=== PATIENT | male | born 1950 | race Caucasian/White ===

== ENCOUNTER 2021-08-30 09:27 | Outpatient (CLI) | payer MEDICARE, SELFPAY ==
[2021-08-30 19:05] LABS: Hematocrit 46.3 % (42.0-52.0); Hemoglobin 15.5 g/dL (14.0-18.0); Mean Corpuscular HGB Conc 33.5 g/dl (32-36); Mean Corpuscular Hemoglobin 32.4 pg (26-34); Mean Corpuscular Volume 96.9 fl (80-100); Mean Platelet Volume 11.4 fl (7.4-10.4); Platelet Count Result 249 k/mm3 (150-375); Red Blood Count 4.78 M/mm3 (4.6-6.20); Red Cell Distribution Width 13.3 % (11.5-14.5); White Blood Count 8.8 K/mm3 (4.5-10.0)
[2021-08-30 19:26] LABS: Mucus Urine Rare /lpf; WBC Urine 0-3 /hpf (0-3)
[2021-08-30 19:32] LABS: Alanine Aminotransferase 14 U/L (6-50); Albumin Level 4.8 g/dL (3.5-5.1); Alkaline Phosphatase 111 U/L (38-126); Anion Gap 9 mmol/L (8-16); Aspartate Amino Transferase 24 U/L (17-59); Bilirubin,Total 0.7 mg/dL (0.2-1.3); Blood Urea Nitrogen 14 mg/dL (9-20); Calcium 9.7 mg/dL (8.4-10.2); Carbon Dioxide 25 mmol/L (22-30); Chloride 104 mmol/L (98-107); Cholesterol 264 mg/dL (0-200); Estimated Glomerular Filt Rate > 60; Glucose 102 mg/dL (65-110); HDL Direct 54 mg/dL; Potassium 4.4 mmol/L (3.4-5.0); Sodium 138 mmol/L (137-145); Triglycerides 76 mg/dL (<150)
[2021-08-30 19:43] LABS: LDL Cholesterol Direct 181 mg/dL
[2021-08-30 19:46] LABS: Appearance Urine Clear (Clear); Bilirubin Urine Negative (Negative); Blood Urine Negative (Negative); Color Urine Yellow (Yellow); Glucose Urine UA Negative (Negative); Ketones Urine Negative (Negative); Leukocyte Esterase Ur Negative LEU/UL (NEGATIVE); Nitrate Urine Negative (Negative); Protein Urine Negative (Negative); Urobilinogen Urine 0.2 mg/dL (<2.0)
[2021-08-30 19:50] LABS: Add Urine Microscopic? NO
[2021-08-30 20:01] LABS: Prostate Specific Antigen 8.4 ng/mL (< OR = 4.0)
== END 2021-08-30 09:28 | disposition home or self-care (01) ==
PROVIDERS: PCP Family Medicine; Visit Provider Family Medicine
DX: R97.20 Elevated prostate specific antigen [PSA] (principal); Z13.29 Encounter for screening for other suspected endocrine disorder; I10 Essential (primary) hypertension; R55 Syncope and collapse
CPT/HCPCS: 36415; 80053; 80061; 81003; 84153; 85027; G0103

== ENCOUNTER 2021-09-05 12:58 | Outpatient (CLI) | payer MEDICARE, SELFPAY ==
--- NOTE | ~2021-09-05 | MR_ITS ---
EXAMINATION: MR brain/brain stem wo/w con DATE: 09/05/2021 13:57 INDICATION: Syncope and collapse. TECHNIQUE: Magnetic resonance imaging (MRI) of the brain and brainstem was performed without and with 14 mL MultiHance intravenous contrast. COMPARISON: None. FINDINGS: There are scattered areas of nonspecific increased T2-weighted signal intensity in the cere bral white matter, which is within normal limits for the patient's age. 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 There is no intracranial hemorrhage, acute infarction, or abn ormal intracranial mass lesion. The ventricles are normal in size. The paranasal sinuses are clear. T he orbits are normal. The mastoid air cells are normal. IMPRESSION: 1. 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 Reviewed, dictated and finalized at location A.
== END 2021-09-05 12:59 | disposition home or self-care (01) ==
PROVIDERS: PCP Family Medicine; Visit Provider Family Medicine
DX: R55 Syncope and collapse (principal)
CPT/HCPCS: 70553; A9577

== ENCOUNTER 2021-12-25 12:35 | Emergency (ER) | payer MEDICARE, SELFPAY ==
[2021-12-25 12:43] VITALS: BP 150/90; PULSE 85; RESP 18; TEMP 36.2; O2SAT 97
[2021-12-25 13:06] LABS: Appearance Urine Clear (Clear); Bilirubin Urine Negative (Negative); Blood Urine 2+ (Negative); Color Urine Yellow (Yellow); Glucose Urine UA Negative (Negative); Ketones Urine 1+ mg/dL (Negative); Leukocyte Esterase Ur Negative LEU/UL (Negative); Nitrate Urine Negative (Negative); Protein Urine Trace mg/dL (Negative); Urobilinogen Urine 0.2 mg/dL (<2.0); pH Urine 5.5 (5.0-9.0)
--- NOTE | 2021-12-25 13:15 | ED.MALEGU ---
HPI - Male Genitourinary General Chief complaint: Urogenital-Male Stated complaint: unable to urinate Time Seen by Provider: 12/25/21 12:47 History of Present Illness HPI Narrative: Patient is a 8-year-old male who presents ER with urinary retention. He has lower abdominal pain. Has not urinated since 10 PM last night. Denies fevers or chills or sweats. Has history of enlarged prostate and has had urinary retention previously. He is not currently on Flomax or finasteride. No dysuria/hematuria. Related Data Home Medications Medication Instructions Recorded Confirmed aspirin,buffered(calcium PO 08/30/21 12/14/21 [id number]-rpgaxayo hydrx) 500 mg tablet Allergies Allergy/AdvReac Type Severity Reaction Status Date / Time No Known Allergies Allergy Unverified 12/14/21 14:08 Review of Systems Review of Systems: All systems reviewed & are unremarkable except as noted in HPI and below Constitutional: Constitutional: Denies chills and Denies fever(s) Gastrointestinal: Gastrointestinal: Reports abdominal pain, Denies nausea and Denies vomiting Genitourinary: Genitourinary: Denies hematuria, Reports oliguria and Denies dysuria PMFSH Past Medical History Medical History BPH (benign prostatic hyperplasia) Tobacco abuse Family History Family History Father History of alcoholism Heart disease Cerebrovascular accident Mother Diabetes mellitus Depression Sibling Lung cancer Other Thyroid disorder Social History Social History Social History: Single Smoking packs per day: 1 Smoking cigarettes per day: 20.0 Years smoked: 12 Smoking pack-years: 12.00 Smoking status: Current every day smoker Tobacco type: cigarettes Second hand tobacco smoke exposure: Yes Alcohol intake: former Alcohol use details: Pt quit drinking 6 weeks ago. Substance use: current Substance use type: marijuana Last use: Pt last usage was last night. 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 Gender identity (if verbalized by the patient): Male Sexual Orientation (if Verbalized by the Patient): Straight or Heterosexual Exam Narrative: GENERAL: Uncomfortable-appearing, well-nourished, and in no acute distress. HEAD: Normocephalic, atraumatic. ABDOMEN: Soft, distended bladder and lower abdomen that is tender. EXTREMITIES: Normal range of motion. No edema. SKIN: Warm, dry, no rash. NEURO: Alert and oriented x3. PSYCH: Normal mood and affect. Course Course Emergency Course: 1400 mL of urine obtained. Discharge home with [facility]. Recommend follow-up with urology. Vital Signs Vital signs: Vital Signs Temperature 97.2 F L 12/25/21 12:43 Pulse Rate 85 12/25/21 12:43 Respiratory Rate 18 12/25/21 12:43 Blood Pressure 150/90 H 12/25/21 12:43 Pulse Oximetry 97 12/25/21 12:43 Oxygen Delivery Room Air 12/25/21 12:43 Temperature 97.2 F L 12/25/21 12:43 Pulse Rate 85 12/25/21 12:43 Respiratory Rate 18 12/25/21 12:43 Blood Pressure 150/90 H 12/25/21 12:43 Pulse Oximetry 97 12/25/21 12:43 Oxygen Delivery Room Air 12/25/21 12:43 MDM - Male Genitourinary Lab Data Labs: Lab Results 12/25/21 Range/Units 12:55 Urine Color Yellow (Yellow) Urine Appearance Clear (Clear) Urine pH 5.5 (5.0-9.0) Ur Specific Chambers 1.010 (1.001-1.035) Urine Protein Trace (Negative) mg/dL Urine Glucose (UA) Negative (Negative) mg/dL Urine Ketones 1+ H (Negative) mg/dL Ur Blood (Man) 2+ H (Negative) Urine Nitrate Negative (Negative) Urine Bilirubin Negative (Negative) Urine Urobilinogen 0.2 (<2.0) mg/dL Leukocyte Esterase Rfl Negative (Negative) TALIA/UL Urine RBC 6-10 H (0-2) /hpf Urine WBC 0-3 /hpf Urine Bacteria Trace /hpf
[2021-12-25 13:17] LABS: Bacteria Urine Trace /hpf; Mucus Urine Rare /lpf; WBC Urine 0-3 /hpf
[2021-12-25 13:19] LABS: Add Urine Microscopic? YES
== END 2021-12-25 13:50 | disposition home or self-care (01) ==
PROVIDERS: Emergency Provider Emergency Medicine; PCP Family Medicine
DX: R33.9 Retention of urine, unspecified (principal); F17.210 Nicotine dependence, cigarettes, uncomplicated; F12.90 Cannabis use, unspecified, uncomplicated
CPT/HCPCS: 51702; 81001; 99283

== ENCOUNTER 2022-05-16 08:31 | Outpatient (CLI) | payer MEDICARE, SELFPAY ==
[2022-05-16 19:30] LABS: Hematocrit 48.7 % (42.0-52.0); Hemoglobin 16.3 g/dL (14.0-18.0); Mean Corpuscular HGB Conc 33.5 g/dl (32-36); Mean Corpuscular Hemoglobin 33.4 pg (26-34); Mean Corpuscular Volume 99.8 fl (80-100); Mean Platelet Volume 12.1 fl (7.4-10.4); Platelet Count Result 214 k/mm3 (150-375); Red Blood Count 4.88 M/mm3 (4.6-6.20); White Blood Count 7.7 K/mm3 (4.5-10.0)
[2022-05-16 19:48] LABS: Chloride 103 mmol/L (98-107)
[2022-05-16 19:53] LABS: Alanine Aminotransferase 17 U/L (6-50); Albumin Level 4.2 g/dL (3.5-5.1); Alkaline Phosphatase 104 U/L (38-126); Anion Gap 6 mmol/L (8-16); Aspartate Amino Transferase 23 U/L (17-59); Bilirubin,Total 0.5 mg/dL (0.2-1.3); Blood Urea Nitrogen 24 mg/dL (9-20); Calcium 9.6 mg/dL (8.4-10.2); Carbon Dioxide 31 mmol/L (22-30); Estimated Glomerular Filt Rate > 60; Glucose 102 mg/dL (65-110); Potassium 4.7 mmol/L (3.4-5.0); Sodium 140 mmol/L (137-145)
[2022-05-16 20:12] LABS: Prostate Specific Antigen 9.6 ng/mL (< OR = 4.0)
[2022-05-20 17:49] LABS: Testosterone Free 78.6 pg/mL (30.0-135.0); Testosterone Total 883 ng/dL (250-1100)
== END 2022-05-16 08:32 | disposition home or self-care (01) ==
LOC: ANHBWCLAB 08:32
PROVIDERS: PCP Family Medicine; Visit Provider Family Medicine
DX: N52.9 Male erectile dysfunction, unspecified (principal); F41.1 Generalized anxiety disorder; R97.20 Elevated prostate specific antigen [PSA]; Z12.5 Encounter for screening for malignant neoplasm of prostate
CPT/HCPCS: 36415; 80053; 84153; 84402; 84403; 84443; 85027; G0103

== ENCOUNTER 2022-06-12 01:14 | Day surgery (SDC) | payer MEDICARE, SELFPAY ==
[2022-05-31 15:55] VITALS: BMI 20.9
--- NOTE | 2022-06-12 11:43 | WPDANESEPPF ---
Anes - Initial Pre Proc Eval Procedure: Operation Date: 06/12/22 13:00 Proposed Procedures p Screening Colonoscopy - Jim Correa MD Date/Time: 06/12/22 11:43 Surgeon: Jim Correa MD Pre Op Diagnosis: neoplasm screening Patient Data Age: 72 Gender: M Height: 1.85 m Weight: 72 kg Allergies Allergy/AdvReac Type Severity Reaction Status Date / Time No Known Allergies Allergy Verified 06/12/22 11:42 Home Medications Medication Instructions Recorded Confirmed Type tamsulosin 0.4 mg capsule 0.4 mg PO DAILY #14 caps 12/25/21 06/12/22 Rx tadalafil 20 mg tablet (Cialis) 20 mg PO DAILY PRN sexual activity 05/16/22 06/12/22 Rx #30 tabs trazodone 100 mg tablet 100 mg PO QHS PRN insomnia #90 tabs 05/16/22 06/12/22 Rx ibuprofen 600 mg tablet 600 mg PO Q6H PRN Pain 05/31/22 06/12/22 History Patient hx anesthesia problems: none Family hx anesthesia problems: none Results Review: All pre-operative results and documents have been reviewed as part of the pre-operative evaluation. ON LICENSE OF [facility] Past Medical History Medical History BPH (benign prostatic hyperplasia) Tobacco abuse Family History Family History Father History of alcoholism Heart disease Cerebrovascular accident Mother Diabetes mellitus Depression Sibling Lung cancer Other Thyroid disorder Social History Social History (Updated 05/16/22 @ 07:40 by Gayathri Prasad MA) Social History: Single Smoking packs per day: 1 Smoking cigarettes per day: 20.0 Years smoked: 18 Smoking pack-years: 18.00 Smoking status: Current every day smoker Tobacco type: cigarettes Second hand tobacco smoke exposure: Yes Alcohol intake: current Drinks per week: 14 Alcohol use details: red wine Substance use: current Substance use type: does not use Last use: Pt last usage was last night. 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 Gender identity (if verbalized by the patient): Male Sexual Orientation (if Verbalized by the Patient): Straight or Heterosexual Spiritual care concerns: No Anes - Eval Final PreProcedure Day of Procedure 06/12/22 11:43 Patient weight: normal Heart: regular rate and rhythm Lungs: clear to auscultation Airway: Mallampati scale class II Neurological: alert and oriented Last oral intake: >/= 8 hours ASA classification: II Emergent: no Anesthetic plan: proceed Anesthesia type and monitoring: general GIVS and standard monitoring Results Review: All pre-operative results and documents have been reviewed as part of the pre-operative evaluation. Informed Consent: The patient's anesthetic plan and its attendant risks and benefits were discussed with the patient/family/POA. Questions were solicited and answers provided to the satisfaction of the patient/family/POA.
[2022-06-12 11:44] VITALS: BP 144/107; PULSE 87; RESP 16; TEMP 36; O2SAT 96; BMI 20.2
[2022-06-12] MEDS: LACTATED RINGERS 1,000 ML 150 ML IV CONT (12:04)
--- NOTE | 2022-06-12 12:22 | PM.HPGS ---
History of Present Illness History of Present Illness Consent: Risks, benefits, and alternatives have been discussed and questions answered. Patient agrees to proceed with procedure. Chief complaint: neoplasm screening Narrative: Cruz Carreon is a 72 year old male with colon polyps 4 years ago Review of Systems Constitutional: Constitutional: Denies headache(s) and Denies weakness Eyes: Eyes: Denies blurry vision ENT: Reports Normal hearing present, Denies headache(s) and Denies neck pain Cardiovascular: Cardiovascular: Denies chest pain and Denies dyspnea Respiratory: Respiratory: Denies dyspnea Gastrointestinal: Gastrointestinal: Reports no additional gastrointestinal complaints Genitourinary: Genitourinary: Denies dysuria Musculoskeletal: Musculoskeletal: Denies neck pain Integumentary/Breasts: Skin/Breast: Denies dry skin Neurologic: Reports Normal hearing present, Denies headache(s) and Denies weakness Psychiatric: Psychiatric: Denies anxiety Endocrine: Endocrine: Denies change in body appearance Hematologic/Lymphatic: Hematologic/Lymphatic: Denies easy bleeding Allergic/Immunologic: Allergic/Immunologic: Denies urticaria PMFSH Past Medical History Medical History (Updated 06/12/22 @ 12:22 by Jim Correa MD) BPH (benign prostatic hyperplasia) Colon polyp Tobacco abuse Family History Family History Father History of alcoholism Heart disease Cerebrovascular accident Mother Diabetes mellitus Depression Sibling Lung cancer Other Thyroid disorder Social History Social History (Updated 05/16/22 @ 07:40 by Gayathri Prasad MA) Social History: Single Smoking packs per day: 1 Smoking cigarettes per day: 20.0 Years smoked: 18 Smoking pack-years: 18.00 Smoking status: Current every day smoker Tobacco type: cigarettes Second hand tobacco smoke exposure: Yes Alcohol intake: current Drinks per week: 14 Alcohol use details: red wine Substance use: current Substance use type: does not use Last use: Pt last usage was last night. 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 Gender identity (if verbalized by the patient): Male Sexual Orientation (if Verbalized by the Patient): Straight or Heterosexual Spiritual care concerns: No Meds Home Medications and Allergies Home Medications Medication Instructions Recorded Confirmed Type tamsulosin 0.4 mg capsule 0.4 mg PO DAILY #14 caps 12/25/21 06/12/22 Rx tadalafil 20 mg tablet (Cialis) 20 mg PO DAILY PRN sexual activity 05/16/22 06/12/22 Rx #30 tabs trazodone 100 mg tablet 100 mg PO QHS PRN insomnia #90 tabs 05/16/22 06/12/22 Rx ibuprofen 600 mg tablet 600 mg PO Q6H PRN Pain 05/31/22 06/12/22 History Allergies Allergy/AdvReac Type Severity Reaction Status Date / Time No Known Allergies Allergy Verified 06/12/22 11:42 Vital Signs Vital Signs - 24 hr 06/12/22 11:44 Temperature 96.8 F L Pulse Rate 87 Respiratory Rate 16 Blood Pressure 144/107 H Pulse Oximetry 96 Oxygen Delivery Room Air Exam Const: General: comfortable and no acute distress HENMT: Face/Nose/Sinus: Normal nares present Eyes: General: appearance normal, both eyes and all related structures Neck: Neck: no JVD Resp: Auscultation: clear to auscultation bilaterally Cardio: Rate: regular rate Rhythm: regular rhythm GI: Inspection: non-distended GI Palp: Yes Soft to palpation Skin: General skin exam: normal color Neuro: Gen
[2022-06-12 12:51] VITALS: BP 113/78; PULSE 64; RESP 16; O2SAT 100
[2022-06-12 13:01] VITALS: BP 141/99; PULSE 60; RESP 18; O2SAT 100
[2022-06-12 13:11] VITALS: BP 149/103; PULSE 62; RESP 18; O2SAT 100
--- NOTE | 2022-06-12 13:14 | SUR.PHASEII ---
PT'S BLOOD 149/103, PT STATES HE HAS NOT TAKEN HIS BLOOD PRESSURE MEDS TODAY, DR GARCIA NOTIFIED, DR GARCIA SEEING PT, DR GARCIA INSTRUCTED PT TO RESUME HIS HOME MEDS ONCE HE IS HOME, PT STATES UNDERSTANDING WITH NO CONCERNS.
== END 2022-06-12 13:17 | disposition home or self-care (01) ==
PROVIDERS: PCP Family Medicine; Visit Provider Internal Medicine Gastroenterology
PROC: 0DJD8ZZ Inspection of Lower Intestinal Tract, Via Natural or Artificial Opening Endoscopic (ICD-10-PCS; CPT 45378; principal; 2022-06-12 13:00)
DX: Z12.11 Encounter for screening for malignant neoplasm of colon (principal); D12.4 Benign neoplasm of descending colon; K63.5 Polyp of colon; K57.30 Diverticulosis of large intestine without perforation or abscess without bleeding; K64.8 Other hemorrhoids; N40.0 Benign prostatic hyperplasia without lower urinary tract symptoms; F17.210 Nicotine dependence, cigarettes, uncomplicated
CPT/HCPCS: 45385; 88305; J2704; J7120

== ENCOUNTER 2023-10-30 22:00 | Emergency (ER) | payer MEDICARE, SELFPAY ==
--- NOTE | ~2023-10-30 | CT_ITS ---
EXAMINATION: CTA brain carotid DATE: 10/30/2023 23:45 INDICATION: syncope, HAs, hx cva TECHNIQUE: Computed tomographic angiography (CTA) of the head was performed without and with 100 mL O mnipaque-350 intravenous contrast. CTA of the neck was performed with intravenous contrast. Automated exposure control and iterative reconstruction technique were employed. The dose-length product was 1 698.84 mGy-cm. Maximum intensity projection and volume rendered 3D-reconstructions were created by tone smith technologist on a separate workstation. COMPARISON: MR brain 09/05/2021. FINDINGS: CT BRAIN: No acute large vessel infarct, intracranial hemorrhage, mass, or hydrocephalus. Moderate atrophy and chronic white matter change. Atherosclerotic intracranial calcification. Bilateral basal ganglia calc ification. CTA HEAD: No large vessel occlusion, aneurysm, high flow vascular malformation, nidus or extravasation. Symmetr ic parenchymal enhancement. Patent cerebral veins. CTA NECK: Aortic arch and proximal great vessels: Normal arch anatomy. Moderate calcified and noncalcified plaq ue at the arch. Right common carotid, carotid bifurcation, and internal carotid artery: Predominantly noncalcified pl aque at the bifurcation.There is 47% stenosis of the proximal right internal carotid artery relative to normal distal artery lumen diameter (NASCET criteria). Left common carotid, carotid bifurcation, and internal carotid artery: Heavy calcified and noncalcifi ed plaque at the bifurcation.Severe stenosis of the proximal internal carotid artery with pinpoint pa tency (axial image 137/246). Standard measurement yields a stenosis of at least 70% but this is under estimated due to the narrowed caliber of the more distal internal carotid artery, likely due to sever silvino reduced flow. Vertebral arteries: No significant plaque or stenosis. Other findings: Biapical pleural scarring. Apical blebs. IMPRESSION: No acute intracranial process. No large vessel intracranial occlusion, high-grade intracranial stenosis, or aneurysm. 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 N arrowed caliber of the more distal internal carotid artery likely due to decreased flow. No carotid or vertebral artery occlusion or dissection Reviewed, dictated and finalized at location K. IMPRESSION: No acute intracranial process. No large vessel intracranial occlusion, high-grade intracranial stenosis, or an eurysm. 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 Narrowed caliber of the more distal internal carotid arter y likely due to decreased flow. No carotid or vertebral artery occlusion or dissection
--- NOTE | ~2023-10-30 | XR_ITS ---
EXAMINATION: XR chest 2V Exam Date/Time: 10/30/2023 22:36 CDT HISTORY: syncope Comparison: None. RESULT: Lines, tubes, and devices: None. Lungs and pleura: Clear. Cardiomediastinal silhouette: Stable. Other: No acute upper abdominal finding. Mild anterior wedge deformity of multiple mid thoracic vert ebral bodies. IMPRESSION: No acute cardiopulmonary process. Multilevel mild wedge compression fractures in the midthoracic spine, likely chronic unless accompani ed by acute pain/tenderness Reviewed, dictated and finalized at location K. IMPRESSION: No acute cardiopulmonary process. Multilevel mild wedge compression fractures in the midthoracic spine, likely ch ronic unless accompanied by acute pain/tenderness
[2023-10-30 22:02] VITALS: BP 131/82; PULSE 62; RESP 17; TEMP 36.4; O2SAT 96
--- NOTE | 2023-10-30 22:19 | ECG_ITS ---
Test Date: 2023-10-30 22:34:55 Measurements Intervals [place] Rate: 59 P: 64 TN: 170 QRS: 87 QRSD: 145 T: 59 QT: 437 QTc: 436 Interpretive Statements SINUS BRADYCARDIA RIGHT BUNDLE BRANCH BLOCK BASELINE WANDER- V2-V3 ABNORMAL ECG No previous ECG available for comparison Electronically Signed On 10-31-2023 07:15:01 CDT by Dread Roberts D.O.
[2023-10-30 22:30] LABS: Basophils Absolute Auto 0.1 K/mm3 (0.0-0.1); Basophils Percent Auto 0.7 % (0.2-1.2); Eosinophils Absolute Auto 0.4 K/mm3 (0-0.3); Eosinophils Percent Auto 3.4 % (0-4.4); Hematocrit 40.9 % (42.0-52.0); Hemoglobin 14.2 g/dL (14.0-18.0); Immature Granulocyte Absolute 0.06 K/mm3 (0.00-0.031); Immature Granulocyte Percent A 0.6 % (0-0.5); Lymphocytes Absolute Auto 2.42 K/mm3 (0.9-3.2); Lymphocytes Percent Auto 23.7 % (18.3-44.2); Mean Corpuscular HGB Conc 34.7 g/dl (32-36); Mean Corpuscular Hemoglobin 33.3 pg (26-34); Monocytes Absolute Auto 0.5 K/mm3 (0.1-0.6); Monocytes Percent Auto 4.9 % (2.6-8.5); Neutrophils Absolute Auto 6.8 K/mm3 (1.3-6.7); Neutrophils Percent Auto 66.7 % (45.5-73.1); Platelet Count Result 208 k/mm3 (150-375); Red Blood Count 4.26 M/mm3 (4.6-6.20); Red Cell Distribution Width 12.8 % (11.5-14.5); White Blood Count 10.2 K/mm3 (4.5-10.0)
[2023-10-30 22:44] LABS: Alanine Aminotransferase 17 U/L (6-50); Albumin Level 4.7 g/dL (3.5-5.1); Alkaline Phosphatase 78 U/L (38-126); Anion Gap 9 mmol/L (4-12); Aspartate Amino Transferase 24 U/L (17-59); Bilirubin,Total 0.8 mg/dL (0.2-1.3); Blood Urea Nitrogen 18 mg/dL (9-20); Calcium 9.3 mg/dL (8.4-10.2); Carbon Dioxide 26 mmol/L (22-30); Chloride 100 mmol/L (98-107); Estimated CRCL calculation 41 ml/min; Estimated Glomerular Filt Rate 43; Glucose 109 mg/dL (65-110); Potassium 3.7 mmol/L (3.4-5.0); Sodium 135 mmol/L (137-145)
--- NOTE | 2023-10-30 23:23 | ED.SYNCOPE ---
HPI - Syncope General Chief Complaint: Syncope Stated Complaint: syncope Time Seen by Provider: 10/30/23 23:07 Source: patient Mode of arrival: EMS Limitations: no limitations History of Present Illness HPI narrative: Patient is a 73-year-old male who presents to the ED via EMS with report of near syncope. Patient reports he smoked half of a joint earlier this evening. 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 He then lowered himself to the ground and closed his eyes. Bystanders gave him water and called for EMS. Patient does not believe he fully lost consciousness. He does report history of similar episodes in the past. 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 He states he did not eat anything today aside from a [employer] candy bar. He does report history of migraines and states he has been having fairly frequent migraines of the last several weeks. Typically takes excedrin w/ relief. He does complain of a headache currently, mild fatigue/ weakness, otherwise states he feels back to his normal. Denies any chest pain, shortness of breath, neck or back pain, vision changes, focal weakness or numbness. Related Data Allergies Allergy/AdvReac Type Severity Reaction Status Date / Time No Known Allergies Allergy Verified 10/30/23 22:07 Review of Systems Review of Systems: CONSTITUTIONAL: Reports diaphoresis. ENT: Denies vision changes. CARDIOVASCULAR: Denies chest pain, palpitations, or edema. RESPIRATORY: Denies cough or dyspnea. GASTROINTESTINAL: See HPI MUSCULOSKELETAL: Denies back pain, extremity pain, myalgia. NEUROLOGIC: See HPI. All systems reviewed & are unremarkable except as noted in HPI and below PMFSH Past Medical History Medical History BPH (benign prostatic hyperplasia) Colon polyp Tobacco abuse Family History Family History Father History of alcoholism Heart disease Cerebrovascular accident Mother Diabetes mellitus Depression Sibling Lung cancer Other Thyroid disorder Social History Social History Social History: Single Smoking packs per day: 0.5 Smoking cigarettes per day: 10.0 Years smoked: 18 Smoking pack-years: 9.00 Smoking status: Current every day smoker Tobacco type: cigarettes Second hand tobacco smoke exposure: Yes Alcohol intake: current Drinks per week: 14 Alcohol use details: red wine Substance use: current Substance use type: does not use Last use: Pt last usage was last night. 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 Gender identity (if verbalized by the patient): Male Sexual Orientation (if Verbalized by the Patient): Straight or Heterosexual Spiritual care concerns: No Exam Narrative: GENERAL: Well appearing, well-nourished, non-toxic, in no acute distress. HEAD: Normocephalic, atraumatic. EYES: PERRL/EOMI, conjunctivae clear bilaterally. No nystagmus. NECK: Supple. No meningeal signs. RESPIRATORY: Airway patent, respirations nonlabored. Clear to auscultation bilaterally, no rales, rhonchi, wheezing. CARDIOVASCULAR: Regular rate and rhythm without murmurs, rubs, or gallops. MUSCULOSKELETAL: Moves all extremities. No gross deformities. SKIN: Warm, dry, normal color. No rashes. NEURO: A&O X3. Speech clear. Fol
[2023-10-30 23:52] VITALS: BP 138/86; PULSE 65
[2023-10-30 23:54] VITALS: BP 148/97; PULSE 71
[2023-10-30 23:56] VITALS: BP 143/104; PULSE 73
[2023-10-31] MEDS: SODIUM CHLORIDE 0.9% IV 1,000 ML 999 ML IV CONT ×2 (00:10)
[2023-10-31 00:11] LABS: Magnesium 1.8 mg/dL (1.6-2.3)
[2023-10-31] MEDS: ACETAMINOPHEN/ASPIRIN/CAFFEINE 250-250-65 MG TABLET 1 TABLET PO (00:11)
[2023-10-31 00:21] VITALS: BP 142/96; PULSE 65; RESP 14; O2SAT 98
[2023-10-31 00:24] LABS: Troponin I < 0.012 ng/mL (0.000-0.034)
== END 2023-10-31 02:32 | disposition home or self-care (01) ==
PROVIDERS: Emergency Medicine; Emergency Provider Physician Assistant; PCP Family Medicine
DX: I65.29 Occlusion and stenosis of unspecified carotid artery (principal); R55 Syncope and collapse; E86.0 Dehydration; R00.1 Bradycardia, unspecified; F17.210 Nicotine dependence, cigarettes, uncomplicated
CPT/HCPCS: 36415; 70496; 70498; 71046; 80053; 83735; 84484; 85025; 93005; 96360; 96361; 99284; A9270; J7030; Q9967

== ENCOUNTER 2023-12-18 19:04 | Emergency (ER) | payer MEDICARE, SELFPAY ==
[2023-12-18] VITALS (7 sets, daily range): BP systolic 134–192; BP diastolic 96–123; PULSE 63–90; RESP 15–21; TEMP 36.4; O2SAT 99–100
--- NOTE | ~2023-12-18 | CT_ITS ---
EXAMINATION: CTA brain carotid DATE: 12/18/2023 21:31 INDICATION: Headache. Recent carotid endarterectomy. TECHNIQUE: Computed tomographic angiography (CTA) of the head was performed without and with 100 mL O mnipaque-350 intravenous contrast. CTA of the neck was performed with intravenous contrast. Automated exposure control and iterative reconstruction technique were employed. The dose-length product was 1 366.56 mGy-cm. Maximum intensity projection and volume rendered 3D-reconstructions were created by tone smith technologist on a separate workstation. COMPARISON: CTA 10/30/2023 FINDINGS: HEAD CTA: There are scattered areas of low attenuation in the cerebral white matter, which is within normal limits for the patient's age. There is no intracranial hemorrhage, acute infarction, or abnorm al intracranial mass lesion. The ventricles are normal in size. There is mild mucosal thickening in t he paranasal sinuses. The orbits are normal. There are old fracture deformities of the nasal processe s of maxilla. The mastoid air cells are normal. Right vertebral artery is dominant. There is no signi ficant stenosis of basilar artery or the posterior cerebral arteries. There is no significant stenosi s of the intracranial internal carotid arteries or anterior or middle cerebral arteries. Anterior com municating artery is normal. There is no aneurysm. Right posterior communicating artery is not identi fied. Left posterior communicating artery is normal. NECK CTA: There is mild emphysema. There is mild scarring at the lung apices. There is no significant stenosis of the vertebral arteries. There is plaque in the proximal internal carotid arteries. There is 11% stenosis of the proximal right internal carotid artery relative to normal distal artery lumen diameter (NASCET criteria). There is 7% stenosis of the proximal left internal carotid artery relati ve to normal distal artery lumen diameter. There is severe cervical spondylosis. IMPRESSION: 1. Normal aging brain. 2. No aneurysm or significant intracranial arterial stenosis. 3. 11% stenosis of the proximal right internal carotid artery relative to normal distal artery lumen diameter (NASCET criteria). 4. 7% stenosis of the proximal left internal carotid artery relative to normal distal artery lumen di ameter. Reviewed, dictated and finalized at location A. IMPRESSION: 1. Normal aging brain. 2. No aneurysm or significant intracranial arterial stenosis. 3. 11% stenosis of the proximal right internal carotid artery relative to beth l distal artery lumen diameter (NASCET criteria). 4. 7% stenosis of the proximal left internal carotid artery relative to normal distal artery lumen diameter.
--- NOTE | 2023-12-18 20:03 | ED.GENADULT ---
HPI - General Adult General Chief complaint: Recheck/Abnormal Lab/Rx Stated complaint: surgery 3 wk ago, HTN, migraine Time Seen by Provider: 12/18/23 19:37 History of Present Illness HPI narrative: This is a a 73-year-old male presenting 3 weeks after a left carotid enterectomy. The patient says he has been having his typical migraine which is a pounding primarily on the left side. He has been taking Excedrin with some improvement but is still having difficulty sleeping. Patient says that this is his normal migraine is worse in intensity. He has no neurologic deficits such as slurred speech or upper extremity weakness. Related Data Allergies Allergy/AdvReac Type Severity Reaction Status Date / Time No Known Allergies Allergy Verified 11/05/23 11:40 [facility] Past Medical History Medical History BPH (benign prostatic hyperplasia) Colon polyp Tobacco abuse Family History Family History Father History of alcoholism Heart disease Cerebrovascular accident Mother Diabetes mellitus Depression Sibling Lung cancer Other Thyroid disorder Social History Social History Social History: Single Smoking packs per day: 0.5 Smoking cigarettes per day: 10.0 Years smoked: 18 Smoking pack-years: 9.00 Smoking status: Current every day smoker Tobacco type: cigarettes Second hand tobacco smoke exposure: Yes Alcohol intake: former Substance use: current Substance use type: marijuana Last use: Pt last usage was last night. 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 Gender identity (if verbalized by the patient): Male Sexual Orientation (if Verbalized by the Patient): Straight or Heterosexual Spiritual care concerns: No Exam Narrative: APPEARANCE: No apparent distress. Well-appearing Head: atraumatic. EYES: EOMI, NOSE: Atraumatic NECK: Well-healed surgical scar over the left side of the neck, full pulses, no masses RESPIRATORY: No increased rate of breathing CARDIOVASCULAR: RRR, ABDOMINAL: Non-distended MUSCULOSKELETAl: No obvious deformities NEURO: Alert. Cranial nerves 2-12 grossly intact. Sensation light touch, motor function cerebellar function intact for 4 extremities. Gait exam was normal. SKIN:: Warm, dry. Normal color PSYCHIATRIC: Normal affect Course Vital Signs Vital signs: Vital Signs Temperature 97.5 F L 12/18/23 19:06 Pulse Rate 90 12/18/23 19:06 Respiratory Rate 16 12/18/23 19:06 Blood Pressure 192/121 H 12/18/23 19:06 Pulse Oximetry 100 12/18/23 19:06 Oxygen Delivery Room Air 12/18/23 19:06 Temperature 97.5 F L 12/18/23 19:06 Pulse Rate 63 12/18/23 20:31 Respiratory Rate 15 12/18/23 20:31 Blood Pressure 184/123 H 12/18/23 20:31 Pulse Oximetry 100 12/18/23 20:31 Oxygen Delivery Room Air 12/18/23 19:06 Medical Decision Making [facility] Narrative Medical decision making narrative: -Course: 73-year-old male presenting with his typical migraine except he had a carotid enterectomy 3 weeks ago. CTA showed normal carotids with no significant stenosis. Patient responded to migraine cocktail. He does have elevated blood pressures which can be followed by his primary care physician just inhale. Patient discharged with close primary care follow-up return precautions. -DDX includes but is not limited to: Migraine, stenosis of the carotids, ICH -Co-morbidities complicating
[2023-12-18] MEDS: ACETAMINOPHEN 500 MG TABLET 1000 MG PO (20:20)
[2023-12-18] MEDS: diphenhydrAMINE HCl INJ 50 MG/ML VIAL 25 MG IV PUSH (20:21)
[2023-12-18 20:35] LABS: Basophils Absolute Auto 0.1 K/mm3 (0.0-0.1); Basophils Percent Auto 0.7 % (0.2-1.2); Eosinophils Absolute Auto 0.4 K/mm3 (0-0.3); Eosinophils Percent Auto 4.8 % (0-4.4); Hematocrit 39.2 % (42.0-52.0); Hemoglobin 13.3 g/dL (14.0-18.0); Immature Granulocyte Absolute 0.03 K/mm3 (0.00-0.031); Immature Granulocyte Percent A 0.3 % (0-0.5); Lymphocytes Absolute Auto 2.32 K/mm3 (0.9-3.2); Lymphocytes Percent Auto 26.7 % (18.3-44.2); Mean Corpuscular HGB Conc 33.9 g/dl (32-36); Mean Corpuscular Hemoglobin 32.8 pg (26-34); Mean Corpuscular Volume 96.6 fl (80-100); Mean Platelet Volume 11.7 fl (7.4-10.4); Monocytes Absolute Auto 0.8 K/mm3 (0.1-0.6); Monocytes Percent Auto 9.1 % (2.6-8.5); Neutrophils Absolute Auto 5.1 K/mm3 (1.3-6.7); Neutrophils Percent Auto 58.4 % (45.5-73.1); Platelet Count Result 212 k/mm3 (150-375); Red Blood Count 4.06 M/mm3 (4.6-6.20); Red Cell Distribution Width 12.6 % (11.5-14.5); White Blood Count 8.7 K/mm3 (4.5-10.0)
[2023-12-18 20:44] LABS: Alanine Aminotransferase 24 U/L (6-50); Albumin Level 4.3 g/dL (3.5-5.1); Alkaline Phosphatase 92 U/L (38-126); Anion Gap 12 mmol/L (4-12); Aspartate Amino Transferase 22 U/L (17-59); Bilirubin,Total 0.6 mg/dL (0.2-1.3); Blood Urea Nitrogen 25 mg/dL (9-20); Calcium 9.6 mg/dL (8.4-10.2); Carbon Dioxide 25 mmol/L (22-30); Chloride 100 mmol/L (98-107); Estimated CRCL calculation 56 ml/min; Estimated Glomerular Filt Rate > 60; Glucose 100 mg/dL (65-110); Potassium 4.4 mmol/L (3.4-5.0); Sodium 137 mmol/L (137-145)
== END 2023-12-18 21:55 | disposition home or self-care (01) ==
PROVIDERS: Emergency Provider Emergency Medicine; PCP Family Medicine
DX: G43.909 Migraine, unspecified, not intractable, without status migrainosus (principal); R03.0 Elevated blood-pressure reading, without diagnosis of hypertension; Z98.890 Other specified postprocedural states; N40.0 Benign prostatic hyperplasia without lower urinary tract symptoms; F17.210 Nicotine dependence, cigarettes, uncomplicated; Z86.010 Personal history of colon polyps; I65.23 Occlusion and stenosis of bilateral carotid arteries
CPT/HCPCS: 36415; 70496; 70498; 80053; 85025; 96374; 99284; A9270; J1200; Q9967

== ENCOUNTER 2024-02-15 21:35 | Observation (INO) | payer MEDICARE, SELFPAY ==
--- NOTE | ~2024-02-15 | XR_ITS ---
XR chest 2V Ordering provider: Damien Wooten MD History: 73 years Male with . syncopal episode . Comparison: October 30, 2023 FINDINGS: MEDIASTINUM: The cardiac silhouette is not enlarged. LUNGS: No infiltrates, effusions or pneumothorax. Underlying emphysematous changes. OTHER: No free air under the diaphragm. IMPRESSION: No acute cardiopulmonary pathology. Reviewed, dictated and finalized at location A.
--- NOTE | ~2024-02-15 | US_ITS ---
EXAMINATION: US renal BI DATE: 02/16/2024 09:02 INDICATION: Acute renal insufficiency TECHNIQUE: Multiple ultrasound grayscale images of the kidneys were obtained. COMPARISON: None. FINDINGS: The right kidney measures 11.3 x 4.1 x 4.7 cm. The left kidney measures 11.1 x 5.9 x 4.8 cm. The kidn eys demonstrate normal echogenicity. There is no hydronephrosis in either kidney. No stones identifi ed. The bladder is normal. Prostatomegaly. IMPRESSION: 1. Normal kidneys without hydronephrosis. 2. Prostatomegaly. Reviewed, dictated and finalized at location A.
[2024-02-15 21:35] VITALS: BP 106/77; PULSE 63; RESP 14; TEMP 36.2; O2SAT 100
[2024-02-15 21:45] VITALS: PULSE 61
--- NOTE | 2024-02-15 21:45 | ECG_ITS ---
Test Date: 2024-02-15 21:48:11 Measurements Intervals [place] Rate: 59 P: 71 DC: 169 QRS: 85 QRSD: 140 T: 48 QT: 466 QTc: 463 Interpretive Statements SINUS BRADYCARDIA RIGHT BUNDLE BRANCH BLOCK BASELINE WANDER- III ABNORMAL ECG Compared to ECG 10/30/2023 22:34:55 No significant changes Electronically Signed On 02-16-2024 07:52:29 CDT by Dread Roberts D.O.
[2024-02-15 21:47] VITALS: BP 107/79; PULSE 61; RESP 18; TEMP 36.2; O2SAT 100
[2024-02-15 21:58] LABS: Basophils Absolute Auto 0.1 K/mm3 (0.0-0.1); Basophils Percent Auto 0.8 % (0.2-1.2); Eosinophils Absolute Auto 0.4 K/mm3 (0-0.3); Eosinophils Percent Auto 4.5 % (0-4.4); Hematocrit 33.9 % (42.0-52.0); Hemoglobin 11.6 g/dL (14.0-18.0); Immature Granulocyte Absolute 0.05 K/mm3 (0.00-0.031); Immature Granulocyte Percent A 0.6 % (0-0.5); Lymphocytes Absolute Auto 2.47 K/mm3 (0.9-3.2); Lymphocytes Percent Auto 27.3 % (18.3-44.2); Mean Corpuscular HGB Conc 34.2 g/dl (32-36); Mean Corpuscular Hemoglobin 33.1 pg (26-34); Mean Corpuscular Volume 96.9 fl (80-100); Mean Platelet Volume 10.3 fl (7.4-10.4); Monocytes Absolute Auto 0.6 K/mm3 (0.1-0.6); Monocytes Percent Auto 6.3 % (2.6-8.5); Neutrophils Absolute Auto 5.5 K/mm3 (1.3-6.7); Neutrophils Percent Auto 60.5 % (45.5-73.1); Platelet Count Result 247 k/mm3 (150-375); Red Cell Distribution Width 13.1 % (11.5-14.5); White Blood Count 9.1 K/mm3 (4.5-10.0)
[2024-02-15 22:10] LABS: Alanine Aminotransferase 15 U/L (6-50); Albumin Level 4.3 g/dL (3.5-5.1); Alkaline Phosphatase 88 U/L (38-126); Anion Gap 9 mmol/L (4-12); Aspartate Amino Transferase 25 U/L (17-59); Bilirubin,Total 0.6 mg/dL (0.2-1.3); Blood Urea Nitrogen 34 mg/dL (9-20); Calcium 9.5 mg/dL (8.4-10.2); Carbon Dioxide 26 mmol/L (22-30); Chloride 101 mmol/L (98-107); Estimated CRCL calculation 26 ml/min; Estimated Glomerular Filt Rate 26; Glucose 119 mg/dL (65-110); Potassium 3.5 mmol/L (3.4-5.0); Sodium 136 mmol/L (137-145)
[2024-02-15] MEDS: SODIUM CHLORIDE 0.9% IV 1,000 ML 999 ML IV CONT ×2 (22:40→23:52)
[2024-02-15 22:52] LABS: Troponin I < 0.012 ng/mL (0.000-0.034)
--- NOTE | 2024-02-15 23:04 | ED_ITS ---
HPI - General Adult General Chief complaint: Syncope Stated complaint: Syncope Time Seen by Provider: 02/15/24 21:51 History of Present Illness HPI narrative: patient is a 73-year-old gentleman who presents emergency department with chief complaint of syncopal episode patient reports he was at a restaurant had some garlic bread while he was eating eagerly bread he started to get lightheaded and then had a brief syncopal episode. Patient did report that he had some nausea Related Data Allergies Allergy/AdvReac Type Severity Reaction Status Date / Time No Known Allergies Allergy Verified 02/06/24 14:26 Review of Systems Review of Systems: A 10 system review of systems was completed on the patient and is negative except for what is stated in the HPI. Nursing and ancillary documentation was reviewed. [facility] Past Medical History Medical History BPH (benign prostatic hyperplasia) Colon polyp Tobacco abuse Family History Family History Father History of alcoholism Heart disease Cerebrovascular accident Mother Diabetes mellitus Depression Sibling Lung cancer Other Thyroid disorder Social History Social History (Updated 02/16/24 @ 01:11 by Martha Kimball PA-C) Social History: Surrogate medical decision maker: Code status: Full code. Smoking packs per day: 0.5 Smoking cigarettes per day: 10.0 Years smoked: 18 Smoking pack-years: 9.00 Smoking status: Current every day smoker Tobacco type: cigarettes Second hand tobacco smoke exposure: Yes Alcohol intake: former Substance use: current Substance use type: marijuana Last use: Pt last usage was last night. 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 Spiritual care concerns: No Exam Narrative: GENERAL: Well-appearing, well-nourished, and in no acute distress. HEAD: Normocephalic, atraumatic. EYES: PERRLA and EOMI. ENT: Nares clear, no rhinorrhea or epistaxis. Mucous membranes moist. NECK: Supple. CHEST: Clear to auscultation. No respiratory distress. HEART: Regular rate and rhythm. No murmur heard. Normal peripheral pulses. ABDOMEN: Soft, nontender, nondistended, normal active bowel sounds. EXTREMITIES: Normal range of motion. No edema. SKIN: Warm, dry, no rash. NEURO: No focal deficits. Alert and oriented x3. PSYCH: Normal mood and affect. Course Vital Signs Vital signs: Vital Signs Temperature 36.2 C L 02/15/24 21:35 Pulse Rate 63 02/15/24 21:35 Respiratory Rate 14 02/15/24 21:35 Blood Pressure 106/77 02/15/24 21:35 Pulse Oximetry 100 02/15/24 21:35 Oxygen Delivery Room Air 02/15/24 21:35 Temperature 36.2 C L 02/15/24 21:47 Pulse Rate 61 02/15/24 21:47 Respiratory Rate 18 02/15/24 21:47 Blood Pressure 107/79 02/15/24 21:47 Pulse Oximetry 100 02/15/24 21:47 Oxygen Delivery Room Air 02/15/24 21:35 Medical Decision Making [facility] Narrative Medical decision making narrative: differential diagnosis includes dehydration, electrolyte abnormality, dysrhythmia, vasovagal syncope laboratory studies were obtained on the patient which showed a creatinine of 2.5 the patient has a baseline creatinine of 1.1 troponin was negative EKG showed no acute ischemic changes chest x-ray showed no focal infiltrate Vital Signs Vital Signs: Vital Signs Temperature 36.2 C L 02/15/24 21:35 Pulse Rate 63 02/15/24 21:35 Respiratory Rate 14 02/15/24 21:35 Blood Pressure 106/77 02/15/24 21:35 Pulse Oximetry 100 02/15/24 21:35 Oxygen Delivery Room Air 02/15/24 21:35 Temperature 36.2 C L 02/15/24 21:47 Pulse Rate 61 02/15/24 21:47 Respiratory Rate 18 02/15/24 21:47 Blood Pressure 107/79 02/15/24 21:47 Pulse Oximetry 100 02/15/24 21:47 Oxygen Delivery Room Air 02/15/24 21:35 Lab Data 02/15/24 21:50 02/15/24 21:50 Labs: Lab Results 02/15/24 02/15/2402/14/24 Range/Units 21:49 21:50 22:32 WBC 9.1 (4.5-10.0) K/mm3 RBC 3.50 L (4.6-6.20) M/mm3 Hgb 11.6 L (14.0-18.0) g/dL Hct 33.9 L (42.0-52.0) % MCV 96.9 (80-100) fl MCH 33.1 (26-34) pg MCHC 34.2 (32-36) g/dl RDW 13.1 (11.5-14.5) % Plt Count 247 (150-375) k/mm3 MPV 10.3 (7.4-10.4) fl Immature Gran % (Auto) 0.6 H (0-0.5) % Neut % (Auto) 60.5 (45.5-73.1) % Lymph % (Auto) 27.3 (18.3-44.2) % Barton % (Auto) 6.3 (2.6-8.5) % Eos % (Auto) 4.5 H (0-4.4) % Baso % (Auto) 0.8 (0.2-1.2) % Lymph # (Auto) 2.47 (0.9-3.2) K/mm3 Barton # (Auto) 0.6 (0.1-0.6) K/mm3 Eos # (Auto) 0.4 H (0-0.3) K/mm3 Baso # (Auto) 0.1 (0.0-0.1) K/mm3 Abs Immat Gran (auto) 0.05 H (0.00-0.031) K/mm3 Absolute Neuts (auto) 5.5 (1.3-6.7) K/mm3 Absolute Nucleated RBC 0.000 (0.0-0.012) K/mm3 Nucleated RBC % 0.0 (0.0-0.2) % Sodium 136 L (137-145) mmol/L Potassium 3.5 (3.4-5.0) mmol/L Chloride 101 (98-107) mmol/L Carbon Dioxide 26 (22-30) mmol/L Anion Gap 9 (4-12) mmol/L BUN 34 H (9-20) mg/dL Creatinine 2.50 H (0.7-1.3) mg/dL Estim Creat Clear Calc 26 ml/min Estimated GFR 26 L (59 - ) Glucose 119 H (65-110) mg/dL Calcium 9.5 (8.4-10.2) mg/dL Magnesium 2.0 (1.6-2.3) mg/dL Total Bilirubin 0.6 (0.2-1.3) mg/dL AST 25 (17-59) U/L ALT 15 (6-50) U/L Alkaline Phosphatase 88 (38-126) U/L Troponin I < 0.012 (0.000-0.034) ng/mL Total Protein 7.0 (6.3-8.2) g/dL Albumin 4.3 (3.5-5.1) g/dL Influenza A (RT-PCR) Negative (Negative) Influenza B (RT-PCR) Negative (Negative) RSV (RT-PCR) Negative (Negative) SARS-CoV-2 RNA (RT-PCR) Negative (Negative) Discharge Plan Discharge Clinical Impression: Syncope, Acute kidney injury Patient Disposition: Still a Patient Condition: Stable Prescriptions: No Action amlodipine-benazepril 10-20 mg capsule 1 cap PO DAILY Qty: 90 0RF tadalafil 5 mg tablet 5 mg PO DAILY Qty: 90 0RF amoxicillin-pot clavulanate 875-125 mg tablet 1 tablet PO BID Qty: 10 0RF prednisone 20 mg tablet 40 mg PO DAILY Qty: 10 0RF atorvastatin 40 mg tablet 40 mg PO DAILY Qty: 30 0RF cyclobenzaprine 5 mg tablet 5 mg PO TID PRN (Reason: muscle spasm) Qty: 90 0RF Follow-up/Referrals: Fabiano Mosley MD [Primary Care Provider] - Time of Disposition: 23:08
[2024-02-15 23:15] LABS: Influenza A QL RT-PCR Negative (Negative); Influenza B QL RT-PCR Negative (Negative); RSV RNA, RT-PCR Negative (Negative); SARS-CoV-2 RNA PCR Negative (Negative)
[2024-02-16] VITALS (15 sets, daily range): BP systolic 112–144; BP diastolic 76–94; PULSE 55–94; RESP 12–20; TEMP 36.1–36.6; O2SAT 97–100; BMI 22.3
--- NOTE | 2024-02-16 01:10 | PM.IMHP ---
H&P: HPI History of Present Illness Date/Time: 02/16/24 01:10 Chief Complaint: Syncope. Narrative: This is a pleasant 73-year-old male smoker with history of stroke, carotid artery disease status post left carotid endarterectomy, hypertension, dyslipidemia, and benign prostatic hyperplasia who presented to the emergency department via EMS for evaluation after syncopal episode. The patient provides the following history. 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 Not long prior to arrival he was sitting at the bar eating cheesy garlic bread and talking with colleagues when he began to feel weak, lightheaded, sweaty, and extremely nauseated. Bystanders report that he slumped over and seemed to be unresponsive for several minutes. The patient reports that he could hear what was going on around him but could not respond. With further questioning he reports having an increase in the doses of his antihypertensives sometime last week as his blood pressures were running in the 160s over low 100s. Additionally he was recently started on prednisone and Augmentin for URI symptoms. He has been eating and drinking as per usual and denies vomiting and diarrhea. He also denies cold and flu symptoms, vertigo, focal weakness, chest pain, pleuritic pain, shortness of breath, vomiting, diarrhea, dysuria, lower extremity edema, and calf pain. In the ED: Blood pressure was 106/77 over arrival. The remainder of his vital signs have been stable. Labs were significant for a BUN of 34 and creatinine of 2.50. He tested negative for influenza, RSV, and COVID. Chest x-ray showed no acute cardiopulmonary pathology. EKG showed sinus bradycardia with right bundle-branch block. He was started on IV fluids and is being admitted in this setting with an acute kidney injury and for syncope workup. Review of Systems Review of Systems: 12 systems were reviewed and are negative except for as per HPI. [facility] Past Medical History Medical History (Updated 02/16/24 @ 05:29 by Martha Kimball PA-C) Benign prostatic hyperplasia Cerebrovascular accident (2022) Colon polyp Hypertension Left-sided carotid artery disease Tobacco abuse Surgical History Surgical History (Updated 02/16/24 @ 05:29 by Martha Kimball PA-C) History of left-sided carotid endarterectomy History of open reduction and internal fixation (ORIF) procedure repair of right wrist fracture History of tonsillectomy Family History Family History Father History of alcoholism Heart disease Cerebrovascular accident Mother Diabetes mellitus Depression Sibling Lung cancer Other Thyroid disorder Social History Social History (Updated 02/16/24 @ 05:30 by Martha Kimball PA-C) Social History: Surrogate medical decision maker: Amelia Carreon, sister. Code status: Full code. Smoking packs per day: 0.5 Smoking cigarettes per day: 10.0 Years smoked: 10 Smoking pack-years: 5.00 Smoking status: Current every day smoker Tobacco type: cigarettes Second hand tobacco smoke exposure: Yes Alcohol intake: former Substance use: current Substance use type: marijuana Last use: Pt last usage was last night. 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 Spiritual care concerns: No Meds Home Medications and Allergies Home Medications Medication Instructions Recorded Confirmed Type cyclobenzaprine 5 mg tablet 5 mg PO TID PRN muscle spasm #90 12/19/23 02/16/24 Rx tabs amlodipine 10 mg-benazepril 20 mg 1 cap PO DAILY #90 caps 02/06/24 02/16/24 Rx capsule amoxicillin 875 mg-potassium 1 tablet PO BID #10 tabs 02/06/24 02/16/24 Rx clavulanate 125 mg tablet atorvastatin 40 mg tablet 40 mg PO DAILY #30 tabs 02/06/24 02/16/24 Rx tadalafil 5 mg tablet 5 mg PO DAILY #90 tabs 02/06/24 02/16/24 Rx Allergies Allergy/AdvReac Type Severity Reaction Status Date / Time No Known Allergies Allergy Verified 02/16/24 03:32 Vital Signs Vital Signs - 24 hr 02/15/24 21:35 02/15/24 21:45 02/15/24 21:47 Temperature 97.1 F L 97.1 F L Pulse Rate 63 61 61 Respiratory Rate 14 18 Blood Pressure 106/77 107/79 Pulse Oximetry 100 100 Oxygen Delivery Room Air Exam Narrative: General: Well-developed, nontoxic-appearing gentleman the semi-Crocker position in bed. Weight: 76.7 kg. BMI: 22.3. HEENT: PERRL, EOMI. Sclera anicteric. Tacky mucous membranes. Neck: Supple. No JVD. Respiratory: Lungs are clear to auscultation bilaterally. Cardiovascular: Bradycardic. Gastrointestinal: Abdomen is soft, nontender, and nondistended with positive bowel sounds. Bladder does not feel distended. Skin: Warm and dry. Extremities: No cyanosis, clubbing, or edema. Radial and pedal pulses intact. Neurological: Alert. Cranial nerves 2-12 are grossly intact. No gross focal deficits to casual conversation. Psychiatric: Pleasant and cooperative with normal mood and affect. Judgment and insight intact. H&P: Results Labs Labs: Short CBC 02/15/24 Range/Units 21:50 WBC 9.1 (4.5-10.0) K/mm3 Hgb 11.6 L (14.0-18.0) g/dL Hct 33.9 L (42.0-52.0) % Plt Count 247 (150-375) k/mm3 BMP 02/15/24 21:50 Sodium 136 L Potassium 3.5 Chloride 101 Carbon Dioxide 26 BUN 34 H Creatinine 2.50 H Glucose 119 H Calcium 9.5 Cardiac Enzymes 02/15/24 Range/Units 21:49 Troponin I < 0.012 (0.000-0.034) ng/mL Liver Function 02/15/24 Range/Units 21:50 Total Bilirubin 0.6 (0.2-1.3) mg/dL AST 25 (17-59) U/L ALT 15 (6-50) U/L Alkaline Phosphatase 88 (38-126) U/L Albumin 4.3 (3.5-5.1) g/dL Imaging Chest X-Ray 02/15/24 22:49 IMPRESSION: No acute cardiopulmonary pathology. Assessment and Plan Assessment and plan (1) Syncope: Code(s): R55 - Syncope and collapse Status: Acute (2) Acute kidney injury: Code(s): N17.9 - Acute kidney failure, unspecified Status: Acute (3) Hypertension: Code(s): I10 - Essential (primary) hypertension Status: Acute (4) Benign prostatic hyperplasia: Code(s): N40.0 - Benign prostatic hyperplasia without lower urinary tract symptoms Status: Acute (5) Tobacco abuse: Code(s): Z72.0 - Tobacco use Status: Acute Plan The patient presented to the emergency department for evaluation after syncopal episode as detailed in HPI. Labs, imaging, EKG, and all reports were personally reviewed. The history the patient provides is suspicious for vasovagal syncope. He will be monitored on telemetry to rule out cardiac dysrhythmia though has been in a sinus bradycardia or sinus rhythm without ectopy since arrival. An echocardiogram has been ordered. Recent CTA of the head and neck was without significant findings and does not need to be repeated. Monitor orthostatic vital signs Q shift. He has an acute kidney injury which is of unclear etiology. He has had a drastic change in blood pressures over the last week (he had been running in the 160s to 170s over 120s systolic and is now in the low 100 systolic). He looks a bit dry on exam but states he has been eating and drinking as usual. He has received 2 L of normal saline and we will hold on scheduling any further fluids for now. Bladder scan ordered as he has a history of benign prostatic hyperplasia. Renal ultrasound has also been ordered. Avoid nephrotoxic agents and renally dose all medications. Smoking cessation is encouraged. He declines the need for nicotine patch. His home medications will be reviewed and resumed as appropriate. Findings and treatment plan were discussed with the patient. Questions were solicited and answered to satisfaction. The patient's medical management will be taken over by the hospitalist team in a.m. Quality VTE Prophylaxis VTE prophylaxis: mechanical ordered If No VTE Prophylaxis Answer both mechanical and pharmacologic: Reason no pharmacologic proph: medical contraindication (fall risk) The patient has been admitted under observation status. Hospitalist MIPS Advance Care Plan I have confirmed that the patient's Advanced Care Plan is present, code status is documented, or surrogate decision maker is listed in patient medical record.: Yes Medication Reconciliation I have utilized all available resources to obtain, update and review the patients current medications (includes all prescriptions, OTC, herbals, cannabis, and nutritional supplements).: Yes
--- NOTE | 2024-02-16 03:21 | ADMGEN ---
This patient, Cruz Carreon, was admitted to Medical Room 250-01. Patient/family oriented to hospital policies and general routines including ID bracelet, bed and alarms, visiting hours, pain management, procedures, bathroom and other care routines, personal items, smoking policy, room service/diet, and visiting hours. Information on how to activate the Rapid Response Team has been discussed. Patient/Family are encouraged to report perceived risks to care and to ask questions if they do not understand what they are told or what they should do.
[2024-02-16] MEDS: SODIUM CHLORIDE 0.9% IV 1,000 ML 150 ML IV CONT (03:43)
[2024-02-16 05:36] LABS: Add Urine Microscopic? YES; Appearance Urine Clear (Clear); Bacteria Urine None Seen /hpf; Bilirubin Urine Negative (Negative); Blood Urine Negative (Negative); Color Urine Yellow (Yellow); Glucose Urine UA 2+ mg/dL (Negative); Hyaline Casts Urine Present /lpf; Ketones Urine Negative (Negative); Leukocyte Esterase Ur Trace LEU/UL (Negative); Mucus Urine Present /lpf; Need Manual Microscopic Reviewed; Nitrate Urine Negative (Negative); Non Pathogenic Casts >20; Protein Urine 2+ mg/dL (Negative); RBC Urine 0-2 /hpf (0-2); Specific Grav Ur 1.018 (1.001-1.035); Squamous Epithelial Cell Urine Occasional /hpf (Few); Urobilinogen Urine 0.2 mg/dL (<2.0)
--- NOTE | 2024-02-16 05:37 | ECHO_ITS ---
Patient Info Name: Cruz Carreon Age: 73 years : 1950 Gender: Male Ht: 73 in Wt: 169 lbs BSA: 1.98 m2 HR: 73 bpm BP: 135 / 77 mmHg Heart Rhythm: Sinus Rhythm Technical Quality: Good Exam Date: 02/16/2024 9:52 AM Exam Location: Echo Lab Patient Status: Outpatient Admit Date: 02/16/2024 Staff Ordering Physician: Martha Kimball PA-C Drawing Tender: Cleveland Crabtree RDCS Attending Provider: Tracy Bronson PA-C Referring Physician: Jigar PIERSON; Exam Type: CA echo doppler color flow Study Info Indications - syncope Complete two-dimensional, color flow and Doppler transthoracic echocardiogram is performed. Summary 1. Complete two-dimensional, color flow and Doppler transthoracic echocardiogram is performed. 2. Left ventricular systolic function is normal, estimated at 60-65%. 3. The left ventricular diastolic function is grade II diastolic dysfunction. Left Ventricle Left ventricular chamber dimension is normal. Left ventricular systolic function is normal, estimated at 60-65%. There is no increased left ventricular wall thickness. Left ventricular septal wall motion is normal. The left ventricular diastolic function is grade II diastolic dysfunction. Right Ventricle Right ventricular chamber dimension is normal. Right ventricular systolic function is normal. Left Atria Left atrial chamber dimension is normal. Right Atria Right atrial chamber dimension is normal. Chiari net was seen which is normal finding. Atrial Septum Intact interatrial septum visualized by color flow imaging. Aortic Valve The aortic valve is trileaflet. There is mild aortic valve sclerosis. There is no aortic valve stenosis. There is no aortic valve regurgitation. Pulmonic Valve The pulmonic valve is normal. There is no pulmonic valve stenosis. There is no pulmonic regurgitation. Mitral Valve The mitral valve has normal leaflets. There is no mitral valve stenosis. There is no mitral valve regurgitation. Tricuspid Valve The tricuspid valve leaflets are normal. There is no significant tricuspid valve stenosis. There is no tricuspid valve regurgitation. No pulmonary hypertension, estimated pulmonary arterial systolic pressure is 15 mmHg. Pericardium/Pleural The pericardium appears normal. There is no pericardial effusion. Inferior Vena Cava Normal inferior vena cava with >50% collapse upon inspiration consistent with normal right atrial pressure, 10 mmHg. Aorta The aortic root size at the sinus of Valsalva is normal. The prox ascending aorta size is normal. Left Ventricular Outflow Tract Name Value Normal LVOT 2D LVOT Diameter 1.9 cm LVOT Doppler LVOT Peak Gradient 4 mmHg LVOT Mean Gradient 3 mmHg LVOT VTI 25 cm LVOT VTI/AV VTI Ratio 1.2 LVOT Stroke Volume 72 ml LVOT CO 4.2 l/min LVOT CI 2.1 l/min/m2 Mitral Valve Name Value Normal MV Doppler MV Decel Door 426 cm/s2 MV PHT 51 ms MV Area (PHT) 4.3 cm2 4.0-5.0 MV Diastolic Function MV E Peak Velocity 75 cm/s MV A Peak Velocity 67 cm/s MV E/A 1.1 MV Decel Time 176 ms MV Annular TDI MV E/e' (Septal) 10.3 <=8.0 MV E/e' (Lateral) 9.9 <=8.0 MV E/e' (Average) 10.1 Tricuspid Valve Name Value Normal TV Regurgitation Doppler TR Peak Velocity 112 cm/s TR Peak Gradient 4 mmHg Estimated PAP/RSVP RA Pressure 10 mmHg <=5 PA Systolic Pressure 15 mmHg <36 RV Systolic Pressure 15 mmHg <36 Aortic Valve Name Value Normal AV Doppler AV Peak Velocity 101 cm/s AV Peak Gradient 4 mmHg AV Mean Gradient 2 mmHg AV VTI 21 cm AV Area (Cont Eq VTI) 3.4 cm2 >=3.0 AV Area (Cont Eq Lorenzo) 3.0 cm2 AV Regurgitation 2D LVOT Area 2.9 cm2 Ventricles Name Value Normal LV Dimensions 2D/MM IVS Diastolic Thickness (2D) 1.0 cm 0.6-1.0 LVID Diastole (2D) 4.3 cm 4.2-5.8 LVIW Diastolic Thickness (2D) 0.9 cm 0.6-1.0 LVID Systole (2D) 2.7 cm 2.5-4.0 LVOT Diameter 1.9 cm LV Mass (2D Cubed) 129.80 g 88.00-224.00 LV Mass Index (2D Cubed) 65 g/m2 49-115 Relative Wall Thickness (2D) 0.42 LV Fractional Shortening/Ejection Fraction 2D/MM LV Fractional Shortening (2D) 37 % 25-43 LV EF (2D Teicholz) 67 % 52-72 LV Diastolic Volume (4C MOD) 104 ml LV EF (4C MOD) 58 % LV Diastolic Volume (2C MOD) 96 ml LV EF (2C MOD) 68 % LV Diastolic Volume (BP MOD) 101 ml 62-150 LV Diastolic Volume Index (BP MOD) 51 ml/m2 34-74 LV Systolic Volume (BP MOD) 39 ml 21-61 LV Systolic Volume Index (BP MOD) 20 ml/m2 11-31 LV EF (BP MOD) 61 % 52-72 LV Diastolic Length (4C) 8.0 cm LV Systolic Length (4C) 6.4 cm LV Stroke Volume (4C MOD) 61 ml Atria Name Value Normal LA Dimensions LA Volume (4C A-L) 30 ml RA Dimensions RA Area (4C) 13.3 cm2 <=18.0 Report Signatures
[2024-02-16 05:43] LABS: Basophils Absolute Auto 0.1 K/mm3 (0.0-0.1); Basophils Percent Auto 0.7 % (0.2-1.2); Eosinophils Absolute Auto 0.5 K/mm3 (0-0.3); Eosinophils Percent Auto 6.1 % (0-4.4); Hematocrit 32.3 % (42.0-52.0); Hemoglobin 10.8 g/dL (14.0-18.0); Immature Granulocyte Absolute 0.04 K/mm3 (0.00-0.031); Immature Granulocyte Percent A 0.5 % (0-0.5); Lymphocytes Absolute Auto 2.07 K/mm3 (0.9-3.2); Lymphocytes Percent Auto 27.5 % (18.3-44.2); Mean Corpuscular HGB Conc 33.4 g/dl (32-36); Mean Corpuscular Hemoglobin 32.8 pg (26-34); Mean Corpuscular Volume 98.2 fl (80-100); Mean Platelet Volume 10.9 fl (7.4-10.4); Monocytes Absolute Auto 0.6 K/mm3 (0.1-0.6); Monocytes Percent Auto 7.8 % (2.6-8.5); Neutrophils Absolute Auto 4.3 K/mm3 (1.3-6.7); Neutrophils Percent Auto 57.4 % (45.5-73.1); Platelet Count Result 227 k/mm3 (150-375); Red Blood Count 3.29 M/mm3 (4.6-6.20); Red Cell Distribution Width 13.2 % (11.5-14.5); White Blood Count 7.5 K/mm3 (4.5-10.0)
[2024-02-16 05:54] LABS: Anion Gap 6 mmol/L (4-12); Blood Urea Nitrogen 30 mg/dL (9-20); Calcium 8.6 mg/dL (8.4-10.2); Carbon Dioxide 25 mmol/L (22-30); Chloride 107 mmol/L (98-107); Estimated CRCL calculation 30 ml/min; Estimated Glomerular Filt Rate 30; Glucose 101 mg/dL (65-110); Potassium 4.3 mmol/L (3.4-5.0); Sodium 138 mmol/L (137-145)
[2024-02-16 06:39] LABS: Creatine Kinase 56 U/L (55-170)
--- NOTE | 2024-02-16 07:18 | P.PNIM_ITS ---
Progress Note: A&P Assessment and Plan (1) Syncope: Code(s): R55 - Syncope and collapse Status: Acute Assessment and Plan: Per chart review, patient was sitting down when he became weak, lightheaded, sweaty, and extremely nauseated. Bystanders reported that he slumped over and seemed to be unresponsive for several minutes. No signs of seizure activity noted. He reports having an increase in the doses of his antihypertensives sometime last week as his blood pressures were running in the 160s over low 100s. He has been eating and drinking as per usual and denies vomiting and diarrhea. - etiology suspicious for vasovagal syncope vs arrhythmia vs other - tele ordered to rule out arrhythmia - orthostatic blood pressures q shift negative - echo: LVEF 60-65% with grade II diastolic dysfunction - CTA head/neck 12/18/2023, no need to repeat at this time: 1. Normal aging brain. 2. No aneurysm or significant intracranial arterial stenosis. 3. 11% stenosis of the proximal right internal carotid artery relative to normal distal artery lumen diameter (NASCET criteria). 4. 7% stenosis of the proximal left internal carotid artery relative to normal distal artery lumen diameter. (2) Acute kidney injury: Code(s): N17.9 - Acute kidney failure, unspecified Status: Acute Assessment and Plan: BUN/Cr 34/2.5 on admission. Baseline appears to be WNL. OLEGARIO with unclear etiology, however possibly related to patients recent change in blood pressures over the last week (he had been running in the 160s to 170s over 120s and is now in the low 100 systolic). States he has been eating and drinking as usual. - BUN/Cr 2.2/30 on am labs - s/p 2 L of normal saline, started on 75 ml/hr fluids - Bladder scan ordered as he has a history of benign prostatic hyperplasia. - Renal ultrasound: normal kidneys without hydronephrosis. Prostamegaly. - Avoid nephrotoxic agents - renally dose all medications - monitor (3) Hypertension: Code(s): I10 - Essential (primary) hypertension Status: Acute Assessment and Plan: Chronic. He reports having an increase in the doses of his antihypertensives sometime last week as his blood pressures were running in the 160s over low 100s. Appears that his amlodipine 5 mg - benazepril 20 mg was increased to amlodipine 10 mg - benazepril 20 mg. - Currently holding antihypertensives - Blood pressures remain stable - Monitor (4) Benign prostatic hyperplasia: Code(s): N40.0 - Benign prostatic hyperplasia without lower urinary tract symptoms Status: Acute Assessment and Plan: Chronic. - Bladder scan ordered as he has a history of benign prostatic hyperplasia and retention could be contributing to OLEGARIO - I/O (5) Tobacco abuse: Code(s): Z72.0 - Tobacco use Status: Acute Assessment and Plan: Encouraged smoking cessation. Declines the need for nicotine patch at this time. Time Spent With Patient Time with patient: 25 - 35 minutes Subjective Date/time seen: 02/16/24 07:18 Interval history: 73-year-old male smoker with history of stroke, carotid artery disease status post left carotid endarterectomy, hypertension, dyslipidemia, and benign prostatic hyperplasia who presented to the hospital for evaluation after syncopal episode. Patient is pleasant lying comfortably in bed. He endorses intermittent dizziness that quickly subsides. He has been up ambulating throughout his room and denies dizziness/ lightheadedness or feeling weak at time. He denies chest pain, shortness a breath, nausea / vomiting, and abdominal pain. Review of Systems Review of Systems: All systems reviewed & are unremarkable except as noted in HPI and below Exam Narrative: AF HR 61 RR 20 SpO2 99 BP 139/84 General: male in no acute respiratory distress who is nontoxic appearing, lying semi recumbent in bed. HEENT: Normocephalic. Atraumatic. No facial asymmetry. Chest: Lungs are clear to auscultation bilaterally. No wheezes or crackles. CV: Heart was regular rate and rhythm. S1/S2. No murmurs, gallops, or rubs. Abd: Abdomen was soft. Nontender. Nondistended. Positive bowel sounds. No organomegaly or masses. Ext: No clubbing, cyanosis, or edema. 2+ DP pulses bilaterally. Neuro: Patient is alert and oriented x4. Speech is clear. Objective Data Vital Signs Vital Signs: Vital Signs - 24 hr 02/15/24 21:35 02/15/24 21:45 02/15/24 21:47 Temperature 97.1 F L 97.1 F L Pulse Rate 63 61 61 Respiratory Rate 14 18 Blood Pressure 106/77 107/79 Pulse Oximetry 100 100 Oxygen Delivery Room Air 02/16/24 02:25 02/16/24 02:27 02/16/24 03:04 Temperature Pulse Rate 77 67 Respiratory Rate 20 17 Blood Pressure 112/80 112/80 Pulse Oximetry 97 97 100 Oxygen Delivery Room Air 02/16/24 03:01 02/16/24 04:05 02/16/24 05:00 Temperature 97.6 F 97.0 F L Pulse Rate 61 81 73 Respiratory Rate 20 20 Blood Pressure 120/76 135/77 Pulse Oximetry 100 100 Oxygen Delivery Intake/Output Intake/Output: Intake & Output 02/13/24 02/14/24 02/15/24 02/16/24 23:59 23:59 23:59 23:59 Intake Total 1000 1300 Balance 1000 1300 Meds/Results Medications: Active Medications Generic Name Dose Route Start Last Admin Trade Name Freq PRN Reason Stop Dose Admin Acetaminophen 650 mg 02/16/24 01:13 Acetaminophen 325 Mg Tablet PO Q4H PRN Mild Pain (1-3) or Fever Atorvastatin Calcium 40 mg 02/16/24 09:00 Atorvastatin 40 Mg Tablet PO DAILY CLAUDETTE Sodium Chloride 1,000 mls @ 75 mls/hr 02/16/24 06:50 Normal Saline Iv IV CONT .[id number] CLAUDETTE Ondansetron HCl 4 mg 02/16/24 01:13 Ondansetron Inj 4 Mg/2 Ml Vial IV PUSH Q4H PRN Nausea Perflutren Lipid Microsphere 0 ml 02/16/24 05:36 Perflutren Lipid Microspheres 1.5 Ml Vial Diluted To 10 Ml Total Volume IV PUSH 02/19/24 05:37 ONCE PRN adequate visualization Protocol Radiology Results: ITS Impressions Chest X-Ray 02/15/24 22:49 IMPRESSION: No acute cardiopulmonary pathology. Labs Labs: Laboratory Results - last 24 hr 02/15/24 02/15/24 02/15/24 21:49 21:50 22:32 WBC 9.1 RBC 3.50 L Hgb 11.6 L Hct 33.9 L MCV 96.9 MCH 33.1 MCHC 34.2 RDW 13.1 Plt Count 247 MPV 10.3 Immature Gran % (Auto) 0.6 H Neut % (Auto) 60.5 Lymph % (Auto) 27.3 [place] % (Auto) 6.3 Eos % (Auto) 4.5 H Baso % (Auto) 0.8 Lymph # (Auto) 2.47 [place] # (Auto) 0.6 Eos # (Auto) 0.4 H Baso # (Auto) 0.1 Abs Immat Gran (auto) 0.05 H Absolute Neuts (auto) 5.5 Absolute Nucleated RBC 0.000 Nucleated RBC % 0.0 Sodium 136 L Potassium 3.5 Chloride 101 Carbon Dioxide 26 Anion Gap 9 BUN 34 H Creatinine 2.50 H Estim Creat Clear Calc 26 Estimated GFR 26 L Glucose 119 H Calcium 9.5 Magnesium 2.0 Total Bilirubin 0.6 AST 25 ALT 15 Alkaline Phosphatase 88 Total Creatine Kinase Troponin I < 0.012 Total Protein 7.0 Albumin 4.3 Urine Color Urine Appearance Urine pH Ur Specific [place] Urine Protein Urine Glucose (UA) Urine Ketones Ur Blood (Man) Urine Nitrate Urine Bilirubin Urine Urobilinogen Add Ur Microanalysis Leukocyte Esterase Rfl Urine RBC Urine WBC Ur Squamous Epith Cells Urine Bacteria Urine Casts Hyaline Casts Urine Mucus Influenza A (RT-PCR) Negative Influenza B (RT-PCR) Negative RSV (RT-PCR) Negative SARS-CoV-2 RNA (RT-PCR) Negative 02/16/24 02/16/24 05:07 05:11 WBC 7.5 RBC 3.29 L Hgb 10.8 L Hct 32.3 L MCV 98.2 MCH 32.8 MCHC 33.4 RDW 13.2 Plt Count 227 MPV 10.9 H Immature Gran % (Auto) 0.5 Neut % (Auto) 57.4 Lymph % (Auto) 27.5 [place] % (Auto) 7.8 Eos % (Auto) 6.1 H Baso % (Auto) 0.7 Lymph # (Auto) 2.07 [place] # (Auto) 0.6 Eos # (Auto) 0.5 H Baso # (Auto) 0.1 Abs Immat Gran (auto) 0.04 H Absolute Neuts (auto) 4.3 Absolute Nucleated RBC 0.000 Nucleated RBC % 0.0 Sodium 138 Potassium 4.3 Chloride 107 Carbon Dioxide 25 Anion Gap 6 BUN 30 H Creatinine 2.20 H Estim Creat Clear Calc 30 Estimated GFR 30 L Glucose 101 Calcium 8.6 Magnesium Total Bilirubin AST ALT Alkaline Phosphatase Total Creatine Kinase 56 Troponin I Total Protein Albumin Urine Color Yellow Urine Appearance Clear Urine pH 6.0 Ur Specific [place] 1.018 Urine Protein 2+ H Urine Glucose (UA) 2+ H Urine Ketones Negative Ur Blood (Man) Negative Urine Nitrate Negative Urine Bilirubin Negative Urine Urobilinogen 0.2 Add Ur Microanalysis Reviewed Leukocyte Esterase Rfl Trace H Urine RBC 0-2 Urine WBC 11-20 H Ur Squamous Epith Cells Occasional Urine Bacteria None seen Urine Casts >20 Hyaline Casts Present Urine Mucus Present Influenza A (RT-PCR) Influenza B (RT-PCR) RSV (RT-PCR) SARS-CoV-2 RNA (RT-PCR) Quality VTE Prophylaxis VTE prophylaxis: mechanical ordered
[2024-02-16] MEDS: ATORVASTATIN 40 MG TABLET PO (09:34)
[2024-02-16] MEDS: SODIUM CHLORIDE 0.9% IV 1,000 ML 75 ML IV CONT ×2 (09:36→16:32)
[2024-02-17 00:04] VITALS: PULSE 65
--- NOTE | 2024-02-17 01:08 | PC.NURSE ---
Daylight Savings Time For Daylight Savings Time Ending in the Fall - Clocks are moved back. For Daylight Savings Time Beginning in the Spring - Clocks are moved ahead. For [facility], the time of change occurs at 0200 hrs. Time is taken from the outside food server. This entry on the patient's chart recognizes the change in time reflected during documentation. Example: 2 entries for vital signs may be charted for 0200 hrs.
[2024-02-17 04:01] VITALS: PULSE 64
[2024-02-17 05:54] LABS: Basophils Absolute Auto 0.1 K/mm3 (0.0-0.1); Basophils Percent Auto 0.6 % (0.2-1.2); Eosinophils Absolute Auto 0.5 K/mm3 (0-0.3); Eosinophils Percent Auto 6.6 % (0-4.4); Hematocrit 30.1 % (42.0-52.0); Hemoglobin 10.4 g/dL (14.0-18.0); Immature Granulocyte Absolute 0.02 K/mm3 (0.00-0.031); Immature Granulocyte Percent A 0.3 % (0-0.5); Lymphocytes Absolute Auto 1.93 K/mm3 (0.9-3.2); Lymphocytes Percent Auto 24.6 % (18.3-44.2); Mean Corpuscular HGB Conc 34.6 g/dl (32-36); Mean Corpuscular Hemoglobin 33.5 pg (26-34); Mean Corpuscular Volume 97.1 fl (80-100); Mean Platelet Volume 10.4 fl (7.4-10.4); Monocytes Absolute Auto 0.6 K/mm3 (0.1-0.6); Monocytes Percent Auto 7.8 % (2.6-8.5); Neutrophils Absolute Auto 4.7 K/mm3 (1.3-6.7); Neutrophils Percent Auto 60.1 % (45.5-73.1); Platelet Count Result 211 k/mm3 (150-375); White Blood Count 7.8 K/mm3 (4.5-10.0)
[2024-02-17 06:00] VITALS: BP 140/83; PULSE 70; RESP 18; TEMP 36.9; O2SAT 99
[2024-02-17 06:17] LABS: Alanine Aminotransferase 12 U/L (6-50); Albumin Level 3.3 g/dL (3.5-5.1); Alkaline Phosphatase 79 U/L (38-126); Anion Gap 6 mmol/L (4-12); Aspartate Amino Transferase 18 U/L (17-59); Bilirubin,Total 0.8 mg/dL (0.2-1.3); Blood Urea Nitrogen 21 mg/dL (9-20); Calcium 8.5 mg/dL (8.4-10.2); Carbon Dioxide 23 mmol/L (22-30); Chloride 108 mmol/L (98-107); Estimated CRCL calculation 46 ml/min; Estimated Glomerular Filt Rate 50; Glucose 89 mg/dL (65-110); Potassium 3.9 mmol/L (3.4-5.0); Sodium 137 mmol/L (137-145)
[2024-02-17 08:00] VITALS: PULSE 68
[2024-02-17 08:30] VITALS: BP 144/91; BP 145/92; BP 158/96; PULSE 66; PULSE 69; PULSE 71
[2024-02-17 08:49] VITALS: O2SAT 97
[2024-02-17] MEDS: ATORVASTATIN 40 MG TABLET PO (08:53)
--- NOTE | 2024-02-17 15:47 | P.DS_ITS ---
DS: Admitting Diagnosis Discharge Date 02/17/24 Admitting Diagnosis syncope OLEGARIO hypertension BPH tobacco abuse DS: Discharge Diagnosis Discharge Diagnosis (1) Syncope: Code(s): R55 - Syncope and collapse Status: Acute (2) Acute kidney injury: Code(s): N17.9 - Acute kidney failure, unspecified Status: Acute (3) Hypertension: Code(s): I10 - Essential (primary) hypertension Status: Acute (4) Benign prostatic hyperplasia: Code(s): N40.0 - Benign prostatic hyperplasia without lower urinary tract symptoms Status: Acute (5) Tobacco abuse: Code(s): Z72.0 - Tobacco use Status: Acute DS: Summary Hospital Course Reason for hospitalization: syncope OLEGARIO hypertension BPH tobacco abuse Hospital Course: 73-year-old male smoker with history of stroke, carotid artery disease status post left carotid endarterectomy, hypertension, dyslipidemia, and benign prosta tic hyperplasia who presented to the hospital for evaluation after syncopal episode. Per chart review, patient was sitting down when he became weak, lightheaded, sweaty, and extremely nauseated prior to his syncopal episode. No signs of seizure activity noted. He reports having an increase in the doses of his antihypertensives sometime last week as his blood pressures were running in the 160s over low 100s. He notes that he had decreased fluid intake. On admission patient had an OLEGARIO with unclear etiology, however possibly related to patients recent change in blood pressures over the last week. He received 2 L of normal saline and was started on 75 ml/hr fluids. Renal ultrasound showed normal kidneys without hydronephrosis. OLEGARIO resolved during admission. Patient orthostatic blood pressures were negative. Tele showed no signs of arrhythmias. CTA head/neck from 12/17 was unremarkable. Echo showed LVEF 60-65% with grade II diastolic dysfunction. During admission patients antihypertensives were held. During admission patients blood pressures were slightly hypertensive. At time of discharge patient was started back on amlodipine 5 mg - benazepril 20 mg. Had in-depth conversation with patient about the importance of monitoring his blood pressure given that he has had medications decreased. Also encouraged good oral intake. Patient states understanding and is to follow-up with his pr imary care in 1 week. At time of discharge patient was ambulating throughout his room. He denied dizziness /lightheadedness /weakness, chest pain, shortness a breath, palpitations, nausea/vomiting, and abdominal pain. Patient discharged home in a stable condition. He is to follow up with his primary care provider in 1 week. Status at Discharge Functional status at discharge: independent ambulation Time Spent with Patient Time attestation: Total time spent providing and/or coordinating discharge services: Time spent: Greater than 30 minutes Exam Narrative: AF HR 71 RR 18 SpO2 97 BP 145/92 General: male in no acute respiratory distress who is nontoxic appearing, lying semi recumbent in bed. HEENT: Normocephalic. Atraumatic. No facial asymmetry. Chest: Lungs are clear to auscultation bilaterally. No wheezes or crackles. CV: Heart was regular rate and rhythm. S1/S2. No murmurs, gallops, or rubs. Abd: Abdomen was soft. Nontender. Nondistended. Positive bowel sounds. No organomegaly or masses. Ext: No clubbing, cyanosis, or edema. 2+ DP pulses bilaterally. Neuro: Patient is alert and oriented x4. Speech is clear. DS: Data Data Completed and Pending Completed studies during hospitalization: renal ultrasound chest x-ray Labs on day of discharge: Labs from last 24 hours 02/17/24 05:34 WBC 7.8 RBC 3.10 L Hgb 10.4 L Hct 30.1 L MCV 97.1 MCH 33.5 MCHC 34.6 RDW 13.0 Plt Count 211 MPV 10.4 Immature Gran % (Auto) 0.3 Neut % (Auto) 60.1 Lymph % (Auto) 24.6 [place] % (Auto) 7.8 Eos % (Auto) 6.6 H Baso % (Auto) 0.6 Lymph # (Auto) 1.93 [place] # (Auto) 0.6 Eos # (Auto) 0.5 H Baso # (Auto) 0.1 Abs Immat Gran (auto) 0.02 Absolute Neuts (auto) 4.7 Absolute Nucleated RBC 0.000 Nucleated RBC % 0.0 Sodium 137 Potassium 3.9 Chloride 108 H Carbon Dioxide 23 Anion Gap 6 BUN 21 H Creatinine 1.40 H Estim Creat Clear Calc 46 Estimated GFR 50 L Glucose 89 Calcium 8.5 Total Bilirubin 0.8 AST 18 ALT 12 Alkaline Phosphatase 79 Total Protein 6.0 L Albumin 3.3 L Discharge Plan Discharge Attending physician on discharge: Neri Mary Discharging Clinician: Tracy Bronson Anticipated Discharge Date/Time: 02/17/24 11:11 Patient Disposition: Home, Self-Care Activity: as tolerated Diet: as tolerated and heart healthy Discharge Instructions: Discharge disposition: Patient admitted to the hospital for a syncopal episode likely related to dehydration and blood pressure medication change Change in medication Amlodipine 10 mg- benazepril 20 mg has been decreased back to amlodipine 5 mg - benazepril 20 mg daily Follow up with your primary care provider about this medication change Monitor blood pressures Take caution while standing, rising, or moving Change positions slowly taking a break between each position change If you standing feel dizzy sat back down and take a break Patient had a slight kidney injury on admission likely related to dehydration You received IV fluids during your admission and this has since resolved Eat well balanced meals and stay hydrated Keep active to remain strong Trend urine output Encouraged to continue with yearly vaccinations Return to the emergency department if he developed sudden shortness of breath, chest pain, nausea, vomiting, upset stomach or intractable diarrhea Return to the emergency department if you develop fever greater than 101.5 Follow-up with the primary care physician within 1 week Thank you for [facility] for your healthcare needs Patient Instructions: Amlodipine/Benazepril (By mouth), Dehydration (DC), Acute Kidney Injury (DC), Hypotension (DC) Patient Language: Setswana Stand Alone Forms: General Discharge Information Follow-up/Referrals: Fabiano Mosley MD [Primary Care Provider] - 1 Week Discharge Medications: New amlodipine-benazepril 5-20 mg capsule 1 cap PO DAILY Qty: 30 0RF Continued tadalafil 5 mg tablet 5 mg PO DAILY Qty: 90 0RF atorvastatin 40 mg tablet 40 mg PO DAILY Qty: 30 0RF cyclobenzaprine 5 mg tablet 5 mg PO TID PRN (Reason: muscle spasm) Qty: 90 0RF Discontinued amlodipine-benazepril 10-20 mg capsule 1 cap PO DAILY Qty: 90 0RF amoxicillin-pot clavulanate 875-125 mg tablet 1 tablet PO BID Qty: 10 0RF Date of admission: 02/16/24 01:13 Primary Care Provider: Fabiano Mosley Admitting Provider: Neri Mary Attending physician on admission: Tracy Bronson Condition: Stable Hospitalist MIPS Heart Failure (Exclusion) Patient has history of Heart Transplant or Left Ventricular Assistive Device?: No IF YES, STOP HERE Heart Failure (Qualifier) Patient has current or prior documentation of LVEF less than or equal to 40%, or mod/servere depressed LVSF?: No IF NO, STOP HERE
== END 2024-02-17 12:00 | disposition home or self-care (01) ==
LOC: ANHED 23:08 → ANH2MED 02-16 02:22
PROVIDERS: Physician Assistant; Admitting Provider Internal Medicine; Emergency Provider Emergency Medicine; PCP Family Medicine; Visit Provider Student in an Organized Health Care Education/Training Program
DX: R55 Syncope and collapse (principal); N17.9 Acute kidney failure, unspecified; I10 Essential (primary) hypertension; N40.0 Benign prostatic hyperplasia without lower urinary tract symptoms; E78.5 Hyperlipidemia, unspecified; F17.210 Nicotine dependence, cigarettes, uncomplicated; Z20.822 Contact with and (suspected) exposure to COVID-19; Z79.899 Other long term (current) drug therapy; Z86.0100 Personal history of colon polyps, unspecified; Z86.73 Personal history of transient ischemic attack (TIA), and cerebral infarction without residual deficits; Z86.79 Personal history of other diseases of the circulatory system; Z98.890 Other specified postprocedural states
CPT/HCPCS: 36415; 71046; 76775; 80048; 80053; 81001; 82550; 83735; 84484; 85025; 87086; 87637; 93005; 93306; 96360; 96361; 99285; A9270; G0378; J7030

== ENCOUNTER 2024-03-05 15:57 | Outpatient (CLI) | payer MEDICARE, SELFPAY ==
[2024-03-05 18:13] LABS: Alanine Aminotransferase 14 U/L (6-50); Albumin Level 4.4 g/dL (3.5-5.1); Alkaline Phosphatase 77 U/L (38-126); Anion Gap 5 mmol/L (4-12); Aspartate Amino Transferase 25 U/L (17-59); Bilirubin,Total 0.7 mg/dL (0.2-1.3); Blood Urea Nitrogen 42 mg/dL (9-20); Calcium 9.7 mg/dL (8.4-10.2); Carbon Dioxide 27 mmol/L (22-30); Chloride 104 mmol/L (98-107); Cholesterol 208 mg/dL (0-200); Estimated Glomerular Filt Rate 37; Glucose 92 mg/dL (65-110); HDL Direct 47 mg/dL; Potassium 4.4 mmol/L (3.4-5.0); Sodium 136 mmol/L (137-145); Triglycerides 79 mg/dL (<150)
[2024-03-05 18:24] LABS: LDL Cholesterol Direct 120 mg/dL
== END 2024-03-05 15:58 | disposition home or self-care (01) ==
PROVIDERS: PCP Family Medicine; Visit Provider Internal Medicine Cardiovascular Disease
DX: E78.5 Hyperlipidemia, unspecified (principal)
CPT/HCPCS: 36415; 80053; 80061

== ENCOUNTER 2024-03-20 11:07 | Outpatient (CLI) | payer MEDICARE, SELFPAY ==
[2024-03-20 12:04] LABS: Cholesterol 189 mg/dL (0-200); HDL Direct 40 mg/dL; Triglycerides 94 mg/dL (<150)
[2024-03-20 12:15] LABS: LDL Cholesterol Direct 110 mg/dL
== END 2024-03-20 11:08 | disposition home or self-care (01) ==
PROVIDERS: PCP Family Medicine; Visit Provider Psychiatry & Neurology Neurology
DX: E78.5 Hyperlipidemia, unspecified (principal)
CPT/HCPCS: 36415; 80061

== ENCOUNTER 2024-04-03 08:49 | Outpatient (CLI) | payer MEDICARE, SELFPAY ==
--- NOTE | 2024-04-07 09:29 | WPDNEUROLOGY ---
Neurology EEG Report General Information Date of Study: 04/03/24 TEST EEG DIAGNOSIS personal history of physical injury or trauma. CONDITION OF RECORDING Awake, drowsy and asleep. EEG NUMBER [id number] CLINICAL HISTORY Patient reports he had a few TIA is few months ago and had surgery on his carotid arteries and since then is having extreme migraines every night when he goes to bed. EEG DESCRIPTION Basic resting occipital frequency consists of low-voltage 11 to 13 hertz per 2nd alpha admixed with low-voltage 15 to 18 hertz per 2nd beta activity. Good franny posterior gradient is noted throughout the tracing. Low-voltage beta activity seen admixed with waxing and waning alpha activity during drowsiness. Bilateral symmetrical sleep activity is noted with symmetrical sleep spindles during sleep. Hyperventilation not done. Photic stimulation produced normal and symmetrical drive. Non paroxysmal. Nonfocal. Nonlateralizing. IMPRESSION Normal record.
== END 2024-04-03 08:50 | disposition home or self-care (01) ==
PROVIDERS: PCP Family Medicine; Visit Provider Psychiatry & Neurology Neurology
DX: G43.909 Migraine, unspecified, not intractable, without status migrainosus (principal); Z87.828 Personal history of other (healed) physical injury and trauma
CPT/HCPCS: 95816

== ENCOUNTER 2024-04-05 08:31 | Outpatient (CLI) | payer MEDICARE, SELFPAY ==
--- NOTE | ~2024-04-05 | MR_ITS ---
EXAMINATION: MR brain/brain stem wo con DATE: 04/05/2024 09:20 INDICATION: Cerebral infarction, unspecified. TECHNIQUE: Magnetic resonance imaging (MRI) of the brain and brainstem was performed without intraven ous contrast. COMPARISON: Brain MRI 09/05/2021, head CT 12/18/2023 FINDINGS: There are scattered areas of nonspecific increased T2-weighted signal intensity in the cere bral white matter, which is within normal limits for the patient's age. There is a small old infarct in left frontoparietal region. There is no intracranial hemorrhage, acute infarction, or abnormal int racranial mass lesion. The ventricles are normal in size. There is mild mucosal thickening in the par anasal sinuses. The orbits are normal. There is a trace left mastoid effusion. IMPRESSION: 1. Small old infarct in left frontoparietal region. Reviewed, dictated and finalized at location A. ETIC SURGEON
--- OUTSIDE RECORDS SUMMARY | 2024-04-12 08:46 | XMS_ITS | Clinical Summary ---
Author Organization [facility] Address [address] [place] [address]. [place] [address] Care Team Providers Care Night Custodian Name Role Phone Derrick Herrera MD Unavailable [phone] Zeina Baptiste DO Primary Care Provider [phone] Allergies No known active allergies Medications ALPRAZolam 1 MG tablet 02/05/2019 Active escitalopram (LEXAPRO) 20 MG tabletIndication s:Anxiety Take 1 tablet (20 mg total) by mouth daily. 30 tablet 1 09/07/2019 Active Active Problems Problem Noted Date Diagnosed Date Shortness of breath 12/12/2018 Heart palpitations 12/10/2018 Hypotension, unspecified hypotension type 2018 Chronic prostatitis 12/28/2017 Fibrosis, lung ([facility]) 11/27/2017 Lung nodule, solitary 11/05/2017 Elevated PSA 10/25/2017 Low serum vitamin D 10/25/2017 Vitamin D deficiency 10/25/2017 Arcus senilis of both eyes 10/11/2017 BPH (benign prostatic hyperplasia) 10/11/2017 Erectile dysfunction 10/11/2017 Fatigue 10/11/2017 Hearing loss, bilateral 10/11/2017 Dysuria 10/11/2017 Heart murmur Syncope Family History Medical History Relation Comments Valve Disease Brother 1 Valve Disease Father Heart Attack Paternal Grandfather Relation Status Comments Brother 1 Alive Brother 2 Alive Father Maternal Grandfather Maternal Grandmother Other Mother Paternal Grandfather Paternal Grandmother Sister 1 Alive Sister 2 Social History Tobacco Use Types Packs/Day Years Used Date Smoking Tobacco: Every Day Cigarettes 0 Smokeless Tobacco: Never Alcohol Use Standard Drinks/Week Comments Yes 0 (1 standard drink = 0.6 oz pur e alcohol) 24 beers / week AUDIT-C Answer Date Recorded Frequency of Alcohol Consumption Never 01/28/2018 Average Number of Drinks Not on file 018 Frequency of Binge Drinking Not on file 01/14 Sex and Gender Information Value Date Recorded Sex Assigned at Not on file Legal Sex Male 7:19 PM CDT Gender Identity Not on file Sexual Orientation Not on file Occupation Industry Job Start Date Job End Date Not on file Not on file Not on file Not on file Last Filed Vital Signs Vital Sign Reading Time Taken Comments Blood Pressure 122/82 01/16/2019 12:22 PM CDT Pulse 73 01/16/2019 12:22 PM CDT Temperature 36.6 ??C (97.8 ??F) 11/29/2018 10:12 AM C DT Respiratory Rate 16 10/14/2018 1:01 PM CDT Oxygen Saturation 93% 01/16/2019 12:22 PM CDT Inhaled Oxygen Concentration - - Weight 70.3 kg (155 lb) 01/16/2019 12:22 PM CDT Height 185.4 cm (6' 1 ) 01/16/2019 12:22 PM CDT Body Mass Index 20.45 01/16/2019 12:22 PM CDT Plan of Treatment Health Maintenance Due Date Last Done Comments Pneumococcal Vaccine: 65+ Years (1 of 2 - PCV) 1957 DTaP, Tdap and Td Vaccines ( 1 - Tdap) 1970 Zoster Vaccines (1 of 2) 2001 RSV Immunization or 60+ Years (1 - Risk 60-74 years 1-dose series) 2011 Annual Medicare Wellness Visit 2016 COVID-19 Vaccine ( - 2023-2 5 season) 2023 Influenza Adult (#1) 2024 Colorectal Cancer Screening Colonoscopy (10 Years) 02/01/2028 01/31/2018 Hepatitis C Completed 10/18/2017, 10/18/2017 Meningococcal Vaccine Aged Out No elena umer eligible based on patient's age to complete this topic RSV Immunizations Under 20 Months Aged Out No longer eligible b ased on patient's age to complete this topic Procedures Procedure Name Priority Date/Time Associated Diagnosis Comments COLONOSCOPY GENERIC (SCAN ORDER) Routine 01/31/2018 HEPATITIS C ANTIBODY Routine 10/18/2017 1:14 PM CDT from Last 3 Months or Most Recently Relevant to Health Maintenance Results * COLONOSCOPY (01/31/2018) us Documents Scanned SCANNING Final Result SMITHA DE LEÓN * HEPATITIS C ANTIBODY (10/18/2017 1:14 PM CDT) HEPATITIS C AB NON-REACTI VE NR [facility] TO EPIC CONVERSION 10/18/2017 1:14 PM CDT 10/18/2017 1:14 PM CDT Narrative [facility] TO EPIC CONVERSION - 10/19/2017 8:01 AM CDT Result Communication: No patient communication needed at this time us Fabiano Mosley MD LABORATORY Final Result Performing Organization Address City/State/[facility] Co de Phone Number [facility] TO EPIC CONVERSION from Last 3 Months or Most Recently Relevant to Health Maintenance Insurance [facility] INSURANCE MEDICARE MEDICARE [facility] INSURANCE Advance Directives Documents on File Type Date Recorded Patient Hand I Thermal Cutter Expl anation Advance Directives and Living Will 01/04/2018 2:41 PM ADVANCE DIRECTIVE 10/11/17 Advance Directives and Living Will 10/11/2017 SADVANCE DIRECTIVES Care Teams Night Custodian Relationship Specialty Start Date End Date Zeina Baptiste DO [address] [place] [address] PCP - General FAMILY PRACTICE 02/22/21 Derrick Herrera MD [facility] [address] [place] [address] EP [employer]ating Front Desk Clerk CARDIOVASCULAR DISEASE 12/11/18
--- OUTSIDE RECORDS SUMMARY | 2024-04-12 08:46 | XMS_ITS | Continuity of Care Document ---
Author Organization [facility] Address [address] [place] [id number] Encounter [facility] Financial Number [id number] Date(s): 10/28/20 - 10/28/[address] [id number] Discharge Disposition: Home or Self Care Attending Physician: Zeferino Davidson MD Referring Physician: Zeferino Davidson MD
--- OUTSIDE RECORDS SUMMARY | 2024-04-12 08:46 | XMS_ITS | Encounter Summary ---
Author Organization [facility] Address [address] [place] [address]. [place], [place] [address] [place] [address] Care Team Providers Care Machine I Cutter Name Role Phone Fabiano Mosley MD Primary Care Provider [phone] Derrick Herrera MD Unavailable [phone] Reason for Visit * Reason Comments Palpitations 1 mo follow up Syncope Encounter Details Date Type Department Care Team (Late st Contact Info) Description 01/16/2019 12:15 PM CDT Office Visit [facility] at [facility], [facility] [address] [place] [address] Derrick Herrera MD [facility]. [facility] [address] [place] [address] Palpitations (1 mo follow up); Syncope Social History Tobacco Use Types Packs/Day Years [...] file Not on file Not on file documented as of this encounter Last Filed Vital Signs Vital Sign Reading Time Taken Comments Blood Pressure 122/82 01/16/2019 12:22 PM CDT Pulse 73 01/16/2019 12:22 PM CDT Temperature - - Respiratory Rate - - Oxygen Saturation 93% 01/16/2019 12:22 PM CDT Inhaled Oxygen Concentration - - Weight 70.3 kg (155 lb) 01/16/2019 12:22 PM CDT Height 185.4 cm (6' 1 ) 01/16/2019 12:22 PM CDT Body Mass Index 20.45 01/16/2019 12:22 PM CDT documented in this encounter Patient Instructions * Patient Instructions* Luisa Brar - 01/16/2019 12:15 PM CDT Images from the original note were not included. Patient Education Patient Education Arrhythmias About this topic Your heart has an electrical system that controls each heartbeat and signals your heart to pump blood. The signal starts in the top chambers of the heart and moves to the bottom chambers. The signal repeats with each heartbeat. The heart has 2 upper chambers called atria and 2 lower chambers calledventricles. These chambers beat in a coordinated way when the heart is healthy. This lets the heartpump blood effectively to the rest of the body. You have an arrhythmia if the electrical signals do not flow as they should, go the wrong way, or are blocked. When this happens, your heart beat is not normal and the heart does not pump blood out to the body as well as it should. Treatment of abnormal heartbeats depends on the cause. Choices may include drugs or lifestyle changes. Sometimes, you may need surgery to place a pacemaker or other devices that keep the heart beat normal. Other times, you may not need any treatment. What are the causes? ?? Heart attack or health problem that damages or changes the heart???s electrical system ?? Health problems like high blood pressure or diabetes ?? Recent heart surgery ?? Smoking, caffeine, too much alcohol use ?? Some prescription and cweg-agz-tfybzdf drugs, as well as street drugs such as cocaine and amphetamines ?? Stress ?? Electrical shock ?? defects ?? Your body's natural chemicals like thyroid hormone, potassium, or calcium are out of balance. This may happen if you have an illness like kidney disease. Too much throwing up or loose stools can also cause this problem. So can some drugs you take. What can make this more likely to happen? Older adults are more likely to have arrhythmias. You are more at risk if you have heart problems like heart disease or were born with a heart defect. Health problems like diabetes, sleep apnea, or high blood pressure also raise your risk for an arrhythmia. So does using street drugs or having surgery on your heart. What are the main signs? ?? A heartbeat that is too fast, called tachycardia. ?? A heartbeat that is too slow, called bradycardia. ?? Feeling like your heart skips a beat or flutters ?? Feeling weak, dizzy, lightheaded, or fainting ?? Chest pain ?? Short of breath ?? Very bad sweating ?? Feeling anxious ?? Not able to lie flat ?? Swelling in the arms or legs ?? Some people have no signs How does the doctor diagnose this health problem? Your doctor will do an exam and ask about your history. The doctor may listen for a heart murmur orlook for signs of some other health problem. The doctor may order: ?? Lab tests ?? Chest x-ray ?? Echocardiogram ?? Electrocardiogram (EKG) ?? A Holter monitor to check your heart's signals ?? Stress test ?? Electrophysiology studies ?? Tilt table test ?? Cardiac cath How does the doctor treat this health problem? Your doctor will treat your arrhythmia based on what is causing it. You may need to take drugs to make your heart beat normal. If drugs do not help the problem, your doctor may need to do a procedureor surgery like: ?? Pacemaker ?? Cardioversion ?? Automatic implantable cardioverter defibrillator (AICD) ?? Cardiac cath with ablation ?? Maze surgery ?? Bypass grafting surgery ?? Vagal maneuvers What lifestyle changes are needed? ?? Eat a heart healthy diet of: ? More fruits and vegetables ? Lean meats and poultry ? Whole grains (breads and cereals) ?? Use canola oil and olive oil when cooking. ?? Avoid foods high in fats and cholesterol. ?? Stop smoking. ?? Limit or stop caffeine. ?? Drink lots of fluids. What drugs may be needed? The doctor may order drugs to: ?? Keep your heartbeat normal and steady ?? Prevent or treat blood clots ?? Treat the condition that causes arrhythmia ?? Control the rate of your heartbeat What problems could happen? ?? Heart failure ?? Chest pain ?? Heart attack ?? Stroke ?? Damage to the heart, brain, or other organs ?? Sudden What can be done to prevent this health problem? ?? Keep a healthy weight. If you are overweight, lose weight. ?? Exercise more often. This will improve your body's blood flow. ?? Limit beer, wine, and mixed drinks (alcohol). ?? Avoid stress. ?? Stay away from drugs that make the heartbeat faster, like those used for colds and cough. ?? Avoid caffeine or energy drinks. ?? Avoid street drugs like cocaine or amphetamines. When do I need to call the doctor? Activate the emergency medical system right away if you have signs of a heart attack or stroke. Call 911 in the [place] or [place]. The sooner treatment begins, the better your chances for recovery. Call for emergency help right away if you have: ?? Signs of heart attack: ? Chest pain ? Trouble breathing ? Fast heartbeat ? Feeling dizzy ?? Signs of stroke: ? Sudden numbness or weakness of the face, arm, or leg, especially on one side of the body ? Sudden confusion, trouble speaking or understanding ? Sudden trouble seeing in one or both eyes ? Sudden trouble walking, dizziness, loss of balance or coordination ? Sudden severe headache with no known cause Call your doctor if you have: ?? Problems with breathing. These include change in shortness of breath, wheezing, need to sleep sitting up to be able to breathe, or other breathing troubles. ?? Blue or powers skin color ?? Very bad sweating ?? Pain, pressure, tightness, or heaviness in your chest, arm, neck, or jaw ?? Very fast heartbeat ?? Trouble breathing with exercise Where can I learn more? [place] [employer] http://www.heart.org/HEARTORG/Conditions/Arrhythmia/AboutArrhythmia/About-Arrhyt ia_[facility]_002010_Article.jsp [employer] http://kidshealth.org/teen/diseases_conditions/heart/arrhythmias.html Last Reviewed Date 2017-10-01 Consumer Information Use and Disclaimer This information is not specific medical advice and does not replace information you receive from your health care provider. This is only a brief summary of general information. It does NOT include all information about conditions, illnesses, injuries, tests, procedures, treatments, therapies, discharge instructions or life-style choices that may apply to you. You must talk with your health care provider for complete information about your health and treatment options. This information should not be used to decide whether or not to accept your health care provider???s advice, instructions or recommendations. Only your health care provider has the knowledge and training to provide advice that is right for you. Copyright Copyright ?? 2019 [employer]. and its affiliates and/or licensors. All rights reserved. documented in this encounter Progress Notes * Derrick Herrera MD - 01/16/2019 12:15 PM CDT Images from the original note were not included. [place], [place] [address] Cardiac Electrophysiology Outpatient Progress Note Patient name: Cruz Carreon Primary Care Provider: Fabiano Mosley MD Chief Complaint: Follow up History of Present Illness Cruz Carreon is a 68-year-old male with a history of BPH, tobacco use, Referred initiallyfor consultation regarding evaluation of palpitations and syncope. Following evaluation he went forfurther cardiac testing. Recent evaluation including 24-hour Holter monitor and stress testing was unrevealing for any concern of arrhythmia or ischemic heart disease. He has been doing well since his visit with me last month. He has had no further syncopal episodes. He has felt that the symptoms regarding fatigue have improved after discontinuation of his BPH meds. Assessment and Plan Mr. Carreon is a 68-year-old male here today for follow up of PVCs and syncope. Palpitations: Unclear etiology. No significant arrhythmia noted on recent MCT. He is doing well now. Syncope:Suspect related to alpha estefania use as patient suggest. He is doing well now. No further episodes. No evidence of significant bradycardia on monitor. -If recurrent episode would plan loop recorder. - For now can monitor as patient prefers Chest pain: Stress unrevealing for ischemia. No further evaluation needed. History Review of Systems Constitutional: Positive for malaise/fatigue. HENT: Negative. Eyes: Negative. Respiratory: Negative. Cardiovascular: Negative. Gastrointestinal: Negative. Genitourinary: Positive for dysuria. Skin: Negative. Neurological: Positive for weakness. Endo/Heme/Allergies: Negative. Current Problems: Patient Active Problem List Diagnosis ??? Arcus senilis of both eyes ??? BPH (benign prostatic hyperplasia) ??? Chronic prostatitis ??? Elevated PSA ??? Erectile dysfunction ??? Fatigue ??? Hearing loss, bilateral ??? Low serum vitamin D ??? Fibrosis, lung (CMS/HCC) ??? Vitamin D deficiency ??? Dysuria ??? Lung nodule, solitary ??? Heart palpitations ??? Hypotension, unspecified hypotension type ??? Shortness of breath ??? Heart murmur ??? Syncope Past Medical History: Past Medical History: Diagnosis Date ??? Arthritis ??? Heart murmur ??? Heart palpitations 12/10/2018 ??? Hypotension, unspecified hypotension type 12/10/2018 ??? Prostatitis ??? Shortness of breath 12/12/2018 ??? Syncope Past Surgical History: Past Surgical History: Procedure Laterality Date ??? GI PROSTATE BIOPSY Social History: Social History Tobacco Use ??? Smoking status: Current Every Day Smoker Packs/day: 0.50 Years: 0.00 Pack years: 0.00 Types: Cigarettes ??? Smokeless tobacco: Never Used Substance Use Topics ??? Alcohol use: Yes Frequency: Never Comment: 24 beers / week ??? Drug use: Yes Types: Marijuana Comment: 3 a week Family History: Family History Problem Relation Name Age of Onset ??? Valve Disease Father ??? Valve Disease Brother ??? Heart Attack Paternal Grandfather Allergies: No Known Allergies Current Medications: Patient's Medications New Prescriptions No medications on file Previous Medications No medications on file Modified Medications No medications on file Discontinued Medications ALFUZOSIN ER 10 MG 24 HR TABLET ESCITALOPRAM (LEXAPRO) 20 MG TABLET Take 1 tablet (20 mg total) by mouth daily. FINASTERIDE 5 MG TABLET Take 1 tablet (5 mg total) by mouth daily. TADALAFIL 5 MG TABLET CHEW AND SWALLOW ONE GUMMY ONCE DAILY. TAMSULOSIN 0.4 MG CAP Take 1 capsule (0.4 mg total) by mouth daily. Physical Exam Filed Vitals: 01/16/19 1222 BP: 122/82 Pulse: 73 SpO2: 93% Weight: 70.3 kg (155 lb) Height: 6' 1 (1.854 m) Physical Exam: In general, Mr. Carreon laying on the examination table in no acute distress. Appears stated age. Mucous membranes moist. No oropharyngeal exudates. Sclera anicteric. Neck is supple. Normal carotid upstroke. No carotid bruits. JVP is not elevated at 45 degrees. Cardiac exam reveals a regular rate and rhythm. Normal S1 and S2 without murmurs, rubs, gallops. Radial pulses are 2+. Lungs clear to auscultation bilaterally without wheezes, rales, or rhonchi. Abdomen is soft, nontender, and non distended with normoactive bowel sounds. There is no guarding or rebound tenderness. No abdominal bruit.There are no skin lesions or significant ecchymosis. No lower extremity edema. His mood is normal witha normal affect and he is alert and oriented x 3. Relevant Data Reviewed: Labs: Lab Results Component Value Date/Time NA 139 11/29/2018 12:05 PM K 4.5 11/29/2018 12:05 PM CR 1.02 11/29/2018 12:05 PM AST 12 (L) 11/29/2018 12:05 PM ALT 22 11/29/2018 12:05 PM HGB 14.8 11/29/2018 12:05 PM HCT 44.4 11/29/2018 12:05 PM PLT 201 11/29/2018 12:05 PM WBC 7.9 11/29/2018 12:05 PM TSH 0.758 11/29/2018 12:05 PM Echo: EKG: NSR Holter: No arrhythmias. Occasional RBBB Other Imagin01/13/19: Nuclear stress: 1. Excellent study quality. No motion correction was applied to images. No attenuation is noted. Prone imaging was performed. 2. Normal myocardial perfusion SPECT imaging. 3. Normal wall motion with an ejection fraction of 66%. 4. Stress test with myocardial perfusion imaging shows overall low risk for a cardiac event. Derrick Herrera MD [facility] Cardiac Electrophysiology ; ext. [phone] Pager: [phone] 01/16/2019 1:17 PM [employer] documented in this encounter Plan of Treatment Not on file documented as of this encounter Visit Diagnoses Diagnosis Palpitations- Primary Syncope due to orthostatic hypotension Syncope and collapse documented in this encounter Care Teams Machine I Cutter Relationship Specialty Start Date End Date Fabiano Mosley MD PCP - General FAMILY PRACTICE 11/01/17 02/21/21 Derrick Herrera MD [address] [address] EP Front Office Administrator CARDIOVASCULAR DISEASE 12/11/18 documented as of this encounter
--- OUTSIDE RECORDS SUMMARY | 2024-04-12 08:46 | XMS_ITS | Encounter Summary ---
Author Organization [facility] Address [address] [place] [address]. [place], [place] [address] [place] [address] Care Team Providers Care Stamp Classifier Name Role Phone Fabiano Mosley MD Primary Care Provider [phone] Derrick Herrera MD Unavailable [phone] Reason for Visit * Reason Comments Colonoscopy Report (SCAN) Encounter Details Date Type Department Care Team ([facility] st Contact Info) Description 07/24/2019 Scan [facility] Family Medicine [address] [address] [place] [address] Colonoscopy Report (SCAN) Social History Tobacco Use Types Packs/Day Years [...] on file documented as of this encounter Plan of Treatment Not on file documented as of this encounter Visit Diagnoses Not on filedocumented in this encounter Care Teams Stamp Classifier Relationship Specialty Start Date End Date Fabiano Mosley MD PCP - General FAMILY PRACTICE 11/01/17 02/21/21 Derrick Herrera MD [facility]. [address] [address] EP Poultry Service Technician CARDIOVASCULAR DISEASE 12/11/18 documented as of this encounter
--- OUTSIDE RECORDS SUMMARY | 2024-04-12 08:46 | XMS_ITS | Encounter Summary ---
Author Organization [facility] Address [address] [place] [address]. [place], [place] [address] [place] [address] Care Team Providers Care Security And Compliance Analyst Name Role Phone Fabiano Mosley MD Primary Care Provider [phone] Derrick Herrera MD Unavailable [phone] Reason for Visit * Reason Onset Date Comments Question 01/23/2019 Encounter Details Date Type Department Care Team (Late st Contact Info) Description 01/23/2019 Telephone [facility] Family Medicine [address] [address] Fabiano Mosley MD [address] [place] [address] Question Social History Tobacco Use Types Packs/Day Years [...] on file documented as of this encounter Progress Notes * Niurka Bermudez MA - 01/27/2019 5:01 PM CDT HE IS GOING TO GET A IN HOME MOLD TESTING KIT TO SEE IF HE HAS MOLD IN HIS HOME THAT HE IS IN AND SEE IF THAT IS WHY HE IS FEELING ICKY . I TOLD HIM TO LET US KNOW IF HE NEEDED ANYTHING ELSE. * Niurka Bermudez MA - 01/23/2019 2:54 PM CDT LM for pt to cb * Torrie Harding - 01/23/2019 2:48 PM CDT Patient would like to speak to the medical team not the front end loader operator. Can you please call him back HAI? documented in this encounter Plan of Treatment Not on file documented as of this encounter Visit Diagnoses Not on filedocumented in this encounter Care Teams Security And Compliance Analyst Relationship Specialty Start Date End Date Fabiano Mosley MD PCP - General FAMILY PRACTICE 11/01/17 02/21/21 Derrick Herrera MD [address] [address] EP Diesel Mechanic CARDIOVASCULAR DISEASE 12/11/18 documented as of this encounter
--- OUTSIDE RECORDS SUMMARY | 2024-04-12 08:46 | XMS_ITS | Encounter Summary ---
Author Organization [facility] Address [facility] [place] [address] [place] [address] Care Team Providers Care Regulatory And Compliance Technician Name Role Phone Fabiano Mosley MD Primary Care Provider [phone] Derrick Herrera MD Unavailable [phone] Reason for Visit * Reason Onset Date Comments Pre-visit Gap Closure 07/26/2020 Encounter Details Date Type Department Care Team ([facility] st Contact Info) Description 07/26/2020 Telephone [facility] Family Medicine [address] [address] Zeina Baptiste, [facility] [place], [place] [address] Pre-visit Gap Closure Social History Tobacco Use Types Packs/Day Years [...] as of this encounter Progress Notes * Vanda Bhakta MA - 07/26/2020 4:38 PM CDT Contacted patient for pre-visit gap closure. I am calling this patient as a patient advocate for the [employer]. My direct extension is [phone]. You can also reach me at: [phone] (SULEMAN) OR [phone] (MARLEE) documented in this encounter Plan of Treatment Not on file documented as of this encounter Visit Diagnoses Not on filedocumented in this encounter Care Teams Regulatory And Compliance Technician Relationship Specialty Start Date End Date Fabiano Mosley MD PCP - General FAMILY PRACTICE 11/01/17 02/21/21 Derrick Herrera MD [address] [address] EP Company Miner Blasting CARDIOVASCULAR DISEASE 12/11/18 documented as of this encounter
--- OUTSIDE RECORDS SUMMARY | 2024-04-12 08:46 | XMS_ITS | Encounter Summary ---
Author Organization [facility] Address [address] [place] [address]. [place], [place] [address] [place] [address] Care Team Providers Care Kiln Packer Name Role Phone Fabiano Mosley MD Primary Care Provider [phone] Derrick Herrera MD Unavailable [phone] Encounter Details Date Type Department Care Team (Late st Contact Info) Description 05/13/2020 Orders Only [facility] [place] [id number] Jaime Maradiaga MD Social History Tobacco Use Types Packs/Day Years [...] on filedocumented in this encounter Care Teams Kiln Packer Relationship Specialty Start Date End Date Fabiano Mosley MD PCP - General FAMILY PRACTICE 11/01/17 02/21/21 Derrick Herrera MD Three [facility]. [address] [place] [address] EP Paver Layer CARDIOVASCULAR DISEASE 12/11/18 documented as of this encounter
--- OUTSIDE RECORDS SUMMARY | 2024-04-12 08:47 | XMS_ITS | Encounter Summary ---
Author Organization [facility] Address [address] [place] [address]. [place], [place] [address] [place] [address] Care Team Providers Care Silhouette Artist Name Role Phone Fabiano Mosley MD Primary Care Provider [phone] Derrick Herrera MD Unavailable [phone] Encounter Details Date Type Department Care Team (Latest Contact Info) Description 01/10/2019 Scan HEALTH INFO SRVCS Scanned, Documents Social History Tobacco Use Types Packs/Day Years [...] on filedocumented in this encounter Care Teams Silhouette Artist Relationship Specialty Start Date End Date Fabiano Mosley MD PCP - General FAMILY PRACTICE 11/01/17 02/21/21 Derrick Herrera MD [address] [id number] EP Middleware Administrator CARDIOVASCULAR DISEASE 12/11/18 documented as of this encounter
--- OUTSIDE RECORDS SUMMARY | 2024-04-12 08:47 | XMS_ITS | Encounter Summary ---
Author Organization [facility] Address [address] [place] [address]. [place], [place] [address] [place] [address] Care Team Providers Care Environmental Health Specialist Name Role Phone Fabiano Mosley MD Primary Care Provider [phone] Derrick Herrera MD Unavailable [phone] Reason for Referral * Imaging (Routine) - Closed Specialty Diagnoses / Procedures Referred By Lissa hermosillo Referred To Contact CARDIOLOGY DIAGNOSTICS Diagnoses Fatigue, unspecified type Heart palpitations Chest pain, unspecified type Procedures NM EXER NUC STRESS TEST 1DAY MYOCARDIAL PERFUSION IMAG TOMOGRAPHIC MULTI CARDIAC STRESS TST,DR SUPERV ONLY CARDIAC STRESS TST,INTERP/REPT ONLY Derrick Herrera MD [address] [address] Phone: tel: fax: [place] [address] Phone: tel: Referral ID Status Reason Start Date Expiration Date Visits Re quested Visits Authorized [id number] Closed 12/12/2018 01/12/2020 1 1 * (Routine) - Closed Specialty Diagnoses / Procedures Referred By Lissa hermosillo Referred To Contact Diagnoses Fatigue Heart palpitations Hypotension, unspecified hypotension type Shortness of breath Procedures Stress test only, exercise [facility] [place] [address] Phone: tel: Referral ID Status Reason Start Date Expiration Date Visits Re quested Visits Authorized [id number] Closed 01/10/2019 02/10/2020 1 1 Reason for Visit * Imaging (Routine) - Closed Specialty Diagnoses / Procedures Referred By Contac t Referred To Contact CARDIOLOGY DIAGNOSTICS Diagnoses Fatigue, unspecified type Heart palpitations Chest pain, unspecified type Procedures NM EXER NUC STRESS TEST 1DAY MYOCARDIAL PERFUSION IMAG TOMOGRAPHIC MULTI CARDIAC STRESS TST,DR SUPERV ONLY CARDIAC STRESS TST,INTERP/REPT ONLY Derrick Herrera MD Three [facility]. [address] [address] Phone: tel: fax: [place] [address] Phone: tel: Referral ID Status Reason Start Date Expiration Date Visits Re quested Visits Authorized [id number] Closed 12/12/2018 01/12/2020 1 1 Encounter Details Date Type Department Care Team (Late st Contact Info) Description 01/13/2019 10:12 AM CDT - 01/13/2019 11:59 PM CDT Hospital Encounter [facility] Nuclear Medicine [place], [place] [id number] Derrick Herrera MD [address] [address] Discharge Disposition: Home or Self Care (Routine Discharge) Social History Tobacco Use Types Packs/Day Years [...] on file documented as of this encounter Medications at Time of Discharge alfuzosin ER 10 MG 24 hr tablet 12/11/2018 9 escitalopram (LEXAPRO) 20 MG tabletIndications :Anxiety Take 1 tablet (20 mg total) by mouth daily. 30 tablet 1 10/14/2018 09/07/2019 finasteride 5 MG tabletIndications :Benign prostatic hyperplasia with urinary hesitancy Take 1 tablet (5 mg total) by mouth daily. 90 tablet 5 10/14/2018 01/16/2019 tadalafil 5 MG tablet CHEW AND SWALLOW ONE GUMMY ONCE DAILY. 2 02/22/2018 01/16/2019 tamsulosin 0.4 MG CapIndications:Er ectile dysfunction, unspecified erectile dysfunction type Take 1 capsule (0.4 mg total) by mouth daily. 90 capsule 3 11/26/2018 01/16/2019 documented as of this encounter Plan of Treatment Not on file documented as of this encounter Procedures Procedure Name Priority Date/Time Associated Diagnosis Comments NM EXER NUC STRESS TEST 1DAY Routine 01/13/2019 12:53 PM CDT Fatigue Heart palpitations Chest pain STRESS TEST ONLY, EXERCISE Routine 01/12/2019 12:30 AM CDT Fatigue Heart palpitations Hypotension, unspecified hypotension type Shortness of breath documented in this encounter Results * NM EXER NUC STRESS TEST 1DAY (01/13/2019 12:53 PM CDT) Anatomical Region Laterality Modality Cardiac Nuclear Medicine 01/13/2019 11:0 0 AM CDT us Derrick Herrera MD NUC MED Final Resul t documented in this encounter Visit Diagnoses Diagnosis Shortness of breath- Primary Fatigue Other malaise and fatigue Heart palpitations Palpitations Hypotension, unspecified hypotension type Chest pain Chest pain, unspecified documented in this encounter Administered Medications Inactive Administered Medications - up to 3 most recent administrations Medication Order MAR Action Action Date Dose Rate Site Generic Radiopharmaceutical 44 millicurie 44 millicurie, Intravenous, IMG once as needed, 11.0 mCi rest myoview and 33.0 mCi stress myoview inj. LTAC, 1 dose, Starting on Sun01/13/19 at 1020, Until Sun01/13/19 at 1020 Given 01/13/2019 10:20 AM CDT 44 millicuries documented in this encounter Care Teams Environmental Health Specialist Relationship Specialty Start Date End Date Fabiano Mosley MD PCP - General FAMILY PRACTICE 11/01/17 02/21/21 Derrick Herrera MD [address] [address] EP Mine Inspector CARDIOVASCULAR DISEASE 12/11/18 documented as of this encounter
--- OUTSIDE RECORDS SUMMARY | 2024-04-12 08:47 | XMS_ITS | Encounter Summary ---
Author Organization [facility] Address [address] [place] [address]. [place], [place] [address] [place] [address] Care Team Providers Care Awning Craftsperson Name Role Phone Fabiano Mosley MD Primary Care Provider [phone] Derrick Herrera MD Unavailable [phone] Encounter Details Date Type Department Care Team (Late st Contact Info) Description 12/26/2018 Orders Only [facility] at [facility], [address] [place], [place] [id number] Derrick Herrera MD [facility]. [address] [place] [address] Social History Tobacco Use Types Packs/Day Years [...] Procedure Name Priority Date/Time Associated Diagnosis Comments HOLTER MONITOR 24 HR REC Routine 12/12/2018 Fatigue Heart palpitations Chest pain documented in this encounter Results * Holter Monitor 24 Hr (12/12/2018) us Derrick Herrera MD HOLTER Final Resul t documented in this encounter Visit Diagnoses Diagnosis Fatigue Other malaise and fatigue Heart palpitations Palpitations Chest pain Chest pain, unspecified documented in this encounter Care Teams Awning Craftsperson Relationship Specialty Start Date End Date Fabiano Mosley MD PCP - General FAMILY PRACTICE 11/01/17 02/21/21 Derrick Herrera MD [address] [address] EP Veneer Stacker CARDIOVASCULAR DISEASE 12/11/18 documented as of this encounter
--- OUTSIDE RECORDS SUMMARY | 2024-04-12 08:47 | XMS_ITS | Encounter Summary ---
Author Organization [facility] Address [address] [place] [address]. [place], [place] [address] [place] [address] Care Team Providers Care Turbine Mechanic Name Role Phone Fabiano Mosley MD Primary Care Provider [phone] Derrick Herrera MD Unavailable [phone] Reason for Visit * Reason Onset Date Comments Results 12/17/2018 Holter results Encounter Details Date Type Department Care Team (Late st Contact Info) Description 12/17/2018 Telephone [facility] at [facility], [facility] [address] [place] [address] Derrick Herrera MD [facility]. [facility] [address] [place] [address] Results (Holter results) Social History Tobacco Use Types Packs/Day Years [...] on file Sexual Orientation Not on file documented as of this encounter Progress Notes * Derrick Herrera MD - 12/17/2018 12:06 PM CDT Left VM regarding Holter results. documented in this encounter Plan of Treatment Not on file documented as of this encounter Visit Diagnoses Not on filedocumented in this encounter Care Teams Turbine Mechanic Relationship Specialty Start Date End Date Fabiano Mosley MD PCP - General FAMILY PRACTICE 11/01/17 02/21/21 Derrick Herrera MD [address] [address] EP Client Resource Specialist CARDIOVASCULAR DISEASE 12/11/18 documented as of this encounter
--- OUTSIDE RECORDS SUMMARY | 2024-04-12 08:47 | XMS_ITS | Encounter Summary ---
Author Organization [facility] Address [address] [place] [address]. [place], [place] [address] [place] [address] Care Team Providers Care Rn Admit Name Role Phone Fabiano Mosley MD Primary Care Provider [phone] Derrick Herrera MD Unavailable [phone] Reason for Referral * Imaging (Routine) - Closed Specialty Diagnoses / Procedures Referred By Lissa hermosillo Referred To Contact CARDIOLOGY DIAGNOSTICS Diagnoses Fatigue, unspecified type Heart palpitations Chest pain, unspecified type Procedures NM EXER NUC STRESS TEST 1DAY MYOCARDIAL PERFUSION IMAG TOMOGRAPHIC MULTI CARDIAC STRESS TST,DR SUPERV ONLY CARDIAC STRESS TST,INTERP/REPT ONLY Derrick Herrera MD [address] [address] Phone: tel: fax: [place] [address] Phone: tel: Referral ID Status Reason Start Date Expiration Date Visits Re quested Visits Authorized [id number] Closed 12/12/2018 01/12/2020 1 1 * Diagnostic Lab (Routine) - Closed Specialty Diagnoses / Procedures Referred By Lissa hermosillo Referred To Contact CARDIOLOGY Diagnoses Fatigue, unspecified type Heart palpitations Chest pain, unspecified type Procedures Holter Monitor 24 Hr Derrick Herrera MD [address] [address] Phone: tel: fax: [facility] [address] Phone: tel: fax: Referral ID Status Reason Start Date Expiration Date Visits Re quested Visits Authorized [id number] Closed 12/12/2018 01/12/2019 1 1 Reason for Visit * Reason Comments Heart Problem CONSULT Hypotension * Consultation (Urgent) - Closed Specialty Diagnoses / Procedures Referred By Contact Referred To Contact CARDIOLOGY / Cardiology Diagnoses Palpitations Anxiety Hypotension, unspecified hypotension type Fabiano Mosley MD Phone: tel:[phone] fax:[phone] [facility] at [address] [address] Phone: tel: fax: Referral ID Status Reason Start Date Expiration Date V isits Requested Visits Authorized [id number] Closed Specialty Services 11/29/2018 12/29/2019 1 1 Encounter Details Date Type Department Care Team (Late st Contact Info) Description 12/12/2018 2:00 PM CDT Office Visit [facility] at [address] [address] Derrick Herrera MD [facility]. [facility] [address] [place], [place] [address] Heart Problem (CONSULT); Hypotension Social History Tobacco Use Types Packs/Day Years [...] Sign Reading Time Taken Comments Blood Pressure 120/100 12/12/2018 2:47 PM CDT Pulse 87 12/12/2018 2:47 PM CDT Temperature - - Respiratory Rate - - Oxygen Saturation 94% 12/12/2018 2:47 PM CDT Inhaled Oxygen Concentration - - Weight 67.1 kg (148 lb) 12/12/2018 2:45 PM CDT Height 185.4 cm (6' 1 ) 12/12/2018 2:45 PM CDT Body Mass Index 19.53 12/12/2018 2:45 PM CDT documented in this encounter Patient Instructions * Patient Instructions* Luisa Brar - 12/12/2018 2:00 PM CDT Patient Education Fatigue Signs of fatigue: -Severe shortness of breath, breathlessness -Vertigo, dizziness, or feeling faint-Nausea or cold sweat -Loss of sense of direction - Flushed or red face -Irregular or unusual heart rate -Extreme weakness or sudden fatigue -Pressure or pain in the arm, chest or throat If you experience these feelings: Stop vigorous exercise, notify instructor or secretary office clerk, and ask for help. Normal fatigue should only last 2-3 hours after aquatic exercise. If more than that, reduce the intensity of your next exercise session. Copyright ?? V[employer]. All rights reserved. documented in this encounter Progress Notes * Derrick Herrera MD - 12/12/2018 2:00 PM CDT Images from the original note were not included. [place], [place] [address] Cardiac Electrophysiology History and Physical Examination Patient name: Cruz Carreon Referring Provider: Fabiano Mosley MD Primary Care Provider: Fabiano Mosley MD Reason for Consultation: palpitations/syncope Chief Complaint: Palpitations/syncope History of Present Illness Cruz Carreon is a 68-year-old male with a history of BPH, tobacco use, referred for consultation regarding evaluation of palpitations. He says he has significant BPH and since starting tamsulosin and finesteride he has gotten worse and worse in regards to weakness and fatigue. He has noted some improvement since stopping the medications on his own 5 days ago. He saw Dr. Mosley recently and wasfound to be orthostatic per his report. He is about to start a new medication for his BPH. He notesthree syncopal episodes in the past year. He says at one point he was leaving work and he woke up on the ground after passing out to bend down to lock the door on the way out. He hit his head on the way down. 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 He has also had palpitations when getting up. They have been present for some time. They are worse when he is feeling weak. They last a few hours in the morning then resolve. They occur daily. He does feel a little twinge of left chest pain and usually at rest. He does not feel he gets dyspnea on exertion. He reports family history of CAD in brother and father. Assessment and Plan Mr. Carreon is a 68-year-old male here today for evaluation of recurrent syncope and palpitations. Palpitations: Unclear etiology. They are daily and almost chronic in nature. - 24 hour holter to assess for arrhythmic etiology. Syncope: Random episodes. Unclear if related to exhaustion, orthostasis due to recent BPH meds, vasovagal, or cardiac. Lower suspicion for cardiac etiology based on patient's history of events. - Stress as below. - Consider manager terminal rhythm monitoring. - Avoid meds which may precipitate orthostasis such as alpha blockers. - Encouraged regular fluid intake of at least 64 oz of water per day. Atypical chest pain: Will obtain treadmill stress nuclear perfusion study for further CAD risk stratification given baseline ECG abnormality in association with fatigue symptoms with atypical chest pain. He has CAD risk factors with a family history and his extensive smoking history. History Review of Systems Constitutional: Positive for malaise/fatigue and weight loss. HENT: Negative. Eyes: Positive for blurred vision. Respiratory: Positive for shortness of breath. Cardiovascular: Positive for chest pain and palpitations. Gastrointestinal: Negative. Genitourinary: Positive for dysuria. Musculoskeletal: Positive for joint pain and myalgias. Neurological: Positive for tingling, weakness and headaches. Current Problems: Patient Active Problem List Diagnosis [...] unspecified hypotension type ??? Shortness of breath Past Medical History: Past Medical History: Diagnosis Date ??? Arthritis ??? Heart murmur ??? Heart palpitations 12/10/2018 ??? Hypotension, unspecified hypotension type 12/10/2018 ??? Prostatitis ??? Shortness of breath 12/12/2018 Past Surgical History: Past Surgical History: Procedure [...] Prescriptions No medications on file Previous Medications ESCITALOPRAM (LEXAPRO) 20 MG TABLET Take 1 tablet (20 mg total) by mouth daily. FINASTERIDE 5 MG TABLET Take 1 tablet (5 mg total) by mouth daily. TADALAFIL 5 MG TABLET CHEW AND SWALLOW ONE GUMMY ONCE DAILY. TAMSULOSIN 0.4 MG CAP Take 1 capsule (0.4 mg total) by mouth daily. Modified Medications No medications on file Discontinued Medications No medications on file Physical Exam Filed Vitals: 12/12/18 1445 12/12/18 1447 BP: 126/90 (!) 120/100 Pulse: 82 87 SpO2: 97% 94% Weight: 67.1 kg (148 lb) Height: 6' 1 (1.854 m) Physical [...] PM TSH 0.758 11/29/2018 12:05 PM Echo: NA EKG: NSR, RSR' in V1 Other Imaging: CXR:CT chest: Subpleural linear lung opacities in the lung bases, predominantly at the left lung base, or stable compared with 07/25/2018 and 04/25/2018 02/01/18 likely parenchymal bands related to scarring. 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 This is stable dating back to 11/01/2017. No suspicious lesion is identified. Mild upper lobe centrilobular and paraseptal emphysema. No new or progressive lesions identified. Stable ascending aortic ectasia measuring 4 cm. MD [facility] Cardiac Electrophysiology ; ext. [phone] Pager: [phone] 12/12/2018 3:05 PM GN ENGINEER PRODUCTS documented in this encounter Plan of Treatment Not on file documented as of this encounter Results * NM EXER NUC STRESS TEST 1DAY (01/13/2019 12:53 PM CDT) Anatomical Region Laterality Modality Cardiac Nuclear Medicine 01/13/2019 11:0 0 AM CDT us Derrick Herrera MD NUC MED Final Resul t * Holter Monitor 24 Hr (12/12/2018) us Derrick Herrera MD HOLTER Final Resul t documented in this encounter Visit Diagnoses Diagnosis Syncope, unspecified syncope type- Primary Fatigue, unspecified type Heart palpitations Palpitations Chest pain, unspecified type documented in this encounter Care Teams Rn Admit Relationship Specialty Start Date End Date Fabiano Mosley MD PCP - General FAMILY PRACTICE 11/01/17 02/21/21 Derrick Herrera MD [address] [address] EP Daytime Babysitter CARDIOVASCULAR DISEASE 12/11/18 documented as of this encounter
--- OUTSIDE RECORDS SUMMARY | 2024-04-12 08:47 | XMS_ITS | Encounter Summary ---
Author Organization [facility] Address [address] [place] [address]. [place], [place] [address] [place] [address] Care Team Providers Care Family Consultant Name Role Phone Fabiano Mosley MD Primary Care Provider [phone] Derrick Herrera MD Unavailable [phone] Reason for Visit * Reason Onset Date Comments Record Request 12/24/2018 Encounter Details Date Type Department Care Team (Late st Contact Info) Description 12/24/[address] [facility] Multispecialty Care - [address], [address] [place] [address] Landon Rubio MD [address] [place] [address] LEIF J[place]NSON [id number] Record Request Social History Tobacco Use Types Packs/Day Years [...] as of this encounter Progress Notes * Silvia Lamas RN - 12/27/2018 2:41 PM CDT Called and told to call Deirdre at [phone]. Told Deirdre out for the day, but given fax #: [phone]. Faxed office note to Deirdre. * Gayathri Durbin - 12/24/2018 9:[address] Yip's office called re: records. They stated Dr Rubio was going to send records to them for pt's appt and they also sent us a request about 2 weeks ago. Pt is being seen and they are need records please. Call and speak to Deirdre [phone] documented in this encounter Plan of Treatment Not on file documented as of this encounter Visit Diagnoses Not on filedocumented in this encounter Care Teams Family Consultant Relationship Specialty Start Date End Date Fabiano Mosley MD PCP - General FAMILY PRACTICE 11/01/17 02/21/21 Derrick Herrera MD [address] [address] EP Nuclear Security Officer CARDIOVASCULAR DISEASE 12/11/18 documented as of this encounter
--- OUTSIDE RECORDS SUMMARY | 2024-04-12 08:48 | XMS_ITS | Encounter Summary ---
Author Organization [facility] Address [address] [place] [address]. [place], [place] [address] [place] [address] Care Team Providers Care Distillery Supervisor Name Role Phone Fabiano Mosley MD Primary Care Provider [phone] Derrick Herrera MD Unavailable [phone] Encounter Details Date Type Department Care Team (Latest Contact Info) Description 12/10/2018 Scan HEALTH INFO SRVCS Scanned, Documents Social History Tobacco Use Types Packs/Day Years Used Date Smoking Tobacco: Every Day Cigarettes 0 Smokeless Tobacco: Never Alcohol Use Standard Drinks/Week Comments No 0 (1 standard drink = 0.6 oz pur e alcohol) AUDIT-C Answer Date Recorded Frequency of Alcohol [...] on filedocumented in this encounter Care Teams Distillery Supervisor Relationship Specialty Start Date End Date Fabiano Mosley MD PCP - General FAMILY PRACTICE 11/01/17 02/21/21 Derrick Herrera MD [address] [place] [address] EP Wood Room Hand CARDIOVASCULAR DISEASE 12/11/18 documented as of this encounter
--- OUTSIDE RECORDS SUMMARY | 2024-04-12 08:48 | XMS_ITS | Encounter Summary ---
Author Organization [facility] Address [address] [place] [address]. [place], [place] [address] [place] [address] Care Team Providers Care Federal District Law Clerk Name Role Phone Fabiano Mosley MD Primary Care Provider [phone] Derrick Herrera MD Unavailable [phone] Encounter Details Date Type Department Care Team (Latest Contact Info) Description 11/29/2018 Scan HEALTH INFO SRVCS Scanned, Documents Social [...] on filedocumented in this encounter Care Teams Federal District Law Clerk Relationship Specialty Start Date End Date Fabiano Mosley MD PCP - General FAMILY PRACTICE 11/01/17 02/21/21 Derrick Herrera MD [address] [place] [address] EP Monorail Helper CARDIOVASCULAR DISEASE 12/11/18 documented as of this encounter
--- OUTSIDE RECORDS SUMMARY | 2024-04-12 08:48 | XMS_ITS | Encounter Summary ---
Author Organization [facility] Address [address] [place] [address]. [place], [place] [id number] [place] [id number] Care Team Providers Care Mini Bar Attendant Name Role Phone Fabiano Mosley MD Primary Care Provider [phone] Reason for Referral * Imaging (Routine) - Closed Specialty Diagnoses / Procedures Referred By Contac t Referred To Contact RADIOLOGY Diagnoses Lung nodule, solitary Procedures CT CHEST WO CON CT CHEST WO CONT LOW DOSE Fabiano Mosley MD Phone: tel: fax: Referral ID Status Reason Start Date Expiration Date Visits Re quested Visits Authorized [id number] Closed 10/14/2018 11/15/2019 1 1 Reason for Visit * Reason Comments Follow Up 3 month follow up. S tates that everything is about the same since last visit Encounter Details Date Type Department Care Team (Late st Contact Info) Description 10/14/2018 1:00 PM CDT Office Visit [facility] Family Medicine [address] [phone] Fabiano Mosley MD [address] [place] [address] Follow Up (3 month follow up. States that everything is about the same since last visit) Social History Tobacco Use Types Packs/Day Years [...] Sign Reading Time Taken Comments Blood Pressure 112/70 10/14/2018 1:01 PM CDT Pulse 65 10/14/2018 1:01 PM CDT Temperature 36.7 ??C (98 ??F) 10/14/2018 1:01 PM CDT Respiratory Rate 16 10/14/2018 1:01 PM CDT Oxygen Saturation 98% 10/14/2018 1:01 PM CDT Inhaled Oxygen Concentration - - Weight 69.5 kg (153 lb 3.2 oz) 10/14/2018 1:01 P M CDT Height 185.4 cm (6' 1 ) 10/14/2018 1:01 PM CDT Body Mass Index 20.21 10/14/2018 1:01 PM CDT documented in this encounter Progress Notes * Fabiano Mosley MD - 10/14/2018 1:00 PM CDT Images from the original note were not included. Office Progress Note Reason for Visit: No chief complaint on file. History of Present Illness: 68 yo M presents for follow up BPH -Tamulosin, finasteride working well. Prostate shrank. Anxiety -Working well, but room for improvement. Increased lexapro to 20mg. Stress and anxiety due to working 12 hours, 7 days a week. 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 ?? Will repeat CT scan for lung nodule. Next due January 2019. ?? Fatigue improved off finasteride ROS: Review of Systems Constitutional: Positive for malaise/fatigue and weight loss. Negative for chills, diaphoresis and fever. HENT: Negative. Negative for sore throat. Respiratory: Negative for cough, shortness of breath and wheezing. Cardiovascular: Negative for chest pain, palpitations and leg swelling. Gastrointestinal: Negative for constipation, diarrhea, nausea and vomiting. Musculoskeletal: Negative for falls and joint pain. Skin: Negative for itching and rash. Neurological: Negative for dizziness, weakness and headaches. Psychiatric/Behavioral: Negative for depression and suicidal ideas. The patient is nervous/anxious. Medications: Current Outpatient Medications: ??? diclofenac sodium (VOLTAREN) 1 % gel, Apply 4 g topically 4 (four) times daily., Disp: 100 g, Rfl: 3 ??? escitalopram (LEXAPRO) 10 MG tablet, Take 1 tablet (10 mg total) by mouth daily., Disp: 90 tablet, Rfl: 1 ??? finasteride 5 MG tablet, Take 1 tablet (5 mg total) by mouth daily., Disp: 30 tablet, Rfl: 3 ??? finasteride 5 MG tablet, Take 1 tablet (5 mg total) by mouth daily., Disp: 30 tablet, Rfl: 5 ??? tadalafil 5 MG tablet, Take 1 tablet (5 mg total) by mouth daily., Disp: 30 tablet, Rfl: 3 ??? tamsulosin 0.4 MG Cap, Take 1 capsule (0.4 mg total) by mouth daily., Disp: 30 capsule, Rfl: 3 Allergies: No Known Allergies Medical History: Past Medical History: Diagnosis Date ??? Prostatitis Surgical History: Past Surgical History: Procedure Laterality Date ??? GI PROSTATE BIOPSY Social History: Social History Socioeconomic History ??? Marital status: Single Spouse name: Not on file ??? Number of children: Not on file ??? Years of education: Not on file ??? Highest education level: Not on file Occupational History ??? Not on file Social Needs ??? Financial resource strain: Not on file ??? Food insecurity: Worry: Not on file Inability: Not on file ??? Transportation needs: Medical: Not on file Non-medical: Not on file Tobacco Use ??? Smoking status: Current Every Day Smoker Packs/day: 0.50 Years: 0.00 Pack years: 0.00 Types: Cigarettes ??? Smokeless tobacco: Never Used Substance and Sexual Activity ??? Alcohol use: No Frequency: Never ??? Drug use: No ??? Sexual activity: Not Currently Partners: Female Lifestyle ??? Physical activity: Days per week: Not on file Minutes per session: Not on file ??? Stress: Not on file Relationships ??? Social connections: Talks on phone: Not on file Gets together: Not on file Attends catholic service: Not on file Active member of club or organization: Not on file Attends meetings of clubs or organizations: Not on file Relationship status: Not on file ??? Intimate partner violence: Fear of current or ex partner: Not on file Emotionally abused: Not on file Physically abused: Not on file Forced sexual activity: Not on file Other Topics Concern ??? Not on file Social History Narrative ??? Not on file Family History: No family history on file. PE: Physical Exam Constitutional: He appears well-developed and well-nourished. No distress. HENT: Head: Normocephalic and atraumatic. Right Ear: External ear normal. Cardiovascular: Normal rate, regular rhythm, normal heart sounds and intact distal pulses. Exam reveals no gallop and no friction rub. No murmur heard. Pulmonary/Chest: Effort normal. No respiratory distress. Skin: Skin is warm and dry. No rash noted. He is not diaphoretic. No erythema. Psychiatric: He has a normal mood and affect. His behavior is normal. Nursing note and vitals reviewed. There were no vitals filed for this visit. Diagnoses/Impression: No diagnosis found. Recommendations and Plan: BPH -Tamulosin, finasteride working well. Prostate shrank. Anxiety -Working well, but room for improvement. Increased lexapro to 20mg. Stress and anxiety due to working 12 hours, 7 days a week. 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 ?? Will repeat CT scan for lung nodule. Next due January 2019. ?? Fatigue improved off finasteride, however needs for prostate. ?? No orders of the defined types were placed in this encounter. Cannot display discharge medications since this is not an admission. PCP: Fabiano Mosley MD 10/14/2018 documented in this encounter Plan of Treatment Not on file documented as of this encounter Results * CT CHEST WO CON (10/29/2018 1:23 PM CDT) Anatomical Region Laterality Modality Chest Computed Tomogra phy 10/31/2018 2:21 PM CDT Impressions 10/31/2018 2:38 PM CDT IMPRESSION: Subpleural linear lung opacities in the lung [...] Stable ascending aortic ectasia measuring 4 cm. Narrative 10/31/2018 2:38 PM CDT EXAMINATION: CT CHEST WITHOUT CONTRAST EXAM DATE/TIME: 10/29/2018 1:05 PM REASON FOR EXAM: ??lung nodule surveillance ? Pulmonary nodule COMPARISON: 07/25/2018, 04/25/2018 TECHNIQUE: Computed tomography was performed of the chest without intravenous contrast. A dose lowering technique was used for this procedure, which may include, but is not limited to, dose reduction technique, automated exposure control, iterative reconstruction, ALARA (As Low As Reasonably Achievable), or Image Gently techniques. FINDINGS: Subpleural linear lung opacities in the lung bases, predominantly at the left lung base, or stable compared with 07/25/2018 and 04/25/2018 02/01/18 likely parenchymal bands related to scarring. 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 This is stable dating back to 11/01/2017. No suspicious lesion is identified. Mild upper lobe centrilobular and paraseptal emphysema. No new or progressive lesions identified. On soft tissue windows, no axillary or supraclavicular lymphadenopathy. On mediastinal windows, no evidence of hilar or mediastinal lymphadenopathy. Heart size normal. No pericardial effusion. Stable ascending aortic ectasia measuring 4 cm. Limited evaluation of the upper abdomen demonstrates no acute abnormality. On bone windows, no suspicious skeletal lesion or acute compression fracture deformity. Procedure Note Justus Mejia MD - 10/31/2018 EXAMINATION: CT CHEST WITHOUT CONTRAST EXAM DATE/TIME: 10/29/2018 1:05 PM REASON FOR EXAM: lung nodule surveillance Pulmonary nodule COMPARISON: 07/25/2018, 04/25/2018 TECHNIQUE: Computed tomography was performed of the chest without intravenous contrast. A dose lowering technique was used for this procedure, which mayinclude, but is not limited to, dose reduction technique, automated exposure control, iterative reconstruction, ALARA (As Low As ReasonablyAchievable), or Image Gently techniques. FINDINGS: Subpleural linear lung opacities in the lung bases, predominantly at the left lung base, or stable compared with 07/25/2018 and 04/25/2018 02/01/18 likely parenchymal bands related to scarring. 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 This is stable dating back to 11/01/2017. No suspicious lesion is identified. Mild upper lobe centrilobular and paraseptal emphysema. No new or progressive lesions identified. On soft tissue windows, no axillary or supraclavicular lymphadenopathy. On mediastinal windows, no evidence of hilar or mediastinal lymphadenopathy. Heart size normal. No pericardial effusion. Stable ascending aortic ectasia measuring 4 cm. Limited evaluation of the upper abdomen demonstrates no acuteabnormality. On bone windows, no suspicious skeletal lesion or acute compression fracture deformity. IMPRESSION: Subpleural linear lung opacities in the lung bases, predominantly at the left lung base, or stable compared with 07/25/2018 and 04/25/2018 02/01/18 likely parenchymal bands related to scarring. 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 This is stable dating back to 11/01/2017. No suspicious lesion is identified. Mild upper lobe centrilobular and paraseptal emphysema. No new or progressive lesions identified. Stable ascending aortic ectasia measuring 4 cm. us Fabiano Mosley MD CT Final Result documented in this encounter Visit Diagnoses Diagnosis Anxiety- Primary Anxiety state, unspecified Lung nodule, solitary Solitary pulmonary nodule Benign prostatic hyperplasia with urinary hesitancy Erectile dysfunction, unspecified erectile dysfunction type Lung nodule, solitary Solitary pulmonary nodule documented in this encounter Care Teams Mini Bar Attendant Relationship Specialty Start Date End Date Fabiano Mosley MD PCP - General FAMILY PRACTICE 11/01/17 02/21/21 documented as of this encounter
--- OUTSIDE RECORDS SUMMARY | 2024-04-12 08:48 | XMS_ITS | Encounter Summary ---
Author Organization [facility] Address [address] [place] [address]. [place], [place] [id number] [place] [address] Care Team Providers Care Gear Cutting Machine Set Up Operator Name Role Phone Fabiano Mosley MD Primary Care Provider [phone] Reason for Referral * Imaging (Routine) - Closed Specialty Diagnoses / Procedures Referred By Contac t Referred To Contact RADIOLOGY Diagnoses Lung nodule, solitary Procedures CT CHEST WO CON CT CHEST WO CONT LOW DOSE Fabiano Mosley MD Phone: tel: fax: Referral ID Status Reason Start Date Expiration Date Visits Re quested Visits Authorized [id number] Closed 10/14/2018 11/15/2019 1 1 Reason for Visit * Imaging (Routine) - Closed Specialty Diagnoses / Procedures Referred By Contac t Referred To Contact RADIOLOGY Diagnoses Lung nodule, solitary Procedures CT CHEST WO CON CT CHEST WO CONT LOW DOSE Fabiano Mosley MD Phone: tel: fax: Referral ID Status Reason Start Date Expiration Date Visits Re quested Visits Authorized [id number] Closed 10/14/2018 11/15/2019 1 1 Encounter Details Date Type Department Care Team (Late st Contact Info) Description 10/29/2018 1:00 PM CDT - 10/29/2018 11:59 PM CDT Hospital Encounter [facility] [address] [place] [address] Fabiano Mosley MD [address] [place] [address] Discharge Disposition: Home or Self Care (Routine [...] this encounter Medications at Time of Discharge escitalopram (LEXAPRO) 20 MG tabletIndications :Anxiety Take [...] total) by mouth daily. 90 capsule 3 10/14/2018 11/26/2018 documented as of this encounter Plan of Treatment Not on file documented as of this encounter Procedures Procedure Name Priority Date/Time Associated Diagnosis Comments CT CHEST WO CON Routine 10/29/2018 1:23 PM CDT Lung nodule, solitary documented in this encounter Results * CT CHEST WO [...] documented in this encounter Visit Diagnoses Diagnosis Lung nodule, solitary Solitary pulmonary nodule documented in this encounter Care Teams Gear Cutting Machine Set Up Operator Relationship Specialty Start Date End Date Fabiano Mosley MD PCP - General FAMILY PRACTICE 11/01/17 02/21/21 documented as of this encounter
--- OUTSIDE RECORDS SUMMARY | 2024-04-12 08:48 | XMS_ITS | Encounter Summary ---
Author Organization [facility] Address [address] [place] [address]. [address] [address] Care Team Providers Care Manager Stars Name Role Phone Fabiano Mosley MD Primary Care Provider [phone] Reason for Referral * Consultation (Urgent) - Closed Specialty Diagnoses / Procedures Referred By Contact Referred To Contact CARDIOLOGY / Cardiology Diagnoses Palpitations Anxiety Hypotension, unspecified hypotension type Fabiano Mosley MD Phone: tel:[phone] fax:[phone] [facility] [address] Phone: tel: fax: Referral ID Status Reason Start Date Expiration Date V isits Requested Visits Authorized [id number] Closed Specialty Services 11/29/2018 12/29/2019 1 1 * Consultation (Urgent) - Closed Specialty Diagnoses / Procedures Referred By Contac t Referred To Contact UROLOGY Diagnoses Benign prostatic hyperplasia with urinary hesitancy Fabiano Mosley MD Phone: tel: fax: Referral ID Status Reason Start Date Expiration Date V isits Requested Visits Authorized [id number] Closed Specialty Services 11/29/2018 12/31/2019 100 100 Scheduling Instructions Please send to [facility] Reason for Visit * Reason Comments Anxiety feels off jittery inside, heart racing, feel shakey and weak, happens every morning Encounter Details Date Type Department Care Team (Late st Contact Info) Description 11/29/2018 10:20 AM CDT Office Visit [facility] Family Medicine [address] [address] Fabiano Mosley MD [address] [facility] [place] [address] Anxiety (feels off jittery inside, heart racing, feel shakey and weak, happens every morning) Social History Tobacco Use Types Packs/Day Years [...] Sign Reading Time Taken Comments Blood Pressure 110/60 11/29/2018 10:12 AM CDT Pulse 70 11/29/2018 10:12 AM CDT Temperature 36.6 ??C (97.8 ??F) 11/29/2018 10:12 AM C DT Respiratory Rate - - Oxygen Saturation 96% 11/29/2018 10:58 AM CDT Inhaled Oxygen Concentration - - Weight 69.4 kg (153 lb) 11/29/2018 10:12 AM CDT Height 185.4 cm (6' 1 ) 11/29/2018 10:12 AM CDT Body Mass Index 20.19 11/29/2018 10:12 AM CDT documented in this encounter Progress Notes * Fabiano Mosley MD - 11/29/2018 10:20 AM CDT Images from the original note were not included. Office Progress Note Reason for Visit: Anxiety (feels off jittery inside, heart racing, feel shakey and weak, happens every morning) History of Present Illness: 68 yo M presents for follow up Anxiety/fatigue/weak/heart racing -Currently on lexapro. Feels off /jittery inside, with heart racing, feel shaky and weak. States occurs every morning. -Orthostatics show he is bradycardic and hypotensive when laying down, however normalizes when sitting and standing to borderline normal. BP definitely trending down over recent past. EKG normal BPH -Follow up with urologist. -Second opinion for PEA, as medication not tolerated. ROS: Review of Systems Constitutional: Positive for malaise/fatigue. Negative for chills, diaphoresis, fever and weight loss. HENT: Negative for congestion, sinus pain and sore throat. Eyes: Negative. Negative for blurred vision. Respiratory: Negative for cough, shortness of breath and wheezing. Cardiovascular: Positive for palpitations. Negative for chest pain and leg swelling. Gastrointestinal: Negative for constipation, diarrhea, nausea and vomiting. Musculoskeletal: Negative for falls and joint pain. Skin: Negative for itching and rash. Neurological: Positive for weakness. Negative for dizziness and headaches. Jittery Psychiatric/Behavioral: Negative for depression and suicidal ideas. The patient is nervous/anxious. Medications: Current Outpatient Medications: ??? escitalopram (LEXAPRO) 20 MG tablet, Take 1 tablet (20 mg total) by mouth daily., Disp: 30 tablet, Rfl: 1 ??? finasteride 5 MG tablet, Take 1 tablet (5 mg total) by mouth daily., Disp: 90 tablet, Rfl: 5 ??? tadalafil 5 MG tablet, CHEW AND SWALLOW ONE GUMMY ONCE DAILY., Disp: , Rfl: 2 ??? tamsulosin 0.4 MG Cap, Take 1 capsule (0.4 mg total) by mouth daily., Disp: 90 capsule, Rfl: 3 Allergies: No Known Allergies [...] file Gets together: Not on file Attends scientology service: Not on file Active member of [...] on file. PE: Physical Exam Constitutional: He is oriented to person, place, and time. He appears well- developed and well-nourished. No distress. HENT: Head: Normocephalic and atraumatic. Right Ear: External ear normal. Left Ear: External ear normal. Nose: Nose normal. Mouth/Throat: Oropharynx is clear and moist. Eyes: Conjunctivae are normal. Pupils are equal, round, and reactive to light. Right eye exhibits no discharge. Left eye exhibits no discharge. Neck: Neck supple. Cardiovascular: Normal rate, regular rhythm, normal heart sounds and intact distal pulses. Exam reveals no gallop and no friction rub. No murmur heard. Pulmonary/Chest: Effort normal and breath sounds normal. No respiratory distress. He has no wheezes. He has no rales. Abdominal: Soft. Bowel sounds are normal. There is no tenderness. Musculoskeletal: Normal range of motion. He exhibits no edema or tenderness. Lymphadenopathy: He has no cervical adenopathy. Neurological: He is alert and oriented to person, place, and time. No cranial nerve deficit. Skin: Skin is warm and dry. No rash noted. He is not diaphoretic. No erythema. Psychiatric: He has a normal mood and affect. Nursing note and vitals reviewed. Filed Vitals: 11/29/18 1012 BP: 110/60 Pulse: 70 Temp: 97.8 ??F (36.6 ??C) SpO2: 98% Weight: 69.4 kg (153 lb) Height: 6' 1 (1.854 m) Diagnoses/Impression: No diagnosis found. Recommendations and Plan: Anxiety/fatigue/weak/heart racing -Currently on lexapro. Feels off /jittery inside, with heart racing, feel shaky and weak. States occurs every morning. Of note symptoms were present during recent relaxing vacation. -Orthostatics show he is bradycardic and hypotensive when laying down, however normalizes when sitting and standing to borderline normal. BP definitely trending down over recent past. EKG normal -Reviewed medications that can cause fatigue and symptoms above; will trial off finasteride a few days to see if improves. -Labs ordered, cardiology referral placed. BPH -Follow up with urologist. -Second opinion for PEA, as medication not tolerated. No orders of the defined types were placed in this encounter. Cannot display discharge medications since this is not an admission. PCP: Fabiano Mosley MD 11/29/2018 documented in this encounter Plan of Treatment Scheduled Referrals Name Type Priority Associated Diagnoses Orde r Schedule Ambulatory referral to Urology (OTHER) Referral Routine Benign prostatic hyperplasia with urinary hesitancy Ordered: 11/29/2018 Ambulatory referral to Cardiology, Adult (OTHER) Referral Routine Palpitations Anxiety Hypotension, unspecified hypotension type Ordered: 11/29/2018 documented as of this encounter Procedures Procedure Name Priority Date/Time Associated Diagnosis Comments ELECTROCARDIOGRAM, COMPLETE Routine 11/29/2018 Palpitations documented in this encounter Results * THYROID STIM HORMONE, TSH (11/29/2018 12:05 PM CDT) TSH 0.758 0.358 - 3.74 uIU/ML 11/29/2018 2:57 PM CDT [facility] Comment: HIGH DOSES OF BIOTIN MAY INTERFERE WITH THIS TEST RESULT. CORRELATION TO CLINICAL HISTORY AND PRESENTATION RECOMMENDED. 11/29/2018 12:0 5 PM CDT us Fabiano Mosley MD LABORATORY Final Result [facility] [address] [place] [address], [place] [phone] * (ABNORMAL) COMPREHENSIVE METABOLIC PANEL (11/29/2018 12:05 PM CDT) Pathologist [facility] GLUCOSE 101(H) 70 - 99 MG/DL 11/29/2018 2:57 PM CDT [facility] BUN 20(H) 7 - 18 MG/DL 11/29/2018 2:57 PM CDT [facility] CREATININE S/P/B 1.02 0.7 - 1.3 MG/DL 11/29/2018 2:57 PM CDT [facility] SODIUM S/P/B 139 136 - 145 MMOL/L 11/29/2018 2:57 PM CDT [facility] POTASSIUM S/P/B 4.5 3.5 - 5.1 MMOL/L 11/29/2018 2:57 PM CDT [facility] CHLORIDE S/P/B 107 100 - 108 MMOL/L 11/29/2018 2:57 PM CDT [facility] CO2 27.6 21 - 32 MMOL/L 11/29/2018 2:57 PM CDT [facility] CALCIUM S/P/B 8.7 8.5 - 10.1 MG/DL 11/29/2018 2:57 PM CDT [facility] BILIRUBIN TOTAL S/P/B 0.5 0.2 - 1.2 MG/DL 11/29/2018 2:57 PM CDT [facility] TOTAL PROTEIN S/P/B 6.7 6.4 - 8.2 G/DL 11/29/2018 2:57 PM CDT [facility] ALBUMIN S/P/B 3.7 3.4 - 5.0 G/DL 11/29/2018 2:57 PM CDT [facility] AST 12(L) 15 - 37 U/L 11/29/2018 2:57 PM CDT [facility] ALT 22 16 - 60 U/L 11/29/2018 2:57 PM CDT [facility] ALKALINE PHOSPHATASE S/P/B 106 50 - 136 U/L 11/29/2018 2:57 PM CDT [facility] ANION GAP 4.4(L) 5 - 15 MMOL/L 11/29/2018 2:57 PM CDT [facility] BUN CREATININE RATIO 19.6 6 - 26 11/29/2018 2:57 PM CDT [facility] A/G RATIO 1.2 1.0 - 2.0 RATIO 11/29/2018 2:57 PM CDT [facility] EGFR NON-AFR. AMER. 76(L) >90 ML/MIN/1.7 3 M2 11/29/2018 2:57 PM CDT [facility] EGFR AFR. AMER. 88(L) >90 ML/MIN/1.7 3 M2 11/29/2018 2:57 PM CDT [facility] Comment: NOTE: eGFR is not calculated for patients <18 years of age. This is an estimated GFR (CKD EPI) and should not be used for calculating drug doses. 11/29/2018 12:0 5 PM CDT us Fabiano Mosley MD LABORATORY Final Result [facility] [address] [place] [address], [place] [phone] * (ABNORMAL) CBC W/DIFF AUTOMATED (11/29/2018 12:05 PM CDT) [facility] Signature WBC 7.9 4.5 - 11.0 x10'3/uL 11/29/2018 2:06 PM CDT [facility] RBC 4.55(L) 4.70 - 6.10 x10'6/uL 11/29/2018 2:06 PM CDT [facility] HGB 14.8 14.0 - 18.0 G/DL 11/29/2018 2:06 PM CDT [facility] HCT 44.4 43.0 - 54.0 % 11/29/2018 2:06 PM CDT [facility] MCV 97.6(H) 80.0 - 94.0 FL 11/29/2018 2:06 PM CDT [facility] MCH 32.5(H) 27.0 - 31.0 PG 11/29/2018 2:06 PM CDT [facility] MCHC 33.3 32.0 - 36.0 G/DL 11/29/2018 2:06 PM CDT [facility] RDW 14.2 11.5 - 14.5 % 11/29/2018 2:06 PM CDT [facility] PLT 201 130 - 400 x10'3/uL 11/29/2018 2:06 PM CDT [facility] MPV 11.8 9.3 - 12.2 FL 11/29/2018 2:06 PM CDT [facility] DIFFERENTIAL TYPE AUTOMATED DIFFERENTIAL 11/29/2018 2:06 PM CDT [facility] NEUTROPHILS % 60.4 % 11/29/2018 2:06 PM CDT [facility] LYMPHOCYTES % 24.7 % 11/29/2018 2:06 PM CDT [facility] MONOCYTES % 9.2 % 11/29/2018 2:06 PM CDT [facility] EOSINOPHILS 4.1 % 11/29/2018 2:06 PM CDT [facility] BASOPHILS 1.0 % 11/29/2018 2:06 PM CDT [facility] IMMATURE GRANS % 0.6 % 11/30/19 19 2:06 PM CDT [facility] ABS. NEUTROPHILS TOTAL 4.74 1.80 - 7.70 x10'3/uL 11/29/2018 2:06 PM CDT [facility] ABS. LYMPHOCYTES 1.94 1.00 - 4.80 x10'3/uL 11/29/2018 2:06 PM CDT [facility] ABS. MONOCYTES 0.72 0.30 - 0.82 x10'3/uL 11/29/2018 2:06 PM CDT [facility] ABS. EOSINOPHILS 0.32 0.04 - 0.54 x10'3/uL 11/29/2018 2:06 PM CDT [facility] ABS. BASOPHILS 0.08 0.01 - 0.08 x10'3/uL 11/29/2018 2:06 PM CDT [facility] ABS. IMMATURE GRANULOCYTES 0.05 0.00 - 0.49 x10'3/uL 11/29/2018 2:06 PM CDT [facility] 11/29/2018 12:0 5 PM CDT us Fabiano Mosley MD LABORATORY Final Result [facility] [address] [place] [address], [place] [phone] * [id number] - EKG (In Clinic Complete tracing, interp & report) (11/29/2018) us Fabiano Mosley MD PROCEDURES-RESULTABLE Edited Re sult - Final documented in this encounter Visit Diagnoses Diagnosis Other fatigue- Primary Benign prostatic hyperplasia with urinary hesitancy Palpitations Anxiety Anxiety state, unspecified Hypotension, unspecified hypotension type Jittery feeling Vitamin D deficiency Unspecified vitamin D deficiency Bradycardia Other specified cardiac dysrhythmias documented in this encounter Care Teams Manager Stars Relationship Specialty Start Date End Date Fabiano Mosley MD PCP - General FAMILY PRACTICE 11/01/17 02/21/21 documented as of this encounter
--- OUTSIDE RECORDS SUMMARY | 2024-04-12 08:48 | XMS_ITS | Encounter Summary ---
Author Organization [facility] Address [address] [place] [address]. [place], [place] [address] [place] [address] Care Team Providers Care Fuel Cell Builder Name Role Phone Fabiano Mosley MD Primary Care Provider [phone] Derrick Herrera MD Unavailable [phone] Encounter Details Date Type Department Care Team (Latest Contact Info) Description 12/11/2018 Scan HEALTH INFO SRVCS Scanned, Documents Social [...] on filedocumented in this encounter Care Teams Fuel Cell Builder Relationship Specialty Start Date End Date Fabiano Mosley MD PCP - General FAMILY PRACTICE 11/01/17 02/21/21 Derrick Herrera MD [id number] [place] [address] EP Solid Waste Disposal Manager CARDIOVASCULAR DISEASE 12/11/18 documented as of this encounter
--- OUTSIDE RECORDS SUMMARY | 2024-04-12 08:48 | XMS_ITS | Encounter Summary ---
Author Organization [facility] Address [address] [place] [address]. [place], [place] [address] [place] [address] Care Team Providers Care Smelter Charger Name Role Phone Fabiano Mosley MD Primary Care Provider [phone] Encounter Details Date Type Department Care Team (Late st Contact Info) Description 08/29/2018 Orders Only [facility] Medical [address] [address] Tamika Page, RN Social History Tobacco Use Types Packs/Day Years [...] as of this encounter Visit Diagnoses Diagnosis Depression, unspecified depression type Stress Other psychological or physical stress, not elsewhere classified documented in this encounter Care Teams Smelter Charger Relationship Specialty Start Date End Date Fabiano Mosley MD PCP - General FAMILY PRACTICE 11/01/17 02/21/21 documented as of this encounter
--- OUTSIDE RECORDS SUMMARY | 2024-04-12 08:48 | XMS_ITS | Encounter Summary ---
Author Organization [facility] Address [address] [place] [address]. [place], [place] [address] [place] [address] Care Team Providers Care Director Of Marketing And Promotions Name Role Phone Fabiano Mosley MD Primary Care Provider [phone] Encounter Details Date Type Department Care Team (Late st Contact Info) Description 11/29/2018 11:55 AM CDT - 11/29/2018 11:59 PM CDT Hospital Encounter [facility] [place] [address] Fabiano Mosley MD [address] [place] [address] Discharge Disposition: Home or Self Care (Routine [...] Procedure Name Priority Date/Time Associated Diagnosis Comments COMPREHENSIVE METABOLIC PANEL Routine 11/29/2018 12:05 PM CDT Palpitations Anxiety CBC W/DIFF AUTOMATED Routine 11/29/2018 12:05 PM CDT Palpitations Anxiety THYROID STIM HORMONE TSH Routine 11/29/2018 12:05 PM CDT Palpitations Anxiety documented in this encounter Results * THYROID STIM HORMONE, TSH (11/29/2018 12:05 PM CDT) TSH 0.758 0.358 - 3.74 uIU/ML 11/29/2018 2:57 PM CDT [facility] Comment: HIGH DOSES OF BIOTIN MAY INTERFERE WITH THIS TEST RESULT. CORRELATION TO CLINICAL HISTORY AND PRESENTATION RECOMMENDED. 11/29/2018 12:0 5 PM CDT us Fabiano Mosley MD LABORATORY Final Result [facility] [address] [place] [address], [place] [phone] * (ABNORMAL) COMPREHENSIVE METABOLIC PANEL (11/29/2018 12:05 PM CDT) GLUCOSE 101(H) 70 - 99 MG/DL 11/29/2018 2:57 PM CDT [facility] BUN 20(H) 7 - 18 MG/DL 11/29/2018 2:57 PM CDT [facility] CREATININE S/P/B 1.02 0.7 - 1.3 MG/DL 11/29/2018 2:57 PM T [facility] SODIUM S/P/B 139 136 - 145 MMOL/L 11/29/2018 2:57 PM T [facility] POTASSIUM S/P/B 4.5 3.5 - 5.1 MMOL/L 11/29/2018 2:57 PM CDT [facility] CHLORIDE S/P/B 107 100 - 108 MMOL/L 11/29/2018 2:57 PM T [facility] CO2 27.6 21 - 32 MMOL/L 11/29/2018 2:57 PM CDT [facility] CALCIUM S/P/B 8.7 8.5 - 10.1 MG/DL 11/29/2018 2:57 PM CDT [facility] BILIRUBIN TOTAL S/P/B 0.5 0.2 - 1.2 MG/DL 11/29/2018 2:57 PM T [facility] TOTAL PROTEIN S/P/B 6.7 6.4 - 8.2 G/DL 11/29/2018 2:57 PM T [facility] ALBUMIN S/P/B 3.7 3.4 - 5.0 G/DL 11/29/2018 2:57 PM T [facility] AST 12(L) 15 - 37 U/L 11/29/2018 2:57 PM CDT [facility] ALT 22 16 - 60 U/L 11/29/2018 2:57 PM T [facility] ALKALINE PHOSPHATASE S/P/B 106 50 - 136 U/L 11/29/2018 2:57 PM T [facility] ANION GAP 4.4(L) 5 - 15 MMOL/L 11/29/2018 2:57 PM CDT [facility] BUN CREATININE RATIO 19.6 6 - 26 11/29/2018 2:57 PM CDT [facility] A/G RATIO 1.2 1.0 - 2.0 RATIO 11/29/2018 2:57 PM CDT [facility] EGFR NON-AFR. AMER. 76(L) >90 ML/MIN/1.7 3 M2 11/29/2018 2:57 PM CDT [facility] EGFR AFR. AMER. 88(L) >90 ML/MIN/1.7 3 M2 11/29/2018 2:57 PM CDT [facility] Comment: NOTE: eGFR is not calculated for patients <18 years of age. This is an estimated GFR (CKD EPI) and should not be used for calculating drug doses. 11/29/2018 12:0 5 PM CDT us Fabiano Mosley MD LABORATORY Final Result [facility] [address] [place] [address], [place] [phone] * (ABNORMAL) CBC W/DIFF AUTOMATED (11/29/2018 12:05 PM CDT) WBC 7.9 4.5 - 11.0 x10'3/uL 11/29/2018 2:06 PM CDT [facility] RBC 4.55(L) 4.70 - 6.10 x10'6/uL 11/29/2018 2:06 PM CDT [facility] HGB 14.8 14.0 - 18.0 G/DL 11/29/2018 2:06 PM CDT [facility] HCT 44.4 43.0 - 54.0 % 11/29/2018 2:06 PM CDT [facility] MCV 97.6(H) 80.0 - 94.0 FL 11/29/2018 2:06 PM CDT [facility] MCH 32.5(H) 27.0 - 31.0 PG 11/29/2018 2:06 PM CDT [facility] MCHC 33.3 32.0 - 36.0 G/DL 11/29/2018 2:06 PM CDT [facility] RDW 14.2 11.5 - 14.5 % 11/29/2018 2:06 PM CDT [facility] PLT 201 130 - 400 x10'3/uL 11/29/2018 2:06 PM CDT [facility] MPV 11.8 9.3 - 12.2 FL 11/29/2018 2:06 PM CDT [facility] DIFFERENTIAL TYPE AUTOMATED DIFFERENTIAL 11/29/2018 2:06 PM CDT [facility] NEUTROPHILS % 60.4 % 11/29/2018 2:06 PM CDT [facility] LYMPHOCYTES % 24.7 % 11/29/2018 2:06 PM CDT [facility] MONOCYTES % 9.2 % 11/29/2018 2:06 PM CDT [facility] EOSINOPHILS 4.1 % 11/29/2018 2:06 PM CDT [facility] BASOPHILS 1.0 % 11/29/2018 2:06 PM CDT [facility] IMMATURE GRANS % 0.6 % 11/30/19 19 2:06 PM CDT [facility] ABS. NEUTROPHILS TOTAL 4.74 1.80 - 7.70 x10'3/uL 11/29/2018 2:06 PM CDT [facility] ABS. LYMPHOCYTES 1.94 1.00 - 4.80 x10'3/uL 11/29/2018 2:06 PM CDT [facility] ABS. MONOCYTES 0.72 0.30 - 0.82 x10'3/uL 11/29/2018 2:06 PM CDT [facility] ABS. EOSINOPHILS 0.32 0.04 - 0.54 x10'3/uL 11/29/2018 2:06 PM CDT [facility] ABS. BASOPHILS 0.08 0.01 - 0.08 x10'3/uL 11/29/2018 2:06 PM CDT [facility] ABS. IMMATURE GRANULOCYTES 0.05 0.00 - 0.49 x10'3/uL 11/29/2018 2:06 PM CDT [facility] 11/29/2018 12:0 5 PM CDT us Fabiano Mosley MD LABORATORY Final Result Performing Organization Address City/State/[facility] Co de Phone Number [facility] [address] [place] [address], [place] [phone] documented in this encounter Visit Diagnoses Diagnosis Palpitations Anxiety Anxiety state, unspecified documented in this encounter Care Teams Director Of Marketing And Promotions Relationship Specialty Start Date End Date Fabiano Mosley MD PCP - General FAMILY PRACTICE 11/01/17 02/21/21 documented as of this encounter
--- OUTSIDE RECORDS SUMMARY | 2024-04-12 08:49 | XMS_ITS | Encounter Summary ---
Author Organization [facility] Address [address] [place] [address]. [place], [place] [id number] [place] [address] Care Team Providers Care Traffic Agent Name Role Phone Fabiano Mosley MD Primary Care Provider [phone] Reason for Referral * Imaging (Routine) - Closed Specialty Diagnoses / Procedures Referred By Contac t Referred To Contact Diagnoses Lung nodule, solitary Procedures CT CHEST WO CON Fabiano Mosley MD Phone: tel: fax: [place] [address] Phone: tel: Referral ID Status Reason Start Date Expiration Date Visits Re quested Visits Authorized [id number] Closed 07/15/2018 08/15/2019 1 1 Reason for Visit * Reason Comments Anxiety Depression Encounter Details Date Type Department Care Team (Late st Contact Info) Description 07/15/2018 1:00 PM CDT Office Visit [facility] Family Medicine [address] [address] Fabiano Mosley MD [address] [place] [address] Anxiety; Depression Social History Tobacco Use Types Packs/Day Years [...] Sign Reading Time Taken Comments Blood Pressure 122/70 07/15/2018 12:58 PM CDT Pulse 76 07/15/2018 12:58 PM CDT Temperature - - Respiratory Rate - - Oxygen Saturation 97% 07/15/2018 12:58 PM CDT Inhaled Oxygen Concentration - - Weight 72.4 kg (159 lb 9.6 oz) 07/15/2018 12:58 PM CDT Height - - Body Mass Index 21.06 02/04/2018 11:05 AM CDT documented in this encounter Progress Notes * Fabiano Mosley MD - 07/15/2018 1:00 PM CDT Images from the original note were not included. Office Progress Note Reason for Visit: No chief complaint on file. History of Present Illness: 68 yo M presents for follow up BPH -Tamulosin, may defer finasteride. Anxiety -Improved, will continue medications. Will repeat CT scan for lung nodule. ROS: Review of Systems Constitutional: Negative for chills and fever. HENT: Negative for sore throat. Respiratory: Negative for cough, shortness of breath and wheezing. Cardiovascular: Negative for chest pain, palpitations and leg swelling. Gastrointestinal: Negative for constipation, diarrhea, nausea and vomiting. Genitourinary: Negative for dysuria, frequency and urgency. Musculoskeletal: Negative for falls and joint pain. Skin: Negative for itching and rash. Neurological: Negative for headaches. Psychiatric/Behavioral: Negative for depression and suicidal ideas. The patient is not nervous/anxious. Medications: Current Outpatient Medications: ??? diclofenac sodium (VOLTAREN) 1 % gel, Apply 4 g topically 4 (four) times daily., Disp: 100 g, Rfl: 3 ??? escitalopram (LEXAPRO) 10 MG tablet, Take 1 tablet (10 mg total) by mouth daily., Disp: 90 tablet, Rfl: 0 ??? finasteride 5 MG tablet, Take 1 tablet (5 mg total) by mouth daily., Disp: 30 tablet, Rfl: 3 ??? tadalafil 5 MG tablet, Take 1 [...] file Gets together: Not on file Attends jainism service: Not on file Active member of [...] No distress. HENT: Head: Normocephalic and atraumatic. Neurological: He is alert. Skin: Skin is warm and dry. He is not diaphoretic. Psychiatric: He has a normal mood and affect. His behavior is normal. There were no vitals filed for this visit. Diagnoses/Impression: No diagnosis found. Recommendations and Plan: BPH -Tamulosin, may defer finasteride. Will follow up on Urology. Anxiety -Improved, will continue medications. Will repeat CT scan for lung nodule. Fatigue improved off finasteride No orders of the defined types were placed in this encounter. Cannot display discharge medications since this is not an admission. PCP: Fabiano Mosley MD 07/15/2018 documented in this encounter Plan of Treatment Not on file documented as of this encounter Results * CT CHEST WO CON (07/25/2018 5:37 PM CDT) Anatomical Region Laterality Modality Chest Computed Tomogra phy 07/26/2018 3:11 PM CDT Narrative 07/26/2018 3:20 PM CDT EXAM: CT CHEST WO CON DATE: 07/25/2018 COMPARISON: 04/25/2018 and the oldest available study from 11/01/2017. INDICATION: Follow-up lung nodules. TECHNIQUE: Noncontrast imaging. FINDINGS: Mild diffuse enlargement of the ascending aorta with a diameter of about 3.8 cm. ??Normal heart size. ??Small pericardial effusion. ??No pleural fluid. ??No enlarged lymph nodes on these noncontrast images. ??Patchy areas of probable pleural and parenchymal scarring in both apices are unchanged findings. ?? Small left upper lobe pulmonary nodule/density on image 14 is unchanged. ??Areas of focal peripheral lucency probably represent emphysema. ?? Flat, relatively triangular shaped pleural-based density posterior right lung is unchanged. ??This may involve portions of the upper and lower lobes being adjacent to the upper aspect of the major fissure. ?? Minimal mixed density findings along the posterior minor fissure are unchanged. ?? Small density anterior medially in the left lower lobe on image 91 is unchanged. IMPRESSION: Unchanged lung findings. A dose lowering technique was used for this procedure, which may include, but is not limited to, dose reduction technique, automated exposure control, iterative reconstruction, ALARA (As Low As Reasonably Achievable), or Image Gently techniques. Interpreted By: Pascual Vasquez MD, 07/26/2018 3:11 PM Procedure Note Pascual Vasquez MD - 07/26/2018 EXAM: CT CHEST WO CON DATE: 07/25/2018 COMPARISON: 04/25/2018 and the oldest available study from 11/01/2017. INDICATION: Follow-up lung nodules. TECHNIQUE: Noncontrast imaging. FINDINGS: Mild diffuse enlargement of the ascending aorta with a diameterof about 3.8 cm. Normal heart size. Small pericardial effusion. Nopleural fluid. No enlarged lymph nodes on these noncontrast images.Patchy areas of probable pleural and parenchymal scarring in both apicesare unchanged findings. Small left upper lobe pulmonary nodule/density on image 14 is unchanged.Areas of focal peripheral lucency probably represent emphysema. Flat, relatively triangular shaped pleural-based density posterior rightlung is unchanged. This may involve portions of the upper and lower lobesbeing adjacent to the upper aspect of the major fissure. Minimal mixed density findings along the posterior minor fissure areunchanged. Small density anterior medially in the left lower lobe on image 91 isunchanged. IMPRESSION: Unchanged lung findings. A dose lowering technique was used for this procedure, which may include,but is not limited to, dose reduction technique, automated exposurecontrol, iterative reconstruction, ALARA (As Low As ReasonablyAchievable), or Image Gently techniques. Interpreted By: Pascual Vasquez MD, 07/26/2018 3:11 PM us Fabiano Mosley MD CT Final Result documented in this encounter Visit Diagnoses Diagnosis Lung nodule, solitary- Primary Solitary pulmonary nodule Anxiety Anxiety state, unspecified Elevated PSA Elevated prostate specific antigen (PSA) Benign prostatic hyperplasia with lower urinary tract symptoms, symptom details unspecified Lung nodule, solitary Solitary pulmonary nodule documented in this encounter Care Teams Traffic Agent Relationship Specialty Start Date End Date Fabiano Mosley MD PCP - General FAMILY PRACTICE 7/19/18 11/8/21 documented as of this encounter
--- OUTSIDE RECORDS SUMMARY | 2024-04-12 08:49 | XMS_ITS | Encounter Summary ---
Author Organization [facility] Address [address] [place] [address]. [place], [place] [address] [place] [address] Care Team Providers Care Nba Player Name Role Phone Fabiano Mosley MD Primary Care Provider [phone] Reason for Visit * Reason Onset Date Comments Referral 06/13/2018 status of [facility] pr ocedure Encounter Details Date Type Department Care Team ([facility] st Contact Info) Description 06/13/[address] [facility] Family Medicine [address] [address] Fabiano Mosley MD [address] [place] [address] Referral (status of [facility] procedure) Social History Tobacco Use Types Packs/Day Years [...] Progress Notes * Niurka Bermudez MA - 06/13/2018 5:17 PM CST Lm that he would have to go for consultation first and they would call and see if insurance will need auth or will pay. ILE PROCESSING TECHNICIAN * Sangita Maurer - 06/13/2018 3:24 PM CST Patient would like a call back HAI to let him know if he was found to be eligible for the procedure at [facility]. Please call him at [phone]. Thanks. ILE PROCESSING TECHNICIAN documented in this encounter Plan of Treatment Not on file documented as of this encounter Visit Diagnoses Not on filedocumented in this encounter Care Teams Nba Player Relationship Specialty Start Date End Date Fabiano Mosley MD PCP - General FAMILY PRACTICE 11/01/17 02/21/21 documented as of this encounter
--- OUTSIDE RECORDS SUMMARY | 2024-04-12 08:49 | XMS_ITS | Encounter Summary ---
Author Organization [facility] Address [address] [place] [address]. [place] [address] Care Team Providers Care Senior Insight Manager Name Role Phone Fabiano Mosley MD Primary Care Provider [phone] Encounter Details Date Type Department Care Team (Latest Contact Info) Description 07/11/2018 3:50 PM CDT - 07/11/2018 11:59 PM CDT Hospital Encounter [facility] [place] [address] Landon Rubio MD [address] [place] [address] [place] [address] Discharge Disposition: Home or Self Care (Routine [...] this encounter Medications at Time of Discharge diclofenac sodium (VOLTAREN) 1 % gelIndications:Th oracic back pain, unspecified back pain laterality, unspecified chronicity Apply 4 g topically 4 (four) times daily. 100 g 3 05/20/2018 9 escitalopram (LEXAPRO) 10 MG tabletIndications :Depression, unspecified depression type,Stress Take 1 tablet (10 mg total) by mouth daily. 90 tablet 05/27/2018 9 finasteride 5 MG tabletIndications :Benign prostatic hyperplasia with urinary retention Take 1 tablet (5 mg total) by mouth daily. 30 tablet 3 02/28/2018 9 tadalafil 5 MG tabletIndications :Erectile dysfunction, unspecified erectile dysfunction type Take 1 tablet (5 mg total) by mouth daily. 30 tablet 3 06/10/2018 9 tadalafil 5 MG tablet CHEW AND SWALLOW ONE GUMMY ONCE DAILY. 2 02/22/2018 9 tamsulosin 0.4 MG CapIndications:Er ectile dysfunction Take 1 capsule (0.4 mg total) by mouth daily. 30 capsule 3 06/11/2018 9 documented as of this encounter Plan of Treatment Not on file documented as of this encounter Procedures Procedure Name Priority Date/Time Associated Diagnosis Comments PROSTATE SPECIFIC ANTIGEN,TOTAL Routine 07/11/2018 4:23 PM CDT Elevated PSA documented in this encounter Results * (ABNORMAL) PROSTATE SPECIFIC ANTIGEN,TOTAL (07/11/2018 4:23 PM CDT) PSA 6.90(H) <4.00 NG/ML 07/11/2018 4:58 PM CDT [facility] Comment: Test was performed using the Siemens method. ??Results obtained with other assay methods or kits cannot be used interchangeably with results obtained by the Siemens method. 07/11/2018 4:23 PM CDT Landon Rubio MD LABORATORY Final Result [facility] [address] [place] [address], [place] [phone] documented in this encounter Visit Diagnoses Diagnosis Elevated PSA Elevated prostate specific antigen (PSA) documented in this encounter Care Teams Senior Insight Manager Relationship Specialty Start Date End Date Fabiano Mosley MD PCP - General FAMILY PRACTICE 11/01/17 02/21/21 documented as of this encounter
--- OUTSIDE RECORDS SUMMARY | 2024-04-12 08:49 | XMS_ITS | Encounter Summary ---
Author Organization [facility] Address [address] [place] [address]. [place] [address] Care Team Providers Care Classifications Officer Cc/Cm Name Role Phone Fabiano Mosley MD Primary Care Provider [phone] Encounter Details Date Type Department Care Team (Latest Contact Info) Description 07/25/2018 Scan HEALTH INFO SRVCS Scanned, Documents Social [...] on filedocumented in this encounter Care Teams Classifications Officer Cc/Cm Relationship Specialty Start Date End Date Fabiano Mosley MD PCP - General FAMILY PRACTICE 11/01/17 02/21/21 documented as of this encounter
--- OUTSIDE RECORDS SUMMARY | 2024-04-12 08:49 | XMS_ITS | Encounter Summary ---
Author Organization [facility] Address [address] [place] [address]. [place] [address] Care Team Providers Care Casino Cashier Manager Name Role Phone Fabiano Mosley MD Primary Care Provider [phone] Reason for Visit * Reason Comments Ultrasound (SCAN) [facility]RO-[facility] ORIE PORTASCAN 3D Encounter Details Date Type Department Care Team ([facility] Contact Info) Description 07/16/2018 Scan HEALTH INFO SRVCS Scanned, Documents [facility]SC[facility]D) Social History Tobacco Use Types Packs/Day Years [...] Procedure Name Priority Date/Time Associated Diagnosis Comments ULTRASOUND GENERIC (SCAN ORDER) Routine 07/16/2018 documented in this encounter Results * ULTRASOUND (07/16/2018) Anatomical Region Laterality Modality Other us Documents Scanned SCANNING Final Result documented in this encounter Visit Diagnoses Not on filedocumented in this encounter Care Teams Casino Cashier Manager Relationship Specialty Start Date End Date Fabiano Mosley MD PCP - General FAMILY PRACTICE 11/01/17 02/21/21 documented as of this encounter
--- OUTSIDE RECORDS SUMMARY | 2024-04-12 08:49 | XMS_ITS | Encounter Summary ---
Author Organization [facility] Address [address] [place] [address]. [place], [place] [address] [place] [address] Care Team Providers Care Tower Erector Name Role Phone Fabiano Mosley MD Primary Care Provider [phone] Reason for Visit * Reason Onset Date Comments Follow Up Call 07/08/2018 Encounter Details Date Type Department Care Team (Late st Contact Info) Description 07/08/2018 Telephone [facility] Multispecialty [facility] - [address], [address] [place] [id number] Landon Rubio MD [address] [place] [address] [place] [id number] Follow Up Call Social History Tobacco Use Types Packs/Day Years [...] as of this encounter Progress Notes * Latasha Ortiz MA - 07/08/2018 1:35 PM CDT Received a request for a refill on Finasteride. Dr. Rubio would like pt to see a provider and get a PSA. I spoke to pt and he verbalized understanding. Sent his lab order to [facility] documented in this encounter Plan of Treatment Not on file documented as of this encounter Visit Diagnoses Not on filedocumented in this encounter Care Teams Tower Erector Relationship Specialty Start Date End Date Fabiano Mosley MD PCP - General FAMILY PRACTICE 11/01/17 02/21/21 documented as of this encounter
--- OUTSIDE RECORDS SUMMARY | 2024-04-12 08:49 | XMS_ITS | Encounter Summary ---
Author Organization [facility] Address [address] [place] [address]. [place] [address] Care Team Providers Care Machine Puller Over Name Role Phone Fabiano Mosley MD Primary Care Provider [phone] Reason for Visit * Reason Comments Outside Record (SCAN) RX PRE AUTH DENIED Encounter Details Date Type Department Care Team ([facility] st Contact Info) Description 06/11/2018 Scan HEALTH INFO SRVCS Scanned, Documents Outside Record (SCAN) (RX PRE AUTH DENIED) Social History Tobacco Use Types Packs/Day Years [...] on filedocumented in this encounter Care Teams Machine Puller Over Relationship Specialty Start Date End Date Fabiano Mosley MD PCP - General FAMILY PRACTICE 11/01/17 02/21/21 documented as of this encounter
--- OUTSIDE RECORDS SUMMARY | 2024-04-12 08:49 | XMS_ITS | Encounter Summary ---
Author Organization [facility] Address [address] [place] [address]. [place], [place] [id number] [place] [address] Care Team Providers Care Sheet Rock Hanger Name Role Phone Fabiano Mosley MD Primary Care Provider [phone] Reason for Visit * Reason Onset Date Comments Information 06/25/2018 Encounter Details Date Type Department Care Team (Late st Contact Info) Description 06/25/2018 Telephone [facility] Medicine [address] [address] Fabiano Mosley MD [address] [place] [address] Information Social History Tobacco Use Types Packs/Day Years [...] Progress Notes * Niurka Bermudez MA - 06/25/2018 1:00 PM CDT LM for pt that if he doesn't here from [facility] please contact me documented in this encounter Plan of Treatment Not on file documented as of this encounter Visit Diagnoses Not on filedocumented in this encounter Care Teams Sheet Rock Hanger Relationship Specialty Start Date End Date Fabiano Mosley MD PCP - General FAMILY PRACTICE 11/01/17 02/21/21 documented as of this encounter
--- OUTSIDE RECORDS SUMMARY | 2024-04-12 08:49 | XMS_ITS | Encounter Summary ---
Author Organization [facility] Address [address] [place] [address]. [place], [place] [address] [place] [address] Care Team Providers Care Agricultural Produce Sorter Name Role Phone Fabiano Mosley MD Primary Care Provider [phone] Reason for Referral * Behavioral Health (Urgent) - Closed Specialty Diagnoses / Procedures Referred By Contac t Referred To Contact Mental Health Diagnoses Depression, unspecified depression type Stress Fabiano Mosley MD Phone: tel: fax: Referral ID Status Reason Start Date Expiration Date V isits Requested Visits Authorized [id number] Closed Specialty Services 05/27/2018 06/26/2019 100 100 SING GUARD Reason for Visit * Reason Comments Follow Up Fatigue not feeling well maria cross Encounter Details Date Type Department Care Team (Late st Contact Info) Description 05/27/2018 2:20 PM CROSSING GUARD Office Visit [facility] Family Medicine [address] [phone] Fabiano Mosley MD [address] [place] [address] Follow Up; Fatigue (not feeling well overall) Social History Tobacco Use Types Packs/Day Years Used Date Smoking Tobacco: Every Day Cigarettes 0 Smokeless Tobacco: Never Alcohol Use Standard Drinks/Week Comments No 0 (1 standard drink = 0.6 oz pur e alcohol) AUDIT-C Answer Date Recorded Frequency of Alcohol Consumption Never 01/28/2018 Average Number of Drinks Not on file 10/15/2 018 Frequency of Binge Drinking Not on file 01/14 Sex and Gender Information Value Date Recorded Sex Assigned at Not on file Legal Sex Male 7:19 PM CDT Gender Identity Not on file Sexual Orientation Not on file documented as of this encounter Last Filed Vital Signs Vital Sign Reading Time Taken Comments Blood Pressure 130/80 05/27/2018 2:27 PM CROSSING GUARD Pulse 78 05/27/2018 2:27 PM CROSSING GUARD Temperature 36.6 ??C (97.8 ??F) 05/27/2018 2:27 PM CS T Respiratory Rate - - Oxygen Saturation 98% 05/27/2018 2:27 PM CROSSING GUARD Inhaled Oxygen Concentration - - Weight 70.8 kg (156 lb) 05/27/2018 2:27 PM CROSSING GUARD Height - - Body Mass Index 20.58 02/04/2018 11:05 AM CDT documented in this encounter Progress Notes * Fabiano Mosley MD - 05/27/2018 2:20 PM CST Images from the original note were not included. Office Progress Note Reason for Visit: No chief complaint on file. History of Present Illness: 68 yo M with extreme stress and anxiety. States klonopin helped significantly with shaky/jitteriness. 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 Anger towards people that have hurt him in past. Not sleeping well due to bph/chronic prostatitis, waking up through the night, seen by urologist and given procedure options but wants to look at possible PAE which referral is pending for. Pt works 7 days a week. Labs normal last year for working up his fatigue which appears to be secondary to how he is treating his body. Will send to psych, start lexapro, continue klonopin, labs ordered to ensure no other pathological process going on. ROS: Review of Systems Constitutional: Positive for malaise/fatigue. Negative for chills and fever. HENT: Negative for ear pain, hearing loss, sore throat and tinnitus. Eyes: Negative for blurred vision, double vision, photophobia and pain. Respiratory: Negative for cough, shortness of breath and wheezing. Cardiovascular: Negative for chest pain, palpitations and leg swelling. Gastrointestinal: Negative for abdominal pain, constipation, diarrhea, heartburn, nausea and vomiting. Decreased appetitie Genitourinary: Negative. Musculoskeletal: Negative. Negative for falls and joint pain. Skin: Negative for itching and rash. Neurological: Negative for dizziness, tingling, tremors and headaches. Psychiatric/Behavioral: Negative for depression and suicidal ideas. The patient is not nervous/anxious. Medications: Current Outpatient Medications: ??? clonazePAM 0.5 MG tablet, Take 1 tablet (0.5 mg total) by mouth 3 (three) times daily as neededfor Anxiety., Disp: 30 tablet, Rfl: 0 ??? diclofenac sodium (VOLTAREN) 1 % gel, Apply 4 g topically 4 (four) times daily., Disp: 100 g, Rfl: 3 ??? finasteride 5 MG tablet, Take 1 tablet (5 mg total) by mouth daily., Disp: 30 tablet, Rfl: 3 ??? tadalafil 5 MG tablet, Take 1 tablet by mouth daily., Disp: , Rfl: ??? tamsulosin 0.4 MG Cap, Take 0.4 mg by mouth daily., Disp: , Rfl: Allergies: No Known Allergies Medical History: Past Medical History: Diagnosis Date ??? Prostatitis Surgical History: Past Surgical History: Procedure Laterality Date ??? GI PROSTATE BIOPSY Social History: Social History Socioeconomic History ??? Marital status: Single Spouse name: Not on file ??? Number of children: Not on file ??? Years of education: Not on file ??? Highest education level: Not on file Social Needs ??? Financial resource strain: Not on file ??? Food insecurity - worry: Not on file ??? Food insecurity - inability: Not on file ??? Transportation needs - medical: Not on file ??? Transportation needs - non-medical: Not on file Occupational History ??? Not on file Tobacco Use ??? Smoking status: Current Every Day Smoker Packs/day: 0.50 Years: 0.00 Pack years: 0.00 Types: Cigarettes ??? Smokeless tobacco: Never Used Substance and Sexual Activity ??? Alcohol use: No Frequency: Never ??? Drug use: Not on file ??? Sexual activity: Not on file Other Topics Concern ??? Not on file Social History Narrative ??? Not on file Family History: No family history on file. PE: Physical Exam Constitutional: He is oriented to person, place, and time. He appears well- developed and well-nourished. No distress. HENT: Head: Normocephalic and atraumatic. Eyes: Pupils are equal, round, and reactive to light. Right eye exhibits no discharge. Left eye exhibits no discharge. Cardiovascular: Normal rate. Pulmonary/Chest: Effort normal. Abdominal: Soft. He exhibits no distension. Neurological: He is alert and oriented to person, place, and time. Skin: Skin is warm and dry. He is not diaphoretic. Psychiatric: He has a normal mood and affect. His behavior is normal. There were no vitals filed for this visit. Diagnoses/Impression: No diagnosis found. Recommendations and Plan: Pt with extreme stress and anxiety. States klonopin helped significantly with shaky/jitteriness. 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 Anger towards people that have hurt him in past. Not sleeping well due to bph/chronic prostatitis, waking up through the night, seen by urologist and given procedure options but wants to look at possible PAE which referral is pending for. Pt works 7 days a week. Labs normal last year for working up his fatigue which appears to be secondary to how he is treating his body. Will send to psych, start lexapro, continue klonopin, labs ordered to ensure no other pathological process going on. No orders of the defined types were placed in this encounter. Cannot display discharge medications since this is not an admission. PCP: Fabiano Mosley MD 05/27/2018 SING GUARD documented in this encounter Plan of Treatment Scheduled Orders Name Type Priority Associated Diagnoses Orde r Schedule VENIPUNC ARM DRAW Procedures Routine Weight loss Ordered: 05/27/2018 Scheduled Referrals Name Type Priority Associated Diagnoses Orde r Schedule Ambulatory Referral to Psychology Referral Routine Depression, unspecified depression type Stress Ordered: 05/27/2018 documented as of this encounter Results * MAGNESIUM (05/27/2018 3:02 PM CROSSING GUARD) MAGNESIUM 2.1 1.8 - 2.4 MG/DL 05/27/2018 8:44 PM CROSSING GUARD [facility] 05/27/2018 3:02 PM CROSSING GUARD us Fabiano Mosley MD LABORATORY Final Result [facility] [address] [place] [address], [place] [phone] * (ABNORMAL) C-REACTIVE PROTEIN (05/27/2018 3:02 PM CROSSING GUARD) [facility] C-REACTIVE PROTEIN 0.36(H) <0.29 mg/dL 05/27/2018 8:44 PM CROSSING GUARD [facility] 05/27/2018 3:02 PM CROSSING GUARD us Fabiano Mosley MD LABORATORY Final Result Performing Organization Address [facility]/ZIP Co de Phone Number [facility] [address] [place] [address], [place] [phone] * SED RATE, ERYTHROCYTE (ESR) (05/27/2018 3:02 PM CROSSING GUARD) Pathologist [facility] ESR 18 0 - 20 MM/HR 2018 9:30 AM CROSSING GUARD [facility] 05/27/2018 3:02 PM CROSSING GUARD us Fabiano Mosley MD LABORATORY Final Result [facility] [address] [place] [address], [place] [phone] * TSH W/REFLEX (05/27/2018 3:02 PM CROSSING GUARD) Pathologist [facility] TSH 0.526 0.358 - 3.74 uIU/ML 05/27/2018 8:44 PM CROSSING GUARD [facility] Comment: HIGH DOSES OF BIOTIN MAY INTERFERE WITH THIS TEST RESULT. CORRELATION TO CLINICAL HISTORY AND PRESENTATION RECOMMENDED. FREE T4 NOT INDICATED 05/27/2018 3:02 PM CROSSING GUARD Fabiano Mosley MD LABORATORY Final Result [facility] [address] [place] [address], documented in this encounter Visit Diagnoses Diagnosis Weight loss- Primary Loss of weight Depression, unspecified depression type Stress Other psychological or physical stress, not elsewhere classified documented in this encounter Care Teams Agricultural Produce Sorter Relationship Specialty Start Date End Date Fabiano Mosley MD PCP - General FAMILY PRACTICE 11/01/17 02/21/21 documented as of this encounter
--- OUTSIDE RECORDS SUMMARY | 2024-04-12 08:49 | XMS_ITS | Encounter Summary ---
Author Organization [facility] Address [facility] [facility]. [place], [place] [address] [place] [address] Care Team Providers Care Director Of Dance Name Role Phone Fabiano Mosley MD Primary Care Provider [phone] Encounter Details Date Type Department Care Team (Late st Contact Info) Description 07/08/2018 Orders Only [facility] Multispecialty Care - [facility] [address] [facility], [address] [place] [phone] Landon Rubio MD [address] [place] [address] LEIF JOHNSON [id number] Social History Tobacco Use Types Packs/Day Years [...] documented as of this encounter Results * (ABNORMAL) PROSTATE SPECIFIC ANTIGEN,TOTAL (07/11/2018 4:23 PM CDT) PSA 6.90(H) <4.00 NG/ML 07/11/2018 4:58 PM CDT [facility] Comment: Test was performed using the Siemens method. ??Results obtained with other assay methods or kits cannot be used interchangeably with results obtained by the Siemens method. 07/11/2018 4:23 PM CDT Landon Rubio MD LABORATORY Final Result [facility] [address] [place] [address], [place] [phone] documented in this encounter Visit Diagnoses Diagnosis Elevated PSA- Primary Elevated prostate specific antigen (PSA) documented in this encounter Care Teams Director Of Dance Relationship Specialty Start Date End Date Fabiano Mosley MD PCP - General FAMILY PRACTICE 11/01/17 02/21/21 documented as of this encounter
--- OUTSIDE RECORDS SUMMARY | 2024-04-12 08:49 | XMS_ITS | Encounter Summary ---
Author Organization [facility] Address [address] [place] [address]. [place], [place] [address] [place] [address] Care Team Providers Care Babysitter Name Role Phone Fabiano Mosley MD Primary Care Provider Reason for Visit * Reason Onset Date Comments Referral 06/19/2018 Encounter Details Date Type Department Care Team (Late st Contact Info) Description 06/19/2018 Telephone [facility] [facility] [address] [phone] Fabiano Mosley MD [address] [place] [address] Referral Social History Tobacco Use Types Packs/Day Years [...] Progress Notes * Niurka Bermudez MA - 06/20/2018 12:07 PM CST Lm for pt. To cb re: referral, sent to [facility] NT MASON * Torrie Harding - 06/19/2018 3:31 PM CST Can you please call patient regarding his Urology referral to [facility]? He possibly would like to switchit to [facility] NT MASON documented in this encounter Plan of Treatment Not on file documented as of this encounter Visit Diagnoses Not on filedocumented in this encounter Care Teams Babysitter Relationship Specialty Start Date End Date Fabiano Mosley MD PCP - General FAMILY PRACTICE 11/01/17 02/21/21 documented as of this encounter
--- OUTSIDE RECORDS SUMMARY | 2024-04-12 08:49 | XMS_ITS | Encounter Summary ---
Author Organization [facility] Address [address] [place] [address]. [place], [place] [address] [place] [address] Care Team Providers Care It Technical Specialist Name Role Phone Fabiano Mosley MD Primary Care Provider [phone] Reason for Visit * Reason Onset Date Comments Referral 06/11/2018 Encounter Details Date Type Department Care Team ([facility] st Contact Info) Description 06/11/2018 Telephone [facility] Medicine [address] [phone] Fabiano Mosley MD [address] [place] [address] Referral Social History Tobacco Use [...] Notes * Niurka Bermudez MA - 06/13/2018 8:53 AM CST Called pt. And lm that [facility] to call him for appt. EMAN * Fabiano Mosley MD - 06/11/2018 2:44 PM CST Did we ever find out about his referral. I told him we would call with update. EMAN documented in this encounter Plan of Treatment Not on file documented as of this encounter Visit Diagnoses Not on filedocumented in this encounter Care Teams It Technical Specialist Relationship Specialty Start Date End Date Fabiano Mosley MD PCP - General FAMILY PRACTICE 11/01/17 02/21/21 documented as of this encounter
--- OUTSIDE RECORDS SUMMARY | 2024-04-12 08:49 | XMS_ITS | Encounter Summary ---
Author Organization [facility] Address [address] [place] [address]. [place], [place] [address] [place] [address] Care Team Providers Care Rock Mason Name Role Phone Fabiano Mosley MD Primary Care Provider [phone] Reason for Visit * Reason Comments Follow Up * Consultation (Routine) - Closed Specialty Diagnoses / Procedures Referred By Contac t Referred To Contact UROLOGY Diagnoses Benign prostatic hyperplasia, unspecified whether lower urinary tract symptoms present Fabiano Mosley MD Phone: tel: fax: [facility] [id number] [place] [phone] Phone: tel: fax: Referral ID Status Reason Start Date Expiration Date V isits Requested Visits Authorized [id number] Closed Specialty Services 05/20/2018 06/20/2019 100 100 Encounter Details Date Type Department Care Team (Late st Contact Info) Description 07/16/2018 1:40 PM CDT Office Visit [facility] Multispecialty Care - [facility] [address] [facility] [place] [address] Khadijah Vogt APNP [address] [address] Follow Up Social History Tobacco Use Types Packs/Day Years [...] Sign Reading Time Taken Comments Blood Pressure 124/70 07/16/2018 1:38 PM CDT Pulse 73 07/16/2018 1:38 PM CDT Temperature 36.8 ??C (98.2 ??F) 07/16/2018 1:38 PM CD T Respiratory Rate - - Oxygen Saturation - - Inhaled Oxygen Concentration - - Weight 70.3 kg (155 lb) 07/16/2018 1:38 PM CDT Height 185.4 cm (6' 1 ) 07/16/2018 1:38 PM CDT Body Mass Index 20.45 07/16/2018 1:38 PM CDT documented in this encounter Progress Notes * MEENAKSHI Sifuentes - 07/16/2018 1:40 PM CDT Images from the original note were not included. Urology Office Note Reason for Visit: Follow Up History of Present Illness: HPI 68-year-old male with a history of BPH, elevated PSA and chronic prostatitis presents for follow-upwith previsit PSA level. His previsit PSA is 6.9 which compares to 20.7 in February of last year. He did undergo prostate biopsy in December of last year but unfortunately there were issues with tissue processing. However, no malignancy was identified. He was treated with antibiotics. He also underwent cystoscopy in January of last year for obstructive and irritative lower urinary tract symptoms. Cystoscopy revealed a large obstructing prostate and bladder trabeculations. Laser vaporization was discussed but he wanted to consider his options. Approximately 1 month later he had an episode of urinary retention. Presented to [facility] for this. Campos was later removed in our office. He was initiated on finasteride. Currently tells mehis overall voiding pattern has remained stable. His he has intermittent episodes of both obstructive and irritative symptoms. He does not have symptoms every day. No episodes of gross hematuria. Intermittent episodes of dysuria but nine today. No recent fevers or chills. No renal colic pain. Has not required treatment for any UTIs. Continues to take Flomax as well as Cialis daily. ROS: Review of Systems Constitutional: Negative for chills, fever, malaise/fatigue and weight loss. Respiratory: Negative for cough and shortness of breath. Cardiovascular: Negative for chest pain and palpitations. Gastrointestinal: Negative for abdominal pain, nausea and vomiting. Genitourinary: Positive for dysuria, frequency and urgency. Negative for flank pain and hematuria. Neurological: Negative for dizziness. Psychiatric/Behavioral: The patient is not nervous/anxious. Medications: Current Outpatient Medications: ??? finasteride 5 MG tablet, Take 1 tablet (5 mg total) by mouth daily., Disp: 30 tablet, Rfl: 5 ??? diclofenac sodium (VOLTAREN) 1 % gel, [...] Rfl: 3 Allergies: No Known Allergies Medical Hx: Past Medical History: Diagnosis Date ??? Prostatitis Surgical Hx: Past Surgical History: Procedure Laterality Date ??? GI PROSTATE BIOPSY Social Hx: Social History Socioeconomic History ??? Marital status: [...] file Gets together: Not on file Attends sikh service: Not on file Active member of [...] History Narrative ??? Not on file Family Hx: No family history on file. Physical Exam: Physical Exam Constitutional: He is oriented to person, place, and time and well-developed, well-nourished, and in no distress. No distress. HENT: Head: Normocephalic and atraumatic. Neck: Neck supple. Abdominal: Soft. He exhibits no distension. There is no tenderness. Neurological: He is alert and oriented to person, place, and time. Gait normal. Skin: He is not diaphoretic. Psychiatric: Mood, memory, affect and judgment normal. Nursing note and vitals reviewed. Vitals: Filed Vitals: 07/16/18 1338 BP: 124/70 Pulse: 73 Temp: 98.2 ??F (36.8 ??C) TempSrc: Temporal Weight: 70.3 kg (155 lb) Height: 6' 1 (1.854 m) Recent Labs: WBC (x10'3/uL) Date Value 05/20/2018 6.4 HGB (G/DL) Date Value 05/20/2018 14.0 PLT (x10'3/uL) Date Value 05/20/2018 202 SODIUM (MMOL/L) Date Value 05/20/2018 141 POTASSIUM (MMOL/L) Date Value 05/20/2018 4.1 CHLORIDE (MMOL/L) Date Value 05/20/2018 107 CO2 (MMOL/L) Date Value 05/20/2018 30.0 ANION GAP (MMOL/L) Date Value 05/20/2018 8.1 BUN (MG/DL) Date Value 05/20/2018 16 CREATININE (MG/DL) Date Value 05/20/2018 0.91 BUN CREATININE RATIO (no units) Date Value 05/20/2018 17.6 eGFR Non-Afr. Amer. (ML/MIN/1.73 M2) Date Value 05/20/2018 88 eGFR Afr. Amer. (ML/MIN/1.73 M2) Date Value 05/20/2018 >90 GLUCOSE (MG/DL) Date Value 05/20/2018 106 CALCIUM (MG/DL) Date Value 05/20/2018 8.9 TOTAL PROTEIN (G/DL) Date Value 05/20/2018 6.8 ALBUMIN (G/DL) Date Value 05/20/2018 3.8 TOTAL BILIRUBIN (MG/DL) Date Value 05/20/2018 0.8 ALK PHOS (U/L) Date Value 05/20/2018 121 AST (U/L) Date Value 05/20/2018 11 ALT (U/L) Date Value 05/20/2018 17 No results found for this or any previous visit. Lab Results Component Value Date PSA 6.90 (H) 07/11/2018 Recent Image: N/a Procedure: PVR with bladder scan 5 cc Diagnoses/Impression: 1. Benign prostatic hyperplasia with urinary hesitancy finasteride 5 MG tablet URINALYSIS AUTO DIP MEASURE.PST.VOID.URINE 2. Elevated PSA Recommendations and Plan: 1. Benign prostatic hyperplasia with urinary hesitancy - finasteride 5 MG tablet; Take 1 tablet (5 mg total) by mouth daily. Dispense: 30 tablet; Refill: 5 - URINALYSIS AUTO DIP - MEASURE.PST.VOID.URINE 2. Elevated PSA He is found to be emptying well today and his voiding pattern has remained stable. He has not required treatment for any UTIs. He is thinking about considering prostatic artery embolization for BPH treatment. Tells me is not definitely made his decision and would like to continue to monitor his voiding pattern for now. He will follow-up in 3 months for continued assessment. MEENAKSHI SIFUENTES 07/16/2018 Cosigned by Landon Rubio MD at 07/17/2018 11:16 AM CDT documented in this encounter Plan of Treatment Scheduled Orders Name Type Priority Associated Diagnoses Orde r Schedule MEASURE.PST.VOID.UR INE Procedures Routine Benign prostatic hyperplasia with urinary hesitancy Ordered: 07/16/2018 documented as of this encounter Procedures Procedure Name Priority Date/Time Associated Diagnosis Comments URINALYSIS AUTO DIP Routine 07/16/2018 2 :05 PM CDT Benign prostatic hyperplasia with urinary hesitancy documented in this encounter Results * URINALYSIS AUTO DIP (07/16/2018 2:05 PM CDT) COLOR (U) YELLOW [facility] [address] (3), [place] TRANSPARENCY CLEAR [facility] (3), [place] GLUCOSE (U) NEGATIVE NEGATIVE MG/DL [facility] (3), [place] BILIRUBIN (U) NEGATIVE NEGATIVE [facility] (3), [place] KETONES MG/DL (U) NEGATIVE NEGATIVE MG/DL [facility] (3), [place] SPECIFIC GRAVITY (U) 1.025 1.001 - 1.[address] (3), [place] BLOOD (U) NEGATIVE NEGATIVE [facility] (3), [place] U PH 5.5 5.0 - 9.[address] [facility] (3), [place] PROTEIN (U) TRACE NEGATIVE mg/dL [facility] [address] (3), [place] UROBILINOGEN 0.2 0.2 - 1.0 EU/dL = mg/dL [facility] [address] (3), [place] NITRITES NEGATIVE NEGATIVE MG/DL [facility] [address] (3), [place] LEUKOCYTES (U) NEGATIVE NEGATIVE [facility] (3), [place] URINE SPECIMEN OBTAINED BY CLEAN CATCH PROCEDURE / Unknown 07/16/2018 2:05 PM CDT Khadijah ARRIETA URINE ORDERABLES Final Result [facility] (3), [facility] [address] [facility] [address] [place] [address], documented in this encounter Visit Diagnoses Diagnosis Benign prostatic hyperplasia with urinary hesitancy- Primary Elevated PSA Elevated prostate specific antigen (PSA) documented in this encounter Care Teams Rock Mason Relationship Specialty Start Date End Date Fabiano Mosley MD PCP - General FAMILY PRACTICE 11/01/17 02/21/21 documented as of this encounter
--- OUTSIDE RECORDS SUMMARY | 2024-04-12 08:49 | XMS_ITS | Encounter Summary ---
Author Organization [facility] Address [address] [place] [address] [address] Care Team Providers Care Licensing Director Name Role Phone Fabiano Mosley MD Primary Care Provider [phone] Encounter Details Date Type Department Care Team (Late st Contact Info) Description 05/20/2018 6:41 PM INSTALLATION AND SERVICE TECHNICIAN - 05/20/2018 11:[address] [facility] Hospital Encounter [facility] [address] Fabiano Mosley MD [address] [place] [address] Discharge Disposition: Home or Self [...] this encounter Medications at Time of Discharge clonazePAM 0.5 MG tabletIndications :Jittery feeling,Shaky,Anx iety Take 1 tablet (0.5 mg total) by mouth 3 (three) times daily as needed for Anxiety. 30 tablet 05/20/2018 9 diclofenac sodium (VOLTAREN) 1 % gelIndications:Th oracic back pain, unspecified back pain laterality, unspecified chronicity Apply 4 g topically 4 (four) times daily. 100 g 3 05/20/2018 9 finasteride 5 MG tabletIndications :Benign prostatic hyperplasia with urinary retention Take 1 tablet (5 mg total) by mouth daily. 30 tablet 3 02/28/2018 9 tadalafil 5 MG tablet Take 1 tablet by mouth daily. 10/11/2017 9 tadalafil 5 MG tablet CHEW AND SWALLOW ONE GUMMY ONCE DAILY. 2 02/22/2018 9 tamsulosin 0.4 MG Cap Take 0.4 mg by mouth daily. 9 documented as of this encounter Plan of Treatment Not on file documented as of this encounter Procedures Procedure Name Priority Date/Time Associated Diagnosis Comments URINE BACTERIA CULTURE Routine 9 2:00 PM INSTALLATION AND SERVICE TECHNICIAN Leukocytes in urine COMPREHENSIVE METABOLIC PANEL Routine 05/20/2018 2:00 PM INSTALLATION AND SERVICE TECHNICIAN Jittery feeling Shaky CBC W/DIFF AUTOMATED Routine 05/20/2018 2:00 PM INSTALLATION AND SERVICE TECHNICIAN Jittery feeling Shaky documented in this encounter Results * (ABNORMAL) CBC W/DIFF AUTOMATED (05/20/2018 2:00 PM INSTALLATION AND SERVICE TECHNICIAN) WBC 6.4 4.5 - 11.0 x10'3/uL 05/20/2018 7:09 PM INSTALLATION AND SERVICE TECHNICIAN [facility] RBC 4.37(L) 4.70 - 6.10 x10'6/uL 05/20/2018 7:09 PM INSTALLATION AND SERVICE TECHNICIAN [facility] HGB 14.0 14.0 - 18.0 G/DL 05/20/2018 7:09 PM [facility] HCT 42.7(L) 43.0 - 54.0 % 05/20/2018 7:09 PM [facility] MCV 97.7(H) 80.0 - 94.0 FL 05/20/2018 7:09 PM [facility] MCH 32.0(H) 27.0 - 31.0 PG 05/20/2018 7:09 PM [facility] MCHC 32.8 32.0 - 36.0 G/DL 05/20/2018 7:09 PM [facility] RDW 13.2 11.5 - 14.5 % 05/20/2018 7:09 PM [facility] PLT 202 130 - 400 x10'3/uL 05/20/2018 7:09 PM [facility] MPV 11.6 9.3 - 12.2 FL 05/20/2018 7:09 PM [facility] DIFFERENTIAL TYPE AUTOMATED DIFFERENTIAL 05/20/2018 7:09 PM [facility] NEUTROPHILS % 63.2 % 05/20/2018 7:09 PM [facility] LYMPHOCYTES % 20.4 % 05/20/2018 7:09 PM [facility] MONOCYTES % 9.3 % 05/20/2018 7:09 PM [facility] EOSINOPHILS 5.7 % 05/20/2018 7:09 PM [facility] BASOPHILS 1.1 % 05/20/2018 7:09 PM [facility] IMMATURE GRANS % 0.3(H) 0 % 05/20/19 19 7:09 PM [facility] ABS. NEUTROPHILS TOTAL 4.03 1.80 - 7.70 x10'3/uL 05/20/2018 7:09 PM [facility] ABS. LYMPHOCYTES 1.30 1.00 - 4.80 x10'3/uL 05/20/2018 7:09 PM [facility] ABS. MONOCYTES 0.59 0.30 - 0.82 x10'3/uL 05/20/2018 7:09 PM [facility] ABS. EOSINOPHILS 0.36 0.04 - 0.54 x10'3/uL 05/20/2018 7:09 PM [facility] ABS. BASOPHILS 0.07 0.01 - 0.08 x10'3/uL 05/20/2018 7:09 PM [facility] ABS. IMMATURE GRANULOCYTES 0.02 0.00 - 0.03 x10'3/uL 05/20/2018 7:09 PM [facility] 05/20/2018 2:00 PM INSTALLATION AND SERVICE TECHNICIAN us Fabiano Mosley MD LABORATORY Final Result [facility] [address] [place] [address], [place] [phone] * (ABNORMAL) COMPREHENSIVE METABOLIC PANEL (05/20/2018 2:00 PM INSTALLATION AND SERVICE TECHNICIAN) GLUCOSE 106(H) 70 - 99 MG/DL 05/20/2018 7:18 PM [facility] BUN 16 7 - 18 MG/DL 05/20/2018 7:18 PM [facility] CREATININE S/P/B 0.91 0.7 - 1.3 MG/DL 05/20/2018 7:18 PM [facility] SODIUM S/P/B 141 136 - 145 MMOL/L 05/20/2018 7:18 PM [facility] POTASSIUM S/P/B 4.1 3.5 - 5.1 MMOL/L 05/20/2018 7:18 PM [facility] CHLORIDE S/P/B 107 100 - 108 MMOL/L 05/20/2018 7:18 PM [facility] CO2 30.0 21 - 32 MMOL/L 05/20/2018 7:18 PM [facility] CALCIUM S/P/B 8.9 8.5 - 10.1 MG/DL 05/20/2018 7:18 PM [facility] BILIRUBIN TOTAL S/P/B 0.8 0.2 - 1.2 MG/DL 05/20/2018 7:18 PM [facility] TOTAL PROTEIN S/P/B 6.8 6.4 - 8.2 G/DL 05/20/2018 7:18 PM [facility] ALBUMIN S/P/B 3.8 3.4 - 5.0 G/DL 05/20/2018 7:18 PM [facility] AST 11(L) 15 - 37 U/L 05/20/2018 7:18 PM [facility] ALT 17 16 - 60 U/L 05/20/2018 7:18 PM [facility] ALKALINE PHOSPHATASE S/P/B 121 50 - 136 U/L 05/20/2018 7:18 PM [facility] ANION GAP 8.1 8 - 20 MMOL/L 05/20/2018 7:18 PM [facility] BUN CREATININE RATIO 17.6 6 - 26 05/20/2018 7:18 PM [facility] A/G RATIO 1.3 1.0 - 2.0 RATIO 05/20/2018 7:18 PM [facility] EGFR NON-AFR. AMER. 88(L) >90 ML/MIN/1.7 3 M2 05/20/2018 7:18 PM [facility] EGFR AFR. AMER. >90 >90 ML/MIN/1.7 3 M2 05/20/2018 7:18 PM [facility] Comment: NOTE: eGFR is not calculated for patients <18 years of age. This is an estimated GFR (CKD EPI) and should not be used for calculating drug doses. 05/20/2018 2:00 PM INSTALLATION AND SERVICE TECHNICIAN us Fabiano Mosley MD LABORATORY Final Result Performing Organization Address [facility] Co de Phone Number [facility] [address] [place] [address], [place] [phone] * CULTURE URINE (05/20/2018 2:00 PM INSTALLATION AND SERVICE TECHNICIAN) SPEC DESCRIPTION URINE CLEAN CATCH 05/20/2018 6:42 PM INSTALLATION AND SERVICE TECHNICIAN [facility] SPECIAL REQUESTS NO SPECIAL REQUEST 05/20/2018 6:42 PM INSTALLATION AND SERVICE TECHNICIAN [facility] CULTURE RESULT 10,000-49,000 COL/ML STREPTOCOCCUS VIRIDANS SPECIES SUSCEPTIBILTY NOT ROUTINELY PERFORMED. SAVING ISOLATE FOR 5 DAYS. CONTACT MICROBIOLOGY DEPARTMENT IF FURTHER WORKUP IS INDICATED. 05/22/2018 7:42 AM INSTALLATION AND SERVICE TECHNICIAN [facility] URINE SPECIMEN OBTAINED BY CLEAN CATCH PROCEDURE / Unknown 05/20/2018 2:00 PM INSTALLATION AND SERVICE TECHNICIAN 05/20/2018 6:46 PM INSTALLATION AND SERVICE TECHNICIAN us Fabiano Mosley MD MICROBIOLOGY - GENERAL ORDERABL ES Final Result Performing Organization Address [facility] de Phone Number [facility] [address] [place] [address], [place] [phone] documented in this encounter Visit Diagnoses Diagnosis Leukocytes in urine Other nonspecific finding on examination of urine Jittery feeling Shaky Abnormal involuntary movements documented in this encounter Care Teams Licensing Director Relationship Specialty Start Date End Date Fabiano Mosley MD PCP - General FAMILY PRACTICE 11/01/17 02/21/21 documented as of this encounter
--- OUTSIDE RECORDS SUMMARY | 2024-04-12 08:49 | XMS_ITS | Encounter Summary ---
Author Organization [facility] Address [address] [place] [address]. [place], [place] [address] [place] [address] Care Team Providers Care Fermenting Cellar Dropper Name Role Phone Fabiano Mosley MD Primary Care Provider [phone] Reason for Visit * Reason Onset Date Comments Results 05/21/2018 Encounter Details Date Type Department Care Team ([facility] st Contact Info) Description 05/21/2018 Telephone [facility] Medical [facility] Medicine [address] [address] Fabiano Mosley MD [address] [place] [address] Results Social History Tobacco Use Types Packs/Day Years [...] Progress Notes * Niurka Bermudez MA - 05/21/2018 2:51 PM CST NELSON for pt. About his results TING WORKER * Niurka Bermudez MA - 05/21/2018 2:51 PM CST ----- Message from Fabiano Mosley MD sent at 05/21/2018 6:26 AM PAINTING WORKER ----- Please inform patient that labs were relatively normal. TING WORKER documented in this encounter Plan of Treatment Not on file documented as of this encounter Visit Diagnoses Not on filedocumented in this encounter Care Teams Fermenting Cellar Dropper Relationship Specialty Start Date End Date Fabiano Mosley MD PCP - General FAMILY PRACTICE 11/01/17 02/21/21 documented as of this encounter
--- OUTSIDE RECORDS SUMMARY | 2024-04-12 08:49 | XMS_ITS | Encounter Summary ---
Author Organization [facility] Address [address] [place] [address]. [place] [address] Care Team Providers Care Real Estate Broker Associate Name Role Phone Fabiano Mosley MD Primary Care Provider [phone] Encounter Details Date Type Department Care Team [...] on filedocumented in this encounter Care Teams Real Estate Broker Associate Relationship Specialty Start Date End Date Fabiano Mosley MD PCP - General FAMILY PRACTICE 11/01/17 02/21/21 documented as of this encounter
--- OUTSIDE RECORDS SUMMARY | 2024-04-12 08:49 | XMS_ITS | Encounter Summary ---
Author Organization [facility] Address [address] [place] [address]. [place], [place] [address] [place] [address] Care Team Providers Care C Java Developer Name Role Phone Fabiano Mosley MD Primary Care Provider [phone] Encounter Details Date Type Department Care Team (Late st Contact Info) Description 05/27/2018 6:45 PM PINION POLISHER - 05/27/2018 11:59 PM [facility] Hospital Encounter [facility] [address] Fabiano Mosley MD [address] [place] [address] Discharge Disposition: Home or Self [...] Procedure Name Priority Date/Time Associated Diagnosis Comments TSH W/REFLEX Routine 05/27/2018 3:02 PM PINION POLISHER Weight loss SED RATE, ERYTHROCYTE (ESR) Routine 05/27/2018 3:02 PM PINION POLISHER Weight loss C-REACTIVE PROTEIN Routine 05/27/2018 3: 02 PM PINION POLISHER Weight loss MAGNESIUM Routine 05/27/2018 3:02 PM PINION POLISHER Weight loss Depression, unspecified depression type Stress documented in this encounter Results * MAGNESIUM (05/27/2018 3:02 PM PINION POLISHER) MAGNESIUM 2.1 1.8 - 2.4 MG/DL 05/27/2018 8:44 PM PINION POLISHER [facility] 05/27/2018 3:02 PM PINION POLISHER us Fabiano Mosley MD LABORATORY Final Result [facility] [address] [place] [address], [place] [phone] * (ABNORMAL) C-REACTIVE PROTEIN (05/27/2018 3:02 PM PINION POLISHER) C-REACTIVE PROTEIN 0.36(H) <0.29 mg/dL 05/27/2018 8:[address] [facility] 05/27/2018 3:02 PM PINION POLISHER us Fabiano Mosley MD LABORATORY Final Result Performing Organization Address [facility]/ZIP Co de Phone Number [facility] [address] [place] [address], [place] [phone] * SED RATE, ERYTHROCYTE (ESR) (05/27/2018 3:02 PM PINION POLISHER) ESR 18 0 - 20 MM/HR 2018 9:30 AM PINION POLISHER [facility] 05/27/2018 3:02 PM PINION POLISHER us Fabiano Mosley MD LABORATORY Final Result Performing Organization Address City/[facility]/ZIP Co de Phone Number [facility] [address] [place] [address], [place] [phone] * TSH W/REFLEX (05/27/2018 3:02 PM PINION POLISHER) TSH 0.526 0.358 - 3.74 uIU/ML 05/27/2018 8:[address] [facility] Comment: HIGH DOSES OF BIOTIN MAY INTERFERE WITH THIS TEST RESULT. CORRELATION TO CLINICAL HISTORY AND PRESENTATION RECOMMENDED. FREE T4 NOT INDICATED 05/27/2018 3:02 PM PINION POLISHER us Fabiano Mosley MD LABORATORY Final Result [facility] [address] [place] [address], documented in this encounter Visit Diagnoses Diagnosis Weight loss Loss of weight Depression, unspecified depression type Stress Other psychological or physical stress, not elsewhere classified documented in this encounter Care Teams C Java Developer Relationship Specialty Start Date End Date Fabiano Mosley MD PCP - General FAMILY PRACTICE 11/01/17 02/21/21 documented as of this encounter
--- OUTSIDE RECORDS SUMMARY | 2024-04-12 08:49 | XMS_ITS | Encounter Summary ---
Author Organization [facility] Address [address] [place] [address]. [address] [address] Care Team Providers Care Parcel Post Truck Driver Name Role Phone Fabiano Mosley MD Primary Care Provider [phone] Reason for Referral * Imaging (Routine) - Closed Specialty Diagnoses / Procedures Referred By Lissa hermosillo Referred To Contact Diagnoses Lung nodule, solitary Procedures CT CHEST Fabiano Arguelles MD Phone: tel: fax: [place] [address] Phone: tel: Referral ID Status Reason Start Date Expiration Date Visits Re quested Visits Authorized [id number] Closed 07/15/2018 08/15/2019 1 1 Reason for Visit * Imaging (Routine) - Closed Specialty Diagnoses / Procedures Referred By Lissa hermosillo Referred To Contact Diagnoses Lung nodule, solitary Procedures CT CHEST WO Fabiano Delcid MD Phone: tel: fax: [place] [address] Phone: tel: Referral ID Status Reason Start Date Expiration Date Visits Re quested Visits Authorized [id number] Closed 07/15/2018 08/15/2019 1 1 Encounter Details Date Type Department Care Team (Late st Contact Info) Description 07/25/2018 5:00 PM CDT - 07/25/2018 11:59 PM CDT [facility] [address] [place] [address] Fabiano Mosley MD [address] [place] [address] Discharge Disposition: Home or Self [...] mouth daily. 30 tablet 3 02/28/2018 9 finasteride 5 MG tabletIndications :Benign prostatic hyperplasia with urinary hesitancy Take 1 tablet (5 mg total) by mouth daily. 30 tablet 5 07/16/2018 9 tadalafil 5 MG tabletIndications :Erectile dysfunction, [...] Diagnosis Comments CT CHEST WO CON Routine 07/25/2018 5:37 PM CDT Lung nodule, solitary documented in [...] nodule documented in this encounter Care Teams Parcel Post Truck Driver Relationship Specialty Start Date End Date Fabiano Mosley MD PCP - General FAMILY PRACTICE 11/01/17 02/21/21 documented as of this encounter
--- OUTSIDE RECORDS SUMMARY | 2024-04-12 08:49 | XMS_ITS | Encounter Summary ---
Author Organization [facility] Address [address] [place] [address]. [place], [place] [address] [place] [address] Care Team Providers Care Payroll Processor Name Role Phone Fabiano Mosley MD Primary Care Provider [phone] Reason for Visit * Reason Onset Date Comments Results 05/20/2018 Encounter Details Date Type Department Care Team ([facility] st Contact Info) Description 05/20/2018 Telephone [facility] Medical [facility] Medicine [address] [address] Fabiano Mosley MD [address] [place] [address] Results Social History Tobacco Use [...] Progress Notes * Niurka Bermudez MA - 05/20/2018 10:44 AM CST PT. COMING IN FOR APPT. WILL LET HIM KNOW ABOUT RESULTS. ORTHOPAEDICS * Niurka Bermudez MA - 05/20/2018 10:44 AM CST ----- Message from Fabiano Mosley MD sent at 04/25/2018 8:01 PM RN ORTHOPAEDICS ----- Please inform patient CT showed stable pulmonary module. Repeat in 6 months to monitor ORTHOPAEDICS documented in this encounter Plan of Treatment Not on file documented as of this encounter Visit Diagnoses Not on filedocumented in this encounter Care Teams Payroll Processor Relationship Specialty Start Date End Date Fabiano Mosley MD PCP - General FAMILY PRACTICE 11/01/17 02/21/21 documented as of this encounter
--- OUTSIDE RECORDS SUMMARY | 2024-04-12 08:49 | XMS_ITS | Encounter Summary ---
Author Organization [facility] Address [address] [place] [address]. [place], [place] [address] [place] [address] Care Team Providers Care Motion Study Technician Name Role Phone Fabiano Mosley MD Primary Care Provider [phone] Reason for Visit * Reason Onset Date Comments Results 05/08/2018 Ct results Encounter Details Date Type Department Care Team ([facility] st Contact Info) Description 05/08/2018 Telephone [facility] Medical [address] [address] Fabiano Mosley MD [address] [place] [address] Results (Ct results) Social History Tobacco Use Types Packs/Day [...] Progress Notes * Niurka Bermudez MA - 05/08/2018 1:52 PM CST LM again for pt. To cb re: CT results CAPPER HELPER * Niurka Bermudez MA - 05/08/2018 1:51 PM CST ----- Message from Fabiano Mosley MD sent at 04/25/2018 8:01 PM MOLD CAPPER HELPER ----- Please inform patient CT showed stable pulmonary module. Repeat in 6 months to monitor CAPPER HELPER documented in this encounter Plan of Treatment Not on file documented as of this encounter Visit Diagnoses Not on filedocumented in this encounter Care Teams Motion Study Technician Relationship Specialty Start Date End Date Fabiano Mosley MD PCP - General FAMILY PRACTICE 11/01/17 02/21/21 documented as of this encounter
--- OUTSIDE RECORDS SUMMARY | 2024-04-12 08:49 | XMS_ITS | Encounter Summary ---
Author Organization [facility] Address [address] [place] [address]. [place], [place] [address] [place] [address] Care Team Providers Care Bank Accountant Name Role Phone Fabiano Mosley MD Primary Care Provider [phone] Reason for Visit * Reason Comments Anxiety follow up/ better Follow [facility] Did gain some weight. Encounter Details Date Type Department Care Team (Late st Contact Info) Description 06/10/2018 3:20 PM HOUSECALLS NURSE Office Visit [facility] Medical [facility] Family Medicine [address] [address] Fabiano Mosley MD [address] [place] [address] Anxiety (follow up/ better ); Follow Up (just got back from [place]. Did gain some weight. ) Social History Tobacco Use Types Packs/Day Years [...] Sign Reading Time Taken Comments Blood Pressure 118/72 06/10/2018 3:25 PM HOUSECALLS NURSE Pulse - - Temperature 36.8 ??C (98.3 ??F) 06/10/2018 3:25 PM CS T Respiratory Rate - - Oxygen Saturation 98% 06/10/2018 3:25 PM HOUSECALLS NURSE Inhaled Oxygen Concentration - - Weight 72.1 kg (159 lb) 06/10/2018 3:25 PM HOUSECALLS NURSE Height - - Body Mass Index 20.98 02/04/2018 11:05 AM CDT documented in this encounter Progress Notes * Fabiano Mosley MD - 06/10/2018 3:20 PM CST Images from the original note were not included. Office Progress Note Reason for Visit: No chief complaint on file. History of Present Illness: 68 yo M presents for follow up. Anxiety -improved after trip to [place]. Gained 3 lbs and states was sleeping 12-13 hours a day. BPH/ED -On finasterie, tamsulosin and using cialis for both ED and BPH. This has helped but needing surgical intervention but only wants PAE at which time will take off medication. Seen by Urologist in pastpending current referral. Understands high risk of hypotension, fatigue. Still waking up at night and restless sleep due to frequent urination. Posterior rib msk rib pain -only occurs in certain positions, does not occur with standing. States when laying on his couch along bilateral lower posterior ribs. No renal issues. ROS: Review of Systems Constitutional: Positive for malaise/fatigue and weight loss. Negative for chills and fever. HENT: Negative for sore throat. Respiratory: Negative for cough, shortness of breath and wheezing. Cardiovascular: Negative for chest pain, palpitations and leg swelling. Gastrointestinal: Negative for constipation, diarrhea, nausea and vomiting. Genitourinary: Negative. Musculoskeletal: Positive for myalgias. Negative for falls and joint pain. Skin: Negative for itching and rash. Neurological: Negative for dizziness and headaches. Psychiatric/Behavioral: Negative for depression and suicidal ideas. The patient is nervous/anxious. Medications: Current Outpatient Medications: ??? clonazePAM [...] file Gets together: Not on file Attends zoroastrianism service: Not on file Active member of [...] has no wheezes. He has no rales. Musculoskeletal: Normal range of motion. He exhibits tenderness. He exhibits no edema. Lymphadenopathy: He has no cervical adenopathy. Neurological: He is alert and oriented to person, place, and time. No cranial nerve deficit. Skin: Skin is warm and dry. No rash noted. He is not diaphoretic. No erythema. Psychiatric: He has a normal mood and affect. His behavior is normal. Nursing note and vitals reviewed. Filed Vitals: 06/10/18 1525 BP: 118/72 Temp: 98.3 ??F (36.8 ??C) SpO2: 98% Weight: 72.1 kg (159 lb) Diagnoses/Impression: No diagnosis found. Recommendations and Plan: Anxiety -improved after trip to [place]/medication. Gained 3 lbs and states was sleeping 12-13 hours a day. -Continue lexapro, klonopin BPH/ED -On finasterie, tamsulosin and using cialis for both ED and BPH. This has helped but needing surgical intervention but only wants PAE at which time will take off medication. Seen by Urologist in pastpending current referral. Understands high risk of hypotension, fatigue. Still waking up at night and restless sleep due to frequent urination. Posterior rib msk rib pain -Will trial lidocaine patches, needing better msk hygiene and ergonomics along with sleep/rest. Will need CT for pulm nodule in July Of note outside of nodules CT did show emphysema, may trial on inhalers/PFT's to see if improves some symptoms. No orders of the defined types were placed in this encounter. Cannot display discharge medications since this is not an admission. PCP: Fabiano Mosley MD 06/10/2018 [place] NURSE documented in this encounter Plan of Treatment Not on file documented as of this encounter Visit Diagnoses Diagnosis Anxiety- Primary Anxiety state, unspecified Rib pain Chest pain, unspecified Jittery feeling Shaky Abnormal involuntary movements Erectile dysfunction, unspecified erectile dysfunction type Weight loss Loss of weight documented in this encounter Care Teams Bank Accountant Relationship Specialty Start Date End Date Fabiano Mosley MD PCP - General FAMILY PRACTICE 11/01/17 02/21/21 documented as of this encounter
--- OUTSIDE RECORDS SUMMARY | 2024-04-12 08:49 | XMS_ITS | Encounter Summary ---
Author Organization [facility] Address [address] [place] [address]. [place], [place] [address] [place] [address] Care Team Providers Care Showroom Sales Assistant Name Role Phone Fabiano Mosley MD Primary Care Provider [phone] Reason for Referral * Consultation (Routine) - Closed Specialty Diagnoses / Procedures Referred By Contac t Referred To Contact UROLOGY Diagnoses Benign prostatic hyperplasia, unspecified whether lower urinary tract symptoms present Fabiano Mosley MD Phone: tel: fax: [address] [address] Phone: tel: fax: Referral ID Status Reason Start Date Expiration Date V isits Requested Visits Authorized [id number] Closed Specialty Services 05/20/2018 06/20/2019 100 100 Scheduling Instructions Interested in going to [facility] for possible Prostate Artery Embolization TAL MARKETING LEAD Reason for Visit * Reason Comments Follow Up feeling shakey and jittery when he wakes up , was told in the past he was borderline hypoglycemic. Or he is wondering if he may have a bladder infection. Back Pain hurting right below his shoulder blades and kidney area. PT. has dx of BPH Encounter Details Date Type Department Care Team (Late st Contact Info) Description 05/20/2018 1:00 PM DIGITAL MARKETING LEAD Office Visit [facility] Medical [facility] Family Medicine [address] [address] Fabiano Mosley MD [address] [place] [address] Follow Up (feeling shakey and jittery when he wakes up , was told in the past he was borderline hypoglycemic. Or he is wondering if he may have a bladder infection. ); Back Pain (hurting right below his shoulder blades and kidney area. PT. has dx of BPH ) Social History Tobacco Use Types Packs/Day [...] Reading Time Taken Comments Blood Pressure 122/70 05/20/2018 12:59 PM DIGITAL MARKETING LEAD Pulse 66 05/20/2018 12:59 PM DIGITAL MARKETING LEAD Temperature 36.4 ??C (97.5 ??F) 05/20/2018 12:[address] Respiratory Rate - - Oxygen Saturation 98% 05/20/2018 12:59 PM DIGITAL MARKETING LEAD Inhaled Oxygen Concentration - - Weight 75.8 kg (167 lb) 05/20/2018 12:59 PM DIGITAL MARKETING LEAD Height - - Body Mass Index 22.03 02/04/2018 11:05 AM CDT documented in this encounter Progress Notes * Emma Jones MA - 05/20/2018 1:00 PM CSTAddended by: EMMA JONES on: 05/20/2018 01:45 PM Modules accepted: Orders TAL MARKETING LEAD * Emma Jones MA - 05/20/2018 1:00 PM CSTAddended by: EMMA JONES on: 05/20/2018 01:59 PM Modules accepted: Orders TAL MARKETING LEAD * Fabiano Mosley MD - 05/20/2018 1:00 PM CST Images from the original note were not included. Office Progress Note Reason for Visit: No chief complaint on file. History of Present Illness: 67 yo M presents for follow up: Anxiety/stress; Shaky/jittery -High stress over the past year. Likely stress/anxiety. Not sleeping, working 7 days a week. 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 -labs normal in the past?? BPH/Chronic prostatis -Followed by urology. Up multiple times overnight. Given procedures that could help but interested in Prostate artery embolization. Thoracic back pain -Chronic issues, only occurs with laying back on chair. ROS: ROS Medications: Current Outpatient Medications: ??? finasteride 5 MG tablet, Take 1 tablet (5 mg total) by mouth daily., Disp: 30 tablet, Rfl: 3 ??? tadalafil 10 MG tablet, Take 10 mg by mouth daily as needed for Erectile Dysfunction., Disp: , Rfl: ??? tamsulosin 0.4 MG [...] developed and well-nourished. No distress. HENT: Head: Normocephalic. Cardiovascular: Normal rate. Pulmonary/Chest: Effort normal. Musculoskeletal: He exhibits tenderness. Arms: Neurological: He is alert and oriented to person, place, and time. Skin: Skin is warm and dry. He is not diaphoretic. Psychiatric: He has a normal mood and affect. His behavior is normal. There were no vitals filed for this visit. Diagnoses/Impression: No diagnosis found. Recommendations and Plan: Anxiety/stress -High stress over the past year. ??Will trial on klonopin to see if causing shaky/jitteriness. Follow up in 1 week. BPH/Chronic prostatis -Followed by urology. Up multiple times overnight. Given procedures that could help but interested in Prostate artery embolization. -Consulting [facility] urology for PAE. Shaky/jittery -Likely stress/anxiety. Not sleeping, working 7 days a week. 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 Thoracic back pain -voltaren, pain along posterior ribs, chronic issue No orders of the defined types were placed in this encounter. Cannot display discharge medications since this is not an admission. PCP: Fabiano Mosley MD 05/20/2018 TAL MARKETING LEAD documented in this encounter Plan of Treatment Scheduled Referrals Name Type Priority Associated Diagnoses Orde r Schedule Ambulatory referral to Urology Referral Routine Benign prostatic hyperplasia, unspecified whether lower urinary tract symptoms present Ordered: 05/20/2018 documented as of this encounter Procedures Procedure Name Priority Date/Time Associated Diagnosis Comments URINALYSIS AUTO DIP (BACK OFFICE) Routine 05/20/2018 Thoracic back pain, unspecified back pain laterality, unspecified chronicity documented in this encounter Results * CULTURE URINE (05/20/2018 2:00 PM DIGITAL MARKETING LEAD) SPEC DESCRIPTION URINE CLEAN CATCH 05/20/2018 6:42 PM DIGITAL MARKETING LEAD [facility] SPECIAL REQUESTS NO SPECIAL REQUEST 05/20/2018 6:42 PM [facility] CULTURE RESULT 10,000-49,000 COL/ML STREPTOCOCCUS VIRIDANS SPECIES SUSCEPTIBILTY NOT ROUTINELY PERFORMED. SAVING ISOLATE FOR 5 DAYS. CONTACT MICROBIOLOGY DEPARTMENT IF FURTHER WORKUP IS INDICATED. 05/22/2018 7:42 AM [facility] URINE SPECIMEN OBTAINED BY CLEAN CATCH PROCEDURE / Unknown 05/20/2018 2:00 PM DIGITAL MARKETING LEAD 05/20/2018 6:46 PM DIGITAL MARKETING LEAD us Fabiano Mosley MD MICROBIOLOGY - GENERAL ORDERABL ES Final Result [facility] [address] [place] [address], [place] [phone] * (ABNORMAL) COMPREHENSIVE METABOLIC PANEL (05/20/2018 2:00 PM DIGITAL MARKETING LEAD) GLUCOSE 106(H) 70 - 99 MG/DL 05/20/2018 7:18 PM [facility] BUN 16 7 - 18 MG/DL 05/20/2018 7:18 PM [facility] CREATININE S/P/B 0.91 0.7 - 1.3 MG/DL 05/20/2018 7:18 PM [facility] SODIUM S/P/B 141 136 - 145 MMOL/L 05/20/2018 7:18 PM [facility] POTASSIUM S/P/B 4.1 3.5 - 5.1 MMOL/L 05/20/2018 7:18 PM [facility] CHLORIDE S/P/B 107 100 - 108 MMOL/L 05/20/2018 7:18 PM [facility] CO2 30.0 21 - 32 MMOL/L 05/20/2018 7:18 PM [facility] CALCIUM S/P/B 8.9 8.5 - 10.1 MG/DL 05/20/2018 7:18 PM [facility] BILIRUBIN TOTAL S/P/B 0.8 0.2 - 1.2 MG/DL 05/20/2018 7:18 PM [facility] TOTAL PROTEIN S/P/B 6.8 6.4 - 8.2 G/DL 05/20/2018 7:18 PM [facility] ALBUMIN S/P/B 3.8 3.4 - 5.0 G/DL 05/20/2018 7:18 PM [facility] AST 11(L) 15 - 37 U/L 05/20/2018 7:18 PM [facility] ALT 17 16 - 60 U/L 05/20/2018 7:18 PM [facility] ALKALINE PHOSPHATASE S/P/B 121 50 - 136 U/L 05/20/2018 7:18 PM [facility] ANION GAP 8.1 8 - 20 MMOL/L 05/20/2018 7:18 PM [facility] BUN CREATININE RATIO 17.6 6 - 26 05/20/2018 7:18 PM [facility] A/G RATIO 1.3 1.0 - 2.0 RATIO 05/20/2018 7:18 PM [facility] EGFR NON-AFR. AMER. 88(L) >90 ML/MIN/1.7 3 M2 05/20/2018 7:18 PM [facility] EGFR AFR. AMER. >90 >90 ML/MIN/1.7 3 M2 05/20/2018 7:18 PM [facility] Comment: NOTE: eGFR is not calculated for patients <18 years of age. This is an estimated GFR (CKD EPI) and should not be used for calculating drug doses. 05/20/2018 2:00 PM DIGITAL MARKETING LEAD us Fabiano Mosley MD LABORATORY Final Result [facility] [address] [place] [address], * (ABNORMAL) CBC W/DIFF AUTOMATED (05/20/2018 2:00 PM DIGITAL MARKETING LEAD) WBC 6.4 4.5 - 11.0 x10'3/uL 05/20/2018 7:09 PM [facility] RBC 4.37(L) 4.70 - 6.10 x10'6/uL 05/20/2018 7:09 PM [facility] HGB 14.0 14.0 - 18.0 G/DL 05/20/2018 7:09 PM [facility] HCT 42.7(L) 43.0 - 54.0 % 05/20/2018 7:09 PM [facility] MCV 97.7(H) 80.0 - 94.0 FL 05/20/2018 7:09 PM [facility] MCH 32.0(H) 27.0 - 31.0 PG 05/20/2018 7:09 PM [facility] MCHC 32.8 32.0 - 36.0 G/DL 05/20/2018 7:09 PM [facility] RDW 13.2 11.5 - 14.5 % 05/20/2018 7:09 PM [facility] PLT 202 130 - 400 x10'3/uL 05/20/2018 7:09 PM [facility] MPV 11.6 9.3 - 12.2 FL 05/20/2018 7:09 PM [facility] DIFFERENTIAL TYPE AUTOMATED DIFFERENTIAL 05/20/2018 7:09 PM [facility] NEUTROPHILS % 63.2 % 05/20/2018 7:09 PM DIGITAL MARKETING LEAD [facility] LYMPHOCYTES % 20.4 % 05/20/2018 7:09 PM DIGITAL MARKETING LEAD [facility] MONOCYTES % 9.3 % 05/20/2018 7:09 PM [facility] EOSINOPHILS 5.7 % 05/20/2018 7:09 PM [facility] BASOPHILS 1.1 % 05/20/2018 7:09 PM [facility] IMMATURE GRANS % 0.3(H) 0 % 05/20/19 19 7:09 PM [facility] ABS. NEUTROPHILS TOTAL 4.03 1.80 - 7.70 x10'3/uL 05/20/2018 7:09 PM [facility] ABS. LYMPHOCYTES 1.30 1.00 - 4.80 x10'3/uL 05/20/2018 7:09 PM [facility] ABS. MONOCYTES 0.59 0.30 - 0.82 x10'3/uL 05/20/2018 7:09 PM DIGITAL MARKETING LEAD [facility] ABS. EOSINOPHILS 0.36 0.04 - 0.54 x10'3/uL 05/20/2018 7:09 PM [facility] ABS. BASOPHILS 0.07 0.01 - 0.08 x10'3/uL 05/20/2018 7:09 PM [facility] ABS. IMMATURE GRANULOCYTES 0.02 0.00 - 0.03 x10'3/uL 05/20/2018 7:09 PM [facility] 05/20/2018 2:00 PM DIGITAL MARKETING LEAD us Fabiano Mosley MD LABORATORY Final Result [facility] [address] [place] [address], [place] [phone] * URINALYSIS AUTO DIP (BACK OFFICE) (05/20/2018) TRANSPARENCY CLOUDY JONES BOWER COLOR (U) YELLOW JONES AVILA GLUCOSE (U) NEGATIVE NEGATIVE MG/DL RO AVILALOH BILIRUBIN (U) NEGATIVE NEGATIVE GERMAN TMAN RO MADDENLOH KETONES MG/DL (U) NEGATIVE NEGATIVE MG/DL RO AVILALOH SPECIFIC GRAVITY (U) 1.020 1.001 - 1.035 RO AVILALOH BLOOD (U) NEGATIVE NEGATIVE TERRENCE MADDEN, JONES U PH 7.5 5.0 - 9.0 TERRENCE MADDEN, JONES PROTEIN 2+ (100) NEG/TRACE MG/DL TERRENCE MADDEN, JONES UROBILINOGEN 1.0 0.2 - 1.0 EU/dL = mg/dL RO AVILALOH NITRITES NEGATIVE NEGATIVE MG/DL TERRENCE MADDEN, JONES LEUKOCYTES (U) TRACE NEGATIVE JONES LYNNE URINE SPECIMEN OBTAINED BY CLEAN CATCH PROCEDURE / Unknown 05/20/2018 us Fabiano Mosley MD URINE ORDERABLES Final Result JONES AVIL[facility] [address] [place] [address], documented in this encounter Visit Diagnoses Diagnosis Jittery feeling- Primary Shaky Abnormal involuntary movements Anxiety Anxiety state, unspecified Benign prostatic hyperplasia, unspecified whether lower urinary tract symptoms present Thoracic back pain, unspecified back pain laterality, unspecified chronicity Leukocytes in urine Other nonspecific finding on examination of urine documented in this encounter Care Teams Showroom Sales Assistant Relationship Specialty Start Date End Date Fabiano Mosley MD PCP - General FAMILY PRACTICE 11/01/17 02/21/21 documented as of this encounter
--- OUTSIDE RECORDS SUMMARY | 2024-04-12 08:50 | XMS_ITS | Encounter Summary ---
Author Organization [facility] Address [address] [place] [address]. [place], [place] [id number] [place] [address] Care Team Providers Care Paleologist Name Role Phone Fabiano Mosley MD Primary Care Provider [phone] Encounter Details Date Type Department Care Team (Latest Contact Info) Description 02/01/2018 Abstract [facility] Fabiano Mosley MD [address] [email or web address] [address] Social History Tobacco Use Types Packs/Day Years [...] Diagnosis Comments CT CHEST WO CON Routine 02/01/2018 2:00 PM CDT documented in this encounter Results * CT CHEST WO CON (02/01/2018 2:00 PM CDT) Anatomical Region Laterality Modality Chest Computed Tomogra phy 02/01/2018 2:00 PM CDT 02/01/2018 2:00 PM CDT Narrative 02/03/2018 12:05 PM CDT EXAMINATION: CT CHEST WITHOUT CONTRAST EXAM DATE/TIME: 02/01/2018 3:01 PM REASON FOR EXAM: ??Emphysema lung (HCC),Fibrosis of lung (HCC),Solitary pulmonary nodule ? COMPARISON: Lung screening CT 11/01/2017 TECHNIQUE: Computed tomography was performed of the chest without intravenous contrast. A dose lowering technique was used for this procedure, which may include, but is not limited to, dose reduction technique, automated exposure control, iterative reconstruction, ALARA (As Low As Reasonably Achievable), or Image Gently techniques. FINDINGS: Lungs: 5 mm subpleural nodular density medial right upper lobe axial image 37 is stable. 9 mm subpleural nodularity versus pleural thickening axial image 40 is also stable. Stable mild paraseptal emphysema. No new or progressive lesions are identified. Airways within normal limits. No pneumothorax or pleural effusion. On soft tissue windows, no axillary or supraclavicular lymphadenopathy. On mediastinal windows, no evidence of hilar or mediastinal lymphadenopathy. Heart size normal. No pericardial effusion. Limited evaluation of the upper abdomen demonstrates no acute abnormality. On bone windows, no suspicious skeletal lesion or acute compression fracture deformity. IMPRESSION: 1. ??Stable 5 mm right upper lobe and 9 mm right upper lobe subpleural nodular density versus pleural thickening or subpleural fibrosis. 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 Continued follow-up is recommended with CT in 3 months without contrast. 2. ??No new or progressive findings. Procedure Note , oMy Conversion, - 02/16/2018 EXAMINATION: CT CHEST WITHOUT CONTRAST EXAM DATE/TIME: 02/01/2018 3:01 PM REASON FOR EXAM: Emphysema lung (HCC),Fibrosis of lung (HCC),Solitary pulmonary nodule COMPARISON: Lung screening CT 11/01/2017 TECHNIQUE: Computed tomography was performed of the chest without intravenous contrast. A dose lowering technique was used for this procedure, which mayinclude, but is not limited to, dose reduction technique, automated exposure control, iterative reconstruction, ALARA (As Low As ReasonablyAchievable), or Image Gently techniques. FINDINGS: Lungs: 5 mm subpleural nodular density medial right upper lobe axialimage 37 is stable. 9 mm subpleural nodularity versus pleural thickening axial image 40 isalso stable. Stable mild paraseptal emphysema. No new or progressive lesions are identified. Airways within normal limits. No pneumothorax or pleural effusion. On soft tissue windows, no axillary or supraclavicular lymphadenopathy. On mediastinal windows, no evidence of hilar or mediastinal lymphadenopathy. Heart size normal. No pericardial effusion. Limited evaluation of the upper abdomen demonstrates no acuteabnormality. On bone windows, no suspicious skeletal lesion or acute compression fracture deformity. IMPRESSION: 1. Stable 5 mm right upper lobe and 9 mm right upper lobe subpleural nodular density versus pleural thickening or subpleural fibrosis. 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 Continued follow-up is recommended with CT in 3 months without contrast. 2. No new or progressive findings. us Fabiano Mosley MD CT Final Result documented in this encounter Visit Diagnoses Not on filedocumented in this encounter Care Teams Paleologist Relationship Specialty Start Date End Date Fabiano Mosley MD PCP - General FAMILY PRACTICE 11/01/17 02/21/21 documented as of this encounter
--- OUTSIDE RECORDS SUMMARY | 2024-04-12 08:50 | XMS_ITS | Encounter Summary ---
Author Organization [facility] Address [address] [place] [address]. [place], [place] [id number] [place] [address] Care Team Providers Care Residential Aide Name Role Phone Fabiano Mosley MD Primary Care Provider [phone] Reason for Visit * Reason Onset Date Comments Results 05/01/2018 Encounter Details Date Type Department Care Team ([facility] st Contact Info) Description 05/01/2018 Telephone [facility] Medical [facility] Medicine [address] [address] Fabiano Mosley MD [address] [place] [address] Results Social History Tobacco Use [...] Progress Notes * Niurka Bermudez MA - 05/01/2018 1:35 PM CST LM to cb re: test results ESIASTICAL WORKER * Niurka Bermudez MA - 05/01/2018 1:35 PM CST ----- Message from Fabiano Mosley MD sent at 04/25/2018 8:01 PM ECCLESIASTICAL WORKER ----- Please inform patient CT showed stable pulmonary module. Repeat in 6 months to monitor ESIASTICAL WORKER documented in this encounter Plan of Treatment Not on file documented as of this encounter Visit Diagnoses Not on filedocumented in this encounter Care Teams Residential Aide Relationship Specialty Start Date End Date Fabiano Mosley MD PCP - General FAMILY PRACTICE 11/01/17 02/21/21 documented as of this encounter
--- OUTSIDE RECORDS SUMMARY | 2024-04-12 08:50 | XMS_ITS | Encounter Summary ---
Author Organization [facility] Address [facility]. [place], [place] [address] [place] [address] Care Team Providers Care Analytics Consultant Name Role Phone Fabiano Mosley MD Primary Care Provider Encounter Details Date Type Department Care Team (Late st Contact Info) Description 02/04/2018 Abstract [facility] Medical Group Multispecialty Care - [address], [address] [place] [id number] Landon Rubio MD [address] [place] [address] [place] [address] Social History Tobacco Use Types Packs/Day Years [...] Sign Reading Time Taken Comments Blood Pressure 130/90 02/04/2018 11:05 AM CDT Pulse 89 02/04/2018 11:05 AM CDT Temperature - - Respiratory Rate - - Oxygen Saturation - - Inhaled Oxygen Concentration - - Weight 73 kg (161 lb) 02/04/2018 11:05 AM CDT Height 185.4 cm (6' 1 ) 02/04/2018 11:05 AM CDT Body Mass Index 21.24 02/04/2018 11:05 AM CDT documented in this encounter Progress Notes * Landon Rubio MD - 02/04/2018 10:40 AM CDT Verified Results *Urine dip auto In Office 04Feb2018 11:13AM Landon Rubio Test Name Result Flag Reference Color Dark yellow Clarity Clear Glucose Negative Bilirubin 1+ Ketones 5 mg/dL-Trace Specific Beverly 1.020 Blood Negative pH 6.5 5.0 - 7.0 Protein Negative Urobilinogen 0.2 E.U./dL Nitrites neg Leukocytes Negative Plan Chronic prostatitis ?? Sulfamethoxazole-Trimethoprim 800-160 MG Oral Tablet (Bactrim DS) Dysuria ?? Ciprofloxacin HCl - 500 MG Oral Tablet (Cipro) ?? *Urine dip auto In Office; Status:Complete; Done: 04Feb2018 11:13AM Elevated PSA ?? LevoFLOXacin 500 MG Oral Tablet documented in this encounter Procedure Notes * Landon Rubio MD - 02/04/2018 10:40 AM CDT Chief Complaint BPH with obstruction, chronic prostatitis History of Present Illness Mr. 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 Current Meds 1. LevoFLOXacin 500 MG Oral Tablet; TAKE 1 TABLET DAILY UNTIL FINISHED; Therapy: [id number] to (Evaluate:85Sfl1862) Requested for: 63Xow7986; Last Rx:[id number] Ordered 2. Sulfamethoxazole-Trimethoprim 800-160 MG Oral Tablet; TAKE 1 TABLET TWICE DAILY WITH FOOD; Therapy: 12Vcw7773 to (Evaluate:26Iow1970) Requested for: 62Aiu8949; Last Rx:[id number] Ordered 3. Tadalafil 5 MG Oral Tablet; Take 1 tablet daily; Therapy: 11Oct2017 to (Evaluate:30Apr2018) Requested for: 30Jan2018; Last Rx:30Jan2018 Ordered 4. Tamsulosin HCl - 0.4 MG Oral Capsule; TAKE 1 CAPSULE Daily; Therapy: 19Nov2017 to (Evaluate:23Apr2018) Requested for: 24Iza6817; Last Rx:24Dec2017 Ordered 5. Vitamin D3 5000 UNIT Oral Capsule; TAKE DIRECTED; Therapy: 82Jiu2060 to (Last Rx:[id number]) Ordered Allergies 1. No Known Drug Allergies 2. Mold Vitals Recorded: 04Feb2018 11:05AM Temperature 98.2 F Heart Rate 89 Systolic 130 Diastolic 90 Not able to obtain height Patient stated height Height 6 ft 1 in Weight 161 lb BMI Calculated 21.24 BSA Calculated 1.96 Procedure Procedure: diagnostic cystourethroscopy.. Indications for the procedure include urgency, frequency and BPH with obstruction. Risks, benefits, risk of bleeding and infection risks were discussed with the patient. Written consent was obtained prior to the procedure and is detailed in the patient's record. Pre-op evaluation: urinalysis was performed with normal results. Anesthesia: the urethra was lubricated with 1% lidocaine gel. Procedure Note: The patient was placed in the supine position. The patient was prepped and draped in the usual sterile fashion using betadine. The periurethral area was exposed and a lubricated 17 English flexible cystoscope was introduced into the urethral meatus. The urethra was normal. The cystoscope was advanced to the urethrovesical junction and the bladder was distended with saline. The prostate was visualized at the proximal urethraand bladder neck and the prostate appeared abnormal and Lateral lobe hyperplasia, with coaptation in the midline, an elongated prostatic urethra. Prostatic urethra is hypervascular, and there is a prominent intravesical component. All regions of the bladder were systematically inspected and the bladder appeared abnormal and Trabeculated. The interureteric ridge was located and the trigone was identified. The ureteral orifices were inspected and the ureters appeared normal, there was bilateral pa ssage of urine and Foreshortening of the trigone. Post-procedure: the bladder was drained and the cystoscope was removed the patient tolerated the procedure well. Complications: none. Plan Chronic prostatitis ?? Sulfamethoxazole-Trimethoprim 800-160 MG Oral Tablet (Bactrim DS) Rx By: Landon Rubio; Dispense: 14 Days ; #:28 Tablet; Refill: 0; For: Chronic prostatitis; SIRI =N; Sent To: [id number]; Last Updated By: Ольга Whitmore; 02/04/2018 11:08:04 AM Dysuria ?? Ciprofloxacin HCl - 500 MG Oral Tablet (Cipro) Rx By: Landon Rubio; For: Dysuria; Dose of 500 MG; Oral; SIRI = N; Administered by: Ольга Whitmore R.N.: 02/04/2018 11:08:00 AM; Last Updated By: Ольга Whitmore; 02/04/2018 11:10:14 AM ?? *Urine dip auto In Office; Status:Complete; Done: 04Feb2018 11:13AM Performed:In Office; Due:06Mar2018;Ordered; For:Dysuria; Ordered By:Landon Rubio; Elevated PSA ?? LevoFLOXacin 500 MG Oral Tablet Rx By: Landon Rubio; Dispense: 4 Days ; #:4 Tablet; Refill: 0; For: Elevated PSA; SIRI = N; Sent To: [id number]; Last Updated By: Ольга Whitmore; 02/04/2018 11:08:04 AM 1. 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 Cystoscopy shows evidence of an obstructive prostate, and a trabeculated bladder. There is also significant inflammation in the prostatic urethra. We did discuss treatment options for his persistent symptoms despite medical therapy. I recommended cystoscopy with laser vaporization of the prostate. The procedure was described in detail. He wishes to consider his options, and will contact my office. 2. Elevated PSA. Tissue obtained at prostate biopsy was partially destroyed because of water in theGRAVIDIsue processor in the department of pathology. However, acute and chronic inflammation was noted,and there was no atypia or cancer of the prostate identified. Prostate volume was almost 70 cc at the time of transrectal ultrasound, and the elevated PSA is likely due to the large size of the gland, and inflammation. Signatures Electronically signed by : Ольга Whitmore R.N.; Feb 04 2018 11:18AM NATIONAL RECRUITER (Co-author) Electronically signed by : Landon Rubio M.D.; Feb 04 2018 12:35PM NATIONAL RECRUITER (Author) documented in this encounter Plan of Treatment Not on file documented as of this encounter Procedures Procedure Name Priority Date/Time Associated Diagnosis Comments URINALYSIS AUTO DIP Routine 02/04/2018 1 1:13 AM CDT documented in this encounter Results * URINALYSIS AUTO DIP (02/04/2018 11:13 AM CDT) COLOR (U) Dark yellow [facility] TO EPIC CONVERSION TRANSPARENCY Clear [facility] P TO EPIC CONVERSION GLUCOSE Negative [facility] T O EPIC CONVERSION BILIRUBIN (U) 1+ [facility] UP TO EPIC CONVERSION KETONE (U) 5 mg/dL-Trace [facility] TO EPIC CONVERSION SPECIFIC GRAVITY (U) 1.020 [facility] TO EPIC CONVERSION BLOOD (U) Negative [facility] T O EPIC CONVERSION PH (U) 6.5 5.0 - 7.0 [facility] T O EPIC CONVERSION PROTEIN (ELP) (U) Negative [facility] TO EPIC CONVERSION UROBILINOGEN 0.2 E.U./dL [facility] OUP TO EPIC CONVERSION NITRITES neg [facility] T O EPIC CONVERSION LEUKOCYTES (U) Negative [facility] OUP TO EPIC CONVERSION 02/04/2018 11:1 3 AM CDT 02/04/2018 11:13 AM CDT Narrative [facility] TO EPIC CONVERSION - 02/04/2018 11:13 AM CDT Result Communication: No patient communication needed at this time us Landon Rubio MD URINE ORDERABLES Final Result [facility] TO EPIC CONVERSION documented in this encounter Visit Diagnoses Not on filedocumented in this encounter Care Teams Analytics Consultant Relationship Specialty Start Date End Date Fabiano Mosley MD PCP - General FAMILY PRACTICE 11/01/17 02/21/21 documented as of this encounter
--- OUTSIDE RECORDS SUMMARY | 2024-04-12 08:50 | XMS_ITS | Encounter Summary ---
Author Organization [facility] Address [address] [place] [address]. [place], [place] [address] [place] [address] Care Team Providers Care Dispensing Operator Name Role Phone Fabiano Mosley MD Primary Care Provider [phone] Reason for Visit * Reason Onset Date Comments Hospital Follow Up 02/28/2018 Encounter Details Date Type Department Care Team (Late st Contact Info) Description 02/28/[address] [facility] Multispecialty Care - [address], [address] [place] [phone] Landon Rubio MD [address] [place] [address] [place] [id number] Hospital Follow Up Social History Tobacco Use Types [...] as of this encounter Progress Notes * Ольга Whitmore RN - 03/01/2018 2:12 PM CST Patient scheduled for nurse visit 11/20. RIPPER * Ольга Whitmore RN - 02/28/2018 1:05 PM CST Patient was seen at [facility] ER. He states that he was unable to urinate, so they placeda Campos. They also gave him abx. 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 I told him I would discuss with Dr. Rubio to see what our plan will be. RIPPER * Zully Huertas - 02/28/2018 8:47 AM CST Patient is calling and needs to find out what to do he was in the er and doesn't know when to follow up has a cath in says he is in so much pain Call back to discuss RIPPER documented in this encounter Plan of Treatment Not on file documented as of this encounter Visit Diagnoses Diagnosis Benign prostatic hyperplasia with urinary retention- Primary documented in this encounter Care Teams Dispensing Operator Relationship Specialty Start Date End Date Fabiano Mosley MD PCP - General FAMILY PRACTICE 11/01/17 02/21/21 documented as of this encounter
--- OUTSIDE RECORDS SUMMARY | 2024-04-12 08:50 | XMS_ITS | Encounter Summary ---
Author Organization [facility] Address [address] [place] [address]. [place], [place] [address] [place] [address] Care Team Providers Care Machine Stapler Name Role Phone Fabiano Mosley MD Primary Care Provider [phone] Reason for Visit * Reason Onset Date Comments Question 03/04/2018 Encounter Details Date Type Department Care Team (Late st Contact Info) Description 03/04/2018 Telephone [facility] Medical Group Multispecialty Care - [address], [address] [place] [address] Landon Rubio MD [address] [place] [address] [place] [id number] Question Social History Tobacco Use Types Packs/Day [...] Progress Notes * Ольга Whitmore RN - 03/04/2018 5:24 PM CST Called patient and advised him that he can take tylenol or ibuprofen for pain because he is coming in tomorrow to get it removed. He verbalized understanding. COORDINATOR * Gayathri Durbin - 03/04/2018 3:11 PM CST Pt has a cath in. And it is really painful. Has appt tomorrow, but he is asking if we can give him anything to take for the pain [phone] COORDINATOR documented in this encounter Plan of Treatment Not on file documented as of this encounter Visit Diagnoses Not on filedocumented in this encounter Care Teams Machine Stapler Relationship Specialty Start Date End Date Fabiano Mosley MD PCP - General FAMILY PRACTICE 11/01/17 02/21/21 documented as of this encounter
--- OUTSIDE RECORDS SUMMARY | 2024-04-12 08:50 | XMS_ITS | Encounter Summary ---
Author Organization [facility] Address [address] [place] [address]. [place] [address] Care Team Providers Care Lime Kiln Operator Name Role Phone Fabiano Mosley MD Primary Care Provider [phone] Encounter Details Date Type Department Care Team (Latest Contact Info) Description 02/19/2018 Scan [facility] Moy Kwok MD Social History Tobacco Use Types Packs/Day [...] on filedocumented in this encounter Care Teams Lime Kiln Operator Relationship Specialty Start Date End Date Fabiano Mosley MD PCP - General FAMILY PRACTICE 11/01/17 02/21/21 documented as of this encounter
--- OUTSIDE RECORDS SUMMARY | 2024-04-12 08:50 | XMS_ITS | Encounter Summary ---
Author Organization [facility] Address [address] [place] [address]. [place], [place] [address] [place] [address] Care Team Providers Care Transformer Maker Name Role Phone Fabiano Mosley MD Primary Care Provider [phone] Reason for Visit * Reason Onset Date Comments Follow Up Call 03/13/2018 Encounter Details Date Type Department Care Team (Late st Contact Info) Description 03/13/2018 Telephone [facility] Medical Group Multispecialty Care - [address], [address] [place] [address] Landon Rubio MD [address] [place] [address] [place] [address] Follow Up Call Social History Tobacco Use [...] Progress Notes * Ольга Whitmore RN - 03/13/2018 9:16 AM CST Patient states that everything is going fine and he has not had to use the straight caths since he left the office. He states he has been urinating on his own and that he feels that he empties his bladder pretty well most of the time. ERN CHAIN BUILDER * Silvia Hirsch - 03/13/2018 8:57 AM CST Patient return phone call ERN CHAIN BUILDER * Ольга Whitmore RN - 03/13/2018 8:44 AM CST LVM for patient to call the office. I want to see how he is doing since his nurse visit last week. ERN CHAIN BUILDER documented in this encounter Plan of Treatment Not on file documented as of this encounter Visit Diagnoses Not on filedocumented in this encounter Care Teams Transformer Maker Relationship Specialty Start Date End Date Fabiano Mosley MD PCP - General FAMILY PRACTICE 11/01/17 02/21/21 documented as of this encounter
--- OUTSIDE RECORDS SUMMARY | 2024-04-12 08:50 | XMS_ITS | Encounter Summary ---
Author Organization [facility] Address [address] [place] [address]. [place], [place] [address] [place] [address] Care Team Providers Care Case Technician Name Role Phone Fabiano Mosley MD Primary Care Provider [phone] Reason for Visit * Reason Onset Date Comments Results 05/07/2018 CT Encounter Details Date Type Department Care Team ([facility] st Contact Info) Description 05/07/2018 Telephone [facility] Medical [address] [address] Fabiano Mosley MD [address] [place] [address] Results (CT) Social History Tobacco Use Types Packs/Day Years [...] Progress Notes * Niurka Bermudez MA - 05/07/2018 12:31 PM CST Lm to cb re: CT results COACH * Niurka Bermudez MA - 05/07/2018 12:31 PM CST ----- Message from Fabiano Mosley MD sent at 04/25/2018 8:01 PM HEAD COACH ----- Please inform patient CT showed stable pulmonary module. Repeat in 6 months to monitor COACH documented in this encounter Plan of Treatment Not on file documented as of this encounter Visit Diagnoses Not on filedocumented in this encounter Care Teams Case Technician Relationship Specialty Start Date End Date Fabiano Mosley MD PCP - General FAMILY PRACTICE 11/01/17 02/21/21 documented as of this encounter
--- OUTSIDE RECORDS SUMMARY | 2024-04-12 08:50 | XMS_ITS | Encounter Summary ---
Author Organization [facility] Address [address] [place] [address]. [place] [address] Care Team Providers Care Asphalt Mixing Machine Operator Name Role Phone Fabiano Mosley MD Primary Care Provider [phone] Encounter Details Date Type Department Care Team (Latest Contact Info) Description 02/13/2018 Abstract [facility] Medical Group Moy Kwok MD Social History [...] on filedocumented in this encounter Care Teams Asphalt Mixing Machine Operator Relationship Specialty Start Date End Date Fabiano Mosley MD PCP - General FAMILY PRACTICE 11/01/17 02/21/21 documented as of this encounter
--- OUTSIDE RECORDS SUMMARY | 2024-04-12 08:50 | XMS_ITS | Encounter Summary ---
Author Organization [facility] Address [address] [place] [address]. [place] [address] Care Team Providers Care Groundman Name Role Phone Fabiano Mosley MD Primary Care Provider [phone] Encounter Details Date Type Department Care Team (Latest Contact Info) Description 02/22/2018 1:44 PM MAINTENANCE SHOP CLERK - 02/22/2018 11:59 PM [facility] Hospital Encounter [facility] [place] [address] Landon Rubio MD [address] [place] [address] [place] [address] Discharge Disposition: Home or Self Care (Routine [...] this encounter Medications at Time of Discharge tadalafil 10 MG tablet Take 10 mg by mouth daily as needed for Erectile Dysfunction. 05/20/2018 tadalafil 5 MG tablet Take 1 tablet by mouth daily. 10/11/2017 06/10/2018 tadalafil 5 MG tablet CHEW AND SWALLOW ONE GUMMY ONCE DAILY. 2 02/22/2018 01/16/2019 tamsulosin 0.4 MG Cap Take 0.4 mg by mouth daily. 06/11/2018 documented as of this encounter Plan of Treatment Not on file documented as of this encounter Procedures Procedure Name Priority Date/Time Associated Diagnosis Comments PROSTATE SPECIFIC ANTIGEN,TOTAL Routine 02/22/2018 1:50 PM MAINTENANCE SHOP CLERK Elevated prostate specific antigen (PSA) documented in this encounter Results * (ABNORMAL) PROSTATE SPECIFIC ANTIGEN,TOTAL (02/22/2018 1:50 PM MAINTENANCE SHOP CLERK) PSA 20.70(H) <4.00 NG/ML 02/22/2018 2:27 PM MAINTENANCE SHOP CLERK [facility] Comment: Test was performed using the Siemens method. ??Results obtained with other assay methods or kits cannot be used interchangeably with results obtained by the Siemens method. 02/22/2018 1:50 PM MAINTENANCE SHOP CLERK us Landon Ruboi MD LABORATORY Final Result [facility] [address] [place] [address], documented in this encounter Visit Diagnoses Diagnosis Elevated prostate specific antigen (PSA) documented in this encounter Care Teams Groundman Relationship Specialty Start Date End Date Fabiano Mosley MD PCP - General FAMILY PRACTICE 11/01/17 02/21/21 documented as of this encounter
--- OUTSIDE RECORDS SUMMARY | 2024-04-12 08:50 | XMS_ITS | Encounter Summary ---
Author Organization [facility] Address [address] [place] [address]. [place] [address] Care Team Providers Care Interior Design Director Name Role Phone Fabiano Mosley MD Primary Care Provider [phone] Reason for Visit * Reason Comments Allied Health Visit voiding trial/self-c ath teaching Encounter Details Date Type Department Care Team (Latest Contact Info) Description 03/05/2018 1:00 PM SENIOR INSPECTOR Allied Health/Nurse Visit [facility] Group Multispecialty Care - [address], [address] [place] [address] Allied Health Visit (voiding trial/self-cath teaching) Social History Tobacco Use Types Packs/Day Years [...] of this encounter Progress Notes * Ольга Whitmore, RN - 03/05/2018 1:00 PM CST Patient presented today for a nurse visit. I instilled approximately 150 cc of NS into the patient's bladder via his Campos cath. Patient stated that he felt like he had to urinate, so the catheter was then removed. Patient was able to void just over 150 cc into a urinal post-removal. I then explained the procedure of self catheterization to the patient, emphasizing the importance of hand hygiene and perineal care. The patient verbalized understanding of the procedure. The patient demonstrated proper self-catheterization technique under my supervision using a 16 Vincentian coude intermittent cath,and urine was drained from the bladder. The patient verbalized that he felt comfortable with the pro cedure. I provided him with several samples of 16 Fr coude intermittent catheters and requested that he call us tomorrow with an update on how he is voiding and if he has had to cath. I advised him to be sure he is drinking fluids and attempting to void at regular intervals, and that if he feels heis not emptying completely or begins to have discomfort, to self-catheterize. He verbalized understanding. OR INSPECTOR documented in this encounter Plan of Treatment Not on file documented as of this encounter Visit Diagnoses Diagnosis BPH (benign prostatic hyperplasia)- Primary Unspecified hyperplasia of prostate without urinary obstruction and other lower urinary tract symptoms (LUTS) documented in this encounter Care Teams Interior Design Director Relationship Specialty Start Date End Date Fabiano Mosley MD PCP - General FAMILY PRACTICE 11/01/17 02/21/21 documented as of this encounter
--- OUTSIDE RECORDS SUMMARY | 2024-04-12 08:50 | XMS_ITS | Encounter Summary ---
Author Organization [facility] Address [address] [place] [address]. [place], [place] [address] [place] [address] Care Team Providers Care Drilling Engineering Manager Name Role Phone Fabiano Mosley MD Primary Care Provider [phone] Reason for Visit * Reason Onset Date Comments Results 04/30/2018 CT results Encounter Details Date Type Department Care Team ([facility] st Contact Info) Description 04/30/2018 Telephone [facility] Medical [address] [address] Fabiano Mosley MD [address] [place] [address] Results (CT results ) Social History Tobacco Use Types Packs/Day [...] Progress Notes * Niurka Bermudez MA - 04/30/2018 3:11 PM CST LM to cb regarding CT results DIRECTOR * Niurka Bermudez MA - 04/30/2018 3:11 PM CST ----- Message from Fabiano Mosley MD sent at 04/25/2018 8:01 PM CO DIRECTOR ----- Please inform patient CT showed stable pulmonary module. Repeat in 6 months to monitor DIRECTOR documented in this encounter Plan of Treatment Not on file documented as of this encounter Visit Diagnoses Not on filedocumented in this encounter Care Teams Drilling Engineering Manager Relationship Specialty Start Date End Date Fabiano Mosley MD PCP - General FAMILY PRACTICE 11/01/17 02/21/21 documented as of this encounter
--- OUTSIDE RECORDS SUMMARY | 2024-04-12 08:50 | XMS_ITS | Encounter Summary ---
Author Organization [facility] Address [address] [place] [address]. [address] [address] Care Team Providers Care Acute Specialist Name Role Phone Fabiano Mosley MD Primary Care Provider [phone] Reason for Referral * Imaging (Routine) - Closed Specialty Diagnoses / Procedures Referred By Lissa hermosillo Referred To Contact Diagnoses Lung nodule Lung nodule, solitary Procedures CT CHEST Fabiano Arguelles MD Phone: tel: fax: [place] [address] Phone: tel: Referral ID Status Reason Start Date Expiration Date Visits Re quested Visits Authorized [id number] Closed 02/14/2018 03/16/2019 1 1 [place] ASSOCIATE MANAGER BILINGUAL Reason for Visit * Imaging (Routine) - Closed Specialty Diagnoses / Procedures Referred By Lissa hermosillo Referred To Contact Diagnoses Lung nodule Lung nodule, solitary Procedures CT CHEST WO Fabiano Delcid MD Phone: tel: fax: [place] [address] Phone: tel: Referral ID Status Reason Start Date Expiration Date Visits Re quested Visits Authorized [id number] Closed 02/14/2018 03/16/2019 1 1 Encounter Details Date Type Department Care Team (Late st Contact Info) Description 04/25/2018 2:00 PM RETAIL ASSOCIATE MANAGER BILINGUAL - 04/25/2018 11:59 PM RETAIL ASSOCIATE MANAGER BILINGUAL Hospital En[facility] [address] [place] [address] Fabiano Mosley MD [address] [facility] [place] [address] Discharge Disposition: Home or Self [...] this encounter Medications at Time of Discharge finasteride 5 MG tabletIndications :Benign prostatic hyperplasia with urinary retention Take 1 tablet (5 mg total) by mouth daily. 30 tablet 3 02/28/2018 9 tadalafil 10 MG tablet Take 10 mg by mouth daily as needed for Erectile Dysfunction. 9 tadalafil 5 MG tablet Take 1 tablet by mouth daily. 10/11/2017 9 tadalafil 5 MG tablet CHEW AND SWALLOW ONE GUMMY ONCE DAILY. 2 02/22/2018 9 tamsulosin 0.4 MG Cap Take 0.4 mg by mouth daily. 9 documented as of this encounter Progress Notes * Niurka Bermudez MA - 04/25/2018 11:59 PM CST LM to cb regarding CT results [place] ASSOCIATE MANAGER BILINGUAL * Niurka Bermudez MA - 04/25/2018 11:59 PM CST Lm to cb regarding results [place] ASSOCIATE MANAGER BILINGUAL * Niurka Bermudez MA - 04/25/2018 11:59 PM CST LM to cb re: CT results [place] ASSOCIATE MANAGER BILINGUAL * Niurka Bermudez MA - 04/25/2018 11:59 PM CST PT. HAS APPT. TODAY WILL LET HIM KNOW ABOUT HIS RESULTS [place] ASSOCIATE MANAGER BILINGUAL documented in this encounter Plan of Treatment Not on file documented as of this encounter Procedures Procedure Name Priority Date/Time Associated Diagnosis Comments CT CHEST WO CON Routine 04/25/2018 2:25 PM RETAIL ASSOCIATE MANAGER BILINGUAL Lung nodule Lung nodule, solitary documented in this encounter Results * CT CHEST WO CON (04/25/2018 2:25 PM RETAIL ASSOCIATE MANAGER BILINGUAL) Anatomical Region Laterality Modality Chest Computed Tomogra phy 04/25/2018 3:52 PM RETAIL ASSOCIATE MANAGER BILINGUAL Narrative 04/25/2018 4:08 PM RETAIL ASSOCIATE MANAGER BILINGUAL Examination: CT CHEST WO CON Clinical history: Follow-up pulmonary nodule Comparison: 02/01/2018, 11/01/2017 DATE/TIME: 04/25/2018 2:10 PM Technique: Multiplanar images of the chest were obtained. A dose lowering technique was used for this procedure, which may include, but is not limited to, dose reduction technique, automated exposure control, the use of iterative reconstruction, and ALARA (As Low As Reasonably Achievable) / Image Gently techniques. Findings: Peripheral triangular nodular opacity in the right upper lobe at the interface of the right major fissure with the parietal pleura is grossly unchanged, measuring about 9 mm. ??Similar appearing opacity on the left side at the major fissure/parietal pleural interface is also unchanged from prior studies. ??Given the appearance and location this is likely scarring. ??Stable 5 mm nodule about the medial right lower lobe is also unchanged. ??3 or 4 mm noncalcified indeterminate nodule in the lingula (series 2, image 71) is also unchanged from prior studies. There is a 2 or 3 mm noncalcified endobronchial nodule in the anterior right upper lobe (series 2, image 54). ??This is not significant could represent a small area of mucus plugging, however I question whether there was a smaller nodular focus in this area in January. ??Therefore would recommend continued follow-up with next CT in 3-6 months. ??There is also a tiny 2 mm endobronchial nodule in the right lower lobe (series 2, image 51). ??This is also nonspecific but possibly mucus plugging. ??There is also branching linear opacity in a small lingular airway (series 2, image 65), also likely mucus plugging. ??However I question that this may have also increased from the prior study. Mild paraseptal pulmonary emphysema. ??No pulmonary consolidation, pleural effusion or pneumothorax. 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 ??Stable from prior. ??Heart size is normal. ??No pericardial effusion. ??No mediastinal or hilar lymphadenopathy. ??No acute osseous abnormality or destructive bone lesion. IMPRESSION: 1. ??Small nodules in question are stable. 2. ??Few scattered tiny indeterminate peripheral endobronchial nodules are noted. ??Recommend follow-up CT in 3-6 months. 3. ??Stable dilatation of the ascending thoracic aorta, 4.0 cm caliber. 4. ??Emphysema. Interpreted By: Kenroy Dooley MD, 04/25/2018 3:52 PM Procedure Note Kenroy Dooley MD - 04/25/2018 Examination: CT CHEST WO CON Clinical history: Follow-up pulmonary nodule Comparison: 02/01/2018, 11/01/2017 DATE/TIME: 04/25/2018 2:10 PM Technique: Multiplanar images of the chest were obtained. A dose loweringtechnique was used for this procedure, which may include, but is notlimited to, dose reduction technique, automated exposure control, the useof iterative reconstruction, and ALARA (As Low As Reasonably Achievable) /Image Gently techniques. Findings: Peripheral triangular nodular opacity in the right upper lobe atthe interface of the right major fissure with the parietal pleura isgrossly unchanged, measuring about 9 mm. Similar appearing opacity on theleft side at the major fissure/parietal pleural interface is alsounchanged from prior studies. Given the appearance and location this islikely scarring. Stable 5 mm nodule about the medial right lower lobe isalso unchanged. 3 or 4 mm noncalcified indeterminate nodule in thelingula (series 2, image 71) is also unchanged from prior studies. There is a 2 or 3 mm noncalcified endobronchial nodule in the anteriorright upper lobe (series 2, image 54). This is not significant couldrepresent a small area of mucus plugging, however I question whether therewas a smaller nodular focus in this area in January. Therefore wouldrecommend continued follow-up with next CT in 3- 6 months. There is also atiny 2 mm endobronchial nodule in the right lower lobe (series 2, image51). This is also nonspecific but possibly mucus plugging. There is alsobranching linear opacity in a small lingular airway (series 2, image 65),also likely mucus plugging. However I question that this may have alsoincreased from the prior study. Mild paraseptal pulmonary emphysema. No pulmonary consolidation, pleuraleffusion or pneumothorax. Stable borderline fusiform aneurysmaldilatation of the ascending thoracic aorta, measuring about 4.0 cm ingreatest transverse diameter. Stable from prior. Heart size is normal.No pericardial effusion. No mediastinal or hilar lymphadenopathy. Noacute osseous abnormality or destructive bone lesion. IMPRESSION: 1. Small nodules in question are stable. 2. Few scattered tiny indeterminate peripheral endobronchial nodules arenoted. Recommend follow-up CT in 3-6 months. 3. Stable dilatation of the ascending thoracic aorta, 4.0 cm caliber. 4. Emphysema. Interpreted By: Kenroy Dooley MD, 04/25/2018 3:52 PM us Fabiano Mosley MD CT Final Result documented in this encounter Visit Diagnoses Diagnosis Lung nodule Solitary pulmonary nodule Lung nodule, solitary Solitary pulmonary nodule documented in this encounter Care Teams Acute Specialist Relationship Specialty Start Date End Date Fabiano Mosley MD PCP - General FAMILY PRACTICE 11/01/17 02/21/21 documented as of this encounter
--- OUTSIDE RECORDS SUMMARY | 2024-04-12 08:51 | XMS_ITS | Encounter Summary ---
Author Organization [facility] Address [address] [place] [address]. [place], [place] [id number] [place] [address] Care Team Providers Care Junior Software Developer Name Role Phone Fabiano Mosley MD Primary Care Provider [phone] Encounter Details Date Type Department Care Team (Late st Contact Info) Description 12/31/[address] [facility] [place] [address] Landon Rubio MD [address] [place] [address] [place] [id number] Social History Tobacco Use Types Packs/Day Years Used Date Smoking Tobacco: Never Assessed AUDIT-C Answer Date Recorded Frequency of Alcohol [...] (ABNORMAL) PROSTATE SPECIFIC ANTIGEN,TOTAL (02/22/2018 1:50 PM MANAGER MEDICAL DEVICE) PSA 20.70(H) <4.00 NG/ML 02/22/2018 2:27 PM MANAGER MEDICAL DEVICE [facility] Comment: Test was performed using the Siemens method. ??Results obtained with other assay methods or kits cannot be used interchangeably with results obtained by the Siemens method. 02/22/2018 1:50 PM MANAGER MEDICAL DEVICE us Landon Rubio MD LABORATORY Final Result [facility] [address] [place] [address], documented in this encounter Visit Diagnoses Diagnosis Elevated prostate specific antigen (PSA) documented in this encounter Care Teams Junior Software Developer Relationship Specialty Start Date End Date Fabiano Mosley MD PCP - General FAMILY PRACTICE 11/01/17 02/21/21 documented as of this encounter
--- OUTSIDE RECORDS SUMMARY | 2024-04-12 08:51 | XMS_ITS | Encounter Summary ---
Author Organization [facility] Address [address] [place] [address]. [place], [place] [address] [place] [address] Care Team Providers Care Manager Private Name Role Phone Fabiano Mosley MD Primary Care Provider [phone] Encounter Details Date Type Department Care Team (Latest Contact Info) Description 12/11/2017 Abstract [facility] Tessa Varela, [place] [address] [address] Social History Tobacco Use Types Packs/Day Years Used Date Smoking Tobacco: Never Assessed Sex and Gender Information Value Date Recorded Sex Assigned at Not on file Legal Sex Male 7:19 PM CDT Gender Identity Not on file Sexual Orientation Not on file documented as of this encounter Progress Notes * Moy Sanderson Md, MD - 12/11/2017 2:20 PM CDT Message Message: pt dropped off urine for reculture Plan 1. *Urine dip auto In Office; Status:Resulted - Requires Verification; Done: [id number] 01:13PM Performed:In Office; Due:[id number];Ordered; For:Dysuria; Ordered By:Tessa Varela; Signatures Electronically signed by : Odette Ba L.P.N.; Dec 11 2017 1:14PM GOLDBEATER (Author) Electronically signed by : Tessa Varela APN; Dec 11 2017 1:57PM GOLDBEATER (Author) Electronically signed by : Tessa Varela APN; Dec 11 2017 3:14PM GOLDBEATER (Author) documented in this encounter Plan of Treatment Not on file documented as of this encounter Procedures Procedure Name Priority Date/Time Associated Diagnosis Comments URINALYSIS AUTO DIP Routine 12/11/2017 1 :13 PM CDT documented in this encounter Results * URINALYSIS AUTO DIP (12/11/2017 1:13 PM CDT) COLOR (U) Yellow [facility] T O EPIC CONVERSION TRANSPARENCY Clear [facility] P TO EPIC CONVERSION GLUCOSE Negative [facility] T O EPIC CONVERSION BILIRUBIN (U) 1+ [facility] UP TO EPIC CONVERSION KETONE (U) Negative [facility] TO EPIC CONVERSION SPECIFIC GRAVITY (U) 1.015 [facility] TO EPIC CONVERSION BLOOD (U) Negative [facility] T O EPIC CONVERSION PH (U) 6 5.0 - 7.0 [facility] T O EPIC CONVERSION PROTEIN (ELP) (U) Negative [facility] TO EPIC CONVERSION UROBILINOGEN 1.0 E.U./dL [facility] OUP TO EPIC CONVERSION NITRITES n [facility] T O EPIC CONVERSION LEUKOCYTES (U) Negative [facility] OUP TO EPIC CONVERSION 12/11/2017 1:13 PM CDT 12/11/2017 1:13 PM CDT Narrative [facility] TO EPIC CONVERSION - 12/11/2017 1:13 PM CDT Result Communication: No patient communication needed at this time us Tessa Varela APNP URINE ORDERABLES Final Resu lt [facility] TO EPIC CONVERSION documented in this encounter Visit Diagnoses Not on filedocumented in this encounter Care Teams Manager Private Relationship Specialty Start Date End Date Fabiano Mosley MD PCP - General FAMILY PRACTICE 11/01/17 02/21/21 documented as of this encounter
--- OUTSIDE RECORDS SUMMARY | 2024-04-12 08:51 | XMS_ITS | Encounter Summary ---
Author Organization [facility] Address [address] [place] [address]. [place], [place] [address] [place] [address] Care Team Providers Care Middle School Music Teacher Name Role Phone Fabiano Mosley MD Primary Care Provider [phone] Reason for Visit * Auth/Cert Specialty Diagnoses / Procedures Referred By Lissa t Referred To Contact Diagnoses SCREENING Procedures COLONOSCOPY SCREENING Referral ID Status Reason Start Date Expiration Date Visits Re quested Visits Authorized [id number] 1 1 Encounter Details Date Type Department Care Team (Late st Contact Info) Description 01/31/2018 1:33 PM CDT Anesthesia Event [facility] [address] Lillian Hussein MD Anesthesia Record Procedure Summary Procedure Name Responsible Anesthesiologist Anesthesia Start Time Anesthesia Stop Time COLONOSCOPY WITH ASCENDING COLON POLYPECTOMY WITH COLD SNARE, SIGMOID COLON POLYPECTOMY X3 WITH COLD SNARE Lillian Hussein MD 01/31/18 1333 01/31/18 1404 Events Date Time Event Comment 01/31/2018 1159 1159 AN Anesthesia Prepped 1304 AN TURRET LATHE SET UP OPERATOR Prepped 1333 An Start Patient ID and consent checked and patient reassessed. 1334 An Start Data 1334 Preoxygenation 1335 Nasal Cannula Applied 1338 An Induction 1339 Anesthesia Ready 1358 An Emergence 1403 an stop data 1403 Nasal Cannula Removed 1403 Post Anesthetic Care Handoff I completed my handoff to the receiving nurse during which we: 1. Identified the patient 2. Identified the responsible provider 3. Reviewed the pertinent medical history 4. Discussed the surgical course 5. Reviewed intra-op anesthesia management and issues during anesthesia 6. Set expectations for post-procedure period 7. Allowed opportunity for questions and acknowledgement of understanding. 1404 An Stop Meds Name Total propofol (DIPRIVAN) 200 mg/20 mL injecti on 430 mg lidocaine (PF) 2% injection 50 mg lactated ringers infusion 400 mL * Agents Name O2 N2O Air * Blood No blood administrations on file. Lines, Drains, and Airways Type Details Placement Removal Peripheral IV Placement Date: 01/14 12/01; Placement Time: 1231; Placed Outside of This Facility?: No; Size: 20 G; Orientation: Right; Location: Hand; Site Prep: Chlorhexidine; Local Anesthetic: None; Inserted By: Grey sanders; Insertion attempts: 1; Ultrasound-guided Placement?: No; Patient Tolerance: Tolerated well; Removal Date: 01/31/18; Removal Time: 14301/31/18 1231 by Mara Alfaro RN 01/31/18 1434 by Gena Agosto RN documented in this encounter Social History Tobacco Use Types Packs/Day Years [...] on file documented as of this encounter OR Notes * Anesthesia Postprocedure Evaluation - Lillian Hussein MD - 01/31/2018 2:13 PM CDT Anesthesia Post-op Note Cruz Carreon Procedure(s): COLONOSCOPY WITH ASCENDING COLON POLYPECTOMY WITH COLD SNARE, SIGMOID COLON POLYPECTOMY X3 WITH COLD SNARE (N/A ) Anesthesia type: general Vitals: 01/31/18 1430 BP: 123/90 Vitals: 01/31/18 1430 Pulse: 64 Vitals: 01/31/18 1430 Resp: 14 Vitals: 01/31/18 1405 Temp: 36.9 ??C Vitals: 01/31/18 1430 SpO2: 100% Patient Location: Phase II/Outpatient Level of Consciousness: awake, oriented and alert Pain Management: pain being treated or addressed Airway Patency: patent Respiratory Status: spontaneous ventilation, unassisted and room air Cardiovascular Status: acceptable and hemodynamically stable Post-Op Nausea: none Postoperative Hydration: euvolemic Complications: no anesthesia complication * Anesthesia Postprocedure Evaluation - Lillian Hussein MD - 01/31/2018 2:13 PM CDT Anesthesia Post-op Note Cruz Carreon Procedure(s): COLONOSCOPY WITH ASCENDING COLON POLYPECTOMY WITH COLD SNARE, SIGMOID COLON POLYPECTOMY X3 WITH COLD SNARE (N/A ) Anesthesia type: general Vitals: 01/31/18 1405 BP: 111/83 Vitals: 01/31/18 1405 Pulse: 76 Vitals: 01/31/18 1405 Resp: 20 Vitals: 01/31/18 1405 Temp: 36.9 ??C Vitals: 01/31/18 1405 SpO2: 98% Patient Location: PACU Level of Consciousness: awake and alert Pain Management: pain being treated or addressed Airway Patency: patent Respiratory Status: spontaneous ventilation, unassisted and room air Cardiovascular Status: acceptable and hemodynamically stable Post-Op Nausea: none Postoperative Hydration: euvolemic Complications: no anesthesia complication * Anesthesia Preprocedure Evaluation - Lillian Hussein MD - 01/31/2018 11:47 AM CDT Anesthesia ROS/MED History Reviewed: Patient summary , Nursing notes , Family history anesthesia, Anesthesia history , Medications , Labs , Images/Studies Pre-Anesthetic State: alert, awake and responds appropriately no history of anesthetic complications Pulmonary (+) smoker Cardiovascular neg cardio ROS Neuro/Psych neg neuro/psych ROS GI/Hepatic/Renal Endo/Other neg endo/other ROS GENERAL COMMENTS Physical Evaluation Airway Mallampati: II Neck ROM: normal Dental No notable dental history Pulmonary Cardiovascular Rhythm: regular Anesthesia Plan ASA 2 Induction Anesthesia type: general Informed Consent Anesthetic plan and risks discussed with patient of whom consent was obtained. . documented in this encounter Plan of Treatment Not on file documented as of this encounter Visit Diagnoses Not on filedocumented in this encounter Administered Medications Inactive Administered Medications - up to 3 most recent administrations Medication Order MAR Action Action Date Dose Rate Site lactated ringers infusion Intravenous, Continuous PRN, Starting on Laury 01/31/18 at 1315, Until Laury 01/31/18 at 1404, Anesthesia Intra-Op New Bag 01/31/2018 1:15 PM CDT lidocaine (PF) (XYLOCAINE) 2 % injection Intravenous, PRN, Starting on Laury 01/31/18 at 1338, Until Laury 01/31/18 at 1404, Anesthesia Intra-Op Given 01/31/2018 1:38 PM CDT 50 mg propofol (DIPRIVAN) IV bolus PRN, Starting on Laury 01/31/18 at 1338, Until Laury 01/31/18 at 1404, Anesthesia Intra-Op Given 01/31/2018 1:55 PM CDT 30 mg Given 01/31/2018 1:52 PM CDT 50 mg Given 01/31/2018 1:49 PM CDT 50 mg documented in this encounter Care Teams Middle School Music Teacher Relationship Specialty Start Date End Date Fabiano Mosley MD PCP - General FAMILY PRACTICE 11/01/17 02/21/21 documented as of this encounter
--- OUTSIDE RECORDS SUMMARY | 2024-04-12 08:51 | XMS_ITS | Encounter Summary ---
Author Organization [facility] Address [address] [place] [address]. [place] [address] Care Team Providers Care Photo Printer Name Role Phone Fabiano Mosley MD Primary Care Provider [phone] Encounter Details Date Type Department Care Team (Latest Contact Info) Description 11/28/2017 Abstract [facility] Moy Kwok MD Social History Tobacco Use Types Packs/Day Years Used Date Smoking Tobacco: Never Assessed Sex and Gender Information Value Date Recorded Sex Assigned at Not on file Legal Sex Male 7:19 PM CDT Gender Identity Not on file Sexual Orientation Not on file documented as of this encounter Progress Notes * Moy Sanderson Md, MD - 11/28/2017 9:13 AM CDT Message Message: left ms for patient to call office to give note about CT Of Lung Signatures Electronically signed by : Heaven Juarez, ; Nov 28 2017 9:17AM KILN HEAD HOUSE OPERATOR (Author) documented in this encounter Plan of Treatment Not on file documented as of this encounter Visit Diagnoses Not on filedocumented in this encounter Care Teams Photo Printer Relationship Specialty Start Date End Date Fabiano Mosley MD PCP - General FAMILY PRACTICE 11/01/17 02/21/21 documented as of this encounter
--- OUTSIDE RECORDS SUMMARY | 2024-04-12 08:51 | XMS_ITS | Encounter Summary ---
Author Organization [facility] Address [address] [place] [address]. [place], [place] [address] [place] [address] Care Team Providers Care Transportation Maintenance Supervisor Name Role Phone Fabiano Mosley MD Primary Care Provider [phone] Encounter Details Date Type Department Care Team (Latest Contact Info) Description 12/19/2017 Abstract [facility] Medical Group Cal Rubio MD [address] [place] [address] [place] [address] Social History Tobacco Use Types Packs/Day Years [...] Procedure Name Priority Date/Time Associated Diagnosis Comments TISSUE EXAM BY PATHOLOGIST Routine 12/19/2017 12:00 AM CDT documented in this encounter Results * TISSUE EXAM BY PATHOLOGIST (12/19/2017 12:00 AM CDT) PATHOLOGY [facility] ? Department of Pathology ? [address] ? [place], [place] ??[address] ? [id number] ? Pathology Report ? Name: LIZ TURCIOS ? Specimen #: [id number] Age: 2 1950 (Age: 67) ? Location: [facility] Sex: M ? Procedure Date: 12/19/2017 Hospital #: [id number] ? Date Received: 12/20/2017 Date Reported: 12/25/2017 Provider: CAL RUBIO Gross Description: The first specimen is received in a formalin filled container labeled with the patient's name (Liz Turcios), date of and prostate biopsy left lateral base and consists of two needle core biopsies measuring 1.2 and 1.6 cm in length. ??The specimen is submitted entirely in a single cassette labeled A. The second specimen is received in a formalin filled container labeled with the patient's name (Liz Turcios), date of and prostate biopsy left lateral mid and consists of one needle core biopsy measuring 1.7 cm in length. The specimen is submitted entirely in a single cassette labeled B. The third specimen is received in a formalin filled container labeled with the patient's name (Liz Turcios), date of and prostate biopsy left lateral apex and consists of two needle core biopsies measuring 1.2 and 1.7 cm in length. ??The specimen is submitted entirely in a single cassette labeled C. The fourth specimen is received in a formalin filled container labeled with the patient's name (Liz Turcios), date of and prostate biopsy left medial base and consists of one needle core biopsy measuring 1.2 cm in length. ??The specimen is submitted entirely in a single cassette labeled D. The fifth specimen is received in a formalin filled container labeled with the patient's name (Liz Turcios), date of and prostate biopsy left medial mid and consists of one needle core biopsy measuring 1.4 cm in length. ??The specimen is submitted entirely in a single cassette labeled E. The sixth specimen is received in a formalin filled container labeled with the patient's name (Liz Turcios), date of and prostate biopsy left medial apex and consists of one needle core biopsy measuring 1.0 cm in length. ??The specimen is submitted entirely in a single cassette labeled F. The seventh specimen is received in a formalin filled container labeled with the patient's name (Liz Turcios), date of and prostate biopsy right lateral base and consists of two needle core biopsies measuring 1.0 and 1.5 cm in length. ??The specimen is submitted entirely in a single cassette labeled G. The eighth specimen is received in a formalin filled container labeled with the patient's name (Liz Turcios), date of and prostate biopsy right lateral mid and consists of one needle core biopsy measuring 1.6 cm in length. The specimen is submitted entirely in a single cassette labeled H. The ninth specimen is received in a formalin filled container labeled with the patient's name (Liz Turcios), date of and prostate biopsy right lateral apex and consists of two needle core biopsies measuring 1.3 and 1.4 cm in length. ??The specimen is submitted entirely in a single cassette labeled I. The tenth specimen is received in a formalin filled container labeled with the patient's name (Liz Turcios), date of and prostate biopsy right medial base and consists of one needle core biopsy measuring 1.7 cm in length. The specimen is submitted entirely in a single cassette labeled J. The eleventh specimen is received in a formalin filled container labeled with the patient's name (Liz Turcios), date of and prostate biopsy right medial mid and consists of one needle core biopsy measuring 1.6 cm in length. The specimen is submitted entirely in a single cassette labeled K. The twelfth specimen is received in a formalin filled container labeled with the patient's name (Liz Turcios), date of and prostate biopsy right medial and consists of one needle core biopsy measuring 1.2 cm in length. ??The specimen is submitted entirely in a single cassette labeled L. (CK) Microscopic Description: Microscopic examination of the prostate tissue is suboptimal for evaluation, as an error with the processor occurred during the processing of the tissue. Water was erroneously introduced into the machine, which disrupted processing of the tissue. Therefore, the histology is suboptimal to completely inadequate for evaluation. The tissue is re-processed and additional sections are made of each biopsy. However, the re-processed tissue is scant to non-existent in the majority of the blocks. No definitive malignancy is definitively identified, as an atypical infiltrate of small glands is not seen. Foci of small tumor invasion cannot be entirely excluded, however. Scattered acute and chronic inflammation is present, which could account for the patient's elevated PSA. Re-evaluation of the PSA after treatment for prostatitis is recommended. If the PSA remains elevated, and if clinically suspicious for malignancy, re-biopsy is recommended. This case underwent intradepartmental review. FINAL PATHOLOGIC DIAGNOSIS: PROSTATE, LEFT LATERAL BASE, BIOPSY: ? - ? NO DEFINITIVE EVIDENCE OF ADENOCARCINOMA (SEE MICROSCOPIC DESCRIPTION) PROSTATE, LEFT LATERAL MID, BIOPSY: ? - ? NO DEFINITIVE EVIDENCE OF ADENOCARCINOMA PROSTATE, LEFT LATERAL APEX, BIOPSY: ? - ? NO DEFINITIVE EVIDENCE OF ADENOCARCINOMA PROSTATE, LEFT MEDIAL BASE, BIOPSY: ? - ? NO DEFINITIVE EVIDENCE OF ADENOCARCINOMA PROSTATE, LEFT MEDIAL MID, BIOPSY: ? - ? NO DEFINITIVE EVIDENCE OF ADENOCARCINOMA PROSTATE, LEFT MEDIAL APEX, BIOPSY: ? - ? NO DEFINITIVE EVIDENCE OF ADENOCARCINOMA ? PROSTATE, RIGHT LATERAL BASE, BIOPSY: ? - ? NO DEFINITIVE EVIDENCE OF ADENOCARCINOMA PROSTATE, RIGHT LATERAL MID, BIOPSY: ? - ? NO DEFINITIVE EVIDENCE OF ADENOCARCINOMA PROSTATE, RIGHT LATERAL APEX, BIOPSY: ? - ? NO DEFINITIVE EVIDENCE OF ADENOCARCINOMA PROSTATE, RIGHT MEDIAL BASE, BIOPSY: ? - ? NO DEFINITIVE EVIDENCE OF ADENOCARCINOMA PROSTATE, RIGHT MEDIAL MID, BIOPSY: ? - ? NO DEFINITIVE EVIDENCE OF ADENOCARCINOMA PROSTATE, RIGHT MEDIAL APEX, BIOPSY: ? - ? NO DEFINITIVE EVIDENCE OF ADENOCARCINOMA ?? PRISCILLA TIDWELL ??Pathologist pb/12/24/2017 Electronically Signed Out [facility] 12/19/2017 12/19/2017 Narrative [facility] - 12/20/2017 8:44 AM CDT Result Communication: No patient communication needed at this time us Cal Rubio MD PATHOLOGY/CYTOLOGY ORDERABLES Final Result Performing Organization Address City/State/[facility] Co de Phone Number [facility] CON[facility] documented in this encounter Visit Diagnoses Not on filedocumented in this encounter Care Teams Transportation Maintenance Supervisor Relationship Specialty Start Date End Date Fabiano Mosley MD PCP - General FAMILY PRACTICE 11/01/17 02/21/21 documented as of this encounter
--- OUTSIDE RECORDS SUMMARY | 2024-04-12 08:51 | XMS_ITS | Encounter Summary ---
Author Organization [facility] Address [address] [place] [address]. [place], [place] [address] [place] [address] Care Team Providers Care Finance Insurance Manager Name Role Phone Fabiano Mosley MD Primary Care Provider [phone] Encounter Details Date Type Department Care Team (Late st Contact Info) Description 01/31/2018 Orders Only [facility] [place] [address] Fletcher Mckeon MD [address] [facility] [address] [place], [place] [address] Social History Tobacco Use Types Packs/Day Years [...] Procedure Name Priority Date/Time Associated Diagnosis Comments PATHOLOGY Routine 01/31/2018 12:00 AM CDT documented in this encounter Results * Pathology (01/31/2018 12:00 AM CDT) COPATH REPORT ? [facility] ? Department of Pathology ? [address] ? [place], [place] ??[address] ? [id number] ? Pathology Report ? Name: KAROLINA, LIZ A ? Specimen #: [id number] Age: 2 1950 (Age: 67) ? Location: [facility] Sex: M ? Procedure Date: 01/31/2018 Hospital #: [id number] ? Date Received: 01/31/2018 Date Reported: 02/01/2018 Provider: FLETCHER MCKEON Gross Description: The specimen is received in two formalin filled container, both labeled with the patient's name (Liz Carreon), and date of . A. ??The first container is received additionally labeled as ascending colon polyp. ??The specimen consists of four fragments of marcelino tissue each measuring approximately 0.2 cm as well as fragments of presumed fecal matter. The specimen is submitted in cassette A. B. ??The second container is received additionally labeled as sigmoid colon polyp. ??The specimen consists of three polypoid fragments of marcelino tissue measuring up to 0.2, 0.2 and 0.4 cm. ??The specimen is entirely submitted in cassette B. ?? Microscopic Description: Microscopic examination substantiates the above captioned diagnoses. FINAL PATHOLOGIC DIAGNOSIS: A. ??COLON, ASCENDING POLYP, BIOPSY: ? - ? TUBULAR ADENOMA, MULTIPLE FRAGMENTS ? - ? NO HIGH GRADE DYSPLASIA OR MALIGNANCY B. ??COLON, SIGMOID POLYPS, BIOPSY: ? - ? HYPERPLASTIC POLYP, THREE FRAGMENTS ? - ? NO DYSPLASIA OR MALIGNANCY ?? PRISCILLA TIDWELL ??Pathologist /02/01/2018 Electronically Signed Out ? [facility] 01/31/2018 01/31/2018 3:0 3 PM CDT Comment:POLYP, ASCENDING COL ON&POLYPS, SIGMOID COLON us Fletcher Mckeon MD PATHOLOGY/CYTOLOGY ORDERABL ES Final Result [facility] [address] [place] [address], documented in this encounter Visit Diagnoses Not on filedocumented in this encounter Care Teams Finance Insurance Manager Relationship Specialty Start Date End Date Fabiano Mosley MD PCP - General FAMILY PRACTICE 11/01/17 02/21/21 documented as of this encounter
--- OUTSIDE RECORDS SUMMARY | 2024-04-12 08:51 | XMS_ITS | Encounter Summary ---
Author Organization [facility] Address [address] [place] [address]. [place] [address] Care Team Providers Care Lvn Name Role Phone Fabiano Mosley MD Primary Care Provider [phone] Encounter Details Date Type Department Care Team (Latest Contact Info) Description 12/25/2017 Scan [facility] Medical Group Moy Kwok MD Social [...] on filedocumented in this encounter Care Teams Lvn Relationship Specialty Start Date End Date Fabiano Mosley MD PCP - General FAMILY PRACTICE 11/01/17 02/21/21 documented as of this encounter
--- OUTSIDE RECORDS SUMMARY | 2024-04-12 08:51 | XMS_ITS | Encounter Summary ---
Author Organization [facility] Address [address] [place] [address]. [place], [place] [address] [place] [address] Care Team Providers Care Motion Pictures Cartoonist Name Role Phone Fabiano Mosley MD Primary Care Provider [phone] Encounter Details Date Type Department Care Team (Latest Contact Info) Description 12/19/2017 Abstract [facility] Medical Group Cal Rubio MD [address] [place] [address] [place] [address] Social History Tobacco Use Types Packs/Day Years Used Date Smoking Tobacco: Never Assessed Sex and Gender Information Value Date Recorded Sex Assigned at Not on file Legal Sex Male 7:19 PM CDT Gender Identity Not on file Sexual Orientation Not on file documented as of this encounter Last Filed Vital Signs Vital Sign Reading Time Taken Comments Blood Pressure 120/78 12/19/2017 2:00 PM CDT Pulse 72 12/19/2017 2:00 PM CDT Temperature - - Respiratory Rate - - Oxygen Saturation - - Inhaled Oxygen Concentration - - Weight 74.8 kg (165 lb) 12/19/2017 2:00 PM CDT Height 185.4 cm (6' 1 ) 12/19/2017 2:00 PM CDT Body Mass Index 21.77 12/19/2017 2:00 PM CDT documented in this encounter Progress Notes * Cal Rubio MD - 12/19/2017 2:00 PM CDT Verified Results Surgical Pathology [id number] 12:00AM Cal Rubio Test Name Result Flag Reference Surgical Pathology (Report) [facility] Department of Pathology [address] [place] [phone] Pathology Report Name: LIZ TURCIOS Specimen #: [id number] Age: 2 1950 (Age: 67) Location: [facility] OP Sex: M Procedure Date: 12/19/2017 Hospital #: [id number] Date Received: 12/20/2017 Date Reported: 12/25/2017 Provider: CAL RUBIO Gross Description: The first specimen is received in a formalin filled container labeled with the patient's name (Liz Turcios), date of and prostate biopsy left lateral base and consists of two needle core biopsies measuring 1.2 and 1.6 cm in length. The specimen is [...] measuring 1.2 and 1.7 cm in length. The specimen is submitted entirely in a single cassette labeled C. The fourth specimen is received in a formalin filled container labeled with the patient's name (Liz Turcios), date of and prostate biopsy left medial base and consists of one needle core biopsy measuring 1.2 cm in length. The specimen is submitted entirely in a single cassette labeled D. The fifth specimen is received in a formalin filled container labeled with the patient's name (Liz Turcios), date of and prostate biopsy left medial mid and consists of one needle core biopsy measuring 1.4 cm in length. The specimen is submitted entirely in a single cassette labeled E. The sixth specimen is received in a formalin filled container labeled with the patient's name (Liz Turcios), date of and prostate biopsy left medial apex and consists of one needle core biopsy measuring 1.0 cm in length. The specimen is submitted entirely in a single cassette labeled F. The seventh specimen is received in a formalin filled container labeled with the patient's name (Liz Turcios), date of and prostate biopsy right lateral base and consists of two needle core biopsies measuring 1.0 and 1.5 cm in length. The specimen is submitted [...] measuring 1.3 and 1.4 cm in length. The specimen is submitted [...] core biopsy measuring 1.2 cm in length. The specimen is submitted [...] PATHOLOGIC DIAGNOSIS: PROSTATE, LEFT LATERAL BASE, BIOPSY: - NO DEFINITIVE EVIDENCE OF ADENOCARCINOMA (SEE MICROSCOPIC DESCRIPTION) PROSTATE, LEFT LATERAL MID, BIOPSY: - NO DEFINITIVE EVIDENCE OF ADENOCARCINOMA PROSTATE, LEFT LATERAL APEX, BIOPSY: - NO DEFINITIVE EVIDENCE OF ADENOCARCINOMA PROSTATE, LEFT MEDIAL BASE, BIOPSY: - NO DEFINITIVE EVIDENCE OF ADENOCARCINOMA PROSTATE, LEFT MEDIAL MID, BIOPSY: - NO DEFINITIVE EVIDENCE OF ADENOCARCINOMA PROSTATE, LEFT MEDIAL APEX, BIOPSY: - NO DEFINITIVE EVIDENCE OF ADENOCARCINOMA PROSTATE, RIGHT LATERAL BASE, BIOPSY: - NO DEFINITIVE EVIDENCE OF ADENOCARCINOMA PROSTATE, RIGHT LATERAL MID, BIOPSY: - NO DEFINITIVE EVIDENCE OF ADENOCARCINOMA PROSTATE, RIGHT LATERAL APEX, BIOPSY: - NO DEFINITIVE EVIDENCE OF ADENOCARCINOMA PROSTATE, RIGHT MEDIAL BASE, BIOPSY: - NO DEFINITIVE EVIDENCE OF ADENOCARCINOMA PROSTATE, RIGHT MEDIAL MID, BIOPSY: - NO DEFINITIVE EVIDENCE OF ADENOCARCINOMA PROSTATE, RIGHT MEDIAL APEX, BIOPSY: - NO DEFINITIVE EVIDENCE OF ADENOCARCINOMA PRISCILLA TIDWELL Pathologist pb/12/24/2017 Electronically Signed Out Plan Elevated PSA ?? Gentamicin Sulfate 40 MG/ML Injection Solution ?? Lidocaine HCl - 2 % Injection Solution ?? Lidocaine HCl - 2 % Injection Solution documented in this encounter Procedure Notes * Cal Rubio MD - 12/19/2017 2:00 PM CDT Chief Complaint elevated PSA, abnormal SHAWNEE PSA 14.3, SHAWNEE shows asymmetry, no nodules Current Meds 1. Cialis 5 MG Oral Tablet; Take 1 tablet daily; Therapy: 11Oct2017 to (Evaluate:16Jan2018) Requested for: 01Hep3742; Last Rx:[id number] Ordered 2. LevoFLOXacin 500 MG Oral Tablet; TAKE 1 TABLET DAILY UNTIL FINISHED; Therapy: 22Nov2017 to (Evaluate:42Nqu5342) Requested for: 81Erk4697; Last Rx:[id number] Ordered 3. Tamsulosin HCl - 0.4 MG Oral Capsule; TAKE 1 CAPSULE Daily; Therapy: 17Uyf5118 to (Evaluate:33Uva4700) Requested for: 22Fth1257; Last Rx:[id number] Ordered 4. Vitamin D3 5000 UNIT Oral Capsule; TAKE DIRECTED; Therapy: 33Iuq9144 to (Last Rx:[id number]) Ordered Allergies 1. No Known Drug Allergies 2. Mold Vitals Recorded: 19Dec2017 02:00PM Temperature 98.6 F Heart Rate 72 Systolic 120 Diastolic 78 Not able to obtain height Patient stated height Height 6 ft 1 in Weight 165 lb BMI Calculated 21.77 BSA Calculated 1.98 Procedure Procedure: transrectal prostate ultrasound, prostate biopsy. Indication: elevated PSA and abnormal digital rectal examination. Risks and benefits were discussed with the patient. We discussed possible complications, including infection and bleeding. Written consent was obtained prior to the procedure. Anesthesia: anesthetic jelly Antibiotics: Levofloxacin Procedure Note: Patient was placed in the lateral decubitus position.. Digtal Rectal Examination demonstrated a prostate asymmetrical. Prostate dimensions were a volume of 68.8cc. Cysts noted. Calcifications noted. The biopsy cores were obtained by standard 16 Core Pattern. the excised lesion was place in buffered formalin and sent for pathlogy.. Patient Status:. the patient tolerated the procedure well.. The patient experienced the following complications: there were no complications. Plan Elevated PSA ?? Gentamicin Sulfate 40 MG/ML Injection Solution Rx By: Cal Rubio; For: Elevated PSA; Dose of 80 MG; Intramuscular; SIRI = N; Administered by: Ольга WhitmoreN.: 12/19/2017 2:13:00 PM; Last Updated By: Ольга Whitmore; 12/19/2017 2:14:22 PM ?? Lidocaine HCl - 2 % Injection Solution Rx By: Cal Rubio; For: Elevated PSA; Dose of 10 ML; Other; SIRI = N; Administered by: Ольга Whitmore.N.: 12/19/2017 2:14:00 PM; Last Updated By: Ольга Whitmore; 12/19/2017 2:14:22 PM ?? Lidocaine HCl - 2 % Injection Solution Rx By: Cal Rubio; For: Elevated PSA; Dose of 2 ML; Other; SIRI = N; Administered by: Ольга Whitmore.N.: 12/19/2017 2:14:00 PM; Last Updated By: Ольга Whitmore; 12/19/2017 2:15:13 PM 67 year old male with elevated PSA and abnormal SHAWNEE. TRUS/Bx was performed today. He tolerated the procedure well. He was counseled about signs and symptoms for which he should contact the office, aswell as about what to expect. He will be contacted when his results become available. He will also further discuss his voiding symptoms. Signatures Electronically signed by : Ольга Whitmore R.N.; Dec 19 2017 2:15PM TECHNICAL SUPPORT ASSOCIATE (Co-author) Electronically signed by : Cal Rubio M.D.; Dec 19 2017 4:15PM TECHNICAL SUPPORT ASSOCIATE (Author) documented in this encounter Plan of Treatment Not on file documented as of this encounter Visit Diagnoses Not on filedocumented in this encounter Care Teams Motion Pictures Cartoonist Relationship Specialty Start Date End Date Fabiano Mosley MD PCP - General FAMILY PRACTICE 11/01/17 02/21/21 documented as of this encounter
--- OUTSIDE RECORDS SUMMARY | 2024-04-12 08:51 | XMS_ITS | Encounter Summary ---
Author Organization [facility] Address [address] [place] [address]. [place], [place] [address] [place] [address] Care Team Providers Care Quartz Orientator Name Role Phone Fabiano Mosley MD Primary Care Provider [phone] Encounter Details Date Type Department Care Team (Late st Contact Info) Description 12/19/2017 Orders Only [facility] [place] [address] Cal Rubio MD [address] [place] [address] [place] [address] Social History Tobacco Use Types Packs/Day Years [...] BY PATHOLOGIST (12/19/2017 12:00 AM CDT) PATHOLOGY ?[facility] ? Department of Pathology ? [address] ? [place], [place] ??[address] ? [id number] ? Pathology Report ? Name: LIZ TURCIOS ? Specimen #: [id number] Age: 2 1950 (Age: 67) ? Location: [facility] Sex: M ? Procedure Date: 12/19/2017 Hospital #: [id number] ? Date Received: 12/20/2017 Date Reported: 12/25/2017 [...] PRISCILLA TIDWELL ??Pathologist pb/12/24/2017 Electronically Signed Out ? [facility] 12/19/2017 12/20/2017 8:4 4 AM CDT Comment:PROSTATE, NEEDLE BIO PSY, LEFT LATERAL BASE&PROSTATE, NEEDLE BIOPSY, LEFT LATERAL MID&PROSTATE, NEEDLE BIOPSY, LEFT LATERAL APEX&PROSTATE, NEEDLE BIOPSY, LEFT MEDIAL BASE&PROSTATE, NEEDLE BIOPSY, LEFT MEDIAL MID us Cal Rubio MD PATHOLOGY/CYTOLOGY ORDERABLES Final Result Performing Organization Address City/State/[facility] Co de Phone Number [facility] [address] [place] [address], documented in this encounter Visit Diagnoses Not on filedocumented in this encounter Care Teams Quartz Orientator Relationship Specialty Start Date End Date Fabiano Mosley MD PCP - General FAMILY PRACTICE 11/01/17 02/21/21 documented as of this encounter
--- OUTSIDE RECORDS SUMMARY | 2024-04-12 08:51 | XMS_ITS | Encounter Summary ---
Author Organization [facility] Address [address] [place] [address]. [address] [address] Care Team Providers Care Transit Manager Name Role Phone Fabiano Mosley MD Primary Care Provider [phone] Encounter Details Date Type Department Care Team (Latest Contact Info) Description 01/03/[address] [facility] , Generic ConversionMD Social History Tobacco Use Types Packs/Day Years [...] as of this encounter Progress Notes * Generic Conversion MD Sundar - 01/03/2018 4:53 PM CDT Message Recorded as Task Date: 12/28/2017 06:26 PM, Created By: Landon Rubio Task Name: Informational Assigned To: [facility] [place] - Urology Joanne Nurse Team Regarding Patient: Cruz Carreon, Status: In Progress Comment: Landon Rubio - 28 Dec 2017 6:26 PM TASK CREATED Needs f/u in 4-6 weeks with PSA and cysto Ольга Whitmore 31 Dec 2017 12:10 PM TASK IN PROGRESS Ольга Whitmore 31 Dec 2017 12:19 PM TASK EDITED Patient cysto scheduled 02/04. PSA order faxed to Lab and I instructed patient to get this done prior to appt. He verbalized understanding. Patient states that he is waking up a lot at night to pee and wants to know if the Flomax and the Cialis is the best thing for him to be doing for that. Please advise. Landon Rubio - 03 Jan 2018 4:39 PM TASK EDITED further recommendations after Ольга Ortiz - 03 Jan 2018 4:53 PM TASK EDITED Called patient to inform and he verbalized understanding. Signatures Electronically signed by : Ольга Whitmore R.N.; Jan 03 2018 4:53PM DATABASE COORDINATOR (Author) documented in this encounter Plan of Treatment Not on file documented as of this encounter Visit Diagnoses Not on filedocumented in this encounter Care Teams Transit Manager Relationship Specialty Start Date End Date Fabiano Mosley MD PCP - General FAMILY PRACTICE 11/01/17 02/21/21 documented as of this encounter
--- OUTSIDE RECORDS SUMMARY | 2024-04-12 08:51 | XMS_ITS | Encounter Summary ---
Author Organization [facility] Address [address] [place] [address]. [place], [place] [address] [place] [address] Care Team Providers Care Test Desk Operator Name Role Phone Genna Guerrero MD Primary Care Provider [phone] Encounter Details Date Type Department Care Team (Latest Contact Info) Description 12/27/2017 Abstract [facility] Genna Guerrero MD [address] [place] [address] Social History Tobacco Use Types [...] Procedure Name Priority Date/Time Associated Diagnosis Comments US RETROPERITONEAL COMP Routine 12/28/19 18 1:00 PM CDT documented in this encounter Results * US RETROPERITONEAL COMP (12/27/2017 1:00 PM CDT) Anatomical Region Laterality Modality Abdomen Ultrasound 12/27/2017 1:00 PM CDT 12/27/2017 1:00 PM CDT Narrative 12/27/2017 2:26 PM CDT EXAMINATION: Abdominal Aortic Ultrasound. EXAM DATE/TIME: 12/27/2017 12:47 PM REASON FOR EXAM: ??N ?? Smoking history. No current physical complaints. COMPARISON: None TECHNIQUE: Transabdominal ultrasound evaluation of the aorta was performed for analysis of grayscale and color Doppler imaging characteristics. FINDINGS:. ?? The IVC is patent. The proximal aorta measures 23 x 20 mm. The mid aorta measures 22 x 23 mm. The distal aorta measures 14 x 19 mm. There is flow at all levels of the aorta with very minimal atherosclerotic disease at each level. The proximal right iliac artery measures 9 x 12 mm. The proximal left iliac artery measures 12 x 11 mm. Nonlaminar turbulent blood flow is seen in the distal aorta proximal to the bifurcation with focal areas of prominent eccentric atherosclerotic disease. IMPRESSION: 1. ??No evidence of abdominal aortic aneurysm 2. ??Atherosclerotic disease throughout the aorta most prominent distally Interpreted By: Efren Dueñas MD, 12/27/2017 2:23 PM Order Doctor: GENNA GUERRERO Procedure Note Moy Kwok MD - 02/26/2018 EXAMINATION: Abdominal Aortic Ultrasound. EXAM DATE/TIME: 12/27/2017 12:47 PM REASON FOR EXAM: N Smoking history. No current physical complaints. COMPARISON: None TECHNIQUE: Transabdominal ultrasound evaluation of the aorta was performed for analysis of grayscale and color Doppler imaging characteristics. FINDINGS:. The IVC is patent. The proximal aorta measures 23 x 20 mm.The mid aorta measures 22 x 23 mm. The distal aorta measures 14 x 19 mm. There is flow at all levels of the aorta with very minimal atherosclerotic disease at each level. The proximal right iliac artery measures 9 x 12 mm. The proximal left iliac artery measures 12 x 11 mm. Nonlaminar turbulent blood flow is seen in the distal aorta proximal to the bifurcation with focal areas of prominent eccentric atherosclerotic disease. IMPRESSION: 1. No evidence of abdominal aortic aneurysm 2. Atherosclerotic disease throughout the aorta most prominent distally Interpreted By: Efren Dueñas MD, 12/27/2017 2:23 PM Order Doctor: GENNA GUERRERO us Genna Guerrero MD ULTRASOUND Final Result documented in this encounter Visit Diagnoses Not on filedocumented in this encounter Care Teams Test Desk Operator Relationship Specialty Start Date End Date Genna Guerrero MD PCP - General FAMILY PRACTICE 11/01/17 02/21/21 documented as of this encounter
--- OUTSIDE RECORDS SUMMARY | 2024-04-12 08:51 | XMS_ITS | Encounter Summary ---
Author Organization [facility] Address [address] [place] [address]. [place], [place] [address] [place] [address] Care Team Providers Care Rotary Adjuster Name Role Phone Fabiano Mosley MD Primary Care Provider [phone] Reason for Referral * Imaging (Routine) - Closed Specialty Diagnoses / Procedures Referred By Contac t Referred To Contact Diagnoses Emphysema lung (CMS/HCC HHS/HCC) Fibrosis of lung (CMS/HCC HHS/HCC) Solitary pulmonary nodule Procedures CT CHEST WO Fabiano Delcid MD Phone: tel: fax: [place] [address] Phone: tel: Referral ID Status Reason Start Date Expiration Date Visits Re quested Visits Authorized [id number] Closed 01/10/2018 02/09/2019 1 1 Reason for Visit * Imaging (Routine) - Closed Specialty Diagnoses / Procedures Referred By Contac t Referred To Contact Diagnoses Emphysema lung (CMS/HCC HHS/HCC) Fibrosis of lung (CMS/HCC HHS/HCC) Solitary pulmonary nodule Procedures CT CHEST Fabiano Arguelles MD Phone: tel: fax: [place] [address] Phone: tel: Referral ID Status Reason Start Date Expiration Date Visits Re quested Visits Authorized [id number] Closed 01/10/2018 02/09/2019 1 1 Encounter Details Date Type Department Care Team (Late st Contact Info) Description 02/01/2018 2:00 PM CDT - 02/01/2018 11:59 PM CDT Hospital Encounter [facility] [place] [address] Fabiano Mosley MD [address] [place] [address] Discharge Disposition: Home or Self Care (Routine [...] 1 tablet by mouth daily. 10/11/2017 06/10/2018 tamsulosin 0.4 MG Cap Take 0.4 mg by mouth daily. 06/11/2018 documented as of this encounter Plan of Treatment Not on file documented as of this encounter Procedures Procedure Name Priority Date/Time Associated Diagnosis Comments CT CHEST WO CON Routine 02/01/2018 3:04 PM CDT Emphysema lung (CMS/HCC HHS/HCC) Fibrosis of lung (CMS/HCC HHS/HCC) Solitary pulmonary nodule documented in this encounter Results * CT CHEST WO CON (02/01/2018 3:04 PM CDT) Anatomical Region Laterality Modality Chest Computed Tomogra phy 02/03/2018 11:3 8 AM CDT Impressions 02/03/2018 12:03 PM CDT IMPRESSION: 1. ??Stable 5 mm right upper lobe and 9 mm right upper lobe subpleural nodular density versus pleural thickening or subpleural fibrosis. 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 Continued follow-up is recommended with CT in 3 months without contrast. 2. ??No new or progressive findings. Narrative 02/03/2018 12:03 PM CDT EXAMINATION: CT CHEST WITHOUT CONTRAST [...] deformity. 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
--- OUTSIDE RECORDS SUMMARY | 2024-04-12 08:51 | XMS_ITS | Encounter Summary ---
Author Organization [facility] Address [address] [place] [address]. [place] [address] Care Team Providers Care Envelope Folding Machine Operator Name Role Phone Fabiano Mosley MD Primary Care Provider [phone] Derrick Herrera MD Unavailable [phone] Reason for Visit * Reason Comments Colonoscopy Report (SCAN) Encounter Details Date Type Department Care Team ([facility] Contact Info) Description 01/31/2018 Scan HEALTH INFO [facility] Scanned, Documents Colonoscopy Report (SCAN) Social History Tobacco Use [...] Comments COLONOSCOPY GENERIC (SCAN ORDER) Routine 01/31/2018 documented in this encounter Results * COLONOSCOPY (01/31/2018) us Documents Scanned SCANNING [facility] documented in this encounter Visit Diagnoses Not on filedocumented in this encounter Care Teams Envelope Folding Machine Operator Relationship Specialty Start Date End Date Fabiano Mosley MD PCP - General FAMILY PRACTICE 11/01/17 02/21/21 Derrick Herrera MD [address] [address] EP Ticket Speculator CARDIOVASCULAR DISEASE 12/11/18 documented as of this encounter
--- OUTSIDE RECORDS SUMMARY | 2024-04-12 08:51 | XMS_ITS | Encounter Summary ---
Author Organization [facility] Address [address] [place] [address]. [place] [address] Care Team Providers Care Steamer Tender Name Role Phone Fabiano Mosley MD Primary Care Provider [phone] Encounter Details Date Type Department Care Team (Latest Contact Info) Description 12/19/2017 8:43 AM CDT - 12/19/2017 11:59 PM CDT Hospital Encounter [facility] [place] [address] Discharge Disposition: Home or Self Care (Routine [...] on filedocumented in this encounter Care Teams Steamer Tender Relationship Specialty Start Date End Date Fabiano Mosley MD PCP - General FAMILY PRACTICE 11/01/17 02/21/21 documented as of this encounter
--- OUTSIDE RECORDS SUMMARY | 2024-04-12 08:51 | XMS_ITS | Encounter Summary ---
Author Organization [facility] Address [address] [place] [address]. [address] [address] Care Team Providers Care Technician Anatomic Pathology Name Role Phone Fabiano Mosley MD Primary Care Provider [phone] Encounter Details Date Type Department Care Team (Latest Contact Info) Description 12/31/2017 Abstract [facility] , Moy Sanderson MD Social History Tobacco Use Types Packs/Day [...] PROSTATE SPECIFIC ANTIGEN,TOTAL Routine 02/22/2018 1:50 PM TECHNICAL MAINTENANCE TECHNICIAN documented in this encounter Results * (ABNORMAL) PROSTATE SPECIFIC ANTIGEN,TOTAL (02/22/2018 1:50 PM TECHNICAL MAINTENANCE TECHNICIAN) PSA 20.70(H) <4.00 NG/ML [facility] TO EPIC CONVERSION Comment: Result Comment: Test was performed using the Siemens method. ??Results obtained with other assay methods or kits cannot be used interchangeably with results obtained by the Siemens method. 02/22/2018 1:50 PM TECHNICAL MAINTENANCE TECHNICIAN 02/22/2018 1:50 PM TECHNICAL MAINTENANCE TECHNICIAN Narrative [facility] TO EPIC CONVERSION - 02/22/2018 2:27 PM TECHNICAL MAINTENANCE TECHNICIAN Result Communication: No patient communication needed at this time us Landon Rubio MD LABORATORY Final Result [facility] TO EPIC CONVERSION documented in this encounter Visit Diagnoses Not on filedocumented in this encounter Care Teams Technician Anatomic Pathology Relationship Specialty Start Date End Date Fabiano Mosley MD PCP - General FAMILY PRACTICE 11/01/17 02/21/21 documented as of this encounter
--- OUTSIDE RECORDS SUMMARY | 2024-04-12 08:51 | XMS_ITS | Encounter Summary ---
Author Organization [facility] Address [address] [place] [address]. [place], [place] [address] [place] [address] Care Team Providers Care Brewing Director Name Role Phone Fabiano Mosley MD Primary Care Provider [phone] Reason for Visit * Auth/Cert Specialty Diagnoses / Procedures Referred By Contac t Referred To Contact Diagnoses SCREENING Procedures COLONOSCOPY SCREENING Referral ID Status Reason Start Date Expiration Date Visits Re quested Visits Authorized [id number] 1 1 Encounter Details Date Type Department Care Team (Late st Contact Info) Description 01/31/2018 12:00 PM CDT - 01/31/2018 12:40 PM CDT Surgery [facility] [place] [address] Fletcher Mckeon MD [address] [address] COLONOSCOPY WITH ASCENDING COLON POLYPECTOMY WITH COLD SNARE, SIGMOID COLON POLYPECTOMY X3 WITH COLD SNARE Surgery Details Date/Time Status Location OR Service Patient Class Case Class Case Type Trauma Case? 01/31/2018 12:00 PM Posted [facility] - [facility]ive No Panel 1 Procedure LRB Anes Op Region Wound Class Comments COLONOSCOPY WITH ASCENDING COLON POLYPECTOMY WITH COLD SNARE, SIGMOID COLON POLYPECTOMY X3 WITH COLD SNARE N/A General Clean Contaminated COLON POLYPS Surgeon Surgeon Role Service Panel Fletcher Mckeon MD Primary Gastroenterology 1 Case Notes SCHED BY FAX 12/14/17 documented in this encounter Social History Tobacco [...] Sign Reading Time Taken Comments Blood Pressure 123/87 01/31/2018 12:25 PM CDT Pulse 63 01/31/2018 12:25 PM CDT Temperature 36.9 ??C (98.4 ??F) 01/31/2018 12:25 PM C DT Respiratory Rate 19 01/31/2018 12:25 PM CDT Oxygen Saturation 99% 01/31/2018 12:25 PM CDT Inhaled Oxygen Concentration - - Weight 72.6 kg (160 lb) 01/28/2018 8:50 AM CDT Height 185.4 cm (6' 1 ) 01/28/2018 8:50 AM CDT Body Mass Index 21.11 01/28/2018 8:50 AM CDT documented in this encounter Discharge Instructions * Discharge Instructions* Fletcher Mckeon MD - 01/31/2018 2:03 PM CDT Four colon polyps removed. Call Dr. Mckeon for biopsy results in 2 weeks at [phone] * Attachments The following attachments cannot be sent through Care Everywhere. * COLONOSCOPY DISCHARGE INSTRUCTIONS (WOLOF) documented in this encounter Medications at Time of Discharge tadalafil 10 MG tablet Take 10 mg by mouth daily as needed for Erectile Dysfunction. 05/20/2018 tadalafil 5 MG tablet Take 1 tablet by mouth daily. 10/11/2017 06/10/2018 tamsulosin 0.4 MG Cap Take 0.4 mg by mouth daily. 06/11/2018 documented as of this encounter H&P Notes * Fletcher Mckeon MD - 01/31/2018 1:36 PM CDT Fletcher Mckeon MD, FACG, FACP Attending Provider: Fletcher Mckeon MD PCP: Fabiano Mosley MD PATIENT: Cruz Carreon : 1950 Date of Visit: 01/31/2018 HPI: Cruz Carreon is an 67-year-old male who presents for screening for colon cancer GI review of systems is negative. No endocarditis risk factors. There is no problem list on file for this patient. Past Medical History: Diagnosis Date ??? Prostatitis Past Surgical History: Procedure Laterality Date ??? GI PROSTATE BIOPSY No family history on file. Social History Socioeconomic History ??? Marital status: [...] Social History Narrative ??? Not on file Current Facility-Administered Medications: ??? lactated ringers infusion, , Intravenous, Continuous, Lillian Hussein MD Facility-Administered Medications Ordered in Other Encounters: ??? lactated ringers infusion, , Intravenous, Continuous PRN, Rony Hall CRNA No Known Allergies Travel Exposure: Traveled outside of the [place] in the last month: No No current facility-administered medications on file prior to encounter. Current Outpatient Medications on File Prior to Encounter Medication Sig ??? tadalafil 10 MG tablet Take 10 mg by mouth daily as needed for Erectile Dysfunction. ??? tamsulosin 0.4 MG Cap Take 0.4 mg by mouth daily. Blood pressure 123/87, pulse 63, temperature 98.4 ??F (36.9 ??C), temperature source Temporal, resp. rate 19, height 6' 1 (1.854 m), weight 72.6 kg (160 lb), SpO2 99 %. Physical Exam Constitutional: he appears well-developed and well-nourished. Cardiovascular: Normal rate. Pulmonary/Chest: Breath sounds normal. Abdominal: Soft. There is no tenderness. Musculoskeletal: he exhibits no edema. Assessment & Plan: Colonoscopy FLETCHER MCKEON MD 01/31/2018 documented in this encounter OR Notes * Op Note - Fletcher Mckeon MD - 01/31/2018 1:59 PM CDT FLETCHER MCKEON MD, FACG, FACP COLONOSCOPY This is a 67-year-old male with history of BPH who now presents for colonoscopy for screening for colon cancer. GI review of systems is negative. No endocarditis risk factors. No Known Allergies Medications: see list. Family history: negative for colon cancer. GENERAL: WDWN patient in NAD. VITALS: Stable. LUNGS: Clear. HEART: RRR S1/S2 normal. ABDOMEN: NABS/NT. The procedure of colonoscopy, its indications, alternatives of barium studies and risks including perforation, bleeding, infection, reaction to medication as well as the possible need for blood or surgery were discussed with the patient prior to the procedure. The patient voices understanding, agrees to proceed and provides informed consent. COLONOSCOPY INDICATION: Screening for colon cancer. POST-OP: Four polyps removed. SEDATION: Per Anesthesia PREP: Good. With the patient in the left lateral decubitus position, the Olympus [id number] colonoscope was introduced into the rectum and advanced easily to the Terminal Ileum. Careful inspection of the mucosa was made upon insertion and withdrawal of the endoscope. FINDINGS: Terminal ileum: distal 5 cm normal. Cecum, transverse colon, descending colon and rectum including retroflexion normal. Ascending colon: 8 mm sessile polyp removed with snare polypectomy with excellent hemostasis. Sigmoid colon: 8 mm sessile polyp x 3 removed with snare polypectomy with excellent hemostasis. No masses, AVMs, colitis or diverticulosis seen. No complications, blood loss or implants ASSESSMENT AND PLAN: Three small polyps removed: if adenomatous repeat colonoscopy in three years otherwise screening colonoscopy in 10 years. Thank you very much for allowing me to share in the care of your patient. The patient will follow-up with Fabiano Mosley MD . Fletcher Mckeon M.D. documented in this encounter Plan of Treatment Not on file documented as of this encounter Procedures Procedure Name Priority Date/Time Associated Diagnosis Comments COLONOSCOPY WITH BIOPSY 01/31/2018 1:25 PM CDT SCREENING Case Notes SCHED BY FAX 12/14/17 documented in this encounter Visit Diagnoses Not on filedocumented in this encounter Administered Medications Inactive Administered Medications - up to 3 most recent administrations Medication Order MAR Action Action Date Dose Rate Site lactated ringers infusion at 10 mL/hr, Intravenous, Continuous, Starting on Laury 01/31/18 at 1215, Until Laury 01/31/18 at 1635, Infuse at TKO rate, Pre-Op documented in this encounter Active and Recently Administered Medications Times are shown in CDT. Continuous Medication Order 01/29/2018 01/30/2018 01/31/2018 lactated ringers infusion at 10 mL/hr, Intravenous, Continuous, Starting on Laury 18 at 1215, Until Laury 01/31/18 at 1635, Infuse at TKO rate, Pre-Op 1215 (Canceled Entry - Provider: Automatic Discharge Provider - Comment: Automatically canceled at discontinue of medication order) documented in this encounter Care Teams Brewing Director Relationship Specialty Start Date End Date Fabiano Mosley MD PCP - General FAMILY PRACTICE 11/01/17 02/21/21 documented as of this encounter
--- OUTSIDE RECORDS SUMMARY | 2024-04-12 08:51 | XMS_ITS | Encounter Summary ---
Author Organization [facility] Address [address] [place] [address]. [place] [address] Care Team Providers Care Cutting Tool Sharpener Name Role Phone Fabiano Mosley MD Primary Care Provider [phone] Encounter Details Date Type Department Care Team (Latest Contact Info) Description 01/15/2018 Abstract [facility] Moy Kwok MD Social History [...] on filedocumented in this encounter Care Teams Cutting Tool Sharpener Relationship Specialty Start Date End Date Fabiano Mosley MD PCP - General FAMILY PRACTICE 11/01/17 02/21/21 documented as of this encounter
--- OUTSIDE RECORDS SUMMARY | 2024-04-12 08:51 | XMS_ITS | Encounter Summary ---
Author Organization [facility] Address [address] [place] [address]. [place] [address] Care Team Providers Care Screening Tech Name Role Phone Fabiano Mosley MD Primary Care Provider [phone] Encounter Details Date Type Department Care Team (Latest Contact Info) Description 01/31/2018 Abstract [facility] Medical Group Moy Kwok MD Social History [...] on filedocumented in this encounter Care Teams Screening Tech Relationship Specialty Start Date End Date Fabiano Mosley MD PCP - General FAMILY PRACTICE 11/01/17 02/21/21 documented as of this encounter
--- OUTSIDE RECORDS SUMMARY | 2024-04-12 08:51 | XMS_ITS | Encounter Summary ---
Author Organization [facility] Address [address] [place] [address]. [place], [place] [address] [place] [address] Care Team Providers Care Shipbuilding Draftsperson Name Role Phone Fabiano Mosley MD Primary Care Provider [phone] Encounter Details Date Type Department Care Team (Latest Contact Info) Description 12/28/2017 Abstract [facility] Moy Kwok MD Social History Tobacco Use Types Packs/Day Years Used Date Smoking Tobacco: Never Assessed Sex and Gender Information Value Date Recorded Sex Assigned at Not on file Legal Sex Male 7:19 PM CDT Gender Identity Not on file Sexual Orientation Not on file documented as of this encounter Progress Notes * Landon uRbio MD - 12/28/2017 6:20 PM CDT Message Message: I contacted Mr. Carreon, and explained the issue with the tissue processing. No malignancywas identified, but the evaluation was suboptimal. Acute and chronic inflammation was noted. I willplan to treat him with a course of antibiotics, and I will plan to see him in 4-6 weeks with repeatPSA. He still complains of significant voiding complaints, despite daily Cialis, and tamsulosin. Hewill also need cystoscopy. Active Problems 1. Advance directive discussed with patient (V65.49) (Z71.89) 2. 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 BPH (benign prostatic hyperplasia) (600.00) (N40.0) 4. Chronic prostatitis (601.1) (N41.1) 5. Cigarette nicotine dependence (305.1) (F17.210) 6. Dysuria (788.1) (R30.0) 7. Elevated PSA (790.93) (R97.20) 8. Emphysema (492.8) (J43.9) 9. Encounter for prostate cancer screening (V76.44) (Z12.5) 10. Erectile dysfunction (607.84) (N52.9) 11. Fatigue (780.79) (R53.83) 12. Fibrosis, lung (515) (J84.10) 13. Fracture of wrist (814.00) (S62.109A) 14. Hearing loss, bilateral (389.9) (H91.93) 15. Hemorrhoids (455.6) (K64.9) 16. Low serum vitamin D (790.6) (R79.89) 17. Lung nodule (793.11) (R91.1) 18. Lung nodule, solitary (793.11) (R91.1) 19. Risk for sexually transmitted disease (V69.2) (Z72.51) 20. Smoking greater than 30 pack years (305.1) (F17.210) 21. Vision changes (368.9) (H53.9) 22. Vitamin D deficiency (268.9) (E55.9) Current Meds 1. Cialis 5 MG Oral Tablet; Take 1 tablet daily; Therapy: 11Oct2017 to (Evaluate:16Jan2018) Requested for: 48Mvl6139; Last Rx:[id number] Ordered 2. LevoFLOXacin 500 MG Oral Tablet; TAKE 1 TABLET DAILY UNTIL FINISHED; Therapy: 22Nov2017 to (Evaluate:86Irq6993) Requested for: 02Uep2167; Last Rx:[id number] Ordered 3. Tamsulosin HCl - 0.4 MG Oral Capsule (Flomax); TAKE 1 CAPSULE Daily; Therapy: 19Nov2017 to (Evaluate:23Apr2018) Requested for: 60Uft4821; Last Rx:[id number] Ordered 4. Vitamin D3 5000 UNIT Oral Capsule; TAKE DIRECTED; Therapy: 81Bwd4235 to (Last Rx:[id number]) Ordered Allergies 1. No Known Drug Allergies 2. Mold Plan 1. Sulfamethoxazole-Trimethoprim 800-160 MG Oral Tablet (Bactrim DS); TAKE 1 TABLET TWICE DAILY WITH FOOD Rx By: Landon Rubio; Dispense: 14 Days ; #:28 Tablet; Refill: 0; For: Chronic prostatitis; SIRI =N; Sent To: [facility] #[id number] Signatures Electronically signed by : Landon Rubio M.D.; Dec 28 2017 6:25PM POLY AREA SUPERVISOR (Author) documented in this encounter Plan of Treatment Not on file documented as of this encounter Visit Diagnoses Not on filedocumented in this encounter Care Teams Shipbuilding Draftsperson Relationship Specialty Start Date End Date Fabiano Mosley MD PCP - General FAMILY PRACTICE 11/01/17 02/21/21 documented as of this encounter
--- OUTSIDE RECORDS SUMMARY | 2024-04-12 08:51 | XMS_ITS | Encounter Summary ---
Author Organization [facility] Address [address] [place] [address]. [place], [place] [address] [place] [address] Care Team Providers Care Landing Support Specialist Name Role Phone Fabaino Mosley MD Primary Care Provider [phone] Encounter Details Date Type Department Care Team (Latest Contact Info) Description 11/23/2017 Abstract [facility] Medical Group Social History Tobacco Use Types Packs/Day Years Used Date Smoking Tobacco: Never Assessed Sex and Gender Information Value Date Recorded Sex Assigned at Not on file Legal Sex Male 7:19 PM CDT Gender Identity Not on file Sexual Orientation Not on file documented as of this encounter Miscellaneous Notes * Letter - Fabiano Mosley MD - 11/23/2017 12:00 AM CDT Dear Mr. Carreon, Your test results have returned and are listed below: Message: Recent CT of your lungs showed some abnormalities to include mild emphysema, fibrosis, andsome small nodules. In light of these findings we will need to have a follow up Low Dose CT of chest around 02/01/2018. If you have any questions, please don't hesitate to call the office. Sincerely, Results/Data [id number] 02:00PM CT Lung Screening WO CT LUNG SCREENING: EXAM: LUNG SCREENING LOW-DOSE CT THORAX WITHOUT CONTRAST DATE: 11/01/2017 HISTORY: Asymptomatic patient meeting NCCN high-risk criteria for lung screening. COMPARISON: None TECHNIQUE: Noncontrast, helical, low-dose CT (LDCT) chest per standard departmental protocol. A dose lowering technique was used for this procedure, which may include, but is not limited to, dose reduction technique, automated exposure control, iterative reconstruction, ALARA (As Low As Reasonably Achievable), or Image Gently techniques. FINDINGS: Lung Screening Specific (LUNG-RADS): 2 Comment Segment/Lobe Location Slice 134 ([facility]) Status Baseline Type Solid Equivalent Diameter 8.9 mm Volume 365.7 mm? Mass 367.2 mg [place] Long/Short 12.4 / 4.6 mm Spiculated No Volume Doubling Time - Mass Doubling Time - Lung-RADS Category 4A 1 Comment Segment/Lobe Right Upper Lobe Location Slice 137 ([facility]) Status Baseline Type Solid Equivalent Diameter 6.7 mm Volume 156.2 mm? Mass 121.9 mg [place] Long/Short 11.2 / 4.7 mm Spiculated No Volume Doubling Time - Mass Doubling Time - Lung-RADS Category 3 Potentially Significant Incidentals (LUNG-RADS category S): None. Pulmonary Incidentals: Subapical pleural fibrosis bilaterally. Mild subapical paraseptal emphysema. No pneumothorax. Airways within normal limits. Other Incidentals: Scattered atherosclerosis. IMPRESSION: 1. LUNG-RADS category 4a: Suspicious-findings for which additional diagnostic testing and/or tissue sampling is recommended. 2. LUNG-RADS category S: Negative, no new/unknown potentially significant incidental findings requiring urgent additional evaluation. 3. Other incidental findings as above. RECOMMENDATIONS: Follow-up LDCT Chest in 3 months (on or around 02/01/2018). Thank you for choosing the [facility]'s Lung Screening Program. Signatures Electronically signed by : Fabiano Mosley M.D.; Nov 27 2017 10:57AM CUSTOMER SERVICE ENGINEER (Author) Electronically signed by : Fabiano Mosley M.D.; Nov 28 2017 9:39AM CUSTOMER SERVICE ENGINEER (Author) documented in this encounter Plan of Treatment Not on file documented as of this encounter Visit Diagnoses Not on filedocumented in this encounter Care Teams Landing Support Specialist Relationship Specialty Start Date End Date Fabiano Mosley MD PCP - General FAMILY PRACTICE 11/01/17 02/21/21 documented as of this encounter
--- OUTSIDE RECORDS SUMMARY | 2024-04-12 08:51 | XMS_ITS | Encounter Summary ---
Author Organization [facility] Address [address] [place] [address]. [place], [place] [address] [place] [address] Care Team Providers Care Concrete Floor Installer Name Role Phone Fabiano Mosley MD Primary Care Provider [phone] Reason for Visit * Auth/Cert Specialty Diagnoses / Procedures Referred By Orlandoac t Referred To Contact Diagnoses SCREENING Procedures COLONOSCOPY SCREENING Referral ID Status Reason Start Date Expiration Date Visits Re quested Visits Authorized [id number] 1 1 Encounter Details Date Type Department Care Team (Latest Contact Info) Description 01/31/2018 11:04 AM CDT - 01/31/2018 2:35 PM CDT Hospital Encounter [facility] [place] [address] Fletcher Mckeon MD [address] [address] Discharge Disposition: Home or Self Care (Routine [...] Sign Reading Time Taken Comments Blood Pressure 123/90 01/31/2018 2:30 PM CDT Pulse 64 01/31/2018 2:30 PM CDT Temperature 36.9 ??C (98.5 ??F) 01/31/2018 2:05 PM CD T Respiratory Rate 14 01/31/2018 2:30 PM CDT Oxygen Saturation 100% 01/31/2018 2:30 PM CDT Inhaled Oxygen Concentration - - [...] for biopsy results in 2 weeks at [id number] * Attachments The following attachments cannot be sent through Care Everywhere. * COLONOSCOPY DISCHARGE INSTRUCTIONS (SAMMARINESE) documented in this encounter Medications at Time [...] the left lateral decubitus position, the Olympus [id number] colonoscope was introduced into the rectum and [...] order) documented in this encounter Care Teams Concrete Floor Installer Relationship Specialty Start Date End Date Fabiano Mosley MD PCP - General FAMILY PRACTICE 11/01/17 02/21/21 documented as of this encounter
--- OUTSIDE RECORDS SUMMARY | 2024-04-12 08:51 | XMS_ITS | Encounter Summary ---
Author Organization [facility] Address [address] [place] [address]. [place], [place] [address] [place] [address] Care Team Providers Care Superintendent Mechanical Name Role Phone Genna Guerrero MD Primary Care Provider [phone] Reason for Referral * Imaging (Routine) - Closed Specialty Diagnoses / Procedures Referred By Contac t Referred To Contact Diagnoses Smoking greater than 30 pack years Procedures US AORTA USV AAA SCREENING Genna Guerrero MD Phone: tel: fax: [place] [address] Phone: tel: Referral ID Status Reason Start Date Expiration Date Visits Re quested Visits Authorized [id number] Closed 12/25/2017 01/24/2019 1 1 Reason for Visit * Imaging (Routine) - Closed Specialty Diagnoses / Procedures Referred By Contac t Referred To Contact Diagnoses Smoking greater than 30 pack years Procedures US AORTA USV AAA SCREENING Genna Guerrero MD Phone: tel: fax: [place] [address] Phone: tel: Referral ID Status Reason Start Date Expiration Date Visits Re quested Visits Authorized [id number] Closed 12/25/2017 01/24/2019 1 1 Encounter Details Date Type Department Care Team (Late st Contact Info) Description 12/27/2017 12:47 PM CDT - 12/27/2017 11:59 PM CDT Hospital Encounter [facility] [place] [address] Genna Guerrero MD [address] [place] [address] Discharge Disposition: Home or Self [...] Name Priority Date/Time Associated Diagnosis Comments US AORTA Routine 12/27/2017 1:21 PM CDT Smoking greater than 30 pack years documented in this encounter Results * US AORTA (12/27/2017 1:21 PM CDT) Anatomical Region Laterality Modality Abdomen Ultrasound 12/27/2017 2:23 PM CDT Narrative 12/27/2017 2:25 PM CDT EXAMINATION: Abdominal Aortic Ultrasound. EXAM [...] PM Order Doctor: GENNA GUERRERO Procedure Note Efren Dueñas MD - 12/27/2017 EXAMINATION: Abdominal Aortic Ultrasound. EXAM DATE/TIME: 12/27/2017 12:47 PM REASON FOR EXAM: N Smoking history. No current physical complaints. COMPARISON: None TECHNIQUE: Transabdominal ultrasound evaluation of the aorta was performedfor analysis of grayscale and color Doppler imaging characteristics. FINDINGS:. The IVC is patent. The proximal aorta measures 23 x 20 mm.The mid aorta measures 22 x 23 mm. The distal aorta measures 14 x 19 mm.There is flow at all levels of the aorta with very minimal atheroscleroticdisease at each level. The proximal right iliac artery measures 9 x 12 mm.The proximal left iliac artery measures 12 x 11 mm. Nonlaminar turbulentblood flow is seen in the distal aorta proximal to the bifurcation withfocal areas of prominent eccentric atherosclerotic disease. IMPRESSION: 1. No evidence of abdominal aortic aneurysm 2. Atherosclerotic disease throughout the aorta most prominent distally Interpreted By: Efren Dueñas MD, 12/27/2017 2:23 PM Order Doctor: GENNA GUERRERO us Genna Guerrero MD ULTRASOUND Final Result documented in this encounter Visit Diagnoses Diagnosis Smoking greater than 30 pack years Tobacco use disorder documented in this encounter Care Teams Superintendent Mechanical Relationship Specialty Start Date End Date Genna Guerrero MD PCP - General FAMILY PRACTICE 11/01/17 02/21/21 documented as of this encounter
--- OUTSIDE RECORDS SUMMARY | 2024-04-12 08:52 | XMS_ITS | Encounter Summary ---
Author Organization [facility] Address [address] [place] [address]. [place] [address] Care Team Providers Care Service Member Name Role Phone Fabiano Mosley MD Primary Care Provider [phone] Encounter Details Date Type Department Care Team (Latest Contact Info) Description 10/29/2017 Abstract [facility] Medical Group Social History Tobacco Use Types [...] on filedocumented in this encounter Care Teams Service Member Relationship Specialty Start Date End Date Fabiano Mosley MD PCP - General FAMILY PRACTICE 11/01/17 02/21/21 documented as of this encounter
--- OUTSIDE RECORDS SUMMARY | 2024-04-12 08:52 | XMS_ITS | Encounter Summary ---
Author Organization [facility] Address [address] [place] [address]. [place], [place] [address] [place] [address] Care Team Providers Care Medical Receptionist Medical Assistant Name Role Phone Fabiano Mosley MD Primary Care Provider [phone] Encounter Details Date Type Department Care Team (Latest Contact Info) Description 11/19/2017 5:35 PM CDT - 11/19/2017 11:59 PM CDT Hospital Encounter [facility] [address] [facility] [place] [address] Khadijah Vogt APNP [address] [place] [address] Discharge Disposition: Home or Self Care (Routine Discharge) Social History Tobacco Use Types Packs/Day Years Used Date Smoking Tobacco: Never Assessed Sex and Gender Information Value Date Recorded Sex Assigned at Not on file Legal Sex Male 7:19 PM CDT Gender Identity Not on file Sexual Orientation Not on file documented as of this encounter Medications at Time of Discharge tadalafil 5 MG tablet Take 1 tablet by mouth daily. 10/11/2017 06/10/2018 documented as of this encounter Plan of Treatment Not on file documented as of this encounter Procedures Procedure Name Priority Date/Time Associated Diagnosis Comments URINE BACTERIA CULTURE Routine 11/19/2017 3:16 PM CDT Enlarged prostate without lower urinary tract symptoms (luts) documented in this encounter Results * CULTURE URINE (11/19/2017 3:16 PM CDT) SPEC DESCRIPTION URINE CLEAN CATCH 11/19/2017 5:37 PM CDT [facility] SPECIAL REQUESTS NO SPECIAL REQUEST 11/19/2017 5:37 PM CDT [facility] CULTURE RESULT POLYMICROBIAL GROWTH CONSISTENT WITH NORMAL GENITAL PATY. ?? SUSCEPTIBILITIES NOT ROUTINELY PERFORMED. 11/21/2017 8:26 AM CDT [facility] URINE SPECIMEN OBTAINED BY CLEAN CATCH PROCEDURE / Unknown 11/19/2017 3:16 PM CDT 11/19/2017 5:52 PM CDT us Khadijah ARRIETA MICROBIOLOGY - GENERAL ORDERAB LES Final Result [facility] [address] [place] [address], documented in this encounter Visit Diagnoses Diagnosis Enlarged prostate without lower urinary tract symptoms (luts) Hypertrophy of prostate without urinary obstruction and other lower urinary tract symptoms (LUTS) documented in this encounter Care Teams Medical Receptionist Medical Assistant Relationship Specialty Start Date End Date Fabiano Mosley MD PCP - General FAMILY PRACTICE 11/01/17 02/21/21 documented as of this encounter
--- OUTSIDE RECORDS SUMMARY | 2024-04-12 08:52 | XMS_ITS | Encounter Summary ---
Author Organization [facility] Address [facility]. [place], [place] [address] [place] [address] Care Team Providers Care Ror Engineer Name Role Phone Fabiano Mosley MD Primary Care Provider [phone] Encounter Details Date Type Department Care Team (Latest Contact Info) Description 11/22/2017 Abstract [facility] Medical Group Fabiano Mosley MD [address] [place] [address] Social History Tobacco Use Types Packs/Day Years Used Date Smoking Tobacco: Never Assessed Sex and Gender Information Value Date Recorded Sex Assigned at Not on file Legal Sex Male 7:19 PM CDT Gender Identity Not on file Sexual Orientation Not on file documented as of this encounter Progress Notes * Generic Conversion MD Sundar - 11/22/2017 2:17 PM CDT Message Message: Patient is scheudled for prostate us and biopsy on 12/19/17 at 2:[address] Rubio. Patient was informed to stop all Aspirin medications one week before. Patient took Bactrim DS in the past [address] Rubio wants Levaquin 500 mg for procedure. Patient has declined the Valium offered.He will come in on 12/11/17 for C & S. Plan 1. LevoFLOXacin 500 MG Oral Tablet; TAKE 1 TABLET DAILY UNTIL FINISHED Rx By: Landon Rubio; Dispense: 4 Days ; #:4 Tablet; Refill: 0; For: Elevated PSA; SIRI = N; Verified Transmission to [id number]; Last Updated By: [employer]; 11/22/2017 2:21:45 PM Signatures Electronically signed by : Odette Vasquez MA; Nov 22 2017 2:25PM FITNESS CENTER ATTENDANT (Author) documented in this encounter Plan of Treatment Not on file documented as of this encounter Visit Diagnoses Not on filedocumented in this encounter Care Teams Ror Engineer Relationship Specialty Start Date End Date Fabiano Mosley MD PCP - General FAMILY PRACTICE 11/01/17 02/21/21 documented as of this encounter
--- OUTSIDE RECORDS SUMMARY | 2024-04-12 08:52 | XMS_ITS | Encounter Summary ---
Author Organization [facility] Address [address] [place] [address]. [place], [place] [address] [place] [address] Care Team Providers Care Rotoformer Backtender Name Role Phone Fabiano Mosley MD Primary Care Provider [phone] Encounter Details Date Type Department Care Team (Late st Contact Info) Description 11/19/2017 Orders Only [facility] [place] [address] Khadijah Vogt APNP [address] [place] [address] Social History Tobacco Use Types Packs/Day Years Used Date Smoking Tobacco: Never Assessed Sex and Gender Information Value Date Recorded Sex Assigned at Not on file Legal Sex Male 7:19 PM CDT Gender Identity Not on file Sexual Orientation Not on file documented as of this encounter Plan of Treatment Not on file documented as of this encounter Results * CULTURE URINE (11/19/2017 3:16 PM CDT) SPEC DESCRIPTION URINE CLEAN CATCH 11/19/2017 5:37 PM CDT [facility] SPECIAL REQUESTS NO SPECIAL REQUEST 11/19/2017 5:37 PM T [facility] CULTURE RESULT POLYMICROBIAL GROWTH CONSISTENT WITH NORMAL GENITAL PATY. ?? SUSCEPTIBILITIES NOT ROUTINELY PERFORMED. 11/21/2017 8:26 AM CDT [facility] URINE SPECIMEN OBTAINED BY CLEAN CATCH PROCEDURE / Unknown 11/19/2017 3:16 PM CDT 11/19/2017 5:52 PM CDT us Khadijah ARRIETA MICROBIOLOGY - GENERAL ORDERAB LES Final Result [facility] [address] [place] [address], documented in this encounter Visit Diagnoses Diagnosis Enlarged prostate without lower urinary tract symptoms (luts) Hypertrophy of prostate without urinary obstruction and other lower urinary tract symptoms (LUTS) documented in this encounter Care Teams Rotoformer Backtender Relationship Specialty Start Date End Date Fabiano Mosley MD PCP - General FAMILY PRACTICE 11/01/17 02/21/21 documented as of this encounter
--- OUTSIDE RECORDS SUMMARY | 2024-04-12 08:52 | XMS_ITS | Encounter Summary ---
Author Organization [facility] Address [address] [place] [address]. [address] [address] Care Team Providers Care Soil Field Technician Name Role Phone Fabiano Mosley MD Primary Care Provider [phone] Encounter Details Date Type Department Care Team (Latest Contact Info) Description 11/01/2017 Abstract [facility] Medical Group Social History Tobacco Use Types [...] Name Priority Date/Time Associated Diagnosis Comments CT LUNG SCREENING Routine 11/01/2017 2:0 0 PM CDT documented in this encounter Results * CT LUNG SCREENING (11/01/2017 2:00 PM CDT) Anatomical Region Laterality Modality Chest Computed Tomogra phy 11/01/2017 2:00 PM CDT 11/01/2017 2:00 PM CDT Narrative 11/02/2017 5:04 PM CDT EXAM: LUNG SCREENING LOW-DOSE CT THORAX WITHOUT [...] techniques. FINDINGS: Lung Screening Specific (LUNG-RADS): 2 ?Comment ? Segment/Lobe ? Location ?Slice 134 (FT) ? Status ?Baseline ? Type ?Solid ? Equivalent Diameter ? 8.9 mm ? Volume ?365.7 mm? Mass ?367.2 mg ? [place] Long/Short ? 12.4 / 4.6 mm ? Spiculated ?No ? Volume Doubling Time ?- ? Mass Doubling Time ?- ? Lung-RADS Category ?4A ? 1 ?Comment ? Segment/Lobe ?Right Upper Lobe ? Location ?Slice 137 ([facility]) ? Status ?Baseline ? Type ?Solid ? Equivalent Diameter ? 6.7 mm ? Volume ?156.2 mm? Mass ?121.9 mg ? [place] Long/Short ? 11.2 / 4.7 mm ? Spiculated ?No ? Volume Doubling Time ?- ? Mass Doubling Time ?- ? Lung-RADS Category ?3 ? Potentially Significant Incidentals (LUNG-RADS category S): None. [...] around 02/01/2018). Thank you for choosing the [facility]'s Lung Screening Program. Procedure Note Moy Kwok MD - 02/23/2018 EXAM: LUNG SCREENING LOW-DOSE CT THORAX WITHOUT [...] As ReasonablyAchievable), or Image Gently techniques. FINDINGS: Lung Screening Specific (LUNG-RADS): 2 Comment Segment/Lobe Location Slice 134 ([facility]) Status Baseline Type Solid Equivalent Diameter 8.9 mm Volume 365.7 mm? Mass 367.2 mg [place] Long/Short 12.4 / 4.6 mm Spiculated No Volume Doubling Time - Mass Doubling Time - Lung-RADS Category 4A 1 Comment Segment/Lobe Right Upper Lobe Location Slice 137 ([facility]) Status Baseline Type Solid Equivalent Diameter 6.7 mm Volume 156.2 mm? Mass 121.9 mg [place] Long/Short 11.2 / 4.7 mm Spiculated No [...] 2. LUNG-RADS category S: Negative, no new/unknown potentiallysignificant incidental findings requiring urgent additional evaluation. 3. Other incidental findings as above. RECOMMENDATIONS: Follow-up LDCT Chest in 3 months (on or around 02/01/2018). Thank you for choosing the [facility]'s Lung Screening Program. us Fabiano Mosley MD CT Final Result documented in this encounter Visit Diagnoses Not on filedocumented in this encounter Care Teams Soil Field Technician Relationship Specialty Start Date End Date Fabiano Mosley MD PCP - General FAMILY PRACTICE 11/01/17 02/21/21 documented as of this encounter
--- OUTSIDE RECORDS SUMMARY | 2024-04-12 08:52 | XMS_ITS | Encounter Summary ---
Author Organization [facility] Address [address] [place] [address]. [place], [place] [address] [place] [address] Care Team Providers Care Dry Mixer Name Role Phone Fabiano Mosley MD Primary Care Provider [phone] Reason for Referral * Imaging (Routine) - Closed Specialty Diagnoses / Procedures Referred By Lissa hermosillo Referred To Contact Diagnoses Cigarette smoker Procedures CT LUNG SCREENING Fabiano Mosley MD Phone: tel: fax: [place] [address] Phone: tel: Referral ID Status Reason Start Date Expiration Date Visits Re quested Visits Authorized [id number] Closed 10/22/2017 11/21/2018 1 1 Reason for Visit * Imaging (Routine) - Closed Specialty Diagnoses / Procedures Referred By Lissa hermosillo Referred To Contact Diagnoses Cigarette smoker Procedures CT LUNG SCREENING Fabiano Mosley MD Phone: tel: fax: [place] [address] Phone: tel: Referral ID Status Reason Start Date Expiration Date Visits Re quested Visits Authorized [id number] Closed 10/22/2017 11/21/2018 1 1 Encounter Details Date Type Department Care Team (Latest Contact Info) Description 11/01/2017 2:00 PM CDT - 11/01/2017 11:59 PM CDT Hospital Encounter [facility] [address] [facility] [address] Non-Staff, Provider Discharge Disposition: Home or Self Care (Routine [...] Diagnosis Comments CT LUNG SCREENING Routine 11/01/2017 2:2 6 PM CDT Cigarette smoker documented in this encounter Results * CT LUNG SCREENING (11/01/2017 2:26 PM CDT) Anatomical Region Laterality Modality Chest Computed Tomogra phy 11/02/2017 4:54 PM CDT Impressions 11/02/2017 5:02 PM CDT IMPRESSION: 1. LUNG-RADS category 4a: Suspicious-findings for which additional diagnostic testing and/or tissue sampling is recommended. 2. LUNG-RADS category S: Negative, no new/unknown potentially significant incidental findings requiring urgent additional evaluation. 3. Other incidental findings as above. RECOMMENDATIONS: Follow-up LDCT Chest in 3 months (on or around 02/01/2018). Thank you for choosing the [facility]'s Lung Screening Program. Narrative 11/02/2017 5:02 PM CDT EXAM: LUNG SCREENING LOW-DOSE CT [...] Volume ?365.7 mm? Mass ?367.2 mg ? [place] Long/Short ? 12.4 / 4.6 mm ? Spiculated ?No ? Volume Doubling Time ?- ? Mass Doubling Time ?- ? Lung-RADS Category ?4A ? 1 ?Comment ? Segment/Lobe ?Right Upper Lobe ? Location ?Slice 137 ([facility]) ? Status ?Baseline ? Type ?Solid ? Equivalent Diameter ? 6.7 mm ? Volume ?156.2 mm? Mass ?121.9 mg ? [place] Long/Short ? 11.2 / 4.7 mm ? Spiculated ?No ? Volume Doubling Time ?- ? Mass Doubling Time ?- ? Lung-RADS Category ?3 ? Potentially Significant Incidentals (LUNG-RADS category S): None. Pulmonary Incidentals: Subapical pleural fibrosis bilaterally. Mild subapical paraseptal emphysema. No pneumothorax. Airways within normal limits. Other Incidentals: Scattered atherosclerosis. Procedure Note Justus Mejia MD - 11/02/2017 EXAM: LUNG SCREENING LOW-DOSE CT THORAX WITHOUT [...] mm Volume 365.7 mm? Mass 367.2 mg [place] Long/Short 12.4 / 4.6 mm Spiculated No Volume Doubling Time - Mass Doubling Time - Lung-RADS Category 4A 1 Comment Segment/Lobe Right Upper Lobe Location Slice 137 ([facility]) Status Baseline Type Solid Equivalent Diameter 6.7 mm Volume 156.2 mm? Mass 121.9 mg [place] Long/Short 11.2 / 4.7 mm Spiculated No [...] around 02/01/2018). Thank you for choosing the [facility]'s Lung Screening Program. us Fabiano Mosley MD CT Final Result documented in this encounter Visit Diagnoses Diagnosis Cigarette smoker Tobacco use disorder documented in this encounter Care Teams Dry Mixer Relationship Specialty Start Date End Date Fabiano Mosley MD PCP - General FAMILY PRACTICE 11/01/17 02/21/21 documented as of this encounter
--- OUTSIDE RECORDS SUMMARY | 2024-04-12 08:52 | XMS_ITS | Encounter Summary ---
Author Organization [facility] Address [facility]. [place], [place] [address] [place] [address] Care Team Providers Care Hat Forming Machine Feeder Name Role Phone Fabiano Mosley MD Primary Care Provider [phone] Encounter Details Date Type Department Care Team (Late st Contact Info) Description 11/15/2017 Abstract [facility] Medical Group Multispecialty Care - [facility] [address] [facility] [address] [place] [address] Khadijah Vogt APNP [address] [place] [address] Social History Tobacco Use Types Packs/Day Years [...] on filedocumented in this encounter Care Teams Hat Forming Machine Feeder Relationship Specialty Start Date End Date Fabiano Mosley MD PCP - General FAMILY PRACTICE 11/01/17 02/21/21 documented as of this encounter
--- OUTSIDE RECORDS SUMMARY | 2024-04-12 08:52 | XMS_ITS | Encounter Summary ---
Author Organization [facility] Address [address] [place] [address]. [place], [place] [address] [place] [address] Care Team Providers Care Counter Top Assembler Name Role Phone Fabiano Mosley MD Primary Care Provider [phone] Encounter Details Date Type Department Care Team (Late st Contact Info) Description 11/02/2017 7:20 PM CDT - 11/02/2017 11:59 PM CDT Hospital Encounter [facility] [place] [address] Cruz Wood, DO 3 [facility] [address] [place] [id number] Discharge Disposition: Home or Self Care (Routine [...] Associated Diagnosis Comments PROSTATE SPECIFIC ANTIGEN,TOTAL Routine 11/02/2017 1:55 PM CDT Elevated prostate specific antigen (PSA) documented in this encounter Results * (ABNORMAL) PROSTATE SPECIFIC ANTIGEN,TOTAL (11/02/2017 1:55 PM CDT) PSA 14.30(H) <4.00 NG/ML 11/02/2017 8:29 PM CDT [facility] Comment: Test was performed using the Siemens method. ??Results obtained with other assay methods or kits cannot be used interchangeably with results obtained by the Siemens method. 11/02/2017 1:55 PM CDT us Fabiano Mosley MD LABORATORY Final Result [facility] [address] [place] [address], documented in this encounter Visit Diagnoses Diagnosis Elevated prostate specific antigen (PSA) documented in this encounter Care Teams Counter Top Assembler Relationship Specialty Start Date End Date Fabiano Mosley MD PCP - General FAMILY PRACTICE 11/01/17 02/21/21 documented as of this encounter
--- OUTSIDE RECORDS SUMMARY | 2024-04-12 08:52 | XMS_ITS | Encounter Summary ---
Author Organization [facility] Address [address] [place] [address]. [place], [place] [id number] [place] [address] Care Team Providers Care Cost Specialist Name Role Phone Fabiano Mosley MD Primary Care Provider [phone] Encounter Details Date Type Department Care Team (Late st Contact Info) Description 11/02/2017 Orders Only [facility] [place] [address] Fabiano Mosley MD [address] [place] [address] Social History Tobacco Use Types [...] 14.30(H) <4.00 NG/ML 11/02/2017 8:29 PM CDT [facility] Comment: Test was performed using the Siemens method. ??Results obtained with other assay methods or kits cannot be used interchangeably with results obtained by the Siemens method. 11/02/2017 1:55 PM CDT us Fabiano Mosley MD LABORATORY Final Result [facility] [address] [place] [address], documented in this encounter Visit Diagnoses Diagnosis Elevated prostate specific antigen (PSA) documented in this encounter Care Teams Cost Specialist Relationship Specialty Start Date End Date Fabiano Mosley MD PCP - General FAMILY PRACTICE 11/01/17 02/21/21 documented as of this encounter
--- OUTSIDE RECORDS SUMMARY | 2024-04-12 08:52 | XMS_ITS | Encounter Summary ---
Author Organization [facility] Address [facility] [place], [place] [address] [place] [address] Care Team Providers Care Dye Weigher Name Role Phone Fabiano Mosley MD Primary Care Provider [phone] Encounter Details Date Type Department Care Team (Late st Contact Info) Description 11/19/2017 Abstract [facility] - [address], [address] [place] [id number] Khadijah Vogt APNP [address] [place] [address] Social History Tobacco Use Types Packs/Day Years Used Date Smoking Tobacco: Never Assessed Sex and Gender Information Value Date Recorded Sex Assigned at Not on file Legal Sex Male 7:19 PM CDT Gender Identity Not on file Sexual Orientation Not on file documented as of this encounter Last Filed Vital Signs Vital Sign Reading Time Taken Comments Blood Pressure 124/76 11/19/2017 1:18 PM CDT Pulse 83 11/19/2017 1:18 PM CDT Temperature - - Respiratory Rate - - Oxygen Saturation - - Inhaled Oxygen Concentration - - Weight 75 kg (165 lb 6.4 oz) 11/19/2017 1:18 PM CDT Height 185.4 cm (6' 1 ) 11/19/2017 1:18 PM CDT Body Mass Index 21.82 11/19/2017 1:18 PM CDT documented in this encounter Progress Notes * MEENAKSHI Sifuentes - 11/19/2017 1:00 PM CDT Reason For Visit Consultation 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 Only other PSA was 2 weeks prior to that at 13. Negative urinalysis at that time. Reports experiencing hesitancy and straining to initiate a stream for the last year along with nocturia. He tells me he was initiated on Cialis daily for this approximately 1 month ago. The only change he hasnoted is a decrease in his nighttime voids. Currently he tells me he voids every 1-2 hours throughout the day. Denies urgency or urge incontinence. He wakes 2 times at night to void since initiating Cialis compared to 4 times. Continues to have hesitancy and straining to initiate a stream intermittently. reports a weak stream. Does not always feel completely empty after each void. Denies any gross hematuria. Has also been experiencing occasional dysuria throughout his stream. Denies any fevers,chills, nausea, and/or vomiting. No history of UTIs or kidney stones. No family history of genitourinary malignancies. Current every day smoker. Review of Systems Constitutional: no fever, no chills and no fatigue. Respiratory: no shortness of breath. Gastrointestinal: no abdominal pain, no nausea and no vomiting. Genitourinary: dysuria, urinary frequency, urinary hesitancy, nocturia, stranguria and weak stream,but no urinary urgency, no urinary incontinence, no hematuria, no pelvic pain and no testicular pain. Active Problems 1. Advance directive discussed with patient (V65.49) (Z71.89) 2. 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 BPH (benign prostatic hyperplasia) (600.00) (N40.0) 4. Dysuria (788.1) (R30.0) 5. Elevated PSA (790.93) (R97.20) 6. Encounter for prostate cancer screening (V76.44) (Z12.5) 7. Erectile dysfunction (607.84) (N52.9) 8. Fatigue (780.79) (R53.83) 9. Fracture of wrist (814.00) (S62.109A) 10. Hearing loss, bilateral (389.9) (H91.93) 11. Hemorrhoids (455.6) (K64.9) 12. Low serum vitamin D (790.6) (R79.89) 13. Lung nodule (793.11) (R91.1) 14. Risk for sexually transmitted disease (V69.2) (Z72.51) 15. Smoking greater than 30 pack years (305.1) (F17.210) 16. Vision changes (368.9) (H53.9) 17. Vitamin D deficiency (268.9) (E55.9) Past Medical History 1. History of hearing loss (V12.49) (Z86.69) 2. History of Numbness of face (782.0) (R20.0) Family History 1. Family history of liver cancer (V16.0) (Z80.0) 2. Family history of arteriosclerotic cardiovascular disease (V17.49) (Z82.49) 3. No pertinent family history 4. Family history of lung cancer (V16.1) (Z80.1) 5. Family history of arteriosclerotic cardiovascular disease (V17.49) (Z82.49) Social History ?? Current every day smoker (305.1) (F17.200) ?? No alcohol use ?? No caffeine use ?? Smoking greater than 30 pack years (305.1) (F17.210) Current Meds 1. Cialis 5 MG Oral Tablet; Take 1 tablet daily; Therapy: 11Oct2017 to (Evaluate:16Jan2018) Requested for: 82Tfj3812; Last Rx:[id number] Ordered Rx By: Fabiano Mosley; Dispense: 30 Days ; #:30 Tablet; Refill: 2; For: BPH (benign prostatic hyperplasia); SIRI = N; Verified Transmission to [facility]; Last Updated By: Solomon Suazo; 10/18/2017 8:16:03 AM 2. Vitamin D3 5000 UNIT Oral Capsule; TAKE DIRECTED; Therapy: 78Pvn7767 to (Last Rx:[id number]) Ordered Rx By: Fabiano Mosley; Dispense: 0 Days ; #:90 Capsule; Refill: 0; For: Vitamin D deficiency; SIRI = N; Record Allergies 1. No Known Drug Allergies Recorded By: Heaven Juarez; 10/11/2017 10:45:27 AM 2. Mold Recorded By: Heaven Juarez; 10/11/2017 10:21:01 AM Vitals Recorded: [id number] 01:18PM Temperature 98.7 F Heart Rate 83 Systolic 124 Diastolic 76 Not able to obtain height Patient stated height Height 6 ft 1 in Weight 165 lb 6.4 oz BMI Calculated 21.82 BSA Calculated 1.98 Physical Exam Constitutional General appearance: No acute distress, well appearing and well nourished. Genitourinary Anus and perineum: Normal. Scrotum contents: Normal size, no masses. Epididymis: Normal, no masses. Testes: Normal testes, no masses. Urethral meatus: Normal, no lesions. Penis: Normal, no lesions. Prostate felt to be approximately 30-35 cc in volume with an overall firmness but benign. No definite nodule felt.. Digital rectal exam of seminal vesicles: Normal size, no masses. Anus, perineum, and rectum: Normal. Psychiatric Orientation to person, place and time: Normal. Mood and affect: Normal. Procedure PVR with bladder scan 94cc Assessment Elevated PSA Obstructive voiding symptoms Nocturia Pyuria Plan Urine will be sent for culture. He was found to be emptying well but due to his complaints we will initiate Flomax daily. Discussedpotential side effects. He voices understanding of these. We discussed potential causes for an elevated PSA level including but not limited to; Infection, BPH, and/or prostate cancer. He is aware the only way to know for sure if he were to have prostate cancer or not would be with a prostate biopsy. We discussed what this involves. He has elected to go forward with biopsy. Signatures Electronically signed by : Breanne Spicer MA; Nov 19 2017 1:20PM ELIGIBILITY SUPERVISOR (Co-author) Electronically signed by : Khadijah Vogt APN; Nov 19 2017 2:35PM ELIGIBILITY SUPERVISOR (Author) documented in this encounter Plan of Treatment Not on file documented as of this encounter Procedures Procedure Name Priority Date/Time Associated Diagnosis Comments URINE BACTERIA CULTURE Routine 11/19/2017 3:16 PM CDT documented in this encounter Results * CULTURE URINE (11/19/2017 3:16 PM CDT) CULTURE URINE SPECIMEN DESCRIPTION ? - URINE CLEAN CATCH SPECIAL REQUESTS ? - NO SPECIAL REQUEST CULTURE ?- POLYMICROBIAL GROWTH CONSISTENT WITH NORMAL GENITAL PATY. ??SUSCEPTIBILITIE S NOT CULTURE ?- ??ROUTINELY PERFORMED. REPORT STATUS ?- FINAL 11/21/2017 [facility] CONVERSION 11/19/2017 3:16 PM CDT 11/19/2017 3:16 PM CDT Narrative [facility] CON[facility] - 11/21/2017 8:26 AM CDT Result Communication: No patient communication needed at this time Khadijah ARRIETA MICROBIOLOGY - GENERAL ORDERAB LES Final Result [facility] CON[facility] documented in this encounter Visit Diagnoses Not on filedocumented in this encounter Care Teams Dye Weigher Relationship Specialty Start Date End Date Fabiano Mosley MD PCP - General FAMILY PRACTICE 11/01/17 02/21/21 documented as of this encounter
--- OUTSIDE RECORDS SUMMARY | 2024-04-12 08:52 | XMS_ITS | Encounter Summary ---
Author Organization [facility] Address [address] [place] [address]. [place] [id number] Care Team Providers Care Biological Lab Technician Name Role Phone Fabiano Mosley MD Primary Care Provider [phone] Encounter Details Date Type Department Care Team (Latest Contact Info) Description 11/05/2017 Abstract [facility] Social History Tobacco Use Types Packs/Day Years Used Date Smoking Tobacco: Never Assessed Sex and Gender Information Value Date Recorded Sex Assigned at Not on file Legal Sex Male 7:19 PM CDT Gender Identity Not on file Sexual Orientation Not on file documented as of this encounter Progress Notes * Fabiano Mosley MD - 11/05/2017 12:34 PM CDT Active Problems 1. Advance directive discussed with [...] Low serum vitamin D (790.6) (R79.89) 13. Risk for sexually transmitted disease (V69.2) (Z72.51) 14. Smoking greater than 30 pack years (305.1) (F17.210) 15. Vision changes (368.9) (H53.9) 16. Vitamin D deficiency (268.9) (E55.9) Current Meds 1. Aspirin 325 MG Oral Tablet; TAKE 1 TABLET DAILY; Therapy: 11Oct2017 to Recorded 2. Cialis 5 MG Oral Tablet; Take 1 tablet daily; Therapy: 11Oct2017 to (Evaluate:16Jan2018) Requested for: [id number]; Last Rx:[id number] Ordered 3. Proctosol HC 2.5 % Rectal Cream; INSERT 1 APPLICATORFUL RECTALLY 3 TIMES DAILY; Therapy: 24Kkc0665 to (Last Rx:[id number]) Requested for: [id number] Ordered 4. Sulfamethoxazole-Trimethoprim 800-160 MG Oral Tablet (Bactrim DS); TAKE 1 TABLET TWICE DAILY UNTIL FINISHED; Therapy: 34Muk3598 to (Evaluate:76Mit2999) Requested for: 26Jdj7789; Last Rx:[id number] Ordered 5. Vitamin D3 5000 UNIT Oral Capsule; TAKE DIRECTED; Therapy: 42Ajb7027 to (Last Rx:[id number]) Ordered Allergies 1. No Known Drug Allergies 2. Mold Plan 1. Urology Referral Outpatient elevated psa of 14 on two occasions. rule out prostate cancer Status: Need Information - Financial Authorization Requested for: [id number] Ordered; For: Elevated PSA; Ordered By: Fabiano Mosley Performed: Due: [id number] PSA -Elevated at 14 on 2 separate occasions. Will consult urology for further investigation. Suspicious lung nodule -Will get repeat imaging in 3 months. Chronic Hemorrhoids -Will send to surgery for hemorrhoidectomy Signatures Electronically signed by : Fabiano Mosley M.D.; Nov 05 2017 12:37PM RN MATERNAL CHILD (Author) Electronically signed by : Fabiano Mosley M.D.; Nov 05 2017 12:53PM RN MATERNAL CHILD (Author) Electronically signed by : Fabiano Mosley M.D.; Nov 06 2017 8:30AM RN MATERNAL CHILD (Author) documented in this encounter Plan of Treatment Not on file documented as of this encounter Visit Diagnoses Not on filedocumented in this encounter Care Teams Biological Lab Technician Relationship Specialty Start Date End Date Fabiano Mosley MD PCP - General FAMILY PRACTICE 11/01/17 02/21/21 documented as of this encounter
--- OUTSIDE RECORDS SUMMARY | 2024-04-12 08:53 | XMS_ITS | Encounter Summary ---
Author Organization [facility] Address [address] [place] [address]. [place], [place] [address] [place] [address] Care Team Providers Care Bus Mechanic Name Role Phone Unavailable Primary Care Provider Unavailabl e Encounter Details Date Type Department Care Team (Late st Contact Info) Description 10/18/2017 Orders Only [facility] [place] [address] Fabiano Mosley MD [phone] [phone] Social History Tobacco Use Types Packs/Day Years Used Date Smoking Tobacco: Never Assessed Sex and Gender Information Value Date Recorded Sex Assigned at Not on file Legal Sex Male 7:19 PM CDT Gender Identity Not on file Sexual Orientation Not on file documented as of this encounter Plan of Treatment Not on file documented as of this encounter Results * HIV 1 ANTIGEN(S), WITH HIV-1 AND HIV-2 ANTIBODIES (10/18/2017 6:15 PM CDT) HIV 1/2 AB+ HIV1 P24 AG NON-REACTI VE NON-REACTI VE 10/18/2017 8:[address] [facility] 10/18/2017 6:15 PM CDT us Fabiano Mosley MD LABORATORY Final Result [facility] [address] [place] [address], * (ABNORMAL) VITAMIN D, 25 OH (10/18/2017 1:14 PM CDT) [facility] VITAMIN D 25 HYDROXY S/P/B 28(L) 30 - 100 NG/ML 10/19/2017 7:[address] [facility] Comment: ? INTERPRETATION ? DEFICIENT ??<20 ? INSUFFICIENT 20-29 ?SUFFICIENT 30-100 10/18/2017 1:14 PM CDT Fabiano Mosley MD LABORATORY Final Result Performing Organization Address [facility] Co de Phone Number [facility] [address] [place] [address], * SYPHILIS/RPR/VDRL; QUAL (10/18/2017 1:14 PM CDT) [facility] RPR Nonreactive Nonreactive 10/20/2017 2:54 PM CDT [facility] RPR TITER REPORT 10/20/2017 2:54 PM CDT [facility] Comment: Not indicated. Test Performed by Bibiana Sifuentes, Climateminder [facility], [address] [place] [address] Billy Freeman M.D., Ph.D., Director of Laboratories , [place] [id number] 10/18/2017 1:14 PM CDT us Fabiano Mosley MD LABORATORY Final Result Performing Organization Address [facility] Co de Phone Number [facility] [address] [place] [address], [place] [phone] * HEPATITIS C ANTIBODY (10/18/2017 1:14 PM CDT) HEPATITIS C AB NON-REACTI VE NON-REACTI VE 10/19/2017 8:[address] [facility] 10/18/2017 1:14 PM CDT Fabiano Mosley MD LABORATORY Final Result Performing Organization Address City/[facility] Co de Phone Number [facility] [address] [place] [address], [place] [phone] * (ABNORMAL) PROSTATE SPECIFIC ANTIGEN,SCREENING (10/18/2017 1:14 PM CDT) Pathologist [facility] PSA 13.00(H) <4.00 NG/ML 10/18/2017 8:[address] [facility] Comment: Test was performed using the Siemens method. ??Results obtained with other assay methods or kits cannot be used interchangeably with results obtained by the Siemens method. 10/18/2017 1:14 PM CDT us Fabiano Mosley MD LABORATORY Final Result Performing Organization Address City/[facility] Co de Phone Number [facility] [address] [place] [address], [place] [phone] * (ABNORMAL) URINALYSIS WI REFLEX TO CULTURE (10/18/2017 1:14 PM CDT) Pathologist [facility] SPECIMEN TYPE URINE CLEAN CATCH 10/19/2017 1:[address] [facility] COLOR (U) YELLOW 10/18/2017 10:[address] [facility] TRANSPARENCY CLEAR 10/18/2017 10:[address] [facility] SPECIFIC GRAVITY (U) 1.018 1.001 - 1.030 10/18/2017 10:[address] [facility] U PH 5.0 5.0 - 9.0 10/18/2017 10:[address] [facility] LEUKOCYTES (U) NEGATIVE NEGATIVE 10/18/2017 10:[address] [facility] NITRITES NEGATIVE NEGATIVE 10/18/2017 10:[address] [facility] PROTEIN (U) NEGATIVE <30 MG/DL 10/18/2017 10:[address] [facility] URINE GLUCOSE NEGATIVE NEGATIVE MG/DL 10/18/2017 10:[address] [facility] KETONES MG/DL (U) NEGATIVE NEGATIVE MG/DL 10/18/2017 10:[address] [facility] UROBILINOGEN NEGATIVE NEGATIVE MG/DL 10/18/2017 10:[address] [facility] BILIRUBIN (U) NEGATIVE NEGATIVE MG/DL 10/18/2017 10:[address] [facility] BLOOD (U) NEGATIVE NEGATIVE 10/18/2017 10:03 PM [facility] CULTURE & SENSITIVITY INDICATED? CULTURE IS NOT INDICATED 10/18/2017 10:[address] [facility] MUCUS RARE /LPF 10/18/2017 10:[address] [facility] HYALINE CASTS RARE /LPF 10/18/2017 10:[address] [facility] WBC/HPF 1 <6 /HPF 10/18/2017 10:[address] [facility] RBC/HPF <1 <6 /HPF 10/18/2017 10:[address] [facility] BACTERIA (U) RARE(A) NONE /HPF 10/18/2017 10:[address] [facility] 10/18/2017 1:14 PM CDT us Fabiano Mosley MD URINE ORDERABLES Final Result [facility] [address] [place] [address], * (ABNORMAL) LIPID PANEL (10/18/2017 1:14 PM CDT) CHOLESTEROL 186 <200 MG/DL 10/18/2017 8:[address] [facility] TRIGLYCERIDES 49 <150 MG/DL 10/18/2017 8:[address] [facility] HDL 52 >40.0 MG/DL 10/18/2017 8:[address] [facility] LDL (CALCULATED) 124.2(H) <100 MG/DL 10/18/2017 8:[address] [facility] NON HDL CHOLESTEROL 134(H) <130 MG/DL 10/18/2017 8:[address] [facility] CHOL/HDL RATIO 3.6 0.0 - 4.5 10/18/2017 8:[address] [facility] VLDL CALCULATION 10 5 - 55 MG/DL 10/18/2017 8:[address] [facility] LIPID INTERPRETATION 10/18/2017 8:[address] [facility] Comment: [facility] CONCENSUS REPORT RECOMMENDATIONS: ?ADULT ?CHILD ??LOW RISK: ?CHOLESTEROL ? <200 ? <170 ?TRIGLYCERIDE ?<150 ?--- ?HDL ? >=60 ?--- ?LDL ? <100 ? <110 ??BORDERLINE: ?CHOLESTEROL ? 200-239 ?? 170-199 ?TRIGLYCERIDE ?150-199 ? --- ?HDL ?40-59 ?--- ?LDL ? 100-159 ?? 110-129 ??HIGH RISK: ?CHOLESTEROL ? >=240 ?>=200 ?TRIGLYCERIDE ?>=200 ? --- ?HDL ?<40 ?--- ?LDL ? >=160 ?>=130 10/18/2017 1:14 PM CDT us Fabiano Mosley MD LABORATORY Final Result [facility] [address] [place] [address], * (ABNORMAL) CBC W/DIFF AUTOMATED (10/18/2017 1:14 PM CDT) WBC 6.4 4.5 - 11.0 x10'3/uL 10/18/2017 7:[address] [facility] RBC 4.63(L) 4.70 - 6.10 x10'6/uL 10/18/2017 7:[address] [facility] HGB 14.3 14.0 - 18.0 G/DL 10/18/2017 7:[address] [facility] HCT 44.4 43.0 - 54.0 % 10/18/2017 7:[address] [facility] MCV 95.9(H) 80.0 - 94.0 FL 10/18/2017 7:[address] [facility] MCH 30.9 27.0 - 31.0 PG 10/18/2017 7:[address] [facility] MCHC 32.2 32.0 - 36.0 G/DL 10/18/2017 7:[address] [facility] RDW 13.5 11.5 - 14.5 % 10/18/2017 7:[address] [facility] PLT 214 130 - 400 x10'3/uL 10/18/2017 7:[address] [facility] MPV 11.3 9.3 - 12.2 FL 10/18/2017 7:[address] [facility] DIFFERENTIAL TYPE AUTOMATED DIFFERENTIAL 10/18/2017 7:[address] [facility] NEUTROPHILS % 61.3 % 10/18/2017 7:[address] [facility] LYMPHOCYTES % 24.4 % 10/18/2017 7:[address] [facility] MONOCYTES % 8.1 % 10/18/2017 7:[address] [facility] EOSINOPHILS 5.0 % 10/18/2017 7:[address] [facility] BASOPHILS 0.6 % 10/18/2017 7:[address] [facility] IMMATURE GRANS % 0.6(H) 0 % 10/19/19 18 7:[address] [facility] ABS. NEUTROPHILS TOTAL 3.92 1.80 - 7.70 x10'3/uL 10/18/2017 7:[address] [facility] ABS. LYMPHOCYTES 1.56 1.00 - 4.80 x10'3/uL 10/18/2017 7:[address] [facility] ABS. MONOCYTES 0.52 0.30 - 0.82 x10'3/uL 10/18/2017 7:[address] [facility] ABS. EOSINOPHILS 0.32 0.04 - 0.54 x10'3/uL 10/18/2017 7:[address] [facility] ABS. BASOPHILS 0.04 0.01 - 0.08 x10'3/uL 10/18/2017 7:[address] [facility] ABS. IMMATURE GRANULOCYTES 0.04(H) 0.00 - 0.03 x10'3/uL 10/18/2017 7:[address] [facility] 10/18/2017 1:14 PM CDT us Fabiano Mosley MD LABORATORY Final Result [facility] [address] [place] [address], * TESTOSTERONE, FREE & TOTAL (10/18/2017 1:14 PM CDT) Pathologist [facility] TESTOSTERONE TOTAL 671 250 - 1,100 ng/dL 10/22/2017 11:49 AM CDT [facility] Comment: Men with clinically significant hypogonadal symptoms and testosterone values repeatedly in the range of the 200-300 ng/dL or less, may benefit from testosterone treatment after adequate risk and benefits counseling. For more information on this test, go to http://education.[employer]/faq/ TotalTestosteroneLCMSMS This test was developed and its analytical performance characteristics have been determined by [employer] [place], [place]. It has not been cleared or approved by the U.S. Food and Drug Administration. This assay has been validated pursuant to the CLIA regulations and is used for clinical purposes. TESTOSTERONE FREE 67.8 35.0 - 155.0 pg/mL 10/22/2017 11:49 AM CDT [facility] Comment: This test was developed and its analytical performance characteristics have been determined by [employer] [place] [place]. It has not been cleared or approved by the U.S. Food and Drug Administration. This assay has been validated pursuant to the CLIA regulations and is used for clinical purposes. Test Performed by [facility], [facility], [address] [place] [address] Billy Freeman M.D., Ph.D., Director of Laboratories , CLIA [id number] 10/18/2017 1:14 PM CDT us Fabiano Mosley MD LABORATORY Final Result [facility] [address] , [place] [phone] * VITAMIN B-12 (10/18/2017 1:14 PM CDT) VITAMIN B12 S/P/B 783 254 - 1,320 PG/ML 10/18/2017 8:23 PM CDT [facility] 10/18/2017 1:14 PM CDT us Fabiano Mosley MD LABORATORY Final Result [facility] [address] [place] [address], [place] [phone] * TSH W/REFLEX (10/18/2017 1:14 PM CDT) TSH 0.858 0.358 - 3.74 uIU/ML 10/18/2017 8:[address] [facility] Comment: HIGH DOSES OF BIOTIN MAY INTERFERE WITH THIS TEST RESULT. CORRELATION TO CLINICAL HISTORY AND PRESENTATION RECOMMENDED. FREE T4 NOT INDICATED 10/18/2017 1:14 PM CDT us Fabiano Mosley MD LABORATORY Final Result [facility] [address] [place] [address], [place] [phone] documented in this encounter Visit Diagnoses Diagnosis Other fatigue Encounter for general adult medical examination without abnormal findings Unspecified general medical examination Dysuria Enlarged prostate without lower urinary tract symptoms (luts) Hypertrophy of prostate without urinary obstruction and other lower urinary tract symptoms (LUTS) Encounter for screening for malignant neoplasm of prostate Special screening for malignant neoplasm of prostate High risk heterosexual behavior Problems related to high-risk sexual behavior documented in this encounter
--- OUTSIDE RECORDS SUMMARY | 2024-04-12 08:53 | XMS_ITS | Encounter Summary ---
Author Organization [facility] Address [address] [place] [address]. [address] [address] Care Team Providers Care Business Analysis Analyst Name Role Phone Fabiano Mosley MD Primary Care Provider [phone] Encounter Details Date Type Department Care Team (Latest Contact Info) Description 10/18/2017 Abstract [facility] Omi Jensen MD Social History Tobacco Use Types Packs/Day [...] Procedure Name Priority Date/Time Associated Diagnosis Comments N.GONORRHOEAE RNA TMA Routine 10/18/2017 1:14 PM CDT C.TRACHOMATIS RNA TMA Routine 10/18/2017 1:14 PM CDT documented in this encounter Results * N.GONORRHOEAE RNA TMA (10/18/2017 1:14 PM CDT) N.GONORRHOEAE RNA TMA NEGATIVE ?? This test was performed using the APTIMA Combo 2 Chlamydia trachomatis Neisseria gonorrhoeae RNA Amplified Probe Assay which detects the presence of C. trachomatis and N. gonorrhoeae rRNA in clinical specimens. This assay was validated by [facility] and cleared by the FDA for endocervical and male urethral swabs from symptomatic and asymptomatic patients. ?? The APTIMA Combo 2 assay it not intended for the evaluation of suspect sexual abuse or for medico-legal indication. For those patients for whom a false positive result may have adverse psycho-social impact, the CDC recommends retesting. ?? Performed at [facility], [address] [place] [id number] NEG [employer] TO EPIC CONVERSION SOURCE [employer] T O EPIC CONVERSION 10/18/2017 1:14 PM CDT 10/18/2017 1:14 PM CDT Narrative [employer] TO EPIC CONVERSION - 10/23/2017 12:29 PM CDT Result Communication: No patient communication needed at this time us Fabiano Mosley MD MICROBIOLOGY - GENERAL ORDERABL ES Final Result Performing Organization Address [facility]/ZIP Co de Phone Number [employer] TO EPIC CONVERSION * C.TRACHOMATIS RNA TMA (10/18/2017 1:14 PM CDT) SITE: [facility] T O EPIC CONVERSION CHLAMYDIA RNA TMA NEGATIVE ?? This test was performed using the APTIMA Combo 2 Chlamydia trachomatis Neisseria gonorrhoeae RNA Amplified Probe Assay which detects the presence of C. trachomatis and N. gonorrhoeae rRNA in clinical specimens. This assay was validated by [facility] and cleared by the FDA for endocervical and male urethral swabs from symptomatic and asymptomatic patients. ?? The APTIMA Combo 2 assay it not intended for the evaluation of suspect sexual abuse or for medico-legal indication. For those patients for whom a false positive result may have adverse psycho-social impact, the CDC recommends retesting. ?? Performed at [facility], [address] [place] [id number] NEG [employer] TO EPIC CONVERSION 10/18/2017 1:14 PM CDT 10/18/2017 1:14 PM CDT Narrative [employer] TO EPIC CONVERSION - 10/23/2017 12:29 PM CDT Result Communication: No patient communication needed at this time us Fabiano Mosley MD MICROBIOLOGY - GENERAL ORDERABL ES Final Result Performing Organization Address City/[facility]/ZIP Co de Phone Number [employer] TO EPIC CONVERSION documented in this encounter Visit Diagnoses Not on filedocumented in this encounter Care Teams Business Analysis Analyst Relationship Specialty Start Date End Date Fabiano Mosley MD PCP - General FAMILY PRACTICE 11/01/17 02/21/21 documented as of this encounter
--- OUTSIDE RECORDS SUMMARY | 2024-04-12 08:53 | XMS_ITS | Encounter Summary ---
Author Organization [facility] Address [address] [place] [address]. [place], [place] [id number] [place] [address] Care Team Providers Care Collector Of Aquarium Specimens Name Role Phone Unavailable Primary Care Provider Unavailabl e Encounter Details Date Type Department Care Team (Late st Contact Info) Description 11/01/2009 Abstract [facility] [address] [place] [address] , Moy Sanderson MD Social History Tobacco [...]
--- OUTSIDE RECORDS SUMMARY | 2024-04-12 08:53 | XMS_ITS | Encounter Summary ---
Author Organization [facility] Address [facility] [facility]. [place], [place] [address] [place] [address] Care Team Providers Care Dairy Truck Driver Name Role Phone Fabiano Mosley MD Primary Care Provider [phone] Encounter Details Date Type Department Care Team (Late st Contact Info) Description 10/18/[address] [address] Nikunj Yanez MD Social History Tobacco Use Types Packs/Day [...] Procedure Name Priority Date/Time Associated Diagnosis Comments HEMOGLOBIN, GLYCOSYLATED Routine 10/18/2017 1:32 PM CDT documented in this encounter Results * HEMOGLOBIN, GLYCOSYLATED (10/18/2017 1:32 PM CDT) HGB A1C 5.4 4.2 - 6.5 % HbA1C [employer] TO EPIC CONVERSION 10/18/2017 1:32 PM CDT 10/18/2017 1:32 PM CDT Narrative [employer] TO EPIC CONVERSION - 10/18/2017 1:32 PM CDT Result Communication: No patient communication needed at this time us Fabiano Mosley MD LABORATORY Final Result [facility] TO EPIC CONVERSION documented in this encounter Visit Diagnoses Not on filedocumented in this encounter Care Teams Dairy Truck Driver Relationship Specialty Start Date End Date Fabiano Mosley MD PCP - General FAMILY PRACTICE 11/01/17 02/21/21 documented as of this encounter
--- OUTSIDE RECORDS SUMMARY | 2024-04-12 08:53 | XMS_ITS | Encounter Summary ---
Author Organization [facility] Address [address] [place] [address]. [place], [place] [address] [place] [address] Care Team Providers Care Brick Layer Name Role Phone Unavailable Primary Care Provider Unavailabl e Encounter Details Date Type Department Care Team (Latest Contact Info) Description 10/18/2017 6:13 PM CDT - 10/18/2017 6:15 PM CDT Hospital Encounter [facility] [place] [address] Jesús Contreras MD [address] [facility] [address] [address] Discharge Disposition: Home or Self Care (Routine [...] Procedure Name Priority Date/Time Associated Diagnosis Comments HIV 1 ANTIGEN(S), WITH HIV-1 AND HIV-2 ANTIBODIES Routine 10/18/2017 6:15 PM CDT High risk heterosexual behavior URINALYSIS WI REFLEX TO CULTURE Routine 10/18/2017 1:14 PM CDT Dysuria TSH W/REFLEX Routine 10/18/2017 1:14 PM CDT Other fatigue VITAMIN B-12 Routine 10/18/2017 1:14 PM CDT Other fatigue TESTOSTERONE, FREE & TOTAL Routine 10/18/2017 1:14 PM CDT Other fatigue PROSTATE SPECIFIC ANTIGEN,SCREENING Routine 10/18/2017 1:14 PM CDT Enlarged prostate without lower urinary tract symptoms (luts) Encounter for screening for malignant neoplasm of prostate COMPREHENSIVE METABOLIC PANEL Routine 10/18/2017 1:14 PM CDT LIPID PANEL Routine 10/18/2017 1:14 PM CDT Encounter for general adult medical examination without abnormal findings HEPATITIS C ANTIBODY Routine 10/18/2017 1:14 PM CDT Encounter for general adult medical examination without abnormal findings SYPHILIS/RPR/VDRL; QUAL Routine 10/18/2017 1:14 PM CDT High risk heterosexual behavior DIRECT BILIRUBIN Routine 10/18/2017 1:14 PM CDT CBC W/DIFF AUTOMATED Routine 10/18/2017 1:14 PM CDT Encounter for general adult medical examination without abnormal findings VITAMIN D, 25 OH Routine 10/18/2017 1:14 PM CDT Encounter for general adult medical examination without abnormal findings documented in this encounter Results * HIV 1 ANTIGEN(S), WITH HIV-1 AND HIV-2 ANTIBODIES (10/18/2017 6:15 PM CDT) HIV 1/2 AB+ HIV1 P24 AG NON-REACTI VE NON-REACTI VE 10/18/2017 8:43 PM CDT [facility] 10/18/2017 6:15 PM CDT us Fabiano Mosley MD LABORATORY Final Result Performing Organization Address City/[facility]/ZIP Co de Phone Number [facility] [address] [place] [address], [place] [phone] * DIRECT BILIRUBIN (10/18/2017 1:14 PM CDT) BILIRUBIN DIRECT S/P/B 0.2 0.0 - 0.20 MG/DL 10/18/2017 8:23 PM CDT [facility] 10/18/2017 1:14 PM CDT us Fabiano Mosley MD LABORATORY Final Result Performing Organization Address [facility]/ZIP Co de Phone Number [facility] [address] [place] [address], [place] [phone] * (ABNORMAL) COMPREHENSIVE METABOLIC PANEL (10/18/2017 1:14 PM CDT) GLUCOSE 93 70 - 99 MG/DL 10/18/2017 8:23 PM CDT [facility] BUN 20(H) 7 - 18 MG/DL 10/18/2017 8:23 PM CDT [facility] CREATININE S/P/B 1.08 0.7 - 1.3 MG/DL 10/18/2017 8:23 PM CDT [facility] SODIUM S/P/B 139 136 - 145 MMOL/L 10/18/2017 8:23 PM CDT [facility] POTASSIUM S/P/B 4.5 3.5 - 5.1 MMOL/L 10/18/2017 8:23 PM CDT [facility] CHLORIDE S/P/B 106 100 - 108 MMOL/L 10/18/2017 8:23 PM CDT [facility] CO2 27.1 21 - 32 MMOL/L 10/18/2017 8:23 PM T [facility] CALCIUM S/P/B 9.0 8.5 - 10.1 MG/DL 10/18/2017 8:23 PM T [facility] BILIRUBIN TOTAL S/P/B 0.6 0.2 - 1.2 MG/DL 10/18/2017 8:23 PM T [facility] TOTAL PROTEIN S/P/B 6.7 6.4 - 8.2 G/DL 10/18/2017 8:23 PM T [facility] ALBUMIN S/P/B 3.9 3.4 - 5.0 G/DL 10/18/2017 8:23 PM T [facility] AST 24 15 - 37 U/L 10/18/2017 8:23 PM T [facility] ALT 27 16 - 60 U/L 10/18/2017 8:23 PM T [facility] ALKALINE PHOSPHATASE S/P/B 97 50 - 136 U/L 10/18/2017 8:23 PM T [facility] ANION GAP 10.4 8 - 20 MMOL/L 10/18/2017 8:23 PM T [facility] BUN CREATININE RATIO 18.5 6 - 26 10/18/2017 8:23 PM T [facility] A/G RATIO 1.4 1.0 - 2.0 RATIO 10/18/2017 8:23 PM T [facility] EGFR NON-AFR. AMER. 71(L) >90 ML/MIN/1.7 3 M2 10/18/2017 8:23 PM T [facility] EGFR AFR. AMER. 82(L) >90 ML/MIN/1.7 3 M2 10/18/2017 8:23 PM T [facility] Comment: NOTE: eGFR is not calculated for patients <18 years of age. This is an estimated GFR (CKD EPI) and should not be used for calculating drug doses. 10/18/2017 1:14 PM CDT Fabiano Mosley MD LABORATORY Final Result Performing Organization Address [facility] de Phone Number [facility] [address] [place] [address], * (ABNORMAL) VITAMIN D, 25 [place] (10/18/2017 1:14 PM CDT) VITAMIN D 25 HYDROXY S/P/B 28(L) 30 - 100 NG/ML 10/19/2017 7:24 AM CDT [facility] Comment: ? INTERPRETATION ? DEFICIENT ??<20 ? INSUFFICIENT 20-29 ?SUFFICIENT 30-100 10/18/2017 1:14 PM CDT Fabiano Mosley MD LABORATORY Final Result Performing Organization Address [facility] de Phone Number [facility] [address] [place] [address], * SYPHILIS/RPR/VDRL; QUAL (10/18/2017 1:14 PM CDT) RPR Nonreactive Nonreactive 10/20/2017 2:54 PM CDT [facility] R[facility] TITER REPORT 10/20/2017 2:54 PM CDT [facility] Comment: Not indicated. Test Performed by Bibiana Sifuentes, [employer] [facility], [address] [place] [address] Billy Freeman M.D., Ph.D., Director of Laboratories , [facility] [id number] 10/18/2017 1:14 PM CDT us Fabiano Mosley MD LABORATORY Final Result [employer] [facility] [address] [place] [address], [place] [phone] * HEPATITIS C ANTIBODY (10/18/2017 1:14 PM CDT) HEPATITIS C AB NON-REACTI VE NON-REACTI VE 10/19/2017 8:01 AM CDT [facility] 10/18/2017 1:14 PM CDT us Fabiano Mosley MD LABORATORY Final Result Performing Organization Address [facility] Co de Phone Number [facility] [address] [place] [address], [place] [phone] * (ABNORMAL) PROSTATE SPECIFIC ANTIGEN,SCREENING (10/18/2017 1:14 PM CDT) Pathologist [facility] PSA 13.00(H) <4.00 NG/ML 10/18/2017 8:23 PM CDT [facility] Comment: Test was performed using the Siemens method. ??Results obtained with other assay methods or kits cannot be used interchangeably with results obtained by the Siemens method. 10/18/2017 1:14 PM CDT us Fabiano Mosley MD LABORATORY Final Result Performing Organization Address City/[facility]/ZIP Co de Phone Number [facility] [address] [place] [address], [place] [phone] * (ABNORMAL) URINALYSIS WI REFLEX TO CULTURE (10/18/2017 1:14 PM CDT) SPECIMEN TYPE URINE CLEAN CATCH 10/19/2017 1:51 AM T [facility] COLOR (U) YELLOW 10/18/2017 10:03 PM [facility] TRANSPARENCY CLEAR 10/18/2017 10:03 PM [facility] SPECIFIC GRAVITY (U) 1.018 1.001 - 1.030 10/18/2017 10:03 PM [facility] U PH 5.0 5.0 - 9.0 10/18/2017 10:03 PM [facility] LEUKOCYTES (U) NEGATIVE NEGATIVE 10/18/2017 10:03 PM [facility] NITRITES NEGATIVE NEGATIVE 10/18/2017 10:03 PM [facility] PROTEIN (U) NEGATIVE <30 MG/DL 10/18/2017 10:03 PM [facility] URINE GLUCOSE NEGATIVE NEGATIVE MG/DL 10/18/2017 10:03 PM [facility] KETONES MG/DL (U) NEGATIVE NEGATIVE MG/DL 10/18/2017 10:03 PM [facility] UROBILINOGEN NEGATIVE NEGATIVE MG/DL 10/18/2017 10:03 PM [facility] BILIRUBIN (U) NEGATIVE NEGATIVE MG/DL 10/18/2017 10:03 PM T [facility] BLOOD (U) NEGATIVE NEGATIVE 10/18/2017 10:03 PM [facility] CULTURE & SENSITIVITY INDICATED? CULTURE IS NOT INDICATED 10/18/2017 10:03 PM [facility] MUCUS RARE /LPF 10/18/2017 10:03 PM [facility] HYALINE CASTS RARE /LPF 10/18/2017 10:03 PM [facility] WBC/HPF 1 <6 /HPF 10/18/2017 10:03 PM CDT [facility] RBC/HPF <1 <6 /HPF 10/18/2017 10:03 PM CDT [facility] BACTERIA (U) RARE(A) NONE /HPF 10/18/2017 10:03 PM CDT [facility] 10/18/2017 1:14 PM CDT us Fabiano Mosley MD URINE ORDERABLES Final Result [facility] [address] [place] [address], [place] [phone] * (ABNORMAL) LIPID PANEL (10/18/2017 1:14 PM CDT) CHOLESTEROL 186 <200 MG/DL 10/18/2017 8:23 PM CDT [facility] TRIGLYCERIDES 49 <150 MG/DL 10/18/2017 8:23 PM CDT [facility] HDL 52 >40.0 MG/DL 10/18/2017 8:23 PM CDT [facility] LDL (CALCULATED) 124.2(H) <100 MG/DL 10/18/2017 8:23 PM CDT [facility] NON HDL CHOLESTEROL 134(H) <130 MG/DL 10/18/2017 8:23 PM CDT [facility] CHOL/HDL RATIO 3.6 0.0 - 4.5 10/18/2017 8:23 PM CDT [facility] VLDL CALCULATION 10 5 - 55 MG/DL 10/18/2017 8:23 PM CDT [facility] LIPID INTERPRETATION 10/18/2017 8:23 PM CDT [facility] Comment: NIH CONCENSUS REPORT RECOMMENDATIONS: ?ADULT [...] MD LABORATORY Final Result Performing Organization Address [facility]/ZIP Co de Phone Number [facility] [address] [place] [address], [place] [phone] * (ABNORMAL) CBC W/DIFF AUTOMATED (10/18/2017 1:14 PM CDT) [facility] WBC 6.4 4.5 - 11.0 x10'3/uL 10/18/2017 7:41 PM CDT [facility] RBC 4.63(L) 4.70 - 6.10 x10'6/uL 10/18/2017 7:41 PM CDT [facility] HGB 14.3 14.0 - 18.0 G/DL 10/18/2017 7:41 PM CDT [facility] HCT 44.4 43.0 - 54.0 % 10/18/2017 7:41 PM CDT [facility] MCV 95.9(H) 80.0 - 94.0 FL 10/18/2017 7:41 PM CDT [facility] MCH 30.9 27.0 - 31.0 PG 10/18/2017 7:41 PM CDT [facility] MCHC 32.2 32.0 - 36.0 G/DL 10/18/2017 7:41 PM CDT [facility] RDW 13.5 11.5 - 14.5 % 10/18/2017 7:41 PM CDT [facility] PLT 214 130 - 400 x10'3/uL 10/18/2017 7:41 PM CDT [facility] MPV 11.3 9.3 - 12.2 FL 10/18/2017 7:41 PM CDT [facility] DIFFERENTIAL TYPE AUTOMATED DIFFERENTIAL 10/18/2017 7:41 PM CDT [facility] NEUTROPHILS % 61.3 % 10/18/2017 7:41 PM CDT [facility] LYMPHOCYTES % 24.4 % 10/18/2017 7:41 PM CDT [facility] MONOCYTES % 8.1 % 10/18/2017 7:41 PM CDT [facility] EOSINOPHILS 5.0 % 10/18/2017 7:41 PM CDT [facility] BASOPHILS 0.6 % 10/18/2017 7:41 PM CDT [facility] IMMATURE GRANS % 0.6(H) 0 % 10/19/19 18 7:41 PM CDT [facility] ABS. NEUTROPHILS TOTAL 3.92 1.80 - 7.70 x10'3/uL 10/18/2017 7:41 PM CDT [facility] ABS. LYMPHOCYTES 1.56 1.00 - 4.80 x10'3/uL 10/18/2017 7:41 PM CDT [facility] ABS. MONOCYTES 0.52 0.30 - 0.82 x10'3/uL 10/18/2017 7:41 PM CDT [facility] ABS. EOSINOPHILS 0.32 0.04 - 0.54 x10'3/uL 10/18/2017 7:41 PM CDT [facility] ABS. BASOPHILS 0.04 0.01 - 0.08 x10'3/uL 10/18/2017 7:41 PM CDT [facility] ABS. IMMATURE GRANULOCYTES 0.04(H) 0.00 - 0.03 x10'3/uL 10/18/2017 7:41 PM CDT [facility] 10/18/2017 1:14 PM CDT us Fabiano Mosley MD LABORATORY Final Result [facility] [address] [place] [address], [place] [phone] * TESTOSTERONE, FREE & TOTAL (10/18/2017 1:14 PM CDT) Pathologist [facility] TESTOSTERONE TOTAL 671 250 - 1,100 ng/dL 10/22/2017 11:49 AM CDT [employer] [facility] Comment: Men with clinically significant hypogonadal symptoms and testosterone values repeatedly in the range of the 200-300 ng/dL or less, may benefit from testosterone treatment after adequate risk and benefits counseling. For more information on this test, go to http://education.Accelereach/faq/ TotalTestosteroneLCMSMS This test was developed and its analytical performance characteristics have been determined by [place]. It has not been cleared or approved by the U.S. Food and Drug Administration. This assay has been validated pursuant to the CLIA regulations and is used for clinical purposes. TESTOSTERONE FREE 67.8 35.0 - 155.0 pg/mL 10/22/2017 11:49 AM CDT [facility] Comment: This test was developed and its analytical performance characteristics have been determined by [place] [place]. It has not been cleared or approved by the U.S. Food and Drug Administration. This assay has been validated pursuant to the CLIA regulations and is used for clinical purposes. Test Performed by [facility], [place], [address] [place], [place] Billy Freeman M.D., Ph.D., Director of Laboratories , CLIA [id number] 10/18/2017 1:14 PM CDT us Fabiano Mosley MD LABORATORY Final Result [facility] [id number] [place], [place] , * VITAMIN B-12 (10/18/2017 1:14 PM CDT) Pathologist [facility] VITAMIN B12 S/P/B 783 254 - 1,320 PG/ML 10/18/2017 8:23 PM CDT [facility] 10/18/2017 1:14 PM CDT us Fabiano Mosley MD LABORATORY Final Result Performing Organization Address [facility] Co de Phone Number [facility] [address] [place] [address], [place] [phone] * TSH W/REFLEX (10/18/2017 1:14 PM CDT) TSH 0.858 0.358 - 3.74 uIU/ML 10/18/2017 8:23 PM CDT [facility] Comment: HIGH DOSES OF BIOTIN MAY INTERFERE WITH THIS TEST RESULT. CORRELATION TO CLINICAL HISTORY AND PRESENTATION RECOMMENDED. FREE T4 NOT INDICATED 10/18/2017 1:14 PM CDT us Fabiano Mosley MD LABORATORY Final Result Performing Organization Address [facility] Co de Phone Number [facility] [address] [place] [address], [place] [phone] documented in this encounter Visit Diagnoses Diagnosis [...]
--- OUTSIDE RECORDS SUMMARY | 2024-04-12 08:53 | XMS_ITS | Encounter Summary ---
Author Organization [facility] Address [address] [place] [address]. [place] [id number] Care Team Providers Care Alloy Weigher Name Role Phone Fabiano Mosley MD Primary Care Provider [phone] Encounter Details Date Type Department Care Team (Latest Contact Info) Description 10/19/2017 Abstract [facility] Social History Tobacco Use Types Packs/Day Years Used Date Smoking Tobacco: Never Assessed Sex and Gender Information Value Date Recorded Sex Assigned at Not on file Legal Sex Male 7:19 PM CDT Gender Identity Not on file Sexual Orientation Not on file documented as of this encounter Progress Notes * Fabiano Mosley MD - 10/19/2017 3:44 PM CDT Active Problems 1. Advance directive discussed with patient (V65.49) (Z71.89) 2. 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 BPH (benign prostatic hyperplasia) (600.00) (N40.0) 4. Dysuria (788.1) (R30.0) 5. Encounter for prostate cancer screening (V76.44) (Z12.5) 6. Erectile dysfunction (607.84) (N52.9) 7. Fatigue (780.79) (R53.83) 8. Fracture of wrist (814.00) (S62.109A) 9. Hearing loss, bilateral (389.9) (H91.93) 10. Hemorrhoids (455.6) (K64.9) 11. Risk for sexually transmitted disease (V69.2) (Z72.51) 12. Smoking greater than 30 pack years (305.1) (F17.210) 13. Vision changes (368.9) (H53.9) Current Meds 1. Aspirin 325 MG Oral Tablet; TAKE 1 TABLET DAILY; Therapy: 11Oct2017 to Recorded 2. Cialis 5 MG Oral Tablet; Take 1 tablet daily; Therapy: 11Oct2017 to (Evaluate:16Jan2018) Requested for: [id number]; Last Rx:[id number] Ordered Allergies 1. No Known Drug Allergies 2. Mold Plan Will review labs at appointment this week Signatures Electronically signed by : Fabiano Mosley M.D.; Oct 22 2017 9:30AM BUFFING WHEEL INSPECTOR (Author) documented in this encounter Plan of Treatment Not on file documented as of this encounter Visit Diagnoses Not on filedocumented in this encounter Care Teams Alloy Weigher Relationship Specialty Start Date End Date Fabiano Mosley MD PCP - General FAMILY PRACTICE 11/01/17 02/21/21 documented as of this encounter
--- OUTSIDE RECORDS SUMMARY | 2024-04-12 08:53 | XMS_ITS | Encounter Summary ---
Author Organization [facility] Address [address] [place] [address]. [place], [place] [id number] [place] [address] Care Team Providers Care Fur Mixer Name Role Phone Unavailable Primary Care Provider Unavailabl e Encounter Details Date Type Department Care Team (Latest Contact Info) Description 10/18/2017 6:16 PM CDT - 10/18/2017 11:59 PM CDT Hospital Encounter [facility] [place] [address] Omi Jensen MD Discharge Disposition: Home or Self Care (Routine [...] RNA TMA Routine 10/18/2017 1:14 PM CDT Risk for sexually transmitted disease C.TRACHOMATIS RNA TMA Routine 10/18/2017 1:14 PM CDT Risk for sexually transmitted disease documented in this encounter Results * N.GONORRHOEAE RNA TMA (10/18/2017 1:14 PM CDT) SPECIMEN uvoid 10/19/2017 6:57 AM CDT [facility] N.GONORRHOEAE RNA TMA NEGATIVE NEGATIVE 10/23/2017 12:29 PM CDT [facility] Comment: This test was performed using the APTIMA Combo 2 Chlamydia trachomatis & Neisseria gonorrhoeae RNA Amplified Probe Assay which detects the presence of C. trachomatis and N. gonorrhoeae rRNA in clinical specimens. This assay was validated by [facility] and cleared by the FDA for endocervical and male urethral swabs from symptomatic and asymptomatic patients. The APTIMA Combo 2 assay it not intended for the evaluation of suspect sexual abuse or for medico-legal indication. For those patients for whom a false positive result may have adverse psycho-social impact, the CDC recommends retesting. Performed at [facility], [address] [place] [address] OTHER (type in comments) 10/18/2017 1:14 PM CDT Omi Jensen MD MICROBIOLOGY - GENERAL OR DERABLES [place] [address] [facility] [address] [place] [id number], * C.TRACHOMATIS RNA TMA (10/18/2017 1:14 PM CDT) SPEC DESCRIPTION uvoid 10/20/19 18 6:57 AM CDT [facility] CHLAMYDIA RNA TMA NEGATIVE NEGATIVE 10/23/2017 12:29 PM CDT [facility] Comment: This test was performed using the APTIMA Combo 2 Chlamydia trachomatis & Neisseria gonorrhoeae RNA Amplified Probe Assay which detects the presence of C. trachomatis and N. gonorrhoeae rRNA in clinical specimens. This assay was validated by [facility] and cleared by the FDA for endocervical and male urethral swabs from symptomatic and asymptomatic patients. The APTIMA Combo 2 assay it not intended for the evaluation of suspect sexual abuse or for medico-legal indication. For those patients for whom a false positive result may have adverse psycho-social impact, the CDC recommends retesting. Performed at [facility], [address] [place] [address] OTHER (type in comments) 10/18/2017 1:14 PM CDT us Omi Jensen MD MICROBIOLOGY - GENERAL OR DERABLES Final Result [facility] [address] [place] [address] [facility] [address] [place] [address], [place] [phone] documented in this encounter Visit Diagnoses Diagnosis Risk for sexually transmitted disease- Primary Problems related to high-risk sexual behavior documented in this encounter
--- OUTSIDE RECORDS SUMMARY | 2024-04-12 08:53 | XMS_ITS | Encounter Summary ---
Author Organization [facility] Address [address] [place] [address]. [place], [place] [address] [place] [address] Care Team Providers Care Statement Processor Name Role Phone Unavailable Primary Care Provider Unavailabl e Encounter Details Date Type Department Care Team (Late st Contact Info) Description 06/17/[address] [facility] [address] [place] [address] Kavon Bhatti, DO [facility] [address] [place] [address] Social History Tobacco Use Types Packs/Day Years [...]
--- OUTSIDE RECORDS SUMMARY | 2024-04-12 08:53 | XMS_ITS | Encounter Summary ---
Author Organization [facility] Address [address] [place] [address]. [place], [place] [id number] [place] [id number] Care Team Providers Care Cataract Lens Generator Name Role Phone Fabiano Mosley MD Primary Care Provider [phone] Encounter Details Date Type Department Care Team (Late st Contact Info) Description 10/25/2017 Abstract [facility] Medical [facility] Family Medicine [address] [id number] Fabiano Mosley MD [address] [place] [address] Social History Tobacco Use Types Packs/Day Years Used Date Smoking Tobacco: Never Assessed Sex and Gender Information Value Date Recorded Sex Assigned at Not on file Legal Sex Male 7:19 PM CDT Gender Identity Not on file Sexual Orientation Not on file documented as of this encounter Last Filed Vital Signs Vital Sign Reading Time Taken Comments Blood Pressure 123/81 10/25/2017 3:06 PM CDT Pulse 78 10/25/2017 3:06 PM CDT Temperature - - Respiratory Rate - - Oxygen Saturation - - Inhaled Oxygen Concentration - - Weight 75.3 kg (166 lb) 10/25/2017 3:06 PM CDT Height 185.4 cm (6' 1 ) 10/11/2017 10:17 AM CDT Body Mass Index 21.9 10/11/2017 10:17 AM CDT documented in this encounter Progress Notes * Fabiano Mosley MD - 10/25/2017 3:00 PM CDT Chief Complaint patient presents for 2 weeks follow up and to discuss labs History of Present Illness HPI Free Text: 67 yo presents for follow up on labs and and interventions. . Review of Systems Constitutional: feeling tired, but Normal. ENT: normal. Cardiovascular: Normal. Respiratory: Normal. Gastrointestinal: Normal. Genitourinary: dysuria and nocturia, but no urinary hesitancy, no genital lesions, no inadequacy ofpenile erections and no incontinence. Integumentary: Normal. Active Problems 1. Advance directive discussed with [...] (305.1) (F17.210) 15. Vision changes (368.9) (H53.9) Past Medical History 1. History of hearing loss (V12.49) (Z86.69) 2. History of Numbness of face (782.0) (R20.0) Family History Mother 1. Family history of liver cancer (V16.0) (Z80.0) Father 2. Family history of arteriosclerotic cardiovascular disease (V17.49) (Z82.49) Child 3. No pertinent family history Sister 4. Family history of lung cancer (V16.1) (Z80.1) Brother 5. Family history of arteriosclerotic cardiovascular disease (V17.49) (Z82.49) Social History ?? Current every day smoker (305.1) (F17.200) ?? No alcohol use ?? No caffeine use ?? Smoking greater than 30 pack years (305.1) (F17.210) Current Meds 1. Aspirin 325 MG Oral Tablet; TAKE 1 TABLET DAILY; Therapy: 11Oct2017 to Recorded 2. Cialis 5 MG Oral Tablet; Take 1 tablet daily; Therapy: 11Oct2017 to (Evaluate:16Jan2018) Requested for: [id number]; Last Rx:[id number] Ordered Allergies 1. No Known Drug Allergies 2. Mold Vitals Recorded: 25Oct2017 03:06PM Recorded: 11Oct2017 10:17AM Temperature 98 F 97 F Heart Rate 78 87 Respiration 18 18 Systolic 123 Diastolic 81 O2 Saturation 97 98 Weight 166 lb 159 lb BMI Calculated 21.9 20.98 BSA Calculated 1.99 1.95 Height 6 ft 1 in Physical Exam Constitutional General appearance: No acute distress, well appearing and well nourished. Psychiatric Mood and affect: Normal. Results/Data HIV AB AND ANTIGEN 18Oct2017 06:15PM Fabiano Mosley Test Name Result Flag Reference HIV AG/AB, 4TH GEN NON-REACTIVE NR *A1C In Office 18Oct2017 01:32PM Fabiano Mosley Test Name Result Flag Reference A1C 5.4 4.2 - 6.5 % HbA1C TSH W Reflex Free T4 18Oct2017 01:14PM Fabiano Mosley Test Name Result Flag Reference TSH w Reflex Free T4 0.858 uIU/ML 0.358-3.74 HIGH DOSES OF BIOTIN MAY INTERFERE WITH THIS TEST RESULT. CORRELATION TO CLINICAL HISTORY AND PRESENTATION RECOMMENDED. FREE T4 NOT INDICATED Vitamin B12 18Oct2017 01:14PM Fabiano Mosley Test Name Result Flag Reference Vitamin B12 783 PG/ML 254-1320 Free / Total Testosterone 18Oct2017 01:14PM Fabiano Mosley Test Name Result Flag Reference TESTOSTERONE,TOTAL,LC/MS/MS 671 Reference range: 250 to 1100 Unit: ng/dL Men with clinically significant hypogonadal symptoms and testosterone values repeatedly in the range of the 200-300 ng/dL or less, may benefit from testosterone treatment after adequate risk and benefits counseling. For more information on this test, go to http://education.[employer].Proterro/faq/ TotalTestosteroneLCMSMS This test was developed and its analytical performance characteristics have been determined by [facility] [place]. It has not been cleared or approved by the U.S. Food and Drug Administration. This assay has been validated pursuant to the CLIA regulations and is used for clinical purposes. TESTOSTERONE,FREE 67.8 Reference range: 35.0 to 155.0 Unit: pg/mL This test was developed and its analytical performance characteristics have been determined by [facility] [place], [place]. It has not been cleared or approved by the U.S. Food and Drug Administration. This assay has been validated pursuant to the CLIA regulations and is used for clinical purposes. Test Performed by [facility], [facility], [address] [place] [address] Billy Freeman M.D., Ph.D., Director of Laboratories , CLIA [id number] CBC W Differential [id number] 01:14PM Fabiano Mosley Test Name Result Flag Reference WBC 6.4 x10'3/uL 4.5-11.0 RBC 4.63 x10'6/uL L 4.70-6.10 Hemoglobin (HGB) 14.3 G/DL 14.0-18.0 Hematocrit (HCT) 44.4 % 43.0-54.0 Mean Corpuscular Volume (MCV) 95.9 FL H 80.0-94.0 Mean Corpuscular Hgb (MCH) 30.9 PG 27.0-31.0 Mean Corpuscular Hgb Conc (MCH 32.2 G/DL 32.0-36.0 RDW 13.5 % 11.5-14.5 PLATELET COUNT 214 x10'3/uL 130-400 Mean Platelet Volume (MPV) 11.3 FL 9.3-12.2 Basophils % (Auto) 0.6 % Eosinophils % (Auto) 5.0 % NEUTROPHILS 61.3 % Lymphocytes % (Auto) 24.4 % IMMATURE GRANULOCYTES 0.6 % H 0 Total Absolute Neutrophils 3.92 x10'3/uL 1.80-7.70 MONOCYTES 8.1 % ABS. LYMPHOCYTES 1.56 x10'3/uL 1.00-4.80 DIFF TYPE AUTOMATED DIFFERENTIAL ABS. MONOCYTES 0.52 x10'3/uL 0.30-0.82 ABS. EOSINOPHILS 0.32 x10'3/uL 0.04-0.54 ABS. BASOPHILS 0.04 x10'3/uL 0.01-0.08 ABS. IMMATURE GRANS 0.04 x10'3/uL H 0.00-0.03 Lipid Profile [id number] 01:14PM Fabiano Mosley Test Name Result Flag Reference CHOLESTEROL 186 MG/DL <200 TRIGLYCERIDE 49 MG/DL <150 HDL CHOLESTEROL 52 MG/DL >40.0 LDL CALCULATED 124.2 MG/DL H <100 Non HDL, Calc 134 MG/DL H <130 CHOL/HDL RATIO 3.6 0.0-4.5 VLDL Cholesterol 10 MG/DL 5-55 Lipid Profile Comment 1 (Report) NIH CONCENSUS REPORT RECOMMENDATIONS: ADULT CHILD LOW RISK: CHOLESTEROL <200 <170 TRIGLYCERIDE <150 --- HDL >=60 --- LDL <100 <110 BORDERLINE: CHOLESTEROL 200-239 170-199 TRIGLYCERIDE 150-199 --- HDL 40-59 --- LDL 100-159 110-129 HIGH RISK: CHOLESTEROL >=240 >=200 TRIGLYCERIDE >=200 --- HDL <40 --- LDL >=160 >=130 Urinalysis ( UA ) Culture If Ind [id number] 01:14PM Fabiano Mosley Test Name Result Flag Reference Specimen Type URINE CLEAN CATCH COLOR YELLOW CLARITY CLEAR Urine Specific [place] 1.018 1.001-1.030 PH URINE 5.0 5.0-9.0 Urine Leukocyte Esterase NEGATIVE NEG Urine Nitrite NEGATIVE NEG PROTEIN NEGATIVE MG/DL <30 GLUCOSE NEGATIVE MG/DL NEG KETONE NEGATIVE MG/DL NEG UROBILINOGEN NEGATIVE MG/DL NEG BILIRUBIN NEGATIVE MG/DL NEG Urine Occult Blood NEGATIVE NEG Culture Indicated CULTURE IS NOT INDICATED Hyaline Cast RARE /LPF Urine RBC <1 /HPF <6 WBCS 1 /HPF <6 Urine Bacteria RARE /HPF A NONE Urine Mucus RARE /LPF Prostate Specif Ag ( PSA ) Scrn [id number] 01:14PM Fabiano Mosley Test Name Result Flag Reference Prostate Specific Antigen 13.00 NG/ML H <4.00 Test was performed using the Siemens method. Results obtained with other assay methods or kits cannot be used interchangeably with results obtained by the Siemens method. Hepatitis C Virus ( HCV ) Ab [id number] 01:14PM Fabiano Mosley Test Name Result Flag Reference HEPATITIS C ANTIBODY NON-REACTIVE NR Rapid Plasmin Reagin ( RPR ) [id number] 01:14PM Fabiano Mosley Test Name Result Flag Reference Rapid Plasmin Reagin (RPR) Nonreactive Reference range: Nonreactive RPR Titer Additional Testing REPORT Not indicated. Test Performed by [facility], [facility], [address] [place] [address] Billy Freeman M.D., Ph.D., Director of Laboratories , CLIA [id number] Vitamin D 25 - Hydroxy [id number] 01:14PM Fabiano Mosley Test Name Result Flag Reference Vitamin D 25-Hydroxy 28 NG/ML L 30-100 INTERPRETATION DEFICIENT <20 INSUFFICIENT 20-29 SUFFICIENT 30-100 Compr Metabolic Prof ( CMP ) [id number] 01:14PM Fabiano Mosley Test Name Result Flag Reference Sodium (Na) 139 MMOL/L 136-145 Potassium (K) 4.5 MMOL/L 3.5-5.1 Chloride (Cl) 106 MMOL/L 100-108 Carbon Dioxide (CO2) 27.1 MMOL/L 21-32 Anion Gap 10.4 MMOL/L 8-20 Blood Urea Nitrogen (BUN) 20 MG/DL H 7-18 Creatinine 1.08 MG/DL 0.7-1.3 Glomerular Filt Rate Calc 71 ML/MIN/1.73 M2 L >90 Glomerular Filt Rate (AA) Calc 82 ML/MIN/1.73 M2 L >90 NOTE: eGFR is not calculated for patients <18 years of age. This is an estimated GFR (CKD EPI) and should not be used for calculating drug doses. BUN CREATININE RATIO 18.5 6-26 Glucose 93 MG/DL 70-99 Calcium 9.0 MG/DL 8.5-10.1 Total Bilirubin 0.6 MG/DL 0.2-1.2 AST/GOT 24 U/L 15-37 ALT/GPT 27 U/L 16-60 Alkaline Phosphatase (ALKP) 97 U/L 50-136 Total Protein 6.7 G/DL 6.4-8.2 Albumin 3.9 G/DL 3.4-5.0 A:G Ratio 1.4 RATIO 1.0-2.0 Direct Bilirubin [id number] 01:14PM Fabiano Mosley Test Name Result Flag Reference Direct Bilirubin 0.2 MG/DL 0.0-0.20 Chlamydia Trachomatis ( PCR ) [id number] 01:14PM Fabiano Mosley Test Name Result Flag Reference SPECIMEN SITE: uvoid CHLAMYDIA RESULT (Report) NEG NEGATIVE This test was performed using the APTIMA Combo 2 Chlamydia trachomatis Neisseria gonorrhoeae RNA Amplified Probe Assay which detects the presence of C. trachomatis and N. gonorrhoeae rRNA in clinical specimens. This assay was validated by [facility] and cleared by the FDA for endocervical and male urethral swabs from symptomatic and asymptomatic patients. The APTIMA Combo 2 assay it not intended for the evaluation of suspect sexual abuse or for medico-legal indication. For those patients for whom a false positive result may have adverse psycho-social impact, the CDC recommends retesting. Performed at [facility], [address] [place] [address] N gonorrhoeae ( GC ) By PCR [id number] 01:14PM Fabiano Mosley Test Name Result Flag Reference Neiserria gonorrhoeae (PCR) (Report) NEG NEGATIVE This test was performed using the APTIMA Combo 2 Chlamydia trachomatis Neisseria gonorrhoeae RNA Amplified Probe Assay which detects the presence of C. trachomatis and N. gonorrhoeae rRNA in clinical specimens. This assay was validated by [facility] and cleared by the FDA for endocervical and male urethral swabs from symptomatic and asymptomatic patients. The APTIMA Combo 2 assay it not intended for the evaluation of suspect sexual abuse or for medico-legal indication. For those patients for whom a false positive result may have adverse psycho-social impact, the CDC recommends retesting. Performed at [facility], [address] [place] [address] Source uvoid Assessment 1. Elevated PSA (790.93) (R97.20) 2. Dysuria (788.1) (R30.0) 3. Vitamin D deficiency (268.9) (E55.9) 4. Hemorrhoids (455.6) (K64.9) Plan Dysuria 1. Sulfamethoxazole-Trimethoprim 800-160 MG Oral Tablet (Bactrim DS); TAKE 1 TABLET TWICE DAILY UNTIL FINISHED Rx By: Fabiano Mosley; Dispense: 7 Days ; #:14 Tablet; Refill: 0; For: Dysuria; SIRI = N; Verified Transmission to [facility] #[id number]; Last Updated By: Solomon Suazo; 10/25/2017 3:56:13 PM Elevated PSA 2. Prostate Specif Ag ( PSA ); Status:Hold For - Manual Activation; Requested for:[id number]; [facility]form:[facility]; Due:24Nov2017;Ordered; For:Elevated PSA; Ordered By:Fabiano Mosley; Hemorrhoids 3. Proctosol HC 2.5 % Rectal Cream; INSERT 1 APPLICATORFUL RECTALLY 3 TIMES DAILY Rx By: Fabiano Mosley; Dispense: 0 Days ; #:1 X 28.35 GM Tube; Refill: 0; For: Hemorrhoids; SIRI = N; Sent To: [facility] #[id number] Vitamin D deficiency 4. Vitamin D3 5000 UNIT Oral Capsule; TAKE DIRECTED Rx By: Fabiano Mosley; Dispense: 0 Days ; #:90 Capsule; Refill: 0; For: Vitamin D deficiency; SIRI = N; Record Hemorrhoid -Hemorrhoid cream prescribed Health Maintenance. -ASCVD 13%, with ldl decrease optimization to 9 %. reviewed statin with patient. Will consider in near future. BPH -Prostate exam normal outside of hypertrophy. PSA elevated, no sex or riding bikes, will repeat psaand consult urology if continues to be elevated. Dysuria -Urinalysis, gc/chlamydia normal. Decreased GFR, will repeat in 2 weeks. May trial Bactrim, in light of elevate PSA, no signs from previous exam of prostatitis or from labs. Smoking -Smoking Cessation, quit day of last visit. Fatigue -Likely multifactorial. bph and dysuria causing decreased sleep and discomfort during day. 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 Poor diet. Specific labs looking for other causes ordered, cbc, ua, tsh, b12, testosterone which were normal Vitamin D deficiency -Low vitamin d, will start on supplement. 5k u nits daily for one month, then 2k, repeat lab in 3-6months. Dysthmic -PHQ9 revealed moderate depression, but states these feelings are just over past month secondary todental, urinary, and work related issues. Expect for scores to greatly improve with interventions. ED -normal testosterone, will picker and sorter load and unload Karens today Signatures Electronically signed by : Fabiano Mosley M.D.; Oct 26 2017 10:24AM ADMISSIONS CONSULTANT (Author) documented in this encounter Plan of Treatment Not on file documented as of this encounter Procedures Procedure Name Priority Date/Time Associated Diagnosis Comments PROSTATE SPECIFIC ANTIGEN,TOTAL Routine 11/02/2017 1:55 PM CDT documented in this encounter Results * (ABNORMAL) PROSTATE SPECIFIC ANTIGEN,TOTAL (11/02/2017 1:55 PM CDT) PSA 14.30(H) <4.00 NG/ML [facility] TO EPIC CONVERSION Comment: Result Comment: Test was performed using the Siemens method. ??Results obtained with other assay methods or kits cannot be used interchangeably with results obtained by the Siemens method. 11/02/2017 1:55 PM CDT 11/02/2017 1:55 PM CDT Narrative [facility] TO EP[facility] CONVERSION - 11/02/2017 8:29 PM CDT Result Communication: No patient communication needed at this time us Fabiano Mosley MD LABORATORY Final Result [facility] TO [facility] CONVERSION documented in this encounter Visit Diagnoses Not on filedocumented in this encounter Care Teams Cataract Lens Generator Relationship Specialty Start Date End Date Fabiano Mosley MD PCP - General FAMILY PRACTICE 11/01/17 02/21/21 documented as of this encounter
--- OUTSIDE RECORDS SUMMARY | 2024-04-12 08:53 | XMS_ITS | Encounter Summary ---
Author Organization [facility] Address [address] [place] [address]. [place] [address] Care Team Providers Care Steel Spar Operator Name Role Phone Fabiano Mosley MD Primary Care Provider [phone] Encounter Details Date Type Department Care Team (Latest Contact Info) Description 10/18/2017 [facility] Social History Tobacco Use [...] Associated Diagnosis Comments COMPREHENSIVE METABOLIC PANEL Routine 10/18/2017 1:14 PM CDT DIRECT BILIRUBIN Routine 10/18/2017 1:14 PM CDT documented in this encounter Results * (ABNORMAL) COMPREHENSIVE METABOLIC PANEL (10/18/2017 1:14 PM CDT) SODIUM S/P/B 139 136 - 145 MMOL/L [facility] TO [facility] CONVERSION POTASSIUM S/P/B 4.5 3.5 - 5.1 MMOL/L [facility] TO [facility] CONVERSION CHLORIDE S/P/B 106 100 - 108 MMOL/L [facility] TO [facility]IC CONVERSION CO2 27.1 21 - 32 MMOL/L [facility] TO [facility]IC CONVERSION ANION GAP 10.4 8 - 20 MMOL/L [facility] TO [facility]IC CONVERSION BUN 20(H) 7 - 18 MG/DL [facility] TO [facility]IC CONVERSION CREATININE S/P/B 1.08 0.7 - 1.3 MG/DL [facility] TO [facility]IC CONVERSION GFR ESTIMATE 71(L) >90 ML/MIN/1.7 3 M2 [facility] TO [facility]IC CONVERSION EGFR AFR. AMER. 82(L) >90 ML/MIN/1.7 3 M2 [facility] TO EPIC CONVERSION Comment: Result Comment: NOTE: eGFR is not calculated for patients <18 years of age. This is an estimated GFR (CKD EPI) and should not be used for calculating drug doses. BUN CREATININE RATIO 18.5 6 - 26 [facility] TO [facility]IC CONVERSION GLUCOSE 93 70 - 99 MG/DL [facility] TO [facility]IC CONVERSION CALCIUM S/P/B 9.0 8.5 - 10.1 MG/DL [facility] TO EPIC CONVERSION BILIRUBIN TOTAL S/P/B 0.6 0.2 - 1.2 MG/DL [facility] TO [facility]IC CONVERSION AST 24 15 - 37 U/L [facility] TO [facility]IC CONVERSION ALT 27 16 - 60 U/L [facility] TO [facility]IC CONVERSION ALKALINE PHOSPHATASE S/P/B 97 50 - 136 U/L [facility] TO EPIC CONVERSION TOTAL PROTEIN S/P/B 6.7 6.4 - 8.2 G/DL [facility] TO [facility]IC CONVERSION ALBUMIN S/P/B 3.9 3.4 - 5.0 G/DL [facility] TO [facility]IC CONVERSION A/G RATIO 1.4 1.0 - 2.0 RATIO [facility] TO [facility]IC CONVERSION 10/18/2017 1:14 PM CDT 10/18/2017 1:14 PM CDT Narrative [facility] TO EPIC CONVERSION - 10/18/2017 8:23 PM CDT Result Communication: No patient communication needed at this time us Fabiano Mosley MD LABORATORY Final Result [facility] TO [facility]IC CONVERSION * DIRECT BILIRUBIN (10/18/2017 1:14 PM CDT) BILIRUBIN DIRECT S/P/B 0.2 0.0 - 0.20 MG/DL [facility] TO EPIC CONVERSION 10/18/2017 1:14 PM CDT 10/18/2017 1:14 PM CDT Narrative [facility] TO EPIC CONVERSION - 10/18/2017 8:23 PM CDT Result Communication: No patient communication needed at this time us Fabiano Mosley MD LABORATORY Final Result [facility] TO [facility]IC CONVERSION documented in this encounter Visit Diagnoses Not on filedocumented in this encounter Care Teams Steel Spar Operator Relationship Specialty Start Date End Date Fabiano Mosley MD PCP - General FAMILY PRACTICE 11/01/17 02/21/21 documented as of this encounter
--- OUTSIDE RECORDS SUMMARY | 2024-04-12 08:53 | XMS_ITS | Encounter Summary ---
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 <200 MG/DL [facility] TO EPIC CONVERSION TRIGLYCERIDES 49 <150 MG/DL [facility] TO EPIC CONVERSION HDL 52 >40.0 MG/DL [facility] TO EPIC CONVERSION LDL (CALCULATED) 124.2(H) <100 MG/DL [facility] TO EPIC CONVERSION NON HDL CHOLESTEROL 134(H) <130 MG/DL [facility] TO EPIC CONVERSION CHOL/HDL RATIO 3.6 0.0 - 4.5 [facility] TO EPIC CONVERSION VLDL CHOLESTEROL (LMP) 10 5 - 55 MG/DL [facility] TO EPIC CONVERSION LIPID INTERPRETATION NIH CONCENSUS REPORT RECOMMENDATI ONS: ?ADULT ?CHILD ??LOW RISK: ?CHOLESTERO L ? <200 ? <170 ?TRIGLYCERI DE ?<150 ?--- ?HDL ? >=60 ?--- ?LDL ? <100 ? <110 ?BORDERLINE : ?CHOLESTERO L ? 200-239 ?? 170-199 ?TRIGLYCERI DE ?150-199 ? --- ?HDL ?40-59 ?--- ?LDL ? 100-159 ?? 110-129 ?HIGH RISK: ?CHOLESTERO L ? >=240 ?>=200 ?TRIGLYCERI DE ?>=200 ? --- ?HDL ?<40 ?--- ?LDL ? >=160 ?>=130 [facility] TO EPIC CONVERSION 10/18/2017 1:14 PM CDT 10/18/2017 1:14 PM CDT Narrative [facility] TO EPIC CONVERSION - 10/18/2017 8:23 PM CDT Result Communication: No patient communication needed at this time us Fabiano Mosley MD LABORATORY Final Result [facility] TO EPIC CONVERSION * (ABNORMAL) CBC W/DIFF AUTOMATED (10/18/2017 1:14 PM CDT) WBC 6.4 4.5 - 11.0 x10'3/uL [facility] TO EPIC CONVERSION RBC 4.63(L) 4.70 - 6.10 x10'6/uL [facility] TO EPIC CONVERSION HGB 14.3 14.0 - 18.0 G/DL [facility] TO EPIC CONVERSION HCT 44.4 43.0 - 54.0 % [facility] TO EPIC CONVERSION MCV 95.9(H) 80.0 - 94.0 FL [facility] TO EPIC CONVERSION MCH 30.9 27.0 - 31.0 PG [facility] TO EPIC CONVERSION MCHC 32.2 32.0 - 36.0 G/DL [facility] TO EPIC CONVERSION RDW 13.5 11.5 - 14.5 % [facility] TO EPIC CONVERSION PLT 214 130 - 400 x10'3/uL [facility] TO EPIC CONVERSION GLUCOSE 11.3 9.3 - 12.2 FL [facility] TO EPIC CONVERSION BASOPHILS % 0.6 % [facility] TO EPIC CONVERSION EOSINOPHILS % 5.0 % MED[facility]O UP TO EPIC CONVERSION NEUTROPHILS % 61.3 % [facility] UP TO EPIC CONVERSION LYMPHOCYTES % 24.4 % [facility] UP TO EPIC CONVERSION IMMATURE GRANS % 0.6(H) 0 % [facility] TO EPIC CONVERSION ABS. NEUTROPHILS TOTAL 3.92 1.80 - 7.70 x10'3/uL [facility] TO EPIC CONVERSION MONOCYTES 8.1 % [facility] T O EPIC CONVERSION ABS. LYMPHOCYTES 1.56 1.00 - 4.80 x10'3/uL [facility] TO EPIC CONVERSION DIFFERENTIAL TYPE AUTOMATED DIFFERENTIAL [facility] TO EPIC CONVERSION ABS. MONOCYTES 0.52 0.30 - 0.82 x10'3/uL [facility] TO EPIC CONVERSION ABS. EOSINOPHILS 0.32 0.04 - 0.54 x10'3/uL [facility] TO EPIC CONVERSION ABS. BASOPHILS 0.04 0.01 - 0.08 x10'3/uL [facility] TO EPIC CONVERSION ABS. IMMATURE GRANULOCYTES 0.04(H) 0.00 - 0.03 x10'3/uL [facility] TO EPIC CONVERSION 10/18/2017 1:14 PM CDT 10/18/2017 1:14 PM CDT Narrative [facility] TO EPIC CONVERSION - 10/18/2017 7:41 PM CDT Result Communication: No patient communication needed at this time us Fabiano Mosley MD LABORATORY Final Result [facility] TO EPIC CONVERSION * TSH W/REFLEX (SNS) (10/18/2017 1:14 PM CDT) TSH 0.858 0.358 - 3.74 uIU/ML [facility] TO EPIC CONVERSION Comment: Result Comment: HIGH DOSES OF BIOTIN MAY INTERFERE WITH THIS TEST RESULT. CORRELATION TO CLINICAL HISTORY AND PRESENTATION RECOMMENDED. FREE T4 NOT INDICATED 10/18/2017 1:14 PM CDT 10/18/2017 1:14 PM CDT Narrative [facility] TO EPIC CONVERSION - 10/18/2017 8:23 PM CDT Result Communication: No patient communication needed at this time us Fabiano Mosley MD LABORATORY Final Result Performing Organization Address City/[facility]/ZIP Co de Phone Number [employer] TO EPIC CONVERSION * SYPHILIS/RPR/VDRL; QUAL (10/18/2017 1:14 PM CDT) RPR Nonreactive Reference range: Nonreactive [facility] TO EPIC CONVERSION RPR TITER REPORT Not indicated. Test Performed by [facility], [facility], [address] [place] [address] Billy Freeman M.D., Ph.D., Director of Laboratories , CLIA [id number] [facility] TO EPIC CONVERSION 10/18/2017 1:14 PM CDT 10/18/2017 1:14 PM CDT Narrative [facility] TO EPIC CONVERSION - 10/20/2017 2:54 PM CDT Result Communication: No patient communication needed at this time Fabiano Mosley MD LABORATORY Final Result Performing Organization Address [facility] de Phone Number [facility] TO EPIC CONVERSION * (ABNORMAL) VITAMIN D, 25 OH (10/18/2017 1:14 PM CDT) VITAMIN D 25 HYDROXY S/P/B 28(L) 30 - 100 NG/ML [facility] TO EPIC CONVERSION Comment: Result Comment: ? INTERPRETATION ? DEFICIENT ??<20 ? INSUFFICIENT 20-29 ?SUFFICIENT 30-100 10/18/2017 1:14 PM CDT 10/18/2017 1:14 PM CDT Narrative [facility] TO EPIC CONVERSION - 10/19/2017 7:24 AM CDT Result Communication: No patient communication needed at this time Fabiano Mosley MD LABORATORY Final Result Performing Organization Address [facility] Phone Number [facility] TO EPIC CONVERSION * TESTOSTERONE, FREE & TOTAL (10/18/2017 1:14 PM CDT) TESTOSTERONE TOTAL 671 [facility] TO EPIC CONVERSION Comment: Result Comment: Reference range: 250 to 1100 Unit: ng/dL Men with clinically significant hypogonadal symptoms and testosterone values repeatedly in the range of the 200-300 ng/dL or less, may benefit from testosterone treatment after adequate risk and benefits counseling. For more information on this test, go to http://education.[employer]com/faq/ TotalTestosteroneLCMSMS This test was developed and its analytical performance characteristics have been determined by [facility] [place], [place]. It has not been cleared or approved by the U.S. Food and Drug Administration. This assay has been validated pursuant to the CLIA regulations and is used for clinical purposes. TESTOSTERONE FREE 67.8 ME D[facility] TO EPIC CONVERSION Comment: Result Comment: Reference range: 35.0 to 155.0 Unit: pg/mL This test was developed and its analytical performance characteristics have been determined by [facility], [place]. It has not been cleared or approved by the U.S. Food and Drug Administration. This assay has been validated pursuant to the CLIA regulations and is used for clinical purposes. Test Performed by [facility], [facility], [address] [place], [place] Billy Freeman M.D., Ph.D., Director of Laboratories , CLIA [id number] 10/18/2017 1:14 PM CDT 10/18/2017 1:14 PM CDT Narrative [facility] TO EPIC CONVERSION - 10/22/2017 11:49 AM CDT Result Communication: No patient communication needed at this time us Fabiano Mosley MD LABORATORY Final Result [facility] TO EPIC CONVERSION * (ABNORMAL) URINALYSIS WI REFLEX TO CULTURE (10/18/2017 1:14 PM CDT) SPECIMEN TYPE URINE CLEAN CATCH [facility] TO EPIC CONVERSION COLOR (U) YELLOW [facility] T O EPIC CONVERSION TRANSPARENCY CLEAR MED[facility] P TO EPIC CONVERSION SPECIFIC GRAVITY (U) 1.018 1.001 - 1.030 [facility] TO EPIC CONVERSION U PH 5.0 5.0 - 9.0 [facility] T O EPIC CONVERSION LEUKOCYTES (U) NEGATIVE NEG MEDGR OUP TO EPIC CONVERSION NITRITES NEGATIVE NEG [facility] T O EPIC CONVERSION PROTEIN (U) NEGATIVE <30 MG/DL [facility] TO EPIC CONVERSION GLUCOSE NEGATIVE NEG MG/DL [facility] T O EPIC CONVERSION KETONES MG/DL (U) NEGATIVE NEG MG/DL [facility] TO EPIC CONVERSION UROBILINOGEN NEGATIVE NEG MG/DL [facility] P TO EPIC CONVERSION BILIRUBIN (U) NEGATIVE NEG MG/DL MEDGRO UP TO EPIC CONVERSION BLOOD (U) NEGATIVE NEG [facility] T O EPIC CONVERSION REFLEX URINE CULTURE: CULTURE IS NOT INDICATED [facility] TO EPIC CONVERSION HYALINE CASTS RARE /LPF MEDGRO UP TO EPIC CONVERSION RBC/HPF <1 <6 /HPF [facility] T O EPIC CONVERSION WBC 1 <6 /HPF [facility] T O EPIC CONVERSION BACTERIA (U) RARE(A) NONE /HPF MED[facility]OU P TO EPIC CONVERSION MUCUS RARE /LPF [facility] T O EPIC CONVERSION 10/18/2017 1:14 PM CDT 10/18/2017 1:14 PM CDT Narrative [facility] TO EPIC CONVERSION - 10/19/2017 1:51 AM CDT Result Communication: No patient communication needed at this time us Fabiano Mosley MD URINE ORDERABLES Final Result [facility] TO EPIC CONVERSION documented in this encounter Visit Diagnoses Not on filedocumented in this encounter Care Teams Technology Analyst Relationship Specialty Start Date End Date Fabiano Mosley MD PCP - General FAMILY PRACTICE 11/01/17 02/21/21 documented as of this encounter
--- OUTSIDE RECORDS SUMMARY | 2024-04-12 08:54 | XMS_ITS | Encounter Summary ---
Author Organization [facility] Address [address] [place] [address]. [place], [place] [id number] [place] [address] Care Team Providers Care Financial Services Officer Name Role Phone Unavailable Primary Care Provider Unavailabl e Encounter Details Date Type Department Care Team (Late st Contact Info) Description 05/01/2008 Abstract [facility] [employer] Bl Diagnostic Imaging [address] [place] [address] Kavon Bhatti, DO [facility] [address] [place] [address] Social History Tobacco Use Types Packs/Day Years [...]
--- OUTSIDE RECORDS SUMMARY | 2024-04-12 08:54 | XMS_ITS | Encounter Summary ---
Author Organization [facility] Address [address] [place] [address]. [place], [place] [id number] [place] [address] Care Team Providers Care Form Layer Name Role Phone Unavailable Primary Care Provider Unavailabl e Encounter Details Date Type Department Care Team (Late st Contact Info) Description 04/20/2008 Abstract [facility] [place] [address] Kavon Bhatti, [address] [address] Social History Tobacco Use Types Packs/Day Years [...]
--- OUTSIDE RECORDS SUMMARY | 2024-04-12 08:54 | XMS_ITS | Encounter Summary ---
Author Organization [facility] Address [address] [place] [address]. [place], [place] [id number] [place] [address] Care Team Providers Care Highway Administrative Engineer Name Role Phone Unavailable Primary Care Provider Unavailabl e Encounter Details Date Type Department Care Team (Late st Contact Info) Description 04/12/[address] [facility] Emergency Room [place], [place] [id number] Marlo Bsas MD [address] [facility] [address] [id number] Social History Tobacco Use Types Packs/Day Years [...]
--- OUTSIDE RECORDS SUMMARY | 2024-04-12 08:54 | XMS_ITS | Encounter Summary ---
Author Organization [facility] Address [address] [place] [address]. [place], [place] [address] [place] [address] Care Team Providers Care Purchaser Automotive Parts Name Role Phone Unavailable Primary Care Provider Unavailabl e Encounter Details Date Type Department Care Team (Late st Contact Info) Description 06/02/2008 Abstract [facility]VERSION [address] [place], [place] [phone] Kavon Bhatti, [place] [address] Social History Tobacco Use Types Packs/Day Years [...]
--- OUTSIDE RECORDS SUMMARY | 2024-04-12 09:01 | XMS_ITS | Encounter Summary ---
Author Organization [facility] Address [address] [place] [address] Care Team Providers Care Security Systems Integrator Name Role Phone Fabiano Mosley MD Primary Care Provider [phone] Reason for Referral * Radiology Services (Routine) - Closed Specialty Diagnoses / Procedures Referred By Lissa hermosillo Referred To Contact Vascular Lab Diagnoses Pulsatile abdomen Procedures US AAA Screening VAS AAA Screening Viola Browne APRN-CNP [address] [place] [address] [facility] Vascular Us [facility] [place] [address] Referral ID Status Reason Start Date Expiration Date Visits Re quested Visits Authorized [id number] Closed 11/27/2023 11/26/2024 1 1 Reason for Visit * Radiology Services (Routine) - Closed Specialty Diagnoses / Procedures Referred By Lissa hermosillo Referred To Contact Vascular Lab Diagnoses Pulsatile abdomen Procedures US AAA Screening VAS AAA Screening Viola Browne APRN-CNP [address] [place] [address] [facility] Vascular Us [address] [place] [address] Referral ID Status Reason Start Date Expiration Date Visits Re quested Visits Authorized [id number] Closed 11/27/2023 11/26/2024 1 1 Encounter Details Date Type Department Care Team (Latest Contact Info) Description 02/04/2024 2:00 PM CDT - 02/04/2024 11:59 PM CDT Hospital Encounter [facility] [address] [place] [address] Viola Browne, PURCHASING ADMINISTRATOR-FIELD SECRETARY [address] [place] [address] Discharge Disposition: Home or Self Care Social History Tobacco Use Types Packs/Day Years Used Date Smoking Tobacco: Every Day Cigarettes 1 18 Smokeless Tobacco: Never Alcohol Use Standard Drinks/Week Comments Not Currently 14 (1 standard drink = 0.6 oz pure alcohol) couple glasses of wine a day AUDIT-C Answer Date Recorded Q1: How often do you have a drink containing alcohol? Never 11/26/2023 Q2: How many drinks containi ng alcohol do you have on a typical day when you are drinking? Patient does not drink Q3: How often do you have si x or more drinks on one occasion? Never 11/26/2023 Overall Financial Resource Strain (CARDIA) Answe r Date Recorded How hard is it for you to pa y for the very basics like food, housing, medical care, and heating? Not hard at all 11/26/2023 [facility] [place] of Occupat ional Health - Occupational Stress Questionnaire Answer Date Recorded Do you feel stress - tense, restless, nervous, or anxious, or unable to sleep at night because your mind is troubled all the time - these days? Not at all 11/26/2023 Hunger Vital Sign Answer Date Recorded Within the past 12 months, y ou worried that your food would run out before you got the money to buy more. Never true 11/26/19 24 Within the past 12 months, t he food you bought just didn't last and you didn't have money to get more. Never true 11/26/2023 PRAPARE - Transportation Answer Date Re corded In the past 12 months, has l ack of transportation kept you from medical appointments or from getting medications? No 11/14 In the past 12 months, has l ack of transportation kept you from meetings, work, or from getting things needed for daily living? No 11/26/2023 Housing Stability Vital Sign Answer Edward e Recorded In the last 12 months, was t here a time when you were not able to pay the mortgage or rent on time? No 11/26/2023 In the last 12 months, how many places have you lived? 1 11/26/2023 In the last 12 months, was t here a time when you did not have a steady place to sleep or slept in a [place] (including now)? No 11/26/2023 Sex and Gender Information Value Date Recorded Sex Assigned at Not on file Gender Identity Not on file Sexual Orientation Not on file documented as of this encounter Functional Status Functional Status Response Date of Assess ment Is person deaf or have serious hearing difficult y? No 11/26/2023 Is person blind or have serious difficulty seein g? No 11/26/2023 Does person have serious dif ficulty walking/climbing stairs? No 11/26/2023 Does person have difficulty dressing/bathing? No 11/26/2023 Does person have difficulty doing errands alone? No 11/26/2023 Cognitive Status Response Date of Assessm ent Does person have difficulty concentrating/remembering/making decisions? No 11/26/2023 documented as of this encounter Medications at Time of Discharge Medication Sig Dispensed Refills Start Date End Date amLODIPine-benazepril (Lotrel) 5-20 MG capsule Take 1 (one) capsule by mouth once daily 12/19/2023 aspirin (Aspirin) 81 MG chew tablet Take 1 (one) tablet by mouth once daily oorkpcb-fjhvxaaorxqtu-fki feine 250-250-65 MG tablet Take 1 (one) tablet by mouth every 4 hours as needed for Headache atorvastatin (Lipitor) 40 MG tablet Take 1 (one) tablet by mouth once daily 10/31/2023 cyclobenzaprine (Flexeril) 5 MG tablet Take 1 (one) tablet by mouth 3 times daily as needed FOR MUSCLE SPASM 12/19/2023 ibuprofen (Motrin) 200 MG tablet Take 1 (one) tablet by mouth as needed for Pain multivitamin daily tablet Take 1 (one) tablet by mouth daily with food SUMAtriptan (Imitrex) 50 MG tablet TAKE 1 TABLET BY MOUTH FOR HEADACHE IF NO RELIEF REPEAT 1 TAB AFTER AT LEAST 2 HOURS, MAX 4 TABLETS PER DAY 11/05/2023 documented as of this encounter Plan of Treatment Upcoming Encounters Date Type Department Care Team (Late st Contact Info) Description 07/23/2024 11:00 AM CDT Appointment [facility] VASCULAR US [address] [place] [address] Herminia Howe MD [address] [facility] 2L [place] [phone] 07/23/2024 12:15 PM CDT Office Visit [facility] - [facility] Surgery [address] [facility], [place] [address] Herminia Howe MD [address] [facility] [address] [place] [address] documented as of this encounter Goals Goal Patient Goal Type Associated Problems Recent Progress Patient-Stated? Author Patient will adhere to medication regimen General On track( 023 8:59 AM CDT) Dari Gardner RN documented as of this encounter Procedures Procedure Name Priority Date/Time Associated Diagnosis Comments US AAA SCREENING Routine 02/04/2024 2:54 PM CDT Pulsatile abdomen documented in this encounter Results * US AAA Screening (02/04/2024 2:54 PM CDT) Anatomical Region Laterality Modality Abdomen Ultrasound 02/04/2024 3:28 PM CDT Impressions 02/04/2024 6:06 PM CDT IMPRESSION: 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 > Dictated by Humza Chappell MD > Dictated by Humza Chappell MD (Prepress Manager) 02/04/2024 3:28 PM IAgustin MD have personally reviewed and interpreted this examination/study. > Interpreting Provider: Agustin Noriega MD on 02/04/2024 6:06 PM Narrative 02/04/2024 6:06 PM CDT PROCEDURE: ??US AAA SCREENING, DATE/TIME OF EXAM: ??02/04/2024 2:54 PM, LOCATION ??[facility] INDICATION: R19.8: Pulsatile abdomen ADDITIONAL CLINICAL INFORMATION: Ordering Provider Reason For Exam: ??rule out AAA Technologist Note: Additional: COMPARISON: CT angiogram from 07/03/2022 FINDINGS: Proximal abdominal aorta: 2.1 cm AP x 2.6 cm transverse Mid abdominal aorta: 2.3 x 2.6 cm Distal abdominal aorta: 2.8 x 3.3 cm Right common iliac artery: 0.9 x 0.9 cm Left common iliac artery: 0.8 x 0.8 cm Distal abdominal aortic aneurysm. The abdominal aorta and common iliac arteries are patent. Hyperechoic foci in the abdominal aorta and proximal iliac arteries represent atherosclerotic plaques. Procedure Note Leona Noriega MD - 02/04/2024 PROCEDURE: US AAA SCREENING, DATE/TIME OF EXAM: 02/04/2024 2:54 PM, LOCATION [facility] INDICATION: R19.8: Pulsatile abdomen ADDITIONAL CLINICAL INFORMATION: Ordering Provider Reason For Exam: rule out AAA Technologist Note: Additional: COMPARISON: CT angiogram from 07/03/2022 FINDINGS: Proximal abdominal aorta: 2.1 cm AP x 2.6 cm transverse Mid abdominal aorta: 2.3 x 2.6 cm Distal abdominal aorta: 2.8 x 3.3 cm Right common iliac artery: 0.9 x 0.9 cm Left common iliac artery: 0.8 x 0.8 cm Distal abdominal aortic aneurysm. The abdominal aorta and common iliac arteries are patent. Hyperechoic foci in the abdominal aorta andproximal iliac arteries represent atherosclerotic plaques. 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 > Dictated by Humza Chappell MD > Dictated by Humza Chappell MD (Prepress Manager) 02/04/2024 3:28 PM Agustin Galan MD have personally reviewed and interpreted this examination/study. > Interpreting Provider: Agustin Noriega MD on 02/04/2024 6:06 PM Viola Browne PURCHASING ADMINISTRATOR-FIELD SECRETARY US ORDERABLES documented in this encounter Visit Diagnoses Diagnosis Pulsatile abdomen Other symptoms involving abdomen and pelvis documented in this encounter Care Teams Security Systems Integrator Relationship Specialty Start Date End Date Fabiano Mosley MD PCP - General 12/06/18 documented as of this encounter
--- OUTSIDE RECORDS SUMMARY | 2024-04-12 09:01 | XMS_ITS | Encounter Summary ---
Author Organization [facility] Address [address] [facility] [place] [address] Care Team Providers Care Nurse Practitioner Physicians Assistant Name Role Phone Fabiano Mosley MD Primary Care Provider [phone] Encounter Details Date Type Department Care Team (Latest Contact Info) Description 02/06/2024 Travel Social History Tobacco Use Types Packs/Day Years [...] and heating? Not hard at all 11/26/2023 [place] [facility] Occupat ional Health - Occupational Stress [...] place to sleep or slept in a alf (including now)? No 11/26/2023 Sex and Gender [...] No 11/26/2023 documented as of this encounter Plan of Treatment Upcoming Encounters Date Type Department Care Team (Late st Contact Info) Description 07/23/2024 11:00 AM CDT Appointment [facility] VASCULAR US [address] [place] [phone] Herminia Howe MD [address] [facility] [address] [facility] [place] [phone] 07/23/2024 12:15 PM CDT Office Visit [facility] [address] [facility], [place] [address] Herminia Howe MD [facility] [facility] [address] [place] [phone] documented as of this encounter Goals Goal Patient Goal Type Associated Problems Recent Progress Patient-Stated? Author Patient will adhere to medication regimen General On track( 023 8:59 AM CDT) Dari Gardner RN documented as of this encounter Visit Diagnoses Not on filedocumented in this encounter Care Teams Nurse Practitioner Physicians Assistant Relationship Specialty Start Date End Date Fabiano Mosley MD PCP - General 12/06/18 documented as of this encounter
--- OUTSIDE RECORDS SUMMARY | 2024-04-12 09:01 | XMS_ITS | Encounter Summary ---
Author Organization [facility] Address [address] [place] [address] Care Team Providers Care Certified Surgical Tech/First Assistant Name Role Phone Fabiano Mosley MD Primary Care Provider [phone] [phone] Reason for Visit * Reason Onset Date Comments Appointment 01/16/2024 Encounter Details Date Type Department Care Team (Late st Contact Info) Description 01/16/2024 Telephone [facility] - Centralized Scheduling [address] [place] [phone] Herminia Howe MD [address] [place] [address] Appointment Social History Tobacco Use Types Packs/Day Years [...] and heating? Not hard at all 11/26/2023 [facility] [place] of Occupat ional Health - Occupational Stress [...] place to sleep or slept in a retirement (including now)? No 11/26/2023 Sex and Gender [...] No 11/26/2023 documented as of this encounter Miscellaneous Notes * Telephone Encounter - Emily Corral - 01/16/2024 10:33 AM CDT LM for pt to call back to marlen post op appt with Dr Rankin on 02.06.24 ( after test - marlen for 02.04.24) Per [facility] msg from [facility] : to call pt and marlen appt with Dr Howe after scheduled test documented in this encounter Plan of Treatment Upcoming Encounters Date Type Department Care Team (Late st Contact Info) Description 07/23/2024 11:00 AM CDT Appointment [facility] VASCULAR US [address] [place] [address] [place] [address] [place] [address] [address] [place] [phone] 07/23/2024 12:15 PM CDT Office Visit [facility] - Vascular Surgery [address] [facility], [place] [address] Herminia Howe MD [address] [facility] [address] [place] [address] documented as of this encounter Goals Goal Patient Goal Type Associated Problems Recent Progress Patient-Stated? Author Patient will adhere to medication regimen General On track( 023 8:59 AM CDT) Dari Gardenr RN documented as of this encounter Visit Diagnoses Not on filedocumented in this encounter Care Teams Certified Surgical Tech/First Assistant Relationship Specialty Start Date End Date Fabiano Mosley MD PCP - General 12/06/18 documented as of this encounter
--- OUTSIDE RECORDS SUMMARY | 2024-04-12 09:01 | XMS_ITS | Encounter Summary ---
Author Organization [facility] Address [address] [place] [address] Care Team Providers Care Reinforcing Steel Worker Name Role Phone Fabiano Mosley MD Primary Care Provider [phone] [phone] Reason for Referral * Radiology Services (Routine) - Closed Specialty Diagnoses / Procedures Referred By Lissa hermosillo Referred To Contact Vascular Lab Diagnoses Carotid stenosis, asymptomatic, left Procedures VAS Carotid Duplex Bilateral Viola Browne APRN-CNP [address] [place] [address] [facility] Vascular Us [address] [place] [phone] Referral ID Status Reason Start Date Expiration Date Visits Re quested Visits Authorized [id number] Closed 11/27/2023 11/26/2024 1 1 Reason for Visit * Radiology Services (Routine) - Closed Specialty Diagnoses / Procedures Referred By Lissa hermosillo Referred To Contact Vascular Lab Diagnoses Carotid stenosis, asymptomatic, left Procedures VAS Carotid Duplex Bilateral Viola Browne APRN-CNP [address] [place] [address] [facility] Us [facility] [place] [address] Referral ID Status Reason Start Date Expiration Date Visits Re quested Visits Authorized [id number] Closed 11/27/2023 11/26/2024 1 1 Encounter Details Date Type Department Care Team (Latest Contact Info) Description 02/04/2024 12:56 PM CDT - 02/04/2024 1:59 PM CDT Hospital Encounter [facility] VASCULAR [address] [place] [address] Viola Browne, INSURANCE POLICY ISSUE CLERK-SOFTWARE TRAINER [address] [place] [address] Discharge Disposition: Home or Self Care Social [...] and heating? Not hard at all 11/26/2023 [facility] [place] of Occupat ional Health - Occupational Stress [...] place to sleep or slept in a senior living (including now)? No 11/26/2023 Sex and Gender [...] 1 (one) tablet by mouth once daily qomskvf-glyskqxlemkbk-klh feine 250-250-65 MG tablet Take 1 (one) [...] Info) Description 07/23/2024 11:00 AM CDT Appointment [facility] VASCULAR US [address] [place] [address] Herminia Howe MD [address] [facility] 2[address] [place] [phone] 07/23/2024 12:15 PM CDT Office Visit [facility] - Vascular Surgery [address] [place] [address], [place] [phone] Herminia Howe MD [address] [place] [address] [address] [place] [phone] documented as of this encounter Goals Goal Patient Goal Type Associated Problems Recent Progress Patient-Stated? Author Patient will adhere to medication regimen General On track( 023 8:59 AM CDT) No Dari Torres RN documented as of this encounter Procedures Procedure Name Priority Date/Time Associated Diagnosis Comments VAS CAROTID DUPLEX BILATERAL Routine 02/04/2024 1:49 PM CDT Carotid stenosis, asymptomatic, left documented in this encounter Results * VAS Carotid Duplex Bilateral (02/04/2024 1:49 PM CDT) Anatomical Region Laterality Modality Neck Intravascular Ul trasound 02/04/2024 1:22 PM CDT Narrative Procedure Note Jabari Williamson MD - 02/04/2024 Viola Browne INSURANCE POLICY ISSUE CLERK-SOFTWARE TRAINER VASCULAR LAB O RDERABLES documented in this encounter Visit Diagnoses Diagnosis Carotid stenosis, asymptomatic, left documented in this encounter Care Teams Reinforcing Steel Worker Relationship Specialty Start Date End Date Fabiano Mosley MD PCP - General 12/06/18 documented as of this encounter
--- OUTSIDE RECORDS SUMMARY | 2024-04-12 09:01 | XMS_ITS | Clinical Summary ---
Author Organization [facility] [employer] Address [address] [facility] [place] [address] Care Team Providers Care Screwmaker Automatic Name Role Phone Fabiano Mosley MD Primary Care Provider [phone] Source Comments [facility] [employer],non-owned Affiliates and Associated Physician Practices is amultiple site organization consisting of ambulatory clinics and hospital sitesin [place], [place], [place] and [place]. This disclosure is being madepursuant to the Care Everywhere program and may not contain all information available regarding this patient. Last updated 18.[facility] [employer] Allergies No known active allergies Medications * Be aware that medications may not be up to date on this document. Alwaysverify current medications with the patient. Medication Sig Dispensed Refills Start Date End Date Status SUMAtriptan (Imitrex) 50 MG tablet TAKE 1 TABLET BY MOUTH FOR HEADACHE IF NO RELIEF REPEAT 1 TAB AFTER AT LEAST 2 HOURS, MAX 4 TABLETS PER DAY 11/05/2023 Active atorvastatin (Lipitor) 40 MG tablet Take 1 (one) tablet by mouth once daily 10/31/2023 Active aspirin (Aspirin) 81 MG chew tablet Take 1 (one) tablet by mouth once daily Active aspirin-acetaminophen -caffeine 250-250-65 MG tablet Take 1 (one) tablet by mouth every 4 hours as needed for Headache Active ibuprofen (Motrin) 200 MG tablet Take 1 (one) tablet by mouth as needed for Pain Active multivitamin daily tablet Take 1 (one) tablet by mouth daily with food Active amLODIPine-benazepril (Lotrel) 5-20 MG capsule Take 1 (one) capsule by mouth once daily 12/19/2023 Active cyclobenzaprine (Flexeril) 5 MG tablet Take 1 (one) tablet by mouth 3 times daily as needed FOR MUSCLE SPASM 12/19/2023 Active Active Problems Problem Noted Date Diagnosed Date Carotid stenosis, asymptomatic, left 11/26/2023 Heart palpitations 12/10/2018 Chronic prostatitis 12/28/2017 Fibrosis, lung 11/27/2017 Lung nodule, solitary 11/05/2017 Elevated PSA 10/25/2017 Benign prostatic hyperplasia with urinary obstru ction 10/11/2017 Erectile dysfunction 10/11/2017 Fatigue 10/11/2017 Dysuria 10/11/2017 Encounters Date Type Department Care Team Description 03/31/2024 Travel 02/06/2024 9:00 AM CDT Office Visit [facility] [address] [place] [address] Herminia Howe MD Bilateral carotid artery stenosis (Primary Dx); Voice disturbance; S/P carotid endarterectomy 02/06/2024 Travel 02/04/2024 2:00 PM CDT - 02/04/2024 11:59 PM CDT Hospital Encounter [facility] US [address] [place] [address] Viola Browne, BOWLING ALLEY MECHANIC-[facility] Discharge Disposition: Home or Self Care 02/04/2024 12:56 PM CDT - 02/04/2024 1:59 PM CDT Hospital Encounter [facility] VASCULAR US [address] [place] [address] Viola Browne, BOWLING ALLEY MECHANIC-PHYSICAL OPTICS TEACHER Discharge Disposition: Home or Self Care 02/04/2024 Travel 01/16/2024 Telephone [facility] - Centralized Scheduling [address] [place] [address] Herminia Howe MD Appointment from Last 3 Months Family History Medical History Relation Name Comments Other - Cardiac Brother Other - Cardiac Father Diabetes; unknown type Mother Cancer - Lung Sister Relation Name Status Comments Brother Alive Father Mother Sister Social History Tobacco Use Types Packs/Day Years Used Date Smoking Tobacco: Every Day Cigarettes 1 18 Smokeless Tobacco: Never Tobacco Cessation:Ready to Q uit: Yes; Counseling Given: Yes Alcohol Use Standard Drinks/Week Comments Not Currently [...] and heating? Not hard at all 11/26/2023 [facility] [place] of Occupat ional Health - Occupational Stress [...] place to sleep or slept in a halfway (including now)? No 11/26/2023 Sex and Gender Information Value Date Recorded Sex Assigned at Not on file Gender Identity Not on file Sexual Orientation Not on file Last Filed Vital Signs Vital Sign Reading Time Taken Comments Blood Pressure 152/94 02/06/2024 9:02 AM CDT Pulse 71 02/06/2024 9:02 AM CDT Temperature 36.6 ??C (97.9 ??F) 02/06/2024 9:02 AM CD T Respiratory Rate 14 11/27/2023 12:00 PM CDT Oxygen Saturation 99% 02/06/2024 9:02 AM CDT Inhaled Oxygen Concentration 21% 11/26/2023 1 2:00 PM CDT Weight 75.8 kg (167 lb) 02/06/2024 9:02 AM CDT Height 185.4 cm (6' 1 ) 02/06/2024 9:02 AM CDT Body Mass Index 22.03 02/06/2024 9:02 AM CDT Plan of Treatment Upcoming Encounters Date Type Department Care Team (Late st Contact Info) Description 07/23/2024 11:00 AM CDT Appointment [facility] VASCULAR US [address] [place] [address] Herminia Howe MD [address] [place] [address] [address] [place] [phone] 07/23/2024 12:15 PM CDT Office Visit [facility] - [facility]ascular Surgery [facility] [facility], [place] [address] Herminia Howe MD [address] [place] [address] [address] [place] [address] Health Maintenance Due Date Last Done Comments COLOGUARD (AGES 45-75) - COL ON CA SCREENING 1951 COLON MONITORING 1951 COLONOSCOPY - COLON CA SCREENING 1951 CT COLONOGRAPHY - COLON CA SCREENING 1950 Colorectal Cancer Screening 1950 FIT - COLON CA SCREENING 1951 FLEX SIG - COLON CA SCREENING 1950 MEDICARE AWV ? 12 MONTHS 1950 PNEUMOCOCCAL VACCINE 65+ (1 of 2 - PCV) 1957 HEPATITIS C SCREENING 05/23/1969 DTAP/TDAP/TD VACCINES (1 - Tdap) 1970 ZOSTER VACCINE (1 of 2) 2001 Respiratory Syncytial Virus (RSV) Vaccine Pt: or over 60 yrs (1 - Risk 60-74 years 1-dose series) 2011 DEPRESSION SCREENING 04/16/2023 COVID-19 VACCINE (1 - 2023-2 5 season) 2023 INFLUENZA VACCINE (#1) 2023 AAA SCREENING Completed 02/04/2024 HEPATITIS B VACCINE Aged Out No longe r eligible based on patient's age to complete this topic HIB VACCINE Aged Out No longer eligi ble based on patient's age to complete this topic HPV VACCINE Aged Out No longer eligi ble based on patient's age to complete this topic MENINGOCOCCAL VACCINE Aged Out No elena umer eligible based on patient's age to complete this topic Goals Goal Patient Goal Type Associated Problems Recent Progress Patient-Stated? Author Patient will adhere to medication regimen General On track( 023 8:59 AM CDT) Dari Gardner RN Medical Devices Implanted Type Area Occupational Psychologist Device Identifier Shelf Expiration Date Model / Serial / Lot Sphr Embl Ylw Hydropearl 200um Ricky Pg Implanted:Qty: 1 on 08/02/2022 by Calvin Loving MD at [facility] Arterial [employer] 06/13/2025 [id number] / / [id number] Patch Cv 6x1cm Vsgrd Bvn Pricrd Strl Implanted:Qty: 1 on 11/26/2023 by Herminia Howe MD at [facility] Left: Carotid [employer] [id number] / / Procedures Procedure Name Priority Date/Time Associated Diagnosis Comments US AAA SCREENING Routine 02/04/2024 2:54 PM CDT Pulsatile abdomen VAS CAROTID DUPLEX BILATERAL Routine 02/04/2024 1:49 PM CDT Carotid stenosis, asymptomatic, left from Last 3 Months Results * US AAA Screening (02/04/2024 2:54 PM CDT) Anatomical Region Laterality Modality Abdomen Ultrasound 02/04/2024 3:28 PM CDT Impressions 02/04/2024 6:06 PM CDT IMPRESSION: 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 > Dictated by Humza Chappell MD > Dictated by Humza Chappell MD (Mine Supervisor) 02/04/2024 3:28 PM IAgustin MD have personally reviewed and interpreted this examination/study. > Interpreting Provider: Agustin Noriega MD on 02/04/2024 6:06 PM Narrative 02/04/2024 6:06 PM CDT PROCEDURE: ??US AAA SCREENING, DATE/TIME OF EXAM: ??02/04/2024 2:54 PM, LOCATION ??[facility] INDICATION: R19.8: Pulsatile abdomen ADDITIONAL CLINICAL INFORMATION: [...] DATE/TIME OF EXAM: 02/04/2024 2:54 PM, LOCATION [facility] INDICATION: R19.8: Pulsatile abdomen ADDITIONAL CLINICAL INFORMATION: [...] MD > Dictated by Humza Chappell MD (Mine Supervisor) 02/04/2024 3:28 PM IAgustin MD have personally reviewed and interpreted this examination/study. > Interpreting Provider: Agustin Noriega MD on 02/04/2024 6:06 PM Viola Browne BOWLING ALLEY MECHANIC-PHYSICAL OPTICS TEACHER US ORDERABLES * VAS Carotid Duplex Bilateral (02/04/2024 1:49 PM CDT) Anatomical Region Laterality Modality Neck Intravascular Ul trasound 02/04/2024 1:22 PM CDT Narrative Procedure Note Jabari Williamson MD - 02/04/2024 Viola Browne BOWLING ALLEY MECHANIC-PHYSICAL OPTICS TEACHER VASCULAR LAB O RDERABLES from Last 3 Months Advance Directives * Full Code (Latest Code Status on File) Date Activated Date Inactivated Comments 11/26/2023 11:14 AM 11/27/2023 2:50 PM Care Teams Screwmaker Automatic Relationship Specialty Start Date End Date Fabiano Mosley MD PCP - General 12/06/18
--- OUTSIDE RECORDS SUMMARY | 2024-04-12 09:01 | XMS_ITS | Patient Health Summary ---
Author Organization [facility] Address [address] [place] [address] Care Team Providers Care Senior Mechanical Project Manager Name Role Phone Fabiano Mosley MD Primary Care Provider [phone] [facility],non-owned Affiliates and Associated Physician Practices is amultiple site organization consisting of ambulatory clinics and hospital sitesin [place], [place], [place] and [place]. This disclosure is being madepursuant to the Care Everywhere program and may not contain all information available regarding this patient. Last updated 18.[facility] Allergies No known active allergies Medications * Be aware that medications may not be up to date on this document. Alwaysverify current medications with the patient. * SUMAtriptan (Imitrex) 50 MG tablet(Started 11/05/2023) TAKE 1 TABLET BY MOUTH FOR HEADACHE IF NO RELIEF REPEAT 1 TAB AFTER AT LEAST 2 HOURS, MAX 4 TABLETSPER DAY * atorvastatin (Lipitor) 40 MG tablet(Started 10/31/2023) Take 1 (one) tablet by mouth once daily * aspirin (Aspirin) 81 MG chew tablet Take 1 (one) tablet by mouth once daily * zvwtyeu-zjklsfpzbsmqd-csmrdwxo 250-250-65 MG tablet Take 1 (one) tablet by mouth every 4 hours as needed for Headache * ibuprofen (Motrin) 200 MG tablet Take 1 (one) tablet by mouth as needed for Pain * multivitamin daily tablet Take 1 (one) tablet by mouth daily with food * amLODIPine-benazepril (Lotrel) 5-20 MG capsule(Started 12/19/2023) Take 1 (one) capsule by mouth once daily * cyclobenzaprine (Flexeril) 5 MG tablet(Started 12/19/2023) Take 1 (one) tablet by mouth 3 times daily as needed FOR MUSCLE SPASM Active Problems Problem Noted Date Diagnosed Date Carotid stenosis, asymptomatic, left 11/26/2023 Heart palpitations 12/10/2018 Chronic prostatitis 12/28/2017 Fibrosis, lung 11/27/2017 Lung nodule, solitary 11/05/2017 Elevated PSA 10/25/2017 Benign prostatic hyperplasia with urinary obstru ction 10/11/2017 Erectile dysfunction 10/11/2017 Fatigue 10/11/2017 Dysuria 10/11/2017 Social History Tobacco Use Types Packs/Day Years [...] and heating? Not hard at all 11/26/2023 [facility] [place] of Occupat ional Health - Occupational Stress [...] place to sleep or slept in a detention (including now)? No 11/26/2023 Sex and Gender [...] Mass Index 22.03 02/06/2024 9:02 AM CDT Medical Devices Implanted Type Area Supervisor Compounding And Finishing Device Identifier Shelf Expiration Date Model / Serial / Lot Sphr Embl Ylw Hydropearl 200um Dm Pg Implanted:Qty: 1 on 08/02/2022 by Calvin Loving MD at [facility] Arterial [employer] 06/13/2025 [id number] / / [id number] Patch Cv 6x1cm Vsgrd Bvn Pricrd Strl Implanted:Qty: 1 on 11/26/2023 by Herminia Howe MD at [facility] Left: Carotid [employer] [id number] / / Procedures * US AAA SCREENING(Performed 02/04/2024) Performed for Pulsatile abdomen * VAS CAROTID DUPLEX BILATERAL(Performed 02/04/2024) Performed for Carotid stenosis, asymptomatic, left * CBC W AUTO DIFFERENTIAL(Performed 11/27/2023) Performed for Carotid stenosis, asymptomatic, left * BASIC METABOLIC PANEL (CALCIUM TOTAL)(Performed 11/27/2023) Performed for Carotid stenosis, asymptomatic, left * PHOSPHORUS BLOOD(Performed 11/26/2023) Performed for Carotid stenosis, asymptomatic, left * MAGNESIUM BLOOD(Performed 11/26/2023) Performed for Carotid stenosis, asymptomatic, left * CBC W/O DIFFERENTIAL(Performed 11/26/2023) Performed for Carotid stenosis, asymptomatic, left * BASIC METABOLIC PANEL (CALCIUM TOTAL)(Performed 11/26/2023) Performed for Carotid stenosis, asymptomatic, left * ACT LR - POCT ([facility])(Performed 11/26/2023) * PATHOLOGY TISSUE(Performed 11/26/2023) Performed for Stenosis of left carotid artery without cerebral infarction * ACT LR - POCT ([facility])(Performed 11/26/2023) * BLOOD GAS+COOX+LYTES+METAB ARTERIAL POCT(Performed 11/26/2023) * ACT LR - POCT ([facility])(Performed 11/26/2023) * ENDOTRACHEAL TUBE NOTE(Performed 11/26/2023) * PERIPHERAL IV NOTE(Performed 11/26/2023) * ARTERIAL LINE NOTE(Performed 11/26/2023) * ACT LR - POCT ([facility])(Performed 11/26/2023) * GA TEAEC W/PATCH GRF CRTD VRT SUBCLA NCK INC(Performed 11/26/2023) Performed for Stenosis of left carotid artery without cerebral infarction * TYPE + SCREEN PANEL(Performed 11/26/2023) Performed for Stenosis of left carotid artery * TYPE + SCREEN PANEL(Performed 11/23/2023) Performed for Stenosis of left carotid artery * BASIC METABOLIC PANEL (CALCIUM TOTAL)(Performed 11/23/2023) Performed for Stenosis of left carotid artery * CBC W/O DIFFERENTIAL(Performed 11/23/2023) Performed for Stenosis of left carotid artery * PT-INR [facility](Performed 11/23/2023) Performed for Stenosis of left carotid artery * PTT [facility](Performed 11/23/2023) Performed for Stenosis of left carotid artery * EKG 12-LEAD(Performed 11/23/2023) Performed for Preop testing * VAS CAROTID DUPLEX BILATERAL(Performed 11/19/2023) Performed for Bilateral carotid artery stenosis * IR EMBOLIZATION TRANSCATH THPY(Performed 08/02/2022) Performed for Benign prostatic hyperplasia with urinary obstruction * PT-INR [facility](Performed 08/02/2022) Performed for Benign prostatic hyperplasia with urinary obstruction, Chronic prostatitis, Other specified disorders of kidney and ureter * CBC W AUTO DIFFERENTIAL(Performed 08/02/2022) Performed for Benign prostatic hyperplasia with urinary obstruction, Chronic prostatitis * BASIC METABOLIC PANEL (CALCIUM TOTAL)(Performed 08/02/2022) Performed for Benign prostatic hyperplasia with urinary obstruction, Chronic prostatitis * URINALYSIS REFLEX TO MICROSCOPIC NO CULTURE(Performed 08/02/2022) Performed for Benign prostatic hyperplasia with urinary obstruction, Chronic prostatitis * CT ANGIO PROSTATE(Performed 07/03/2022) Performed for Benign prostatic hyperplasia with lower urinary tract symptoms, symptom details unspecified * CREATININE - POCT INTERFACED(Performed 07/03/2022) * URINALYSIS AUTO - POINT OF CARE (AMB) [facility](Performed 06/09/2022) Performed for Enlarged prostate * GA MSR PVR U&/BLADD CAPCTY US NON(Performed 06/09/2022) Performed for Enlarged prostate * GA MSR PVR U&/BLADD CAPCTY US NON(Performed 02/10/2022) Performed for Enlarged prostate * URINALYSIS AUTO - POINT OF CARE (AMB) [facility](Performed 02/10/2022) Performed for Enlarged prostate * URINALYSIS AUTO - POINT OF CARE (AMB) [facility](Performed 2020) Performed for Benign prostatic hyperplasia with lower urinary tract symptoms, symptom details unspecified * GA MSR PVR U&/BLADD CAPCTY US NON(Performed 06/05/2019) Performed for Enlarged prostate with urinary retention * GA URINE FLOW MEASUREMENT(Performed 06/05/2019) Performed for Enlarged prostate with urinary retention * GA ELECTRO-UROFLOWMETRY, FIRST(Performed 06/05/2019) Performed for Enlarged prostate with urinary retention * GA MSR PVR U&/BLADD CAPCTY US NON(Performed 03/10/2019) Performed for BPH with obstruction/lower urinary tract symptoms * GA ECHO,TRANSRECTAL(Performed 02/10/2019) Performed for Benign prostatic hyperplasia with lower urinary tract symptoms, symptom details unspecified * GA TRURL DSTRJ PRST8 TISS RF WV(Performed 02/10/2019) Performed for Benign prostatic hyperplasia with lower urinary tract symptoms, symptom details unspecified * URINALYSIS AUTO - POINT OF CARE (AMB) [facility](Performed 02/10/2019) Performed for Benign prostatic hyperplasia with lower urinary tract symptoms, symptom details unspecified * MRI PELVIS RECTAL PROTOCOL WWO CONT(Performed 01/08/2019) Performed for Elevated PSA * CULTURE URINE(Performed 12/10/2018) Performed for Lower urinary tract symptoms (LUTS) * URINALYSIS AUTO - POINT OF CARE (AMB) [facility](Performed 12/10/2018) Performed for Lower urinary tract symptoms (LUTS) Results * US AAA Screening (02/04/2024 2:54 PM CDT) Anatomical Region Laterality Modality Abdomen Ultrasound 02/04/2024 3:28 PM CDT Impressions 02/04/2024 6:06 PM CDT IMPRESSION: 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 > Dictated by Humza Chappell MD > Dictated by Humza Chappell MD (Laser Set Up Operator) 02/04/2024 3:28 PM IAgustin MD have personally reviewed and interpreted this examination/study. > Interpreting Provider: Agustin Noriega MD on 02/04/2024 6:06 PM Narrative 02/04/2024 6:06 PM CDT PROCEDURE: ??US AAA SCREENING, DATE/TIME OF EXAM: ??02/04/2024 2:54 PM, LOCATION ??[facility] INDICATION: R19.8: Pulsatile abdomen ADDITIONAL [...] DATE/TIME OF EXAM: 02/04/2024 2:54 PM, LOCATION [facility] INDICATION: R19.8: Pulsatile abdomen ADDITIONAL [...] MD > Dictated by Humza Chappell MD (Laser Set Up Operator) 02/04/2024 3:28 PM IAgustin MD have personally reviewed and interpreted this examination/study. > Interpreting Provider: Agustin Noriega MD on 02/04/2024 6:06 PM Viola Browne APRN-PEANUT GRADER US ORDERABLES * VAS Carotid Duplex Bilateral (02/04/2024 1:49 PM CDT) Only the most recent of2 resultswithin the time period is included. Anatomical Region Laterality Modality Neck Intravascular Ul trasound 02/04/2024 1:22 PM CDT Narrative Procedure Note Jabari Williamson MD - 02/04/2024 Viola Browne APRN-PEANUT GRADER VASCULAR LAB O RDERABLES * (ABNORMAL) CBC W AUTO DIFFERENTIAL (11/27/2023 7:16 AM CDT) Only the most recent of2 resultswithin the time period is included. WBC 10.2 4.0 - 10.7 x10E9/L 11/27/2023 7:45 AM [facility] RBC Count 3.41(L) 4.30 - 5.80 x10E12/L 11/27/2023 7:45 AM [facility] Hemoglobin 11.2(L) 13.3 - 17.5 g/dL 11/27/2023 7:45 AM [facility] Hematocrit 31.7(L) 38.7 - 51.1 % 11/27/2023 7:45 AM [facility] MCV 93.0 80.0 - 98.0 fL 11/27/2023 7:45 AM [facility] MCH 32.8 26.7 - 33.6 pg 11/27/2023 7:45 AM [facility] MCHC 35.3 31.7 - 36.3 g/dL 11/27/2023 7:45 AM [facility] RDW-CV 12.5 11.3 - 14.8 % 11/27/2023 7:45 AM [facility] Platelet Count 170 150 - 420 x10E9/L 11/27/2023 7:45 AM [facility] MPV 11.8(H) 7.8 - 11.4 fL 11/27/2023 7:45 AM [facility] Neutrophil % 66.7 41.0 - 74.0 % 11/27/2023 7:45 AM [facility] Lymphocyte % 24.3 17.0 - 47.0 % 11/27/2023 7:45 AM [facility] Monocyte % 6.7 3.0 - 11.0 % 11/27/2023 7:45 AM [facility] Eosinophil % 1.4 0.0 - 7.0 % 11/27/2023 7:45 AM [facility] Basophil % 0.6 0.0 - 1.6 % 11/27/2023 7:45 AM [facility] Immature Granulocytes % 0.3 0.0 - 1.0 % 11/27/2023 7:45 AM [facility] Neutrophil Absolute 6.83 1.60 - 7.50 x10E9/L 11/27/2023 7:45 AM [facility] Lymphocyte Absolute 2.48 1.00 - 4.40 x10E9/L 11/27/2023 7:45 AM [facility] Monocyte Absolute 0.68 0.15 - 1.00 x10E9/L 11/27/2023 7:45 AM [facility] Eosinophil Absolute 0.14 0.00 - 0.60 x10E9/L 11/27/2023 7:45 AM [facility] Basophil Absolute 0.06 0.00 - 0.13 x10E9/L 11/27/2023 7:45 AM [facility] Blood BLOOD SPECIMEN / Unknown Venipuncture / Unknown 11/27/2023 7:16 AM CDT 11/27/2023 7:19 AM CDT Derrick Bush MD LAB - HEMATOLOGY ORD ERABLES [facility] [address] [place] [phone], [facility] [phone] * (ABNORMAL) BASIC METABOLIC PANEL (CALCIUM TOTAL) (11/27/2023 7:16 AM CDT) Only the most recent of4 resultswithin the time period is included. BUN 22 7 - 26 mg/dL 11/27/2023 7:45 AM [facility] Creatinine 1.24(H) 0.71 - 1.16 mg/dL 11/27/2023 7:45 AM [facility] Sodium 133(L) 136 - 145 mmol/L 11/27/2023 7:45 AM [facility] Potassium 3.9 3.5 - 4.5 mmol/L 11/27/2023 7:45 AM [facility] Chloride 105 98 - 107 mmol/L 11/27/2023 7:45 AM [facility] CO2 18(L) 22 - 29 mmol/L 11/27/2023 7:45 AM [facility] Glucose 126(H) 70 - 115 mg/dL 11/27/2023 7:45 AM CDT [facility] Calcium 8.7 8.4 - 10.2 mg/dL 11/27/2023 7:45 AM [facility] Anion Gap 10 6 - 16 11/27/2023 7:45 AM [facility] BUN/Creatinine Ratio 18 7 - 23 11/27/2023 7:45 AM [facility] Osmolality Calculated 281 275 - 295 mOsm/kg 11/27/2023 7:45 AM [facility] eGFR by CKD-EPI 62(L) >=90 mL/min/1.7 3 m2 11/27/2023 7:45 AM [facility] Blood BLOOD SPECIMEN / Unknown Venipuncture / Unknown 11/27/2023 7:16 AM CDT 11/27/2023 7:19 AM T Derrick Bush MD LAB - CHEMISTRY DIPTI [facility] Organization Address City/State/ZIP Co de Phone Number [address] [address], [facility] [phone] * (ABNORMAL) CBC W/O DIFFERENTIAL (11/26/2023 9:20 PM CDT) Only the most recent of2 resultswithin the time period is included. WBC 9.0 4.0 - 10.7 x10E9/L 11/26/2023 9:42 PM [facility] RBC Count 3.39(L) 4.30 - 5.80 x10E12/L 11/26/2023 9:42 PM [facility] Hemoglobin 11.1(L) 13.3 - 17.5 g/dL 11/26/2023 9:42 PM [facility] Hematocrit 31.5(L) 38.7 - 51.1 % 11/26/2023 9:42 PM [facility] MCV 92.9 80.0 - 98.0 fL 11/26/2023 9:42 PM [facility] MCH 32.7 26.7 - 33.6 pg 11/26/2023 9:42 PM [facility] MCHC 35.2 31.7 - 36.3 g/dL 11/26/2023 9:42 PM CDT [facility] RDW-CV 12.3 11.3 - 14.8 % 11/26/2023 9:42 PM CDT [facility] Platelet Count 166 150 - 420 x10E9/L 11/26/2023 9:42 PM CDT [facility] MPV 11.5(H) 7.8 - 11.4 fL 11/26/2023 9:42 PM CDT [facility] Blood BLOOD SPECIMEN / Unknown Venipuncture / Unknown 11/26/2023 9:20 PM CDT 11/26/2023 9:26 PM CDT Derrick Bush MD LAB - HEMATOLOGY ORD ROYAL [facility] [address] [place] [address], [place] [phone] * PHOSPHORUS BLOOD (11/26/2023 9:20 PM CDT) Phosphorus 4.0 2.8 - 5.1 mg/dL 11/26/2023 9:58 PM CDT [facility] Blood BLOOD SPECIMEN / Unknown Venipuncture / Unknown 11/26/2023 9:20 PM CDT 11/26/2023 9:26 PM CDT Derrick Bush MD LAB - CHEMISTRY DIPTI SCHMITT [facility] [address] [place] [address], [place] [phone] * MAGNESIUM BLOOD (11/26/2023 9:20 PM CDT) Magnesium 1.8 1.6 - 2.6 mg/dL 11/26/2023 9:58 PM CDT [facility] Blood BLOOD SPECIMEN / Unknown Venipuncture / Unknown 11/26/2023 9:20 PM CDT 11/26/2023 9:26 PM CDT Derrick Bush MD LAB - CHEMISTRY ORDE RABLES [facility] [address] [place] [address], [facility] [phone] * ACT LR - POCT ([facility]) (11/26/2023 10:49 AM CDT) Only the most recent of4 resultswithin the time period is included. ACT LR 243 See result comments sec 11/28/2023 7:33 AM CDT [facility] Blood BLOOD SPECIMEN / Unknown 11/26/2023 10:49 AM CDT 11/28/2023 7:33 AM CDT Narrative [facility] - 11/28/2023 7:33 AM CDT ACT-LR Therapeutics ranges are: Cardiac roofing laborer = 200-300 seconds Sheath pull = ACT less than 170 seconds EPS lab = 200-240 seconds Sheath pull = ACT less than 140 seconds Radiology : CT/Angio lab = 200-300 seconds Sheath pull = ACT less than 200 seconds Expected range of normal volunteers: ACT-LR = 113-149 seconds Expected range of a Non-heparin patients: ACT-LR = 89-169 seconds From established ranges from the company manual Herminia Howe MD LAB - COAGULATION O RDERABLES Performing Organization Address [facility] de Phone Number [facility] [address] [place] [address], [facility] [phone] * PATHOLOGY TISSUE (11/26/2023 8:57 AM CDT) Case Report Surgical Pathology Report ? Case: [id number] ? Authorizing Provider: ??Herminia Howe MD ? Collected: ? 11/26/2023 08:57 AM ? Ordering Location: ? [facility] ?Received: ?11/26/2023 11:16 AM ? Pathologist: ? Juana Anne MD ? Specimen: ?Carotid Artery, Left Carotid Plaque ? 11/28/2023 4:11 PM [facility] Final Diagnosis Carotid artery plaque, left, endarterectomy: - Calcific atherosclerosis with organized thrombus 11/28/2023 4:11 PM [facility] Microscopic Description and Comment Microscopic examination substantiates the above captioned diagnosis. 11/28/2023 4:11 PM [facility] Clinical History Left carotid artery stenosis 11/28/2023 4:11 PM [facility] Gross Description The requisition and specimen(s) are identified with the patient's name Cruz Carreon . Received in formalin, specimen A , and consists of three portions of marcelino-yellow irregular rubbery tissue ranging from 0.8 to 2.2 cm in greatest dimension which are step sectioned. The cut surfaces show marcelino-yellow to marcelino-brown laminated rubbery tissue without calcification. Driller Helper sections are submitted in a single cassette labeled A1. RB 11/28/2023 4:11 PM [facility] Pathologist Location at [facility] 11/28/2023 4:11 PM [facility] Disclaimer The performance characteristics of all immunohistochemical and indirect immunofluorescence stains (if any) cited in this report were determined by the Histopathology Laboratory of [facility]. Some of these tests were developed by our own laboratory and have not been cleared or approved by the US Food and Drug Administration. The FDA does not require this test to go through premarket FDA review. These tests are used for clinical purposes. They should not be regarded as investigational or for research. This laboratory is certified under the Clinical Laboratory Improvement Amendments (CLIA) as qualified to perform high complexity clinical laboratory testing. This case has been personally reviewed and interpreted by the attending (teaching) pathologist. 11/28/2023 4:11 PM CDT [facility] Embedded Images 11/28/2023 4:11 PM T [facility] Biopsy, Excision CAROTID ARTERY STRUCTURE / Unknown 11/26/2023 8:57 AM CDT 11/26/2023 11:16 AM CDT Comment:Pre-op diagnosis: STENOSIS OF LEFT CAROTID ARTERY WITHOUT CEREBRAL INFARCTION [I65.22] Herminia Howe MD LAB - PATHOLOGY/CYT OLOGY ORDERABLES [facility] [address] [phone] * (ABNORMAL) BLOOD GAS+COOX+LYTES+METAB ARTERIAL POCT (11/26/2023 8:27 AM CDT) pH Arterial 7.33(L) 7.35 - 7.45 pH 11/26/2023 8:27 AM [facility] pO2 Arterial 241(H) 80 - 100 mmHg 11/26/2023 8:27 AM [facility] pCO2 Arterial 43 35 - 45 mmHg 8:27 AM [facility] HCO3 Arterial 22.7 20.0 - 30.0 mmol/L 11/26/2023 8:27 AM [facility] BE Arterial -3.2(L) -2.0 - 2.0 mmol/L 11/26/2023 8:27 AM [facility] Oxyhemoglobin Arterial 96.4 % 11/26/2023 8:27 AM [facility] Dexoyhemoglobin (HHB) % <1.0 % 11/26/2023 8:27 AM [facility] Methemoglobin 1.2 0.0 - 2.0 % 11/26/2023 8:27 AM [facility] Carboxyhemoglobin 1.8 0.0 - 2.0 % 2023 8:27 AM [facility] Comment:Carboxyhemoglobin No rmal Concentration: Non-smokers: 0-2%; Smokers: 0- 9%; Toxic: >20% O2 Content Arterial 17.0 Interpret within clinical context ml/dL 11/26/2023 8:27 AM [facility] Hemoglobin by COOX 12.1 12.0 - 17.6 g/dL 11/26/2023 8:27 AM [facility] O2 Saturation Arterial 99 90 - 100 % 11/26/2023 8:27 AM [facility] Sodium Whole Blood 134(L) 135 - 145 mmol/L 11/26/2023 8:27 AM [facility] Potassium Whole Blood 4.0 3.5 - 5.5 mmol/L 11/26/2023 8:27 AM [facility] Chloride WB 105 78 - 107 mmol/L 11/26/2023 8:27 AM [facility] Calcium Ionized 1.19 mmol/L 8:27 AM [facility] Ionized Calcium pH Adjusted 1.16(L) 1.19 - 1.34 mmol/L 11/26/2023 8:27 AM [facility] Anion Gap (AG) Arterial 6 6 - 16 mmol/L 11/26/2023 8:27 AM [facility] Glucose WB 91 70 - 115 mg/dL 11/26/2023 8:27 AM [facility] Lactic Acid Whole Blood 0.7 <=2.0 mmol/L 11/26/2023 8:27 AM [facility] Blood, arterial ARTERIAL BLOOD SPECIMEN / Unknown 11/26/2023 8:27 AM CDT 11/26/2023 8:28 AM CDT Herminia Howe MD LAB - POINT OF CARE ORDERABLES [facility] [address] [place] [address], [facility] [phone] * ETT LINE PERFORMABLE (11/26/2023 7:48 AM CDT) Narrative Christofer Fairchild DO - 11/26/2023 7:48 AM CDT Christofer Fairchild DO ? 11/26/2023 ??7:48 AM Endotracheal Tube Placement: ? Patient Location: OR. Procedure: intubation (07189) Procedure Section: ?? Sedation: IV sedation. Indications for Airway Management: ??airway protection Induction: standard IV Patient Position: ??sniffing Mask Ventilation: easy. Blade Type: Shanell Blade Size: 4 Laryngoscopy View: grade 1 (full cords) Intubation Adjuncts: stylet Tube: endotracheal tube Placement: oral Tube type: cuff - inflated Tube Size (MM): 8 Depth of Insertion (CM): 22 Measured From: lips Cuff Inflated With: air Number of Attempts: 1. Placement Verified By: direct visualization, bilateral breath sounds, chest auscultation and CO2 monitor CXR Findings: ETT in proper place. Dentition unchanged? ??Yes Difficult Airway? ??No. Staff Section ? Anesthesia Provider: Alex Pathak MD ? Provider #1: Cheko Cuba MD, Performed the procedure. Alex Pathak MD GENERAL ANESTHESIA O RDERABLES * IV PLACEMENT PERFORMABLE (11/26/2023 7:47 AM CDT) Narrative Christofer Fairchild DO - 11/26/2023 7:47 AM CDT Christofer Fairchild DO ? 11/26/2023 ??7:47 AM Peripheral IV Line Placement: Procedure: IV start (39268) Procedure Section: ?? Skin Prep: Betadine. Orientation: left Location: antecubital Catheter Gauge: 16 Number of Attempts: 1. Adjuncts: ultrasound Procedure Tolerance: tolerated well. Staff Section ? Anesthesia Provider: Christofer Fairchild DO, Performed the procedure Alex Pathak MD GENERAL ANESTHESIA O RDERABLES * ARTERIAL LINE PERFORMABLE (11/26/2023 7:47 AM CDT) Narrative Christofer Fairchild DO - 11/26/2023 7:47 AM CDT Christofer Fairchild DO ? 11/26/2023 ??7:47 AM Arterial Line Placement Procedure Note Patient Location: OR. Procedure: Arterial Line ([id number]) Procedure Section ?? Indications: continuous blood pressure monitoring. Consent: informed consent was obtained for the procedure. Alternatives Discussed: ??alternative treatment Skin Prep: Chloraprep. Orientation: Left. Site: radial. Sterile Technique: cap, mask, sterile gloves and small sterile fenestrated drape. Gauge: 20. Seldinger Technique Used? ??Yes Procedure Tolerance: tolerated well. Events: none. Staff Section ? Anesthesia Provider: Alex Pathak MD, Performed the procedure ? Provider #1: Christofer Fairchild DO, Performed the procedure. Alex Pathak MD GENERAL ANESTHESIA O RDERABLES * TYPE + SCREEN PANEL (11/26/2023 6:14 AM CDT) Only the most recent of2 resultswithin the time period is included. Pathologist [facility] Antibody Screen NEG 7:13 AM CDT [facility] ABO Rh O POS 11/26/2023 7:13 AM CDT [facility] Blood Bank BLOOD SPECIMEN / Unknown Line Draw / Unknown 11/26/2023 6:14 AM CDT 11/26/2023 6:22 AM CDT Herminia Howe MD LAB - BLOOD BANK OR DERABLES Performing Organization Address [facility] Co de Phone Number [facility] [address] [place] [address], [facility] [phone] * PTT [facility] (11/23/2023 11:34 AM CDT) Pathologist [facility] APTT 33.1 23.0 - 38.4 Seconds 11/23/2023 12:39 PM CDT [facility] Comment:Suggested therapeuti c range for full dose I.V. unfractionated heparin therapy for venous thromboembolism is 71 to 109 seconds. Blood BLOOD SPECIMEN / Unknown Lab Venipuncture / Unknown 11/23/2023 11:34 AM CDT 11/23/2023 12:06 PM CDT Herminia Howe MD LAB - COAGULATION O RDERABLES Performing Organization Address City/[facility]/ZIP Co de Phone Number [address] [address], [facility] [phone] * PT-INR [facility] (11/23/2023 11:34 AM CDT) Only the most recent of2 resultswithin the time period is included. Pathologist [facility] PT 13.2 12.1 - 14.8 Seconds 11/23/2023 12:39 PM CDT [facility] INR 1.0 See Comment 11/23/2023 12:39 PM CDT [facility] [facility] Comment:The suggested therap eutic range for standard coumadin (warfarin) therapy is an INR of 2.0-3.0. For high-risk patients (Mechanical Mitral Valve Prosthesis, etc.), the suggested prophylactic therapeutic range is an INR of 2.5-3.5. Blood BLOOD SPECIMEN / Unknown Lab Venipuncture / Unknown 11/23/2023 11:34 AM CDT 11/23/2023 12:06 PM CDT Herminia Howe MD LAB - COAGULATION O RDERABLES Performing Organization Address [facility] Co de Phone Number [address] [phone], [facility] [phone] * EKG 12-LEAD (11/23/2023 9:18 AM CDT) Ventricular Rate 65 BPM [facility] MUSE Atrial Rate 65 BPM [facility] MUSE P-R Interval 176 ms [facility] MUSE QRS Duration ms 128 ms [facility] MUSE Q-T Interval ms 430 ms [facility] MUSE QTC Calculation (Bezet) 447 ms [facility] MUSE Calculated P [place] 67 degrees [facility] MUSE Calculated R [place] 82 degrees [facility] MUSE Calculated T [place] 49 degrees [facility] MUSE Interpretation EKG NORMAL SINUS RHYTHM RIGHT BUNDLE BRANCH BLOCK ABNORMAL ECG NO PREVIOUS ECGS AVAILABLE Confirmed by SRIKANTH TUCKER, GERARD ([id number]) on 11/28/2023 7:48:17 AM [facility] MUSE 11/23/2023 9:18 AM CDT 11/28/2023 7:48 AM CDT Herminia Howe MD ECG ORDERABLES [facility] MUSE * IR EMBOLIZATION TRANSCATH THPY (08/02/2022 4:54 PM CDT) Anatomical Region Laterality Modality X-Ray Angiograph y 08/18/2022 1:53 PM CDT Impressions 08/18/2022 1:57 PM CDT Impression: Successful unilateral, left prostate artery embolization, as described above. The right internal iliac artery could not be cannulated to severe stenosis at the origin. Sulci the patient in clinic in 3 months and if that is improvement he can reschedule for another attempt at right prostatic artery embolization Dr. Loving performed/was present throughout the procedure and provided the moderate sedation service. Please see the nursing sedation flowsheet. > Interpreting Provider: Calvin Loving MD on 08/18/2022 1:57 PM Narrative 08/18/2022 1:57 PM CDT PROCEDURE: ??IR EMBOLIZATION TRANSCATH THPY DATE/TIME OF EXAM: ??08/02/2022 4:55 PM CLINICAL INFORMATION: None relevant/not provided if blank. Indication: N40.1: Benign prostatic hyperplasia with urinary obstruction N13.8: Benign prostatic hyperplasia with urinary obstruction Additional History: History: Cruz Mathis a 72 year oldmalereferred for prostate artery embolization. He was seen byDr. Yip [id number] for BPH with bothersome symptoms despite tamsulosin and finasteride. Underwent Rezum treatment 01/2019. Had improvement in symptoms for some time but then had worsening of his symptoms. He cites his most bothersome symptom as nocturia, but also reports weak stream and urgency that is worsened by running water and cold weather. He was referred for PAE consideration, as he prefers a minimally invasive approach that will preserveejaculatory and sexual function. In clinic ultrasound shows a ~ 64 gm prostate, IPSS 18, QOL 5. . Patient is here for prostate artery embolization Operators: 1.Dr. Loving, Attending Physician Anesthesia: 1.Local anesthesia - 10 mL of 1% lidocaine Sedation:Versed:3mg, Fentanyl: 150mcg Sedation start time:1440hours Procedure start time:1440hours Procedure end time:1645hours Additional drugs:500mcg Nitroglycerin Contrast:130mL of Isovue-300 Fluoroscopy time:40.9 min Procedure: 1.Ultrasound-guided access of the right common femoral artery. 2.Selective catheterization of the left internal iliac artery (2nd order) and angiogram. 3.Selective catheterization of the anterior division of the left internal iliac artery (3rd order) and angiogram. 4.Selective catheterization of the left prostate artery (beyond 3rd order) and angiogram. 5.Embolization of the left prostate artery with 100-300 micron Hydropearl under fluoroscopic guidance. 6.Post-embolization angiogram of the left prostate artery. 7.Multiple attempts at Selective catheterization of the right internal iliac artery (2nd order) and angiogram. 8.Sheath angiogram of the right common femoral artery. 9.Hemostasis with Angioseal closure device. Procedure in detail: The procedure, risks, and possible complications and were explained to the patient in detail, and an informed consent was obtained. The patient was brought to the angiography suite and placed supine on the procedure table. The right groin was prepped and draped in the usual sterile fashion. A fence installer film of pelvis was obtained, which was unremarkable. The patient received intravenous Versed and Fentanyl for conscious sedation. A qualified radiology nurse monitored the patients vital signs throughout the procedure. Limited ultrasound of the right common femoral artery demonstrated a patent vessel. The take off of the profunda was identified. A powers scale image was documented. The right common femoral artery was accessed using a micro-puncture needle. The needle entry was documented. ??Following a series of exchanges, a 5.5-Syriac vascular sheath was placed. The left internal iliac artery was catheterized with a 5 Fr PPC cathter and angiogram was obtained, which demonstrated normal vascular anatomy. The anterior division of the left internal iliac artery was catheterized with a coaxially advanced 2.0 Fr Progreat microcatheter and angiogram was obtained, which demonstrated prostatic blush. The left prostate artery was selectively catheterized with the microcatheter and angiogram was obtained, which showed prostatic blush. Embolization of left prostate artery was then performed using ??200 Hydropearl under fluoroscopic guidance until satisfactory stasis was achieved. Post-embolization angiogram of the left prostate artery confirmed satisfactory stasis. ?? Using the 5 Fr PPC cathter and multiple other catheters and guidewire combinations attempts were made to access the right internal iliac artery. An angiogram was performed which showed severe stenosis of the right internal iliac artery . Multiple attempts to catheterize inferior. The procedure was terminated A sheath angiogram of the right common femoral artery was unremarkable with femoral access away from the profunda femoris. Hemostasis was achieved with Angioseal closure device. A sterile dressing was applied. The patient tolerated the procedure well and was transferred to the holding area in stable condition. There were no immediate complications associated with the procedure. Procedure Note Calvin Loving MD - 08/18/2022 PROCEDURE: IR EMBOLIZATION TRANSCATH THPY DATE/TIME OF EXAM: 08/02/2022 4:55 PM CLINICAL INFORMATION: None relevant/not provided if blank. Indication: N40.1: Benign prostatic hyperplasia with urinary obstruction N13.8: Benign prostatic hyperplasia with urinary obstruction Additional History: History: Cruz Mathis a 72 year oldmalereferred for prostateartery embolization. He was seen byDr. Yip [id number] for BPH with bothersomesymptoms despite tamsulosin and finasteride. Underwent Rezum treatment 01/2019.Had improvement in symptoms for some time but then had worsening of his symptoms. He cites his most bothersome symptom as nocturia, but also reports weak stream and urgency that is worsened by running water and cold weather.He was referred for PAE consideration, as he prefers a minimally invasive approach that will preserveejaculatory and sexual function. In clinic ultrasound shows a ~ 64 gm prostate, IPSS 18, QOL 5. . Patient is here for prostate artery embolization Operators: 1.Dr. Loving, Attending Physician Anesthesia: 1.Local anesthesia - 10 mL of 1% lidocaine Sedation:Versed:3mg, Fentanyl: 150mcg Sedation start time:1440hours Procedure start time:1440hours Procedure end time:1645hours Additional drugs:500mcg Nitroglycerin Contrast:130mL of Isovue-300 Fluoroscopy time:40.9 min Procedure: 1.Ultrasound-guided access of the right common femoral artery. 2.Selective catheterization of the left internal iliac artery (2ndorder) and angiogram. 3.Selective catheterization of the anterior division of the leftinternal iliac artery (3rd order) and angiogram. 4.Selective catheterization of the left prostate artery (beyond 3rdorder) and angiogram. 5.Embolization of the left prostate artery with 100-300 micronHydropearl under fluoroscopic guidance. 6.Post-embolization angiogram of the left prostate artery. 7.Multiple attempts at Selective catheterization of the right internal iliac artery (2nd order) and angiogram. 8.Sheath angiogram of the right common femoral artery. 9.Hemostasis with Angioseal closure device. Procedure in detail: The procedure, risks, and possible complications and were explained tothe patient in detail, and an informed consent was obtained. The patient was brought to the angiography suite and placed supine on the proceduretable. The right groin was prepped and draped in the usual sterile fashion. A fence installer film of pelvis was obtained, which was unremarkable. The patient received intravenous Versed and Fentanyl for conscious sedation. A qualified radiology nurse monitored the patients vital signs throughout the procedure. Limited ultrasound of the right common femoral artery demonstrated apatent vessel. The take off of the profunda was identified. A powers scale imagewas documented. The right common femoral artery was accessed using a micro-puncture needle. The needle entry was documented. Following aseries of exchanges, a 5.5-Syriac vascular sheath was placed. The left internal iliac artery was catheterized with a 5 Fr PPC cathterand angiogram was obtained, which demonstrated normal vascular anatomy. The anterior division of the left internal iliac artery was catheterized witha coaxially advanced 2.0 Fr Progreat microcatheter and angiogram was obtained, which demonstrated prostatic blush. The left prostate artery was selectively catheterized with the microcatheter and angiogram was obtained, which showed prostatic blush. Embolization of left prostate artery was then performed using 200 Hydropearl under fluoroscopic guidance until satisfactory stasis was achieved. Post-embolization angiogram of the left prostate arteryconfirmed satisfactory stasis. Using the 5 Fr PPC cathter and multiple other catheters and guidewire combinations attempts were made to access the right internal iliacartery. An angiogram was performed which showed severe stenosis of the right internal iliac artery . Multiple attempts to catheterize inferior. The procedure was terminated A sheath angiogram of the right common femoral artery was unremarkablewith femoral access away from the profunda femoris. Hemostasis was achievedwith Angioseal closure device. A sterile dressing was applied. The patient tolerated the procedure well and [facility]. There were no immediate complicationsassociated with the procedure. Impression: Successful unilateral, left prostate artery embolization, as described above. The right internal iliac artery could not be cannulated to severestenosis at the origin. Sulci the patient in clinic in 3 months and if that is improvement he can reschedule for another attempt at right prostaticartery embolization Dr. Loving performed/was present throughout the procedure and providedthe moderate sedation service. Please see the nursing sedation flowsheet. > Interpreting Provider: Calvin Loving MD on 08/18/2022 1:57 PM Calvin Loving MD IR ORDERABLES * (ABNORMAL) URINALYSIS REFLEX TO MICROSCOPIC NO CULTURE (08/02/2022 12:06 PM CDT) Color UA Ольга(A) Straw, Yellow 08/02/2022 12:36 PM [facility] Clarity UA Slt Cloudy(A) Clear 08/02/2022 12:36 PM [facility] Specific Laurel UA 1.011 1.005 - 1.030 08/02/2022 12:36 PM [facility] pH UA 5.0 5.0 - 8.0 pH 08/02/2022 12:36 PM [facility] Protein UA Negative Negative 08/02/2022 12:36 PM [facility] Glucose UA Negative Negative 08/02/2022 12:36 PM [facility] Ketone UA Negative Negative 08/02/2022 12:36 PM [facility] Bilirubin UA Negative Negative 08/02/2022 12:36 PM [facility] Blood UA Negative Negative 08/02/2022 12:36 PM [facility] Nitrite UA Positive(A) Negative 08/02/2022 12:36 PM [facility] Leukocyte Esterase 3+(A) Negative 08/02/2022 12:36 PM [facility] Urobilinogen UA 2.0(A) Negative mg/dL 08/02/2022 12:36 PM [facility] RBC UA 6-10(A) None Seen, 0-2, 3-5 /HPF 08/02/2022 12:36 PM CDT [facility] WBC UA >100(A) None Seen, 0-5 /HPF 08/02/2022 12:36 PM CDT [facility] Squamous Epithelial Cells UA None Seen None Seen, 0-2, 3-5 /HPF 08/02/2022 12:36 PM CDT [facility] Mucus UA 1+ /LPF 08/02/2022 12:36 PM CDT [facility] Hyaline Casts UA 3-5(A) None Seen, 0-2 /LPF 08/02/2022 12:36 PM CDT [facility] Urine URINE SPECIMEN OBTAINED BY CLEAN CATCH PROCEDURE / Unknown Collection / Unknown 08/02/2022 12:06 PM CDT 08/02/2022 12:16 PM CDT Narrative [facility] - 08/02/2022 12:36 PM CDT Roselyn Casanova ACCOUNT SERVICES REPRESENTATIVE-[employer] LAB - URINAL YSIS ORDERABLES Performing Organization Address City/State/[facility] Co de Phone Number [facility] [address] [place] [phone], [facility] [phone] * CT ANGIO PROSTATE (07/03/2022 11:19 AM CDT) Anatomical Region Laterality Modality Pelvis, Abdomen Computed Tomogra phy 07/05/2022 9:38 PM CDT Impressions 07/05/2022 10:19 PM CDT Impression: 1.Bilateral internal iliac artery anatomy as detailed above with prostatic arteries appearing to arise from the anterior divisions of the internal iliac arteries. 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 3.Partially visualized small infrarenal abdominal aortic aneurysm measuring 3.3 cm. 4.Markedly enlarged prostate as detailed above. 5.Partially visualized area of hypoenhancement along the inferior aspect of the left kidney with associated cortical thinning may represent area of scarring. > Interpreting Provider: Bernardo Hay on 07/05/2022 10:19 PM Narrative 07/05/2022 10:19 PM CDT PROCEDURE: ??CT ANGIO PROSTATE, DATE/TIME OF EXAM: ??07/03/2022 11:20 AM, LOCATION ??[facility] INDICATION: N40.1: Benign prostatic hyperplasia with lower urinary tract symptoms, symptom details unspecified ADDITIONAL CLINICAL INFORMATION: Ordering Provider Reason For Exam: ??PAE evaluation Technologist Note: Additional: COMPARISON: MRI pelvis 01/08/2019. TECHNIQUE: CT of the pelvis was performed following the uneventful administration of 100 mL of Isovue 370 intravenous contrast according to CT angiogram prostate protocol. Multiplanar reconstructions and post processed 3-D images were produced. Findings: Visualized infrarenal abdominal aorta: Partially visualized infrarenal abdominal aortic aneurysm measuring 3.3 cm. Atherosclerotic disease without significant stenosis. Atherosclerotic changes. Aortic branches: Inferior mesenteric artery: Atherosclerotic but patent without significant focal stenosis. Right common iliac artery: Atherosclerotic but patent without significant focal stenosis. Right external iliac artery: Atherosclerotic but patent without significant focal stenosis. Right common and visualized superficial femoral artery: Atherosclerotic but patent without significant focal stenosis. Left common iliac artery: Atherosclerotic but patent without significant focal stenosis. 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 Left external iliac artery: Atherosclerotic but patent without significant focal stenosis. Left common and visualized superficial femoral artery: Atherosclerotic but patent without significant focal stenosis. Right internal iliac artery: Severe stenosis at the origin (series 7 image 72, series 11 image 201). Divides into the superior gluteal artery and the common gluteal pudendal trunk more inferiorly. Several other multiple areas of atherosclerotic disease and narrowing also noted of the internal iliac artery. Prostatic artery appears to arise from the anterior division of the internal iliac artery adjacent to the takeoff of the inferior gluteal branch (series 7 image 110, series 11 image 215, series 10 image 145). Left internal iliac artery: Divides into the superior gluteal and common gluteal pudendal trunk more inferiorly. Of note, there is severe stenosis within the anterior division of the internal iliac artery immediately distal to the takeoff of the inferior gluteal branch (series 11 image 131, series 7 image 127). Prostatic artery arises within the anterior division immediately distal to this area of stenosis (series 7 image 134, series 10 image 144, series 11 image 131). Visualized kidneys: Partially visualized area of hypoenhancement along the inferior aspect of the visualized left kidney with cortical thinning likely related to scarring. Gastrointestinal: The stomach and visualized loops of large and small bowel are unremarkable. Normal appendix. Mesentery/Peritoneum/Retroperitoneum: No free intraperitoneal air. No free fluid in the abdomen or pelvis. Bladder: Thickened appearance of the urinary bladder wall with trabeculated appearance related to chronic outlet obstruction. Reproductive Organs: The prostate is markedly enlarged, measuring 6.4 cm x 5.3 cm x 6.0 cm with approximate volume of 133 cc. Bones: Bone windows demonstrate no suspicious lytic or blastic lesions. The visible osseous structures are intact. Soft tissues: Normal. Procedure Note Bernardo Hay MD - 07/05/2022 PROCEDURE: CT ANGIO PROSTATE, DATE/TIME OF EXAM: 07/03/2022 11:20 AM, LOCATION [facility] INDICATION: N40.1: Benign prostatic hyperplasia with lower urinary tract symptoms, symptom details unspecified ADDITIONAL CLINICAL INFORMATION: Ordering Provider Reason For Exam: PAE evaluation Technologist Note: Additional: COMPARISON: MRI pelvis 01/08/2019. TECHNIQUE: CT of the pelvis was performed following the uneventful administration of 100 mL of Isovue 370 intravenous contrast according toCT angiogram prostate protocol. Multiplanar reconstructions and postprocessed 3-D images were produced. Findings: Visualized infrarenal abdominal aorta: Partially visualized infrarenal abdominal aortic aneurysm measuring 3.3 cm. Atherosclerotic diseasewithout significant stenosis. Atherosclerotic changes. Aortic branches: Inferior mesenteric artery: Atherosclerotic but patent withoutsignificant focal stenosis. Right common iliac artery: Atherosclerotic but patent withoutsignificant focal stenosis. Right external iliac artery: Atherosclerotic but patent withoutsignificant focal stenosis. Right common and visualized superficial femoral artery: Atheroscleroticbut patent without significant focal stenosis. Left common iliac artery: Atherosclerotic but patent without significant focal stenosis. Of note, there is a small flap along the posterioraspect of the right common iliac artery (series 11 image 119) likelyrepresenting a small chronic dissection. Left external iliac artery: Atherosclerotic but patent withoutsignificant focal stenosis. Left common and visualized superficial femoral artery: Atheroscleroticbut patent without significant focal stenosis. Right internal iliac artery: Severe stenosis at the origin (series 7image 72, series 11 image 201). Divides into the superior gluteal artery andthe common gluteal pudendal trunk more inferiorly. Several other multipleareas of atherosclerotic disease and narrowing also noted of the internaliliac artery. Prostatic artery appears to arise from the anterior division ofthe internal iliac artery adjacent to the takeoff of the inferior gluteal branch (series 7 image 110, series 11 image 215, series 10 image 145). Left internal iliac artery: Divides into the superior gluteal and common gluteal pudendal trunk more inferiorly. Of note, there is severestenosis within the anterior division of the internal iliac artery immediately distal to the takeoff of the inferior gluteal branch (series 11 , series 7 image 127). Prostatic artery arises within the anteriordivision immediately distal to this area of stenosis (series 7 image 134, dodrid68 image 144, series 11 image 131). Visualized kidneys: Partially visualized area of hypoenhancement alongthe inferior aspect of the visualized left kidney with cortical thinninglikely related to scarring. Gastrointestinal: The stomach and visualized loops of large and small bowel areunremarkable. Normal appendix. Mesentery/Peritoneum/Retroperitoneum: No free intraperitoneal air. No free fluid in the abdomen or pelvis. Bladder: Thickened appearance of the urinary bladder wall with trabeculated appearance related to chronic outlet obstruction. Reproductive Organs: The prostate is markedly enlarged, measuring 6.4 cm x 5.3 cm x 6.0 cmwith approximate volume of 133 cc. Bones: Bone windows demonstrate no suspicious lytic or blastic lesions. The visible osseous structures are intact. Soft tissues: Normal. Impression: 1.Bilateral internal iliac artery anatomy as detailed above withprostatic arteries appearing to arise from the anterior divisions of the internal iliac arteries. 2.Severe atherosclerotic disease throughout both internal iliac arteries with severe stenosis of the origin of the right internal iliac arteryand severe stenosis within the anterior division of the left internal iliac artery immediately distal to the takeoff of the inferior gluteal branch. 3.Partially visualized small infrarenal abdominal aortic aneurysmmeasuring 3.3 cm. 4.Markedly enlarged prostate as detailed above. 5.Partially visualized area of hypoenhancement along the inferior aspectof the left kidney with associated cortical thinning may represent area of scarring. > Interpreting Provider: Bernardo Hay on 07/05/2022 10:19 PM Klarissa Garcia ACCOUNT SERVICES REPRESENTATIVE-[employer]AN[employer] CT ORDERABLES * (ABNORMAL) CREATININE - POCT INTERFACED (07/03/2022 11:04 AM CDT) Creatinine POCT 1.30 0.30 - 1.30 mg/dL 07/03/2022 11:29 AM CDT [facility] Comment:CT range acceptable eGFR 59(L) >90 mL/min/1.7 3 m2 07/03/2022 11:29 AM CDT [facility] Blood BLOOD SPECIMEN / Unknown 07/03/2022 11:04 AM CDT 07/03/2022 11:29 AM CDT Klarissa Garcia ACCOUNT SERVICES REPRESENTATIVE-[employer] LAB - POINT OF C ARE ORDERABLES [facility] [address] [place] [phone], [facility] [phone] * URINALYSIS AUTO - POINT OF CARE (AMB) [facility] (06/09/2022 9:51 AM [employer] SALES REPRESENTATIVE) Only the most recent of5 resultswithin the time period is included. Glucose UA neg Bilirubin UA POCT neg Ketones UA POCT neg Specific Laurel UA 1.025 Blood Urine POCT neg pH UA 6.0 Protein UA neg Urobilinogen UA neg Nitrite UA neg WBC UA neg Urine URINE / Unknown 06/09/2022 9 :51 AM [employer] SAL[employer] REPRESENTATIVE Arron Herminio Anne MD LAB - POINT OF CARE ORDERABLES * GA MSR PVR U&/BLADD CAPCTY US NON (06/09/2022 9:49 AM [employer] SAL[employer] REPRESENTATIVE) Narrative Annika Webster, AVI - 06/09/2022 9:49 AM [employer] SAL[employer] REPRESENTATIVE Annika Webster, RN ? 06/13/2022 ??9:38 AM PVR= 49mL Arron Anne MD PROCEDURE/MINOR SONDRA GICAL ORDERABLES * GA MSR PVR U&/BLADD CAPCTY US NON (02/10/2022 11:42 AM CDT) Narrative Nancie Corcoran - 02/10/2022 11:42 AM CDT Nancie Corcoran ? 02/15/2022 10:32 AM Bladder Scan results where 58mL. Arron Anne MD PROCEDURE/MINOR SONDRA GICAL ORDERABLES * GA MSR PVR U&/BLADD CAPCTY US NON (06/05/2019 2:27 PM [employer] SAL[employer] REPRESENTATIVE) Narrative Bella Florentino - 06/05/2019 2:27 PM [employer] SALES REPRESENTATIVE Bella Florentino ? 06/05/2019 ??2:27 PM 0ml Ilda Yip DO PROCEDURE/MINOR RUGGIERO RGICAL ORDERABLES * GA ELECTRO-UROFLOWMETRY, FIRST, GA URINE FLOW MEASUREMENT (06/05/2019 1:52 PM [employer] SALES REPRESENTATIVE) Narrative Bella Florentino - 06/05/2019 1:52 PM [employer] SALES REPRESENTATIVE Bella Florentino ? 06/05/2019 ??1:54 PM Voiding Time: ?? 18.5s Flow Time: ?? 3.5s Time To Max Flow: ??5.9s Max Flow Rate : ??12.1ml Average Flow Rate: ??15.5ml Voided: ?? 91ml Ilda Yip DO PROCEDURE/MINOR RUGGIERO RGICAL ORDERABLES * GA MSR PVR U&/BLADD CAPCTY US NON (03/10/2019 3:25 PM [employer] SALES REPRESENTATIVE) Narrative Ilda Yip DO - 03/10/2019 3:25 PM [employer] SALES REPRESENTATIVE Ilda Yip, DO ? 03/10/2019 ??3:28 PM 57cc Ilda Yip DO PROCEDURE/MINOR RUGGIERO RGICAL ORDERABLES * GA TRURL DSTRJ PRST8 TISS RF WV, GA ECHO,TRANSRECTAL (02/10/2019 1:43 PM CDT) Ilda Nixon DO - 02/10/2019 1:43 PM CDT Ilda Yip, DO ? 02/10/2019 ??2:13 PM DATE OF SERVICE: 02/10/2019 PREOP DIAGNOSIS: Benign prostatic hyperplasia with lower urinary tract symptoms- N40.1 POSTOP DIAGNOSIS: Same PROCEDURE: 10100- transurethral destruction of prostate tissue with radiofrequency water vapor thermal therapy-code specific to jacques, Transrectal ultrasound of the prostate CPT 62113 ANESTHESIA: local lidocaine prostate block, transurethral lidocaine urojet SURGEON: Ilda Yip DO RESIDENT: MD Marco Antonio FINDINGS: trilobar enlargement and obstruction of the prostatic urethra. ??Friable prostate with bullous edema at the apex on the right. ??SHAWNEE >60g, no nodules, nontender. EBL:2cc SPECIMENS: None DRAINS: None COMPLICATIONS: None SPONGE AND INSTRUMENT COUNT: Counted and correct INDICATIONS FOR PROCEDURE: 68yo male have BPH with LUTS. AUASS:5, 5, 5, 5, 5, 4, 4 = 34 with QOL 6, terrible. ??The patient understands the material risks, possible benefits, and alternatives for symptomatic Benign Prostate Hypertrophy. The Patient understands that BLADDER FUNCTION is independent of this de-obstructing procedure. Improved voiding results may take 30-90 days before being noticed depending on prostate size and number of treatments. Bleeding, infection and irritative voiding are the most common side effects. Patients will continue to use their current BPH meds until advised to taper or stop. The patient was given the opportunity to have their questions answered in a previous face to face meeting and also today. Informed consent signed by patient. Patient medications and allergies have been reviewed prior to treatment. Patients on blood thinners or aspirin (ASA) have been advised to check with the prescribing MD if it is ok to hold these prior to treatment. Risks of withholding blood thinners and or ASA have been discussed. DESCRIPTION OF PROCEDURE: Transrectal Ultrasound of Prostate Started Antibiotic 12 hrs PRIOR to treatment: Ciprofloxacin. Prior to proceeding, transrectal ultrasound obtained prostate volume and dimensions. TRUS prostate measurements: Width: 55mm Height: 49mm Length: 61mm Volume: 85 grams Reanna-prostatic block anesthesia was then performed using trans-rectal ultrasound guidance and a long 18-guage spinal needle. 10 cc? s of 1% lidocaine was injected bilaterally. Blood loss was less than 1cc. DESCRIPTION OF PROCEDURE: Transurethral destruction of prostate tissue; by radiofrequency thermotherapy. In the lithotomy position, under local anesthesia, the patient was prepped and draped in the usual manner. The anterior urethra, prostate, bladder neck, right and left orifices were visualized as the scope was passed. RF was then used to create thermal energy to selectively ablate prostate tissue 1cm from the bladder neck to the proximal end of the veru spaced 1cm apart. Seven treatments were given. Treatments: RLL 3, LLL 3, ML 0, CZ 1. Blood loss was less than 5cc? s. The patient was monitored throughout the procedure. At the completion of the procedure the treatment device was removed. There was a careful check that there were no clots in the bladder or injury to the bladder, prostate or urethra. DISPOSITION: The patient was observed, appeared stable and in good condition at the time of discharge. Post-procedure expectations and activity limitations were reviewed with him and written instructions were provided. The patient is going home with a catheter, therefore catheter care was reviewed and written post-op instructions were provided. He will remove the catheter at home on night. He was also instructed to continue mild oral analgesia PRN to continue his prophylactic short course of antibiotics until they are gone. The patient will be in touch in the interim, if there are any more immediate concerns. Ilda Yip DO 02/10/2019 1:43 PM Ilda Yip DO PROCEDURE/MINOR RUGGIERO RGICAL ORDERABLES * MRI PELVIS MALE WWO CONTRAST (01/08/2019 8:15 AM CDT) Anatomical Region Laterality Modality Pelvis Magnetic Resonan ce 01/08/2019 9:10 AM CDT Impressions 01/08/2019 9:36 AM CDT IMPRESSION: 1. Prostatic hyperplasia (PI-RADS 2). No focal lesion concerning for prostate cancer is identified. Dictated by Noble Torres MD (radiology receptionist). I, Dr. JAIME YEH M.D. have personally reviewed and interpreted this examination/study. This report was electronically signed by JAIME YEH M.D. ??on 01/08/2019 9:36 AM . Narrative 01/08/2019 9:36 AM CDT EXAMINATION: Magnetic resonance imaging (MRI) of the pelvis without and with contrast HISTORY: elevated PSA, 70g prostate, history of equivocal biopsy TECHNIQUE: MRI of the pelvis was performed prior to and following administration of 14 mL Multihance according to standard protocol. COMPARISON: No prior study is available for comparison. FINDINGS: The prostate is enlarged measuring 4.3 x 5.4 x 5.0 cm. No evidence of focal lesion in the prostatic peripheral zone. The transition zone has multiple well circumscribed nodules consistent with prostatic hyperplasia. There is no evidence of extraprostatic tumor extension or involvement of the seminal vesicles. The bladder is thickened secondary to chronic bladder outlet obstruction. No free pelvic fluid is identified. Pelvic and inguinal lymph nodes are not enlarged. Bone marrow signal intensity is normal. Procedure Note Jaime Yeh MD - 01/08/2019 EXAMINATION: Magnetic resonance imaging (MRI) of the pelvis without and with contrast HISTORY: elevated PSA, 70g prostate, history of equivocal biopsy TECHNIQUE: MRI of the pelvis was performed prior to and following administration of 14 mL Multihance according to standard protocol. COMPARISON: No prior study is available for comparison. FINDINGS: The prostate is enlarged measuring 4.3 x 5.4 x 5.0 cm. No evidence of focal lesion in the prostatic peripheral zone. The transition zone has multiple well circumscribed nodules consistent with prostatichyperplasia. There is no evidence of extraprostatic tumor extension or involvement of the seminal vesicles. The bladder is thickened secondary to chronic bladder outletobstruction. No free pelvic fluid is identified. Pelvic and inguinal lymph nodes are not enlarged. Bone marrow signal intensity is normal. IMPRESSION: 1. Prostatic hyperplasia (PI-RADS 2). No focal lesion concerning for prostate cancer is identified. Dictated by Noble Torres MD (radiology receptionist). I, Dr. JAIME YEH M.D. have personally reviewed and interpreted this examination/study. This report was electronically signed by JAIME YEH M.D. on01/08/2019 9:36 AM . Ilda Yip DO ORDERABLES * CULTURE URINE (12/10/2018 10:47 AM CDT) Culture Urine No growth (<100 CFU/mL) DM 12/12/2018 10:13 AM CDT [facility] Urine MID-STREAM URINE SPECIMEN / Unknown Collection / Unknown 12/10/2018 10:47 AM CDT 12/10/2018 3:00 PM CDT Ilda Yip DO LAB - MICROBIOLOGY ORDERABLES [facility] [address] [place] [address], [facility] [phone] Care Teams Senior Mechanical Project Manager Relationship Specialty Start Date End Date Fabiano Mosley MD PCP - General 12/06/18
--- OUTSIDE RECORDS SUMMARY | 2024-04-12 09:01 | XMS_ITS | Referral Summary ---
Author Organization [facility] Address [address] [place] [address] Care Team Providers Care Steam And Power Supervisor Name Role Phone Fabiano Mosley MD Primary Care Provider [phone] Source Comments [facility],non-owned Affiliates and Associated Physician Practices is amultiple site organization consisting of ambulatory clinics and hospital sitesin [place], [place], [place] and [place]. This disclosure is being madepursuant to the Care Everywhere program and may not contain all information available regarding this patient. Last updated 18.[facility] Encounters Date Type Department Care Team Description 03/31/2024 Travel 02/06/2024 Travel 02/06/2024 9:00 AM CDT Office Visit [facility] - Vascular Surgery [address] [facility], [place] [address] Herminia Howe MD Bilateral carotid artery stenosis (Primary Dx); Voice disturbance; S/P carotid endarterectomy 02/04/2024 Travel 02/04/2024 2:00 PM CDT - 02/04/2024 11:59 PM CDT Hospital Encounter [facility] US [address] [place] [address] Viola Browne, PROFESSIONAL SECURITY OFFICER-ANTIQUE REPAIRER Discharge Disposition: Home or Self Care 02/04/2024 12:56 PM CDT - 02/04/2024 1:59 PM CDT Hospital Encounter [facility] VASCULAR US [address] [place] [phone] Viola Browne, PROFESSIONAL SECURITY OFFICER-ANTIQUE REPAIRER Discharge Disposition: Home or Self Care 01/16/2024 Telephone [facility] - Centralized Scheduling [address] [place] [phone] Herminia Howe MD Appointment from Last 3 Months Allergies No known active allergies Medications * [...] and heating? Not hard at all 11/26/2023 [facility] - Occupational Stress [...] place to sleep or slept in a usp (including now)? No 11/26/2023 Sex and Gender [...] Mass Index 22.03 02/06/2024 9:02 AM CDT Functional Status Functional Status Response Date of [...] person have difficulty concentrating/remembering/making decisions? No 11/26/2023 Plan of Treatment Upcoming Encounters Date Type Department Care Team (Late st Contact Info) Description 07/23/2024 11:00 AM CDT Appointment [facility] US [address] [place] [address] Herminia Howe MD [address] [place] [address] [address] [place] [address] 07/23/2024 12:15 PM CDT Office Visit [facility] - Vascular Surgery [address] [place] [address], [place] [address] Herminia Howe MD [address] [place] [address] [address] [place] [address] Goals Goal Patient Goal Type Associated Problems Recent Progress Patient-Stated? Author Patient will adhere to medication regimen General On track( 023 8:59 AM CDT) No Dari Torres RN Medical Devices Implanted Type Area Shells Inspector Device Identifier Shelf Expiration Date Model / Serial / Lot Sphr Embl Ylw Hydropearl 200um Ricky Pg Implanted:Qty: 1 on 08/02/2022 by [place] Loving MD at [facility] Arterial [employer] Alex 06/13/2025 [id number] / / [id number] Patch Cv 6x1cm Vsgrd Bvn Pricrd Strl Implanted:Qty: 1 on 11/26/2023 by Herminia Howe MD at [facility] Left: Carotid [employer] [id number] / / Procedures Procedure Name Priority Date/Time [...] MD > Dictated by Humza Chappell MD (Furniture Dipper) 02/04/2024 3:28 PM IAgustin MD have personally reviewed and interpreted this examination/study. > Interpreting Provider: Agustin Noriega MD on 02/04/2024 6:06 PM Narrative 02/04/2024 6:06 PM CDT PROCEDURE: ??US AAA SCREENING, DATE/TIME OF EXAM: ??02/04/2024 2:54 PM, LOCATION ??[facility] INDICATION: R19.8: Pulsatile abdomen ADDITIONAL CLINICAL [...] DATE/TIME OF EXAM: 02/04/2024 2:54 PM, LOCATION [facility] INDICATION: R19.8: Pulsatile abdomen ADDITIONAL CLINICAL [...] MD > Dictated by Humza Chappell MD (Furniture Dipper) 02/04/2024 3:28 PM IAgustin MD have personally reviewed and interpreted this examination/study. > Interpreting Provider: Agustin Noriega MD on 02/04/2024 6:06 PM [facility] ORDERABLES * VAS Carotid Duplex Bilateral (02/04/2024 1:49 PM CDT) Anatomical Region Laterality Modality Neck Intravascular Ul trasound 02/04/2024 1:22 PM CDT Narrative Procedure Note Jabari Williamson MD - 02/04/2024 [facility] O RDERABLES from Last 3 Months Advance Directives * Full Code (Latest Code Status on File) Date Activated Date Inactivated Comments 11/26/2023 11:14 AM 11/27/2023 2:50 PM Care Teams Steam And Power Supervisor Relationship Specialty Start Date End Date Fabiano Mosley MD PCP - General 12/06/18
--- OUTSIDE RECORDS SUMMARY | 2024-04-12 09:01 | XMS_ITS | Encounter Summary ---
Author Organization [facility] Address [address] [place] [address] Care Team Providers Care Consultant Teacher Name Role Phone Fabiano Mosley MD Primary Care Provider [phone] Encounter Details Date Type Department Care Team (Latest Contact Info) Description 02/04/2024 Travel Social History Tobacco Use Types Packs/Day [...] and heating? Not hard at all 11/26/2023 [facility] [place] [facility] - Occupational Stress [...] place to sleep or slept in a residential (including now)? No 11/26/2023 Sex and Gender [...] Info) Description 07/23/2024 11:00 AM CDT Appointment [facility] [address] [place] [phone] Herminia Howe MD [address] [facility] [address] [facility] [place] [phone] 07/23/2024 12:15 PM CDT Office Visit [facility] - [facility]ascular [facility] [address] [facility], [place] [address] Herminia Howe MD [facility] [facility] 2L [place] [phone] documented as of this encounter Goals Goal Patient Goal Type Associated Problems Recent Progress Patient-Stated? Author Patient will adhere to medication regimen General On track( 023 8:59 AM CDT) Dari Gardner RN documented as of this encounter Visit Diagnoses Not on filedocumented in this encounter Care Teams Consultant Teacher Relationship Specialty Start Date End Date Fabiano Mosley MD PCP - General 12/06/18 documented as of this encounter
--- OUTSIDE RECORDS SUMMARY | 2024-04-12 09:01 | XMS_ITS | Encounter Summary ---
Author Organization [facility] Address [address] [place] [address] Care Team Providers Care Volumetric Weigher Name Role Phone Fabiano Mosley MD Primary Care Provider [phone] Reason for Visit * Reason Comments Post-Op POST OP FOLL UP - ca rotid stenosis s/p endart and AAA DOS: 11/26/23 Encounter Details Date Type Department Care Team (Late st Contact Info) Description 01/09/2024 11:30 AM CDT Office Visit [facility] - Vascular Surgery [address] [place] [address], [place] [address] Herminia Howe MD [address] [place] [address] [place] [address] Carotid stenosis, asymptomatic, left (Primary Dx) Social History Tobacco Use Types Packs/Day Years [...] and heating? Not hard at all 11/26/2023 [facility] Occupat ional Health - Occupational Stress [...] Sign Reading Time Taken Comments Blood Pressure 135/87 01/09/2024 11:21 AM CDT Pulse 80 01/09/2024 11:21 AM CDT Temperature 36.6 ??C (97.8 ??F) 01/09/2024 11:21 AM C DT Respiratory Rate - - Oxygen Saturation 96% 01/09/2024 11:21 AM CDT Inhaled Oxygen Concentration - - Weight 74.4 kg (164 lb) 01/09/2024 11:21 AM CDT Height 185.4 cm (6' 1 ) 01/09/2024 11:21 AM CDT Body Mass Index 21.64 01/09/2024 11:21 AM CDT documented in this encounter Functional Status Functional Status Response [...] No 11/26/2023 documented as of this encounter Patient Instructions * Patient Instructions* Lucinda Dalton RN - 01/09/2024 11:34 AM CDT Follow up with Dr. Howe in 1 month after your scheduled test has been completed. Testing ordered: Carotid duplex & AAA screening Scheduling will contact you to make an appointment for your test. To make, change, or cancel an appointment call [phone]. [facility] Vascular Surgery documented in this encounter Progress Notes * Herminia Howe MD - 01/09/2024 11:34 AM CDT Vascular Surgery History and Physical Encounter Date: 01/09/2024 Patient's Primary Care Physician: Fabiano Mosley MD Name: Cruz Carreon Age: [age] year old Sex: male Date: 01/09/2024 History of Present Illness: Cruz Carreon is a 73 year old male who presents status post left carotid endarterectomy owing to L carotid artery stenosis. Since surgery, patient has been doing well. Pain has been well controlled. Reports his voice has been improving but not back to baseline. Has been having migraines on and off which is typical for him. Recent changes in his BP meds. Denies fevers, chills, nausea, vomiting. Has been able to return tobaseAzubu activity. Past Medical History: Past Medical History: Diagnosis Date Arthritis BPH (benign prostatic hyperplasia) Essential hypertension GERD (gastroesophageal reflux disease) tums prn Syncope and collapse Past Surgical History: Past Surgical History: Procedure Laterality Date Carotid Endarterectomy Left 11/26/2023 Left; LEFT CAROTID ENDARTERECTOMY, cerebral oximetry monitoring and patch closure COLONOSCOPY WITH POLYPECTOMY Fracture Repair Right right arm ORIF PROSTATE BIOPSY, NEEDLE Septoplasty Tonsillectomy Bilateral Home Medications: Current Outpatient Medications Medication Sig amLODIPine-benazepril (Lotrel) 5-20 MG capsule Take 1 (one) capsule by mouth once daily aspirin (Aspirin) 81 MG chew tablet Take 1 (one) tablet by mouth once daily msegvsx-ifvqhjtawlvvm-ffyobhfj 250-250-65 MG tablet Take 1 (one) tablet by mouth every 4 hours as needed for Headache atorvastatin (Lipitor) 40 MG tablet Take 1 (one) tablet by mouth once daily cyclobenzaprine (Flexeril) 5 MG tablet Take 1 (one) tablet by mouth 3 times daily as needed FOR MUSCLE SPASM ibuprofen (Motrin) 200 MG tablet Take 1 (one) tablet by mouth as needed for Pain multivitamin daily tablet Take 1 (one) tablet by mouth daily with food SUMAtriptan (Imitrex) 50 MG tablet TAKE 1 TABLET BY MOUTH FOR HEADACHE IF NO RELIEF REPEAT 1 TAB AFTER AT LEAST 2 HOURS, MAX 4 TABLETS PER DAY No current facility-administered medications for this visit. Allergies: No Known Allergies Social History: Social History Socioeconomic History Marital status: Single Tobacco Use Smoking status: Every Day Packs/day: 1.00 Years: 18.00 Additional pack years: 0.00 Total pack years: 18.00 Types: Cigarettes Smokeless tobacco: Never Vaping Use Vaping Use: Never used Substance and Sexual Activity Alcohol use: Not Currently Alcohol/week: 14.0 standard drinks of alcohol Types: 14 Glasses of wine per week Comment: couple glasses of wine a day Drug use: Not Currently Types: Marijuana Comment: pot daily, one hitter Family History: Family History Problem Relation Name Age of Onset Diabetes; unknown type Mother Other - Cardiac Father Cancer - Lung Sister Other - Cardiac Brother Review of Systems Pertinent positives of ROS are listed above Exam Vitals: 01/09/24 1121 BP: 135/87 Pulse: 80 Temp: 97.8 ??F (36.6 ??C) SpO2: 96% Weight: 74.4 kg (164 lb) Height: 1.854 m (6' 1 ) BP 135/87 (BP Location: Left arm, Patient Position: Sitting, BP Cuff Size: Small adult) Pulse 80 Temp 97.8 ??F (36.6 ??C) (Temporal) Ht 1.854 m (6' 1 ) Wt 74.4 kg (164 lb) SpO2 96% Physical Exam: Gen: NAD and A&O x 3 ENT: Normocephalic and EOMI, incision healing well c/d/I, no swelling around incision site Resp: unlabored breathing on RA CV: RRR MSK: pulse exam: Present palpable bilateral radial Psych: Appropriate mood and affect Data Recent Labs Component Name 11/27/23 0716 11/26/23211911/23/23 1134 WBC 10.2 9.0 9.0 HGB 11.2* 11.1* 13.5 HCT 31.7* 31.5* 38.5* Recent Labs Component Name 11/27/23 0716 11/26/23211911/23/23 1134 NA 133* 134* 139 CL 105 106 106 CO2 18* 17* 23 BUN 22 21 29* CREATININE 1.24* 1.26* 1.44* CALCIUM 8.7 8.8 9.4 MAGNESIUM - 1.8 - No results for input(s): PROT , ALB , TBILI , AST , ALT , ALKPHOS in the last 18658 hours. Imaging None Assessment: Cruz Carreon is a 73 year old male who presents status post left carotid endarterectomy owing to L carotid artery stenosis. Voice is not back to baseline, will reassess at next follow up. Patient is recovering well from surgery. Plan: - Patient can follow-up in 1 month with carotid duplex and AAA screening Patient seen and discussed with Dr. Herminia Howe. Manuel Thomas, MS4 I have verified the documentation of the medical student including all history, exam, and medical decision-making details. I have personally performed a physical exam and have personally reviewed thedata to support my medical decision-making as outlined in the medical student's note, and I arrive i ndependently at the same conclusion. Date of service is date of medical student signature in medical student note documented in this encounter Plan of Treatment Upcoming Encounters Date Type Department Care Team (Late st Contact Info) Description 07/23/2024 11:00 AM CDT Appointment [facility] [address] [place] [address] Herminia Howe MD [address] [facility] 2L [place] [address] 07/23/2024 12:15 PM CDT Office Visit [facility] - Vascular Surgery [address] [facility], [place] [address] Herminia Howe MD [address] [facility] 2L [place] [address] documented as of this encounter Goals Goal Patient Goal Type Associated Problems Recent Progress Patient-Stated? Author Patient will adhere to medication regimen General On track( 023 8:59 AM CDT) Dari Gardner RN documented as of this encounter Visit Diagnoses Diagnosis Carotid stenosis, asymptomatic, left- Primary documented in this encounter Care Teams Volumetric Weigher Relationship Specialty Start Date End Date Fabiano Mosley MD PCP - General 12/06/18 documented as of this encounter
--- OUTSIDE RECORDS SUMMARY | 2024-04-12 09:01 | XMS_ITS | Encounter Summary ---
Author Organization [facility] Address [address] [place] [address] Care Team Providers Care Slitter Processed Film Name Role Phone Fabiano Mosley MD Primary Care Provider [phone] Reason for Referral * Radiology Services (Routine) - Closed Specialty Diagnoses / Procedures Referred By Contac t Referred To Contact Vascular Lab Diagnoses Pulsatile abdomen Procedures US AAA Screening VAS AAA Screening Viola Browne APRN-CNP [address] [place] [address] [facility] [place] [address] Referral ID Status Reason Start Date Expiration Date Visits Re quested Visits Authorized [id number] Closed 11/27/2023 11/26/2024 1 1 * Radiology Services (Routine) - Closed Specialty Diagnoses / Procedures Referred By Contac t Referred To Contact Vascular Lab Diagnoses Carotid stenosis, asymptomatic, left Procedures VAS Carotid Duplex Bilateral Viola Browne APRN-CNP [address] [place] [address] [facility] [address] [place] [address] Referral ID Status Reason Start Date Expiration Date Visits Re quested Visits Authorized [id number] Closed 11/27/2023 11/26/2024 1 1 Reason for Visit * Auth/Cert (Routine) Specialty Diagnoses / Procedures Referred By Lissa t Referred To Contact Diagnoses Stenosis of left carotid artery without cerebral infarction STENOSIS OF LEFT CAROTID ARTERY WITHOUT CEREBRAL INFARCTION [I65.22] Procedures TX TEAEC W/PATCH GRF CRTD VRT SUBCLA NCK INC ENDARTERECTOMY CAROTID (CEA) Referral ID Status Reason Start Date Expiration Date Visits Re quested Visits Authorized [id number] 1 1 Encounter Details Date Type Department Care Team (Latest Contact Info) Description 11/26/2023 5:33 AM CDT - 11/27/2023 1:40 PM CDT Hospital Encounter [facility] 4S ICU [address] [place] [id number] Herminia Howe MD [address] [facility] 2L [place] [id number] Surgery General Discharge Disposition: Home or Self Care Social History Tobacco Use Types Packs/Day Years Used Date Smoking Tobacco: Every Day Cigarettes 1 18 Smokeless Tobacco: Never Alcohol Use Standard Drinks/Week Comments Yes 14 (1 standard drink = 0.6 oz pu re alcohol) couple glasses of wine a day [...] and heating? Not hard at all 11/26/2023 [facility] - Occupational Stress [...] place to sleep or slept in a long term (including now)? No 11/26/2023 Sex and Gender Information Value Date Recorded Sex Assigned at Not on file Gender Identity Not on file Sexual Orientation Not on file documented as of this encounter Last Filed Vital Signs Vital Sign Reading Time Taken Comments Blood Pressure 125/87 11/27/2023 12:00 PM CDT Pulse 60 11/27/2023 12:00 PM CDT Temperature 36.8 ??C (98.3 ??F) 11/27/2023 8:00 AM CD T Respiratory Rate 14 11/27/2023 12:00 PM CDT Oxygen Saturation 97% 11/27/2023 12:00 PM CDT Inhaled Oxygen Concentration 21% 11/26/2023 1 2:00 PM CDT Weight 73.7 kg (162 lb 8 oz) 11/26/2023 6:10 AM CDT Height 185.4 cm (6' 1 ) 11/26/2023 6:10 AM CDT Body Mass Index 21.44 11/26/2023 6:10 AM CDT documented in this encounter Functional [...] No 11/26/2023 documented as of this encounter Discharge Summaries * Herminia Howe MD - 11/27/2023 10:17 AM CDT Physician Discharge Summary Patient ID: Liz Turcios [id number] 73 year old 1950 Admit date: 11/26/2023 Discharge date and time: 11/27/2023 Admitting Physician: Herminia Howe MD Discharge Physician: Dr. Howe Present on admission: Left carotid artery stenosis Discharge Diagnoses: Same s/p left carotid endarterectomy Admission Condition: poor Discharged Condition: fair Indication for Admission: Mr. Trucios is a 73 yo male with pmhx history of HTN, GERD, BPH, tobacco use, and a prior hx of a stroke, who was noted to have a high-grade stenosis of the proximal left ICA. He was offered left carotid endarterectomy, which he presented for on 11/25. Hospital Course: He underwent above mentioned operation; see operative report for full details. He went to the ICU for close neurological checks which remained intact. ACC was consulted for ICU management. He remained HDS. His pain has been controlled. He has tolerated diet and he has ambulated. His drain has been removed and he is voiding spontaneously. He is stable for d/c with f/u in 1 wk for a wound check and 1 month with a repeat carotid duplex and screen US for AAA. Consults: ACC Significant Diagnostic Studies: See hospital course AMI/HF Data: Diagnostic testing reveals:n/a Discharge Exam: Gen: alert, oriented, cooperative, in nAD HEENT: NC/AT, left neck incision with skin glue c/d/I. Drain with serosanguinous drainage-removed at bedside Resp: unlabored breathing on RA CV: RRR Abd: soft, NT/ND Neuro: no focal deficits, Ellen equally, strength equal x 4, speech clear Psych: appropriate mood and affect. Disposition: Home Patient Instructions: Medication List CONTINUE taking these medications aspirin 81 MG chew tablet Commonly known as: Aspirin hqkksno-tgvhnyuodqkci-hgzhjwbv 250-250-65 MG tablet atorvastatin 40 MG tablet Commonly known as: Lipitor ibuprofen 200 MG tablet Commonly known as: Motrin multivitamin daily tablet SUMAtriptan 50 MG tablet Commonly known as: Imitrex Discharge Instructions Activity: No strenuous activity, heavy lifting or tub bathing for 2 weeks. If on pain medication aside from Tylneol, no driving within 24 hours of pain medication. Soreness: It is normal to have incision discomfort. You may use over the counter Tylenol (acetaminophen). Do not exceed 4 gms daily Wound Care: Your incision has a liquid film called skin glue which holds edges together. It will usually remain in place for 5-10 days, then naturally fall of your skin. Some swelling, redness, and pain are common with all wounds and normally will go away as the incision heals. If swelling, redness, or pain increases of if the incision feels warm to touch, contact the Vascular surgery office. Also, contact the office if the incision edges reopen or separate. Do not place tape on the skin glue. Do not scratch, rub, or pick at the skin glue. Avoid prolongedexposure to sunlight while the glue is in place. Avoid liquid or ointment medications to the incision while the glue is in place. Keep the site dry and protected. You may briefly wet it in the shower, but do not soak or scrub the incision. Gently blot dry the incision after showering. Medications: Continue your Aspirin and Statin Contact the [facility] Vascular Surgery Office at for questions and concerns regarding your incision: redness, drainage, swelling at incision, increased pain, or for chills/fever/ temperature greater than 101 degrees OR for a new/worsening headache unrelieved by Tylenol. After hours # is [phone] Seek emergency medical attention for signs of a TIA or stroke: F.A.S.T. F: Face drooping, or numbness on one side. This may be more noticeable when you ask the affected person to smile. A: Arm weakness or numbness. The affected person may have trouble using or lifting one side. S: Speech difficulty. Speech may be slurred or hard to understand. The affected person may also usethe wrong words. T: Time to call 911. Time is critical in treating a stroke. Call 911 as soon as you suspect a stroke has happened--even a small one. The sooner treatment is started the better, even if the symptoms go away. Other common symptoms of a stroke include: Having trouble getting the right words to come out Weakness in one leg Numbness on one side Trouble walking Trouble with coordination Trouble with vision Severe headache Confusion Dizziness Follow up with vascular, Dr Howe, in 1 week for a wound check and in 1 month with a carotid duplex and abdominal ultrasound prior to appt; you will be contacted regarding this. If you need to make/change an appt call [phone] Signed: JOSE De La Torre 11/27/2023 documented in this encounter Discharge Instructions * Discharge Instructions* Viola Browne APRN-CNP - 11/27/2023 10:01 AM CDT Activity: No strenuous activity, heavy lifting or tub bathing for 2 weeks. If on pain medication aside from Tylneol, no driving within 24 hours of pain medication. Soreness: It is normal to have incision discomfort. You may use over the counter Tylenol (acetaminophen). Do not exceed 4 gms daily Wound Care: Your incision has a liquid film called skin glue which holds edges together. It will usually remain in place for 5-10 days, then naturally fall of your skin. Some swelling, redness, and pain are common with all wounds and normally will go away as the incision heals. If swelling, redness, or pain increases of if the incision feels warm to touch, contact the Vascular surgery office. Also, contact the office if the incision edges reopen or separate. Do not place tape on the skin glue. Do not scratch, rub, or pick at the skin glue. Avoid prolonged exposure to sunlight while the glue is in place. Avoid liquid or ointment medications to the incision while the glue is in place. Keep the site dry and protected. You may briefly wet it in the shower,but do not soak or scrub the incision. Gently blot dry the incision after showering. Medications: Continue your Aspirin and Statin Contact the [facility] Vascular Surgery Office at for questions and concerns regarding your incision: redness, drainage, swelling at incision, increased pain, or for chills/fever/ temperature greater than 101 degrees OR for a new/worsening headache unrelieved by Tylenol. After hours # is [phone] Seek emergency medical attention for signs of a TIA or stroke: F.A.S.T. F: Face drooping, or numbness on one side. This may be more noticeable when you ask the affected person to smile. A: Arm weakness or numbness. The affected person may have trouble using or lifting one side. S: Speech difficulty. Speech may be slurred or hard to understand. The affected person may also usethe wrong words. T: Time to call 911. Time is critical in treating a stroke. Call 911 as soon as you suspect a stroke has happened--even a small one. The sooner treatment is started the better, even if the symptoms go away. Other common symptoms of a stroke include: Having trouble getting the right words to come out Weakness in one leg Numbness on one side Trouble walking Trouble with coordination Trouble with vision Severe headache Confusion Dizziness Follow up with vascular, Dr Howe, in 1 week for a wound check and in 1 month with a carotid duplex and abdominal ultrasound prior to appt; you will be contacted regarding this. If you need to make/change an appt call [phone] documented in this encounter Medications at Time of Discharge Medication Sig Dispensed Refills Start Date End Date aspirin (Aspirin) 81 MG chew tablet Take 1 (one) tablet by mouth once daily nmftlgg-jayliorjdytdb-hnb feine 250-250-65 MG tablet Take 1 (one) tablet by mouth every 4 hours as needed for Headache atorvastatin (Lipitor) 40 MG tablet Take 1 (one) tablet by mouth once daily 10/31/2023 ibuprofen (Motrin) 200 MG tablet Take 1 (one) tablet by mouth as needed for Pain multivitamin daily tablet Take 1 (one) tablet by mouth daily with food SUMAtriptan (Imitrex) 50 MG tablet TAKE 1 TABLET BY MOUTH FOR HEADACHE IF NO RELIEF REPEAT 1 TAB AFTER AT LEAST 2 HOURS, MAX 4 TABLETS PER DAY 11/05/2023 documented as of this encounter Progress Notes * Jaky Wagner RN - 11/27/2023 1:39 PM CDT Pt discharged to home with family * Jaky Wagner RN - 11/27/2023 1:36 PM CDT Pt discharged to home with family via wheelchair. Pt did not bean picker prescription given for his headache because he did not want to wait for it. Discharge paperwork and instructions for follow up given. Pt voiced understanding of instructions given. . * Lucy Hernandez RN - 11/27/2023 10:25 AM CDT Care Coordination Initial Assessment Anticipated Discharge Date: 11/27/23 Transportation at Discharge: Family Anticipated level of care at discharge: Home Anticipated level of care provider: None Prior to admission level of care: Home Prior to admit provider: None Patient Goals: Home with dght to transport Plans: No discharge needs identified at this time. Consult Case Management if discharge planning needs arise. Comments: The patient is being discharge home today. He lives alone in an apartment with 2 steps toenter. He was driving and independent with ADL's at baseline. His dght is coming at noon to transport him home today. No case management needs identified. Lives with: Alone Physical Limitations: None Requires Assistance With: None [facility]erred Pharmacy: [facility] [address] [facility] [id number] [address] [facility] [id number] Advance Directive: No Advance Directive READMISSION RISK SCORE is 12 at 10:25 AM 11/27/2023. Met with patient Family Support (name and phone): Extended Emergency Contact Information Primary Emergency Contact: Amelia Turcios Mobile Relation: Sister Director Of Event Sales needed? No Secondary Emergency Contact: Samara Turcios Mobile Relation: Daughter Patient or enrollment representative requests care coordination reach out to family or caregiver listed above regarding discharge planning and at time of discharge? No Patient/Family provided with list of resources? No Preferred Provider / High Quality Network List given?: No Reason for provider choice: Pt. choice - Pt. choice Equipment at Home: None List DME pt. requires but does not have.: None Pcat Instructor Referral: No Will continue to follow. For any questions or needs please contact: Name: Lucy Hernandez RN * Carlos Enrique Braswell MD - 11/27/2023 9:34 AM CDT Images from the original note were not included. [facility] Anesthesia Critical Care Service Resident Progress Note Admit Date: 11/26/2023 Hospital Day: 2 Subjective: Admission History Liz Turcios is a 73 year old male who presents 11/26/23 for surgery for left carotid stenosis found on CT scan during workup of syncopal episodes. Patient reports that in the last 6 years, he has had 7 episodes where he becomes lightheaded and diaphoretic prior to passing out. CTA demonstratesstring sign on the left with diminutive left ICA following stenosis suggestive of chronic disease. VAS carotid duplex on 11/2023 demonstrated 80 - 99% stenosis of the left internal carotid artery. Patient Reports a >50 yr hx of smoking and he stopped drinking alcohol 3 months ago. PMHx is otherwise significant for HTN (no medication), TIA (no deficits), palpitations (nuclear stress test in 2019 @ OSH, unremarkable, EF: 62%), lung fibrosis (no inhalers, breathing @ baseline) and BPH (s/p unilateral prostate artery embolization in 2022). Interval History Mr. Turcios was seen this morning resting comfortably in bed and in no acute distress. Pain is wellcontrolled on current regimen. Hemodynamically stable overnight without pressors. Oxygenating well (SpO2>92) on room air. Patient is on IVF with adequate UOP. Incision site is clean, dry and intact with PRICILA drain (75mL or serosanguinous output). Patient denies fevers/chills, N/V, lightheadedness or headache. Anticipate possible discharge today. Scheduled Medications 0.9% NaCl 3 mL Intracatheter q8h acetaminophen 650 mg Oral q6h heparin 5,000 Units Subcutaneous q8h pantoprazole 40 mg Intravenous QDAY Continuous Medications / Infusions 0.9% NaCl IV, PRN Medications 0.9% NaCl, 1-10 mL, PRN bisacodyl EC, 5 mg, QDAY PRN xvsxtwclmf-egfkkjhsvdday-rhbqjyce, 1 tablet, BID PRN hydrALAZINE, 5 mg, q15 min PRN labetalol, 5 mg, q10 min PRN melatonin, 3 mg, AT BEDTIME PRN oxyCODONE (immediate release), 5 mg, q4h PRN Or oxyCODONE (immediate release), 10 mg, q4h PRN polyethylene glycol 3350, 17 g, QDAY PRN SUMAtriptan, 50 mg, QD PRN - MR X 1 Objective: Patient Vitals for the past 8 hrs: BP Temp Temp src Pulse Resp SpO2 11/27/23 1000 151/93 -- -- 55 16 96 % 11/27/23 0900 136/88 -- -- 56 14 97 % 11/27/23 08 137/91 98.3 ??F (36.8 ??C) Oral 63 17 96 % 11/27/23 0700 133/89 -- -- 64 16 97 % 11/27/23 0600 127/81 -- -- 75 12 97 % 11/27/23 0500 141/90 -- -- 73 15 98 % 11/27/23 0411 -- -- -- 69 15 97 % 11/27/23 0404 -- -- -- 80 14 97 % 11/27/23 0400 106/78 -- -- 84 28 99 % 11/27/23 0300 125/87 -- -- 67 14 96 % Temp (24hrs), Av.1 ??F (36.7 ??C), Min:97.7 ??F (36.5 ??C), Max:98.3 ??F (36.8 ??C) Date 11/26/23 07 - 11/27/23 0659 11/27/23 07 - 11/28/23 0659 Shift 9740-8885 7493-8541 24 Hour Total 0223-9302 3503-5668 24 Hour Total INTAKE I.V.(mL/kg/hr) 1500(1.7) 1500(0.8) Shift Total(mL/kg) 1500(20.4) 1500(20.4) OUTPUT Urine(mL/kg/hr) 350(0.4) 650(0.7) 1000(0.6) 250 250 Drains 45 30 75 Shift Total(mL/kg) 395(5.4) 680(9.2) 1075(14.6) 250(3.4) 250(3.4) NET 1108 -070 425 250 -250 Weight (kg) 73.7 73.7 73.7 73.7 73.7 73.7 Physical Examination GENERAL: No apparent distress HEENT: Head normocephalic and atraumatic. EOM intact. PERRL, left neck incision site c/d/i CARDIOVASCULAR: Regular rate and rhythm, normal S1 and S2, no murmurs appreciated LUNGS: Clear to auscultation bilaterally. Normal respiratory effort ABDOMEN: Soft, non-tender EXTREMITIES: No lower extremity edema NEUROLOGIC: A&O x4, moving all four extremities Data Review Labs: Hematology: Recent Labs Component Name 11/27/23 0711/26/23211911/23/23 1134 WBC 10.2 9.0 9.0 HGB 11.2* 11.1* 13.5 HCT 31.7* 31.5* 38.5* PLTCOUNT 170 166 197 MCV 93.0 92.9 94.1 MCH 32.8 32.7 33.0 MCHC 35.3 35.2 35.1 Chemistry: Recent Labs Component Name 11/27/23 0716 11/26/23211911/23/23 1134 NA 133* 134* 139 POTASSIUM 3.9 4.3 4.2 CL 105 106 106 CO2 18* 17* 23 ANIONGAP 10 11 10 BUN 22 21 29* CREATININE 1.24* 1.26* 1.44* EGFR 62* 61* 52* GLUCOSE 126* 106 90 CALCIUM 8.7 8.8 9.4 MAGNESIUM - 1.8 - PHOS - 4.0 - BCR 18 17 20 OSMOLALITY 281 281 293 Point of Care Glucose No results for input(s): [id number] in the last 45947 hours. Liver and Pancreatic Function: No results for input(s): PROT , ALB , DBILI , TBILI , ALT , AST , ALKPHOS , USHA , AMYLASE , LIPASE in the last 51108 hours. Coagulation: Recent Labs Component Name 11/23/23 1134 08/02/22 1206 PT 13.2 12.7 INR 1.0 1.0 PTT 33.1 - Cardiac Enzymes: No results for input(s): CKMB , CKTOTAL , TROPONINI , CK , TROPIHS , TROPIHSSNGL , DELTATNIBASE in the last 82678 hours. Arterial Blood Gas: Recent Labs Component Name 11/26/23 0827 PH 7.33* PCO2 43 PO2 241* [id number] 22.7 BE -3.2* Drug Levels: No results for input(s): TACROLIMUS , VANCTROUGH , DIGOXIN in the last 63891 hours. Virology/Bacteriology: No results for input(s): SARSCOV2 , RINFLUANAA , RINFLUBNAA , MRSADPCR in the last 15512 hours. Blood Bank: Recent Labs Component Name 11/26/23 0614 11/23/23 1134 ABORH O POS O POS ABSCG NEG NEG Urine: Recent Labs Component Name 08/02/22 1206 LABSPEC 1.011 Microbiology: Imaging: *All other imaging reviewed Assessment and Plan: Neurologic: Acute Post-Operative Pain Prior TIA w/o Deficits Prior Alcohol Use Disorder, Quit 07/2023 Migraine Headaches - Monitor mental status every hour and notify physician of changes. - Continue home Fioricet at BID PO PRN dosing - Continue home sumatriptan at 50mg qday for migraines PRN - Pain Control: - Tylenol 650mg PO q6hrs scheduled - Oxycodone 5/10mg PO q4hrs PRN for moderate/severe pain Respiratory: Acute Pulmonary Insufficiency Tobacco Use Disorder - Supplemental O2 PRN to maintain SpO2 > 92% - Keep HOB elevated 30 degrees, mouth care, aspiration precautions. - Aggressive pulmonary toilet Cardiovascular: Stenosis of the Left Carotid Artery Essential Hypertension Hyperlipidemia S/p Left Carotid Endarterectomy with Patch Repair (11/25) - Hemodynamic monitoring: Left Radial Arterial Line (d/c 11/26) - SBP goal 140-160 mmHg - Maintain MAP > 65 mmHg - Vascular Checks q1hr (Vascular Primary) - Holding home atorvastatin 40mg qday - Plan to restart ASA 81mg qday (11/26) Gastrointestinal: No Acute Concerns Gastroesophageal Reflux - Diet: Regular - SUP w/ Protonix 40mg IV qday scheduled - Bowel Regimen: - Bisacodyl 5mg PO qday PRN - MiraLAX 17g packet PO qday PRN Renal: No Acute Concerns Benign Prostatic Hyperplasia S/p Unilateral Prostate Artery Embolization (2022) - Discontinue IVF - Strict I&Os; Monitor UOP - Monitor electrolytes qday; replete as indicated Hematologic: Acute Blood Loss Anemia - Plan to restart ASA 81mg qday today (11/26) - DVT ppx w/ SCDs; SubQ Heparin 5000 units q8hrs - Monitor H&H qday - Transfusion Protocol: Hgb < 7, Plts < 50 Infections Diseases: No Acute Concerns - Monitor temperature w/ vitals - Monitor WBC qday Endocrine: No Acute Concerns - Monitor glucose levels - Consider SSI Prophylaxis: - GI Prophylaxis: Protonix - DVT Prophylaxis: SCDs; SubQ Heparin Activity: As tolerated Lines/Drains/Airways: - PIVs x2 - Left Radial Arterial Line (11/25 - 11/26) - Left Neck PRICILA Drain (11/25 - 11/26) Disposition: ICU management Code Status: TSL-1, Full Code Carlos Enrique Braswell MD Anesthesia Critical Care, PGY-1 [facility] 11/26/2023 12:30 PM Attestation: Please see note from Dr. Derrick Bush for further details. * Derrick Bush MD - 11/27/2023 8:57 AM CDT Images from the original note were not included. Admit Date: 11/26/2023 Hospital Day: 2 Subjective: Admission / Interval History: Per H&P: 73 year old male with PMHx of HTN, TIA, syncope who presents today for surgery. Patient was last seen in clinic on 11/14/23. There has been no new changes to medications, allergies or medical hx since then. NPO since midnight. No acute events overnight. s/p left carotid endarterectomy with patch angioplasty. BP well controlled overnight. Past Medical History: Diagnosis Date Arthritis BPH (benign prostatic hyperplasia) Essential hypertension GERD (gastroesophageal reflux disease) tums prn Syncope and collapse Past Surgical History: Procedure Laterality Date Carotid Endarterectomy Left 11/26/2023 Left; LEFT CAROTID ENDARTERECTOMY, cerebral oximetry monitoring and patch closure COLONOSCOPY WITH POLYPECTOMY Fracture Repair Right right arm ORIF PROSTATE BIOPSY, NEEDLE Septoplasty Tonsillectomy Bilateral Scheduled Medications: 0.9% NaCl 3 mL Intracatheter q8h acetaminophen 650 mg Oral q6h heparin 5,000 Units Subcutaneous q8h pantoprazole 40 mg Intravenous QDAY Continuous Medications / Infusions: 0.9% NaCl IV, PRN Medications: 0.9% NaCl, 1-10 mL, PRN bisacodyl EC, 5 mg, QDAY PRN tyccslegft-lqfejqfluyvbl-cxuyqqcn, 1 tablet, BID PRN hydrALAZINE, 5 mg, q15 min PRN labetalol, 5 mg, q10 min PRN melatonin, 3 mg, AT BEDTIME PRN oxyCODONE (immediate release), 5 mg, q4h PRN Or oxyCODONE (immediate release), 10 mg, q4h PRN polyethylene glycol 3350, 17 g, QDAY PRN SUMAtriptan, 50 mg, QD PRN - MR X 1 Objective: Patient Vitals for the past 8 hrs: BP Temp Temp src Pulse Resp SpO2 11/27/23 0800 137/91 98.3 ??F (36.8 ??C) Oral 63 17 96 % 11/27/23 0700 133/89 -- -- 64 16 97 % 11/27/23 0600 127/81 -- -- 75 12 97 % 11/27/23 0500 141/90 -- -- 73 15 98 % 11/27/23 0411 -- -- -- 69 15 97 % 11/27/23 0404 -- -- -- 80 14 97 % 11/27/23 0400 106/78 -- -- 84 28 99 % 11/27/23 0300 125/87 -- -- 67 14 96 % 11/27/23 0230 135/87 -- -- -- -- -- 11/27/23 0200 139/84 -- -- 73 13 95 % 11/27/23 0100 -- -- -- 80 15 97 % Temp (24hrs), Av.1 ??F (36.7 ??C), Min:97.7 ??F (36.5 ??C), Max:98.3 ??F (36.8 ??C) Date 11/26/23699 - 11/27/2365811/27/23699 - 11/28/2359 Shift 9630-8830 2433-7001 24 Hour Total 4397-2783 6147-7186 24 Hour Total INTAKE I.V.(mL/kg/hr) 1500(1.7) 1500(0.8) Shift Total(mL/kg) 1500(20.4) 1500(20.4) OUTPUT Urine(mL/kg/hr) 350(0.4) 650(0.7) 1000(0.6) Drains 45 30 75 Shift Total(mL/kg) 395(5.4) 680(9.2) 1075(14.6) NET 1105 -680 425 Weight (kg) 73.7 73.7 73.7 73.7 73.7 73.7 Ventilator Data: Oxygen O2 % (FiO2): 21 % Physical Examination: BP 137/91 (BP Location: Left arm, Patient Position: Lying) Pulse 63 Temp 98.3 ??F (36.8 ??C) (Oral) Resp 17 Ht 1.854 m (6' 1 ) Wt 73.7 kg (162 lb 8 oz) SpO2 96% Examiner Attestation: Patient seen and examined. Resident note reviewed and discussed. I confirm the resident's documentation and findings except where revised on this note. Data Review: Hematology: Recent Labs Component Name 11/27/23 0711/26/23211911/23/23 1134 WBC 10.2 9.0 9.0 HGB 11.2* 11.1* 13.5 HCT 31.7* 31.5* 38.5* PLTCOUNT 170 166 197 MCV 93.0 92.9 94.1 MCH 32.8 32.7 33.0 MCHC 35.3 35.2 35.1 Chemistry: Recent Labs Component Name 11/27/23 0716 11/26/23211911/23/23 1134 NA 133* 134* 139 POTASSIUM 3.9 4.3 4.2 CL 105 106 106 CO2 18* 17* 23 ANIONGAP 10 11 10 BUN 22 21 29* CREATININE 1.24* 1.26* 1.44* EGFR 62* 61* 52* GLUCOSE 126* 106 90 CALCIUM 8.7 8.8 9.4 MAGNESIUM - 1.8 - PHOS - 4.0 - BCR 18 17 20 OSMOLALITY 281 281 293 Point of Care: No results for input(s): [id number] in the last 89722 hours. Liver and Pancreatic Function: No results for input(s): PROT , ALB , DBILI , TBILI , ALT , AST , ALKPHOS , USHA , LIPASE in the last 65668 hours. Coagulation: Recent Labs Component Name 11/23/23 1134 08/02/22 1206 PT 13.2 12.7 INR 1.0 1.0 PTT 33.1 - Cardiac Enzymes: No results for input(s): CKMB , CKTOTAL , TROPONINI , CK , TROPIHS , TROPIHSSNGL , DELTATNIBASE in the last 73175 hours. Arterial Blood Gas: Recent Labs Component Name 11/26/23 0827 PH 7.33* PCO2 43 PO2 241* THO1UWD 22.7 BE -3.2* Drug Levels: No results for input(s): TACROLIMUS , VANCTROUGH , DIGOXIN in the last 94131 hours. Virology/Bacteriology: No results for input(s): SARSCOV2 , RINFLUANAA , RINFLUBNAA , MRSADPCR in the last 72279 hours. Blood Bank: Recent Labs Component Name 11/26/23 0614 11/23/23 1134 ABORH O POS O POS ABSCG NEG NEG Urine: Recent Labs Component Name 08/02/22 1206 LABSPEC 1.011 Assessment / Plan: RESPIRATORY: Acute postop pulmonary insufficiency : Supplemental O2 as needed - wean as able. Aggressive pulmonary toilet. IS and CPT as able. Bronchodilators as needed. CARDIOVASCULAR: Anemia of acute blood loss : BP well-controlled at this time. Hb 11.2. Will follow closely. On asa and statin at home. Drain removed. May d/c a-line. GI: At nutrition risk : Now on regular diet. ENDOCRINE: SSI if needed. RENAL: CKD : Uop adequate elizabeth-operatively. No Campos. Continue IVF - august d/c when taking po well. Cr 05/09. NEURO Pain following procedure : Supportive care. Pain well controlled at this time. Wean meds as appropriate. On Imitrex at home. INFECTIOUS DISEASE: No current issues : No abx at this time. Afebrile, WBC 10.2 Additional Information: ICU patient safety bundle related interventions reviewed: Ventilatory Associated Pneumonia Prevention: N/A Central Line: No Skin Integrity: Yes DVT Prophylaxis: Yes SRMD Prophylaxis: Yes Campos: No FAST HUGS topics reviewed: Feeding/Fluids: Yes Analgesia: Yes Sedation: N/A Thromboprophylaxis: Yes Head Up Position: Yes Ulcer Prophylaxis: Yes Glycemic Control: Yes Spontaneous Breathing Trial: N/A The patient requires ongoing therapy with frequent assessment of both treatments and the physiological status of critical organ systems to either maintain failing vital organ systems or to prevent untreatable catastrophic failure of vital organs. The present set of clinical problems have a high likelihood of sudden deterioration or life threatening decline of vital organs associated with significant morbidity and involves high complexity decision making to assess, manipulate, and support vital systems function. Discontinuation of either therapies, or advanced physiological and clinical monitoring, poses a significant threat of prolonged morbidity, or more likely mortality. Critical Care 30-74 minutes: 33 mins (Time involved in the performance of separately billable procedures, teaching, or reviewing educational material was not counted towards critical care time.) Derrick Bush MD, [facility] 11/27/2023 8:57 AM * Kaity Almeida RN - 11/27/2023 5:24 AM CDT Problem: Tobacco Use Goal: Inpatient tobacco-use cessation counseling participation 11/27/2023522 by Kaity Almeida RN Outcome: Progressing 11/27/2023521 by Kaity Almeida RN Outcome: Progressing Problem: Pain/Discomfort Goal: Patient exhibits reduced pain/discomfort as evidenced by pain scores 11/27/2023522 by Kaity Almeida RN Outcome: Progressing 11/27/2023521 by Kaity Almeida RN Outcome: Progressing Goal: Patient uses pharmacological and non-pharmacological pain management strategies. 11/27/2023522 by Kaity Almeida RN Outcome: Progressing 11/27/2023 0522 by Kaity Almeida RN Outcome: Progressing Goal: Patient verbalizes acceptable level of pain relief and ability to engage in desired activity. 11/27/2023 0523 by Kaity Almeida RN Outcome: Progressing 11/27/2023 0522 by Kaity Almeida RN Outcome: Progressing * Kaity Almeida RN - 11/27/2023 5:23 AM CDT Problem: Tobacco Use Goal: Inpatient tobacco-use cessation counseling participation Outcome: Progressing Problem: Pain/Discomfort Goal: Patient exhibits reduced pain/discomfort as evidenced by pain scores Outcome: Progressing Goal: Patient uses pharmacological and non-pharmacological pain management strategies. Outcome: Progressing Goal: Patient verbalizes acceptable level of pain relief and ability to engage in desired activity. Outcome: Progressing * Kaity Almeida RN - 11/27/2023 5:08 AM CDT Regarding overnight VS, Mr. Turcios's [place] has shown lower BP's off and on, during these periods he is sleeping on his side and with arms bent causing low BP's that are inaccurate. BP cuff is on hisright arm giving Q30min readings, which are WNL for this patient. * Andres Chowdhury MD - 11/27/2023 12:55 AM CDT Anesthesia Critical Care: Resident Brief Progress Note Liz Turcios was examined and their chart reviewed on rounds this evening. Interval History: - NAEON - adequate urine output Labs reviewed and electrolytes replaced accordingly Andres chowdhury MD Anesthesia Critical Care 11/27/23 12:56 AM * Yan Cordova MD - 11/26/2023 4:33 PM CDT Vascular Surgery Post Op Check 11/26/2023 Admit: 11/26/2023 5:33 AM Hospital Day: 1 POD: Day of Surgery NAME: Liz Turcios Subjective: Patient returns from the OR after undergoing left carotid endarterectomy. Patient states that pain is well controlled with current regimen. Patient denies numbness/tingling, weakness, or any other complaints. Drain in L neck with 45 cc SS output. Objective: BP 133/85 Pulse 85 Temp 98 ??F (36.7 ??C) (Temporal) Resp 13 Ht 1.854 m (6' 1 ) Wt 73.7 kg (162 lb 8 oz) SpO2 95% Physical Exam: Gen: Alert and oriented, NAD ENT: Head atraumatic, drain in L neck holding suction Resp: unlabored breathing on RA CV: RRR, pulse 2+ Abd: Soft, nontender, nondistended MSK: WWP, no c/c/e, equal strength and sensation in bilateral upper and lower extremities Neuro: Moving all extremities, no focal deficits. CN grossly II-XII intact Psych: Appropriate mood and affect Assessment Liz Turcios is a 73 year old male s/p L carotid endarterectomy . POD#0 Plan: Disposition: icu Anticoagulation: none Antiplatelet: aspirin Dvt ppx: okay for SQH Diet: sips with meds, ice chips Activity: strict bedrest Vascular check: q1 hours Head of bed: 30 degrees SBP: 140-160mmHg - Overall recovering well, continue post op care - L neck drain holding suction Yan Cordova MD Vascular Surgery 11/26/23 4:41 PM * Braden Jonas MD - 11/26/2023 12:53 PM CDT Vascular Surgery Post-Op Plan of Care Patient is s/p Left carotid endarterectomy. Disposition: icu Anticoagulation: none Antiplatelet: aspirin Dvt ppx: okay for SQH Diet: npo; sips with meds Activity: strict bedrest Vascular check: q1 hours Head of bed: 30 degrees SBP: 140-160mmHg No neurological deficits Left neck drain to bulb suction Braden Jonas MD Vascular Surgery 11/26/23 12:53 PM * Derrick Bush MD - 11/26/2023 11:22 AM CDT Images from the original note were not included. Admit Date: 11/26/2023 Hospital Day: 1 Subjective: Admission / Interval History: Per H&P: 73 year old male with PMHx of HTN, TIA, syncope who presents today for surgery. Patient was last seen in clinic on 11/14/23. There has been no new changes to medications, allergies or medical hx since then. NPO since midnight. Now s/p left carotid endarterectomy with patch angioplasty. Currently recovering in the PACU while awaiting an ICU room. Past Medical History: Diagnosis Date Arthritis BPH (benign prostatic hyperplasia) Essential hypertension GERD (gastroesophageal reflux disease) tums prn Syncope and collapse Past Surgical History: Procedure Laterality Date COLONOSCOPY WITH POLYPECTOMY Fracture Repair Right right arm ORIF PROSTATE BIOPSY, NEEDLE Septoplasty Tonsillectomy Bilateral Scheduled Medications: 0.9% NaCl 3 mL Intracatheter q8h acetaminophen 650 mg Oral q6h albuterol 2.5 mg Inhalation post-OP multiple heparin 5,000 Units Subcutaneous q8h hydrALAZINE 5 mg Intravenous post-OP multiple labetalol 5 mg Intravenous post-OP multiple naloxone 0.04 mg Intravenous post-OP multiple Continuous Medications / Infusions: 0.9% NaCl IV, lactated ringers, , Last Rate: 1,000 mL (11/26/23 0628) lactated ringers, PRN Medications: 0.9% NaCl, 1-10 mL, PRN diphenhydrAMINE, 25 mg, Once PRN fentaNYL (PF), 25 mcg, q10 min PRN fentaNYL (PF), 50 mcg, q10 min PRN HYDROmorphone, 0.5 mg, q10 min PRN ondansetron, 4 mg, Once PRN prochlorperazine, 10 mg, Once PRN Objective: Patient Vitals for the past 8 hrs: BP Temp Temp src Pulse Resp SpO2 Height Weight 11/26/23 1110 -- -- -- 76 14 95 % -- -- 11/26/23 1105 -- -- -- 77 14 95 % -- -- 11/26/23 1100 132/81 -- -- 81 14 94 % -- -- 11/26/23 1055 -- -- -- -- -- 96 % -- -- 11/26/23 1050 -- -- -- -- -- 94 % -- -- 11/26/23 1045 131/80 -- -- 79 13 95 % -- -- 11/26/23 1040 -- -- -- -- -- 95 % -- -- 11/26/23 1035 135/77 -- -- 79 14 95 % -- -- 11/26/23 1030 136/83 98 ??F (36.7 ??C) -- 81 12 98 % -- -- 11/26/23 1025 145/87 -- -- 75 14 100 % -- -- 11/26/23 1020 154/97 -- -- 84 15 100 % -- -- 11/26/23 1015 (!) 165/103 98 ??F (36.7 ??C) Temporal 87 -- 100 % -- -- 11/26/23 0700 (!) 145/104 -- -- 64 15 97 % -- -- 11/26/23 0645 (!) 154/113 -- -- 64 19 97 % -- -- 11/26/23 0615 (!) 172/110 -- -- 61 17 98 % -- -- 11/26/23 0610 (!) 174/115 97.9 ??F (36.6 ??C) Oral 62 16 98 % 1.854 m (6' 1 ) 73.7 kg (162 lb 8 oz) Temp (24hrs), Av ??F (36.7 ??C), Min:97.9 ??F (36.6 ??C), Max:98 ??F (36.7 ??C) Date 11/25/23 0700 - 11/26/23 0659(Not Admitted) 11/26/23 0700 - 11/27/23 0659 Shift 1126-3623 7656-2559 24 Hour Total 0795-5021 2282-3750 24 Hour Total INTAKE I.V. 1500 1500 Shift Total(mL/kg) 1500(20.4) 1500(20.4) OUTPUT Shift Total(mL/kg) NET 1500 1500 Weight (kg) 73.7 73.7 73.7 73.7 73.7 Ventilator Data: Oxygen O2 % (FiO2): 45 % Physical Examination: BP 132/81 Pulse 76 Temp 98 ??F (36.7 ??C) Resp 14 Ht 1.854 m (6' 1 ) Wt 73.7 kg (162 lb 8oz) SpO2 95% Examiner Attestation: Patient seen and examined. Resident note reviewed and discussed. I confirm the resident's documentation and findings except where revised on this note. Data Review: Hematology: Recent Labs Component Name 11/23/23 1134 08/02/22 1206 WBC 9.0 8.0 HGB 13.5 15.2 HCT 38.5* 43.7 PLTCOUNT 197 202 MCV 94.1 94.6 MCH 33.0 32.9 MCHC 35.1 34.8 Chemistry: Recent Labs Component Name 11/23/23 1134 08/02/22 1206 07/03/22 1104 NA 139 136 - POTASSIUM 4.2 4.0 - CL 106 103 - CO2 23 25 - ANIONGAP 10 12 - BUN 29* 18 - CREATININE 1.44* 1.00 - EGFR 52* 80* 59* GLUCOSE 90 90 - CALCIUM 9.4 9.6 - BCR 20 18 - OSMOLALITY 293 283 - Point of Care: No results for input(s): [id number] in the last 97857 hours. Liver and Pancreatic Function: No results for input(s): PROT , ALB , DBILI , TBILI , ALT , AST , ALKPHOS , USHA , LIPASE in the last 54991 hours. Coagulation: Recent Labs Component Name 11/23/234 08/02/22 1206 PT 13.2 12.7 INR 1.0 1.0 PTT 33.1 - Cardiac Enzymes: No results for input(s): CKMB , CKTOTAL , TROPONINI , CK , TROPIHS , TROPIHSSNGL , DELTATNIBASE in the last 61750 hours. Arterial Blood Gas: Recent Labs Component Name 11/26/23 0827 PH 7.33* PCO2 43 PO2 241* [id number] 22.7 BE -3.2* Drug Levels: No results for input(s): TACROLIMUS , VANCTROUGH , DIGOXIN in the last 03262 hours. Virology/Bacteriology: No results for input(s): SARSCOV2 , RINFLUANAA , RINFLUBNAA , MRSADPCR in the last 62817 hours. Blood Bank: Recent Labs Component Name 11/26/23 0614 11/23/23 1134 ABORH O POS O POS ABSCG NEG NEG Urine: Recent Labs Component Name 08/02/22 1206 LABSPEC 1.011 Assessment / Plan: RESPIRATORY: Acute postop pulmonary insufficiency : Supplemental O2 as needed - wean as able. Aggressive pulmonary toilet. IS and CPT as able. Bronchodilators as needed. CARDIOVASCULAR: Anemia of acute blood loss : BP well-controlled at this time. Hb pending post-op. Will follow closely. On asa and statin at home. A-line and drain in place. GI: At nutrition risk : Anticipate diet soon. ENDOCRINE: SSI if needed. RENAL: CKD : Uop adequate elizabeth-operatively. No Campos. Continue IVF. Cr pending post-op. NEURO Pain following procedure : Supportive care. Pain well controlled at this time. Wean meds as appropriate. On Imitrex at home. INFECTIOUS DISEASE: No current issues : No abx at this time. Afebrile, WBC pending post-op. Additional Information: ICU patient safety bundle related interventions reviewed: Ventilatory Associated Pneumonia Prevention: N/A Central Line: No Skin Integrity: Yes DVT Prophylaxis: Yes SRMD Prophylaxis: Yes Campos: No FAST HUGS topics reviewed: Feeding/Fluids: Yes Analgesia: Yes Sedation: N/A Thromboprophylaxis: Yes Head Up Position: Yes Ulcer Prophylaxis: Yes Glycemic Control: Yes Spontaneous Breathing Trial: N/A The patient requires ongoing therapy with frequent assessment of both treatments and the physiological status of critical organ systems to either maintain failing vital organ systems or to prevent untreatable catastrophic failure of vital organs. The present set of clinical problems have a high likelihood of sudden deterioration or life threatening decline of vital organs associated with significant morbidity and involves high complexity decision making to assess, manipulate, and support vital systems function. Discontinuation of either therapies, or advanced physiological and clinical monitoring, poses a significant threat of prolonged morbidity, or more likely mortality. Critical Care 30-74 minutes: 32 mins (Time involved in the performance of separately billable procedures, teaching, or reviewing educational material was not counted towards critical care time.) Derrick Bush MD, [facility] 11/26/2023 11:23 AM documented in this encounter H&P Notes * Herminia Howe MD - 11/26/2023 6:08 AM CDT VASCULAR SURGERY HISTORY & PHYSICAL EXAM 11/26/2023 NAME: Liz Turcois AGE: [age] year old : 1950 HISTORY OF PRESENT ILLNESS 73 year old male with PMHx of HTN, TIA, syncope who presents today for surgery. Patient was last seen in clinic on 11/14/23. There has been no new changes to medications, allergies or medical hx sincethen. NPO since midnight. PAST MEDICAL HISTORY Past Medical History: Diagnosis Date Arthritis BPH (benign prostatic hyperplasia) Essential hypertension GERD (gastroesophageal reflux disease) tums prn Syncope and collapse PAST SURGICAL HISTORY Past Surgical History: Procedure Laterality Date COLONOSCOPY WITH POLYPECTOMY Fracture Repair Right right arm ORIF PROSTATE BIOPSY, NEEDLE Septoplasty Tonsillectomy Bilateral FAMILY HISTORY Family History Problem Relation Name Age of Onset Diabetes; unknown type Mother Other - Cardiac Father Cancer - Lung Sister Other - Cardiac Brother SOCIAL HISTORY Social History Tobacco Use Smoking status: Every Day Packs/day: 1.00 Years: 18.00 Additional pack years: 0.00 Total pack years: 18.00 Types: Cigarettes Smokeless tobacco: Never Vaping Use Vaping Use: Never used Substance Use Topics Alcohol use: Yes Alcohol/week: 14.0 standard drinks of alcohol Types: 14 Glasses of wine per week Comment: couple glasses of wine a day Drug use: Not Currently Types: Marijuana Comment: pot daily, one hitter ALLERGIES No Known Allergies MEDICATIONS No current facility-administered medications on file prior to encounter. Current Outpatient Medications on File Prior to Encounter Medication Sig Dispense Refill SUMAtriptan (Imitrex) 50 MG tablet TAKE 1 TABLET BY MOUTH FOR HEADACHE IF NO RELIEF REPEAT 1 TAB AFTER AT LEAST 2 HOURS, MAX 4 TABLETS PER DAY MEDICATIONS FOR CURRENT ENCOUNTER: SCHEDULED MEDICATIONS: PRN MEDICATIONS: REVIEW OF SYSTEMS (+ IN BOLD) Constitutional: weight loss, fatigue, weakness, fever, chills, night sweats Neurological: headaches, paresthesias HEENT: headache, visual changes Cardiovascular: chest pain, exertional dyspnea, hypertension Respiratory: shortness of breath, cough, wheeze Gastrointestinal: pain, nausea/vomiting MSK: joint pain, weakness, decreased ROM PHYSICAL EXAM Vitals: There were no vitals taken for this visit. Gen: NAD and A&O x 3 ENT: Normocephalic and EOMI Resp: unlabored breathing on RA CV: RRR Abd: Soft, Non-distended, and Non-peritoneal MSK: WWP, neurointact Psych: Appropriate mood and affect LABS Recent Labs Component Name 11/23/23 1134 08/02/22 1206 WBC 9.0 8.0 RBC 4.09* 4.62 HGB 13.5 15.2 HCT 38.5* 43.7 MCV 94.1 94.6 MCH 33.0 32.9 MCHC 35.1 34.8 RDW - 12.9 PLTCOUNT 197 202 Recent Labs Component Name 11/23/23 1134 POTASSIUM 4.2 CO2 23 BUN 29* CREATININE 1.44* GLUCOSE 90 CALCIUM 9.4 EGFR 52* IMAGING IR EMBOLIZATION TRANSCATH THPY Result Date: 08/18/2022 PROCEDURE: IR EMBOLIZATION TRANSCATH THPY DATE/TIME OF EXAM: 08/02/2022 4:55 PM CLINICAL INFORMATION: None relevant/not provided if blank. Indication: N40.1: Benign prostatic hyperplasia with urinary obstruction N13.8: Benign prostatic hyperplasia with urinary obstruction Additional History: History: Liz Mathis a 72 year oldmalereferred for prostate artery embolization. He was seen byDr. Yip [id number] for BPH with bothersome symptoms despite tamsulosin and finasteride. Underwent Rezum treatment 01/2019. Had improvement in symptoms for some time but then had worsening of his symptoms. He cites his most bothersome symptom as nocturia, but also reports weak stream and urgency t hat is worsened by running water and cold weather. He was referred for PAE consideration, as he prefers a minimally invasive approach that will preserveejaculatory and sexual function. In clinic ultrasound shows a ~ 64 gm prostate, IPSS 18, QOL 5. . Patient is here for prostate artery embolization O perators: 1.Dr. Loving, Attending Physician Anesthesia: 1.Local anesthesia - 10 mL of 1% lidocaineSedation:Versed:3mg, Fentanyl: 150mcg Sedation start time:1440hours Procedure start [...] draped in the usual sterile fashion. A pricing associate film of pelvis wasobtained, which was unremarkable. The patient received intravenous Versed and Fentanyl for conscious sedation. A qualified radiology nurse monitored the patients vital signs throughout the procedure.Limited ultrasound of the right common femoral artery demonstrated a patent vessel. The take off of the profunda was identified. A powers scale image was documented. The right common femoral artery wasaccessed using a micro-puncture needle. The needle entry was documented. Following a series of exchanges, a 5.5-Indonesian vascular sheath was placed. The left internal iliac artery was catheterized witha 5 Fr PPC cathter and angiogram was [...] the left prostate artery confirmed satisfactory stasis. Using the 5 Fr PPC cathter and multiple other catheters and guidewire combinations attempts were made to access the right internal iliac artery. An angiogram was performed which showed severe stenosis of the right internal iliac artery . Multiple attempts to catheterize inferior. The procedure was terminated A sheath angiogram of the right commonfemoral artery was unremarkable with femoral access away from the profunda femoris. Hemostasis was achieved with Angioseal closure device. A sterile dressing was applied. The patient tolerated the procedure well and was transferred to the holding area in stable condition. There were no immediate complications associated with the procedure. Impression: Successful unilateral, left prostate artery embolization, as described above. The rightinternal iliac artery could not be cannulated to severe stenosis at the origin. Sulci the patient in clinic in 3 months and if that is improvement he can reschedule for another attempt at right prostatic artery embolization Dr. Loving performed/was present throughout the procedure and provided themoderate sedation service. Please see the nursing sedation flowsheet. > Interpreting Provider: Calvin Loving MD on 08/18/2022 1:57 PM ASSESSMENT & PLAN 73 year old male with asymptomatic carotid stenosis and string sign on left presenting today for surgery. Pt to proceed to OR today for left carotid endarterectomy (Dr. Howe) Risks and benefits of the procedure include but are not limited to: bleeding, infection, pain, damage to surrounding structures, need for additional procedures, recurrent symptoms NPO for surgery Patient has been marked Consent is signed and in the chart Okay to proceed to OR as scheduled Pascual Stevens MD Vascular Surgery 11/26/23 6:08 AM Attending/Teaching Physician Documentation I have seen and examined the patient with the resident, independently reviewed lab and imaging results and I agree with the findings and plan of care as documented by the resident. Date of Service isdate of resident signature in resident note * Herminia Howe MD - 11/26/2023 4:58 AM CDT VASCULAR SURGERY HISTORY & PHYSICAL EXAM 11/26/2023 NAME: Liz Turcios AGE: [age] year old : 1950 HISTORY OF PRESENT ILLNESS 73 year old male with PMHx of HTN, TIA, syncope who presents today for surgery. Patient was last seen in clinic on 11/14/23. There has been no new changes to medications, allergies or medical hx sincethen. NPO since midnight. PAST MEDICAL HISTORY Past Medical History: Diagnosis Date Arthritis BPH (benign prostatic hyperplasia) Essential hypertension GERD (gastroesophageal reflux disease) tums prn Syncope and collapse PAST SURGICAL HISTORY Past Surgical History: Procedure Laterality Date COLONOSCOPY WITH POLYPECTOMY Fracture Repair Right right arm ORIF PROSTATE BIOPSY, NEEDLE Septoplasty Tonsillectomy Bilateral FAMILY HISTORY Family History Problem Relation Name Age of Onset Diabetes; unknown type Mother Other - Cardiac Father Cancer - Lung Sister Other - Cardiac Brother SOCIAL HISTORY Social History Tobacco Use Smoking status: Every Day Packs/day: 1.00 Years: 18.00 Additional pack years: 0.00 Total pack years: 18.00 Types: Cigarettes Smokeless tobacco: Never Vaping Use Vaping Use: Never used Substance Use Topics Alcohol use: Yes Alcohol/week: 14.0 standard drinks of alcohol Types: 14 Glasses of wine per week Comment: couple glasses of wine a day Drug use: Not Currently Types: Marijuana Comment: pot daily, one hitter ALLERGIES No Known Allergies MEDICATIONS No current facility-administered medications on file prior to encounter. Current Outpatient Medications on File Prior to Encounter Medication Sig Dispense Refill SUMAtriptan (Imitrex) 50 MG tablet TAKE 1 TABLET BY MOUTH FOR HEADACHE IF NO RELIEF REPEAT 1 TAB AFTER AT LEAST 2 HOURS, MAX 4 TABLETS PER DAY MEDICATIONS FOR CURRENT ENCOUNTER: SCHEDULED MEDICATIONS: No current facility-administered medications for this encounter. PRN MEDICATIONS: No current facility-administered medications for this encounter. REVIEW OF SYSTEMS (+ IN BOLD) Constitutional: weight loss, fatigue, weakness, fever, chills, night sweats Neurological: headaches, paresthesias, tremors, syncope, seizures HEENT: headache, visual changes, hearing loss, ear/throat pain, epistaxis Cardiovascular: chest pain, exertional dyspnea, hypertension Respiratory: shortness of breath, cough, wheeze, sputum Gastrointestinal: pain, nausea/vomiting, hematemesis, hematochezia Hematologic: anemia, petechiae MSK: joint pain, weakness, decreased ROM Endocrine: hypothyroidism, hyperthyroidism, diabetes PHYSICAL EXAM Vitals: There were no vitals taken for this visit. Gen: NAD and A&O x 3 ENT: Normocephalic and EOMI Resp: unlabored breathing on RA CV: RRR Abd: Soft, Non-distended, and Non-peritoneal, no rebound/guarding MSK: WWP, neurointact Psych: Appropriate mood and affect LABS Recent Labs Component Name 11/23/23 1134 08/02/22 1206 WBC 9.0 8.0 RBC 4.09* 4.62 HGB 13.5 15.2 HCT 38.5* 43.7 MCV 94.1 94.6 MCH 33.0 32.9 MCHC 35.1 34.8 RDW - 12.9 PLTCOUNT 197 202 Recent Labs Component Name 11/23/23 1134 POTASSIUM 4.2 CO2 23 BUN 29* CREATININE 1.44* GLUCOSE 90 CALCIUM 9.4 EGFR 52* IMAGING IR EMBOLIZATION TRANSCATH THPY Result Date: 08/18/2022 PROCEDURE: IR EMBOLIZATION TRANSCATH THPY DATE/TIME OF EXAM: 08/02/2022 4:55 PM CLINICAL INFORMATION: None relevant/not provided if blank. Indication: N40.1: Benign prostatic hyperplasia with urinary obstruction N13.8: Benign prostatic hyperplasia with urinary obstruction Additional History: History: Liz Mathis a 72 year oldmalereferred for prostate artery embolization. He was seen byDr. Yip [id number] for BPH with bothersome symptoms despite tamsulosin and finasteride. Underwent Rezum treatment 01/2019. Had improvement in symptoms for some time but then had worsening of his symptoms. He cites his most bothersome symptom as nocturia, but also reports weak stream and urgency t hat is worsened by running water and cold weather. He was referred for PAE consideration, as he prefers a minimally invasive approach that will preserveejaculatory and sexual function. In clinic ultrasound shows a ~ 64 gm prostate, IPSS 18, QOL 5. . Patient is here for prostate artery embolization O perators: 1.Dr. Loving, Attending Physician Anesthesia: 1.Local anesthesia - 10 mL of 1% lidocaineSedation:Versed:3mg, Fentanyl: 150mcg Sedation start time:1440hours Procedure start [...] draped in the usual sterile fashion. A pricing associate film of pelvis wasobtained, which was unremarkable. The patient received intravenous Versed and Fentanyl for conscious sedation. A qualified radiology nurse monitored the patients vital signs throughout the procedure.Limited ultrasound of the right common femoral artery demonstrated a patent vessel. The take off of the profunda was identified. A powers scale image was documented. The right common femoral artery wasaccessed using a micro-puncture needle. The needle entry was documented. Following a series of exchanges, a 5.5-Indonesian vascular sheath was placed. The left internal iliac artery was catheterized witha 5 Fr PPC cathter and angiogram was [...] the left prostate artery confirmed satisfactory stasis. Using the 5 Fr PPC cathter and multiple other catheters and guidewire combinations attempts were made to access the right internal iliac artery. An angiogram was performed which showed severe stenosis of the right internal iliac artery . Multiple attempts to catheterize inferior. The procedure was terminated A sheath angiogram of the right commonfemoral artery was unremarkable with femoral access away from the profunda femoris. Hemostasis was achieved with Angioseal closure device. A sterile dressing was applied. The patient tolerated the procedure well and was transferred to the holding area in stable condition. There were no immediate complications associated with the procedure. Impression: Successful unilateral, left prostate artery embolization, as described above. The rightinternal iliac artery could not be cannulated to severe stenosis at the origin. Sulci the patient in clinic in 3 months and if that is improvement he can reschedule for another attempt at right prostatic artery embolization Dr. Loving performed/was present throughout the procedure and provided themoderate sedation service. Please see the nursing sedation flowsheet. > Interpreting Provider: Calvin Loving MD on 08/18/2022 1:57 PM ASSESSMENT & PLAN 73 year old male with asymptomatic carotid stenosis and string sign on left presenting today for surgery. Pt to proceed to OR today for left carotid endarterectomy (Dr. Howe) Risks and benefits of the procedure include but are not limited to: bleeding, infection, pain, damage to surrounding structures, need for additional procedures, recurrent symptoms NPO for surgery Patient has been marked Consent is signed and in the chart Okay to proceed to OR as scheduled Yan Cordova MD Vascular Surgery 11/26/23 5:03 AM Attending/Teaching Physician Documentation I have seen and examined the patient with the resident, independently reviewed lab and imaging results and I agree with the findings and plan of care as documented by the resident. Pt still having fogginess from prior neuro event. Again, discussed that this procedure is not expected to change this. Goal for left carotid endarterectomy is to prevent future stroke. Risks of intervention ncluding but not limited bleeding, infection, ID, , stroke described. Pt wishes to proceed. Date of Service is date of resident signature in resident note documented in this encounter Consult Notes * Carlos Enrique Braswell MD - 11/26/2023 12:30 PM CDT Images from the original note were not included. [facility] Anesthesia Critical Care Service Consultation for Co-Management Liz Turcios Age: [age] year old Date of : 1950 Date of Admission: 11/26/2023 Hospital Day: 1 Reason for consult: Critical Care Requesting physician Dr. Howe, Vascular Surgery Chief Complaint: Admission: Liz Turcios is a 73 year old male who presents today for surgery for incidentally found left carotid stenosis on CT scan during workup for syncopal episodes. Patient reports that in the last 6 years, he has had 7 episodes where he becomes lightheaded and diaphoretic prior to passing out. Denies any symptoms of stroke or any vision changes. Reports a >50 yr hx of smoking, stopped drinking alcohol 3 months ago. CTA demonstrates string sign on the left with diminutive left ICA following stenosis suggestive of chronic disease. PMHx is otherwise significant for HTN (no medication), TIA (no deficits), palpitations (nuclear stress test in 2019 @ OSH, unremarkable, EF: 62%), lung fibrosis (no inhalers, breathing @ baseline) and BPH (s/p unilateral prostate artery embolization in 2022). Primary dx: Stenosis of Left Carotid Artery. Surgical Procedure: Left carotid endarterectomy , EBL: 100cc, PRBC: none, UoP: none, Crystalloid: 1500cc, Colloid: none Indication for ICU admission: Vascular checks q1hr History obtained from electronic medical record. Past Medical History: Past Medical History: Diagnosis Date Arthritis BPH (benign prostatic hyperplasia) Essential hypertension GERD (gastroesophageal reflux disease) tums prn Syncope and collapse Past Surgical History: Past Surgical History: Procedure Laterality Date COLONOSCOPY WITH POLYPECTOMY Fracture Repair Right right arm ORIF PROSTATE BIOPSY, NEEDLE Septoplasty Tonsillectomy Bilateral Social History: Social History Socioeconomic History Marital status: Single Spouse name: Not on file Number of children: Not on file Years of education: Not on file Highest education level: Not on file Occupational History Not on file Tobacco Use Smoking status: Every Day Packs/day: 1.00 Years: 18.00 Additional pack years: 0.00 Total pack years: 18.00 Types: Cigarettes Smokeless tobacco: Never Vaping Use Vaping Use: Never used Substance and Sexual Activity Alcohol use: Yes Alcohol/week: 14.0 standard drinks of alcohol Types: 14 Glasses of wine per week Comment: couple glasses of wine a day Drug use: Not Currently Types: Marijuana Comment: pot daily, one hitter Sexual activity: Not on file Other Topics Concern Not on file Social History Narrative Not on file Social Determinants of Health Financial Resource Strain: Not on file Food Insecurity: Not on file Transportation Needs: Not on file Stress: Not on file Housing Stability: Not on file Family History: Family History Problem Relation Name Age of Onset Diabetes; unknown type Mother Other - Cardiac Father Cancer - Lung Sister Other - Cardiac Brother Allergies: No Known Allergies Medications: Prior to Admission medications Medication Sig Start Date End Date Taking? Authorizing Provider aspirin (Aspirin) 81 MG chew tablet Take 1 (one) tablet by mouth once daily Yes Merly Monson MD [id number] 250-250-65 MG tablet Take 1 (one) tablet by mouth every 4 hours as needed for Headache Yes Merly Monson MD atorvastatin (Lipitor) 40 MG tablet Take 1 (one) tablet by mouth once daily 10/31/23 Yes Merly Monson MD ibuprofen (Motrin) 200 MG tablet Take 1 (one) tablet by mouth as needed for Pain Yes Merly Monson MD multivitamin daily tablet Take 1 (one) tablet by mouth daily with food Yes Merly Monson MD SUMAtriptan (Imitrex) 50 MG tablet TAKE 1 TABLET BY MOUTH FOR HEADACHE IF NO RELIEF REPEAT 1 TAB AFTER AT LEAST 2 HOURS, MAX 4 TABLETS PER DAY 11/05/23 Yes Merly Monson MD Current Facility-Administered Medications Medication 0.9% NaCl infusion 0.9% NaCl injection 3 mL And 0.9% NaCl injection 1-10 mL acetaminophen (Tylenol) tablet 650 mg albuterol (Proventil;Ventolin) (5 MG/ML) 0.5% nebulizer solution 2.5 mg diphenhydrAMINE (Benadryl) injection 25 mg fentaNYL (PF) (Sublimaze) injection 25 mcg fentaNYL (PF) (Sublimaze) injection 50 mcg heparin injection 5,000 Units hydrALAZINE (Apresoline) injection 5 mg HYDROmorphone (Dilaudid) injection 0.5 mg labetalol (Normodyne; Trandate) injection 5 mg lactated ringers infusion naloxone (Narcan) injection 0.04 mg ondansetron (Zofran) injection 4 mg pantoprazole (Protonix) injection 40 mg prochlorperazine (Compazine) injection 10 mg Review of Systems: Review of Systems - positive findings in BOLD General: fever/chills, malaise, weight loss Head: headache, lightheadedness Eyes: vision changes, double or blurry vision Mouth: dry mouth, sore throat Respiratory: cough, hemoptysis, shortness of breath, dyspnea on exertion Cardiovascular: chest pain, palpitations, arrhythmia GI: abdominal pain, nausea/vomiting, changes in bowel habits, blood in stool : dysuria, hematuria, frequency Extremities: joint pain, muscle pain Neurological: focal deficits, new numbness/tingling, tremor Skin: rash Physical Exam: Date 11/25/23699 - 11/26/23 0659(Not Admitted) 11/26/23699 - 11/27/23 0659 Shift 5330-3923 5464-8259 24 Hour Total 8238-5015 6418-6597 24 Hour Total INTAKE I.V. 1500 1500 Shift Total(mL/kg) 1500(20.4) 1500(20.4) OUTPUT Shift Total(mL/kg) NET 1500 1500 Weight (kg) 73.7 73.7 73.7 73.7 73.7 BP 113/73 (BP Location: Left arm) Pulse 76 Temp 97.7 ??F (36.5 ??C) (Temporal) Resp 10 Ht 1.854 m (6' 1 ) Wt 73.7 kg (162 lb 8 oz) SpO2 96% General appearance: awake, alert, NAD HEENT: normocephalic, atraumatic, EOMI, no scleral icterus or injection, left neck incision c/d/i with PRICILA drain in place, moist mucous membranes, no masses, no JVD, no LAD CV: RRR, normal S1 and S2, no murmurs, 2/4 radial pulses Chest: CTAB, no wheezes, rhonchi or crackles Abdomen: non-distended, bowel sounds normal, soft, non-tender, no organomegaly Extremities: No edema, no clubbing, no cyanosis Skin: Warm and dry, no new rash Neurological: A&Ox 4, following commands, no focal deficits Data: Hematology: Recent Labs Component Name 11/23/23 1134 08/02/22 1206 WBC 9.0 8.0 HGB 13.5 15.2 HCT 38.5* 43.7 PLTCOUNT 197 202 MCV 94.1 94.6 MCH 33.0 32.9 MCHC 35.1 34.8 Chemistry: Recent Labs Component Name 11/23/23 1134 08/02/22 1206 07/03/22 1104 NA 139 136 - POTASSIUM 4.2 4.0 - CL 106 103 - CO2 23 25 - ANIONGAP 10 12 - BUN 29* 18 - CREATININE 1.44* 1.00 - EGFR 52* 80* 59* GLUCOSE 90 90 - CALCIUM 9.4 9.6 - BCR 20 18 - OSMOLALITY 293 283 - Point of Care Glucose No results for input(s): [id number] in the last 77098 hours. Liver and Pancreatic Function: No results for input(s): PROT , ALB , DBILI , TBILI , ALT , AST , ALKPHOS , USHA , AMYLASE , LIPASE in the last 08819 hours. Coagulation: Recent Labs Component Name 11/23/23 1134 08/02/22 1206 PT 13.2 12.7 INR 1.0 1.0 PTT 33.1 - Cardiac Enzymes: No results for input(s): CKMB , CKTOTAL , TROPONINI , CK , TROPIHS , TROPIHSSNGL , DELTATNIBASE in the last 51681 hours. Arterial Blood Gas: Recent Labs Component Name 11/26/23 0827 PH 7.33* PCO2 43 PO2 241* BIW6MNI 22.7 BE -3.2* Drug Levels: No results for input(s): TACROLIMUS , VANCTROUGH , DIGOXIN in the last 62359 hours. Virology/Bacteriology: No results for input(s): SARSCOV2 , RINFLUANAA , RINFLUBNAA , MRSADPCR in the last 02112 hours. Blood Bank: Recent Labs Component Name 11/26/23 0614 11/23/23 1134 ABORH O POS O POS ABSCG NEG NEG Urine: Recent Labs Component Name 08/02/22 1206 LABSPEC 1.011 Assessment & Plan: Neurologic: Acute Post-Operative Pain Prior TIA w/o Deficits Prior Alcohol Use Disorder, Quit 07/2023 Migraine Headaches - Monitor mental status every hour and notify physician of changes. - Restart home Fioricet at BID PO PRN dosing - Restart home sumatriptan at 50mg qday for migraines PRN - Pain Control: - Tylenol 650mg PO q6hrs scheduled - Oxycodone 5/10mg PO q4hrs PRN for moderate/severe pain Respiratory: Acute Pulmonary Insufficiency Tobacco Use Disorder - Supplemental O2 PRN to maintain SpO2 > 92% - Keep HOB elevated 30 degrees, mouth care, aspiration precautions. - Aggressive pulmonary toilet Cardiovascular: Stenosis of the Left Carotid Artery Essential Hypertension Hyperlipidemia S/p Left Carotid Endarterectomy with Patch Repair (11/25) - Hemodynamic monitoring: Left Radial Arterial Line - SBP goal 140-160 mmHg - Maintain MAP > 65 mmHg - Vascular Checks q1hr (Vascular Primary) - Holding home atorvastatin 40mg qday - Plan to restart ASA 81mg qday tomorrow (11/26) - Monitor PRICILA drain output Gastrointestinal: No Acute Concerns Gastroesophageal Reflux - Diet: NPO, Sips & Chips; Sips w/ Meds - SUP w/ Protonix 40mg IV qday scheduled - Bowel Regimen: - Bisacodyl 5mg PO qday PRN - MiraLAX 17g packet PO qday PRN Renal: No Acute Concerns Benign Prostatic Hyperplasia S/p Unilateral Prostate Artery Embolization (2022) - IVF w/ NS at 75cc/hr - Strict I&Os; Monitor UOP - Monitor electrolytes qday; replete as indicated Hematologic: Acute Blood Loss Anemia - Plan to restart ASA 81mg qday tomorrow (11/26) - DVT ppx w/ SCDs; SubQ Heparin 5000 units q8hrs - Monitor H&H qday - Transfusion Protocol: Hgb < 7, Plts < 50 Infections Diseases: No Acute Concerns - Monitor temperature w/ vitals - Monitor WBC qday Endocrine: No Acute Concerns - Monitor glucose levels - Consider SSI Prophylaxis: - GI Prophylaxis: Protonix - DVT Prophylaxis: SCDs; SubQ Heparin Activity: Per Primary Lines/Drains/Airways: - PIVs x2 - Left Radial Arterial Line (11/25 - Present) - Left Neck PRICILA Drain (11/25 - Present) Disposition: ICU management Code Status: TSL-1, Full Code Plan was discussed with Dr. Eleazar Braswell MD Anesthesia Critical Care, PGY-1 [facility] 11/26/2023 12:30 PM Associated attestation - Derrick Bush MD - 11/26/2023 5:42 PM CDT Patient seen and examined with critical care team in the PACU post-operatively (11/26/23). Agree with above. Please see daily note for additional information. Derrick Bush M.D. documented in this encounter OR Notes * Brief Op Note - Herminia Howe MD - 11/26/2023 8:00 AM CDT Brief Op Note Procedure: LEFT CAROTID ENDARTERECTOMY, cerebral oximetry monitoring and patch closure Patient Name: Liz Turcios Date of Service: 11/26/2023 Pre-Op Diagnosis: STENOSIS OF LEFT CAROTID ARTERY WITHOUT CEREBRAL INFARCTION [I65.22] Post-Op Diagnosis: same Surgeon(s) and Role: * Herminia Howe MD - Primary Nailer Machine(s): inocencio Anesthesia Type: general ETT Complications: none Findings: as expected EBL: 100 blood loss Urine Output : no IV Fluid Intake: not totalled 10 flat pricila drain placed Drains: Drain 1 Flat Bulb Anterior;Left Neck (Active) Specimen(s): ID Type Source Tests Collected by Time Destination A : Left Carotid Plaque Biopsy, Excision Soft Tissue, Other PATHOLOGY TISSUE Herminia Howe MD11/26/2023 0857 Implant(s): Implant Name Type Inv. Item Serial No. Construction Recruiter Lot No. LRB No. Used Action VASCU-GUARD peripheral Vascular Patch 1x6cm [id number] Left 1 Implanted Herminia Howe MD * Operative - Herminia Howe MD - 11/26/2023 12:00 AM CDT Operative Report NAME: LIZ TURCIOS : 1950 AGE: 73 PROC DATE: 11/26/2023 SEX: M SURGEON: Herminia Howe MD PREOPERATIVE DIAGNOSIS: Left carotid artery stenosis. POSTOPERATIVE DIAGNOSIS: Left carotid artery stenosis. OPERATION PERFORMED: Left carotid endarterectomy. SURGEON: Herminia Howe MD GUEST EXPERIENCE MANAGER: Dr. Braden Brooks REASON FOR PROCEDURE: Gentleman with prior stroke, noted to have a high-grade stenosis of the proximal left ICA. DESCRIPTION OF PROCEDURE: He was brought to the operating room. He was given general endotracheal anesthesia. He had cerebral oximetry patches placed on his forehead, prepped and draped in a sterile fashion. Incision was made on the anterior border of the sternocleidomastoid. Jugular vein was dissected free of the surrounding structures and retracted laterally after moving the sternocleidomastoidlaterally. Common facial vein was ligated using 2-0 silk suture as were two other small venous bleeding branches. Once this was done, the common carotid was encircled at the base of the neck using a Rumel tourniquet. Lateral dissection was taken up on the common to the internal carotid with great care being taken to avoid injury to the vagus nerve. It was noted that the bifurcation was quite high. We were able to visualize the digastric and the hypoglossal nerve and encircled the distal internal easily. The superior thyroid was encircled using a 2-0 silk suture, and the external was encircledusing a vessel loop. The patient was given 100 units/kg of heparin IV. Clamps were applied in the following order after 3 minutes and an ACT was greater than 280 seconds, and it was internal, external, and common. A longitudinal arteriotomy was then made, and a standard endarterectomy was performedto smooth tapering endpoint on the internal and eversion on the external. Bovine patch was cut to size. It should be noted also that the cerebral oximeter did not change with clamping. The distal patch was sewn in place using 6-0 Prolene running and the proximal was done with 5-0. Appropriate bleeding maneuvers were performed, and flow restored to the external for a count of 10 and then to the internal. There was one small area on the lateral aspect, which needed a single stitch of repair. A 10flat PRICILA drain was then placed at the base of the neck, and the wound was irrigated and closed usinginterrupted 2-0 Vicryl followed by 4-0 Monocryl. Sponge and needle count at the end of the procedure were correct. ESTIMATED BLOOD LOSS: 150 mL URINE OUTPUT AND INTRAVENOUS FLUIDS: Urine output not totaled neither was IV fluids. The patient moved all 4 extremities and obeyed commands prior to leaving the operating room. MD ROBYN Charles/dottie .[id number] .[id number] Doc ID: [id number] Voice Job ID: [id number] documented in this encounter Plan of Treatment Upcoming Encounters Date Type Department Care Team (Late st Contact Info) Description 07/23/2024 11:00 AM CDT Appointment [facility] [address] [place] [address] Herminia Howe MD [address] [place] [address] [address] [place] [phone] 07/23/2024 12:15 PM CDT Office Visit [facility] - Vascular Surgery [address] [place] [address], [place] [address] Herminia Howe MD [address] [place] [address] [address] [place] [address] documented as of this encounter Goals Goal Patient Goal Type Associated Problems Recent Progress Patient-Stated? Author Patient will adhere to medication regimen General On track( 023 8:59 AM CDT) Dari Gardner RN documented as of this encounter Procedures Procedure Name Priority Date/Time Associated Diagnosis Comments CBC W AUTO DIFFERENTIAL STAT 11/27/2023 7:16 AM CDT Carotid stenosis, asymptomatic, left BASIC METABOLIC PANEL (CALCIUM TOTAL) STAT 11/27/2023 7:16 AM CDT Carotid stenosis, asymptomatic, left CBC W/O DIFFERENTIAL STAT 11/26/2023 9:20 PM CDT Carotid stenosis, asymptomatic, left BASIC METABOLIC PANEL (CALCIUM TOTAL) STAT 11/26/2023 9:20 PM CDT Carotid stenosis, asymptomatic, left PHOSPHORUS BLOOD STAT 11/26/2023 9:20 PM CDT Carotid stenosis, asymptomatic, left MAGNESIUM BLOOD STAT 11/26/2023 9:20 PM CDT Carotid stenosis, asymptomatic, left ACT LR - POCT ([facility]) Routine 11/26/2023 10:49 AM CDT PATHOLOGY TISSUE Routine 11/26/2023 8:57 AM CDT Stenosis of left carotid artery without cerebral infarction BLOOD GAS+COOX+LYTES+META B ARTERIAL POCT Routine 11/26/2023 8:27 AM CDT ACT LR - POCT ([facility]) Routine 11/26/2023 8:27 AM CDT ACT LR - POCT ([facility]) Routine 11/26/2023 7:53 AM CDT ACT LR - POCT ([facility]) Routine 11/26/2023 7:25 AM CDT TX TEAEC W/PATCH GRF CRTD VRT SUBCLA NCK INC 11/26/2023 7:02 AM CDT Stenosis of left carotid artery without cerebral infarction Case Notes KW 11/20 Special Needs PER , PT TO CONTINUE HIS ASPIRIN WITH CEREBRAL OXIMETRY MONITORING TYPE + SCREEN PANEL STAT 11/26/2023 6 :14 AM CDT Stenosis of left carotid artery documented in this encounter Results * US AAA Screening (02/04/2024 2:54 PM CDT) Anatomical Region Laterality Modality Abdomen Ultrasound 02/04/2024 3:28 PM CDT Impressions 02/04/2024 6:06 PM CDT IMPRESSION: 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 > Dictated by Humza Chappell MD > Dictated by Humza Chappell MD (Damage Prevention Coordinator) 02/04/2024 3:28 PM IAgustin MD have personally reviewed and interpreted this examination/study. > Interpreting Provider: Agustin Noriega MD on 02/04/2024 6:06 PM Narrative 02/04/2024 6:06 PM CDT PROCEDURE: ??US AAA SCREENING, DATE/TIME OF EXAM: ??02/04/2024 2:54 PM, LOCATION ??[facility] INDICATION: R19.8: Pulsatile abdomen ADDITIONAL CLINICAL INFORMATION: [...] DATE/TIME OF EXAM: 02/04/2024 2:54 PM, LOCATION [facility] INDICATION: R19.8: Pulsatile abdomen ADDITIONAL CLINICAL INFORMATION: [...] MD > Dictated by Humza Chappell MD (Damage Prevention Coordinator) 02/04/2024 3:28 PM ITello. Jared Noriega MD have personally reviewed and interpreted this examination/study. > Interpreting Provider: Agustin Noriega MD on 02/04/2024 6:06 PM Violaellis Browne [employer] US ORDERABLES * VAS Carotid Duplex Bilateral (02/04/2024 1:49 PM CDT) Anatomical Region Laterality Modality Neck Intravascular Ul trasound 02/04/2024 1:22 PM CDT Narrative Procedure Note Jabari Williamson MD - 02/04/2024 Violaellis Aponteonald [facility] VASCULAR LAB O RDERABLES * (ABNORMAL) CBC W AUTO DIFFERENTIAL (11/27/2023 7:16 AM CDT) WBC 10.2 4.0 - 10.7 x10E9/L 11/27/2023 7:45 AM [facility] RBC Count 3.41(L) 4.30 - 5.80 x10E12/L 11/27/2023 7:45 AM [facility] Hemoglobin 11.2(L) 13.3 - 17.5 g/dL 11/27/2023 7:45 AM [facility] Hematocrit 31.7(L) 38.7 - 51.1 % 11/27/2023 7:45 AM [facility] MCV 93.0 80.0 - 98.0 fL 11/27/2023 7:45 AM [facility] MCH 32.8 26.7 - 33.6 pg 11/27/2023 7:45 AM [facility] MCHC 35.3 31.7 - 36.3 g/dL 11/27/2023 7:45 AM [facility] RDW-CV 12.5 11.3 - 14.8 % 11/27/2023 7:45 AM [facility] Platelet Count 170 150 - 420 x10E9/L 11/27/2023 7:45 AM [facility] MPV 11.8(H) 7.8 - 11.4 fL 11/27/2023 7:45 AM [facility] Neutrophil % 66.7 41.0 - 74.0 % 11/27/2023 7:45 AM [facility] Lymphocyte % 24.3 17.0 - 47.0 % 11/27/2023 7:45 AM [facility] Monocyte % 6.7 3.0 - 11.0 % 11/27/2023 7:45 AM [facility] Eosinophil % 1.4 0.0 - 7.0 % 11/27/2023 7:45 AM [facility] Basophil % 0.6 0.0 - 1.6 % 11/27/2023 7:45 AM [facility] Immature Granulocytes % 0.3 0.0 - 1.0 % 11/27/2023 7:45 AM [facility] Neutrophil Absolute 6.83 1.60 - 7.50 x10E9/L 11/27/2023 7:45 AM [facility] Lymphocyte Absolute 2.48 1.00 - 4.40 x10E9/L 11/27/2023 7:45 AM [facility] Monocyte Absolute 0.68 0.15 - 1.00 x10E9/L 11/27/2023 7:45 AM [facility] Eosinophil Absolute 0.14 0.00 - 0.60 x10E9/L 11/27/2023 7:45 AM [facility] Basophil Absolute 0.06 0.00 - 0.13 x10E9/L 11/27/2023 7:45 AM [facility] Blood BLOOD SPECIMEN / Unknown Venipuncture / Unknown 11/27/2023 7:16 AM T 11/27/2023 7:19 AM [facility] Derrick Bush MD LAB - HEMATOLOGY ORD ERABLES [facility] [address] [place] [phone], [facility] [phone] * (ABNORMAL) BASIC METABOLIC PANEL (CALCIUM TOTAL) (11/27/2023 7:16 AM CDT) [facility] BUN 22 7 - 26 mg/dL 11/27/2023 7:45 AM [facility] Creatinine 1.24(H) 0.71 - 1.16 mg/dL 11/27/2023 7:45 AM [facility] Sodium 133(L) 136 - 145 mmol/L 11/27/2023 7:45 AM [facility] Potassium 3.9 3.5 - 4.5 mmol/L 11/27/2023 7:45 AM [facility] Chloride 105 98 - 107 mmol/L 11/27/2023 7:45 AM [facility] CO2 18(L) 22 - 29 mmol/L 11/27/2023 7:45 AM [facility] Glucose 126(H) 70 - 115 mg/dL 11/27/2023 7:45 AM [facility] Calcium 8.7 8.4 - 10.2 mg/dL 11/27/2023 7:45 AM [facility] Anion Gap 10 6 - 16 11/27/2023 7:45 AM [facility] BUN/Creatinine Ratio 18 7 - 23 11/27/2023 7:45 AM [facility] Osmolality Calculated 281 275 - 295 mOsm/kg 11/27/2023 7:45 AM [facility] eGFR by CKD-EPI 62(L) >=90 mL/min/1.7 3 m2 11/27/2023 7:45 AM [facility] Blood BLOOD SPECIMEN / Unknown Venipuncture / Unknown 11/27/2023 7:16 AM CDT 11/27/2023 7:19 AM T Derrick Bush MD LAB - CHEMISTRY DIPTI SCHMITT [facility] [address] [place] [address], [facility] [phone] * PHOSPHORUS BLOOD (11/26/2023 9:20 PM CDT) [facility] Phosphorus 4.0 2.8 - 5.1 mg/dL 11/26/2023 9:58 PM CDT [facility] Blood BLOOD SPECIMEN / Unknown Venipuncture / Unknown 11/26/2023 9:20 PM CDT 11/26/2023 9:26 PM CDT Derrick Bush MD LAB - CHEMISTRY DIPTI SCHMITT [address] [address], [facility] [phone] * MAGNESIUM BLOOD (11/26/2023 9:20 PM CDT) [facility] Magnesium 1.8 1.6 - 2.6 mg/dL 11/26/2023 9:58 PM CDT [facility] Blood BLOOD SPECIMEN / Unknown Venipuncture / Unknown 11/26/2023 9:20 PM CDT 11/26/2023 9:26 PM CDT Derrick Bush MD LAB - CHEMISTRY DIPTI SCHMITT [address] [address], [facility] [phone] * (ABNORMAL) CBC W/O DIFFERENTIAL (11/26/2023 9:20 PM CDT) [facility] WBC 9.0 4.0 - 10.7 x10E9/L 11/26/2023 9:42 PM CDT [facility] RBC Count 3.39(L) 4.30 - 5.80 x10E12/L 11/26/2023 9:42 PM CDT [facility] Hemoglobin 11.1(L) 13.3 - 17.5 g/dL 11/26/2023 9:42 PM T [facility] Hematocrit 31.5(L) 38.7 - 51.1 % 11/26/2023 9:42 PM T [facility] MCV 92.9 80.0 - 98.0 fL 11/26/2023 9:42 PM T [facility] MCH 32.7 26.7 - 33.6 pg 11/26/2023 9:42 PM [facility] MCHC 35.2 31.7 - 36.3 g/dL 11/26/2023 9:42 PM [facility] RDW-CV 12.3 11.3 - 14.8 % 11/26/2023 9:42 PM [facility] Platelet Count 166 150 - 420 x10E9/L 11/26/2023 9:42 PM [facility] MPV 11.5(H) 7.8 - 11.4 fL 11/26/2023 9:42 PM [facility] Blood BLOOD SPECIMEN / Unknown Venipuncture / Unknown 11/26/2023 9:20 PM CDT 11/26/2023 9:26 PM CDT Derrick Bush MD LAB - HEMATOLOGY ORD ERABLES Performing Organization Address City/State/[facility] Co de Phone Number [facility] [address] [place] [phone] [phone] * (ABNORMAL) BASIC METABOLIC PANEL (CALCIUM TOTAL) (11/26/2023 9:20 PM CDT) BUN 21 7 - 26 mg/dL 11/26/2023 9:58 PM [facility] Creatinine 1.26(H) 0.71 - 1.16 mg/dL 11/26/2023 9:58 PM [facility] Sodium 134(L) 136 - 145 mmol/L 11/26/2023 9:58 PM [facility] Potassium 4.3 3.5 - 4.5 mmol/L 11/26/2023 9:58 PM [facility] Chloride 106 98 - 107 mmol/L 11/26/2023 9:58 PM [facility] CO2 17(L) 22 - 29 mmol/L 11/26/2023 9:58 PM [facility] Glucose 106 70 - 115 mg/dL 11/26/2023 9:58 PM [facility] Calcium 8.8 8.4 - 10.2 mg/dL 11/26/2023 9:58 PM CDT [facility] Anion Gap 11 6 - 16 11/26/2023 9:58 PM CDT [facility] BUN/Creatinine Ratio 17 7 - 23 11/26/2023 9:58 PM CDT [facility] Osmolality Calculated 281 275 - 295 mOsm/kg 11/26/2023 9:58 PM CDT [facility] eGFR by CKD-EPI 61(L) >=90 mL/min/1.7 3 m2 11/26/2023 9:58 PM CDT [facility] Blood BLOOD SPECIMEN / Unknown Venipuncture / Unknown 11/26/2023 9:20 PM CDT 11/26/2023 9:26 PM CDT Derrick Bush MD LAB - CHEMISTRY DIPTI SCHMITT Performing Organization Address [facility]/ZIP Co de Phone Number [address] [address], [place] [phone] * ACT LR - POCT ([facility]) (11/26/2023 10:49 AM CDT) ACT LR 243 See result comments sec 11/28/2023 7:33 AM CDT [facility] Blood BLOOD SPECIMEN / Unknown 11/26/2023 10:49 AM CDT 11/28/2023 7:33 AM CDT Narrative [facility] - 11/28/2023 7:33 AM CDT ACT-LR Therapeutics ranges are: Cardiac laborer pipeline = 200-300 seconds Sheath pull = ACT [...] - COAGULATION O RDERABLES Performing Organization Address City/[facility]/ZIP Co de Phone Number [address] [address], [place] [phone] * PATHOLOGY TISSUE (11/26/2023 8:57 AM CDT) Case Report Surgical Pathology Report ? Case: [id number] ? Authorizing Provider: ??Herminia Howe MD ? Collected: ? 11/26/2023 08:57 AM ? Ordering Location: ? [facility] ?Received: ?11/26/2023 11:16 AM ? Pathologist: ? Juana Anne MD ? Specimen: ?Carotid Artery, Left Carotid Plaque ? 11/28/2023 4:11 PM [facility] Final Diagnosis Carotid artery plaque, left, endarterectomy: - Calcific atherosclerosis with organized thrombus 11/28/2023 4:11 PM [facility] Microscopic Description and Comment Microscopic examination substantiates the above captioned diagnosis. 11/28/2023 4:11 PM [facility] Clinical History Left carotid artery stenosis 11/28/2023 4:11 PM [facility] Gross Description The requisition and specimen(s) are identified with the patient's name Liz Turcios . Received in formalin, specimen A , and consists of three portions of marcelino-yellow irregular rubbery tissue ranging from 0.8 to 2.2 cm in greatest dimension which are step sectioned. The cut surfaces show marcelino-yellow to marcelino-brown laminated rubbery tissue without calcification. Boiler Tube Reamer sections are submitted in a single cassette labeled A1. RB 11/28/2023 4:11 PM CDT [facility] Pathologist Location at [facility] 11/28/2023 4:11 PM CDT [facility] Disclaimer The performance characteristics of all immunohistochemical and indirect immunofluorescence stains (if any) cited in this report were determined by the Histopathology Laboratory of [facility]. Some of these tests were developed by [...] attending (teaching) pathologist. 11/28/2023 4:11 PM CDT [facility] Embedded Images 11/28/2023 4:11 PM CDT [facility] Biopsy, Excision CAROTID ARTERY STRUCTURE / Unknown 11/26/2023 8:57 AM CDT 11/26/2023 11:16 AM CDT Comment:Pre-op diagnosis: STENOSIS OF LEFT CAROTID ARTERY WITHOUT CEREBRAL INFARCTION [I65.22] Herminia Howe MD LAB - PATHOLOGY/CYT OLOGY ORDERABLES Performing Organization Address City/State/[facility] Co de Phone Number [facility] [address] [phone] * ACT LR - POCT ([facility]) (11/26/2023 8:27 AM CDT) ACT LR 229 See result comments sec 11/26/2023 1:18 PM CDT [facility] Blood BLOOD SPECIMEN / Unknown 11/26/2023 8:27 AM CDT 11/26/2023 1:18 PM CDT Narrative [facility] - 11/26/2023 1:18 PM CDT ACT-LR The[employer] ranges are: Cardiac laborer pipeline = 200-300 seconds Sheath pull = ACT [...] Howe MD LAB - COAGULATION O RDERABLES [facility] [address] [place] [address], [facility] [phone] * (ABNORMAL) BLOOD GAS+COOX+LYTES+METAB ARTERIAL POCT (11/26/2023 8:27 AM CDT) pH Arterial 7.33(L) 7.35 - 7.45 pH 11/26/2023 8:27 AM [facility] pO2 Arterial 241(H) 80 - 100 mmHg 11/26/2023 8:27 AM [facility] pCO2 Arterial 43 35 - 45 mmHg 8:27 AM [facility] HCO3 Arterial 22.7 20.0 - 30.0 mmol/L 11/26/2023 8:27 AM [facility] BE Arterial -3.2(L) -2.0 - 2.0 mmol/L 11/26/2023 8:27 AM [facility] Oxyhemoglobin Arterial 96.4 % 11/26/2023 8:27 AM [facility] Dexoyhemoglobin (HHB) % <1.0 % 11/26/2023 8:27 AM [facility] Methemoglobin 1.2 0.0 - 2.0 % 11/26/2023 8:27 AM [facility] Carboxyhemoglobin 1.8 0.0 - 2.0 % 2023 8:27 AM [facility] Comment:Carboxyhemoglobin No rmal Concentration: Non-smokers: 0-2%; Smokers: 0- 9%; Toxic: >20% O2 Content Arterial 17.0 Interpret within clinical context ml/dL 11/26/2023 8:27 AM [facility] Hemoglobin by COOX 12.1 12.0 - 17.6 g/dL 11/26/2023 8:27 AM [facility] O2 Saturation Arterial 99 90 - 100 % 11/26/2023 8:27 AM [facility] Sodium Whole Blood 134(L) 135 - 145 mmol/L 11/26/2023 8:27 AM [facility] Potassium Whole Blood 4.0 3.5 - 5.5 mmol/L 11/26/2023 8:27 AM [facility] Chloride WB 105 78 - 107 mmol/L 11/26/2023 8:27 AM [facility] Calcium Ionized 1.19 mmol/L 8:27 AM [facility] Ionized Calcium pH Adjusted 1.16(L) 1.19 - 1.34 mmol/L 11/26/2023 8:27 AM [facility] Anion Gap (AG) Arterial 6 6 - 16 mmol/L 11/26/2023 8:27 AM [facility] Glucose WB 91 70 - 115 mg/dL 11/26/2023 8:27 AM [facility] Lactic Acid Whole Blood 0.7 <=2.0 mmol/L 11/26/2023 8:27 AM [facility] Blood, arterial ARTERIAL BLOOD SPECIMEN / Unknown 11/26/2023 8:27 AM CDT 11/26/2023 8:28 AM CDT Herminia Howe MD LAB - POINT OF CARE ORDERABLES [facility] [address] [place] [id number], [facility] [phone] * ACT LR - POCT ([facility]) (11/26/2023 7:53 AM CDT) ACT LR 218 See result comments sec 11/26/2023 1:18 PM [facility] Blood BLOOD SPECIMEN / Unknown 11/26/2023 7:53 AM CDT 11/26/2023 1:18 PM CDT Narrative [facility] - 11/26/2023 1:18 PM CDT ACT-LR Therapeutics ranges are: Cardiac laborer pipeline = 200-300 seconds Sheath pull = ACT [...] Herminia Howe MD LAB - COAGULATION O [place] [address] [address], [place] [phone] * ACT LR - POCT ([facility]) (11/26/2023 7:25 AM CDT) [facility] ACT LR 285 See result comments sec 11/26/2023 1:18 PM CDT [facility] Blood BLOOD SPECIMEN / Unknown 11/26/2023 7:25 AM CDT 11/26/2023 1:18 PM CDT Narrative [facility] - 11/26/2023 1:18 PM CDT ACT-LR Therapeutics ranges are: Cardiac laborer pipeline = 200-300 seconds Sheath pull = ACT [...] Herminia Howe MD LAB - COAGULATION O [place] Performing Organization Address City/[facility]/ZIP Co de Phone Number [address] [address], [place] [phone] * TYPE + SCREEN PANEL (11/26/2023 6:14 AM CDT) Antibody Screen NEG 7:13 AM CDT [facility] ABO Rh O POS 11/26/2023 7:13 AM CDT [facility] Blood Bank BLOOD SPECIMEN / Unknown Line Draw / Unknown 11/26/2023 6:14 AM CDT 11/26/2023 6:22 AM CDT Herminia Howe MD LAB - BLOOD BANK OR DERABLES [facility] [address] [place] [address], [facility] [phone] documented in this encounter Visit Diagnoses Diagnosis Carotid stenosis, asymptomatic, left- Primary Stenosis of left carotid artery Occlusion and stenosis of carotid artery without mention of cerebral infarction Lung nodule, solitary Stenosis of left carotid artery without cerebral infarction Carotid stenosis, asymptomatic, left Pulsatile abdomen Other symptoms involving abdomen and pelvis Carotid stenosis, asymptomatic, left Pulsatile abdomen Other symptoms involving abdomen and pelvis documented in this encounter Administered Medications Inactive Administered Medications - up to 3 most recent administrations Medication Order MAR Action Action Date Dose Rate Site 0.9% NaCl infusion at 125 mL/hr, Intravenous, CONTINUOUS, Starting on Sun11/26/23 at 1145, Until Sun11/27/23 at 1445 0.9% NaCl injection 1-10 mL 1-10 mL, Intracatheter, PRN, Other, peripheral line flush, Starting on Sun11/26/23 at 1110, Until Sun11/27/23 at 1445, Flush peripheral IV catheter with 1-10 mL of normal saline before and after medications and prn to clear blood from the line or to verify patency. 0.9% NaCl injection 3 mL 3 mL, Intracatheter, EVERY 8 HOURS, First dose on Sun11/26/23 at 1400, Until Discontinued, Flush peripheral IV catheter with 3 mL of normal saline every 8 hours. $ Given 11/27/2023 6:33 AM CDT 3 mL $ Given 11/26/2023 9:13 PM CDT 3 mL acetaminophen (Tylenol) tablet 1,000 mg 1,000 mg, Oral, PRE-OP ONCE, 1 dose, On Sun11/26/23 at 0600, Patient preference for lesser PRN pain meds may be honored when the patient requests a less strong medication, a lower dose, or a less intrusive route of administration when the lesser drug, dose and route have been ordered for the patient. This patient request must be documented in the MAR. If both oral and IV options are ordered for the same pain severity, give oral first unless patient cannot tolerate oral intake, Pre-op $ Given 11/26/2023 6:26 AM CDT 1,000 mg acetaminophen (Tylenol) tablet 650 mg 650 mg, Oral, EVERY 6 HOURS, 20 doses, First dose on Sun11/26/23 at 1200, Last dose on Sun12/01/23 at 0600, Patient preference for lesser PRN pain meds may be honored when the patient requests a less strong medication, a lower dose, or a less intrusive route of administration when the lesser drug, dose and route have been ordered for the patient. This patient request must be documented in the MAR. If both oral and IV options are ordered for the same pain severity, give oral first unless patient cannot tolerate oral intake $ Given 11/27/2023 6:32 AM CDT 650 mg $ Given 11/26/2023 11:26 PM CDT 650 mg $ Given 11/26/2023 5:15 PM CDT 650 mg bisacodyl EC (Dulcolax) tablet 5 mg 5 mg, Oral, DAILY PRN, Constipation, Starting on Sun11/26/23 at 1223, Until Sun11/27/23 at 1445, Do not take within 1 hour of antacid, milk or milk product. Do not chew, crush or cut in half. xdqyiiggel-zdtjdwvroxcwj-wuxboacf (Fioricet) 50-325-40 MG tablet 1 tablet 1 tablet, Oral, 2 TIMES DAILY PRN, Headache, Migraine, Starting on Sun11/26/23 at 1215, Until Sun11/27/23 at 1445, Do not exceed 6 tablets in 24 hours $ Given 11/27/2023 9:35 AM CDT 1 tablet $ Given 11/26/2023 2:01 PM CDT 1 tablet fentaNYL (PF) (Sublimaze) injection 50 mcg 50 mcg, Intravenous, EVERY 10 MIN PRN, Moderate Pain, 4 doses, Starting on Sun11/26/23 at 0804, Until Sun11/26/23 at 1700, Maximum total of 4 doses. If patient reaches max total dose, please consult anesthesiologist prior to further administration of pain meds. Hold pain meds if there are signs of hypoventilation. Patient preference for lesser PRN pain meds may be honored when the patient requests a less strong medication, a lower dose, or a less intrusive route of administration when the lesser drug, dose and route have been ordered for the patient. This patient request must be documented in the MAR. If both oral and IV options are ordered for the same pain severity, give oral first unless patient cannot tolerate oral intake, PACU $ Given 11/26/2023 11:00 AM CDT 50 mcg $ Given 11/26/2023 10:15 AM CDT 50 mcg heparin injection 5,000 Units 5,000 Units, Subcutaneous, EVERY 8 HOURS, First dose on Sun11/26/23 at 1400, Until Discontinued $ Given 11/27/2023 6:32 AM CDT 5,000 Units Abdominal Tissue $ Given 11/26/2023 9:13 PM CDT 5,000 Units A bdominal Tissue $ Given 11/26/2023 2:05 PM CDT 5,000 Units A bd Left Upper Quadrant hydrALAZINE (Apresoline) injection 5 mg 5 mg, Intravenous, POST-OP MULTIPLE, Starting on Sun11/26/23 at 0804, Until Sun11/26/23 at 1700, IV given slowly over 1 minute, up to 20 mg. Repeat 5 mg IV dose every 10-15 minutes for sustained hypertension SBP > 160 or MAP > 100. Hold for SBP < 140., PACU $ Given 11/26/2023 10:25 AM CDT 5 mg $ Given 11/26/2023 10:15 AM CDT 5 mg hydrALAZINE (Apresoline) injection 5 mg 5 mg, Intravenous, EVERY 15 MIN PRN, SBP greater than 160 mmHg, Do Not Exceed 4 Doses, Starting on Sun11/26/23 at 1822, Until Sun11/26/23 at 1841, IV given slowly over 1 minute, up to 20 mg. Repeat 5 mg IV dose every 15 minutes for sustained hypertension SBP > 160 or MAP > 100. Hold for SBP < 140. $ Given 11/26/2023 6:27 PM CDT 5 mg hydrALAZINE (Apresoline) injection 5 mg 5 mg, Intravenous, EVERY 15 MIN PRN, SBP greater than 160 mmHg, or MAP > 100. If HR > 100, please give prn labetolol instead.. Thank you., 4 doses, Starting on Sun11/26/23 at 1840, Until Sun11/27/23 at 1445, IV given slowly over 1 minute. HYDROmorphone (Dilaudid) injection 0.5 mg 0.5 mg, Intravenous, EVERY 10 MIN PRN, Severe Pain, 4 doses, Starting on Sun11/26/23 at 0804, Until Sun11/26/23 at 1700, Maximum total of 4 doses If patient reaches max total dose, please consult anesthesiologist prior to further administration of pain meds. Hold pain meds if there are signs of hypoventilation. Patient preference for lesser PRN pain meds may be honored when the patient requests a less strong medication, a lower dose, or a less intrusive route of administration when the lesser drug, dose and route have been ordered for the patient. This patient request must be documented in the MAR. If both oral and IV options are ordered for the same pain severity, give oral first unless patient cannot tolerate oral intake, PACU $ Given 11/26/2023 1:26 PM CDT 0.5 mg $ Given 11/26/2023 11:52 AM CDT 0.5 mg labetalol (Normodyne; Trandate) injection 5 mg 5 mg, Intravenous, POST-OP MULTIPLE, Starting on Sun11/26/23 at 0804, Until Sun11/26/23 at 1700, IV given slowly over 1 minute up to 20 mg. Repeat every 10-15 minutes in 5 mg doses. Give for hypertension SBP > 160 or MAP > 100. Hold for HR < 60 or SBP < 140., PACU $ Given 11/26/2023 11:30 AM CDT 5 mg $ Given 11/26/2023 10:15 AM CDT 5 mg labetalol (Normodyne; Trandate) injection 5 mg 5 mg, Intravenous, EVERY 10 MIN PRN, Hypertension, Other, SBP > 160 or MAP > 100. Hold if HR < 70. Thank you., Starting on Sun11/26/23 at 1838, Until Sun11/27/23 at 1445, Max IV dose is 300mg/24 hours. lactated ringers infusion at 20 mL/hr, Intravenous, PRE-OP CONTINUOUS, Starting on Sun11/26/23 at 0600, Until Sun11/26/23 at 1127, Pre-op $ New Bag/Syringe 11/26/2023 6:28 AM CDT 1,000 mL 20 mL/hr Right Arm melatonin tablet 3 mg 3 mg, Oral, AT BEDTIME PRN, Insomnia, Starting on Sun11/26/23 at 2336, Until Sun11/27/23 at 1445 $ Given 11/26/2023 11:43 PM CDT 3 mg oxyCODONE (immediate release) (Roxicodone) tablet 10 mg 10 mg, Oral, EVERY 4 HOURS PRN, Severe Pain, Starting on Sun11/26/23 at 1219, Until Sun11/27/23 at 1445, Patient preference for lesser PRN pain meds may be honored when the patient requests a less strong medication, a lower dose, or a less intrusive route of administration when the lesser drug, dose and route have been ordered for the patient. This patient request must be documented in the MAR. If both oral and IV options are ordered for the same pain severity, give oral first unless patient cannot tolerate oral intake oxyCODONE (immediate release) (Roxicodone) tablet 5 mg 5 mg, Oral, EVERY 4 HOURS PRN, Moderate Pain, Starting on Sun11/26/23 at 1219, Until Sun11/27/23 at 1445, Patient preference for lesser PRN pain meds may be honored when the patient requests a less strong medication, a lower dose, or a less intrusive route of administration when the lesser drug, dose and route have been ordered for the patient. This patient request must be documented in the MAR. If both oral and IV options are ordered for the same pain severity, give oral first unless patient cannot tolerate oral intake pantoprazole (Protonix) injection 40 mg 40 mg, Intravenous, DAILY, First dose on Sun11/26/23 at 1200, Until Discontinued, For every 40 mg of pantoprazole mix with 10 mL Normal Saline (final concentration = 4 mg/mL). Inject SLOWLY over 2 min. $ Given 11/27/2023 8:21 AM CDT 40 mg $ Given 11/26/2023 2:07 PM CDT 40 mg polyethylene glycol 3350 (Miralax) packet 17 g 17 g, Oral, DAILY PRN, Constipation, Starting on Sun11/26/23 at 1223, Until Sun11/27/23 at 1445, Mix in 8 ounces of water, juice, soda, coffee or tea prior to administration SUMAtriptan (Imitrex) tablet 50 mg 50 mg, Oral, DAILY PRN - MR X 1, Migraine, Starting on Sun11/26/23 at 1213, Until Sun11/27/23 at 1445, May repeat 2 hours after initial dose, do not exceed 200mg in 24 hours $ Given 11/26/2023 7:52 PM CDT 50 mg $ Given 11/26/2023 6:04 PM CDT 50 mg documented in this encounter Active and Recently Administered Medications Times are shown in CDT. Scheduled Medication Order 11/25/2023 11/26/2023 11/27/2023 0.9% NaCl injection 3 mL(Linked Group 1) 3 mL, Intracatheter, EVERY 8 HOURS, First dose on Sun11/26/23 at 1400, Until Discontinued, Flush peripheral IV catheter with 3 mL of normal saline every 8 hours. 1559 (Not Administered - Provider: Sonia Basurto RN - Reason: IV Currently Infusing)2113 ($ Given - Provider: Kaity Almeida, AVI) 0633 ($ Given - Provider: Kaity Almeida, AVI) acetaminophen (Tylenol) tablet 1,000 mg (COMPLETED) 1,000 mg, Oral, PRE-OP ONCE, 1 dose, On Sun11/26/23 at 0600, Patient preference for lesser PRN pain meds may be honored when the patient requests a less strong medication, a lower dose, or a less intrusive route of administration when the lesser drug, dose and route have been ordered for the patient. This patient request must be documented in the MAR. If both oral and IV options are ordered for the same pain severity, give oral first unless patient cannot tolerate oral intake, Pre-op 0626 ($ Given - Provider: Tamra Stallings RN) acetaminophen (Tylenol) tablet 650 mg 650 mg, Oral, EVERY 6 HOURS, 20 doses, First dose on Sun11/26/23 at 1200, Last dose on Sun12/01/23 at 0600, Patient preference for lesser PRN pain meds may be honored when the patient requests a less strong medication, a lower dose, or a less intrusive route of administration when the lesser drug, dose and route have been ordered for the patient. This patient request must be documented in the MAR. If both oral and IV options are ordered for the same pain severity, give oral first unless patient cannot tolerate oral intake 1404 ($ Given - Provider: Sonia Basurto RN)1715 ($ Given - Provider: Marcelle Hinojosa RN)2326 ($ Given - Provider: Kaity Almeida RN) 0632 ($ Given - Provider: Kaity Almeida, RN)1200 (Due) heparin injection 5,000 Units 5,000 Units, Subcutaneous, EVERY 8 HOURS, First dose on Sun11/26/23 at 1400, Until Discontinued 1405 ($ Given - Provider: Sonia Basurto RN)2113 ($ Given - Provider: Kaity Almeida, AVI) 0632 ($ Given - Provider: Kaity Almeida RN) hydrALAZINE (Apresoline) injection 5 mg (CANCELED) 5 mg, Intravenous, POST-OP MULTIPLE, Starting on Sun11/26/23 at 0804, Until Sun11/26/23 at 1700, IV given slowly over 1 minute, up to 20 mg. Repeat 5 mg IV dose every 10-15 minutes for sustained hypertension SBP > 160 or MAP > 100. Hold for SBP < 140., PACU 1015 ($ Given - Provider: Sonia Basurto RN)1025 ($ Given - Provider: Sonia Basurto RN) labetalol (Normodyne; Trandate) injection 5 mg (CANCELED) 5 mg, Intravenous, POST-OP MULTIPLE, Starting on Sun11/26/23 at 0804, Until Sun11/26/23 at 1700, IV given slowly over 1 minute up to 20 mg. Repeat every 10-15 minutes in 5 mg doses. Give for hypertension SBP > 160 or MAP > 100. Hold for HR < 60 or SBP < 140., PACU 1015 ($ Given - Provider: Sonia Basurto RN)1130 ($ Given - Provider: Sonia Basurto RN) pantoprazole (Protonix) injection 40 mg 40 mg, Intravenous, DAILY, First dose on Sun11/26/23 at 1200, Until Discontinued, For every 40 mg of pantoprazole mix with 10 mL Normal Saline (final concentration = 4 mg/mL). Inject SLOWLY over 2 min. 1407 ($ Given - Provider: Sonia Basurto RN) 0821 ($ Given - Provider: Jaky Wagner, AVI) Continuous Medication Order 11/25/2023 11/26/2023 11/27/2023 0.9% NaCl infusion at 125 mL/hr, Intravenous, CONTINUOUS, Starting on Sun11/26/23 at 1145, Until Sun11/27/23 at 1445 1145 (Due) lactated ringers infusion (CANCELED) at 20 mL/hr, Intravenous, PRE-OP CONTINUOUS, Starting on Sun11/26/23 at 0600, Until Sun11/26/23 at 1127, Pre-op 0628 ($ New Bag/Syringe - Provider: Tamra Stallings RN) PRN Medication Order 11/25/2023 11/26/2023 11/27/2023 0.9% NaCl injection 1-10 mL(Linked Group 1) 1-10 mL, Intracatheter, PRN, Other, peripheral line flush, Starting on Sun11/26/23 at 1110, Until Sun11/27/23 at 1445, Flush peripheral IV catheter with 1-10 mL of normal saline before and after medications and prn to clear blood from the line or to verify patency. bisacodyl EC (Dulcolax) tablet 5 mg 5 mg, Oral, DAILY PRN, Constipation, Starting on Sun11/26/23 at 1223, Until Sun11/27/23 at 1445, Do not take within 1 hour of antacid, milk or milk product. Do not chew, crush or cut in half. BUPivacaine PF (Marcaine PF) 0.5 % injection (CANCELED) PRN, Starting on Sun11/26/23 at 0813, Until Sun11/26/23 at 1036, Intra-op 0813 ($ Given - Provider: Herminia Howe MD - Comment: Given to sterile field) grqefptdiv-cdflyepfsflho-ami feine (Fioricet) 50-325-40 MG tablet 1 tablet 1 tablet, Oral, 2 TIMES DAILY PRN, Headache, Migraine, Starting on Sun11/26/23 at 1215, Until Sun11/27/23 at 1445, Do not exceed 6 tablets in 24 hours 1401 ($ Given - Provider: Sonia Basurto RN) 0935 ($ Given - Provider: Jaky Wagner RN) fentaNYL (PF) (Sublimaze) injection 50 mcg (CANCELED) 50 mcg, Intravenous, EVERY 10 MIN PRN, Moderate Pain, 4 doses, Starting on Sun11/26/23 at 0804, Until Sun11/26/23 at 1700, Maximum total of 4 doses. If patient reaches max total dose, please consult anesthesiologist prior to further administration of pain meds. Hold pain meds if there are signs of hypoventilation. Patient preference for lesser PRN pain meds may be honored when the patient requests a less strong medication, a lower dose, or a less intrusive route of administration when the lesser drug, dose and route have been ordered for the patient. This patient request must be documented in the MAR. If both oral and IV options are ordered for the same pain severity, give oral first unless patient cannot tolerate oral intake, PACU 1015 ($ Given - Provider: Sonia Basurto RN)1100 ($ Given - Provider: Sonia Basurto RN) heparin (Dialysis/OR: Not for IV Use, No Dual Sign Off) 1,000 Units in 0.9% NaCl IV 500 mL irrigation (CANCELED) PRN, Starting on Sun11/26/23 at 0813, Until Sun11/26/23 at 1036, Intra-op 0813 ($ Given - Provider: Herminia Howe MD - Comment: Given to sterile field) hydrALAZINE (Apresoline) injection 5 mg (CANCELED) 5 mg, Intravenous, EVERY 15 MIN PRN, SBP greater than 160 mmHg, Do Not Exceed 4 Doses, Starting on Sun11/26/23 at 1822, Until Sun11/26/23 at 1841, IV given slowly over 1 minute, up to 20 mg. Repeat 5 mg IV dose every 15 minutes for sustained hypertension SBP > 160 or MAP > 100. Hold for SBP < 140. 182 ($ Given - Provider: Marcelle Hinojosa RN) hydrALAZINE (Apresoline) injection 5 mg 5 mg, Intravenous, EVERY 15 MIN PRN, SBP greater than 160 mmHg, or MAP > 100. If HR > 100, please give prn labetolol instead.. Thank you., 4 doses, Starting on Sun11/26/23 at 1840, Until Sun11/27/23 at 1445, IV given slowly over 1 minute. HYDROmorphone (Dilaudid) injection 0.5 mg (CANCELED) 0.5 mg, Intravenous, EVERY 10 MIN PRN, Severe Pain, 4 doses, Starting on Sun11/26/23 at 0804, Until Sun11/26/23 at 1700, Maximum total of 4 doses If patient reaches max total dose, please consult anesthesiologist prior to further administration of pain meds. Hold pain meds if there are signs of hypoventilation. Patient preference for lesser PRN pain meds may be honored when the patient requests a less strong medication, a lower dose, or a less intrusive route of administration when the lesser drug, dose and route have been ordered for the patient. This patient request must be documented in the MAR. If both oral and IV options are ordered for the same pain severity, give oral first unless patient cannot tolerate oral intake, PACU 1152 ($ Given - Provider: Jaky Ruiz RN)1326 ($ Given - Provider: Sonia Basurto RN) labetalol (Normodyne; Trandate) injection 5 mg 5 mg, Intravenous, EVERY 10 MIN PRN, Hypertension, Other, SBP > 160 or MAP > 100. Hold if HR < 70. Thank you., Starting on Sun11/26/23 at 1838, Until Sun11/27/23 at 1445, Max IV dose is 300mg/24 hours. lidocaine (Xylocaine) 1 % injection (CANCELED) PRN, Starting on Sun11/26/23 at 0814, Until Sun11/26/23 at 1036, Intra-op 0814 ($ Given - Provider: Herminia Howe MD - Comment: Given to sterile field) melatonin tablet 3 mg 3 mg, Oral, AT BEDTIME PRN, Insomnia, Starting on Sun11/26/23 at 2336, Until Sun11/27/23 at 1445 2343 ($ Given - Provider: Kaity Almeida RN) oxyCODONE (immediate release) (Roxicodone) tablet 10 mg(Linked Group 2) 10 mg, Oral, EVERY 4 HOURS PRN, Severe Pain, Starting on Sun11/26/23 at 1219, Until Sun11/27/23 at 1445, Patient preference for lesser PRN pain meds may be honored when the patient requests a less strong medication, a lower dose, or a less intrusive route of administration when the lesser drug, dose and route have been ordered for the patient. This patient request must be documented in the MAR. If both oral and IV options are ordered for the same pain severity, give oral first unless patient cannot tolerate oral intake oxyCODONE (immediate release) (Roxicodone) tablet 5 mg(Linked Group 2) 5 mg, Oral, EVERY 4 HOURS PRN, Moderate Pain, Starting on Sun11/26/23 at 1219, Until Sun11/27/23 at 1445, Patient preference for lesser PRN pain meds may be honored when the patient requests a less strong medication, a lower dose, or a less intrusive route of administration when the lesser drug, dose and route have been ordered for the patient. This patient request must be documented in the MAR. If both oral and IV options are ordered for the same pain severity, give oral first unless patient cannot tolerate oral intake polyethylene glycol 3350 (Miralax) packet 17 g 17 g, Oral, DAILY PRN, Constipation, Starting on Sun11/26/23 at 1223, Until Sun11/27/23 at 1445, Mix in 8 ounces of water, juice, soda, coffee or tea prior to administration SUMAtriptan (Imitrex) tablet 50 mg 50 mg, Oral, DAILY PRN - MR X 1, Migraine, Starting on Sun11/26/23 at 1213, Until Sun11/27/23 at 1445, May repeat 2 hours after initial dose, do not exceed 200mg in 24 hours 1804 ($ Given - Provider: Marcelle Hinojosa RN)1951 ($ Given - Provider: Kaity Almeida RN) Linked Groups Order Group 1: SALINE LOCK, INSERT AND MAINTAIN (CANCELED) Routine, CONTINUOUS, Starting on Sun11/26/23 at 1115, Until Specified, New collection And 0.9% NaCl injection 3 mLJump to med 3 mL, Intracatheter, EVERY 8 HOURS, First dose on Sun11/26/23 at 1400, Until Discontinued, Flush peripheral IV catheter with 3 mL of normal saline every 8 hours. And 0.9% NaCl injection 1-10 mLJump to med 1-10 mL, Intracatheter, PRN, Other, peripheral line flush, Starting on Sun11/26/23 at 1110, Until Sun11/27/23 at 1445, Flush peripheral IV catheter with 1-10 mL of normal saline before and after medications and prn to clear blood from the line or to verify patency. Group 2: oxyCODONE (immediate release) (Roxicodone) tablet 5 mgJump to med 5 mg, Oral, EVERY 4 HOURS PRN, Moderate Pain, Starting on Sun11/26/23 at 1219, Until Sun11/27/23 at 1445, Patient preference for lesser PRN pain meds may be honored when the patient requests a less strong medication, a lower dose, or a less intrusive route of administration when the lesser drug, dose and route have been ordered for the patient. This patient request must be documented in the MAR. If both oral and IV options are ordered for the same pain severity, give oral first unless patient cannot tolerate oral intake Or oxyCODONE (immediate release) (Roxicodone) tablet 10 mgJump to med 10 mg, Oral, EVERY 4 HOURS PRN, Severe Pain, Starting on Sun11/26/23 at 1219, Until Sun11/27/23 at 1445, Patient preference for lesser PRN pain meds may be honored when the patient requests a less strong medication, a lower dose, or a less intrusive route of administration when the lesser drug, dose and route have been ordered for the patient. This patient request must be documented in the MAR. If both oral and IV options are ordered for the same pain severity, give oral first unless patient cannot tolerate oral intake documented in this encounter Care Teams Slitter Processed Film Relationship Specialty Start Date End Date Fabiano Mosley MD PCP - General 12/06/18 documented as of this encounter
--- OUTSIDE RECORDS SUMMARY | 2024-04-12 09:01 | XMS_ITS | Encounter Summary ---
Author Organization [facility] Address [address] [place] [address] Care Team Providers Care Distribution Center Supervisor Name Role Phone Fabiano Mosley MD Primary Care Provider [phone] Reason for Referral * Radiology Services (Routine) - Pending Review Specialty Diagnoses / Procedures Referred By Lissa hermosillo Referred To Contact Vascular Lab Diagnoses Bilateral carotid artery stenosis S/P carotid endarterectomy Procedures VAS Carotid Duplex Bilateral Herminia Howe MD [address] [facility] 2L [place] [address] [facility] [address] [place] [address] Referral ID Status Reason Start Date Expiration Date V isits Requested Visits Authorized [id number] Pending Review 02/06/2024 02/05/2025 1 1 * Evaluate (Routine) - Closed Specialty Diagnoses / Procedures Referred By Lissa hermosillo Referred To Contact ENT-Otolaryngology Diagnoses Voice disturbance S/P carotid endarterectomy Herminia Howe MD [address] [facility] [address] [place] [address] [facility] [address] [facility], [place] [address] Referral ID Status Reason Start Date Expiration Date V isits Requested Visits Authorized [id number] Closed Specialty Services Required 02/06/2024 02/05/2025 1 1 Reason for Visit * Reason Comments Post-Op Encounter Details Date Type Department Care Team (Late st Contact Info) Description 02/06/2024 9:00 AM CDT Office Visit [facility] - Vascular Surgery [address] [place] [address], [place] [address] Herminia Howe MD [address] [place] [address] [place] [address] Bilateral carotid artery stenosis (Primary Dx); Voice disturbance; S/P carotid endarterectomy Social History Tobacco Use Types Packs/Day Years [...] and heating? Not hard at all 11/26/2023 [facility] Occupat ional Health - Occupational Stress [...] place to sleep or slept in a skilled nursing (including now)? No 11/26/2023 Sex and Gender [...] 02/06/2024 9:02 AM CD T Respiratory Rate - - Oxygen Saturation 99% 02/06/2024 9:02 AM CDT Inhaled Oxygen Concentration - - Weight 75.8 kg (167 lb) 02/06/2024 9:02 AM CDT Height 185.4 cm (6' 1 ) 02/06/2024 9:02 AM CDT Body Mass Index 22.03 02/06/2024 9:02 AM CDT documented in this encounter Functional [...] * Patient Instructions* Lucinda Dalton RN - 02/06/2024 9:42 AM CDT Follow up with Dr. Howe in 6 months after your scheduled test has been completed. Testing ordered: CAROTID DUPLEX Scheduling will contact you to make an appointment for your test. To make, change, or cancel an appointment call [phone]. [facility] Vascular Surgery Dr. Howe has referred you to be seen by ENT. Scheduling will contact you set up an appointment. To check the status of your referral please call [phone] or [phone]. Address: [place] [address] documented in this encounter Progress Notes * Herminia Howe MD - 02/06/2024 9:25 AM CDT Vascular Surgery History and Physical Encounter Date: 02/06/2024 Patient's Primary Care Physician: Fabiano Mosley MD Name: Cruz Carreon Age: [age] year old Sex: male Date: 02/06/2024 History of Present Illness: Cruz Carreon is a 73 year old male who presents status post left carotid endarterectomy owing to asymptomatic disease. No sx of stroke or TIA since the surgery. Stillhaving issues with hoarseness of the voice. Since surgery, patient has been doing well. Pain has been controlled on current regimen. Denies fevers, chills, nausea, vomiting. Has been able to return to baseline activity slowly. Past Medical History: Past Medical History: Diagnosis [...] 1 (one) tablet by mouth once daily goeuppa-jtquqwxxtwjer-vnntnohn 250-250-65 MG tablet Take 1 (one) tablet [...] Single Tobacco Use Smoking status: Every Day Current packs/day: 1.00 Average packs/day: 1 pack/day for 18.0 years (18.0 ttl pk-yrs) Types: Cigarettes Smokeless tobacco: Never Vaping Use Vaping status: Never Used Substance and Sexual Activity Alcohol use: Not [...] of ROS are listed above Exam Vitals: 02/06/24 0902 BP: 152/94 Pulse: 71 Temp: 97.9 ??F (36.6 ??C) SpO2: 99% Weight: 75.8 kg (167 lb) Height: 1.854 m (6' 1 ) BP 152/94 Pulse 71 Temp 97.9 ??F (36.6 ??C) Ht 1.854 m (6' 1 ) Wt 75.8 kg (167 lb) SpO2 99% Physical Exam: Gen: NAD and A&O x 3 ENT: Normocephalic, EOMI, and incision on neck well healed Resp: unlabored breathing on RA CV: RRR Abd: Soft, Non-distended, and Non-peritoneal, no rebound/guarding MSK: WWP Psych: Appropriate mood and affect Data Recent [...] , ALT , ALKPHOS in the last 16050 hours. @LABRCNT(Protime:3,INR:3,PTT:3) Imaging US AAA Screening Result Date: 02/04/2024 PROCEDURE: US AAA SCREENING, DATE/TIME OF EXAM: 02/04/2024 2:54 PM, LOCATION [facility] INDICATION: R19.8: Pulsatile abdomen ADDITIONAL CLINICAL INFORMATION: [...] aorta and proximal iliac arteries represent atherosclerotic altagracia ques. 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 > Dictated by Humza Chappell MD > Dictated by Humza Chappell MD (Research Worker Kitchen) 02/04/2024 3:28 PM Agustin Galan MD have personally reviewed and interpreted this examination/study. > Interpreting Provider: Agustin Noriega MD on 02/04/2024 6:06 PM US AAA Screening Result Date: 02/04/2024 IMPRESSION: 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 > Dictated by Humza Chappell MD > Dictated by Humza Chappell MD (Research Worker Kitchen) 02/04/2024 3:28 PM I, Agustin Noriega MD have personally reviewed and interpreted this examination/study. > Interpreting Provider: Agustin Noriega MD on 02/04/2024 6:06 PM Assessment: Cruz Carreon is a 73 year old male who presents status post left carotid endarterectomy owing to asymptomatic disease. No sx of stroke or TIA since the surgery. Patient is recoveringwell from surgery however has persistent voice hoarseness and exhaustion. Would be unlikely from surgery given location of dissection, would recommend referral to ENT. Plan: - Will refer to ENT for evaluation of vocal cords - Patient can follow-up in 6 months with another carotid duplex for post- operative monitoring Patient seen and discussed with Dr. Herminia Howe. Flo Rivera MD Vascular Surgery Resident, PGY-3 02/06/24 9:26 AM Attending/Teaching Physician Documentation I have seen and examined the patient with the resident, independently reviewed lab and imaging results and I agree with the findings and plan of care as documented by the resident. Date of Service is date of resident signature in resident note documented in this encounter Plan of Treatment Upcoming Encounters Date Type Department Care Team (Late st Contact Info) Description 07/23/2024 11:00 AM CDT Appointment [facility] VASCULAR US [address] [place] [phone] Herminia Howe MD [address] [place] [address] [place] [phone] 07/23/2024 12:15 PM CDT Office Visit [facility] - Vascular Surgery [address] [place] [address], [place] [address] Herminia Howe MD [address] [place] [address] Scheduled Orders Name Type Priority Associated Diagnoses Orde r Schedule VAS Carotid Duplex Bilateral Vascular Routine Bilateral carotid artery stenosis S/P carotid endarterectomy 1 Occurrences starting 02/06/2024 until 02/05/2025 Scheduled Referrals Name Type Priority Associated Diagnoses Orde r Schedule Ref to ENT Otolaryngology - [facility] Outpatient Referral Routine Voice disturbance S/P carotid endarterectomy 1 Occurrences starting 02/06/2024 until 02/05/2025 documented as of this encounter Goals Goal Patient Goal Type Associated Problems Recent Progress Patient-Stated? Author Patient will adhere to medication regimen General On track( 023 8:59 AM CDT) Dari Gardner, RN documented as of this encounter Visit Diagnoses Diagnosis Bilateral carotid artery stenosis- Primary Occlusion and stenosis of multiple and bilateral precerebral arteries without mention of cerebral infarction Voice disturbance Voice and resonance disorder, unspecified S/P carotid endarterectomy Other postprocedural status documented in this encounter Care Teams Distribution Center Supervisor Relationship Specialty Start Date End Date Fabiano Mosley MD PCP - General 12/06/18 documented as of this encounter
--- OUTSIDE RECORDS SUMMARY | 2024-04-12 09:01 | XMS_ITS | Encounter Summary ---
Author Organization [facility] Address [address] [place] [address] Care Team Providers Care Assorter Name Role Phone Fabiano Mosley MD Primary Care Provider [phone] Encounter Details Date Type Department Care Team (Latest Contact Info) Description 03/31/2024 Travel Social History Tobacco Use Types Packs/Day [...] and heating? Not hard at all 11/26/2023 [place] [facility] ional Health - Occupational Stress [...] place to sleep or slept in a penitentiary (including now)? No 11/26/2023 Sex and Gender [...] Info) Description 07/23/2024 11:00 AM CDT Appointment [facility] VASCULAR US [address] [place] [address] Herminia Howe MD [address] [facility] [address] [facility] [place] [phone] 07/23/2024 12:15 PM CDT Office Visit [facility] - Vascular Surgery [address] [facility], [place] [address] Herminia Howe MD [facility] [facility] 2L [place] [phone] documented as of this encounter Goals Goal Patient Goal Type Associated Problems Recent Progress Patient-Stated? Author Patient will adhere to medication regimen General On track( 023 8:59 AM CDT) Dari Gardner RN documented as of this encounter Visit Diagnoses Not on filedocumented in this encounter Care Teams Assorter Relationship Specialty Start Date End Date Fabiano Mosley MD PCP - General 12/06/18 documented as of this encounter
--- OUTSIDE RECORDS SUMMARY | 2024-04-12 09:01 | XMS_ITS | Encounter Summary ---
Author Organization [facility] Address [address] [place] [address] Care Team Providers Care Investment Specialist Name Role Phone Fabiano Mosley MD Primary Care Provider [phone] Encounter Details Date Type Department Care Team (Latest Contact Info) Description 01/09/2024 Travel Social History Tobacco Use Types Packs/Day [...] and heating? Not hard at all 11/26/2023 [employer] [place] [facility] Occupat ional Health - Occupational Stress [...] place to sleep or slept in a longterm (including now)? No 11/26/2023 Sex and Gender [...] Info) Description 07/23/2024 11:00 AM CDT Appointment [facility] VASCULAR US [address] [place] [address] Herminia Howe MD [address] [facility] [address] [facility] [place] [phone] 07/23/2024 12:15 PM CDT Office Visit [facility] - Vascular Surgery [address] [facility] [place] [place] [address] Herminia Howe MD [facility] 2L DIV [place] [phone] documented as of this encounter Goals Goal Patient Goal Type Associated Problems Recent Progress Patient-Stated? Author Patient will adhere to medication regimen General On track( 023 8:59 AM CDT) Dari Gardner RN documented as of this encounter Visit Diagnoses Not on filedocumented in this encounter Care Teams Investment Specialist Relationship Specialty Start Date End Date Fabiano Mosley MD PCP - General 12/06/18 documented as of this encounter
--- OUTSIDE RECORDS SUMMARY | 2024-04-12 09:02 | XMS_ITS | Encounter Summary ---
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 PAT [address] [place] [address] Herminia Howe MD [address] [facility] 2L [place] [address] Vascular Surgery Discharge Disposition: Home or Self Care Anesthesia Record Procedure Summary Procedure Name Responsible Anesthesiologist Anesthesia Start Time Anesthesia Stop Time LEFT CAROTID ENDARTERECTOMY, cerebral oximetry monitoring and patch closure (Left) Alex Pathak MD 11/26/23 0727 11/26/23 1017 Events Date Time Event Comment 11/26/2023 0727 An Start 0727 Pt In Room 0727 An Start Data 0734 PT Reassessment 0734 Induction 0738 Insert Art Line 0739 An Intubation 0743 PIV Placement 0744 Anes Ready 0758 Quick Note Baseline cerebr al oximetry R 76 and L 78 0759 Time Out Anesthesia part icipated in timeout at the time documented in the record by nursing 0800 Proc Start 0824 An Data Art Lab draw via ar terial line 0828 Quick Note ACT 285 0852 An Data Art Lab draw via ar terial line 0855 Quick Note ACT 218 0934 Quick Note SBP goals 140-1 60 0944 Quick Note Cerebral ox at baseline at end of case 0953 Proc Stop 0956 An Emergence 0957 Extubation 1006 ANPTO2 1006 an stop data 1013 Pt out of Room 1017 An Stop Meds * Agents No agents on file. * Blood No blood administrations on file. Lines, Drains, and Airways Type Details Placement Removal Peripheral IV Date: 11/26/23; Time : 0616; Orientation: Right; Location: Forearm; Gauge: 18 G 11/26/23 0616 by Tamra Stallings RN 11/27/23 1237 by Jaky Wagner RN Arterial Line Date: 11/26/23; Time : 07; Placed By: Alex Pathak MD; Location: radial; Orientation: Left; Gauge: 20; Prep: Chlorhexidine ; Tolerance: Well 11/26/23 0747 by Christofer Fairchild, DO 11/27/23 0830 by Jaky Wagner RN Peripheral IV Date: 11/26/23; Time : 0747; Orientation: Left; Location: Antecubital; Gauge: 16 G 11/26/23 0747 by Christofer Fairchild, DO 11/27/23 0930 by Jaky Wagner, AVI ETT Date: 11/26/23; Time : 0748; Placed By: Alex Pathak MD; Vent: easy mask; Induction: Standard IV; Blade Type: Shanell; Blade Size: 4; Laryngoscopy View: Grade 1 (full cords); Intubation Adjuncts: Stylet; Tube: Endotracheal Tube; Placement: Oral; Tube Type: Cuffed-inflated; Tube Size(mm): 8 MM; Depth of Insertion: 22 CM; Measured From: lips; Attempts: 1; Cuff Infated: Air; Verified By: Direct visualization, Bilateral breath sounds, Chest Auscultation, CO2 Monitor 11/26/23 0748 by Christofer Fairchild, DO 11/26/23 0957 by Cheko Cuba MD Procedural Site (Incision) 11/26/23; 0800; Left, Inner; Throat; Incision site; 11/27/23; 1940 11/26/23 0800 by Haley Pardo RN 11/27/23 1940 by Generic, Auto Release Drain 11/26/23; 921; Lisa Howe MD; 1; Flat; Bulb; 10mm; BARD; [id number]; [id number]; Anterior, Left; Neck; 11/27/23; 1100 11/26/23 0922 by Haley Pardo RN 11/27/23 1100 by Jaky Wagner RN documented in this encounter Social History Tobacco Use Types Packs/Day Years Used Date Smoking Tobacco: Every Day Cigarettes 1 18 Smokeless Tobacco: Never Tobacco Cessation:Ready to Q uit: Not Asked; Counseling Given: Not Answered Alcohol Use Standard Drinks/Week Comments Yes 14 (1 standard drink = 0.6 oz pu re alcohol) couple glasses of wine a day AUDIT-C Answer Date Recorded Q1: How often do you have a drink containing alc ohol? 2-4 times a month 07/03/2022 Average Number of Drinks Not on file 023 Frequency of Binge Drinking Not on file 06/15 Sex and Gender Information Value Date Recorded Sex Assigned at Not on file Gender Identity Not on file Sexual Orientation Not on file documented as of this encounter Functional Status Functional Status Response Date of Assess ment Is person deaf or have serious hearing difficult y? No 08/02/2022 Is person blind or have serious difficulty seein g? No 08/02/2022 Does person have serious dif ficulty walking/climbing stairs? No 08/02/2022 Does person have difficulty dressing/bathing? No 08/02/2022 Does person have difficulty doing errands alone? No 08/02/2022 Cognitive Status Response Date of Assessm ent Does person have difficulty concentrating/remembering/making decisions? No 08/02/2022 documented as of this encounter Discharge Instructions * Patient Instructions* Keesha Virk RN - 11/23/2023 10:11 AM CDT DOS= DAY OF SURGERY aspirin 81 MG chew tablet Commonly known as: Aspirin Instructions: Take 1 (one) tablet by mouth once daily Cont per Dr. Howe xucskst-dnevqvzcrgnsw-lggjbmes 250-250-65 MG tablet Instructions: Take 1 (one) tablet by mouth every 4 hours as needed for Headache Hold dos atorvastatin 40 MG tablet Commonly known as: Lipitor Instructions: Take 1 (one) tablet by mouth once daily Ask about: Which instructions should I use? Ok dos ibuprofen 200 MG tablet Commonly known as: Motrin Instructions: Take 1 (one) tablet by mouth as needed for Pain Hold until surgery multivitamin daily tablet Instructions: Take 1 (one) tablet by mouth daily with food Hold dos SUMAtriptan 50 MG tablet Commonly known as: Imitrex Instructions: TAKE 1 TABLET BY MOUTH FOR HEADACHE IF NO RELIEF REPEAT 1 TAB AFTER AT LEAST 2 HOURS,MAX 4 TABLETS PER DAY Ok dos * Discharge Instr - Supplementary Instructions* Keesha Virk RN - 11/23/2023 10:31 AM CDT *Not following the instructions below may result in your surgery being cancelled or delayed.* DO NOT eat any SOLID food after midnight the night before surgery including gum, cough drops, candy. Unless you have been diagnosed with gastroparesis or delayed stomach emptying, you may have CLEAR LIQUIDS until your arrival at the hospital/at least 2 hours before surgery (examples include any non-dairy and non-pulp containing fruit juices, Gatorade, clear soda such as Sprite or 7-Up (No rainer orroot beer), fruit flavored carbonated beverages, coffee or tea (no cream, milk or sugar), fat-free broth). This does NOT include alcoholic beverages. The physician's office will contact you with the arrival time for your surgery. Same Day Surgery isnot open until 5:30 am, please do not arrive before this time. Bring a list of your medications with the name, dosage and last time taken, If you use an inhaler, CPAP or home oxygen, please bring it with you day of surgery Do not shower the morning or surgery nor apply any lotion, cream, deodorant or makeup the morning of surgery. Do not wear nail belgian, body piercings or contact lenses. Do not use any recreational drugs 72 hours prior to surgery Leave all valuables at home such as jewelry and large amounts of money as we have no way to secure them. You cannot drive yourself home after surgery, take any form of public transportation or use Uber, Lyft or a Taxi. Children Under 14 are not allowed in the [facility] and cannot be left unattended. DIRECTIONS: Address: [address] [place] [id number] Parking Garage: Please park on the ORANGE side of the garage, take the ORANGE elevators to the 1st floor. [facility] at the end of the [facility]. Senior Java Web Application Developer: Enter through the main entrance and take a right. You will walk down a hallway ending in a ???T?? junction with a large TV on the wall. Make a left at the ???T?? junction. [facility] at the end of the hallway. documented in this encounter Medications at Time of Discharge Medication Sig Dispensed Refills Start Date End Date atorvastatin (Lipitor) 40 MG tablet Take 1 (one) tablet by mouth once daily 10/31/2023 SUMAtriptan (Imitrex) 50 MG tablet TAKE 1 TABLET BY MOUTH FOR HEADACHE IF NO RELIEF REPEAT 1 TAB AFTER AT LEAST 2 HOURS, MAX 4 TABLETS PER DAY 11/05/2023 documented as of this encounter Plan of Treatment Upcoming Encounters Date Type Department Care Team (Late st Contact Info) Description 07/23/2024 11:[address] [facility] VASCULAR US [address] [place] [phone] Herminia Howe MD [address] [place] [address] [place] [phone] 07/23/2024 12:15 PM CDT Office Visit [facility] - Vascular Surgery [address] [place] [address], [place] [phone] Herminia Howe MD [address] [place] [phone] documented as of this encounter Goals Goal Patient Goal Type Associated Problems Recent Progress Patient-Stated? Author Patient will adhere to medication regimen General On track( 023 8:59 AM CDT) Dari Gardner RN documented as of this encounter Procedures Procedure Name Priority Date/Time Associated Diagnosis Comments PTT [facility] STAT 11/23/2023 11:34 AM CDT Stenosis of left carotid artery PT-INR [facility] STAT 11/23/2023 11:34 AM CDT Stenosis of left carotid artery TYPE + SCREEN PANEL STAT 11/23/2023 1 1:34 AM CDT Stenosis of left carotid artery CBC W/O DIFFERENTIAL STAT 11/23/2023 11:34 AM CDT Stenosis of left carotid artery BASIC METABOLIC PANEL (CALCIUM TOTAL) STAT 11/23/2023 11:34 AM CDT Stenosis of left carotid artery documented in this encounter Results * (ABNORMAL) BASIC METABOLIC PANEL (CALCIUM TOTAL) (11/23/2023 11:34 AM CDT) BUN 29(H) 7 - 26 mg/dL 11/23/2023 12:42 PM [facility] Creatinine 1.44(H) 0.71 - 1.16 mg/dL 11/23/2023 12:42 PM [facility] Sodium 139 136 - 145 mmol/L 11/23/2023 12:42 PM [facility] Potassium 4.2 3.5 - 4.5 mmol/L 11/23/2023 12:42 PM [facility] Chloride 106 98 - 107 mmol/L 11/23/2023 12:42 PM [facility] CO2 23 22 - 29 mmol/L 11/23/2023 12:42 PM [facility] Glucose 90 70 - 115 mg/dL 11/23/2023 12:42 PM [facility] Calcium 9.4 8.4 - 10.2 mg/dL 11/23/2023 12:42 PM [facility] Anion Gap 10 6 - 16 11/23/2023 12:42 PM [facility] BUN/Creatinine Ratio 20 7 - 23 11/23/2023 12:42 PM [facility] Osmolality Calculated 293 275 - 295 mOsm/kg 11/23/2023 12:42 PM [facility] eGFR by CKD-EPI 52(L) >=90 mL/min/1.7 3 m2 11/23/2023 12:42 PM [facility] Blood BLOOD SPECIMEN / Unknown Lab Venipuncture / Unknown 11/23/2023 11:34 AM CDT 11/23/2023 12:08 PM CDT Herminia Howe MD LAB - CHEMISTRY ORD ERABLES [address] [address], [facility] [phone] * (ABNORMAL) CBC W/O DIFFERENTIAL (11/23/2023 11:34 AM CDT) WBC 9.0 4.0 - 10.7 x10E9/L 11/23/2023 12:15 PM [facility] RBC Count 4.09(L) 4.30 - 5.80 x10E12/L 11/23/2023 12:15 PM [facility] Hemoglobin 13.5 13.3 - 17.5 g/dL 11/23/2023 12:15 PM [facility] Hematocrit 38.5(L) 38.7 - 51.1 % 11/23/2023 12:15 PM [facility] MCV 94.1 80.0 - 98.0 fL 11/23/2023 12:15 PM [facility] MCH 33.0 26.7 - 33.6 pg 11/23/2023 12:15 PM [facility] MCHC 35.1 31.7 - 36.3 g/dL 11/23/2023 12:15 PM CDT [facility] RDW-CV 12.1 11.3 - 14.8 % 11/23/2023 12:15 PM CDT [facility] Platelet Count 197 150 - 420 x10E9/L 11/23/2023 12:15 PM CDT [facility] MPV 11.3 7.8 - 11.4 fL 11/23/2023 12:15 PM CDT [facility] Blood BLOOD SPECIMEN / Unknown Lab Venipuncture / Unknown 11/23/2023 11:34 AM CDT 11/23/2023 12:08 PM CDT Herminia Howe MD LAB - HEMATOLOGY OR DERABLES Performing Organization Address City/[facility]/ZIP Co de Phone Number [address] [address], [place] [phone] * PT-INR [facility] (11/23/2023 11:34 AM CDT) PT 13.2 12.1 - 14.8 Seconds 11/23/2023 12:39 PM CDT [facility] INR 1.0 See Comment 11/23/2023 12:39 PM T [facility] Comment:The suggested therap eutic range for standard coumadin (warfarin) therapy is an INR of 2.0-3.0. For high-risk patients (Mechanical Mitral Valve Prosthesis, etc.), the suggested prophylactic therapeutic range is an INR of 2.5-3.5. Blood BLOOD SPECIMEN / Unknown Lab Venipuncture / Unknown 11/23/2023 11:34 AM CDT 11/23/2023 12:06 PM CDT Herminia Howe MD LAB - COAGULATION O RDERABLES Performing Organization Address [facility]/ZIP Co de Phone Number [facility] [address] [place] [address], [place] [phone] * PTT [facility] (11/23/2023 11:34 AM CDT) APTT 33.1 23.0 - 38.4 Seconds 11/23/2023 12:[address] [facility] Comment:Suggested therapeuti c range for full dose I.V. unfractionated heparin therapy for venous thromboembolism is 71 to 109 seconds. Blood BLOOD SPECIMEN / Unknown Lab Venipuncture / Unknown 11/23/2023 11:34 AM CDT 11/23/2023 12:06 PM CDT Herminia Howe MD LAB - COAGULATION O RDERABLES Performing Organization Address [facility]/ZIP Co de Phone Number [facility] [address] [place] [address], [facility] [phone] * TYPE + SCREEN PANEL (11/23/2023 11:34 AM CDT) Antibody Screen NEG 12:[address] [facility] BLOOD BANK LAB ABO Rh O POS 11/23/2023 12:[address] [facility] BLOOD BANK LAB Blood Bank BLOOD SPECIMEN / Unknown Lab Venipuncture / Unknown 11/23/2023 11:34 AM CDT 11/23/2023 12:09 PM CDT Herminia Howe MD LAB - BLOOD BANK OR DERABLES Performing Organization Address City/[facility]/ZIP Co de Phone Number [facility] BLOOD BANK LAB [address] [place] [address], [place] [phone] documented in this encounter Visit Diagnoses Diagnosis Stenosis of left carotid artery- Primary Occlusion and stenosis of carotid artery without mention of cerebral infarction documented in this encounter Care Teams Special Weapons Unit Officer Relationship Specialty Start Date End Date Fabiano Mosley MD PCP - General 12/06/18 documented as of this encounter
--- OUTSIDE RECORDS SUMMARY | 2024-04-12 09:02 | XMS_ITS | Encounter Summary ---
Author Organization [facility] Address [address] [place] [address] Care Team Providers Care Sales Clerk Name Role Phone Fabiano Mosley MD Primary Care Provider [phone] [phone] Reason for Visit * Auth/Cert (Routine) Specialty Diagnoses / Procedures Referred By Contac t Referred To Contact Diagnoses Stenosis of left carotid artery without cerebral infarction STENOSIS OF LEFT CAROTID ARTERY WITHOUT CEREBRAL INFARCTION [I65.22] Procedures AL TEAEC W/PATCH GRF CRTD VRT SUBCLA NCK INC ENDARTERECTOMY CAROTID (CEA) Referral ID Status Reason Start Date Expiration Date Visits Re quested Visits Authorized [id number] 1 1 Encounter Details Date Type Department Care Team (Latest Contact Info) Description 11/23/2023 9:43 AM CDT - 11/23/2023 11:15 AM CDT Hospital Encounter [facility] EKG/[facility]TER [address] [place] [phone] Herminia Howe MD [address] [facility] 2L [place] [phone] Discharge Disposition: Home or Self Care Social [...] No 08/02/2022 documented as of this encounter Medications at Time of Discharge Medication Sig Dispensed Refills Start Date End Date aspirin (Aspirin) 81 MG chew tablet Take 1 (one) tablet by mouth once daily dbgjwpv-ldeazyvgafqbh-afq feine 250-250-65 MG tablet Take 1 (one) [...] Info) Description 07/23/2024 11:00 AM CDT Appointment [facility] VASCULAR US [address] [place] [phone] [place] [address] [place] [address] [place] [phone] 07/23/2024 12:15 PM CDT Office Visit [facility] - Vascular Surgery [address] [facility], [facility] [place] [address] Herminia Howe MD [address] [place] [address] documented as of this encounter Goals Goal Patient Goal Type Associated Problems Recent Progress Patient-Stated? Author Patient will adhere to medication regimen General On track( 023 8:59 AM CDT) No Dari Torres RN documented as of this encounter Procedures Procedure Name Priority Date/Time Associated Diagnosis Comments EKG 12-LEAD Routine 11/23/2023 9:18 AM CDT Preop testing documented in this encounter Results * EKG 12-LEAD (11/23/2023 9:18 AM CDT) Ventricular Rate 65 BPM [facility] Atrial Rate 65 BPM [facility] P-R Interval 176 ms [facility] QRS Duration ms 128 ms [facility] Q-T Interval ms 430 ms [facility] QTC Calculation (Bezet) 447 ms [facility] Calculated P [place] 67 degrees [facility] Calculated R [place] 82 degrees [facility] Calculated T [place] 49 degrees [facility] Interpretation EKG NORMAL SINUS RHYTHM RIGHT BUNDLE BRANCH BLOCK ABNORMAL ECG NO PREVIOUS ECGS AVAILABLE Confirmed by SRIKANTH TUCKER[facility] [id number] on 11/28/2023 7:48:17 AM [facility] 11/23/2023 9:18 AM CDT 11/28/2023 7:48 AM CDT Herminia Howe MD ECG ORDERABLES [facility] M[facility] documented in this encounter Visit Diagnoses Diagnosis Preop testing- Primary Preoperative examination, unspecified documented in this encounter Care Teams Sales Clerk Relationship Specialty Start Date End Date Fabiano Mosley MD PCP - General 12/06/18 documented as of this encounter
--- OUTSIDE RECORDS SUMMARY | 2024-04-12 09:02 | XMS_ITS | Encounter Summary ---
Author Organization [facility] Address [address] [place] [address] Care Team Providers Care Assembler Tractor Name Role Phone Fabiano Mosley MD Primary Care Provider [phone] Reason for Visit * Auth/Cert (Routine) Specialty Diagnoses / Procedures Referred By Contac t Referred To Contact Diagnoses Stenosis of left carotid artery without cerebral infarction STENOSIS OF LEFT CAROTID ARTERY WITHOUT CEREBRAL INFARCTION [I65.22] Procedures MA TEAEC W/PATCH GRF CRTD VRT SUBCLA NCK INC ENDARTERECTOMY CAROTID (CEA) Referral ID Status Reason Start Date Expiration Date Visits Re quested Visits Authorized [id number] 1 1 Encounter Details Date Type Department Care Team (Late st Contact Info) Description 11/26/2023 7:05 AM CDT - 11/26/2023 9:50 AM CDT Surgery [facility] [address] [place] [phone] Herminia Howe MD [address] [facility] 2L [place] [phone] LEFT CAROTID ENDARTERECTOMY, cerebral oximetry monitoring and patch closure Surgery Details Date/Time Status Location OR Service Patient Class Case Class Case Type Trauma Case? 11/26/2023 7:05 AM Posted [facility] OR Hybrid OR 2 Vascular Electrician Supervisor Admit Surgical Elective > 5 days Panel 1 Procedure LRB Anes Op Region Wound Class Comments LEFT CAROTID ENDARTERECTOMY, cerebral oximetry monitoring and patch closure Left General Baltazar an Surgeon Surgeon Role Service Panel Herminia Howe MD Primary Vascular 1 Herminia Howe MD Primary Vascular 1 Case Notes KW 11/20 Special Needs PER , PT TO CONTINUE HIS ASPIRIN WITH CEREBRAL OXIMETRY MONITORING documented in this encounter Social History Tobacco [...] and heating? Not hard at all 11/26/2023 [facility] - [...] Sign Reading Time Taken Comments Blood Pressure 145/104 11/26/2023 7:00 AM CDT Pulse 64 11/26/2023 7:00 AM CDT Temperature 36.6 ??C (97.9 ??F) 11/26/2023 6:10 AM CD T Respiratory Rate 15 11/26/2023 7:00 AM CDT Oxygen Saturation 97% 11/26/2023 7:00 AM CDT Inhaled Oxygen Concentration - - Weight 73.7 kg (162 lb 8 oz) [...] Physician Discharge Summary Patient ID: Liz Turcios [id number] 73 year old 1950 Admit date: 11/26/2023 Discharge date and time: 11/27/2023 Admitting Physician: Herminia Howe MD Discharge Physician: Dr. Howe Present on admission: Left carotid artery stenosis Discharge Diagnoses: Same s/p left carotid endarterectomy Admission Condition: poor Discharged Condition: fair Indication for Admission: Mr. Turcios is a 73 yo male with pmhx [...] for close neurological checks which remained intact. [facility] was consulted for ICU management. He remained HDS. His pain has been controlled. He has tolerated diet and he has ambulated. His drain has been removed and he is voiding spontaneously. He is stable for d/c with f/u in 1 wk for a wound check and 1 month with a repeat carotid duplex and screen US for AAA. Consults: [facility] Significant Diagnostic Studies: See hospital course AMI/HF [...] MG chew tablet Commonly known as: Aspirin gulpvwa-vgktzzhwnhlsw-bogphwcn 250-250-65 MG tablet atorvastatin 40 MG tablet [...] Continue your Aspirin and Statin Contact the [facility] Vascular Surgery Office at for questions and concerns regarding your incision: redness, drainage, swelling at incision, increased pain, or for chills/fever/ temperature greater than 101 degrees OR for a new/worsening headache unrelieved by Tylenol. After hours # is [phone] Seek emergency medical attention for signs of [...] you need to make/change an appt call [phone] Signed: JOSE De La Torre 11/27/2023 documented [...] Continue your Aspirin and Statin Contact the [facility] Vascular Surgery Office at for questions and concerns regarding your incision: redness, drainage, swelling at incision, increased pain, or for chills/fever/ temperature greater than 101 degrees OR for a new/worsening headache unrelieved by Tylenol. After hours # is [phone] Seek emergency medical attention for signs of [...] you need to make/change an appt call [phone] documented in this encounter Medications at Time of Discharge Medication Sig Dispensed Refills Start Date End Date aspirin (Aspirin) 81 MG chew tablet Take 1 (one) tablet by mouth once daily hmwvpoi-itfqccbfhlzjm-mka feine 250-250-65 MG tablet Take 1 (one) [...] with family via wheelchair. Pt did not grape picker prescription given for his headache because [...] of care: Home Prior to admit provider: Gi Patient Goals: Home with dght to transport [...] Preferred Pharmacy: [facility] [address] [facility] [id number] [address] [facility] [id number] Advance Directive: No Advance Directive READMISSION RISK SCORE is 12 at 10:25 AM 11/27/2023. Met with patient Family Support (name and phone): Extended Emergency Contact Information Primary Emergency Contact: Amelia Turcios [place] Mobile Relation: Sister Traffic Circuit Engineer needed? No Secondary Emergency Contact: Samara Turcios Mobile Relation: Daughter Patient or corporate representative requests care coordination reach out to family or caregiver listed above regarding discharge planning and at time of discharge? No Patient/Family provided with list of resources? No Preferred Provider / High Quality Network List given?: No Reason for provider choice: Pt. choice - Pt. choice Equipment at Home: None List DME pt. requires but does not have.: None Slasher Sawyer Referral: No Will continue to follow. For any questions or needs please contact: Name: Lucy Hernandez RN * Carlos Enrique Braswell MD - 11/27/2023 9:34 AM CDT Images from the original note were not included. [facility] Anesthesia Critical Care Service Resident Progress Note [...] (no deficits), palpitations (nuclear stress test in 2018 @ [facility]SH, unremarkable, EF: 62%), lung fibrosis [...] PRN bisacodyl EC, 5 mg, QDAY PRN ovuwicieus-kmjduhkpjdzyu-fagbezvk, 1 tablet, BID PRN hydrALAZINE, 5 mg, [...] 0659 11/27/23 07 - 11/28/23 0659 Shift 2274-5939 2917-0316 24 Hour Total 0020-4052 4212-8343 24 Hour Total INTAKE I.V.(mL/kg/hr) 1500(1.7) 1500(0.8) Shift Total(mL/kg) 1500(20.4) 1500(20.4) OUTPUT Urine(mL/kg/hr) 350(0.4) 650(0.7) 1000(0.6) 250 250 Drains 45 30 75 Shift Total(mL/kg) 395(5.4) 680(9.2) 1075(14.6) 250(3.4) 250(3.4) NET 1100 -718 425 -250 -250 Weight (kg) 73.7 73.7 73.7 73.7 [...] Labs: Hematology: Recent Labs Component Name 11/27/23 0716 11/26/23211911/23/23 1134 WBC 10.2 9.0 9.0 HGB 11.2* 11.1* 13.5 HCT 31.7* 31.5* 38.5* PLTCOUNT 170 166 197 MCV 93.0 92.9 94.1 MCH 32.8 32.7 33.0 MCHC 35.3 35.2 35.1 Chemistry: Recent Labs Component Name 11/27/2371511/26/23211911/23/23 1134 NA 133* 134* 139 POTASSIUM 3.9 [...] of Care Glucose No results for input(s): EPMAAPD3ISK in the last 80350 hours. Liver and Pancreatic Function: No results for input(s): PROT , ALB , DBILI , TBILI , ALT , AST , ALKPHOS , USHA , AMYLASE , LIPASE in the last 63278 hours. Coagulation: Recent Labs Component Name 11/23/23 1134 08/02/22 1206 PT 13.2 12.7 INR 1.0 1.0 PTT 33.1 - Cardiac Enzymes: No results for input(s): CKMB , CKTOTAL , TROPONINI , CK , TROPIHS , TROPIHSSNGL , DELTATNIBASE in the last 18102 hours. Arterial Blood Gas: Recent Labs Component Name 11/26/23 0827 PH 7.33* PCO2 43 PO2 241* YMG9GCS 22.7 BE -3.2* Drug Levels: No results for input(s): TACROLIMUS , VANCTROUGH , DIGOXIN in the last 04949 hours. Virology/Bacteriology: No results for input(s): SARSCOV2 , RINFLUANAA , RINFLUBNAA , MRSADPCR in the last 10098 hours. Blood Bank: Recent Labs Component Name [...] Enrique Braswell MD Anesthesia Critical Care, PGY-1 [facility] 11/26/2023 12:30 PM Attestation: Please see note [...] PRN bisacodyl EC, 5 mg, QDAY PRN umrlqlfcqp-sjtfllzhbilcz-endvyzti, 1 tablet, BID PRN hydrALAZINE, 5 mg, [...] (36.8 ??C) Date 11/26/23699 - 11/27/2365811/27/23699 - 11/28/23658 Shift 9583-7070 2280-5044 24 Hour Total 0498-3281 6511-6266 24 Hour Total INTAKE I.V.(mL/kg/hr) 1500(1.7) 1500(0.8) Shift Total(mL/kg) 1500(20.4) 1500(20.4) OUTPUT Urine(mL/kg/hr) 350(0.4) 650(0.7) 1000(0.6) Drains 45 30 75 Shift Total(mL/kg) 395(5.4) 680(9.2) 1075(14.6) NET 1105 -675 425 Weight (kg) 73.7 73.7 73.7 73.7 [...] Data Review: Hematology: Recent Labs Component Name 11/27/2371511/26/23211911/23/23 1134 WBC 10.2 9.0 9.0 HGB 11.2* 11.1* 13.5 HCT 31.7* 31.5* 38.5* PLTCOUNT 170 166 197 MCV 93.0 92.9 94.1 MCH 32.8 32.7 33.0 MCHC 35.3 35.2 35.1 Chemistry: Recent Labs Component Name 11/27/2316 11/26/23211911/23/23 1134 NA 133* 134* 139 POTASSIUM [...] Point of Care: No results for input(s): [id number] in the last 81575 hours. Liver and Pancreatic Function: No results for input(s): PROT , ALB , DBILI , TBILI , ALT , AST , ALKPHOS , USHA , LIPASE in the last 49569 hours. Coagulation: Recent Labs Component Name 11/23/234 08/02/22 1206 PT 13.2 12.7 INR 1.0 1.0 PTT 33.1 - Cardiac Enzymes: No results for input(s): CKMB , CKTOTAL , TROPONINI , CK , TROPIHS , TROPIHSSNGL , DELTATNIBASE in the last 43006 hours. Arterial Blood Gas: Recent Labs Component Name 11/26/23 0827 PH 7.33* PCO2 43 PO2 241* [id number] 22.7 BE -3.2* Drug Levels: No results for input(s): TACROLIMUS , VANCTROUGH , DIGOXIN in the last 36099 hours. Virology/Bacteriology: No results for input(s): SARSCOV2 , RINFLUANAA , RINFLUBNAA , MRSADPCR in the last 28089 hours. Blood Bank: Recent Labs Component Name [...] asa and statin at home. Drain removed. August d/c a-line. GI: At nutrition risk : [...] towards critical care time.) Derrick Bush MD, [facility] 11/27/2023 8:57 AM * Kaity Almeida RN - 11/27/2023 5:24 AM CDT Problem: Tobacco Use Goal: Inpatient tobacco-use cessation counseling participation 11/27/2023 0523 by Kaity Almeida RN Outcome: Progressing 11/27/2023 0522 by Kaity Almeida RN Outcome: Progressing Problem: Pain/Discomfort Goal: Patient exhibits reduced pain/discomfort as evidenced by pain scores 11/27/2023 0523 by Kaity Almeida RN Outcome: Progressing 11/27/2023 0522 by Kaity Almeida RN Outcome: Progressing Goal: Patient uses pharmacological and non-pharmacological pain management strategies. 11/27/2023 0523 by Kaity Almeida RN Outcome: [...] AM CDT Regarding overnight VS, Mr. Turcios's Marianne has shown lower BP's off and on, [...] ??C), Max:98 ??F (36.7 ??C) Date 11/25/23 07 - 11/26/23 0659(Not Admitted) 11/26/23699 - 11/27/23 0659 Shift 0893-2408 1218-8507 24 Hour Total 8309-4890 9986-6956 24 Hour Total INTAKE I.V. 1500 1500 [...] Point of Care: No results for input(s): GBNVCCQ8CKJ in the last 03127 hours. Liver and Pancreatic Function: No results for input(s): PROT , ALB , DBILI , TBILI , ALT , AST , ALKPHOS , USHA , LIPASE in the last 79228 hours. Coagulation: Recent Labs Component Name 11/23/23 1134 08/02/22 1206 PT 13.2 12.7 INR 1.0 1.0 PTT 33.1 - Cardiac Enzymes: No results for input(s): CKMB , CKTOTAL , TROPONINI , CK , TROPIHS , TROPIHSSNGL , DELTATNIBASE in the last 77382 hours. Arterial Blood Gas: Recent Labs Component Name 11/26/23 0827 PH 7.33* PCO2 43 PO2 241* [id number] 22.7 BE -3.2* Drug Levels: No results for input(s): TACROLIMUS , VANCTROUGH , DIGOXIN in the last 08980 hours. Virology/Bacteriology: No results for input(s): SARSCOV2 , RINFLUANAA , RINFLUBNAA , MRSADPCR in the last 67365 hours. Blood Bank: Recent Labs Component Name [...] towards critical care time.) Derrick Bush MD, [facility] 11/26/2023 11:23 AM documented in this encounter [...] artery embolization. He was seen byDr. Yip [id number] for BPH with bothersome symptoms despite tamsulosin [...] draped in the usual sterile fashion. A chemical blender film of pelvis wasobtained, which was unremarkable. [...] documented. Following a series of exchanges, a 5.5-Ghanaian vascular sheath was placed. The left internal [...] artery embolization. He was seen byDr. Yip [id number] for BPH with bothersome symptoms despite tamsulosin [...] draped in the usual sterile fashion. A chemical blender film of pelvis wasobtained, which was unremarkable. [...] documented. Following a series of exchanges, a 5.5-Ghanaian vascular sheath was placed. The left internal [...] intervention ncluding but not limited bleeding, infection, RI, , stroke described. Pt wishes to proceed. Date of Service is date of resident signature in resident note documented in this encounter Consult Notes * Carlos Enrique Braswell MD - 11/26/2023 12:30 PM CDT Images from the original note were not included. [facility] Anesthesia Critical Care Service Consultation for Co-Management [...] mouth once daily Yes Merly Monson MD nmjmhwt-snqwhkwefoxwo-njaeibdp 250-250-65 MG tablet Take 1 (one) tablet by mouth every 4 hours as needed for Headache Yes Merly Monson MD atorvastatin (Lipitor) 40 MG tablet Take 1 (one) tablet by mouth once daily 10/31/23 Yes ProviderMerly MD ibuprofen (Motrin) 200 MG tablet Take 1 (one) tablet by mouth as needed for Pain Yes ProviderMerly MD multivitamin daily tablet Take 1 (one) tablet by mouth daily with food Yes Merly Monson MD SUMAtriptan (Imitrex) 50 MG tablet TAKE 1 TABLET BY MOUTH FOR HEADACHE IF NO RELIEF REPEAT 1 TAB AFTER AT LEAST 2 HOURS, MAX 4 TABLETS PER DAY 11/05/23 Yes ProviderMerly MD Current Facility-Administered Medications Medication 0.9% NaCl [...] numbness/tingling, tremor Skin: rash Physical Exam: Date 11/25/23 0700 - 11/26/23 0659(Not Admitted) 11/26/23 07 - 11/27/23 0659 Shift 2663-1489 2795-3820 24 Hour Total 3035-0097 6730-9796 24 Hour Total INTAKE I.V. 1500 1500 [...] of Care Glucose No results for input(s): HFNUQGQ9TIJ in the last 99785 hours. Liver and Pancreatic Function: No results for input(s): PROT , ALB , DBILI , TBILI , ALT , AST , ALKPHOS , USHA , AMYLASE , LIPASE in the last 91362 hours. Coagulation: Recent Labs Component Name 11/23/23 1134 08/02/22 1206 PT 13.2 12.7 INR 1.0 1.0 PTT 33.1 - Cardiac Enzymes: No results for input(s): CKMB , CKTOTAL , TROPONINI , CK , TROPIHS , TROPIHSSNGL , DELTATNIBASE in the last 32795 hours. Arterial Blood Gas: Recent Labs Component Name 11/26/23 0827 PH 7.33* PCO2 43 PO2 241* [id number] 22.7 BE -3.2* Drug Levels: No results for input(s): TACROLIMUS , VANCTROUGH , DIGOXIN in the last 46020 hours. Virology/Bacteriology: No results for input(s): SARSCOV2 , RINFLUANAA , RINFLUBNAA , MRSADPCR in the last 50021 hours. Blood Bank: Recent Labs Component Name [...] Eleazar Braswell MD Anesthesia Critical Care, PGY-1 [facility] 11/26/2023 12:30 PM Associated attestation - Derrick [...] Role: * Herminia Howe MD - Primary Timing Adjuster(s): na Anesthesia Type: general ETT Complications: none Findings: as expected EBL: 100 blood loss Urine Output : no IV Fluid Intake: not totalled 10 flat pricila drain placed Drains: Drain 1 Flat Bulb Anterior;Left Neck (Active) Specimen(s): ID Type Source Tests Collected by Time Destination A : Left Carotid Plaque Biopsy, Excision Soft Tissue, Other PATHOLOGY TISSUE Hermiina Howe MD11/26/2023 0857 Implant(s): Implant Name Type Inv. Item Serial No. General Doc Lot No. LRB No. Used Action VASCU-GUARD peripheral Vascular Patch 1x6cm [id number] Left 1 Implanted Herminia Howe MD * Operative - Herminia Howe MD - 11/26/2023 12:00 AM CDT Operative Report NAME: LIZ TURCIOS : 1950 AGE: 73 PROC DATE: 11/26/2023 SEX: M SURGEON: Herminia Howe MD PREOPERATIVE DIAGNOSIS: Left carotid artery stenosis. POSTOPERATIVE DIAGNOSIS: Left carotid artery stenosis. OPERATION PERFORMED: Left carotid endarterectomy. SURGEON: Herminia Howe MD VISITOR SERVICES TECHNICIAN: Dr. Braden Brooks REASON FOR PROCEDURE: Gentleman [...] 2-0 silk suture, and the external was encircled using a vessel loop. The patient was given 100 units/kg of heparin IV. Clamps were applied in the following order after 3 minutes and an ACT was greater than 280 seconds, and it was internal, external, and common. A longitudinal arteriotomy was then made, and a standard endarterectomy was performed to smooth tapering endpoint on the internal and eversion on the external. Bovine patch was cut to s ize. It should be noted also that the [...] needed a single stitch of repair. A 10 flat PRICILA drain was then placed at the base of the neck, and the wound was irrigated and closed using interrupted 2-0 Vicryl followed by 4-0 Monocryl. Sponge and needle count at the end of the procedure were correct. ESTIMATED BLOOD LOSS: 150 mL URINE OUTPUT AND INTRAVENOUS FLUIDS: Urine output not totaled neither was IV fluids. The patient moved all 4 extremities and obeyed commands prior to leaving the operating room. Herminia Howe MD Leigha/washington .[id number] .[id number] Doc ID: [id number] Voice Job ID: [id number] documented in this encounter Plan of Treatment Upcoming Encounters Date Type Department Care Team (Late st Contact Info) Description 07/23/2024 11:00 AM CDT Appointment [facility]ASCULAR [facility] [address] [place] [address] Herminia Howe MD [address] 2L DIV [place] [phone] 07/23/2024 12:15 PM CDT Office Visit [facility] - Vascular Surgery [address] [facility] [place] [phone] Herminia Howe MD [address] [place] [address] 2L [place] [address] documented as of this encounter Goals Goal [...] stenosis, asymptomatic, left ACT LR - POCT ([facility]) Routine 11/26/2023 10:49 AM CDT PATHOLOGY TISSUE Routine 11/26/2023 8:57 AM CDT Stenosis of left carotid artery without cerebral infarction BLOOD GAS+COOX+LYTES+META B ARTERIAL POCT Routine 11/26/2023 8:27 AM CDT ACT LR - POCT ([facility]) Routine 11/26/2023 8:27 AM CDT ACT LR - POCT ([facility]) Routine 11/26/2023 7:53 AM CDT ACT LR - POCT ([facility]) Routine 11/26/2023 7:25 AM CDT MA TEAEC W/PATCH GRF CRTD VRT SUBCLA NCK [...] MD > Dictated by Humza Chappell MD (Soaker Helper) 02/04/2024 3:28 PM IAgustin MD have personally reviewed and interpreted this examination/study. > Interpreting Provider: Agustin Noriega MD on 02/04/2024 6:06 PM Narrative 02/04/2024 6:06 PM CDT PROCEDURE: ??US AAA SCREENING, DATE/TIME OF EXAM: ??02/04/2024 2:54 PM, LOCATION ??[facility] INDICATION: R19.8: Pulsatile abdomen ADDITIONAL CLINICAL [...] DATE/TIME OF EXAM: 02/04/2024 2:54 PM, LOCATION [facility] INDICATION: R19.8: Pulsatile abdomen ADDITIONAL CLINICAL [...] MD > Dictated by Humza Chappell MD (Soaker Helper) 02/04/2024 3:28 PM IAgustin MD have personally reviewed and interpreted this examination/study. > Interpreting Provider: Agustin Noriega MD on 02/04/2024 6:06 PM Viola Browne APRN-THIAGO US ORDERABLES * VAS Carotid Duplex Bilateral (02/04/2024 1:49 PM CDT) Anatomical Region Laterality Modality Neck Intravascular Ul trasound 02/04/2024 1:22 PM CDT Narrative Procedure Note Jabari Williamson MD - 02/04/2024 Viola Browne APRN-TAX ADVISOR VASCULAR LAB O RDERABLES * (ABNORMAL) CBC W AUTO DIFFERENTIAL (11/27/2023 7:16 AM CDT) WBC 10.2 4.0 - 10.7 x10E9/L 11/27/2023 7:45 AM [facility] RBC Count 3.41(L) 4.30 - 5.80 x10E12/L 11/27/2023 7:45 AM [facility] Hemoglobin 11.2(L) 13.3 - 17.5 g/dL 11/27/2023 7:45 AM [facility] Hematocrit 31.7(L) 38.7 - 51.1 % 11/27/2023 7:45 AM [facility] MCV 93.0 80.0 - 98.0 fL 11/27/2023 7:45 AM [facility] MCH 32.8 26.7 - 33.6 pg 11/27/2023 7:45 AM [facility] MCHC 35.3 31.7 - 36.3 g/dL 11/27/2023 7:45 AM [facility] RDW-CV 12.5 11.3 - 14.8 % 11/27/2023 7:45 AM [facility] Platelet Count 170 150 - 420 x10E9/L 11/27/2023 7:45 AM [facility] MPV 11.8(H) 7.8 - 11.4 fL 11/27/2023 7:45 AM [facility] Neutrophil % 66.7 41.0 - 74.0 % 11/27/2023 7:45 AM [facility] Lymphocyte % 24.3 17.0 - 47.0 % 11/27/2023 7:45 AM [facility] Monocyte % 6.7 3.0 - 11.0 % 11/27/2023 7:45 AM [facility] Eosinophil % 1.4 0.0 - 7.0 % 11/27/2023 7:45 AM [facility] Basophil % 0.6 0.0 - 1.6 % 11/27/2023 7:45 AM [facility] Immature Granulocytes % 0.3 0.0 - 1.0 % 11/27/2023 7:45 AM [facility] Neutrophil Absolute 6.83 1.60 - 7.50 x10E9/L 11/27/2023 7:45 AM [facility] Lymphocyte Absolute 2.48 1.00 - 4.40 x10E9/L 11/27/2023 7:45 AM [facility] Monocyte Absolute 0.68 0.15 - 1.00 x10E9/L 11/27/2023 7:45 AM [facility] Eosinophil Absolute 0.14 0.00 - 0.60 x10E9/L 11/27/2023 7:45 AM [facility] Basophil Absolute 0.06 0.00 - 0.13 x10E9/L 11/27/2023 7:45 AM [facility] Blood BLOOD SPECIMEN / Unknown Venipuncture / Unknown 11/27/2023 7:16 AM CDT 11/27/2023 7:19 AM T Derrick Bush MD LAB - HEMATOLOGY ORD ERABLES [facility] [address] [place] [address], [facility] [phone] * (ABNORMAL) BASIC METABOLIC PANEL (CALCIUM TOTAL) (11/27/2023 7:16 AM T) BUN 22 7 - 26 mg/dL 11/27/2023 7:45 AM [facility] Creatinine 1.24(H) 0.71 - 1.16 mg/dL 11/27/2023 7:45 AM [facility] Sodium 133(L) 136 - 145 mmol/L 11/27/2023 7:45 AM [facility] Potassium 3.9 3.5 - 4.5 mmol/L 11/27/2023 7:45 AM [facility] Chloride 105 98 - 107 mmol/L 11/27/2023 7:45 AM [facility] CO2 18(L) 22 - 29 mmol/L 11/27/2023 7:45 AM [facility] Glucose 126(H) 70 - 115 mg/dL 11/27/2023 7:45 AM CDT [facility] Calcium 8.7 8.4 - 10.2 mg/dL 11/27/2023 7:45 AM [facility] Anion Gap 10 6 - 16 11/27/2023 7:45 AM [facility] BUN/Creatinine Ratio 18 7 - 23 11/27/2023 7:45 AM T [facility] Osmolality Calculated 281 275 - 295 mOsm/kg 11/27/2023 7:45 AM T [facility] eGFR by CKD-EPI 62(L) >=90 mL/min/1.7 3 m2 11/27/2023 7:45 AM T [facility] Blood BLOOD SPECIMEN / Unknown Venipuncture / Unknown 11/27/2023 7:16 AM CDT 11/27/2023 7:19 AM CDT Derrick Bush MD LAB - CHEMISTRY DIPTI SCHMITT Performing Organization Address City/[facility]/ZIP Co de Phone Number [address] [address], [facility] [phone] * PHOSPHORUS BLOOD (11/26/2023 9:20 PM CDT) Phosphorus 4.0 2.8 - 5.1 mg/dL 11/26/2023 9:58 PM CDT [facility] Blood BLOOD SPECIMEN / Unknown Venipuncture / Unknown 11/26/2023 9:20 PM CDT 11/26/2023 9:26 PM CDT Derrick Bush MD LAB - CHEMISTRY DIPTI SCHMITT [address] [address], [facility] [phone] * MAGNESIUM BLOOD (11/26/2023 9:20 PM CDT) Magnesium 1.8 1.6 - 2.6 mg/dL 11/26/2023 9:58 PM CDT [facility] Blood BLOOD SPECIMEN / Unknown Venipuncture / Unknown 11/26/2023 9:20 PM CDT 11/26/2023 9:26 PM CDT Derrick Bush MD LAB - CHEMISTRY DIPTI SCHMITT [facility] [address] [place] [phone], [facility] [phone] * (ABNORMAL) CBC W/O DIFFERENTIAL (11/26/2023 9:20 PM CDT) WBC 9.0 4.0 - 10.7 x10E9/L 11/26/2023 9:42 PM CDT [facility] RBC Count 3.39(L) 4.30 - 5.80 x10E12/L 11/26/2023 9:42 PM T [facility] Hemoglobin 11.1(L) 13.3 - 17.5 g/dL 11/26/2023 9:42 PM T [facility] Hematocrit 31.5(L) 38.7 - 51.1 % 11/26/2023 9:42 PM T [facility] MCV 92.9 80.0 - 98.0 fL 11/26/2023 9:42 PM T [facility] MCH 32.7 26.7 - 33.6 pg 11/26/2023 9:42 PM T [facility] MCHC 35.2 31.7 - 36.3 g/dL 11/26/2023 9:42 PM T [facility] RDW-CV 12.3 11.3 - 14.8 % 11/26/2023 9:42 PM T [facility] Platelet Count 166 150 - 420 x10E9/L 11/26/2023 9:42 PM T [facility] MPV 11.5(H) 7.8 - 11.4 fL 11/26/2023 9:42 PM T [facility] Blood BLOOD SPECIMEN / Unknown Venipuncture / Unknown 11/26/2023 9:20 PM CDT 11/26/2023 9:26 PM CDT Derrick Bush MD LAB - HEMATOLOGY ORD ROYAL [facility] [address] [place] [address], [facility] [phone] * (ABNORMAL) BASIC METABOLIC PANEL (CALCIUM TOTAL) (11/26/2023 9:20 PM CDT) BUN 21 7 - 26 mg/dL 11/26/2023 9:58 PM [facility] Creatinine 1.26(H) 0.71 - 1.16 mg/dL 11/26/2023 9:58 PM [facility] Sodium 134(L) 136 - 145 mmol/L 11/26/2023 9:58 PM [facility] Potassium 4.3 3.5 - 4.5 mmol/L 11/26/2023 9:58 PM [facility] Chloride 106 98 - 107 mmol/L 11/26/2023 9:58 PM [facility] CO2 17(L) 22 - 29 mmol/L 11/26/2023 9:58 PM [facility] Glucose 106 70 - 115 mg/dL 11/26/2023 9:58 PM [facility] Calcium 8.8 8.4 - 10.2 mg/dL 11/26/2023 9:58 PM [facility] Anion Gap 11 6 - 16 11/26/2023 9:58 PM [facility] BUN/Creatinine Ratio 17 7 - 23 11/26/2023 9:58 PM [facility] Osmolality Calculated 281 275 - 295 mOsm/kg 11/26/2023 9:58 PM [facility] eGFR by CKD-EPI 61(L) >=90 mL/min/1.7 3 m2 11/26/2023 9:58 PM [facility] Blood BLOOD SPECIMEN / Unknown Venipuncture / Unknown 11/26/2023 9:20 PM CDT 11/26/2023 9:26 PM T Derrick Bush MD LAB - CHEMISTRY DIPTI SCHMITT [facility] [address] [place] [address], [facility] [phone] * ACT LR - POCT ([facility]) (11/26/2023 10:49 AM CDT) ACT LR 243 See result comments sec 11/28/2023 7:33 AM CDT [facility] Blood BLOOD SPECIMEN / Unknown 11/26/2023 10:49 AM CDT 11/28/2023 7:33 AM CDT Narrative [facility] - 11/28/2023 7:33 AM CDT ACT-LR Therapeutics ranges are: Cardiac geoscience laboratory technician = 200-300 seconds Sheath pull = ACT [...] - COAGULATION O RDERABLES Performing Organization Address City/State/[facility] Co de Phone Number [facility] [address] [place] [address], [facility] [phone] * PATHOLOGY TISSUE (11/26/2023 8:57 AM CDT) Case Report Surgical Pathology Report ? Case: [id number] ? Authorizing Provider: ??Herminia Howe MD ? Collected: ? 11/26/2023 08:57 AM ? Ordering Location: ? [facility] ?Received: ?11/26/2023 11:16 AM ? Pathologist: ? Juana Anne MD ? Specimen: ?Carotid Artery, Left Carotid Plaque ? 11/28/2023 4:11 PM [facility] Final Diagnosis Carotid artery plaque, left, endarterectomy: - Calcific atherosclerosis with organized thrombus 11/28/2023 4:11 PM [facility] Microscopic Description and Comment Microscopic examination substantiates the above captioned diagnosis. 11/28/2023 4:11 PM [facility] Clinical History Left carotid artery stenosis 11/28/2023 4:11 PM [facility] Gross Description The requisition and specimen(s) are identified with the patient's name Liz Turcios . Received in formalin, specimen A , and consists of three portions of marcelino-yellow irregular rubbery tissue ranging from 0.8 to 2.2 cm in greatest dimension which are step sectioned. The cut surfaces show marcelino-yellow to marcelino-brown laminated rubbery tissue without calcification. Bead Wire Taper sections are submitted in a single cassette labeled A1. RB 11/28/2023 4:11 PM [facility] Pathologist Location at [facility] 11/28/2023 4:11 PM [facility] Disclaimer The performance characteristics of all immunohistochemical and indirect immunofluorescence stains (if any) cited in this report were determined by the Histopathology Laboratory of [facility]. Some of these tests were developed by [...] (teaching) pathologist. 11/28/2023 4:11 PM CDT [facility] Embedded Images 11/28/2023 4:11 PM CDT [facility] Biopsy, Excision CAROTID ARTERY STRUCTURE / Unknown 11/26/2023 8:57 AM CDT 11/26/2023 11:16 AM CDT Comment:Pre-op diagnosis: STENOSIS OF LEFT CAROTID ARTERY WITHOUT CEREBRAL INFARCTION [I65.22] Herminia Howe MD LAB - PATHOLOGY/CYT OLOGY ORDERABLES Performing Organization Address [facility]/ZIP Co de Phone Number [facility] [address] [place] [address], [facility] [phone] * ACT LR - POCT ([facility]) (11/26/2023 8:27 AM CDT) Pathologist [facility] ACT LR 229 See result comments sec 11/26/2023 1:18 PM CDT [facility] Blood BLOOD SPECIMEN / Unknown 11/26/2023 8:27 AM CDT 11/26/2023 1:18 PM CDT Narrative [facility] - 11/26/2023 1:18 PM CDT ACT-LR Therapeutics ranges are: Cardiac geoscience laboratory technician = 200-300 seconds Sheath pull = ACT [...] - COAGULATION O RDERABLES Performing Organization Address City/[facility]/ZIP Co de Phone Number [facility] [address] [place] [address], [facility] [phone] * (ABNORMAL) BLOOD GAS+COOX+LYTES+METAB ARTERIAL POCT (11/26/2023 8:27 AM CDT) pH Arterial 7.33(L) 7.35 - 7.45 pH 11/26/2023 8:27 AM [facility] pO2 Arterial 241(H) 80 - 100 mmHg 11/26/2023 8:27 AM [facility] pCO2 Arterial 43 35 - 45 mmHg 8:27 AM [facility] HCO3 Arterial 22.7 20.0 - 30.0 mmol/L 11/26/2023 8:27 AM [facility] BE Arterial -3.2(L) -2.0 - 2.0 mmol/L 11/26/2023 8:27 AM [facility] Oxyhemoglobin Arterial 96.4 % 11/26/2023 8:27 AM [facility] Dexoyhemoglobin (HHB) % <1.0 % 11/26/2023 8:27 AM [facility] Methemoglobin 1.2 0.0 - 2.0 % 11/26/2023 8:27 AM [facility] Carboxyhemoglobin 1.8 0.0 - 2.0 % 2023 8:27 AM [facility] Comment:Carboxyhemoglobin No rmal Concentration: Non-smokers: 0-2%; Smokers: 0- 9%; Toxic: >20% O2 Content Arterial 17.0 Interpret within clinical context ml/dL 11/26/2023 8:27 AM [facility] Hemoglobin by COOX 12.1 12.0 - 17.6 g/dL 11/26/2023 8:27 AM [facility] O2 Saturation Arterial 99 90 - 100 % 11/26/2023 8:27 AM [facility] Sodium Whole Blood 134(L) 135 - 145 mmol/L 11/26/2023 8:27 AM [facility] Potassium Whole Blood 4.0 3.5 - 5.5 mmol/L 11/26/2023 8:27 AM [facility] Chloride WB 105 78 - 107 mmol/L 11/26/2023 8:27 AM [facility] Calcium Ionized 1.19 mmol/L 8:27 AM [facility] Ionized Calcium pH Adjusted 1.16(L) 1.19 - 1.34 mmol/L 11/26/2023 8:27 AM CDT [facility] Anion Gap (AG) Arterial 6 6 - 16 mmol/L 11/26/2023 8:27 AM CDT [facility] Glucose WB 91 70 - 115 mg/dL 11/26/2023 8:27 AM CDT [facility] Lactic Acid Whole Blood 0.7 <=2.0 mmol/L 11/26/2023 8:27 AM CDT [facility] Blood, arterial ARTERIAL BLOOD SPECIMEN / Unknown 11/26/2023 8:27 AM CDT 11/26/2023 8:28 AM CDT Herminia Howe MD LAB - POINT OF CARE ORDERABLES Performing Organization Address [facility]/ZIP Co de Phone Number [address] [address], [place] [phone] * ACT LR - POCT ([facility]) (11/26/2023 7:53 AM CDT) ACT LR 218 See result comments sec 11/26/2023 1:18 PM CDT [facility] Blood BLOOD SPECIMEN / Unknown 11/26/2023 7:53 AM CDT 11/26/2023 1:18 PM CDT Narrative [facility] - 11/26/2023 1:18 PM CDT ACT-LR Therapeutics ranges are: Cardiac geoscience laboratory technician = 200-300 seconds Sheath pull = ACT [...] - COAGULATION O RDERABLES Performing Organization Address [facility]/ZIP Co de Phone Number [address] [address], [place] [phone] * ACT LR - POCT ([facility]) (11/26/2023 7:25 AM CDT) ACT LR 285 See result comments sec 11/26/2023 1:18 PM CDT [facility] Blood BLOOD SPECIMEN / Unknown 11/26/2023 7:25 AM CDT 11/26/2023 1:18 PM CDT Narrative [facility] - 11/26/2023 1:18 PM CDT ACT-LR Therapeutics ranges are: Cardiac geoscience laboratory technician = 200-300 seconds Sheath pull = ACT [...] - COAGULATION O RDERABLES Performing Organization Address City/[facility]/ZIP Co de Phone Number [address] [address], [place] [phone] * TYPE + SCREEN PANEL (11/26/2023 6:14 AM CDT) Antibody Screen NEG 7:13 AM CDT [facility] ABO Rh O POS 11/26/2023 7:13 AM CDT [facility] Blood Bank BLOOD SPECIMEN / Unknown Line Draw / Unknown 11/26/2023 6:14 AM CDT 11/26/2023 6:22 AM CDT Herminia Howe MD LAB - BLOOD BANK OR DERABLES [facility] [address] [place] [address], [place] [phone] documented in this encounter Visit Diagnoses Diagnosis Carotid stenosis, asymptomatic, left- Primary Stenosis of left carotid artery Occlusion and stenosis of carotid artery without mention of cerebral infarction Lung nodule, solitary Stenosis of left carotid artery without cerebral infarction Pulsatile abdomen Other symptoms involving abdomen and pelvis Stenosis of left carotid artery without cerebral [...] PM CDT 3 mL acetaminophen (Tylenol) tablet 650 mg 650 mg, [...] tolerate oral intake $ Given 11/27/2023 6:32 A M CDT 650 mg $ Given 11/26/2023 11:26 [...] BUPivacaine PF (Marcaine PF) 0.5 % injection PRN, Starting on Sun11/26/23 at 0813, Until Sun11/26/23 at 1036, Intra-op $ Given 11/26/2023 8:13 AM CDT 30 mL Operative Site ohrsgfqasf-tahxbzlxszlwb-xoq feine (Fioricet) 50-325-40 MG tablet 1 tablet 1 tablet, Oral, 2 TIMES DAILY PRN, Headache, Migraine, Starting on Sun11/26/23 at 1215, Until Sun11/27/23 at 1445, Do not exceed 6 tablets in 24 hours $ Given 11/27/2023 9:35 AM CDT 1 tablet $ Given 11/26/2023 2:01 PM CDT 1 tablet heparin (Dialysis/OR: Not for IV Use, No Dual Sign Off) 1,000 Units in 0.9% NaCl IV 500 mL irrigation PRN, Starting on Sun11/26/23 at 0813, Until Sun11/26/23 at 1036, Intra-op $ Given 11/26/2023 8:13 AM CDT 1,000 Units Operative Site heparin injection 5,000 Units 5,000 Units, Subcutaneous, [...] 1445, IV given slowly over 1 minute. labetalol (Normodyne; Trandate) injection 5 mg 5 mg, Intravenous, EVERY 10 MIN PRN, Hypertension, Other, SBP > 160 or MAP > 100. Hold if HR < 70. Thank you., Starting on Sun11/26/23 at 1838, Until Sun11/27/23 at 1445, Max IV dose is 300mg/24 hours. lidocaine (Xylocaine) 1 % injection PRN, Starting on Sun11/26/23 at 0814, Until Sun11/26/23 at 1036, Intra-op $ Given 11/26/2023 8:14 AM CDT 20 mL Operative Site melatonin tablet 3 mg 3 mg, Oral, [...] Currently Infusing)2113 ($ Given - Provider: Kaity Almeida RN) 0633 ($ Given - Provider: Kaity Almeida RN) acetaminophen (Tylenol) tablet 1,000 mg (COMPLETED) 1,000 [...] Hinojosa RN)2326 ($ Given - Provider: Kaity Almeida, AVI) 0632 ($ Given - Provider: Kaity Almeida RN)1200 (Due) heparin injection 5,000 Units 5,000 Units, Subcutaneous, EVERY 8 HOURS, First dose on Sun11/26/23 at 1400, Until Discontinued 1405 ($ Given - Provider: Sonia Basurto RN)2113 ($ Given - Provider: Kaity Almeida RN) 0632 ($ Given - Provider: Kaity Almeida [...] min. 1407 ($ Given - Provider: Sonia Basurto, AVI) 0821 ($ Given - Provider: Jaky Wagner RN) Continuous Medication Order 11/25/2023 11/26/2023 11/27/2023 0.9% [...] MD - Comment: Given to sterile field) voqevxiofb-hhdazhfdglmhz-vrt feine (Fioricet) 50-325-40 MG tablet 1 tablet [...] intake documented in this encounter Care Teams Assembler Tractor Relationship Specialty Start Date End Date Fabiano Mosley MD PCP - General 12/06/18 documented as of this encounter
--- OUTSIDE RECORDS SUMMARY | 2024-04-12 09:02 | XMS_ITS | Encounter Summary ---
Author Organization [facility] Address [address] [place] [address] Care Team Providers Care Continuous Linter Drier Operator Name Role Phone Fabiano Mosley MD Primary Care Provider [phone] Reason for Visit * Reason Onset Date Comments Confirmation 11/22/2023 Confirmation for SX 11/26/2023 @ [facility] with Dr. Herminia Howe. Encounter Details Date Type Department Care Team (Late st Contact Info) Description 11/22/2023 Telephone [facility] - Vascular Surgery [address] [place] [address], [place] [address] Herminia Howe MD [address] [place] [address] [place] [address] Confirmation (Confirmation for SX 11/26/2023 @ [facility] with Dr. Herminia Howe./) Social History Tobacco Use Types Packs/Day Years [...] No 08/02/2022 documented as of this encounter Miscellaneous Notes * Telephone Encounter - Manuel Americo - 11/22/2023 3:02 PM CDT I called the pt to confirm their SX w/ Dr. Howe for 11/26/2023 @ [facility]. I spoke to the pt directly and reminded them that they need to arrive at the hospital by 5:30am & that they need to be NPO after MN the night before SX with the exception of the approved list of clear liquids that need ann stopped 2 hours prior to the stated start time of their SX. I also verified that they had CONTINUED to take their blood thinner, ASPIRIN as they were instructed. documented in this encounter Plan of Treatment Upcoming Encounters Date Type Department Care Team (Late st Contact Info) Description 07/23/2024 11:00 AM CDT Appointment [facility] VASCULAR US [address] [place] [address] Herminia Howe MD [address] [place] [address] 2L [place] [phone] 07/23/2024 12:15 PM CDT Office Visit [facility] - Vascular Surgery [address] [place] [address], [place] [address] Herminia Howe MD [facility] [facility] 2L [place] [phone] documented as of this encounter Goals Goal Patient Goal Type Associated Problems Recent Progress Patient-Stated? Author Patient will adhere to medication regimen General On track( 023 8:59 AM CDT) Dari Gardner, RN documented as of this encounter Visit Diagnoses Not on filedocumented in this encounter Care Teams Continuous Linter Drier Operator Relationship Specialty Start Date End Date Fabiano Mosley MD PCP - General 12/06/18 documented as of this encounter
--- OUTSIDE RECORDS SUMMARY | 2024-04-12 09:02 | XMS_ITS | Encounter Summary ---
Author Organization [facility] Address [address] [place] [address] Care Team Providers Care Screen And Cyclone Repairer Name Role Phone Fabiano Mosley MD Primary Care Provider [phone] Encounter Details Date Type Department Care Team (Latest Contact Info) Description 11/26/2023 Travel Social History Tobacco Use Types Packs/Day [...] and heating? Not hard at all 11/26/2023 [place] [facility] - Occupational Stress [...] place to sleep or slept in a nursing home (including now)? No 11/26/2023 Sex and Gender [...] Description 07/23/2024 11:00 AM CDT Appointment [facility] VASCULAR US [address] [place] [phone] Herminia Howe MD [address] [facility] 2L [facility] [place] [place] [phone] 07/23/2024 12:15 PM CDT Office Visit [facility] - [facility] [address] [facility], [place] [address] Herminia Howe MD [facility] 2L [place] [phone] documented as of this encounter Goals Goal Patient Goal Type Associated Problems Recent Progress Patient-Stated? Author Patient will adhere to medication regimen General On track( 023 8:59 AM CDT) Dari Gardner RN documented as of this encounter Visit Diagnoses Not on filedocumented in this encounter Care Teams Screen And Cyclone Repairer Relationship Specialty Start Date End Date Fabiano Mosley MD PCP - General 12/06/18 documented as of this encounter
--- OUTSIDE RECORDS SUMMARY | 2024-04-12 09:02 | XMS_ITS | Encounter Summary ---
Author Organization [facility] Address [address] [place] [address] Care Team Providers Care Microsoft Bi Consultant Name Role Phone Fabiano Mosley MD Primary Care Provider [phone] Reason for Visit * Auth/Cert (Routine) Specialty Diagnoses / Procedures Referred By Contac t Referred To Contact Diagnoses Stenosis of left carotid artery without cerebral infarction STENOSIS OF LEFT CAROTID ARTERY WITHOUT CEREBRAL INFARCTION [I65.22] Procedures [place] TEAEC W/PATCH GRF CRTD VRT SUBCLA NCK INC ENDARTERECTOMY CAROTID (CEA) Referral ID Status Reason Start Date Expiration Date Visits Re quested Visits Authorized [id number] 1 1 Encounter Details Date Type Department Care Team (Latest Contact Info) Description 11/23/2023 11:16 AM CDT - 11/23/2023 11:59 PM CDT Hospital Encounter [facility] OP DRAW STATION [address] [place] [phone] Herminia Howe MD [address] [facility] 2L [place] [phone] Discharge Disposition: Home or Self Care Social [...] 1 (one) tablet by mouth once daily tqnwjiv-qoozzhfoaevam-equ feine 250-250-65 MG tablet Take 1 (one) [...] Info) Description 07/23/2024 11:00 AM CDT Appointment [facility] US [address] [place] [phone] Herminia Howe MD [address] [place] [address] [place] [address] 07/23/2024 12:15 PM CDT Office Visit [facility] - Vascular [facility], [facility] [place] [phone] Herminia Howe MD [address] [place] [address] documented as of this encounter Goals Goal Patient Goal Type Associated Problems Recent Progress Patient-Stated? Author Patient will adhere to medication regimen General On track( 023 8:59 AM CDT) Dari Gardner RN documented as of this encounter Visit Diagnoses Not on filedocumented in this encounter Care Teams Microsoft Bi Consultant Relationship Specialty Start Date End Date Fabiano Mosley MD PCP - General 12/06/18 documented as of this encounter
--- OUTSIDE RECORDS SUMMARY | 2024-04-12 09:02 | XMS_ITS | Encounter Summary ---
Author Organization [facility] Address [address] [place] [address] Care Team Providers Care Flight Operations Coordinator Name Role Phone Fabiano Mosley MD Primary Care Provider [phone] Reason for Visit * Auth/Cert (Routine) Specialty Diagnoses / Procedures Referred By Contac t Referred To Contact Diagnoses Stenosis of left carotid artery without cerebral infarction STENOSIS OF LEFT CAROTID ARTERY WITHOUT CEREBRAL INFARCTION [I65.22] Procedures OR TEAEC W/PATCH GRF CRTD VRT SUBCLA NCK INC ENDARTERECTOMY CAROTID (CEA) Referral ID Status Reason Start Date Expiration Date Visits Re quested Visits Authorized [id number] 1 1 Encounter Details Date Type Department Care Team (Late st Contact Info) Description 11/26/2023 7:27 AM CDT Anesthesia Event [facility] [address] [place] [phone] Alex Pathak MD [address] [place] [address] [place] [address] Cheko Cuba MD [address] [place] [address] [place] [phone] Anesthesia Record Procedure Summary Procedure Name Responsible [...] out of Room 1017 An Stop Meds Name Total ceFAZolin 2,000 mg IVPB 2 g fentaNYL 100 mcg/2ml injection 200 mcg lidocaine PF 2% 100 mg propofol 200mg/20mL injection 200 mg rocuronium 50 mg/5 mL injection 100 mg phenylephrine 100 mcg/mL syringe 100 mcg dexamethasone 10 mg/ml PF injection 4 mg ondansetron 4mg/2mL injection 4 mg sugammadex 200 mg/2mL injection 200 mg norepinephrine 8 mg/250 ml infusion 0.42 mg heparin 1000 units/ml injection 8,000 Un its calcium chloride 10% injection 300 mg protamine 10 mg/mL injection 20 mg NS (0.9% NaCl) 250 mL LR (Lactated ringers) 250 mL Isolyte-S infusion 1,000 mL * Agents Name Insp. N2O Exp. Sevoflurane Exp. N2O O2 Air Insp. Sevoflurane N2O * Blood No blood administrations on file. Lines, Drains, and Airways Type Details Placement Removal Peripheral IV Date: 11/26/23; Time : 615; Orientation: Right; Location: Forearm; Gauge: 18 G 11/26/23 0616 by Tamra Stallings RN 11/27/23 1237 by Jaky Wagner RN Arterial Line Date: 11/26/23; Time : 746; Placed By: Alex Pathak MD; Location: radial; Orientation: Left; Gauge: 20; Prep: Chlorhexidine ; Tolerance: Well 11/26/23 0747 by Christofer Fairchild DO 11/27/23 0830 by Jaky Wagner, AVI Peripheral IV Date: 11/26/23; Time : 746; Orientation: Left; Location: Antecubital; Gauge: 16 G 11/26/23 0747 by Christofer Fairchild DO 11/27/23 0930 by Jaky Wagner, AVI ETT Date: 11/26/23; Time : 48; Placed By: Alex Pathak MD; Vent: easy [...] Auscultation, CO2 Monitor 11/26/23 0748 by Christofer Fairchild DO 11/26/23 0957 by Cheko Cuba MD Procedural Site (Incision) 11/26/23; 0800; Left, Inner; Throat; Incision site; 11/27/23; 1940 11/26/23 0800 by Haley Pardo RN 11/27/23 1940 by Generic, Auto Release Drain 11/26/23; 921; Lisa Howe MD; 1; Flat; Bulb; 10mm; BARD; [id number]; [id number]; Anterior, Left; Neck; 11/27/23; 1100 11/26/23 0922 by Haley Pardo RN 11/27/23 1100 by Jaky Wagner, AVI documented in this encounter Social History Tobacco [...] and heating? Not hard at all 11/26/2023 [facility] - Occupational Stress [...] place to sleep or slept in a intermediate (including now)? No 11/26/2023 Sex and Gender [...] No 08/02/2022 documented as of this encounter Progress Notes * Alex Pathak MD - 11/26/2023 1:43 PM CDT ANESTHESIA POSTOP EVALUATION NOTE Procedure: LEFT CAROTID ENDARTERECTOMY, cerebral oximetry monitoring and patch closure (Left) Cruz Carreon is a 73 year old male Patient Vitals for the past 6 hrs: BP Temp Pulse Resp SpO2 Pain Rating Score #1 Pain Scale/Observation 11/26/23 1015 (!) 165/103 98 ??F (36.7 ??C) 87 -- 100 % 6 N 11/26/23 1020 154/97 -- 84 15 100 % -- -- 11/26/23 1025 145/87 -- 75 14 100 % -- -- 11/26/23 1030 136/83 98 ??F (36.7 ??C) 81 12 98 % 6 N 11/26/23 1035 135/77 -- 79 14 95 % -- -- 11/26/23 1040 -- -- -- -- 95 % -- -- 11/26/23 1045 131/80 -- 79 13 95 % 6 N 11/26/23 1050 -- -- -- -- 94 % -- -- 11/26/23 1055 -- -- -- -- 96 % -- -- 11/26/23 1100 132/81 -- 81 14 94 % 6 N 11/26/23 1105 -- -- 77 14 95 % -- -- 11/26/23 1110 -- -- 76 14 95 % -- -- 11/26/23 1115 115/73 -- 75 14 94 % 6 N 11/26/23 1130 133/82 -- 77 14 96 % 6 N 11/26/23 1145 126/78 -- 75 15 98 % 6 N 11/26/23 1152 -- -- -- -- -- 7 N 11/26/23 1200 113/73 97.7 ??F (36.5 ??C) 76 10 96 % 6 N 11/26/23 1215 119/75 -- 77 9 96 % -- -- 11/26/23 1230 119/73 -- 79 11 96 % -- -- 11/26/23 1235 -- -- 79 9 96 % 6 N 11/26/23 1326 -- -- -- -- -- 10 N Anesthesia Type: general ETT Pre-op Diagnosis Codes: * Stenosis of left carotid artery without cerebral infarction [I65.22] Mental Status: awake Neuro Status: No numbness, tingling or visual disturbances Respiratory Function: requires O2 Cardiac Function: stable Postop Pain: acceptable to the patient Postop Hydration: adequate Postop Nausea: none Assessment: no apparent anesthetic complications, patient tolerated procedure well and no evidence of recall Patient Disposition: Release from Anesthesia Care NOTABLE EVENTS: No notable events documented. * Alex Pathak MD - 11/23/2023 9:49 AM CDT ANESTHESIA PREOPERATIVE EVALUATION NOTE Procedure: LEFT CAROTID ENDARTERECTOMY (Left) Vitals: Patient Vitals for the past 6 hrs: BP Temp Pulse Resp SpO2 11/23/23 1103 -- 97.8 ??F (36.6 ??C) 70 16 100 % 11/23/23 1024 169/99 -- -- -- -- LMP: No LMP for male patient. OB Status: unknown ANESTHESIA PRE-EVALUATION NOTE History of Present Illness: Cruz Carreon is a 73 year old male presenting for pre-operative evaluation and optimization prior to undergoing a left carotid endarterectomy on 11/[address] Howe for stenosis of left carotid artery without cerebral infarction. PMHx is otherwise significant for HTN (no medication), hx of TIA (OSH, no neuro imaging available),hx of syncope (7 episodes in past, possibly d/t carotid stenosis), palpitations (nuclear stress test in 2019 @ OSH, unremarkable, EF: 62%), lung fibrosis (no inhalers, breathing @ baseline), 18 pack year smoking history (3/4 ppd), BPH (s/p unilateral prostate artery embolization in 2022) and etoh usage (14 drinks per week, quit 4 months ago) Denies prior complications from anesthesia. Allergies: NKA Functional capacity: > or equal to 4 METs with no cardiopulmonary symptoms Previous Airway Management: No Hx Available The patient is a current smoker. The patient was instructed to abstain from smoking on day of procedure. Physical Exam: Orientation X3 Airway/Mallampati Score: II Mouth Opening Distance: 3 fingerwidths Neck ROM: full TM Distance: > 3 FB Teeth: normal Heart: normal - S1 S2 Lungs: clear to ausculation bilaterally Abdomen Exam: soft and normal Review of Systems: History of anesthetic complications: No Sleep Apnea Risk: No Malignant Hyperthermia: No GERD: No Poor Exercise Tolerance: No Recent Chest Pain: No Shortness of Breath: No AICD/Pacemaker: No Renal Disease: No Diagnostic Tests: ECG(s) reviewed: Yes (11/23/23: NSR, right bundle branch block) Stress Test(s) reviewed: Yes (2019: No ischemic change, unremarkable study). Lab(s) reviewed: Yes (08/02/22: CBC, CMP WNL). Other Findings: Carotid Duplex US 11/19/23: There is 80-99% stenosis of the left internal carotid artery. There is less than 50% stenosis of the right internal carotid artery. CT Chest 10/29/18: - Subpleural linear lung opacities in the lung bases, predominantly at the left lung base, or stable compared with 07/25/2018 and 04/25/2018 02/01/18 likely parenchymal bands related to scarring. - Stable subpleural opacities likely related to subapical pleural fibrosis. This is stable dating back to 11/01/2017. No suspicious lesion is identified. - Mild upper lobe centrilobular and paraseptal emphysema. - No new or progressive lesions identified. - Stable ascending aortic ectasia measuring 4 cm. Start of PAT Evaluation: - if BP is poorly controlled (eg SBP >180 or DBP >110) then contact Dr. Cheung or AIC - if patient taking GINO-I or ARB or Entresto then hold ONLY AM dose on DOS unless severe CHF or poorly controlled HTN This evaluation was based on PAT clinic visit I. Perioperative Cardiac Risk Index Stratification based on 2014 ACC/AHA Guidelines for patients undergoing noncardiac surgery Perioperative risk of a Major Adverse Cardiac Event (MACE) during hospitalization. Add one point (0-6) for each positive RCRI (Revised Cardiac Risk Indicator) 1. Is the Surgical Procedure High-Risk? YES 2. History of Ischemic Heart Disease? NO If yes then paste summary of most recent cath / stress tests under Other Additional Findings/Comments section above: 3. History of CHF? no If yes then paste summary of most recent TTE / MARYLOU under Other Additional Findings/Comments sectionabove: Murmur? no if yes and without recent echocardiogram then may need TTE contact Dr. Cheung or CATA 4. History of Cerebrovascular Disease? Prior TIA or stroke yes If yes then paste summary of most any relevant neurovascular imaging or carotid duplex results under Other Additional Findings/Comments section above: Carotid bruit? no if yes then may need carotid duplex - contact Dr. Cheung or CATA 5. Insulin-Dependent Diabetes? no No results for input(s): HGBA1C , A1C , [id number] , EAG inthe last 72035 hours. Insulin pump? no if yes then patient was instructed to continue at 75% basal rate on DOS, AND 1164 placed? no 6. Preoperative Creatinine > 2 mg/dl? no Baseline Cr? 1.00 Total RCRI / MACE score 2 Points >= 6.6% Functional capacity > 4 METS? yes If MACE < 1%, no further testing required. Proceed to surgery. Patient is at low risk of MACE. If MACE > 1% Elevated risk. Need to assess the patient's functional capacity. 4 METs = Can walk up a flight of steps or a hill or walk on level ground at 3 mph If > 4 METs. Proceed to surgery. If < 4 METs or unknown functional capacity then discuss with attending, as further workup may beindicated. II. Consults: NO Copy and paste relevant results Follow up must be written if consult N/A III. CIEDs: Does patient have a CIED (cardiovascular implantable electronic device eg: PM, AICD)? no If yes then copy and paste interrogation report here. Timing of interrogation should be within 1 year for PM and Within 6 months for AICD [place] Information needed (director speech and hearing, mode, indication for CIED, battery life, magnet function): Call [phone] with all patients with CIEDs: IV. Anticoagulants: Are they receiving antiplatelet/anticoagulant medications (besides ASA)? What is the periop plan? NO Follow up N/A V. Previous blood transfusion? no If potential for large EBL: then obtain 1st T&S in PAT clinic (unless previously done and no transfusions since). Order repeat T&S (aka re-type) for DOS :If chart review only and h/o previous transfusions without recent T&S, then need to come in for T&S as above and order retype for DOS Patients with previous transfusions may have developed alloantibodies to donor RBC surface antigens, which may cause hemolytic or delayed hemolytic transfusion reactions upon subsequent exposure to donor PRBCs. . Known ANYA or STOP-BANG> 5: no Snoring, Tired, Observed apnea, high blood Pressure, BMI>35, Age>50, Neck circumference>18 If yes then: update Epic problem list to include: ANYA If patient has already diagnosed ANYA and is being admitted then initiate order set: ANYA --> Pul Inpatient Sleep Apnea Standing orders (order set 4525) 1. Also click Home CPAP for hospital use if applicable. 2. Select Phase of Care under options tab in upper right corner. 3. Choose post-op and sign (not sign and hold) phase of care and select the scheduled procedure. Remind patient to bring home unit if staying overnight. If pt has STOP-BANG >=5 with undiagnosed ANYA and is being admitted then order: IP Consult to Nurse Leader (comment regarding consult for undiagnosed ANYA) - Follow steps 2 and 3 above If pt has STOP-BANG >=5 with undiagnosed ANYA and is outpatient and interested in setting up a sleep study then: - send GoMore message to JERMAINE and dylon Cheung Patient was educated about the potential implications of ANYA on their perioperative course and recommendations for follow-up care were addressed - including inpatient consult(s) as above? no VII. Known or suspected difficult airway no and complete previous airway management section above If yes then: update Epic problem list to include: difficult airway and call Dr. Skye or AIC VIII. Frailty screen: FRAIL Total Score (Total points=5): 2 X. Suboxone (Buprenorphine / Naloxone) therapy? N/A XI. GLP-1 Agonists No XII. Most recent EKG: EKG needed within 6 months if: (ASA >= 3 OR any RCRI) AND non-low risk procedure XIII. Additional testing needed within 3 months prior to DOS (if possible, else on DOS): - CBC w/o Diff if ASA >= 3 OR expected blood loss >250 OR previously abnormal - BMP is ASA >= 3 OR taking diuretics, K+ supplements, GINO-I, ARBs OR any RCRI - CMP (instead of BMP) for patient with chronic liver disease or previously abnormal - PT/ PTT/ INR if recent use of anticoagulants OR scheduled for major vascular procedures includingaortic and carotid stents / aneurysm coiling / TIPS Additional testing needed on DOS : - EPOC blood glucose for patients w/ DM - EPOC whole blood K+ for patient with ESRD or poorly controlled K+ Labs ordered today including PAT and surgeon orders: CBC, CMP, PT/INR, PTT, T&S, and EKG Labs/tests ordered or in need of review on DOS: T&S Summary: Cruz Carreon is a 73 year old male presenting for LEFT CAROTID ENDARTERECTOMY (Left). They have an ASA score of 3 and a RCRI / MACE score of 2 Points >= 6.6% Follow up results - have ALL the above ordered labs and vital signs been reviewed? YES - with the following notable abnormalities Cr: 1.44, BUN 29, GFR 52 They ARE OPTIMIZED - PAT EVALUATION COMPLETE Scooter Wright MD 11/23/2023 11:18 AM for this procedure. Vital signs updated in chart? yes Preoperative plan was discussed w/ PAT attending End of PAT Evaluation: ANESTHESIA PLAN ASA Score: 3 Anesthesia Plan: general Planned Induction: intravenous Planned Adjuncts: art line Anesthetic plan was discussed with: patient The patient's procedural Anesthetic Plan was discussed with the anesthesiologist. BMI, Height, Weight Tobacco History Estimated body mass index is 21.9 kg/m?? as calculated from the following: Height as of 08/02/22: 1.854 m (6' 1 ). Weight as of 11/14/23: 75.3 kg (166 lb). Social History Tobacco Use Smoking Status Every Day ??? Packs/day: 1.00 ??? Years: 18.00 ??? Additional pack years: 0.00 ??? Total pack years: 18.00 ??? Types: Cigarettes Smokeless Tobacco Never Alcohol History Drug History Social History Substance and Sexual Activity Alcohol Use Yes ??? Alcohol/week: 14.0 standard drinks of alcohol ??? Types: 14 Glasses of wine per week Comment: couple glasses of wine a day Social History Substance and Sexual Activity Drug Use Not Currently ??? Types: Marijuana Comment: occasionally smokes pot, states its been 8 months Outpatient Medications: Inpatient Medications: No outpatient medications have been marked as taking for the 11/23/23 encounter (Hospital Encounter) with [facility] PAT ROOM 1. No current facility-administered medications for this encounter. Allergies: No Known Allergies Relevant Problems Problem List: Patient Active Problem List Diagnosis Date Noted ??? Heart palpitations 12/10/2018 Priority: Not Prioritized ??? Chronic prostatitis 12/28/2017 Priority: Not Prioritized ??? Fibrosis, lung (HCC) 11/27/2017 Priority: Not Prioritized ??? Lung nodule, solitary 11/05/2017 Priority: Not Prioritized ??? Elevated PSA 10/25/2017 Priority: Not Prioritized ??? Benign prostatic hyperplasia with urinary obstruction 10/11/2017 Priority: Not Prioritized ??? Erectile dysfunction 10/11/2017 Priority: Not Prioritized ??? Fatigue 10/11/2017 Priority: Not Prioritized ??? Dysuria 10/11/2017 Priority: Not Prioritized Medical History: Past Medical History: Diagnosis Date ??? Arthritis ??? Essential hypertension ??? Syncope and collapse Surgical History: Past Surgical History: Procedure Laterality Date ??? COLONOSCOPY WITH POLYPECTOMY ??? Fracture Repair Right right arm ORIF ??? PROSTATE BIOPSY, NEEDLE ??? Septoplasty ??? 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 unknown OB History No obstetric history on file. Covid Vaccine: Lab Results: No results found for requested labs within last 120 days. No results found for requested labs within last 120 days. documented in this encounter Procedure Notes * Christofer Fairchild DO - 11/26/2023 7:48 AM CDTAssociated Order(s): ETT Placement Endotracheal Tube Placement: Patient Location: OR. Procedure: intubation ([id number]) Procedure Section: Sedation: IV sedation. Indications for Airway Management: airway protection Induction: standard IV Patient Position: sniffing Mask Ventilation: easy. Blade Type: Shanell Blade [...] Findings: ETT in proper place. Dentition unchanged? Yes Difficult Airway? No. Staff Section Anesthesia Provider: Alex Pathak MD Provider #1: Cheko Cuba MD, Performed the procedure. * Christofer Fairchild DO - 11/26/2023 7:47 AM CDTAssociated Order(s): Peripheral IV Placement Peripheral IV Line Placement: Procedure: IV start ([id number]) Procedure Section: Skin Prep: Betadine. Orientation: left Location: antecubital Catheter Gauge: 16 Number of Attempts: 1. Adjuncts: ultrasound Procedure Tolerance: tolerated well. Staff Section Anesthesia Provider: Christofer Fairchild DO, Performed the procedure * Christofer Fairchild DO - 11/26/2023 7:47 AM CDTAssociated Order(s): Arterial Line Placement Arterial Line Placement Procedure Note Patient Location: OR. Procedure: Arterial Line ([id number]) Procedure Section Indications: continuous blood pressure monitoring. Consent: informed consent was obtained for the procedure. Alternatives Discussed: alternative treatment Skin Prep: Chloraprep. Orientation: Left. Site: radial. Sterile Technique: cap, mask, sterile gloves and small sterile fenestrated drape. Gauge: 20. Seldinger Technique Used? Yes Procedure Tolerance: tolerated well. Events: none. Staff Section Anesthesia Provider: Alex Pathak MD, Performed the procedure Provider #1: Christofer Fairchild DO, Performed the procedure. documented in this encounter Miscellaneous Notes * Anesthesia Transfer of Care - Cheko Cuba MD - 11/26/2023 10:18 AM CDT ANESTHESIA TRANSFER OF CARE NOTE Today's Date: 11/26/2023 Date of : 1950 Patient: Cruz Carreon Procedure(s): LEFT CAROTID ENDARTERECTOMY, cerebral oximetry monitoring and patch closure Surgeon(s): Primary: Herminia Howe MD Preop Diagnosis: Pre-op Diagnois: * Stenosis of left carotid artery without cerebral infarction [I65.22] Pre-op Meds (From admission, onward) Start Stop Status Route Frequency Ordered 11/26/23 0600 acetaminophen (Tylenol) tablet 1,000 mg 11/26/23 0626 Completed PO PRE-OP ONCE 11/26/23 0547 11/26/23 0804 albuterol (Proventil;Ventolin) (5 MG/ML) 0.5% nebulizer solution 2.5 mg -- Verified IN POST-OP MULTIPLE 11/26/23 0804 11/26/23 0813 BUPivacaine PF (Marcaine PF) 0.5 % injection -- Sent PRN 11/26/23 0813 11/26/23 0804 diphenhydrAMINE (Benadryl) injection 25 mg -- Verified IV ONCE PRN 11/26/23 0804 11/26/23 0804 fentaNYL (PF) (Sublimaze) injection 25 mcg -- Verified IV EVERY 10 MIN PRN 11/26/23 0804 11/26/23 0804 fentaNYL (PF) (Sublimaze) injection 50 mcg -- Verified IV EVERY 10 MIN PRN 11/26/23 0804 11/26/23 0813 heparin (Dialysis/OR: Not for IV Use, No Dual Sign Off) 1,000 Units in 0.9% NaCl IV 500 mL irrigation -- Sent PRN 11/26/23 0814 11/26/23 0804 hydrALAZINE (Apresoline) injection 5 mg -- Verified IV POST-OP MULTIPLE 11/26/23 0804 11/26/23 0804 HYDROmorphone (Dilaudid) injection 0.5 mg -- Verified IV EVERY 10 MIN PRN 11/26/23 0804 11/26/23 0804 labetalol (Normodyne; Trandate) injection 5 mg -- Verified IV POST-OP MULTIPLE 11/26/23 0804 11/26/23 0600 lactated ringers infusion -- Dispensed IV PRE-OP CONTINUOUS 11/26/23 0547 11/26/23 0830 lactated ringers infusion -- Dispensed IV CONTINUOUS 11/26/23 0804 11/26/23 0814 lidocaine (Xylocaine) 1 % injection -- Sent PRN 11/26/23 0814 11/26/23 0804 naloxone (Narcan) injection 0.04 mg -- Verified IV POST-OP MULTIPLE 11/26/23 0804 11/26/23 0804 ondansetron (Zofran) injection 4 mg -- Verified IV ONCE PRN 11/26/23 0804 11/26/23 0804 prochlorperazine (Compazine) injection 10 mg -- Verified IV ONCE PRN 11/26/23 0804 Post-op Diagnosis: * Stenosis of left carotid artery without cerebral infarction [I65.22] . No Known Allergies Vitals: No data found. Lines, Drains, and Airways Type Details Placement Removal Peripheral IV Date: 11/26/23; Time: 06; Orientation: Right; Location: Forearm; Gauge: 18 G 11/26/23 0616 by Tamra Stallings RN Arterial Line Date: 11/26/23; Time: 07; Placed By: Alex Pathak MD; Location: radial; Orientation: Left; Gauge: 20; Prep: Chlorhexidine ; Tolerance: Well 11/26/23746 by Christofer Fairchild DO Peripheral IV Date: 11/26/23; Time: 746; Orientation: Left; Location: Antecubital; Gauge: 16 G 11/26/23746 by Christofer Fairchild DO ETT Date: 11/26/23; Time: 747; Placed By: Aelx Pathak MD; Vent: easy mask; Induction: StandardIV; Blade Type: Shanell; Blade Size: 4; Laryngoscopy View: Grade 1 (full cords); Intubation Adjuncts: Stylet; Tube: Endotracheal Tube; Placement: Oral; Tube Type: Cuffed-inflated; Tube Size(mm): 8 MM; Depth of Insertion: 22 CM; Measured From: lips; Attempts: 1; Cuff Infated: Air; Verified By: Direct visualization, Bilateral breath sounds, Chest Auscultation, CO2 Monitor 11/26/23747 by Christofer Fairchild DO 11/26/23956 by Cheko Cuba MD Drain 11/26/23; 921; Herminia Howe MD; 1; Flat; Bulb; 10mm; BARD; [id number]; [id number]; Anterior,Left; Neck 11/26/23921 by Haley Pardo RN Intraprocedure I/O Totals Intake Isolyte-S infusion 1000.00 mL LR (Lactated ringers) 250.00 mL NS (0.9% NaCl) 250.00 mL Total Intake 1500 mL Patient Transfer Location: PACU Transport Airway: spontaneous respirations and supplemental O2 Transport Monitoring: continuous pulse oximetry and heart rate Complications: None Handoff Given? Yes Checklist or Protocol - The wallis handoff elements that must be included in the transfer of care checklist include: 1. Identification of patient. 2. Identification of responsible practitioner (PACU nurse or advanced practitioner). 3. Discussion of pertinent medical history. 4. Discussion of the surgical/procedure course (procedure, reason for surgery, procedure performed). 5. Intraoperative anesthetic management and issue/concerns. 6. Expectations/Plans for the early post-procedure period. 7. Opportunity for questions and acknowledgement of understanding of report from the receiving PACUteam. Cheko Cuba MD documented in this encounter Plan of Treatment Upcoming Encounters Date Type Department Care Team (Late st Contact Info) Description 07/23/2024 11:00 AM CDT Appointment [facility] [address] [place] [address] Herminia Howe MD [address] [facility] 2L [place] [phone] 07/23/2024 12:15 PM CDT Office Visit [facility] - [facility]ascular Surgery [address] [facility], [place] [phone] [place] [address] [place] [address] 2L [place] [phone] documented as of this encounter Goals Goal Patient Goal Type Associated Problems Recent Progress Patient-Stated? Author Patient will adhere to medication regimen General On track( 023 8:59 AM CDT) Dari Gardner RN documented as of this encounter Procedures Procedure Name Priority Date/Time Associated Diagnosis Comments ENDOTRACHEAL TUBE NOTE Routine 11/26/2023 7:48 AM CDT PERIPHERAL IV NOTE Routine 11/26/2023 7: 47 AM CDT ARTERIAL LINE NOTE Routine 11/26/2023 7: 47 AM CDT documented in this encounter Results * ETT LINE PERFORMABLE (11/26/2023 7:48 AM CDT) Narrative Christofer Fairchild, DO - 11/26/2023 7:48 AM CDT Christofer Fairchild DO ? 11/26/2023 ??7:48 AM Endotracheal Tube Placement: ? Patient Location: OR. Procedure: intubation ([id number]) Procedure Section: ?? Sedation: IV sedation. Indications [...] Peripheral IV Line Placement: Procedure: IV start ([id number]) Procedure Section: ?? Skin Prep: Betadine. Orientation: left Location: antecubital Catheter Gauge: 16 Number of Attempts: 1. Adjuncts: ultrasound Procedure Tolerance: tolerated well. Staff Section ? Anesthesia Provider: Christofer Fairchild DO Performed the procedure Alex Pathak MD GENERAL ANESTHESIA O RDERABLES * ARTERIAL LINE PERFORMABLE (11/26/2023 7:47 AM CDT) Narrative Christofer Fairchild DO - 11/26/2023 7:47 AM CDT Christofer Fairchild DO ? 11/26/2023 ??7:47 AM Arterial Line Placement Procedure Note Patient Location: [place]. Procedure: Arterial Line ([id number]) Procedure Section ?? Indications: continuous blood pressure [...] Alex Pathak MD GENERAL ANESTHESIA O RDERABLES documented in this encounter Visit Diagnoses Not on filedocumented in this encounter Administered Medications Inactive Administered Medications - up to 3 most recent administrations Medication Order MAR Action Action Date Dose Rate Site 0.9% NaCl infusion Intravenous, CONTINUOUS PRN, Starting on Sun11/26/23 at 0727, Until Sun11/26/23 at 1017, Anesthesia Intra-op $ New Bag/Syringe 11/26/2023 7:27 AM CDT calcium chloride 10 % injection Intravenous, PRN, Starting on Sun11/26/23 at 0847, Until Sun11/26/23 at 1017, Anesthesia Intra-op $ Given 11/26/2023 8:47 AM CDT 300 mg ceFAZolin (Ancef) 2,000 mg in 50 mL IVPB Intravenous, PRN, Starting on Sun11/26/23 at 0745, Until Sun11/26/23 at 1017, Anesthesia Intra-op $ Given 11/26/2023 7:45 AM CDT 2 g dexAMETHasone Sod Phosphate PF injection Intravenous, PRN, Starting on Sun11/26/23 at 0745, Until Sun11/26/23 at 1017, Anesthesia Intra-op $ Given 11/26/2023 7:45 AM CDT 4 mg fentaNYL (PF) (Sublimaze) injection Intravenous, PRN, Starting on Sun11/26/23 at 0734, Until Sun11/26/23 at 1017, Anesthesia Intra-op $ Given 11/26/2023 8:00 AM CDT 125 mcg $ Given 11/26/2023 7:34 AM CDT 75 mcg heparin injection Intravenous, PRN, Starting on Sun11/26/23 at 0818, Until Sun11/26/23 at 1017, Anesthesia Intra-op $ Given 11/26/2023 8:56 AM CDT 1,000 Units $ Given 11/26/2023 8:18 AM CDT 7,000 Units isolyte-S pH 7.4 infusion Intravenous, CONTINUOUS PRN, Starting on Sun11/26/23 at 0727, Until Sun11/26/23 at 1017, Anesthesia Intra-op $ New Bag/Syringe 11/26/2023 7:27 AM CDT lactated ringers infusion Intravenous, CONTINUOUS PRN, Starting on Sun11/26/23 at 0727, Until Sun11/26/23 at 1017, Anesthesia Intra-op $ New Bag/Syringe 11/26/2023 7:27 AM CDT lidocaine HCl (PF) (Xylocaine MPF) 2 % injection Intravenous, PRN, Starting on Sun11/26/23 at 0734, Until Sun11/26/23 at 1017, Anesthesia Intra-op $ Given 11/26/2023 7:34 AM CDT 100 mg norepinephrine (Levophed) 8 mg/250 ml D5 infusion premix Intravenous, PRN, Starting on Sun11/26/23 at 0735, Until Sun11/26/23 at 1017, Anesthesia Intra-op Rate Change 11/26/2023 9:16 AM CDT 0.08 mcg/kg/min 11.055 mL/hr Rate Change 11/26/2023 9:14 AM CDT 0.06 mcg/kg/min 8.291 m L/hr Rate Change 11/26/2023 8:55 AM CDT 0.08 mcg/kg/min 11.055 mL/hr ondansetron (Zofran) injection Intravenous, PRN, Starting on Sun11/26/23 at 0931, Until Sun11/26/23 at 1017, Anesthesia Intra-op $ Given 11/26/2023 9:31 AM CDT 4 mg phenylephrine 100 mcg/mL injection Intravenous, PRN, Starting on Sun11/26/23 at 0742, Until Sun11/26/23 at 1017, Anesthesia Intra-op $ Given 11/26/2023 7:42 AM CDT 100 mcg propofol (Diprivan) injection Intravenous, PRN, Starting on Sun11/26/23 at 0734, Until Sun11/26/23 at 1017, Anesthesia Intra-op $ Given 11/26/2023 7:34 AM CDT 200 mg protamine injection Intravenous, PRN, Starting on Sun11/26/23 at 0927, Until Sun11/26/23 at 1017, Anesthesia Intra-op $ Given 11/26/2023 9:27 AM CDT 20 mg rocuronium (Zemuron) injection Intravenous, PRN, Starting on Sun11/26/23 at 0735, Until Sun11/26/23 at 1017, Anesthesia Intra-op $ Given 11/26/2023 8:22 AM CDT 50 mg $ Given 11/26/2023 7:35 AM CDT 50 mg sugammadex (Bridion) injection Intravenous, PRN, Starting on Sun11/26/23 at 0952, Until Sun11/26/23 at 1017, Anesthesia Intra-op $ Given 11/26/2023 9:52 AM CDT 200 mg documented in this encounter Care Teams Flight Operations Coordinator Relationship Specialty Start Date End Date Fabiano Mosley MD PCP - General 12/06/18 documented as of this encounter
--- OUTSIDE RECORDS SUMMARY | 2024-04-12 09:02 | XMS_ITS | Encounter Summary ---
Author Organization [facility] Address [address] [place] [address] Care Team Providers Care Greenhouse Florist Name Role Phone Fabiano Mosley MD Primary Care Provider [phone] [phone] Encounter Details Date Type Department Care Team (Latest Contact Info) Description 11/23/2023 Travel Social History Tobacco Use Types Packs/Day [...] No 08/02/2022 documented as of this encounter Plan of Treatment Upcoming Encounters Date Type Department Care Team (Late Contact Info) Description 07/23/2024 11:00 AM CDT Appointment [facility] VASCULAR US [address] [place] [address] Herminia Howe MD [address] [facility] 2L [place] [address] 07/23/2024 12:15 PM CDT Office Visit [facility] - [facility] Surgery [address] [place], [place] [address] Herminia Howe MD [address] [facility] 2L [place] [address] documented as of this encounter Goals Goal Patient Goal Type Associated Problems Recent Progress Patient-Stated? Author Patient will adhere to medication regimen General On track( 023 8:59 AM CDT) Dari Gardner, AVI documented as of this encounter Visit Diagnoses Not on filedocumented in this encounter Care Teams Greenhouse Florist Relationship Specialty Start Date End Date Fabiano Mosley MD PCP - General 12/06/18 documented as of this encounter
--- OUTSIDE RECORDS SUMMARY | 2024-04-12 09:03 | XMS_ITS | Encounter Summary ---
Author Organization [facility] Address [address] [facility] [place] [address] Care Team Providers Care Obstetrical Nurse Name Role Phone Fabiano Mosley MD Primary Care Provider [phone] [phone] Reason for Visit * Reason Comments Refill Request Encounter Details Date Type Department Care Team (Late Contact Info) Description 10/25/2021 Refill [facility] [address] [place] [address] Ilda Yip, [address] [facility] 2L DIV [place] [phone] Refill Request Social History Tobacco Use Types Packs/Day Years Used Date Smoking Tobacco: Every Day Cigarettes 1 6 Smokeless Tobacco: Never Alcohol Use Standard Drinks/Week Comments Yes 0 (1 standard drink = 0.6 oz pur e alcohol) Sex and Gender Information Value Date Recorded Sex Assigned at Not on file Gender Identity Not on file Sexual Orientation Not on file documented as of this encounter Plan of Treatment Upcoming Encounters Date Type Department Care Team (Late Contact Info) Description 07/23/2024 11:00 AM CDT Appointment [facility]ASC[facility] US [address] [place] [phone] Herminia Howe MD [address] [facility] 2L DIV [place] [phone] 07/23/2024 12:15 PM CDT Office Visit [facility] - Vascular Surgery [address] [place] [address], [place] [address] Herminia Howe MD [address] [place] [address] 2L DIV [place] [address] documented as of this encounter Visit Diagnoses Not on filedocumented in this encounter Care Teams Obstetrical Nurse Relationship Specialty Start Date End Date Fabiano Mosley MD PCP - General 12/06/18 documented as of this encounter
--- OUTSIDE RECORDS SUMMARY | 2024-04-12 09:03 | XMS_ITS | Encounter Summary ---
Author Organization [facility] Address [address] [facility] [place] [address] Care Team Providers Care Bologna Lacer Name Role Phone Fabiano Mosley MD Primary Care Provider [phone] [phone] Reason for Visit * Reason Comments Refill Request Encounter Details Date Type Department Care Team (Late Contact Info) Description 02/23/2022 Refill [facility] [address] [place] [address] Ilda Yip, [address] [facility] 2L [place] [phone] Refill Request Social History Tobacco Use Types [...] 11:00 AM CDT Appointment [facility] VASCULAR US [address] [place] [phone] Herminia Howe MD [address] [facility] 2L [place] [phone] 07/23/2024 12:15 PM CDT Office Visit [facility] - Vascular Surgery [address] [place] [address], [place] [address] Herminia Howe MD [address] [address] 2L [place] [phone] documented as of this encounter Visit Diagnoses Not on filedocumented in this encounter Care Teams Bologna Lacer Relationship Specialty Start Date End Date Fabiano Mosley MD PCP - General 12/06/18 documented as of this encounter
--- OUTSIDE RECORDS SUMMARY | 2024-04-12 09:03 | XMS_ITS | Encounter Summary ---
Author Organization [facility] Address [address] [place] [address] Care Team Providers Care Research Administrator Name Role Phone Fabiano Mosley MD Primary Care Provider [phone] [phone] Reason for Visit * Reason Onset Date Comments Appointment 11/16/2023 Reminder Call 11/16/2023 Encounter Details Date Type Department Care Team (Late st Contact Info) Description 11/16/2023 Telephone [facility] - Vascular Surgery [address] [place] [address], [place] [address] Herminia Howe MD [address] [place] [address] [place] [address] Appointment; Reminder Call Social History Tobacco Use Types Packs/Day [...] encounter Miscellaneous Notes * Telephone Encounter - Echo Yan RN - 11/16/2023 12:54 PM CDT Call to Mr. Carreon to remind him of his testing appointment that is scheduled for 11/18 for a carotid duplex that is needed prior to surgery on 11/25. This is at [facility] 8 am. Ground floor. Dove family lounge to check-in. Left detailed message and office number if he would have any questions. documented in this encounter Plan of Treatment Upcoming Encounters Date Type Department Care Team (Late st Contact Info) Description 07/23/2024 11:00 AM CDT Appointment [facility] VASCULAR US [address] [place] [address] Herminia Howe MD [address] [place] [address] 2L [place] [address] 07/23/2024 12:15 PM CDT Office Visit [facility] - Vascular Surgery [facility] [facility], [place] [address] Herminia Howe MD [address] [place] [address] 2L [place] [address] documented as of this encounter Goals Goal Patient Goal Type Associated Problems Recent Progress Patient-Stated? Author Patient will adhere to medication regimen General On track( 023 8:59 AM CDT) No Dari Torres RN documented as of this encounter Visit Diagnoses Not on filedocumented in this encounter Care Teams Research Administrator Relationship Specialty Start Date End Date Fabiano Mosley MD PCP - General 12/06/18 documented as of this encounter
--- OUTSIDE RECORDS SUMMARY | 2024-04-12 09:03 | XMS_ITS | Encounter Summary ---
Author Organization [facility] Address [address] [facility] [place] [address] Care Team Providers Care Biosolids Management Technician Name Role Phone Fabiano Mosley MD Primary Care Provider [phone] [phone] Encounter Details Date Type Department Care Team (Latest Contact Info) Description 07/03/2022 Travel Social History Tobacco Use Types Packs/Day [...] on file Sexual Orientation Not on file COVID-19 Exposure Response Date Recorded In the last 10 days, have yo u been in contact with someone who was confirmed or suspected to have Coronavirus/COVID-19? No / Unsure 07/03/2022 8:55 AM CDT documented as of this encounter Plan of Treatment Upcoming Encounters Date Type Department Care Team (Late st Contact Info) Description 07/23/2024 11:00 AM CDT Appointment [facility] VASCULAR US [address] [place] [phone] Herminia Howe MD [address] [facility] 2L DIV [place] [phone] 07/23/2024 12:15 PM CDT Office Visit [facility] - Vascular Surgery [address] [facility], [place] [address] Herminia Howe MD [facility] [facility] 2L DIV [place] [phone] documented as of this encounter Goals Goal Patient Goal Type Associated Problems Recent Progress Patient-Stated? Author Patient will adhere to medication regimen General On track( 023 8:59 AM CDT) Dari Gardner RN documented as of this encounter Visit Diagnoses Not on filedocumented in this encounter Care Teams Biosolids Management Technician Relationship Specialty Start Date End Date Fabiano Mosley MD PCP - General 12/06/18 documented as of this encounter
--- OUTSIDE RECORDS SUMMARY | 2024-04-12 09:03 | XMS_ITS | Encounter Summary ---
Author Organization [facility] Address [address] [place] [address] Care Team Providers Care Legal Entity Controller Name Role Phone Fabiano Mosley MD Primary Care Provider [phone] [phone] Encounter Details Date Type Department Care Team (Latest Contact Info) Description 08/02/2022 Travel Social History Tobacco Use Types Packs/Day [...] suspected to have Coronavirus/COVID-19? No / Unsure 08/02/2022 11:27 AM CDT documented as of this encounter Functional Status [...] Info) Description 07/23/2024 11:00 AM CDT Appointment [facility]ULAR US [address] [place] [address] Herminia Howe MD [address] [facility] 2L [place] [address] 07/23/2024 12:15 PM CDT Office Visit [facility] - Vascular Surgery [address] [facility], [place] [address] Herminia Howe MD [address] [facility] 2L [place] [address] documented as of this encounter Goals Goal Patient Goal Type Associated Problems Recent Progress Patient-Stated? Author Patient will adhere to medication regimen General On track( 023 8:59 AM CDT) Dari Gardner, AVI documented as of this encounter Visit Diagnoses Not on filedocumented in this encounter Care Teams Legal Entity Controller Relationship Specialty Start Date End Date Fabiano Mosley MD PCP - General 12/06/18 documented as of this encounter
--- OUTSIDE RECORDS SUMMARY | 2024-04-12 09:03 | XMS_ITS | Encounter Summary ---
Author Organization [facility] Address [address] [place] [address] Care Team Providers Care Chest Painting Leader Name Role Phone Fabiano Mosley MD Primary Care Provider [phone] [phone] Reason for Visit * Reason Comments Establish Care Enlarged prostate Encounter Details Date Type Department Care Team (Late st Contact Info) Description 02/10/2022 11:00 AM CDT Office Visit [facility] [address] [place] [address] Arron Anne MD [address] [place] [address] Enlarged prostate (Primary Dx) Social History Tobacco Use Types Packs/Day Years Used Date Smoking Tobacco: Every Day Cigarettes 1 6 Smokeless Tobacco: Never Tobacco Cessation:Ready to Q uit: Not Asked; Counseling Given: Not Answered Alcohol Use Standard Drinks/Week Comments Yes 0 (1 standard drink = 0.6 oz pur e alcohol) Sex and Gender Information Value Date Recorded Sex Assigned at Not on file Gender Identity Not on file Sexual Orientation Not on file documented as of this encounter Last Filed Vital Signs Vital Sign Reading Time Taken Comments Blood Pressure 156/89 02/10/2022 11:15 AM CDT Pulse 73 02/10/2022 11:15 AM CDT Temperature - - Respiratory Rate - - Oxygen Saturation 98% 02/10/2022 11:15 AM CDT Inhaled Oxygen Concentration - - Weight 68 kg (150 lb) 02/10/2022 11:15 AM CDT Height 185.4 cm (6' 1 ) 02/10/2022 11:15 AM CDT Body Mass Index 19.79 02/10/2022 11:15 AM CDT documented in this encounter Progress Notes * Storm Urbano MD - 02/10/2022 11:[address] [facility] Division of Urologic Surgery Arron Anne MD Date of Visit: 02/10/2022 Patient Name: Cruz Carreon Medical Record: [id number] : 1950 Age: [age] year old Sex: male Chief Complaint: BPH with LUTS History of Present Illness: The patient is a 71 year old male being seen today for follow up of BPH with LUTS s/p Rezum on 01/2019. Initial AUA SS: 5, 5, 5, 5, 5, 4, 4=34 (QoL 6, terrible). Had failed tamsulosin and finasteride. 03/10/2019: Had catheter post-procedure, removed and voided well with hematuria and dysuria. 06/05/2019: AUASS: 3, 3, 1, 1, 2, 1, 3 = 14 with QOL5 unhappy (mainly due to burning when he voids). KAYLEE 05/28/20: AUA SS is 1, 1, 1, 1, 2, 0, 2= 8, QoL 3, mixed at that time and was doing well. Today,he presents to Dr. Anne's clinic to discuss other BPH treatment options due to worsening LUTS. AUASS, 4,4,2,1,4,1,3 = 19 QoL 6. He had episode of urinary retention in December 2021 requiring Campos catheter. He removed his own catheter at home after 10 days due to not being able to get follow up with a Urologist before then. Denies retention, hematuria, OLEGARIO, bladder stones, UTI since that time. Not on Flomax as this caused him to have orthostatic hypotension. Review of Systems Constitutional: Negative for fatigue, weight loss, fevers, chills, anorexia. Respiratory: Negative for shortness of breath, acute cough, asthma, wheezing Cardiovascular: Negative for chest pain, cyanosis Gastrointestinal: Negative for nausea, vomiting, hemetemesis, hematochezia, abdominal pain, constipation, diarrhea Genitourinary: Lower urinary tract symptoms Negative for dysuria, hematuria Skin: Negative for rash Hematologic/lymphatic: Negative for easy bruising Neurological: Negative for headaches, seizures Past Medical History: Past Medical History: Diagnosis Date ??? Arthritis Past Surgical History: No past surgical history on file. Family History: No family history on file. Social History: Social History Occupational History ??? Not on file Tobacco Use ??? Smoking status: Every Day Packs/day: 1.00 Years: 6.00 Pack years: 6.00 Types: Cigarettes ??? Smokeless tobacco: Never Vaping Use ??? Vaping Use: Never used Substance and Sexual Activity ??? Alcohol use: Yes ??? Drug use: Never ??? Sexual activity: Not on file Current medications: Current Outpatient Medications on File Prior to Visit Medication Sig Dispense Refill ??? Multiple Vitamins-Minerals (CENTRUM SILVER 50+MEN PO) Take 1 tablet by mouth once daily (Patient not taking: Reported on 02/10/2022) ??? Pyridoxine HCl (B-6) 50 MG Take 1 tablet by mouth once daily (Patient not taking: Reported on 02/10/2022) ??? tadalafil (Cialis) 5 MG tablet TAKE 1 TABLET BY MOUTH NEEDED 30 tablet 0 ??? zinc gluconate 50 MG tablet Take 50 mg by mouth once daily (Patient not taking: Reported on 02/10/2022) No current facility-administered medications on file prior to visit. Allergies: No Known Allergies Physical Examination: BP 156/89 Pulse 73 Ht 6' 1 (1.854 m) Wt 150 lb (68 kg) SpO2 98% BMI 19.79 kg/m?? Body mass index is 19.79 kg/m??. General: NAD, well appearing Eyes: conjunctiva clear ENT: MMM, oropharynx clear Lungs: No increased respiratory effort Heart: regular rate and rhythm Abdomen: soft, non-distended, non-tender Extremities: No edema, moves all four extremities Neuro: awake, alert Labs: MRI Pelvis 01/08/19 1. Prostatic hyperplasia (PI-RADS 2). No focal lesion concerning for prostate cancer is identified. TRUS 02/10/2019 Width: 55mm Height: 49mm Length: 61mm Volume: 85 grams Micro: No results found for this or any previous visit (from the past 72 hour(s)). Assessment Cruz Carreon is a 71 year old male with BPH and LUTS s/p Rezum in 01/2019 who has recurrence of obstructive symptoms with episode of urinary retention (not on any medication) Recommendations - Discussed treatment options including starting oral medication and performing another surgical options. These included r/b for Rezum, Urolift, Aquablation, GLL, TURP, PAE, HoLeP. He wants to preserve ejaculation as much as possible. Discussed that only Rezum and PAE will have lower chances of having this. - patient would like to avoid repeat surgery at this time - amenable to starting oral medication (Rapaflo 8mg qd) - RTC in 3-4 months to discuss symptoms. Will consider further options if still no improvement or if he develops red flag symptoms (retention, uti, olegario, bladder stones, hematuria) Storm Urbano MD PGY2 02/10/22 12:21 PM Attending Physician Supervisory Note I personally interviewed and examined the patient and agree with the doctor above. Discussed multiple options with the patient at this time regarding his recurrent urinary tract symptoms. He is not sure if he wants to lose ejaculatory function and so I advise against any permanent surgical procedure such as a laser or a TURP at this time. We did talk about the possibility of PAE or repeat resume therapy as well. At this time we will stick with medical management and start patient on Rapaflo and then follow-up after that. Arron Anne MD documented in this encounter Procedure Notes * Nancie Corcoran - 02/10/2022 11:42 AM CDTAssociated Order(s): PROC BLADDER SCAN Procedure(s): AK MSR PVR U&/BLADD CAPCTY US NON Pre-Procedure Diagnose(s): Enlarged prostate Bladder Scan results where 58mL. documented in this encounter Plan of Treatment Upcoming Encounters Date Type Department Care Team (Late st Contact Info) Description 07/23/2024 11:00 AM CDT Appointment [facility] VASCULAR US [address] [place] [address] Herminia Howe MD [address] [place] [address] 2L [place] [address] 07/23/2024 12:15 PM CDT Office Visit [facility] - Vascular Surgery [address] [facility], [place] [address] Herminia Howe MD [address] [facility] 2L [place] [address] documented as of this encounter Procedures Procedure Name Priority Date/Time Associated Diagnosis Comments AK MSR PVR U&/BLADD CAPCTY US NON Routine 02/10/2022 11:42 AM CDT Enlarged prostate URINALYSIS AUTO - POINT OF CARE (AMB) [facility] Routine 02/10/2022 Enlarged prostate documented in this encounter Results * AK MSR PVR U&/BLADD CAPCTY US NON (02/10/2022 11:42 AM CDT) Narrative Nancie Corcoran - 02/10/2022 11:42 AM CDT Nancie Corcoran ? 02/15/2022 10:32 AM Bladder Scan results where 58mL. Arron Anne MD PROCEDURE/MINOR SONDRA GICAL ORDERABLES * URINALYSIS AUTO - POINT OF CARE (AMB) [facility] (02/10/2022) Glucose UA neg Bilirubin UA POCT neg Ketones UA POCT neg Specific [place] UA 1.025 Blood Urine POCT neg pH UA 6.0 Protein UA 15mg/dL Urobilinogen UA 0.2mg/dL Nitrite UA neg WBC UA neg Urine URINE / Unknown 02/10/2022 Arron Anne MD LAB - POINT OF CARE ORDERABLES documented in this encounter Visit Diagnoses Diagnosis Enlarged prostate- Primary Hypertrophy of prostate without urinary obstruction and other lower urinary tract symptoms (LUTS) documented in this encounter Care Teams Chest Painting Leader Relationship Specialty Start Date End Date Fabiano Mosley MD PCP - General 12/06/18 documented as of this encounter
--- OUTSIDE RECORDS SUMMARY | 2024-04-12 09:03 | XMS_ITS | Encounter Summary ---
Author Organization [facility] Address [address] [facility] [place] [address] Care Team Providers Care Surgeon Assistant Name Role Phone Fabiano Mosley MD Primary Care Provider [phone] [phone] Encounter Details Date Type Department Care Team ([facility] Contact Info) Description 01/16/2019 Orders Only [facility] [address] [place] [address] Ilda Yip M, DO [address] [facility] 2L [place] [address] Pre-op testing Social History Tobacco Use Types Packs/Day Years [...] as of this encounter Progress Notes * Bella Florentino - 01/16/2019 4:08 PM CDT C&S needed one week prior to Rezum. documented in this encounter Plan of Treatment Upcoming Encounters Date Type Department Care Team ([facility] Contact Info) Description 07/23/2024 11:00 AM CDT Appointment [facility] VASCULAR US [address] [place] [phone] Herminia Howe MD [address] [place] [address] 2L [place] [address] 07/23/2024 12:15 PM CDT Office Visit [facility] - Vascular Surgery [address] [place] [address], [place] [address] Herminia Howe MD [address] [place] [address] 2L [place] [address] Scheduled Orders Name Type Priority Associated Diagnoses Orde r Schedule CULTURE URINE Microbiology Routine Pre-op testing Ordered: 01/16/2019 documented as of this encounter Visit Diagnoses Diagnosis Pre-op testing- Primary Preoperative examination, unspecified documented in this encounter Care Teams Surgeon Assistant Relationship Specialty Start Date End Date Fabiano Mosley MD PCP - General 12/06/18 documented as of this encounter
--- OUTSIDE RECORDS SUMMARY | 2024-04-12 09:03 | XMS_ITS | Encounter Summary ---
Author Organization [facility] Address [address] [facility] [place] [address] Care Team Providers Care Ob Tech Name Role Phone Fabiano Mosley MD Primary Care Provider [phone] [phone] Encounter Details Date Type Department Care Team (Latest Contact Info) Description 11/14/2023 Travel Social History Tobacco Use Types Packs/Day [...] Info) Description 07/23/2024 11:00 AM CDT Appointment [facility] VASCULAR US [address] [place] [address] Herminia Howe MD [address] [facility] 2L [place] [address] 07/23/2024 12:15 PM CDT Office Visit [facility] - Vascular Surgery [address] [facility], [place] [address] Herminia Howe MD [address] [facility] 2L [place] [address] documented as of this encounter Goals Goal Patient Goal Type Associated Problems Recent Progress Patient-Stated? Author Patient will adhere to medication regimen General On track( 023 8:59 AM CDT) Dari Gardner, AVI documented as of this encounter Visit Diagnoses Not on filedocumented in this encounter Care Teams Ob Tech Relationship Specialty Start Date End Date Fabiano Mosley MD PCP - General 12/06/18 documented as of this encounter
--- OUTSIDE RECORDS SUMMARY | 2024-04-12 09:03 | XMS_ITS | Encounter Summary ---
Author Organization [facility] Address [address] [place] [address] Care Team Providers Care Farmworker Grain Name Role Phone Fabiano Mosley MD Primary Care Provider [phone] [phone] Reason for Referral * Radiology Services (Routine) - Closed Specialty Diagnoses / Procedures Referred By Lissa t Referred To Contact CT Scan Diagnoses Benign prostatic hyperplasia with lower urinary tract symptoms, symptom details unspecified Procedures CT ANGIO PROSTATE Klarissa Garcia APRN-CNP [address] [facility] [place] [address] [facility] [address] [place] [address] Referral ID Status Reason Start Date Expiration Date Visits Re quested Visits Authorized [id number] Closed 06/29/2022 06/29/2023 1 1 Reason for Visit * Reason Comments Prostate Problem PAE Encounter Details Date Type Department Care Team (Late st Contact Info) Description 06/29/2022 9:00 AM CDT Office Visit [facility] RAD [facility] 3L [address] [place] [phone] Calvin Loving MD [address] [place] [address] Benign prostatic hyperplasia with urinary obstruction (Primary Dx); Benign prostatic hyperplasia with lower urinary tract symptoms, symptom details unspecified Social History Tobacco Use Types Packs/Day Years Used Date Smoking Tobacco: Every Day Cigarettes 1 18 Smokeless Tobacco: Never Tobacco Cessation:Ready to Q uit: No; Counseling Given: Yes Alcohol Use Standard Drinks/Week Comments Yes 14 [...] AM CDT documented as of this encounter Last Filed Vital Signs Vital Sign Reading Time Taken Comments Blood Pressure 160/102 06/29/2022 8:52 AM CDT Pulse 85 06/29/2022 8:52 AM CDT Temperature 37 ??C (98.6 ??F) 06/29/2022 8:52 AM CDT Respiratory Rate 18 06/29/2022 8:52 AM CDT Oxygen Saturation 100% 06/29/2022 8:52 AM CDT Inhaled Oxygen Concentration - - Weight 73.5 kg (162 lb) 06/29/2022 8:52 AM CDT Height 185.4 cm (6' 1 ) 06/29/2022 8:52 AM CDT Body Mass Index 21.37 06/29/2022 8:52 AM CDT documented in this encounter Patient Instructions * Patient Instructions* Klarissa Garcia APRN-CNP - 06/29/2022 10:11 AM CDT Next steps: CT angio prostate Prostate artery embolization ( will be scheduled after Dr. Loving reviews CTA) Important numbers: IR Nurse Coordinator [phone] Post Procedure Complaints Nurse Practitioner- Klarissa Garcia NP [phone] documented in this encounter Progress Notes * Klarissa Garcia APRN-CNP - 06/29/2022 9:27 AM CDT He reports most bothersome symptom is nocturia, other things that cause urgency include cold weather and water running. Rezum helped for about a year, then symptoms began returning. * Klarissa Garcia APRN-CNP - 06/29/2022 9:10 AM CDT Images from the original note were not included. Vascular & Interventional Radiology New Patient Consultation Patient: Cruz Carreon Date of : 1950 Urologist: Brenda Yip DO PCP: Fabiano Chen MD Reason For Consult: Prostate artery embolization HPI: Cruz Carreon is a 72 year old male referred for prostate artery embolization. He was seen by Dr. Yip initially 2018 for BPH with bothersome symptoms despite tamsulosin [...] prefers a minimally invasive approach that will preserve ejaculatory and sexual function. Per MRI 2018, prostate measures ~ 61 gm. Campos dependent in December for about 5 days. Duration of symptoms: Many yeaRs Urinary retention? Yes History of prostate cancer?no Previous rectal surgery or rectal disease? no Prior pelvic radiation or radical pelvic surgery? no Interested in future fertility? no Medications (alpha-1 blockers, 0-pckex-knnrubgrx inhibitors): Not currently, did not tolerate well Prior surgery (TURP, laser, etc): [employer] Prostate Symptom Score (IPSS): Over the past month, how often have you had a sensation of not emptying your bladder completely after you finished urinating? About half the time (3 points) Over the past month, how often have you had to urinate again less than 2 hours after you finished urinating? Less than half the time (2 points) Over the past month, how often have you found you stopped and started again several times when you urinated? About half the time (3 points) Over the past month, how often have you found it difficult to postpone urination? Less than 1 time in 5 (1 point) Over the past month, how often have you had a weak urinary stream? More than half the time (4 points) Over the past month, how often have you had to push or strain to begin urination? Less than 1 time in 5 (1 point) Over the past month, how many times did you most typically get up to urinate from the time you wentto bed at night until the time you got up in the morning? 4 times (4 points) Total IPSS Score: 18 0-7 Points: Mild Symptoms 8-19 Points: Moderate Symptoms 20-35 Points: Severe symptoms Quality of Life: If you were to spend the rest of your life with your urinary condition just the way it is now, how would you feel about that? Unhappy (5 points) Campos catheter dependent? no Past Medical History: Diagnosis Date ??? Arthritis Past Surgical History: Procedure Laterality Date ??? COLONOSCOPY WITH POLYPECTOMY ??? Fracture Repair Right right arm ORIF ??? PROSTATE BIOPSY, NEEDLE ??? Tonsillectomy Bilateral Family History Problem Relation Name Age of Onset ??? Diabetes; unknown type Mother ??? Other - Cardiac Father ??? Cancer - Lung Sister ??? Other - Cardiac Brother Social History Socioeconomic History ??? Marital status: Single Spouse name: Not on file ??? Number of children: Not on file ??? Years of education: Not on file ??? Highest education level: Not on file Occupational History ??? Not on file Tobacco Use ??? Smoking status: Every Day Packs/day: 1.00 Years: 18.00 Pack years: 18.00 Types: Cigarettes ??? Smokeless tobacco: Never Vaping Use ??? Vaping Use: Never used Substance and Sexual Activity ??? Alcohol use: Yes Alcohol/week: 14.0 standard drinks Types: 14 Glasses of wine per week Comment: couple glasses of wine a day ??? Drug use: Not Currently Types: Marijuana Comment: occasionally smokes pot ??? Sexual activity: Not on file Other Topics Concern ??? Not on file Social History Narrative ??? Not on file Social Determinants of Health Financial Resource Strain: Not on file Food Insecurity: Not on file Transportation Needs: Not on file Stress: Not on file Housing Stability: Not on file Current Outpatient Medications Medication Sig ??? amLODIPine (Norvasc) 5 MG tablet Take 1 (one) tablet by mouth once daily ??? atorvastatin (Lipitor) 20 MG tablet (Patient not taking: Reported on 06/29/2022) ??? Ibuprofen (MOTRIN PO) Take 1 tablet by mouth 3 times daily as needed (Patient not taking: Reported on 06/29/2022) ??? silodosin (Rapaflo) 8 MG capsule Take 1 (one) capsule by mouth daily with breakfast (Patient not taking: Reported on 06/09/2022) ??? tadalafil (Cialis) 10 MG tablet TAKE 1 TABLET BY MOUTH ONCE DAILY NEEDED FOR SEXUAL ACTIVITY. TAKE APPROXIMATELY 30 MINUTES BEFORE, DO NOT USE MORE THAN ONE DOSE IN 24 HOURS ??? tadalafil (Cialis) 20 MG tablet TAKE 1 TABLET BY MOUTH ONCE DAILY NEEDED FOR SEXUAL ACTIVITY, TAKE APPROXIMATELY 30 MINUTES BEFORE, DO NOT USE MORE THAN 1 DOSE PER 24 HOURS ??? traZODone (Desyrel) 100 MG tablet Take 1 (one) tablet by mouth as needed ??? zinc gluconate 50 MG tablet Take 50 mg by mouth once daily (Patient not taking: Reported on 02/10/2022) No current facility-administered medications for this visit. No Known Allergies Pertinent aspects of the patient's past medical, surgical, family, and social history are mentionedin the HPI above. Remaining PSFH was also reviewed and is not pertinent to the presenting problem. ROS: A comprehensive ROS was performed. Pertinent positives and negatives are listed below. All other systems reviewed were negative. Constitutional: negative for fevers, chills Respiratory: negative for cough, hemoptysis, wheezing, or shortness of breath Cardiovascular: negative for chest pain or arrhythmias Genitourinary: See HPI Musculoskeletal: negative for arthralgias or back pain Neurological: negative for headaches, head injury, seizures, numbness/tingling, or dizziness Psychiatric: negative for anxiety or depression PHYSICAL EXAM: BP (!) 160/102 (BP SITE: LEFT ARM, BP POSITION: SITTING, BP CUFF SIZE: 12) Pulse 85 Temp 98.6 ??F (37 ??C) Resp 18 Ht 1.854 m (6' 1 ) Wt 73.5 kg (162 lb) SpO2 100% General: well nourished, NAD Eyes: no scleral icterus, no lid lag ENT: atraumatic, MMM Neck: supple, trachea midline Lungs: normal respiratory effort, CTAB, no accessory muscle use Cardiovascular: RRR, no murmurs Abdomen: soft, nontender, nondistended Extremities: warm, no pitting edema Psychiatric: AOx3, appropriate mood and affect IMAGING: All relevant imaging studies were personally reviewed by myself and the IR attending, Dr. Ardon. In clinic ultrasound ~ 64 gm LAB RESULTS: No results for input(s): WBC, HGB, HCT, PLT, PLTCOUNT, PLATELET in the last 33772 hours. No results for input(s): INR in the last 53089 hours. No results for input(s): NA, K, GLUCOSE, CREATININE, EGFR in the last 37789 hours. ASSESSMENT: Cruz Carreon is a 72 year old male referred for prostate artery embolization. He was seen by Dr. Yip initially 2018 for BPH with bothersome symptoms despite tamsulosin [...] prefers a minimally invasive approach that will preserve ejaculatory and sexual function. In clinic ultrasound shows a ~ 64 gm prostate, IPSS 18, QOL 5. Risks, benefits, and alternatives were discussed with the patient in detail. Risks include, but arenot limited to, pain, non-target embolization, temporary burning urination, catheter associated urinary tract infection, hematuria, hematospermia, blood in stool, rectal injury, bladder injury, injury to skin of penis and buttocks, and access site hematoma. Ultimately, will review case with Dr. Loving for procedure candidacy in plan of care. PLAN: 1. CTA of the pelvis (prostate artery protocol-for mapping prostatic vascular anatomy for planning PAE) 2. Schedule prostate artery embolization. 3. Prescription for Ciprofloxacin 500 mg BID for 10 days (starting 3 days before the procedure). Ifallergic to Ciprofloxacin, prescribe Ampicillin 500 mg BID. Thank you for involving Interventional Radiology in this patient's care. Please do not hesitate to call with further questions or concerns. Klarissa Garcia, MSN GROUP BURNER MACHINE VALANCE CUTTER-C Vascular and Interventional Radiology Outpatient Nurse Practitioner [facility] [phone] documented in this encounter Plan of Treatment Upcoming Encounters Date Type Department Care Team (Late st Contact Info) Description 07/23/2024 11:00 AM CDT Appointment [facility] VASCULAR US [address] [place] [address] Herminia Howe MD [address] [place] [address] 2L [place] [address] 07/23/2024 12:15 PM CDT Office Visit [facility] - Vascular Surgery [address] [place] [address], [place] [address] Herminia Howe MD [address] [place] [address] 2L [place] [address] documented as of this encounter Goals Goal Patient Goal Type Associated Problems Recent Progress Patient-Stated? Author Patient will adhere to medication regimen General On track( 023 8:59 AM CDT) Dari Gardner RN documented as of this encounter Results * CT ANGIO PROSTATE (07/03/2022 11:19 AM [...] DATE/TIME OF EXAM: ??07/03/2022 11:20 AM, LOCATION ??[facility] INDICATION: N40.1: Benign prostatic hyperplasia with lower [...] DATE/TIME OF EXAM: 07/03/2022 11:20 AM, LOCATION [facility] INDICATION: N40.1: Benign prostatic hyperplasia with lower [...] area of stenosis (series 7 image 134, image 144, series 11 image 131). Visualized [...] Hay on 07/05/2022 10:19 PM Klarissa Garcia GROUP BURNER MACHINE-MECHANICAL OPERATOR CT ORDERABLES documented in this encounter Visit Diagnoses Diagnosis Benign prostatic hyperplasia with urinary obstruction- Primary Benign prostatic hyperplasia with lower urinary tract symptoms, symptom details unspecified Benign prostatic hyperplasia with urinary obstruction- Primary Lung nodule, solitary Elevated PSA Elevated prostate specific antigen (PSA) Chronic prostatitis Heart palpitations Palpitations Benign prostatic hyperplasia with lower urinary tract symptoms, symptom details unspecified documented in this encounter Care Teams Farmworker Grain Relationship Specialty Start Date End Date Fabiano Mosley MD PCP - General 12/06/18 documented as of this encounter
--- OUTSIDE RECORDS SUMMARY | 2024-04-12 09:03 | XMS_ITS | Encounter Summary ---
Author Organization [facility] Address [address] [facility] [place] [address] Care Team Providers Care Energy Crop Farmer Name Role Phone Fabiano Mosley MD Primary Care Provider [phone] [phone] Reason for Visit * Reason Onset Date Comments Pre Op Call 06/30/2022 Encounter Details Date Type Department Care Team (Late Contact Info) Description 06/30/2022 Telephone [facility] IVR [address] [place] [phone] Sagrario Hennessy RN Pre Op Call Social History Tobacco Use Types Packs/Day Years Used Date Smoking Tobacco: Every Day Cigarettes 1 18 Smokeless Tobacco: Never Alcohol Use Standard Drinks/Week Comments Yes 14 (1 standard drink = 0.6 oz pu re alcohol) couple glasses of wine a day Sex and Gender Information Value Date Recorded Sex Assigned at Not on file Gender Identity Not on file Sexual Orientation Not on file documented as of this encounter Plan of Treatment Upcoming Encounters Date Type Department Care Team ([facility] Contact Info) Description 07/23/2024 11:00 AM CDT Appointment [facility] VASCULAR US [address] [place] [phone] Herminia Howe MD [address] [place] [address] [place] [phone] 07/23/2024 12:15 PM CDT Office Visit [facility] - Vascular Surgery [address] [place] [address], [place] [address] Herminia Howe MD [address] [place] [address] documented as of this encounter Goals Goal Patient Goal Type Associated Problems Recent Progress Patient-Stated? Author Patient will adhere to medication regimen General On track( 023 8:59 AM CDT) Dari Gardner RN documented as of this encounter Visit Diagnoses Not on filedocumented in this encounter Care Teams Energy Crop Farmer Relationship Specialty Start Date End Date Fabiano Mosley MD PCP - General 12/06/18 documented as of this encounter
--- OUTSIDE RECORDS SUMMARY | 2024-04-12 09:03 | XMS_ITS | Encounter Summary ---
Author Organization [facility] Address [address] [place] [address] Care Team Providers Care Powderer Name Role Phone Fabiano Mosley MD Primary Care Provider [phone] [phone] Reason for Visit * Radiology Services (Urgent) - Closed Specialty Diagnoses / Procedures Referred By Contac t Referred To Contact Vascular Lab Diagnoses Bilateral carotid artery stenosis Procedures VAS Carotid Duplex Bilateral Herminia Howe MD [facility] 2L [place] [address] [facility] Vascular Us [facility]1 [place] [address] Referral ID Status Reason Start Date Expiration Date Visits Re quested Visits Authorized [id number] Closed 11/14/2023 11/13/2024 1 1 Encounter Details Date Type Department Care Team (Latest Contact Info) Description 11/19/2023 7:58 AM CDT - 11/19/2023 11:59 PM CDT Hospital Encounter [facility] VASCULAR US [address] [place] [address] Herminia Howe MD [facility] 2L [place] [address] Discharge Disposition: Home or Self Care Social [...] HOURS, MAX 4 TABLETS PER DAY 11/05/2023 atorvastatin (Lipitor) 20 MG tablet 06/07/2022 11/23/2023 documented as of this encounter Plan of Treatment Upcoming Encounters Date Type Department Care Team (Late st Contact Info) Description 07/23/2024 11:00 AM CDT Appointment [facility] VASCULAR US [address] [place] [phone] Herminia Howe MD [address] [place] [address] [place] [address] 07/23/2024 12:15 PM CDT Office Visit [facility] - Vascular Surgery [facility], [place] [phone] Herminia Howe MD [address] [place] [address] documented as of this encounter Goals Goal Patient Goal Type Associated Problems Recent Progress Patient-Stated? Author Patient will adhere to medication regimen General On track( 023 8:59 AM CDT) No Dari Torres RN documented as of this encounter Procedures Procedure Name Priority Date/Time Associated Diagnosis Comments VAS CAROTID DUPLEX BILATERAL HAI 11/19/2023 8:58 AM CDT Bilateral carotid artery stenosis documented in this encounter Results * VAS Carotid Duplex Bilateral (11/19/2023 8:58 AM CDT) Anatomical Region Laterality Modality Neck Intravascular Ul trasound 11/19/2023 8:05 AM CDT Narrative Procedure Note Derrick Gonzalez MD - 11/20/2023 Herminia Howe MD VASCULAR LAB ORDERA BLES documented in this encounter Visit Diagnoses Diagnosis Bilateral carotid artery stenosis Occlusion and stenosis of multiple and bilateral precerebral arteries without mention of cerebral infarction documented in this encounter Care Teams Powderer Relationship Specialty Start Date End Date Fabiano Mosley MD PCP - General 12/06/18 documented as of this encounter
--- OUTSIDE RECORDS SUMMARY | 2024-04-12 09:03 | XMS_ITS | Encounter Summary ---
Author Organization [facility] Address [address] [place] [address] Care Team Providers Care Industrial Laborer Name Role Phone Fabiano Mosley MD Primary Care Provider [phone] [phone] Reason for Visit * Reason Comments Procedure REZUM Encounter Details Date Type Department Care Team (Late st Contact Info) Description 02/10/2019 1:00 PM CDT Procedure visit [facility] [address] [place] [address] Ilda Yip M, DO [address] [place] [phone] Benign prostatic hyperplasia with lower urinary tract [...] Sign Reading Time Taken Comments Blood Pressure 139/96 02/10/2019 12:59 PM CDT Pulse 63 02/10/2019 12:59 PM CDT Temperature 36.8 ??C (98.3 ??F) 02/10/2019 12:59 PM C DT Respiratory Rate - - Oxygen Saturation 99% 02/10/2019 12:59 PM CDT Inhaled Oxygen Concentration - - Weight 70.3 kg (155 lb) 02/10/2019 12:59 PM CDT Height 185.4 cm (6' 1 ) 02/10/2019 12:59 PM CDT Body Mass Index 20.45 02/10/2019 12:59 PM CDT documented in this encounter Procedure Notes * Ilda Yip DO - 02/10/2019 1:43 PM CDTAssociated Order(s): PROC GENERIC PROCEDURE ORDER Procedure(s): UT TRURL DSTRJ PRST8 TISS RF WV; UT ECHO,TRANSRECTAL Pre-Procedure Diagnose(s): Benign prostatic hyperplasia with lower urinary tract symptoms, symptom details unspecified DATE OF SERVICE: 02/10/2019 PREOP DIAGNOSIS: Benign prostatic hyperplasia with lower urinary tract symptoms- N40.1 POSTOP DIAGNOSIS: Same PROCEDURE: 26290- transurethral destruction of prostate tissue with radiofrequency water vapor thermal therapy-code specific to rezum, Transrectal ultrasound of the prostate CPT 32284 ANESTHESIA: local lidocaine prostate block, transurethral lidocaine urojet SURGEON: Ilda Yip DO RESIDENT: MD Marco Antonio FINDINGS: trilobar enlargement and obstruction of the prostatic urethra. Friable prostate with bullous edema at the apex on the right. SHAWNEE >60g, no nodules, nontender. EBL:2cc SPECIMENS: None DRAINS: None COMPLICATIONS: None SPONGE AND INSTRUMENT COUNT: Counted and correct INDICATIONS FOR PROCEDURE: 68yo male have BPH with LUTS. AUASS:5, 5, 5, 5, 5, 4, 4 = 34 with QOL 6,terrible. The patient understands the material risks, possible benefits, and alternatives for symptomatic Benign Prostate Hypertrophy. The Patient understands that BLADDER FUNCTION is independent of this de-obstructing procedure. Improved voiding results may take 30-90 days before being noticed depending on prostate size and number of treatments. Bleeding, infection and irritative voiding are themost common side effects. Patients will continue to use their current BPH meds until advised to taper or stop. The patient was given the opportunity to have their questions answered in a previous face to face meeting and also today. Informed consent signed by patient. Patient medications and allergies have been reviewed prior to treatment. Patients on blood thinnersor aspirin (ASA) have been advised to check with the prescribing MD if it is ok to hold these priorto treatment. Risks of withholding blood thinners and [...] and a long 18-guage spinal needle. 10 cc???s of 1% lidocaine was injected bilaterally. Blood loss was less than 1cc. DESCRIPTION OF PROCEDURE: Transurethral destruction of prostate tissue; by radiofrequency thermotherapy. In the lithotomy position, under local anesthesia, the patient was prepped and draped in the usual manner. The anterior urethra, prostate, bladder neck, right and left orifices were visualized as the scope was passed. RFwas then used to create thermal energy to selectively ablate prostate tissue 1cm from the bladder neck to the proximal end of the veru spaced 1cm apart. Seven treatments were given. Treatments: RLL 3, LLL 3, ML 0, CZ 1. Blood loss was less than 5cc???s. The patient was monitored throughout the procedure. At the completion of the procedure the treatment device was removed. There was a careful check thatthere were no clots in the bladder or [...] concerns. Ilda Yip DO 02/10/2019 1:43 PM documented in this encounter Plan of Treatment Upcoming Encounters Date Type Department Care Team (Late st Contact Info) Description 07/23/2024 11:00 AM CDT Appointment [facility] VASCULAR [place] [phone] Herminia Howe MD [address] [place] [address] 2L [place] [address] 07/23/2024 12:15 PM CDT Office Visit [facility] - Vascular Surgery [address] [facility], [place] [address] Herminia Howe MD [facility] [facility] [place] 2L [place] [address] documented as of this encounter Procedures Procedure Name Priority Date/Time Associated Diagnosis Comments UT ECHO,TRANSRECTAL Routine 02/10/2019 1 :43 PM CDT Benign prostatic hyperplasia with lower urinary tract symptoms, symptom details unspecified UT TRURL DSTRJ PRST8 TISS RF WV Routine 02/10/2019 1:43 PM CDT Benign prostatic hyperplasia with lower urinary tract symptoms, symptom details unspecified URINALYSIS AUTO - POINT OF CARE (AMB) [facility] Routine 02/10/2019 1:11 PM CDT Benign prostatic hyperplasia with lower urinary tract symptoms, symptom details unspecified documented in this encounter Results * UT TRURL DSTRJ PRST8 TISS RF WV, UT ECHO,TRANSRECTAL (02/10/2019 1:43 PM CDT) Narrative Ilda Yip DO - 02/10/2019 1:43 PM CDT Ilda Yip DO ? 02/10/2019 ??2:13 PM DATE OF SERVICE: 02/10/2019 PREOP DIAGNOSIS: Benign prostatic hyperplasia with lower urinary tract symptoms- N40.1 POSTOP DIAGNOSIS: Same PROCEDURE: 15824- transurethral destruction of prostate tissue with radiofrequency water vapor thermal therapy-code specific to rezu, Transrectal ultrasound of the prostate CPT 59328 ANESTHESIA: local lidocaine prostate block, transurethral lidocaine [...] Yip DO PROCEDURE/MINOR RUGGIERO RGICAL ORDERABLES * URINALYSIS AUTO - POINT OF CARE (AMB) [facility] (02/10/2019 1:11 PM CDT) Glucose UA neg Bilirubin UA POCT neg Ketones UA POCT neg Specific [place] UA 1.010 Blood Urine POCT neg pH UA 7.0 Protein UA neg Urobilinogen UA neg Nitrite UA neg WBC UA neg Urine URINE / Unknown 02/10/2019 1 :11 PM CDT Ilda Yip DO LAB - POINT OF CAR E ORDERABLES documented in this encounter Visit Diagnoses Diagnosis Benign prostatic hyperplasia with lower urinary tract symptoms, symptom details unspecified- Primary documented in this encounter Care Teams Industrial Laborer Relationship Specialty Start Date End Date Fabiano Mosley MD PCP - General 12/06/18 documented as of this encounter
--- OUTSIDE RECORDS SUMMARY | 2024-04-12 09:03 | XMS_ITS | Encounter Summary ---
Author Organization [facility] Address [address] [place] [address] Care Team Providers Care Car Hopper Name Role Phone Fabiano Mosley MD Primary Care Provider [phone] [phone] Encounter Details Date Type Department Care Team (Late Contact Info) Description 02/05/2019 Orders Only [facility] [address] [place] [address] Ilda Yip DO [address] [place] [address] Social History Tobacco Use Types Packs/Day Years [...] as of this encounter Progress Notes * Ilda Yip DO - 02/05/2019 3:50 PM CDT Called and left message for patient to belt picker preop medications. Cipro, norco [facility] [place] Ilda Yip DO 02/05/2019 3:55 PM documented in this encounter Plan of Treatment Upcoming Encounters Date Type Department Care Team (Late Contact Info) Description 07/23/2024 11:00 AM CDT Appointment [facility]ULAR US [address] [place] [address] Herminia Howe MD [facility] 2L [place] [address] 07/23/2024 12:15 PM CDT Office Visit [facility] - Vascular Surgery [address] [place] [address], [place] [address] Herminia Howe MD [address] [facility] 2L [place] [phone] documented as of this encounter Visit Diagnoses Not on filedocumented in this encounter Care Teams Car Hopper Relationship Specialty Start Date End Date Fabiano Mosley MD PCP - General 12/06/18 documented as of this encounter
--- OUTSIDE RECORDS SUMMARY | 2024-04-12 09:03 | XMS_ITS | Encounter Summary ---
Author Organization [facility] Address [address] [facility] [place] [address] Care Team Providers Care Bleacher Operator Name Role Phone Fabiano Mosley MD Primary Care Provider [phone] [phone] Reason for Visit * Reason Comments Benign Prostatic Hyperplasia Encounter Details Date Type Department Care Team (Late st Contact Info) Description 06/05/2019 1:00 PM CLASSIFICATION AND TREATMENT DIRECTOR Office Visit [facility] [address] [place] [address] Ilda Yip DO [address] [place] [phone] Enlarged prostate with urinary retention (Primary Dx); BPH with obstruction/lower urinary tract symptoms Social History Tobacco Use Types Packs/Day Years [...] Progress Notes * Ilda Yip DO - 06/05/2019 2:56 PM CST [facility] Ilda Yip DO Date of Visit: 06/05/2019 Patient Name: Cruz Arceozola : 1950 Medical Record: [id number] Contact (home) [phone] (work) Age: [age] year old Sex: male Referring Physician: No referring provider defined for this encounter. Chief Complaint: BPH with LUTS irritative and obstructive History of Present Illness: The patient is a 69 year old male for follow up of BPH with LUTS. Previous AUASS:5, 5, 5, 5, 5, 4, 4 = 34 with QOL 6, terrible. He underwent Rezum on 02/10/2019, 7 treatments. 03/10/2019: Doing well since rezum other than dysuria. Reports burning in the urethra since the procedure. It harding when he urinates. He had hematuria for the first two weeks. No issues with retention since the catheter was removed. PVR: 57cc. Recommended Pumpkin seeds and checked culture. Here for follow up. Doing better. AUASS: 3, 3, 1, 1, 2, 1, 3 = 14 with QOL5 unhappy (mainly due to burning when he voids.) Reports good flow, emptying, not straining. Still with dysuria. Forgot to try the pumpkin seeds. Overall satisfied with the treatment with rezum. Definitely voids better and itmakes his life better. Past Medical History; Past Medical History: Diagnosis Date ??? Arthritis Past Surgical History: No past surgical history on file. Current Medications: Current Outpatient Medications Medication Sig Dispense Refill ??? alfuzosin CR 24hr (UROXATRAL) 10 MG tablet Take 1 tablet by mouth once daily 30 tablet 3 ??? ciprofloxacin (CIPRO) 500 MG tablet Take 1 tablet by mouth pre-OP multiple Take one 13 hours before procedure and the other 1 hour before 2 tablet 0 ??? escitalopram (LEXAPRO) 20 MG tablet ??? FINASTERIDE PO ??? tadalafil (CIALIS) 5 MG tablet CHEW AND SWALLOW ONE GUMMY ONCE DAILY. No current facility-administered medications for this visit. Allergies; Patient has no known allergies. Family History: No family history on file. Social History: Social History Socioeconomic History ??? Marital status: Single Spouse name: Not on file ??? Number of children: Not on file ??? Years of education: Not on file ??? Highest education level: Not on file Occupational History ??? Not on file Social Needs ??? Financial resource strain: Not on file ??? Food insecurity Worry: Not on file Inability: Not on file ??? Transportation needs Medical: Not on file Non-medical: Not on file Tobacco Use ??? Smoking status: Current Every Day Smoker Packs/day: 1.00 Years: 6.00 Pack years: 6.00 Types: Cigarettes ??? Smokeless tobacco: Never Used Substance and Sexual Activity ??? Alcohol use: Yes ??? Drug use: Never ??? Sexual activity: Not on file Lifestyle ??? Physical activity Days per week: Not on file Minutes per session: Not on file ??? Stress: Not on file Relationships ??? Social connections Talks on phone: Not on file Gets together: Not on file Attends buddhism service: Not on file Active member of club or organization: Not on file Attends meetings of clubs or organizations: Not on file Relationship status: Not on file ??? Intimate partner violence Fear of current or ex partner: Not on file Emotionally abused: Not on file Physically abused: Not on file Forced sexual activity: Not on file Other Topics Concern ??? Not on file Social History Narrative ??? Not on file Review of Systems: General: Negative Skin: Negative Eyes: Negative Ears/nose/mouth: Negative Lungs:Negative Heart:Negative Gastrointestinal: negative Genitourinary: dysuria Musculoskeletal: Negative Nervous system: Negative Reproductive system: Negative Hematologic: Negative Lymphatic: Negative Endocrine: Negative Physical Exam: Vital Signs: There were no vitals taken for this visit. Gen: Alert and oriented x3 Head: normocephalic Lungs: Non-labored respirations Heart: RRR Abd: soft, nontender, nondistended : no CVA tenderness, no suprapubic pain MSK: normal gait and strength Skin: No rashes PVR per bladder scanner: 0cc Imaging (images and reports reviewed): No new imaging Laboratory Studies: Glucose UA Date Value Ref Range Status 02/10/2019 neg Final Bilirubin UA POCT Date Value Ref Range Status 02/10/2019 neg Final Ketones UA POCT Date Value Ref Range Status 02/10/2019 neg Final Specific [place] UA Date Value Ref Range Status 02/10/2019 1.010 Final Blood Urine POCT Date Value Ref Range Status 02/10/2019 neg Final Protein UA Date Value Ref Range Status 02/10/2019 neg Final Urobilinogen UA Date Value Ref Range Status 02/10/2019 neg Final Nitrite UA Date Value Ref Range Status 02/10/2019 neg Final WBC UA Date Value Ref Range Status 02/10/2019 neg Final No results found for: PSA Microbiology: No new micro Pathology: No new path Diagnosis: 69yo male with BPH and mixed symptoms now s/p rezum on 02/10/2019 (7 treatments) Recommendations: Doing well. Continue to drink water. Try pumpkin seeds for dysuria. RTC in 4-6 months for recheck given persistent dysuria. IF still there, plan on cystoscopy. Patient's questions were answered and patient agrees with plan. Ilda Yip DO 06/05/2019 2:56 PM SIFICATION AND TREATMENT DIRECTOR documented in this encounter Procedure Notes * Bella Florentino - 06/05/2019 2:27 PM CSTAssociated Order(s): PROC BLADDER SCAN Procedure(s): FL MSR PVR U&/BLADD CAPCTY US NON Pre-Procedure Diagnose(s): Enlarged prostate with urinary retention 0ml SIFICATION AND TREATMENT DIRECTOR * Bella Florentino - 06/05/2019 1:52 PM CSTAssociated Order(s): PROC UROFLOWMETRY Procedure(s): FL URINE FLOW MEASUREMENT; FL ELECTRO-UROFLOWMETRY, FIRST Pre-Procedure Diagnose(s): Enlarged prostate with urinary retention Voiding Time: 18.5s Flow Time: 3.5s Time To Max Flow: 5.9s Max Flow Rate : 12.1ml Average Flow Rate: 15.5ml Voided: 91ml SIFICATION AND TREATMENT DIRECTOR documented in this encounter Plan of Treatment Upcoming Encounters Date Type Department Care Team (Late st Contact Info) Description 07/23/2024 11:00 AM CDT Appointment [facility] VASCULAR US [address] [place] [address] Herminia Howe MD [address] 2L [place] [address] 07/23/2024 12:15 PM CDT Office Visit [facility] - [facility] [address] [facility], [place] [address] Herminia Howe MD [address] [place] [address] 2L [place] [address] documented as of this encounter Procedures Procedure Name Priority Date/Time Associated Diagnosis Comments FL MSR PVR U&/BLADD CAPCTY US NON Routine 06/05/2019 2:27 PM CLASSIFICATION AND TREATMENT DIRECTOR Enlarged prostate with urinary retention FL URINE FLOW MEASUREMENT Routine 06/05/2019 1:52 PM CLASSIFICATION AND TREATMENT DIRECTOR Enlarged prostate with urinary retention FL ELECTRO-UROFLOWMETRY , FIRST Routine 06/05/2019 1:52 PM CLASSIFICATION AND TREATMENT DIRECTOR Enlarged prostate with urinary retention documented in this encounter Results * FL MSR PVR U&/BLADD CAPCTY US NON (06/05/2019 2:27 PM CLASSIFICATION AND TREATMENT DIRECTOR) Narrative Bella Florentino - 06/05/2019 2:27 PM CLASSIFICATION AND TREATMENT DIRECTOR Bella Florentino ? 06/05/2019 ??2:27 PM 0ml Ilda Yip DO PROCEDURE/MINOR RUGGIERO RGICAL ORDERABLES * FL ELECTRO-UROFLOWMETRY, FIRST, FL URINE FLOW MEASUREMENT (06/05/2019 1:52 PM CLASSIFICATION AND TREATMENT DIRECTOR) Narrative Bella Florentino - 06/05/2019 1:52 PM CLASSIFICATION AND TREATMENT DIRECTOR Bella Florentino ? 06/05/2019 ??1:54 PM Voiding Time: ?? 18.5s Flow Time: ?? 3.5s Time To Max Flow: ??5.9s Max Flow Rate : ??12.1ml Average Flow Rate: ??15.5ml Voided: ?? 91ml Ilda Yip DO PROCEDURE/MINOR RUGGIERO RGICAL ORDERABLES documented in this encounter Visit Diagnoses Diagnosis Enlarged prostate with urinary retention- Primary Hypertrophy of prostate with urinary obstruction and other lower urinary tract symptoms (LUTS) BPH with obstruction/lower urinary tract symptoms Hypertrophy of prostate with urinary obstruction and other lower urinary tract symptoms (LUTS) documented in this encounter Care Teams Bleacher Operator Relationship Specialty Start Date End Date Fabiano Mosley MD PCP - General 12/06/18 documented as of this encounter
--- OUTSIDE RECORDS SUMMARY | 2024-04-12 09:03 | XMS_ITS | Encounter Summary ---
Author Organization [facility] Address [address] [place] [address] Care Team Providers Care Pattern Finisher Name Role Phone Fabiano Mosley MD Primary Care Provider [phone] [phone] Encounter Details Date Type Department Care Team (Latest Contact Info) Description 12/10/2018 1:18 PM CDT - 12/10/2018 11:59 PM CDT Hospital Encounter [facility] DRAW STATION [address] [place] [phone] Ilda Yip M, DO [address] [facility] 2L [facility] [place] [phone] Discharge Disposition: Home or Self Care Social [...] Sig Dispensed Refills Start Date End Date alfuzosin CR 24hr (UROXATRAL) 10 MG tablet Take 1 tablet by mouth once daily 30 tablet 3 12/11/2018 2020 escitalopram (LEXAPRO) 20 MG tablet 10/14/2018 2020 FINASTERIDE PO 2020 tadalafil (CIALIS) 5 MG tablet CHEW AND SWALLOW ONE GUMMY ONCE DAILY. 02/22/2018 2020 tamsulosin (FLOMAX) 0.4 MG capsule Take 0.4 mg by mouth 11/26/2018 019 documented as of this encounter Plan of Treatment Upcoming Encounters Date Type Department Care Team (Late st Contact Info) Description 07/23/2024 11:00 AM CDT Appointment [facility] VASCULAR US [address] [place] [address] Herminia Howe MD [address] [place] [address] 2L [place] [phone] 07/23/2024 12:15 PM CDT Office Visit [facility] - Vascular Surgery [address] [place] [address], [place] [phone] Herminia Howe MD [address] [place] [address] 2L [place] [address] documented as of this encounter Procedures Procedure Name Priority Date/Time Associated Diagnosis Comments CULTURE URINE Routine 12/10/2018 10:47 AM CDT Lower urinary tract symptoms (LUTS) documented in this encounter Results * CULTURE URINE (12/10/2018 10:47 AM CDT) Culture Urine No growth (<100 CFU/mL) DM 12/12/2018 10:[address] [facility] MICROBIOLOGY Urine MID-STREAM URINE SPECIMEN / Unknown Collection / Unknown 12/10/2018 10:47 AM CDT 12/10/2018 3:00 PM CDT Ilda Yip DO LAB - MICROBIOLOGY ORDERABLES [facility] MICROBIOLOGY [address] [place] [address], [facility] [phone] documented in this encounter Visit Diagnoses Diagnosis Lower urinary tract symptoms (LUTS) Other symptoms involving urinary system documented in this encounter Care Teams Pattern Finisher Relationship Specialty Start Date End Date Fabiano Mosley MD PCP - General 12/06/18 documented as of this encounter
--- OUTSIDE RECORDS SUMMARY | 2024-04-12 09:03 | XMS_ITS | Encounter Summary ---
Author Organization [facility] Address [address] [place] [address] Care Team Providers Care Certified Surgical Tech/First Assistant Name Role Phone Fabiano Molsey MD Primary Care Provider [phone] Encounter Details Date Type Department Care Team (Late Contact Info) Description 07/12/2020 Orders Only [facility] Medical Group - COVID Vax [address] [place] [address] Anmol Meza MD [address] [place] [address] [place] [address] Need for vaccination Social History Tobacco Use Types Packs/Day Years [...] [facility] US [address] [place] [phone] Herminia Howe MD [facility] [place] [address] 07/23/2024 12:15 PM CDT Office Visit [facility] - Vascular Surgery [address] [place] [address], [place] [address] Herminia Howe MD [address] [place] [address] [place] [phone] documented as of this encounter Visit Diagnoses Diagnosis Need for vaccination Need for prophylactic vaccination and inoculation against unspecified single disease documented in this encounter Care Teams Certified Surgical Tech/First Assistant Relationship Specialty Start Date End Date Fabiano Mosley MD PCP - General 12/06/18 documented as of this encounter
--- OUTSIDE RECORDS SUMMARY | 2024-04-12 09:03 | XMS_ITS | Encounter Summary ---
Author Organization [facility] Address [address] [place] [address] Care Team Providers Care E Business Consultant Name Role Phone Fabiano Mosley MD Primary Care Provider [phone] [phone] Reason for Visit * Reason Comments Follow-up BPH possible Cysto Encounter Details Date Type Department Care Team (Late st Contact Info) Description 2020 2:00 PM CHECKER AND PACKER Office Visit [facility] Urology [address] [place] [address] Ilda Yip M, DO [address] OF [place]OLOGIC [place] [address] Benign prostatic hyperplasia with lower urinary tract symptoms, symptom details unspecified (Primary Dx) Social History Tobacco Use Types [...] Sign Reading Time Taken Comments Blood Pressure 162/108 2020 2:31 PM CHECKER AND PACKER Pulse 85 2020 2:31 PM CHECKER AND PACKER Temperature 36 ??C (96.8 ??F) 2020 2:31 PM CHECKER AND PACKER Respiratory Rate - - Oxygen Saturation 99% 2020 2:31 PM CHECKER AND PACKER Inhaled Oxygen Concentration - - Weight - - Height - - Body Mass Index - - documented in this encounter Progress Notes * Theodora Ilda Juaquin - 2020 3:22 PM CST [facility] Division of Urologic Surgery Ilda M DO Theodora Date of Visit: 2020 Patient Name: Cruz Carreon Medical Record: [id number] : 1950 Age: [age] year old Sex: male Chief Complaint: BPH with LUTS History of Present Illness: The patient is a 70 year old male being seen today for [...] (mainly due to burning when he voids). Today AUA SS is 1, 1, 1, 1, 2, 0, 2= 8, QoL 3, mixed. Reports he is doing well. Would like to be better but realizes that he is significantly improved from the past. Is off medications and would liketo keep it this way. Denies hematuria, UTI or urinary retention. Voids twice during work day. Has nocturia x2. Most bothersome symptom is urinary urgency, denies florid incontinence but reports he has had dribbling on his way to the bathroom. Drinks 2 cups of tea/coffee a day. Has never tried an elimination diet Review of Systems Constitutional: Negative for fatigue, [...] Take 1 tablet by mouth once daily ??? Pyridoxine HCl (B-6) 50 MG Take 1 tablet by mouth once daily ??? zinc gluconate 50 MG tablet Take 50 mg by mouth once daily No current facility-administered medications on file prior to visit. Allergies: No Known Allergies Physical Examination: BP (!) 162/108 Pulse 85 Temp 96.8 ??F (36 ??C) (Temporal) SpO2 99% There is no height or weight on file to calculate BMI. General: NAD, well appearing Eyes: conjunctiva clear ENT: MMM, oropharynx clear Lungs: No increased respiratory effort Heart: regular rate and rhythm Abdomen: soft, non-distended, non-tender Extremities: No edema, moves all four extremities Neuro: awake, alert Labs: No results for input(s): PSA in the last 96227 hours. Micro: No results found for this or any previous visit (from the past 72 hour(s)). Assessment Cruz Carreon is a 70 year old male with BPH and LUTS s/p Rezum in 01/2019 who is recovering well with residual urgency episodes Recommendations - Discussed possible etiologies of urgency including dietary and fluid consumption. Discussed caffeine cessation for 1 week and an elimination diet overall to evaluate for sources of urgency. Educated patient on medication options (anti-cholinergics, b3-agonists) but he would like to avoid these atthis time. Offered repeat cystoscopy for evaluation given this was a plan discussed in the past buthe would like to avoid this as well. - Will trial behavorial modifications - RTC in 6 months to 1 year for assessment and to readdress other options if he is interested Medardo Bernard MD 2020 3:23 PM Patient seen and examined with resident. Please see note for further details. I confirm history, exam, assessment and plan. No changes. Ilda Yip DO KER AND PACKER documented in this encounter Plan of Treatment Upcoming Encounters Date Type Department Care Team (Late st Contact Info) Description 07/23/2024 11:00 AM CDT Appointment [facility] [address] [place] [address] Herminia Howe MD [address] [place] [address] 2L DIV [place] [phone] 07/23/2024 12:15 PM CDT Office Visit [facility] - Vascular Surgery [address] [place] [address], [place] [address] Herminia Howe MD [address] [place] [address] 2[address] DIV OF [place]ASCULAR [place] [address] documented as of this encounter Procedures Procedure Name Priority Date/Time Associated Diagnosis Comments URINALYSIS AUTO - POINT OF CARE (AMB) [facility] Routine 2020 3:08 PM CHECKER AND PACKER Benign prostatic hyperplasia with lower urinary tract symptoms, symptom details unspecified documented in this encounter Results * URINALYSIS AUTO - POINT OF CARE (AMB) [facility] (2020 3:08 PM CHECKER AND PACKER) Glucose UA neg Bilirubin UA POCT neg Ketones UA POCT neg Specific [place] UA 1.015 Blood Urine POCT neg pH UA 8.0 Protein UA 0.3 g/L Urobilinogen UA 3.5 umol/L Nitrite UA neg WBC UA neg Urine URINE / Unknown 2020 3 :08 PM CHECKER AND PACKER Ilda Yip DO LAB - POINT OF CAR E ORDERABLES documented in this encounter Visit Diagnoses Diagnosis Benign prostatic hyperplasia with lower urinary tract symptoms, symptom details unspecified- Primary documented in this encounter Care Teams E Business Consultant Relationship Specialty Start Date End Date Fabiano Mosley MD PCP - General 12/06/18 documented as of this encounter
--- OUTSIDE RECORDS SUMMARY | 2024-04-12 09:03 | XMS_ITS | Encounter Summary ---
Author Organization [facility] Address [address] [place] [address] Care Team Providers Care Vessel Liner Name Role Phone Fabiano Mosley MD Primary Care Provider [phone] Reason for Visit * Reason Comments Post-Op post rezume Encounter Details Date Type Department Care Team (Late st Contact Info) Description 03/10/2019 1:00 PM STOPPERER ASSEMBLER Office Visit [facility] [address] [place] [address] Ilda Yip M, DO [address] [place] [phone] BPH with obstruction/lower urinary tract symptoms (Primary Dx); Benign prostatic hyperplasia with lower urinary tract symptoms, symptom details unspecified; Benign localized prostatic hyperplasia with lower urinary tract symptoms (LUTS); Lower urinary tract symptoms (LUTS) Social History Tobacco Use Types Packs/Day Years [...] Sign Reading Time Taken Comments Blood Pressure 128/90 03/10/2019 1:19 PM STOPPERER ASSEMBLER Pulse 77 03/10/2019 1:19 PM STOPPERER ASSEMBLER Temperature 36.7 ??C (98 ??F) 03/10/2019 1:19 PM STOPPERER ASSEMBLER Respiratory Rate - - Oxygen Saturation 98% 03/10/2019 1:19 PM STOPPERER ASSEMBLER Inhaled Oxygen Concentration - - Weight 68 kg (150 lb) 03/10/2019 1:19 PM STOPPERER ASSEMBLER Height 185.4 cm (6' 1 ) 03/10/2019 1:19 PM STOPPERER ASSEMBLER Body Mass Index 19.79 03/10/2019 1:19 PM STOPPERER ASSEMBLER documented in this encounter Progress Notes * Ilda Yip DO - 03/10/2019 1:29 PM CST [facility] Division of Urologic Surgery Ilda Yip DO Date of Visit: 03/10/2019 Patient Name: Cruz Carreon : 1950 Medical Record: [id number] Contact (home) [phone] (work) Age: [age] year old Sex: male Referring Physician: No referring provider defined for this encounter. Chief Complaint: BPH with LUTS irritative and obstructive History of Present Illness: The patient is a 68 year old male for follow up of BPH with LUTS. Previous AUASS:5, 5, 5, 5, 5, 4, 4 = 34 with QOL 6, terrible. He underwent Rezum on 02/10/2019. Here for follow up. Doing well since rezum other than dysuria. Reports burning in the urethra sincethe procedure. It harding when he urinates. He had hematuria for the first two weeks. No issues with retention since the catheter was removed. Past Medical History; Past Medical History: Diagnosis [...] activity: Not on file Lifestyle ??? Physical activity: Days per week: Not on file Minutes per session: Not on file ??? Stress: Not on file Relationships ??? Social connections: Talks on phone: Not on file Gets together: Not on file Attends hoahaoism service: Not on file Active member of [...] Ears/nose/mouth: Negative Lungs:Negative Heart:Negative Gastrointestinal: negative Genitourinary: LUTS s/p rezum Musculoskeletal: Negative Nervous system: Negative Reproductive system: Negative Hematologic: Negative Lymphatic: Negative Endocrine: Negative Physical Exam: Vital Signs: BP 128/90 Pulse 77 Temp 98 ??F (36.7 ??C) (Oral) Ht 6' 1 (1.854 m) Wt 150 lb (68 kg) SpO2 98% BMI 19.79 kg/m2 Gen: Alert and oriented x3 Head: normocephalic Lungs: Non-labored respirations Heart: RRR Abd: soft, nontender, nondistended : no CVA tenderness, no suprapubic pain MSK: normal gait and strength Skin: No rashes PVR per bladder scanner: 57cc Imaging (images and reports reviewed): No new imaging Laboratory Studies: Glucose UA Date Value Ref Range Status 02/10/2019 neg Final Bilirubin UA POCT Date Value Ref Range Status 02/10/2019 neg Final Ketones UA POCT Date Value Ref Range Status 02/10/2019 neg Final Specific [place] UA Date Value Ref Range Status 02/10/2019 [...] new micro Pathology: No new path Diagnosis: 68yo male with BPH and mixed symptoms now s/p rezum on 02/10/2019 (7 treatments) Recommendations: Doing well. Drink water Will check urine culture for dysuria. Can try pumpkin seeds. RTC at 90 day postop Patient's questions were answered and patient agrees with plan. Ilda Yip DO 03/10/2019 1:30 PM PERER ASSEMBLER documented in this encounter Procedure Notes * Ilda Yip DO - 03/10/2019 3:25 PM CSTAssociated Order(s): PROC BLADDER SCAN Procedure(s): VT MSR PVR U&/BLADD CAPCTY US NON Pre-Procedure Diagnose(s): BPH with obstruction/lower urinary tract symptoms 57cc PERER ASSEMBLER documented in this encounter Plan of Treatment Upcoming Encounters Date Type Department Care Team (Late st Contact Info) Description 07/23/2024 11:00 AM CDT Appointment [facility] [address] [place] [phone] Herminia Howe MD [address] [facility] 2L [place] [address] 07/23/2024 12:15 PM CDT Office Visit [facility] - Vascular Surgery [address] [facility], [place] [address] Herminia Howe MD [address] [facility] 2L [place] [address] documented as of this encounter Procedures Procedure Name Priority Date/Time Associated Diagnosis Comments VT MSR PVR U&/BLADD CAPCTY US NON Routine 03/10/2019 3:25 PM STOPPERER ASSEMBLER BPH with obstruction/lower urinary tract symptoms documented in this encounter Results * VT MSR PVR U&/BLADD CAPCTY US NON (03/10/2019 3:25 PM STOPPERER ASSEMBLER) Narrative Ilda Yip, DO - 03/10/2019 3:25 PM STOPPERER ASSEMBLER Ilda Yip, DO ? 03/10/2019 ??3:28 PM 57cc Ilda Yip DO PROCEDURE/MINOR RUGGIERO RGICAL ORDERABLES documented in this encounter Visit Diagnoses Diagnosis BPH with obstruction/lower urinary tract symptoms- Primary Hypertrophy of prostate with urinary obstruction and other lower urinary tract symptoms (LUTS) Benign prostatic hyperplasia with lower urinary tract symptoms, symptom details unspecified Benign localized prostatic hyperplasia with lower urinary tract symptoms (LUTS) Benign localized hyperplasia of prostate with urinary obstruction and other lower urinary tract symptoms (LUTS) Lower urinary tract symptoms (LUTS) Other symptoms involving urinary system documented in this encounter Care Teams Vessel Liner Relationship Specialty Start Date End Date Fabiano Mosley MD PCP - General 12/06/18 documented as of this encounter
--- OUTSIDE RECORDS SUMMARY | 2024-04-12 09:03 | XMS_ITS | Encounter Summary ---
Author Organization [facility] Address [address] [place] [address] Care Team Providers Care Roll Forger Name Role Phone Fabiano Mosley MD Primary Care Provider [phone] Reason for Visit * Reason Onset Date Comments Post Op Call 08/03/2022 S/p PAE Encounter Details Date Type Department Care Team (Late st Contact Info) Description 08/03/2022 Telephone [facility] IVR [address] [place] [address] Roselyn Casanova S, MACHINE FANCY STITCHER-CRITICAL CARE SPECIALIST [address] [facility] [place] [address] Post Op Call (S/p PAE) Social History Tobacco Use Types Packs/Day Years [...] encounter Miscellaneous Notes * Telephone Encounter - Roselyn Casanova APRN-CNP - 08/03/2022 9:33 AM CDT Patient is post op day #1 from prostate artery embolization. He states that he is having burning and small amount of dribbling with urination. He is taking his medications as prescribed. If symptoms worsen rather than starting to subside, he should call out office. He states he has a small amount of swelling at groin access site; no drainage. Advised that patientshould avoid heavy lifting and take it easy today. He travels to [facility] next week. He states he will call before leaving if he needs more medication for symptoms. He was satisfied with his care. All question and concerns addressed. FREDDY Quinones Interventional Radiology [facility] [phone] documented in this encounter Plan of Treatment Upcoming Encounters Date Type Department Care Team (Late st Contact Info) Description 07/23/2024 11:00 AM CDT Appointment [facility]ASCULAR US [address] [place] [phone] Herminia oHwe MD [facility] [address] [address] 07/23/2024 12:15 PM CDT Office Visit [facility] - Vascular Surgery [address] [place] [address], [place] [address] Herminia Howe MD [address] [facility] 2L [place] [address] documented as of this encounter Goals Goal Patient Goal Type Associated Problems Recent Progress Patient-Stated? Author Patient will adhere to medication regimen General On track( 023 8:59 AM CDT) Dari Gardner RN documented as of this encounter Visit Diagnoses Not on filedocumented in this encounter Care Teams Roll Forger Relationship Specialty Start Date End Date Fabiano Mosley MD PCP - General 12/06/18 documented as of this encounter
--- OUTSIDE RECORDS SUMMARY | 2024-04-12 09:03 | XMS_ITS | Encounter Summary ---
Author Organization [facility] Address [address] [place] [address] Care Team Providers Care Split And Drum Room Supervisor Name Role Phone Fabiano Mosley MD Primary Care Provider [phone] [phone] Reason for Visit * Radiology Services (Routine) - Closed Specialty Diagnoses / Procedures Referred By Lissa t Referred To Contact CT Scan Diagnoses Benign prostatic hyperplasia with lower urinary tract symptoms, symptom details unspecified Procedures CT ANGIO PROSTATE Klarissa Garcia APRN-CNP [address] [facility] FIRST [place] [address] [facility] [address] [place] [address] Referral ID Status Reason Start Date Expiration Date Visits Re quested Visits Authorized [id number] Closed 06/29/2022 06/29/2023 1 1 Encounter Details Date Type Department Care Team (Latest Contact Info) Description 07/03/2022 8:55 AM CDT - 07/03/2022 11:37 AM CDT Hospital Encounter [facility] IVR [address] [place] [address] Klarisas Garcia APRN-CNP [address] [facility] FIRST [place] [address] Virgilio Hightower MD [address] [facility] 2L [place] [address] [facility] Discharge Disposition: Home or Self Care Social [...] Sign Reading Time Taken Comments Blood Pressure 129/95 07/03/2022 11:30 AM CDT Pulse 70 07/03/2022 11:30 AM CDT Temperature 36.7 ??C (98 ??F) 07/03/2022 10: 09 AM CDT Respiratory Rate - - Oxygen Saturation 96% 07/03/2022 10: 45 AM CDT Inhaled Oxygen Concentration - - Weight 73.3 kg (161 lb 11.2 oz) 023 10:01 AM CDT Height 185.4 cm (6' 1 ) 07/03/2022 10:0 1 AM CDT Body Mass Index 21.33 07/03/2022 10:01 AM CDT documented in this encounter Medications at Time of Discharge Medication Sig Dispensed Refills Start Date End Date amLODIPine (Norvasc) 5 MG tablet Take 1 (one) tablet by mouth once daily 02/09/2022 11/14/2023 aspirin buffered (Bufferin Low Dose) 81 MG tablet Take 1 (one) tablet by mouth once daily 11/14/2023 atorvastatin (Lipitor) 20 MG tablet 06/07/2022 11/23/2023 Ibuprofen (MOTRIN PO) Take 1 tablet by mouth 3 times daily as needed 11/14/2023 silodosin (Rapaflo) 8 MG capsule Take 1 (one) capsule by mouth daily with breakfast 30 capsule 3 02/10/2022 11/14/2023 tadalafil (Cialis) 10 MG tablet TAKE 1 TABLET BY MOUTH ONCE DAILY NEEDED FOR SEXUAL ACTIVITY. TAKE APPROXIMATELY 30 MINUTES BEFORE, DO NOT USE MORE THAN ONE DOSE IN 24 HOURS 05/16/2022 11/14/2023 tadalafil (Cialis) 20 MG tablet TAKE 1 TABLET BY MOUTH ONCE DAILY NEEDED FOR SEXUAL ACTIVITY, TAKE APPROXIMATELY 30 MINUTES BEFORE, DO NOT USE MORE THAN 1 DOSE PER 24 HOURS 05/16/2022 11/14/2023 traZODone (Desyrel) 100 MG tablet Take 1 (one) tablet by mouth as needed 05/16/2022 11/14/2023 zinc gluconate 50 MG tablet Take 50 mg by mouth once daily 11/14/2023 documented as of this encounter Progress Notes * Herminia Randall RN - 07/03/2022 11:18 AM CDT Pt back to phase 3 recovery * Herminia Randall RN - 07/03/2022 11:08 AM CDT Scan started. Will rescan in 5 minutes. * Herminia Randall RN - 07/03/2022 11:05 AM CDT Nitro given .4 PO POC 58 GFR First BP = 150/96 MAP 118 @1054 Second NB=042/83 MAP 99 Second Nitro@1111 documented in this encounter Plan of Treatment Upcoming Encounters Date Type Department Care Team (Late st Contact Info) Description 07/23/2024 11:00 AM CDT Appointment [facility] US [address] [place] [address] Herminia Howe MD [address] [place] [address] 2L [place] [phone] 07/23/2024 12:15 PM CDT Office Visit [facility] - Vascular Surgery [address] [place] [address], [place] [address] Herminia Howe MD [address] [place] [address] [address] [place] [address] documented as of this encounter Goals Goal Patient Goal Type Associated Problems Recent Progress Patient-Stated? Author Patient will adhere to medication regimen General On track( 023 8:59 AM CDT) Dari Gardner RN documented as of this encounter Procedures Procedure Name Priority Date/Time Associated Diagnosis Comments CT ANGIO PROSTATE Routine 07/03/2022 11: 19 AM CDT Benign prostatic hyperplasia with lower urinary tract symptoms, symptom details unspecified CREATININE - POCT INTERFACED Routine 07/03/2022 11:04 AM CDT documented in this encounter Results * CT ANGIO PROSTATE [...] DATE/TIME OF EXAM: ??07/03/2022 11:20 AM, LOCATION ??[facility] INDICATION: N40.1: Benign prostatic hyperplasia with lower [...] DATE/TIME OF EXAM: 07/03/2022 11:20 AM, LOCATION [facility] INDICATION: N40.1: Benign prostatic hyperplasia with lower [...] of the inferior gluteal branch (series 11 [id number], series 7 image 127). Prostatic artery arises [...] Hay on 07/05/2022 10:19 PM Klarissa Garcia TECH WRITER-CASHIER RECEPTIONIST CT ORDERABLES * (ABNORMAL) CREATININE - POCT INTERFACED (07/03/2022 11:04 AM CDT) Creatinine POCT 1.30 0.30 - 1.30 mg/dL 07/03/2022 11:29 AM CDT [facility] Comment:CT range acceptable eGFR 59(L) >90 mL/min/1.7 3 m2 07/03/2022 11:29 AM CDT [facility] Blood BLOOD SPECIMEN / Unknown 07/03/2022 11:04 AM CDT 07/03/2022 11:29 AM CDT Klarissa Jose [facility] LAB - POINT OF C ARE ORDERABLES [facility] [address] [place] [address], [facility] [phone] documented in this encounter Visit Diagnoses Diagnosis Benign prostatic hyperplasia with urinary obstruction- Primary Lung nodule, solitary Elevated PSA Elevated prostate specific antigen (PSA) Chronic prostatitis Heart palpitations Palpitations Benign prostatic hyperplasia with lower urinary tract symptoms, symptom details unspecified documented in this encounter Administered Medications Inactive Administered Medications - up to 3 most recent administrations Medication Order MAR Action Action Date Dose Rate Site iopamidol (Isovue 370) 76 % contrast Intravenous, CONTRAST ONCE, Starting on Sun07/03/22 at 1051, Until Sun07/03/22 at 1251 $ Given - Contrast 07/03/2022 10:53 AM CDT 100 mL nitroGLYCERIN (Nitrostat) tablet 0.4 mg 0.4 mg, Sublingual, EVERY 5 MIN PRN, Angina, 2 doses, Starting on Sun07/03/22 at 1038, Until Sun07/03/22 at 1251, Every 5 minutes as needed, may repeat up to 2 doses documented in this encounter Active and Recently Administered Medications Times are shown in CDT. Scheduled Medication Order 07/01/2022 07/02/2022 07/03/2022 iopamidol (Isovue 370) 76 % contrast Intravenous, CONTRAST ONCE, Starting on Sun07/03/22 at 1051, Until Sun07/03/22 at 1251 1053 ($ Given - Cont rast - Provider: Kaleb J. Anabelle, RT(R)) PRN Medication Order 07/01/2022 07/02/2022 07/03/2022 nitroGLYCERIN (Nitrostat) tablet 0.4 mg 0.4 mg, Sublingual, EVERY 5 MIN PRN, Angina, 2 doses, Starting on Sun07/03/22 at 1038, Until Sun07/03/22 at 1251, Every 5 minutes as needed, may repeat up to 2 doses documented in this encounter Care Teams Split And Drum Room Supervisor Relationship Specialty Start Date End Date Fabiano Mosley MD PCP - General 12/06/18 documented as of this encounter
--- OUTSIDE RECORDS SUMMARY | 2024-04-12 09:03 | XMS_ITS | Encounter Summary ---
Author Organization [facility] Address [address] [place] [address] Care Team Providers Care Reed Fixer Name Role Phone Fabiano Mosley MD Primary Care Provider [phone] [phone] Reason for Visit * Reason Comments Follow-up Enlarged prostate Encounter Details Date Type Department Care Team (Late st Contact Info) Description 06/09/2022 9:30 AM NEEDLE GRADER Office Visit [facility] Urology [address] [place] [address] Arron Anne MD [address] [place] [address] Enlarged prostate (Primary Dx); Benign prostatic hyperplasia with urinary obstruction Social History Tobacco Use Types Packs/Day Years [...] Sign Reading Time Taken Comments Blood Pressure 185/111 06/09/2022 9:41 AM NEEDLE GRADER Pulse 71 06/09/2022 9:41 AM NEEDLE GRADER Temperature 36.7 ??C (98.1 ??F) 06/09/2022 9:41 AM CS T Respiratory Rate - - Oxygen Saturation 99% 06/09/2022 9:41 AM NEEDLE GRADER Inhaled Oxygen Concentration - - Weight 73.9 kg (163 lb) 06/09/2022 9:41 AM NEEDLE GRADER Height 185.4 cm (6' 1 ) 06/09/2022 9:41 AM NEEDLE GRADER Body Mass Index 21.51 06/09/2022 9:41 AM NEEDLE GRADER documented in this encounter Progress Notes * Bj Morales MD - 06/09/2022 10:07 AM CST [facility] Department of Surgery Clinic Progress Note Urology Clinic Progress Note Patient Name: Cruz Carreon Date of : 1950 Subjective Cruz Carreon is a 72 year old male who presents for follow up for BPH/LUTS. Initially seen by Dr. Yip in 2018 for BPH with bothersome symptoms despite tamsulosin and finasteride. Underwent Rezum treatment 01/2019. Had improvement in symptoms for some time but then had worsening of his symptoms. Most bothered by nocturia but also has weak stream during the day. Preferstreatments that preserve ejaculatory and sexual function. Had episode of urinary retention 12/2021 requiring marks catheter, no subsequent episodes of retention since that time. When last seen in clinic last February he was started on rapaflo (had previous orthostatic hypotension on tamsulosin). Didnot notice improvement with this. Was started on cialis 5mg qday for urinary symptoms and does notice some improvement with this. Takes higher PRN dose for ED with good effect. He stopped taking lastweek after a fall while at work. Per patient the ambulance arrived, his vitals were stable, and didnot go to the hospital. Blood pressure elvated in clinic today , 185/111, but currently asymptomatic. He's interested in PAE for further BPH treatment. PVR today in clinic 49cc. Past Medical History: Diagnosis Date ??? Arthritis No past surgical history on file. Social History Socioeconomic History [...] Never ??? Sexual activity: Not on file Other Topics Concern ??? Not on file Social History Narrative ??? Not on file Social Determinants of Health Financial Resource Strain: Not on file Food Insecurity: Not on file Transportation Needs: Not on file Stress: Not on file Housing Stability: Not on file No family history on file. Review of Systems Constitutional: Negative for fatigue, fevers, chills, weight change Eyes: Negative for visual changes CV: Negative for chest pain Pulm: Negative for dyspnea GI: Negative for abdominal pain, nausea, vomiting, diarrhea : Negative for dysuria, hematuria, nocturia, weak stream MSK: Negative for myalgias, arthralgias Skin: Negative for skin changes Neuro: Negative for weakness Remainder of ROS negative unless documented in HPI Objective Vitals: 06/09/22 0941 BP: (!) 185/111 Pulse: 71 Temp: 98.1 ??F (36.7 ??C) SpO2: 99% Weight: 73.9 kg (163 lb) Height: 1.854 m (6' 1 ) Current Outpatient Medications Medication Sig Dispense Refill ??? Ibuprofen (MOTRIN PO) Take 1 tablet by mouth 3 times daily as needed ??? Multiple Vitamins-Minerals (CENTRUM SILVER 50+MEN PO) Take 1 tablet by mouth once daily (Patient not taking: Reported on 02/10/2022) ??? Pyridoxine HCl (B-6) 50 MG Take 1 tablet by mouth once daily (Patient not taking: Reported on 02/10/2022) ??? silodosin (Rapaflo) 8 MG capsule Take 1 (one) capsule by mouth daily with breakfast (Patient not taking: Reported on 06/09/2022) 30 capsule 3 ??? tadalafil (Cialis) 5 MG tablet TAKE 1 TABLET BY MOUTH NEEDED 30 tablet 0 ??? traZODone (Desyrel) 100 MG tablet Take 1 (one) tablet by mouth as needed ??? zinc gluconate 50 MG tablet Take 50 mg by mouth once daily (Patient not taking: Reported on 02/10/2022) No current facility-administered medications for this visit. Physical Exam Gen: No acute distress HEENT: Normocephalic, atraumatic, EOMI CV: Regular rate Pulm: Nonlabored respirations on room air Abd: Soft, NT/ND MSK: WWP, no cyanosis or edema Neuro: Moving all extremities spontaneously, no focal deficits Psych: Appropriate mood and affect Labs: CBC: No results for input(s): WBC, HGB, HCT, PLT in the last 74105 hours. BMP: No results for input(s): NA, K, CL, CO2, BUN, CREATININE, GLU in the last 02286 hours. No results for input(s): PSA in the last 78992 hours. Imaging: MRI prostate (12/2018): 1. Prostatic hyperplasia (PI-RADS 2). No focal lesion concerning for prostate cancer is identified. Pathology: None Assessment/Plan Cruz Carreon is a 72 year old male with bothersome urinary symptoms due to BPH s/p Rezum 2018,no improvement on alpha estefania , some improvement recently with cialis 5mg qday. -Discussed further treatment options. He is interested in procedure that will preserve ejaculation and sexual function but not interested in repeat Rezum. He's interested in PAE. Will place referral to interventional radiology. -Okay to continue the cialis 5mg qday for now. Unlikely the cause of his syncope as he is quite hypertensive today in clinic. Recommend he follow up with PCP next week to discuss, he has an appointment scheduled next week. Attending: MD Bj Cheatham MD Urology Resident, PGY-4 06/09/2022 10:07 AM LE GRADER Associated attestation - Arron Anne MD - 06/13/2022 9:38 AM NEEDLE GRADER Attending Physician Supervisory Note I personally interviewed and examined the patient and agree with the doctor above. Patient continued to advise to use blood pressure medications for his high blood pressure. He will follow-up with his primary care physician. He would like to consider options that can help him with his urologic symptoms that do not cause retrograde ejaculation. He will visit with her interventional radiology colleagues to consider the possibility of arterial embolization. Patient follow-up with me once he is made a decision. Arron Anne MD documented in this encounter Procedure Notes * Annika Webster RN - 06/09/2022 9:49 AM CSTAssociated Order(s): PROC BLADDER SCAN Procedure(s): TN MSR PVR U&/BLADD CAPCTY US NON Pre-Procedure Diagnose(s): Enlarged prostate PVR= 49mL LE GRADER documented in this encounter Plan of Treatment Upcoming Encounters Date Type Department Care Team (Late st Contact Info) Description 07/23/2024 11:00 AM CDT Appointment [facility] VASCULAR US [address] [place] [address] Herminia Howe MD [address] [place] [address] [address]L [place] [address] 07/23/2024 12:15 PM CDT Office Visit [facility]ician Group - Vascular Surgery [address] [place] [address], [place] [address] Herminia Howe MD [address] [place] [address] [address] [place] [phone] documented as of this encounter Procedures Procedure Name Priority Date/Time Associated Diagnosis Comments URINALYSIS AUTO - POINT OF CARE (AMB) [facility] Routine 06/09/2022 9:51 AM NEEDLE GRADER Enlarged prostate TN MSR PVR U&/BLADD CAPCTY US NON Routine 06/09/2022 9:49 AM NEEDLE GRADER Enlarged prostate documented in this encounter Results * URINALYSIS AUTO - POINT OF CARE (AMB) [facility] (06/09/2022 9:51 AM NEEDLE GRADER) Glucose UA neg Bilirubin UA POCT neg Ketones UA POCT neg Specific Gunpowder UA 1.025 Blood Urine POCT neg pH UA 6.0 Protein UA neg Urobilinogen UA neg Nitrite UA neg WBC UA neg Urine URINE / Unknown 06/09/2022 9 :51 AM NEEDLE GRADER Arron Anne MD LAB - POINT OF CARE ORDERABLES * TN MSR PVR U&/BLADD CAPCTY US NON (06/09/2022 9:49 AM NEEDLE GRADER) Narrative Annika Webster RN - 06/09/2022 9:49 AM NEEDLE GRADER Annika Webster RN ? 06/13/2022 ??9:38 AM PVR= 49mL Arron Anne MD PROCEDURE/MINOR SONDRA GICAL ORDERABLES documented in this encounter Visit Diagnoses Diagnosis Enlarged prostate- Primary Hypertrophy of prostate without urinary obstruction and other lower urinary tract symptoms (LUTS) Benign prostatic hyperplasia with urinary obstruction documented in this encounter Care Teams Reed Fixer Relationship Specialty Start Date End Date Fabiano Mosley MD PCP - General 12/06/18 documented as of this encounter
--- OUTSIDE RECORDS SUMMARY | 2024-04-12 09:03 | XMS_ITS | Encounter Summary ---
Author Organization [facility] Address [address] [place] [address] Care Team Providers Care Mathematical Engineering Technician Name Role Phone Fabiano Mosley MD Primary Care Provider [phone] Reason for Visit * Reason Onset Date Comments Surgery Scheduling 11/15/2023 Encounter Details Date Type Department Care Team (Late st Contact Info) Description 11/15/2023 Telephone [facility] - Vascular Surgery [address] [place] [address], [place] [address] Herminia Howe MD [address] [place] [address] [place] [address] Surgery Scheduling Social History Tobacco Use Types Packs/Day Years [...] encounter Miscellaneous Notes * Telephone Encounter - Americo Jackson - 11/15/2023 11:09 AM CDT Called patient to discuss scheduling surgery with . LM w/ man who answered pt's phone #. He took info and will have pt c/b. They are not set up with [employer], so no message was sent that way. I did not leave any potential dates in my message, but I am looking at 11/26/23 for this SX to allow time for Duplex to be done. Waiting to hear back from pt. documented in this encounter Plan of Treatment Upcoming Encounters Date Type Department Care Team (Late st Contact Info) Description 07/23/2024 11:00 AM CDT Appointment [facility] VASCULAR US [address] [place] [address] Herminia Howe MD [facility] 2L [place] [address] 07/23/2024 12:15 PM CDT Office Visit [facility] - Vascular Surgery [facility], [place] [address] Herminia Howe MD [facility] 2L [place] [address] documented as of this encounter Goals Goal Patient Goal Type Associated Problems Recent Progress Patient-Stated? Author Patient will adhere to medication regimen General On track( 023 8:59 AM CDT) No Florence, Dari, RN documented as of this encounter Visit Diagnoses Not on filedocumented in this encounter Care Teams Mathematical Engineering Technician Relationship Specialty Start Date End Date Fabiano Mosley MD PCP - General 12/06/18 documented as of this encounter
--- OUTSIDE RECORDS SUMMARY | 2024-04-12 09:03 | XMS_ITS | Encounter Summary ---
Author Organization [facility] Address [address] [facility] [place] [address] Care Team Providers Care Building Construction Foreman Name Role Phone Fabiano Mosley MD Primary Care Provider [phone] Reason for Visit * Reason Comments Refill Request Encounter Details Date Type Department Care Team (Late Contact Info) Description 01/16/2022 Refill [facility] [address] [place] [address] Ilda Yip, [address] [facility] 2L DIV [place] [address] Refill Request Social History Tobacco Use Types [...] [facility] VASCULAR US [address] [place] [phone] Herminia Howe MD [address] [facility] 2L DIV [place] [address] 07/23/2024 12:15 PM CDT Office Visit [facility] - Vascular Surgery [address] [place] [address], [place] [address] Herminia Howe MD [address] [place] [address] 2L DIV [place] [address] documented as of this encounter Visit Diagnoses Not on filedocumented in this encounter Care Teams Building Construction Foreman Relationship Specialty Start Date End Date Fabiano Mosley MD PCP - General 12/06/18 documented as of this encounter
--- OUTSIDE RECORDS SUMMARY | 2024-04-12 09:03 | XMS_ITS | Encounter Summary ---
Author Organization [facility] Address [address] [place] [address] Care Team Providers Care Telehealth Nurse Educator Name Role Phone Fabiano Mosley MD Primary Care Provider [phone] [phone] Reason for Referral * Radiology Services (Routine) - Closed Specialty Diagnoses / Procedures Referred By Lissa t Referred To Contact MRI Diagnoses Elevated PSA Procedures MRI PELVIS MALE WWO CONTRAST Ilda Yip DO [address] [facility] [address] [place] [address] [facility] [address] [place] [address] Referral ID Status Reason Start Date Expiration Date Visits Re quested Visits Authorized [id number] Closed 12/11/2018 06/09/2019 1 1 Reason for Visit * Reason Comments Establish Care prostatic hyperplasi s Encounter Details Date Type Department Care Team (Late st Contact Info) Description 12/10/2018 8:30 AM CDT Office Visit [facility] [address] [place] [address] Ilda Yip DO [address] [place] [address] Lower urinary tract symptoms (LUTS) (Primary Dx); Benign localized prostatic hyperplasia with lower urinary tract symptoms (LUTS); Elevated PSA Social History Tobacco Use Types Packs/Day Years [...] Sign Reading Time Taken Comments Blood Pressure 105/68 12/10/2018 8:23 AM CDT Pulse 70 12/10/2018 8:23 AM CDT Temperature 36.4 ??C (97.6 ??F) 12/10/2018 8:23 AM CD T Respiratory Rate 20 12/10/2018 8:23 AM CDT Oxygen Saturation 97% 12/10/2018 8:23 AM CDT Inhaled Oxygen Concentration - - Weight 70.3 kg (155 lb) 12/10/2018 8:23 AM CDT Height 185.4 cm (6' 1 ) 12/10/2018 8:23 AM CDT Body Mass Index 20.45 12/10/2018 8:23 AM CDT documented in this encounter Progress Notes * Ilda Yip DO - 12/11/2018 5:08 PM CDT [facility] Division of Urologic Surgery Ilda Yip DO Date of Visit: 12/10/2018 Patient Name: Cruz Carreon : 1950 Medical Record: [id number] Contact (home) Age: [age] year old Sex: male Referring Physician: No referring provider defined for this encounter. Chief Complaint: LUTS, elevated PSA History of Present Illness: The patient is a 68 year old male for follow up of prostate issues. He has been seen by Dr. Rubio and is here for second opinion. He has had LUTS for about 2 years that have been bothersome. He has been managed with finasteride and tamsulosin and reports improvementin symptoms, but reports side effects of dizziness (fell and hurt his left hand) and fatigue. 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 He takes the meds despite side effects because his LUTS are sosevere. He would like to try another medication if possible. He had an elevated PSA to 20, and was given finasteride and treated for possible prostatitis and itcame down to 6.9. Underwent TRUS/PNB and per patient and Dr. Rubio, the path lab had a processing error which degraded the samples, so they were not good enough for review to rule out cancer. Benign tissue was seen. He does not want another biopsy at [facility]. he would like to avoid one if possible as it wasuncomfortable. He smokes and is interested in quitting. Denies hematuria. AUASS:5, 5, 5, 5, 5, 4, 4 = 34 with QOL 6, terrible. Past Medical History; Past Medical History: Diagnosis Date ??? Arthritis Past Surgical History: No past surgical history on file. Current Medications: Current Outpatient Medications Medication Sig Dispense Refill ??? escitalopram (LEXAPRO) 20 MG tablet ??? FINASTERIDE PO ??? tadalafil (CIALIS) 5 MG tablet CHEW AND SWALLOW ONE GUMMY ONCE DAILY. ??? tamsulosin (FLOMAX) 0.4 MG capsule Take 0.4 mg by mouth No current facility-administered medications for this visit. [...] file Gets together: Not on file Attends buddhist service: Not on file Active member of [...] Ears/nose/mouth: Negative Lungs:Negative Heart:Negative Gastrointestinal: negative Genitourinary: urgency, frequency, incomplete emptying, dribbling Musculoskeletal: Negative Nervous system: Negative Reproductive system: Negative Hematologic: Negative Lymphatic: Negative Endocrine: Negative Physical Exam: Vital Signs: BP 105/68 Pulse 70 Temp 97.6 ??F (36.4 ??C) (Oral) Resp 20 Ht 6' 1 (1.854 m) Wt 155 lb (70.3 kg) SpO2 97% BMI 20.45 kg/m2 Gen: Alert and oriented x3 Head: normocephalic Lungs: Non-labored respirations Heart: RRR Abd: soft, nontender, nondistended : no CVA tenderness, no suprapubic pain [place]AWNEE offered, patient declined. MSK: normal gait and strength Skin: No rashes PVR per bladder scanner: 253cc Imaging (images and reports reviewed): No new imaging Laboratory Studies: Glucose UA Date Value Ref Range Status 12/10/2018 neg Final Bilirubin UA POCT Date Value Ref Range Status 12/10/2018 neg Final Ketones UA POCT Date Value Ref Range Status 12/10/2018 neg Final Specific Patagonia UA Date Value Ref Range Status 12/10/2018 1.010 Final Blood Urine POCT Date Value Ref Range Status 12/10/2018 neg Final Protein UA Date Value Ref Range Status 12/10/2018 neg Final Urobilinogen UA Date Value Ref Range Status 12/10/2018 3.5 Final Nitrite UA Date Value Ref Range Status 12/10/2018 neg Final WBC UA Date Value Ref Range Status 12/10/2018 70 Final PSA at OSH 07/11/2018: 6.9 Microbiology: No new micro Pathology: Reviewed with Dr. Rubio via phone, TRUS/PNB showed degraded tissue, unable to determine if there was cancer, most tissue seen was benign however. Diagnosis: 68yo male with severe LUTS, elevated PSA s/p equivocal biopsy at OSH Recommendations: DC tamsulosin, try alfuzosin. Also, advised to drink more water. He doesn't drink to avoid voiding often and this probably makes his dizziness worse. Confirmed that biopsy was damaged during processing and pathology was unable to say whether cancer is ruled out. Patient does not want to undergo another biopsy. Given 70g prostate, I think prostate MRI is best course anyway to determine if there are suspiciouslesions. If MRI is negative, patient would like to proceed with rezum. BPH surgical options discussed with patient: Urolift, Rezum, greenlight laser vaporization and transurethral resection of the prostate, prostatic artery embolization. Advantages and disadvantages, risks and benefits of each discussed. Patient was given educational materials. 45 minutes were spent with patient. >50% were spent counseling patient. Patient's questions were answered and patient agrees with plan. Ilda Yip DO 12/10/2018 documented in this encounter Plan of Treatment Upcoming Encounters Date Type Department Care Team (Late st Contact Info) Description 07/23/2024 11:00 AM CDT Appointment [facility] VASCULAR US [address] [place] [address] Herminia Howe MD [address] [place] [address] 2L [place] [phone] 07/23/2024 12:15 PM CDT Office Visit [facility] - Vascular Surgery [address] [place] [address], [place] [address] Herminia Howe MD [address] [place] [address] 2L [place] [phone] documented as of this encounter Procedures Procedure Name Priority Date/Time Associated Diagnosis Comments URINALYSIS AUTO - POINT OF CARE (AMB) [facility] Routine 12/10/2018 Lower urinary tract symptoms (LUTS) documented in this encounter Results * MRI PELVIS MALE WWO CONTRAST (01/08/2019 8:15 AM CDT) Anatomical Region Laterality Modality Pelvis Magnetic Resonan ce 01/08/2019 9:10 AM CDT Impressions 01/08/2019 9:36 AM CDT IMPRESSION: 1. Prostatic hyperplasia (PI-RADS 2). No focal lesion concerning for prostate cancer is identified. Dictated by Noble Torres MD (residential real estate agent). I, Dr. JAIME YEH M.D. have personally [...] is identified. Dictated by Noble Torres MD (residential real estate agent). I, Dr. JAIME YEH M.D. have personally reviewed and interpreted this examination/study. This report was electronically signed by JAIME YEH M.D. on01/08/2019 9:36 AM . Ilda Yip DO MR ORDERABLES * CULTURE URINE (12/10/2018 10:47 AM CDT) Culture Urine No growth (<100 CFU/mL) DM 12/12/2018 10:13 AM CDT [facility] Urine MID-STREAM URINE SPECIMEN / Unknown Collection / Unknown 12/10/2018 10:47 AM CDT 12/10/2018 3:00 PM CDT Ilda Yip DO LAB - MICROBIOLOGY ORDERABLES [facility] [address] [place], [place] [address], [facility] [phone] * URINALYSIS AUTO - POINT OF CARE (AMB) [facility] (12/10/2018) Glucose UA neg Bilirubin UA POCT neg Ketones UA POCT neg Specific Patagonia UA 1.010 Blood Urine POCT neg pH UA 6.0 Protein UA neg Urobilinogen UA 3.5 Nitrite UA neg WBC UA 70 Urine URINE / Unknown 12/10/2018 Ilda Yip DO LAB - POINT OF CAR E ORDERABLES documented in this encounter Visit Diagnoses Diagnosis Lower urinary tract symptoms (LUTS)- Primary Other symptoms involving urinary system Benign localized prostatic hyperplasia with lower urinary tract symptoms (LUTS) Benign localized hyperplasia of prostate with urinary obstruction and other lower urinary tract symptoms (LUTS) Elevated PSA Elevated prostate specific antigen (PSA) Elevated PSA Elevated prostate specific antigen (PSA) documented in this encounter Care Teams Telehealth Nurse Educator Relationship Specialty Start Date End Date Fabiano Mosley MD PCP - General 12/06/18 documented as of this encounter
--- OUTSIDE RECORDS SUMMARY | 2024-04-12 09:03 | XMS_ITS | Encounter Summary ---
Author Organization [facility] Address [address] [facility] [place] [address] Care Team Providers Care Electrical Cad Technician Name Role Phone Fabiano Mosley MD Primary Care Provider [phone] Reason for Visit * Reason Comments Refill Request Encounter Details Date Type Department Care Team (Late Contact Info) Description 09/05/2021 Refill [facility] [address] [place] [address] Ilda Yip, [address] [facility] 2L [place] [address] Refill Request Social History Tobacco Use Types [...] AM CDT Appointment [facility] VASCULAR US [address] [place] [phone] Herminia Howe MD [address] [facility] 2L [place] [phone] 07/23/2024 12:15 PM CDT Office Visit [facility] - Vascular Surgery [address] [place] [address], [place] [address] Herminia Howe MD [address] [place] [address] 2L [place] [address] documented as of this encounter Visit Diagnoses Not on filedocumented in this encounter Care Teams Electrical Cad Technician Relationship Specialty Start Date End Date Fabiano Mosley MD PCP - General 12/06/18 documented as of this encounter
--- OUTSIDE RECORDS SUMMARY | 2024-04-12 09:03 | XMS_ITS | Encounter Summary ---
Author Organization [facility] Address [address] [place] [address] Care Team Providers Care Intelligence Operations Specialist Name Role Phone Fabiano Mosley MD Primary Care Provider [phone] Reason for Visit * Reason Onset Date Comments Pre Op Call 08/01/2022 Re: 08/02 Prostat e Artery Embolization Encounter Details Date Type Department Care Team ([facility] Contact Info) Description 08/01/2022 Telephone [facility] IVR [address] [place] [phone] Sagrario Hennessy RN Pre Op Call (Re: 08/02 Prostate Artery Embolization) Social History Tobacco Use Types Packs/Day Years [...] Upcoming Encounters Date Type Department Care Team ([facility] Contact Info) Description 07/23/2024 11:00 AM CDT Appointment [facility] VASCULAR US [address] [place] [address] Herminia Howe MD [address] [facility] 2L [place] [address] 07/23/2024 12:15 PM CDT Office Visit [facility] - Vascular Surgery [address] [facility], [place] [address] Herminia Howe MD [address] [facility] 2L [place] [address] documented as of this encounter Goals Goal Patient Goal Type Associated Problems Recent Progress Patient-Stated? Author Patient will adhere to medication regimen General On track( 023 8:59 AM CDT) Dari Gardner RN documented as of this encounter Visit Diagnoses Not on filedocumented in this encounter Care Teams Intelligence Operations Specialist Relationship Specialty Start Date End Date Fabiano Mosley MD PCP - General 12/06/18 documented as of this encounter
--- OUTSIDE RECORDS SUMMARY | 2024-04-12 09:03 | XMS_ITS | Encounter Summary ---
Author Organization [facility] Address [address] [place] [address] Care Team Providers Care Structural Steel Trades Worker Name Role Phone Fabiano Mosley MD Primary Care Provider [phone] Reason for Referral * Radiology Services (Routine) - Closed Specialty Diagnoses / Procedures Referred By Orlandoac t Referred To Contact MRI Diagnoses Elevated PSA Procedures MRI PELVIS MALE WWO CONTRAST Ilda Yip DO [address] [address] [facility] [address] [place] [phone] Referral ID Status Reason Start Date Expiration Date Visits Re quested Visits Authorized [id number] Closed 12/11/2018 06/09/2019 1 1 Reason for Visit * Radiology Services (Routine) - Closed Specialty Diagnoses / Procedures Referred By Contac t Referred To Contact MRI Diagnoses Elevated PSA Procedures MRI PELVIS MALE WWO CONTRAST Ilda Yip DO [address] [address] [facility] [address] [place] [address] Referral ID Status Reason Start Date Expiration Date Visits Re quested Visits Authorized [id number] Closed 12/11/2018 06/09/2019 1 1 Encounter Details Date Type Department Care Team (Latest Contact Info) Description 01/08/2019 6:31 AM CDT - 01/08/2019 11:59 PM CDT Hospital Encounter [facility] MRI [address] [place] [address] Ilda Yip DO [address] [facility] 2L DIV [place] [phone] Discharge Disposition: Home or Self Care Social [...] SWALLOW ONE GUMMY ONCE DAILY. 02/22/2018 2020 documented as of this encounter Plan of Treatment Upcoming Encounters Date Type Department Care Team (Late st Contact Info) Description 07/23/2024 11:00 AM CDT Appointment [facility] VASCULAR US [address] [place] [address] Herminia Howe MD [address] [place] [address] 2L DIV [place] [phone] 07/23/2024 12:15 PM CDT Office Visit [facility] - Vascular Surgery [address] [place] [address], [place] [phone] Herminia Howe MD [address] [place] [address] 2L DIV [place] [address] Scheduled Orders Name Type Priority Associated Diagnoses Order Schedule CREATININE BLOOD - POCT (IP) [facility] Point of Care Testing Routine Elevated PSA ONCE for 1 Occurrences starting 01/08/2019 until 01/08/2019 documented as of this encounter Procedures Procedure Name Priority Date/Time Associated Diagnosis Comments MRI PELVIS RECTAL PROTOCOL WWO CONT Routine 01/08/2019 8:15 AM CDT Elevated PSA documented in this encounter Results * MRI PELVIS MALE WWO CONTRAST (01/08/2019 8:15 AM CDT) Anatomical Region Laterality Modality Pelvis Magnetic Resonan ce 01/08/2019 9:10 AM CDT Impressions 01/08/2019 9:36 AM CDT IMPRESSION: 1. Prostatic hyperplasia (PI-RADS 2). No focal lesion concerning for prostate cancer is identified. Dictated by Noble Torres MD (front loader residential driver). I, Dr. JAIME YEH M.D. have personally [...] is identified. Dictated by Noble Torres MD (front loader residential driver). I, Dr. JAIME YEH M.D. have personally reviewed and interpreted this examination/study. This report was electronically signed by JAIME YEH M.D. on01/08/2019 9:36 AM . Ilda Yip DO MR ORDERABLES documented in this encounter Visit Diagnoses Diagnosis Elevated PSA Elevated prostate specific antigen (PSA) documented in this encounter Administered Medications Inactive Administered Medications - up to 3 most recent administrations Medication Order MAR Action Action Date Dose Rate Site gadobenate dimeglumine (MULTIHANCE) injection Intravenous, CONTRAST ONCE, Starting on Sun01/08/19 at 0710, Until Laury 01/09/19 at 0142 $ Given - Contrast 01/08/2019 8:15 AM CDT 14 mL documented in this encounter Care Teams Structural Steel Trades Worker Relationship Specialty Start Date End Date Fabiano Mosley MD PCP - General 12/06/18 documented as of this encounter
--- OUTSIDE RECORDS SUMMARY | 2024-04-12 09:03 | XMS_ITS | Encounter Summary ---
Author Organization [facility] Address [address] [place] [address] Care Team Providers Care Trade Show Coordinator Name Role Phone Fabiano Mosley MD Primary Care Provider [phone] [phone] Reason for Referral * Radiology Services (Urgent) - Closed Specialty Diagnoses / Procedures Referred By Contac t Referred To Contact Vascular Lab Diagnoses Bilateral carotid artery stenosis Procedures VAS Carotid Duplex Bilateral Herminia Howe MD [address] [place] [address] 2L [place] [address] [facility] [address] [place] [address] Referral ID Status Reason Start Date Expiration Date Visits Re quested Visits Authorized [id number] Closed 11/14/2023 11/13/2024 1 1 Reason for Visit * Reason Comments Establish Care Encounter Details Date Type Department Care Team (Late st Contact Info) Description 11/14/2023 10:45 AM CDT Office Visit [facility] - Vascular Surgery [address] [place] [address], [place] [address] Herminia Howe MD [address] [place] [address] 2[address] [place] [address] Bilateral carotid artery stenosis (Primary Dx); Stenosis of left carotid artery without cerebral infarction; Preoperative testing Social History Tobacco Use Types Packs/Day [...] Sign Reading Time Taken Comments Blood Pressure 154/96 11/14/2023 10:27 AM CDT Pulse 68 11/14/2023 10:27 AM CDT Temperature 36.7 ??C (98 ??F) 11/14/2023 10:27 AM CDT Respiratory Rate - - Oxygen Saturation 100% 11/14/2023 10:27 AM CDT Inhaled Oxygen Concentration - - Weight 75.3 kg (166 lb) 11/14/2023 10:27 AM CDT Height - - Body Mass Index 21.9 08/02/2022 12:17 PM CDT documented in this encounter Functional Status [...] No 08/02/2022 documented as of this encounter Patient Instructions * Patient Instructions* Echo Yan RN - 11/14/2023 11:06 AM CDT You will be called to schedule your carotid duplex. We will call with results and plan of care. Call with any questions or concerns [phone] documented in this encounter Progress Notes * Herminia Howe MD - 11/14/2023 11:06 AM CDT Vascular Surgery History and Physical Encounter Date: 11/14/2023 Patient's Primary Care Physician: Fabiano Mosley MD Name: Cruz Carreon Age: [age] year old Sex: male Date: 11/14/2023 Chief Complaint: Left carotid stenosis History of Present Illness: Cruz Carreon is a 73 year old male with PMHx s/f syncopal episodesand BPH who presents here today for incidentally found left carotid stenosis on CT scan during workup for syncopal episodes. Patient reports that in the last 6 years, he has had 7 episodes where he becomes lightheaded and diaphoretic prior to passing out. Denies any symptoms of stroke or any vision changes. Reports a >50 yr hx of smoking, stopped drinking alcohol 3 months ago. CTA demonstratesstring sign on the left with diminutive left ICA following stenosis suggestive of chronic disease. Past Medical History: Past Medical History: Diagnosis Date Arthritis Essential hypertension Syncope and collapse Past Surgical History: Past Surgical History: Procedure Laterality Date COLONOSCOPY WITH POLYPECTOMY Fracture Repair Right right arm ORIF PROSTATE BIOPSY, NEEDLE Septoplasty Tonsillectomy Bilateral Home Medications: Current Outpatient Medications Medication Sig atorvastatin (Lipitor) 20 MG tablet SUMAtriptan (Imitrex) 50 MG tablet TAKE 1 [...] Not Currently Types: Marijuana Comment: occasionally smokes pot, states its been 8 months Family History: Family History Problem Relation Name Age of Onset Diabetes; unknown type Mother Other - Cardiac Father Cancer - Lung Sister Other - Cardiac Brother Review of Systems Pertinent positives of ROS are listed above Exam Vitals: 11/14/23 1027 BP: 154/96 Pulse: 68 Temp: 98 ??F (36.7 ??C) SpO2: 100% Weight: 75.3 kg (166 lb) BP 154/96 Pulse 68 Temp 98 ??F (36.7 ??C) Wt 75.3 kg (166 lb) SpO2 100% Physical Exam: Gen: NAD and A&O x 3 ENT: Normocephalic and EOMI Resp: unlabored breathing on RA CV: RRR Abd: Soft, Non-distended, and Non-peritoneal, no rebound/guarding MSK: WWP, neurointact Psych: Appropriate mood and affect Data Recent Labs Component Name 08/02/22 1206 WBC 8.0 HGB 15.2 HCT 43.7 Recent Labs Component Name 08/02/22 1206 NA 136 CL 103 CO2 25 BUN 18 CREATININE 1.00 CALCIUM 9.6 No results for input(s): PROT , ALB , TBILI , AST , ALT , ALKPHOS in the last 72453 hours. @LABRCNT(Protime:3,INR:3,PTT:3) Imaging IR EMBOLIZATION TRANSCATH THPY Result Date: 08/18/2022 PROCEDURE: IR EMBOLIZATION TRANSCATH THPY DATE/TIME OF EXAM: 08/02/2022 4:55 PM CLINICAL INFORMATION: None relevant/not provided if blank. Indication: N40.1: Benign prostatic hyperplasia with urinary obstruction N13.8: Benign prostatic hyperplasia with urinary obstruction Additional History: History: Cruz Durham Adisjohana a 72 year oldmalereferred for prostate artery embolization. He was seen byDr. Yip [id number] for BPH with bothersome symptoms despite tamsulosin [...] draped in the usual sterile fashion. A emt i/85 film of pelvis wasobtained, which was unremarkable. [...] documented. Following a series of exchanges, a 5.5-Mongolian vascular sheath was placed. The left internal [...] Calvin Loving MD on 08/18/2022 1:57 PM No results found. Assessment: Cruz Carreon is a 73 year old male with asymptomatic carotid stenosis and string sign on left who presents here today for evaluation. Do not believe that this is related to his syncopal episodes however the high degree of stenosis on the left does warrant repair. Plan: - Recommend duplex for evaluation of left carotid artery and confirm stenosis vs occlusion - Patient should undergo EKG/other PAT testing as this will require repair - Recommend ASA 81mg qd as able, patient will need to be on this for life. - Will call with results of repair and schedule accordingly Patient seen and discussed with Dr. Herminia Howe. Flo Rivera MD Vascular Surgery Resident, PGY-3 11/14/23 11:07 AM Attending/Teaching Physician Documentation I have seen and examined the patient with the resident, independently reviewed lab and imaging results from [facility] and I agree with the findings and plan of care as documented by the resident. Pt symptoms are not explained by carotid disease. ? If this is chronic. Duplex is ordered for slu. Pat will be done. Pt counseled that cea will prevent future stroke and most likely will not change his spells . Risks of intervention ncluding but not limited bleeding, infection, SC, stroke, cn injury described. Pt wishes to proceed. Date of Service is date of resident signature in resident note documented in this encounter Plan of Treatment Upcoming Encounters Date Type Department Care Team (Late st Contact Info) Description 07/23/2024 11:00 AM CDT Appointment [facility] VASCULAR US [address] [place] [address] Herminia Howe MD [address] [place] [address] 2L [place] [address] 07/23/2024 12:15 PM CDT Office Visit [facility] - Vascular Surgery [address] [place] [address], [place] [address] Herminia Howe MD [address] [place] [address] [address]L [place] [address] Scheduled Orders Name Type Priority Associated Diagnoses Orde r Schedule EKG 12-LEAD (CLINIC LAB PERFORMED) ECG HAI Preoperative testing Ordered: 11/14/2023 documented as of this encounter Goals Goal Patient Goal Type Associated Problems Recent Progress Patient-Stated? Author Patient will adhere to medication regimen General On track( 023 8:59 AM CDT) No Dari Torres RN documented as of this encounter Results * VAS Carotid Duplex [...] precerebral arteries without mention of cerebral infarction Stenosis of left carotid artery without cerebral infarction Preoperative testing Preoperative examination, unspecified Bilateral carotid artery stenosis Occlusion and stenosis of multiple and bilateral precerebral arteries without mention of cerebral infarction documented in this encounter Care Teams Trade Show Coordinator Relationship Specialty Start Date End Date Fabiano Mosley MD PCP - General 12/06/18 documented as of this encounter
--- OUTSIDE RECORDS SUMMARY | 2024-04-12 09:03 | XMS_ITS | Encounter Summary ---
Author Organization [facility] Address [address] [place] [address] Care Team Providers Care Whiskey Proof Reader Name Role Phone Fabiano Mosley MD Primary Care Provider [phone] Reason for Visit * Radiology Services (Routine) - Closed Specialty Diagnoses / Procedures Referred By Lissa hermosillo Referred To Contact Interventional Radiology Diagnoses Benign prostatic hyperplasia with urinary obstruction Procedures IR EMBOLIZATION TRANSCATH MELANIEY Calvin Loving MD [address] [place] [address] Sl Ivr [address] [place] [address] Referral ID Status Reason Start Date Expiration Date Visits Re quested Visits Authorized [id number] Closed 07/04/2022 07/04/2023 1 1 Encounter Details Date Type Department Care Team (Late st Contact Info) Description 08/02/2022 11:27 AM CDT - 08/02/2022 7:10 PM CDT Hospital Encounter SL [facility] OP [address] [place] [address] Calvin Loving MD [address] [place] [address] Raya Bolden MD [address] [facility] [address] [place] [address] Interven Radiology Discharge Disposition: Home or Self [...] Sign Reading Time Taken Comments Blood Pressure 115/87 08/02/2022 5:45 PM CDT Pulse 63 08/02/2022 5:45 PM CDT Temperature 36.5 ??C (97.7 ??F) 08/02/2022 5:01 PM CD T Respiratory Rate 18 08/02/2022 5:45 PM CDT Oxygen Saturation 97% 08/02/2022 5:45 PM CDT Inhaled Oxygen Concentration - - Weight 73.6 kg (162 lb 4.8 oz) 08/02/2022 12:17 PM CDT Height 185.4 cm (6' 1 ) 08/02/2022 12:17 PM CDT Body Mass Index 21.41 08/02/2022 12:17 PM CDT documented in this [...] atorvastatin (Lipitor) 20 MG tablet 06/07/2022 11/23/2023 ciprofloxacin (Cipro) 500 MG tablet Take 1 (one) tablet by mouth 2 times daily for 7 days 14 tablet 07/31/2022 08/07/2022 Ibuprofen (MOTRIN PO) Take 1 tablet by mouth 3 times daily as needed 11/14/2023 ibuprofen (Motrin) 800 MG tablet Take 1 (one) tablet by mouth 3 times daily for 7 days 21 tablet 07/31/2022 08/07/2022 pantoprazole EC (Protonix) 40 MG tablet Take 1 (one) tablet by mouth once daily for 7 days 7 tablet 07/31/2022 08/07/2022 phenazopyridine (Pyridium) 100 MG tablet Take 1 (one) tablet by mouth 2 times daily for 7 days 14 tablet 07/31/2022 08/07/2022 silodosin (Rapaflo) 8 MG capsule Take 1 (one) capsule by mouth daily with breakfast 30 capsule 3 02/10/2022 11/14/2023 solifenacin (Vesicare) 5 MG tablet Take 1 (one) tablet by mouth 2 times daily for 7 days 14 tablet 07/31/2022 08/07/2022 tadalafil (Cialis) 10 MG tablet TAKE 1 [...] as of this encounter Progress Notes * Leslie Redman RN - 08/02/2022 5:15 PM CDT Page to vascular weight loss consultant for post op orders, awaiting call back. * Lucinda Doss RN - 08/02/2022 5:05 PM CDT Patient to post-op bay 36. Bedside report and groin check with AVI Arnold. All questions answered * Lucinda Doss RN - 08/02/2022 4:54 PM CDT Procedure complete, patient tolerated well. VSS on room air - dressing clean and dry. No signs of oozing or hematoma noted. Patient assisted safely to stretcher, no distress noted. To post-procedure recovery * Lucinda Doss RN - 08/02/2022 4:50 PM CDT Interventional Radiology Nursing - End Procedure Note Sedation: Versed: 3 mg, Fentanyl: 150 mcg Sedation start time: 1440 hours Procedure start time: 1440 hours Procedure end time: 1645 hours Additional drugs: 500 mcg Nitroglycerin Contrast: 130 mL of Isovue-300 Fluoroscopy time: 40.9 min * Lucinda Doss RN - 08/02/2022 2:13 PM CDT Patient arrived room via stretcher, assisted to IR table and positioned safely. Placed on continuous monitoring per protocol. documented in this encounter H&P Notes * Roselyn Casanova APRN-THIAGO - 08/02/2022 7:26 AM CDT Vascular & Interventional Radiology Short Pre-Procedure History & Physical Patient: Cruz Carreon Age: [age] year old Date of : 1950 Date: 08/02/2022 Location: VIR Subjective: 72 year old male with a history of BPH. He underwent Rezum treatment in 2019, and has also been on tamsulosin and finasteride. He did have improvement of his symptoms, but over time they have startedto return and have worsened. Patient reports having nocturia q 2 hours, frequency, weak stream, split stream and ED. Patient denies any fever or chills, no N/V or abdominal pain, no CP, + SOB with exertion. Past Medical History: Diagnosis Date ??? Arthritis ??? Essential hypertension ??? Syncope and collapse Past Surgical History: Procedure Laterality Date ??? COLONOSCOPY WITH POLYPECTOMY ??? Fracture Repair Right right arm ORIF ??? PROSTATE BIOPSY, NEEDLE ??? Septoplasty ??? Tonsillectomy Bilateral (Not in a hospital admission) No Known Allergies Social History Tobacco Use ??? Smoking status: Every Day Packs/day: 1.00 Years: 18.00 Pack years: 18.00 Types: Cigarettes ??? Smokeless tobacco: Never Substance Use Topics ??? Alcohol use: Yes Alcohol/week: 14.0 standard drinks Types: 14 Glasses of wine per week Comment: couple glasses of wine a day Family History Problem Relation Name Age of Onset ??? Diabetes; unknown type Mother ??? Other - Cardiac Father ??? Cancer - Lung Sister ??? Other - Cardiac Brother ROS: Pertinent positive and negatives are mentioned above. All other systems reviewed were negative. Objective: Physical examination: No data found. General: well nourished, no acute distress, resting in bed HEENT: atraumatic, no jaundice, no scleral icterus Lungs: normal respiratory effort, no accessory muscle use, CTAB CV: regular rate, no murmur, 2+ pp, no BLE edema Abdomen: soft, nontender, nondistended Neuro: no gross focal deficits Psych: AOx3 Laboratory results: No results for input(s): WBC, HGB, HCT, PLT, PLTCOUNT, PLATELET in the last 07165 hours. No results for input(s): INR in the last 69466 hours. Recent Labs Component Name 07/03/22 1104 EGFR 59* No results for input(s): ALB, TBILI, ALT, AST, ALKPHOS in the last 34556 hours. Imaging: Relevant imaging studies were personally reviewed by myself and the IR attending. Pre-Sedation Evaluation: Level: Moderate with Versed and Fentanyl ASA: I. Normal, healthy patient Mallampati: I (soft palate, uvula, fauces, tonsillar pillars visible) Fasting status: Regular Meal > 8 hours Informed consent obtained? Yes Pre-procedure vitals reviewed? Yes History of prior adverse reaction to sedation or anesthesia? No Based on the above information, the patient is an appropriate candidate for the level of sedation planned. Assessment: 72 yo with benign prostate hypertrophy Plan: 1. Pertinent labs and relevant imaging studies were reviewed. 2. Informed consent was obtained from the patient after explaining the risks, benefits, and alternatives of the procedure. Risks include but are not limited to infection, bleeding, and injury to surrounding structures. Additional risks include: Pain, non-targeted embolization, temporary burning with urination, urinary frequency, catheter related urinary track infection, hematuria, hematospermia, blood in stool, rectal injury, bladder injury, injury to skin of penis and buttocks, and access sitehematoma 3. All questions were answered to the best of my ability. 4. Planned procedure: Image guided prostate artery embolization with related interventions. Associated attestation - Calvin Loving MD - 08/02/2022 1:41 PM CDT Images from the original note were not included. VASCULAR & INTERVENTIONAL RADIOLOGY H&P NOTE: I discussed this case with Roselyn Casanova APRN-SOLAR HOT WATER INSTALLER. I personally reviewed the HPI, imaging and labs. I agree with the findings, assessment and plan as documented. Calvin Loving MD, DABR Steel Analyst, [facility]. Vascular and Interventional Radiologist Minimally Invasive Specialist Endovascular interventions for Peripheral Arterial Disease ( PAD) / DVT/ Varicose veins and Pulmonary Embolism Endovascular interventions for Dialysis access Prostate Artery Embolization for BPH in men Uterine Fibroid Embolization for Uterine fibroids in Women For Outpatient/ inpatient appointments : For referrals to VIR: Ambulatory Referral to Interventional Radiology (REF41) [facility] Coordinator: [phone] [place] Inpatient consults: YARD ASSISTANT Filiom [address] [facility] Hospital Coordinators : [phone] [facility] Inpatient consults:[phone] For Hospital to Hospital VIR Transfers documented in this encounter OR Notes * Brief Op Note - Dariel Peralta - 08/02/2022 2:38 PM CDT Images from the original note were not included. VASCULAR & INTERVENTIONAL RADIOLOGY Brief Post-Procedure Note Patient: Cruz Prem Carreon Attending:Calvin Loving Canvas Shop Laborer: Dawit Yeh, R1 Dariel Johnsonlogankemar MS4 Diagnosis: Symptomatic BPH with LUTS Procedure: Unilateral Prostate artery embolization. Findings: Via right femoral artery access, Left prostatic artery was embolized to near stasis with 200 micron particles. The origin of the right internal iliac artery showed severe stenosis - multiple attempts to cannulate the artery were unsuccessful. Anesthesia: Local (1% Lidocaine) and Moderate sedation (3 mg Versed IV and 150 mcg Fentanyl IV) Additional medications given: None Estimated blood loss: Minimal Specimens: None Immediate complications: None Follow-up: Our coordinator will call the patient to schedule an IR clinic visit in 12 weeks. If patient improves clinically can consider re-attempt at right side embolization. Time out and final pre-procedure assessment completed immediately prior to start of procedure. Intra-procedure orders and medication record reviewed. Medications and doses administered by staff as verbally ordered. See detailed procedure note with images in PACS. Dariel Peralta MS4 For Outpatient/ inpatient appointments : For referrals to VIR: Ambulatory Referral to Interventional Radiology (REF41) [facility] Coordinator: [phone] [place] Inpatient consults: YARD ASSISTANT Thanh [address] [facility] Hospital Coordinators : [phone] [facility] Inpatient consults:[phone] For Hospital to Hospital VIR Transfers Associated attestation - Calvin Loving MD - 08/18/2022 12:28 PM CDT Images from the original note were not included. VASCULAR & INTERVENTIONAL RADIOLOGY FACULTY NOTE: I have verified the documentation of the medical student including all history, exam, and medical decision-making details. I have personally performed a physical exam and have personally reviewed thedata to support my medical decision-making as outlined in the medical student???s note, and I arrive independently at the same conclusion. Calvin Loving MD, DABR Steel Analyst, [facility]. Vascular and Interventional Radiologist Minimally Invasive Specialist Endovascular interventions for Peripheral Arterial Disease ( PAD) / DVT/ Varicose veins and Pulmonary Embolism Endovascular interventions for Dialysis access Prostate Artery Embolization for BPH in men Uterine Fibroid Embolization for Uterine fibroids in Women For Outpatient/ inpatient appointments : For referrals to VIR: Ambulatory Referral to Interventional Radiology (REF41) [facility] Coordinator: [phone] [place] Inpatient consults: YARD ASSISTANT Ascom [address] [facility] Hospital Coordinators : [phone] [facility] Inpatient consults:[phone] For Hospital to Hospital VIR Transfers * OR PreOp - John Le RN - 07/10/2022 12:23 PM CDT IR Coordinator spoke with Pt, pt agreed to 1330 on 08/02 with a check in time of 1200 for PAE. Pre-procedure instructions discussed, Pt verbalized understanding. documented in this encounter Plan of Treatment Upcoming Encounters Date Type Department Care Team (Late st Contact Info) Description 07/23/2024 11:00 AM CDT Appointment [facility] VASCULAR US [address] [place] [address] Herminia Howe MD [facility] [place] [phone] 07/23/2024 12:15 PM CDT Office Visit [facility] - Vascular Surgery [address] [facility], [place] [address] Herminia Howe MD [address] [place] [phone] documented as of this encounter Goals Goal Patient Goal Type Associated Problems Recent Progress Patient-Stated? Author Patient will adhere to medication regimen General On track( 023 8:59 AM CDT) Dari Gardner RN documented as of this encounter Procedures Procedure Name Priority Date/Time Associated Diagnosis Comments IR EMBOLIZATION TRANSCATH THPY Routine 08/02/2022 4:54 PM CDT Benign prostatic hyperplasia with urinary obstruction PT-INR [facility] STAT 08/02/2022 12:06 PM CDT Benign prostatic hyperplasia with urinary obstruction Chronic prostatitis Other specified disorders of kidney and ureter URINALYSIS REFLEX TO MICROSCOPIC NO CULTURE STAT 08/02/2022 12:06 PM CDT Benign prostatic hyperplasia with urinary obstruction Chronic prostatitis CBC W AUTO DIFFERENTIAL STAT 08/02/2022 12:06 PM CDT Benign prostatic hyperplasia with urinary obstruction Chronic prostatitis BASIC METABOLIC PANEL (CALCIUM TOTAL) STAT 08/02/2022 12:06 PM CDT Benign prostatic hyperplasia with urinary obstruction Chronic prostatitis documented in this encounter Results * IR EMBOLIZATION TRANSCATH THPY (08/02/2022 4:54 [...] artery embolization. He was seen byDr. Yip [id number] for BPH with bothersome symptoms despite tamsulosin [...] draped in the usual sterile fashion. A installers mechanical film of pelvis was obtained, which was [...] documented. ??Following a series of exchanges, a 5.5-Tajik vascular sheath was placed. The left internal [...] prostateartery embolization. He was seen byDr. Yip [id number] for BPH with bothersomesymptoms despite tamsulosin and [...] draped in the usual sterile fashion. A installers mechanical film of pelvis was obtained, which was [...] was documented. Following aseries of exchanges, a 5.5-Tajik vascular sheath was placed. The left internal [...] the procedure well [facility]. There were no [...] UA Ольга(A) Straw, Yellow 08/02/2022 12:36 PM CDT [facility] Clarity UA t Cloudy(A) Clear 08/02/2022 12:36 PM [facility] Specific [place] UA 1.011 1.005 - 1.030 08/02/2022 12:36 PM [facility] pH UA 5.0 5.0 - 8.0 pH 08/02/2022 12:36 PM [facility] Protein UA Negative Negative 08/02/2022 12:36 PM [facility] Glucose UA Negative Negative 08/02/2022 12:36 PM [facility] Ketone UA Negative Negative 08/02/2022 12:36 PM [facility] Bilirubin UA Negative Negative 08/02/2022 12:36 PM [facility] Blood UA Negative Negative 08/02/2022 12:36 PM [facility] Nitrite UA Positive(A) Negative 08/02/2022 12:36 PM [facility] Leukocyte Esterase 3+(A) Negative 08/02/2022 12:36 PM [facility] Urobilinogen UA 2.0(A) Negative mg/dL 08/02/2022 12:36 PM [facility] RBC UA 6-10(A) None Seen, 0-2, 3-5 /HPF 08/02/2022 12:36 PM [facility] WBC UA >100(A) None Seen, 0-5 /HPF 08/02/2022 12:36 PM [facility] Squamous Epithelial Cells UA None Seen None Seen, 0-2, 3-5 /HPF 08/02/2022 12:36 PM [facility] Mucus UA 1+ /LPF 08/02/2022 12:36 PM [facility] Hyaline Casts UA 3-5(A) None Seen, 0-2 /LPF 08/02/2022 12:36 PM [facility] Urine URINE SPECIMEN OBTAINED BY CLEAN CATCH PROCEDURE / Unknown Collection / Unknown 08/02/2022 12:06 PM CDT 08/02/2022 12:16 PM CDT [facility] - 08/02/2022 12:36 PM CDT Roselyn Casanova LEAD OXIDE [facility] - URINAL YSIS ORDERABLES [address] [address], [facility] [phone] * PT-INR [facility] (08/02/2022 12:06 PM CDT) PT 12.7 12.1 - 14.8 Seconds 08/02/2022 1:04 PM CDT [facility] INR 1.0 See Comment 08/02/2022 1:04 PM CDT [facility] Comment:The suggested therap eutic range for standard coumadin (warfarin) therapy is an INR of 2.0-3.0. For high-risk patients (Mechanical Mitral Valve Prosthesis, etc.), the suggested prophylactic therapeutic range is an INR of 2.5-3.5. Blood BLOOD SPECIMEN / Unknown Venipuncture / Unknown 08/02/2022 12:06 PM CDT 08/02/2022 12:20 PM CDT Roselyn Pace Edilberto [facility] - COAGUL ATION ORDERABLES [address] [address], [facility] [phone] * (ABNORMAL) CBC W AUTO DIFFERENTIAL (08/02/2022 12:06 PM CDT) WBC 8.0 3.5 - 10.5 10? 3 /uL 08/02/2022 12:25 PM CDT [facility] RBC 4.62 4.30 - 5.70 10? 6 /uL 08/02/2022 12:25 PM CDT [facility] Hemoglobin 15.2 12.0 - 17.6 g/dL 08/02/2022 12:25 PM CDT [facility] Hematocrit 43.7 35.2 - 51.7 % 08/02/2022 12:25 PM CDT [facility] MCV 94.6 80.7 - 98.3 fL 08/02/2022 12:25 PM CDT [facility] MCH 32.9 26.7 - 34.0 pg 08/02/2022 12:25 PM [facility] MCHC 34.8 30.8 - 35.9 g/dL 08/02/2022 12:25 PM [facility] RDW-SD 45.0 36.0 - 50.0 fL 08/02/2022 12:25 PM [facility] RDW-CV 12.9 11.2 - 14.8 % 08/02/2022 12:25 PM [facility] Platelet Count 202 150 - 400 10? 3 /uL 08/02/2022 12:25 PM [facility] MPV 10.7 9.4 - 12.9 fL 08/02/2022 12:25 PM [facility] nRBC Absolute 0.00 0 10? 3 /uL 08/02/2022 12:25 PM [facility] nRBC Auto 0.0 0 /100 WBC 08/02/2022 12:25 PM [facility] Neutrophils % 55.5 35.0 - 70.0 % 08/02/2022 12:25 PM [facility] Lymphocytes % 27.6 20.0 - 43.0 % 08/02/2022 12:25 PM [facility] Monocytes % 9.0 5.0 - 13.0 % 08/02/2022 12:25 PM [facility] Eosinophils % 6.6(H) 0.0 - 6.0 % 08/02/2022 12:25 PM [facility] Basophil % 0.7 0.0 - 2.0 % 08/02/2022 12:25 PM [facility] Neutrophils Absolute 4.45 1.60 - 7.00 10? 3 /uL 08/02/2022 12:25 PM [facility] Lymphocyte Absolute 2.21 1.10 - 3.90 10? 3 /uL 08/02/2022 12:25 PM [facility] Monocytes Absolute 0.72 0.26 - 1.07 10? 3 /uL 08/02/2022 12:25 PM [facility] Eosinophils Absolute 0.53(H) 0.00 - 0.47 10? 3 /uL 08/02/2022 12:25 PM [facility] Basophils Absolute 0.06 0.00 - 0.08 10? 3 /uL 08/02/2022 12:25 PM [facility] Immature Granulocytes % 0.6 0.0 - 1.0 % 08/02/2022 12:25 PM [facility] Immature Granulocytes Absolute 0.05 08/02/2022 12:25 PM [facility] Blood BLOOD SPECIMEN / Unknown Venipuncture / Unknown 08/02/2022 12:06 PM CDT 08/02/2022 12:20 PM CDT Roselyn Casanova LEAD OXIDE MILL TENDER-[employer] INSTALL[facility] LAB - HEMATO LOGY ORDERABLES [facility] [address] [place] [address], [facility] [phone] * (ABNORMAL) BASIC METABOLIC PANEL (CALCIUM TOTAL) (08/02/2022 12:06 PM T) BUN 18 7 - 26 mg/dL 08/02/2022 12:51 PM [facility] Creatinine 1.00 0.71 - 1.16 mg/dL 08/02/2022 12:51 PM [facility] Sodium 136 136 - 145 mmol/L 08/02/2022 12:51 PM [facility] Potassium 4.0 3.5 - 4.5 mmol/L 08/02/2022 12:51 PM [facility] Chloride 103 98 - 107 mmol/L 08/02/2022 12:51 PM [facility] CO2 25 22 - 29 mmol/L 08/02/2022 12:51 PM [facility] Glucose 90 70 - 115 mg/dL 08/02/2022 12:51 PM [facility] Calcium 9.6 8.4 - 10.2 mg/dL 08/02/2022 12:51 PM [facility] Anion Gap 12 8 - 18 08/02/2022 12:51 PM [facility] BUN/Creatinine Ratio 18 7 - 23 08/02/2022 12:51 PM [facility] Osmolality Calculated 283 270 - 300 mOsm/kg 08/02/2022 12:51 PM CDT [facility] eGFR by CKD-EPI 80(L) >=90 mL/min/1.7 3 m2 08/02/2022 12:51 PM CDT [facility] Blood BLOOD SPECIMEN / Unknown Venipuncture / Unknown 08/02/2022 12:06 PM CDT 08/02/2022 12:21 PM CDT Roselyn Casanova LEAD OXIDE MILL TENDER-SOLAR HOT WATER INSTALLER LAB - CHEMIS TRY ORDERABLES [facility] [address] [place] [address], [facility] [phone] documented in this encounter Visit Diagnoses Diagnosis Benign prostatic hyperplasia with urinary obstruction- Primary Chronic prostatitis Other specified disorders of kidney and ureter documented in this encounter Administered Medications Inactive Administered Medications - up to 3 most recent administrations Medication Order MAR Action Action Date Dose Rate Site 0.9% NaCl injection 1-10 mL 1-10 mL, Intracatheter, PRN, Other, peripheral line flush, Starting on Sun08/02/22 at 1145, Until Sun08/07/22 at 1111, Flush peripheral IV catheter with 1-10 mL of normal saline before and after medications and prn to clear blood from the line or to verify patency., Pre-procedure (IR) 0.9% NaCl injection 3 mL 3 mL, Intracatheter, EVERY 8 HOURS, First dose on Sun08/02/22 at 1400, Until Discontinued, Flush peripheral IV catheter with 3 mL of normal saline every 8 hours., Pre-procedure (IR) fentaNYL (PF) (Sublimaze) injection ONCE PRN, Starting on Sun08/02/22 at 1440, Until Sun08/02/22 at 1637 $ Given 08/02/2022 4:37 PM CDT 50 mcg $ Given 08/02/2022 4:09 PM CDT 25 mcg $ Given 08/02/2022 3:43 PM CDT 25 mcg heparinized saline 2 units/mL infusion Other, CONTINUOUS PRN, Starting on Sun08/02/22 at 1531, Until Sun08/02/22 at 1531 $ New Bag/Syringe 08/02/2022 3:31 PM CDT 1,500 mL iopamidol (Isovue 300) 61 % contrast ONCE PRN, Starting on Sun08/02/22 at 1637, Until Sun08/02/22 at 1637 $ Given 08/02/2022 4:37 PM CDT 130 mL lidocaine (Xylocaine) 1 % injection Subcutaneous, ONCE PRN, Starting on Sun08/02/22 at 1436, Until Sun08/02/22 at 1438 $ Given 08/02/2022 2:38 PM CDT 10 mL Right Groin midazolam (Versed) injection Intravenous, ONCE PRN, Starting on Sun08/02/22 at 1440, Until Sun08/02/22 at 1609 $ Given 08/02/2022 4:09 PM CDT 0.5 mg $ Given 08/02/2022 3:43 PM CDT 0.5 mg $ Given 08/02/2022 2:40 PM CDT 1 mg nitroGLYCERIN 100 mcg/ml injection ONCE PRN, Starting on Sun08/02/22 at 1517, Until Sun08/02/22 at 1524 $ Given 08/02/2022 3:24 PM CDT 200 mcg $ Given 08/02/2022 3:17 PM CDT 300 mcg documented in this encounter Active and Recently Administered Medications Times are shown in CDT. Scheduled Medication Order 07/31/2022 08/01/2022 08/02/2022 0.9% NaCl injection 3 mL(Linked Group 1) 3 mL, Intracatheter, EVERY 8 HOURS, First dose on Sun08/02/22 at 1400, Until Discontinued, Flush peripheral IV catheter with 3 mL of normal saline every 8 hours., Pre-procedure (IR) 1400 (Due) PRN Medication Order 07/31/2022 08/01/2022 08/02/2022 0.9% NaCl injection 1-10 mL(Linked Group 1) 1-10 mL, Intracatheter, PRN, Other, peripheral line flush, Starting on Sun08/02/22 at 1145, Until Sun08/07/22 at 1111, Flush peripheral IV catheter with 1-10 mL of normal saline before and after medications and prn to clear blood from the line or to verify patency., Pre-procedure (IR) fentaNYL (PF) (Sublimaze) injection (COMPLETED) ONCE PRN, Starting on Sun08/02/22 at 1440, Until Sun08/02/22 at 1637 1440 ($ Given - Prov ider: Lucinda Doss RN)1543 ($ Given - Provider: Lucinda Doss RN)1609 ($ Given - Provider: Lucinda Doss RN)1637 ($ Given - Provider: Lucinda Doss RN) heparinized saline 2 units/mL infusion (COMPLETED) Other, CONTINUOUS PRN, Starting on Sun08/02/22 at 1531, Until Sun08/02/22 at 1531 1531 ($ New Bag/Syri nge - Provider: Calvin Loving MD - Comment: to table) iopamidol (Isovue 300) 61 % contrast (COMPLETED) ONCE PRN, Starting on Sun08/02/22 at 1637, Until Sun08/02/22 at 1637 1637 ($ Given - Prov ider: Calvin Loving MD) lidocaine (Xylocaine) 1 % injection (COMPLETED) Subcutaneous, ONCE PRN, Starting on Sun08/02/22 at 1436, Until Sun08/02/22 at 1438 1438 ($ Given - Prov ider: Calvin Loving MD) midazolam (Versed) injection (COMPLETED) Intravenous, ONCE PRN, Starting on Sun08/02/22 at 1440, Until Sun08/02/22 at 1609 1440 ($ Given - Prov ider: Lucinda Doss RN)1543 ($ Given - Provider: Lucinda Doss RN)1609 ($ Given - Provider: Lucinda Doss RN) nitroGLYCERIN 100 mcg/ml injection (COMPLETED) ONCE PRN, Starting on Sun08/02/22 at 1517, Until Sun08/02/22 at 1524 1517 ($ Given - Prov ider: Calvin Loving MD)1524 ($ Given - Provider: Calvin Loving MD) Linked Groups Order Group 1: SALINE LOCK, INSERT AND MAINTAIN (CANCELED) Routine, CONTINUOUS, Starting on Sun08/02/22 at 1145, Until Specified, Pre- procedure (IR), New collection And 0.9% NaCl injection 3 mLJump to med 3 mL, Intracatheter, EVERY 8 HOURS, First dose on Sun08/02/22 at 1400, Until Discontinued, Flush peripheral IV catheter with 3 mL of normal saline every 8 hours., Pre-procedure (IR) And 0.9% NaCl injection 1-10 mLJump to med 1-10 mL, Intracatheter, PRN, Other, peripheral line flush, Starting on Sun08/02/22 at 1145, Until Sun08/07/22 at 1111, Flush peripheral IV catheter with 1-10 mL of normal saline before and after medications and prn to clear blood from the line or to verify patency., Pre-procedure (IR) documented in this encounter Care Teams Whiskey Proof Reader Relationship Specialty Start Date End Date Fabiano Mosley MD PCP - General 12/06/18 documented as of this encounter
--- OUTSIDE RECORDS SUMMARY | 2024-04-12 09:03 | XMS_ITS | Encounter Summary ---
Author Organization [facility] Address [address] [place] [address] Care Team Providers Care Optical Glass Inspector Name Role Phone Fabiano Mosley MD Primary Care Provider [phone] Encounter Details Date Type Department Care Team ([facility] Contact Info) Description 07/26/2022 Orders Only [facility] [address] [place] [id number] John Le, RN Social History Tobacco Use Types Packs/Day [...] Upcoming Encounters Date Type Department Care Team ([facility] Contact Info) Description 07/23/2024 11:00 AM CDT Appointment [facility] [address] [place] [phone] Herminia Howe MD [address] [facility] [address] [place] [address] 07/23/2024 12:15 PM CDT Office Visit [facility] - Vascular Surgery [address] [facility], [place] [address] Herminia Howe MD [facility] [facility] [address] [place] [address] documented as of this encounter Goals Goal Patient Goal Type Associated Problems Recent Progress Patient-Stated? Author Patient will adhere to medication regimen General On track( 023 8:59 AM CDT) Dari Gardner RN documented as of this encounter Visit Diagnoses Not on filedocumented in this encounter Care Teams Optical Glass Inspector Relationship Specialty Start Date End Date Fabiano Mosley MD PCP - General 12/06/18 documented as of this encounter
--- OUTSIDE RECORDS SUMMARY | 2024-04-12 09:04 | XMS_ITS | Clinical Summary ---
Author Organization [facility] [address] Address [address] [place] [address] Care Team Providers Care Distribution Manager Name Role Phone Yolie Solomon MD Primary Care Provider Social History Tobacco Use Types Packs/Day Years Used Date Smoking Tobacco: Never Assessed Personal Safety Answer Date Recorded Getting School Help Needed Not on file 05/31 Sex and Gender Information Value Date Recorded Sex Assigned at Not on file Legal Sex Male 1:47 AM SPIRAL MACHINE OPERATOR Gender Identity Not on file Sexual Orientation Not on file Last Filed Vital Signs Vital Sign Reading Time Taken Comments Blood Pressure 134/79 02/28/2018 2:49 AM SPIRAL MACHINE OPERATOR Pulse 86 02/28/2018 2:49 AM SPIRAL MACHINE OPERATOR Temperature 36.3 ??C (97.4 ??F) 02/28/2018 2:49 AM CS T Respiratory Rate - - Oxygen Saturation 98% 02/28/2018 2:49 AM SPIRAL MACHINE OPERATOR Inhaled Oxygen Concentration - - Weight 72.6 kg (160 lb) 02/28/2018 2:49 AM SPIRAL MACHINE OPERATOR Height 185.4 cm (6' 1 ) 02/28/2018 2:49 AM SPIRAL MACHINE OPERATOR Body Mass Index 21.11 02/28/2018 2:49 AM SPIRAL MACHINE OPERATOR Plan of Treatment Not on file Insurance MEDICARE [employer] Care Teams Distribution Manager Relationship Specialty Start Date End Date Yolie Solomon MD [address] [address] PCP - General Family Medicine 08/05/20
--- OUTSIDE RECORDS SUMMARY | 2024-04-12 09:04 | XMS_ITS | Referral Summary ---
Author Organization [facility] [address] Address [address] [place] [address] Care Team Providers Care Golf Manager Name Role Phone Yolie Solomon MD Primary Care Provider Social History Tobacco Use Types Packs/Day Years Used Date Smoking Tobacco: Never Assessed Personal Safety Answer Date Recorded Getting School Help Needed Not on file 05/31 Sex and Gender Information Value Date Recorded Sex Assigned at Not on file Legal Sex Male 1:47 AM HOMEBOUND TEACHER Gender Identity Not on file Sexual Orientation Not on file Last Filed Vital Signs Vital Sign Reading Time Taken Comments Blood Pressure 134/79 02/28/2018 2:49 AM HOMEBOUND TEACHER Pulse 86 02/28/2018 2:49 AM HOMEBOUND TEACHER Temperature 36.3 ??C (97.4 ??F) 02/28/2018 2:49 AM CS T Respiratory Rate - - Oxygen Saturation 98% 02/28/2018 2:49 AM HOMEBOUND TEACHER Inhaled Oxygen Concentration - - Weight 72.6 kg (160 lb) 02/28/2018 2:49 AM HOMEBOUND TEACHER Height 185.4 cm (6' 1 ) 02/28/2018 2:49 AM HOMEBOUND TEACHER Body Mass Index 21.11 02/28/2018 2:49 AM HOMEBOUND TEACHER Plan of Treatment Not on file Insurance MEDICARE [employer] Care Teams Golf Manager Relationship Specialty Start Date End Date Yolie Solomon MD [address] [address] PCP - General Family Medicine 08/05/20
--- OUTSIDE RECORDS SUMMARY | 2024-04-12 09:04 | XMS_ITS | Encounter Summary ---
Author Organization [facility] Address [address] [facility] [address] [place] [address] Care Team Providers Care Otolaryngologist Name Role Phone Yolie Solomon MD Primary Care Provider Reason for Visit * Cardiology (Routine) - Closed Specialty Diagnoses / Procedures Referred By Contverónica t Referred To Contact Diagnoses Syncope and collapse Procedures MCT Mobile Cardiac Telemetry Event Monitor Yolie Solomon MD [address] [facility] [address] [facility] [address] [place] [address] Phone: tel: fax: [facility] Referral ID Status Reason Start Date Expiration Date Visits Re quested Visits Authorized [id number] Closed 10/13/2020 11/12/2021 1 1 Encounter Details Date Type Department Care Team (Latest Contact Info) Description 10/19/2020 2:30 PM CDT Ancillary Procedure [facility] Medical [facility] Cardiology [address] [place] [address] Syncope and collapse Social History Tobacco Use Types Packs/Day Years Used Date Smoking Tobacco: Never Assessed Sex and Gender Information Value Date Recorded Sex Assigned at Not on file Legal Sex Male 1:47 AM LOCKSTITCH BINDER Gender Identity Not on file Sexual Orientation Not on file documented as of this encounter Procedure Notes * Dmitriy Chowdhury MD - 10/19/2020 12:00 AM CDT Ordering physician Dr. Yolie Solomon. Indication for the monitor Syncope and collapse. Type of monitor 30-day event monitor(patient was monitored for 3 days and 18 hours) Findings The patient was monitored for 3 days and 18 hours. Average heart rate was 77 beats per minute with a minimum heart rate 50 beats per minute and maximum heart rate 120 beats per minute. No atrial fibrillation, supraventricular tachycardia, ventricular tachycardia or significant heart pauses or blocks seen. Rare premature atrial contractions with a total burden 1%. No PVCs seen. The patient did notsubmit symptom diary. Conclusion Unremarkable event monitor without significant arrhythmias. Job ID/VF Job ID: [id number] documented in this encounter Plan of Treatment Pending Results Name Type Priority Associated Diagnoses Date /Time MCT Mobile Cardiac Telemetry Event Monitor Cardiac Services Routine Syncope and collapse 10/19/2020 2:59 PM CDT documented as of this encounter Visit Diagnoses Diagnosis Syncope and collapse documented in this encounter Care Teams Otolaryngologist Relationship Specialty Start Date End Date Yolie Solomon MD [address] [facility] [address] [place] [address] PCP - General Family Medicine 08/05/20 documented as of this encounter
--- OUTSIDE RECORDS SUMMARY | 2024-04-12 09:04 | XMS_ITS | Clinical Summary ---
Author Organization [facility] Address [address] [place] [address] Care Team Providers Care Senior Statistician Name Role Phone Unavailable Primary Care Provider Unavailabl e Social History Tobacco Use Types Packs/Day Years Used Date Smoking Tobacco: Never Assessed Sex and Gender Information Value Date Recorded Sex Assigned at Not on file Legal Sex Male 11:31 AM CDT Gender Identity Not on file Sexual Orientation Not on file Plan of Treatment Health Maintenance Due Date Last Done Comments Hepatitis C Virus (HCV) Screening 1950 TdaP Immunization 1950 Colonoscopy 1996 Colorectal Cancer Screening 1996 Cologuard 2001 Immunochemical Fecal Occult Blood 2001 Zoster Immunization (1 of 2) 2001 Pneumococcal Immunization (5 0+ years) (1 of 1 - PCV) 2016 SARS-COV-2 Immunization ( - 2022- season) 2022 Influenza Immunization (Seas on Ended) 2023 Hepatitis B Immunization Aged Out No longer eligible based on patient's age to complete this topic Meningococcal Immunization (ACWY) Aged Out No longer eligible based on patient's age to complete this topic Rotavirus Immunization Aged Out No lo nger eligible based on patient's age to complete this topic
--- OUTSIDE RECORDS SUMMARY | 2024-04-12 09:04 | XMS_ITS | Encounter Summary ---
Author Organization [facility] Address [address] [place] [address] Care Team Providers Care Welder Production Line Gas Name Role Phone Unavailable Primary Care Provider Unavailabl e Encounter Details Date Type Department Care Team (Late st Contact Info) Description 07/28/2020 11:45 AM CDT Rapid Evaluation [place] [facility] Community Testing [address] [address] Social History Tobacco Use Types Packs/Day Years [...]
--- OUTSIDE RECORDS SUMMARY | 2024-04-12 09:05 | XMS_ITS | Encounter Summary ---
Author Organization [facility] Address [address] [place] [address] Care Team Providers Care Tester Equipment Name Role Phone Unavailable Primary Care Provider Unavailabl e Encounter Details Date Type Department Care Team (Late st Contact Info) Description 02/28/2018 2:48 AM CANE FURNITURE MAKER - 02/28/2018 4:01 AM CANE FURNITURE MAKER Hospital Encounter [facility] Braden Be Retention of urine; Other advertising operations coordinator (current) drug therapy Social History Tobacco Use Types Packs/Day Years Used Date Smoking Tobacco: Never Assessed Sex and Gender Information Value Date Recorded Sex Assigned at Not on file Legal Sex Male 1:47 AM CANE FURNITURE MAKER Gender Identity Not on file Sexual Orientation Not on file documented as of this encounter Last Filed Vital Signs Vital Sign Reading Time Taken Comments Blood Pressure 134/79 02/28/2018 2:49 AM CANE FURNITURE MAKER Pulse 86 02/28/2018 2:49 AM CANE FURNITURE MAKER Temperature 36.3 ??C (97.4 ??F) 02/28/2018 2:49 AM CS T Respiratory Rate - - Oxygen Saturation 98% 02/28/2018 2:49 AM CANE FURNITURE MAKER Inhaled Oxygen Concentration - - Weight 72.6 kg (160 lb) 02/28/2018 2:49 AM CANE FURNITURE MAKER Height 185.4 cm (6' 1 ) 02/28/2018 2:49 AM CANE FURNITURE MAKER Body Mass Index 21.11 02/28/2018 2:49 AM CANE FURNITURE MAKER documented in this encounter Plan of Treatment Not on file documented as of this encounter Procedures Procedure Name Priority Date/Time Associated Diagnosis Comments URINALYSIS, MACRO AND MICRO Routine 02/28/2018 3:09 AM CANE FURNITURE MAKER documented in this encounter Results * (ABNORMAL) Urinalysis, macro and micro (02/28/2018 3:09 AM CANE FURNITURE MAKER) Ur Collection Type STRAIGHT CATH 02/28/2018 3:20 AM CANE FURNITURE MAKER [facility] HISTORICAL RESULTS Urine Color STRAW YELLOW 02/28/2018 3:20 AM CANE FURNITURE MAKER [facility] HISTORICAL RESULTS Urine Clarity CLEAR CLEAR Urine Glucose (UA) NORMAL NORMAL mg/dL 02/28/2018 3:20 AM CANE FURNITURE MAKER [facility] HISTORICAL RESULTS Urine Bilirubin NEGATIVE NEGATIVE mg/dl 02/28/2018 3:20 AM CANE FURNITURE MAKER [facility] HISTORICAL RESULTS Urine Ketones NEGATIVE NEGATIVE mg/dL Ur Specific [place] 1.003(L) 1.005 - 1.025 Urine Blood 0.2(H) NEGATIVE mg/dl Urine pH 8.0 5.0 - 8.0 Urine Protein NEGATIVE NEGATIVE mg/dL Urine Urobilinogen NORMAL NORMAL mg/dL Urine Nitrite NEGATIVE NEGATIVE Ur Leukocyte Esterase NEGATIVE NEGATIVE Lila/ul Ur Microscopic Review Indicated or Ordered Urine RBC 1 0 - 2 /HPF Urine WBC 1 0 - 2 /HPF 02/28/2018 3:09 AM CANE FURNITURE MAKER 02/28/2018 3:12 AM CANE FURNITURE MAKER Narrative [facility] HISTORICAL RESULTS - 02/28/2018 3:20 AM CANE FURNITURE MAKER us Cinthia Palomares PLATFORM INSPECTOR LAB URINE ORDERABLES Final Resu lt [facility] HISTORICAL RESULTS documented in this encounter Visit Diagnoses Diagnosis Retention of urine Unspecified retention of urine Other mcc (current) drug therapy documented in this encounter
--- OUTSIDE RECORDS SUMMARY | 2024-04-12 09:05 | XMS_ITS | Encounter Summary ---
Author Organization [facility] Address [address] [facility] [address] [place] [address] Care Team Providers Care Make Up Editor Name Role Phone Yolie Solomon MD Primary Care Provider Encounter Details Date Type Department Care Team (Late st Contact Info) Description 08/05/2020 Orders Only [facility] Cardiology [address] [facility] [address] [place] [address] Provider, MD Merly [address] [place] [address] Social History Tobacco Use Types Packs/Day Years Used Date Smoking Tobacco: Never Assessed Sex and Gender Information Value Date Recorded Sex Assigned at Not on file Legal Sex Male 1:47 AM COMPENSATION AND HRIS ANALYST Gender Identity Not on file Sexual Orientation Not on file documented as of this encounter Plan of Treatment Not on file documented as of this encounter Procedures Procedure Name Priority Date/Time Associated Diagnosis Comments CARDIOLOGY DOCUMENT SCAN Routine 08/05/2020 documented in this encounter Results * SCAN - CARDIOLOGY (08/05/2020) Anatomical Region Laterality Modality Other Historical Provider [facility] JAGJIT PELAEZ Final Result documented in this encounter Visit Diagnoses Not on filedocumented in this encounter Care Teams Make Up Editor Relationship Specialty Start Date End Date Yolie Solomon MD [address] [place] [address] PCP - General Family Medicine 08/05/20 documented as of this encounter
--- OUTSIDE RECORDS SUMMARY | 2024-04-12 09:05 | XMS_ITS | Encounter Summary ---
Author Organization [facility] Care Team Providers Care Coke Oven Mason Name Role Phone Unavailable Primary Care Provider Unavailabl e Encounter Details Date Type Department Care Team (Late st Contact Info) Description 12/31/2006 - 12/31/2006 11:59 PM CDT Hospital Encounter [facility] Deirdre Caraballo MD [address] [facility] [address] [place] [address] Social History Tobacco Use Types Packs/Day Years Used Date Smoking Tobacco: Never Assessed Sex and Gender Information Value Date Recorded Sex Assigned at Not on file Legal Sex Male 1:47 AM WASTEWATER ENGINEER Gender Identity Not on file Sexual Orientation Not on file documented as of this encounter Plan of Treatment Not on file documented as of this encounter Visit Diagnoses Not on filedocumented in this encounter
--- OUTSIDE RECORDS SUMMARY | 2024-04-12 09:05 | XMS_ITS | Encounter Summary ---
Author Organization [facility] Address [address] [facility] [address] [place] [address] Care Team Providers Care Stencil Cutter Name Role Phone Yolie Solomon MD Primary Care Provider Encounter Details Date Type Department Care Team (Late st Contact Info) Description 10/13/2020 Orders Only [facility] Cardiology [address] [facility] [address] [place] [address] Provider, MD Merly [address] [place] [address] Social History Tobacco Use Types Packs/Day Years Used Date Smoking Tobacco: Never Assessed Sex and Gender Information Value Date Recorded Sex Assigned at Not on file Legal Sex Male 1:47 AM SENIOR LINUX ENGINEER Gender Identity Not on file Sexual Orientation Not on file documented as of this encounter Plan of Treatment Not on file documented as of this encounter Procedures Procedure Name Priority Date/Time Associated Diagnosis Comments CARDIOLOGY DOCUMENT SCAN Routine 10/13/2020 documented in this encounter Results * SCAN - CARDIOLOGY (10/13/2020) Anatomical Region Laterality Modality Other Historical Provider [facility] JAGJIT PELAEZ Final Result documented in this encounter Visit Diagnoses Not on filedocumented in this encounter Care Teams Stencil Cutter Relationship Specialty Start Date End Date Yolie Solomon MD [address] [place] [address] PCP - General Family Medicine 08/05/20 documented as of this encounter
--- OUTSIDE RECORDS SUMMARY | 2024-04-12 09:05 | XMS_ITS | Encounter Summary ---
Author Organization [facility] Facility Care Team Providers Care Family Medicine Resident Name Role Phone Unavailable Primary Care Provider Unavailabl e Encounter Details Date Type Department Care Team (Late st Contact Info) Description 02/20/2007 - 02/20/2007 11:59 PM FIBER OPTIC CENTRAL OFFICE INSTALLER Hospital Encounter [facility] Deirdre Caraballo MD [address] [facility] [address] [place] [address] Social History Tobacco Use Types Packs/Day Years Used Date Smoking Tobacco: Never Assessed Sex and Gender Information Value Date Recorded Sex Assigned at Not on file Legal Sex Male 1:47 AM FIBER OPTIC CENTRAL OFFICE INSTALLER Gender Identity Not on file Sexual Orientation Not on file documented as of this encounter Plan of Treatment Not on file documented as of this encounter Visit Diagnoses Not on filedocumented in this encounter
== END 2024-04-05 08:32 | disposition home or self-care (01) ==
PROVIDERS: PCP Family Medicine; Visit Provider Psychiatry & Neurology Neurology
DX: I63.9 Cerebral infarction, unspecified (principal); I25.2 Old myocardial infarction; Z87.828 Personal history of other (healed) physical injury and trauma
CPT/HCPCS: 70551

== ENCOUNTER 2024-08-11 15:21 | Outpatient (CLI) | payer MEDICARE, SELFPAY ==
--- NOTE | ~2024-08-11 | XR_ITS ---
Lumbosacral Spine: AP and lateral views Clinical History: Pain Findings: The normal lordotic curve is maintained. The vertebral bodies and posterior elements are i ntact. The intervertebral disc spaces are preserved. There is moderate facet arthropathy throughout the lumbar spine. The sacroiliac joints are normally outlined. Impression: Moderate facet arthropathy in the lumbar spine. Reviewed, dictated and finalized at location . Impression: Moderate facet arthropathy in the lumbar spine.
[2024-08-11 16:41] LABS: Basophils Absolute Auto 0.1 K/mm3 (0.0-0.1); Eosinophils Absolute Auto 0.4 K/mm3 (0-0.3); Eosinophils Percent Auto 4.8 % (0-4.4); Hematocrit 39.1 % (42.0-52.0); Hemoglobin 13.1 g/dL (14.0-18.0); Immature Granulocyte Absolute 0.03 K/mm3 (0.00-0.031); Immature Granulocyte Percent A 0.4 % (0-0.5); Lymphocytes Absolute Auto 1.76 K/mm3 (0.9-3.2); Lymphocytes Percent Auto 24.3 % (18.3-44.2); Mean Corpuscular HGB Conc 33.5 g/dl (32-36); Mean Corpuscular Hemoglobin 32.6 pg (26-34); Mean Corpuscular Volume 97.3 fl (80-100); Mean Platelet Volume 11.1 fl (7.4-10.4); Monocytes Absolute Auto 0.6 K/mm3 (0.1-0.6); Monocytes Percent Auto 8.3 % (2.6-8.5); Neutrophils Absolute Auto 4.4 K/mm3 (1.3-6.7); Neutrophils Percent Auto 61.2 % (45.5-73.1); Platelet Count Result 221 k/mm3 (150-375); Red Blood Count 4.02 M/mm3 (4.6-6.20); Red Cell Distribution Width 13.8 % (11.5-14.5); White Blood Count 7.2 K/mm3 (4.5-10.0)
[2024-08-11 16:53] LABS: Alanine Aminotransferase 13 U/L (6-50); Albumin Level 4.2 g/dL (3.5-5.1); Alkaline Phosphatase 88 U/L (38-126); Anion Gap 6 mmol/L (4-12); Anion Gap 7 mmol/L (4-12); Aspartate Amino Transferase 18 U/L (17-59); Bilirubin,Total 0.7 mg/dL (0.2-1.3); Blood Urea Nitrogen 19 mg/dL (9-20); Calcium 9.2 mg/dL (8.4-10.2); Carbon Dioxide 26 mmol/L (22-30); Chloride 104 mmol/L (98-107); Estimated Glomerular Filt Rate 57; Glucose 98 mg/dL (65-110); Phosphorus 3.2 mg/dL (2.5-4.5); Potassium 4.5 mmol/L (3.4-5.0); Potassium 4.6 mmol/L (3.4-5.0); Sodium 136 mmol/L (137-145); Sodium 137 mmol/L (137-145)
[2024-08-11 17:00] LABS: Complement C3 90 mg/dL (88-165)
[2024-08-11 17:13] LABS: Creatinine Urine 44.9 mg/dL; Total Protein Urine Random 15 mg/dL; Ur Ttl Prot Creatinine Ratio 0.33 mg/mg (0-0.20)
[2024-08-11 17:18] LABS: Vitamin D 25 Hydroxy 38.9 ng/mL
[2024-08-11 17:22] LABS: Prostate Specific Antigen 8.6 ng/mL (< OR = 4.0)
--- OUTSIDE RECORDS SUMMARY | 2024-08-11 17:40 | XMS_ITS | Clinical Summary ---
Author Organization [facility] [address] [facility] [address] Address [address] [place] [address] Care Team Providers Care Hair Weaver Name Role Phone Yolie Solomon MD Primary Care Provider Social History Tobacco Use Types Packs/Day Years Used Date Smoking Tobacco: Never Assessed Personal Safety Answer Date Recorded Getting School Help Needed Not on file 05/31 Sex and Gender Information Value Date Recorded Sex Assigned at Not on file Legal Sex Male 1:47 AM PRODUCTION INTERNSHIP Gender Identity Not on file Sexual Orientation Not on file Last Filed Vital Signs Vital Sign Reading Time Taken Comments Blood Pressure 134/79 02/28/2018 2:49 AM PRODUCTION INTERNSHIP Pulse 86 02/28/2018 2:49 AM PRODUCTION INTERNSHIP Temperature 36.3 C (97.4 F) 02/28/2018 2:49 AM PRODUCTION INTERNSHIP Respiratory Rate - - Oxygen Saturation 98% 02/28/2018 2:49 AM PRODUCTION INTERNSHIP Inhaled Oxygen Concentration - - Weight 72.6 kg (160 lb) 02/28/2018 2:49 AM PRODUCTION INTERNSHIP Height 185.4 cm (6' 1 ) 02/28/2018 2:49 AM PRODUCTION INTERNSHIP Body Mass Index 21.11 02/28/2018 2:49 AM PRODUCTION INTERNSHIP Plan of Treatment Not on file Insurance MEDICARE [employer] Care Teams Hair Weaver Relationship Specialty Start Date End Date Yolie Solomon MD [address] [place] [address] PCP - General Family Medicine 08/05/20
--- OUTSIDE RECORDS SUMMARY | 2024-08-11 17:40 | XMS_ITS | Clinical Summary ---
Author Organization [facility] Address [address] [place] [address] Care Team Providers Care Harness Placer Name Role Phone Derrick Herrera MD Unavailable [phone] Zeina Baptiste DO Primary Care Provider Allergies No known active allergies Medications ALPRAZolam 1 MG tablet 02/05/2019 Active escitalopram (LEXAPRO) 20 MG tabletIndication s:Anxiety Take 1 tablet (20 mg total) by mouth daily. 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 Lung nodule, solitary 11/05/2017 Elevated [...] 73 01/16/2019 12:22 PM CDT Temperature 36.6 C (97.8 F) 11/29/2018 10:12 AM CDT Respiratory Rate 16 10/14/2018 1:01 PM CDT Oxygen Saturation 93% 01/16/2019 12:22 PM CDT Inhaled Oxygen Concentration - - Weight 70.3 kg (155 lb) 01/16/2019 12:22 PM CDT Height 185.4 cm (6' 1 ) 01/16/2019 12:22 PM CDT Body Mass Index 20.45 01/16/2019 12:22 PM CDT Plan of Treatment Health Maintenance Due Date Last Done Comments DTaP, Tdap and Td Vaccines ( 1 - Tdap) 1970 Pneumococcal Vaccine: 50+ Years (1 of 2 - PCV) 1970 Zoster Vaccines (1 of 2) 2001 Annual Medicare Wellness Visit 2016 COVID-19 Vaccine (2023-2 5 season) 2023 RSV Immunization or 60+ Years (1 - 1-dose 75+ series) 2026 Colorectal Cancer Screening Colonoscopy (10 Years) 02/01/2028 01/31/2018 Hepatitis C Completed 10/18/2017, 10/18/2017 Meningococcal B Vaccine Aged Out No l onger eligible based on patient's age to complete this topic Meningococcal Vaccine Aged Out No elena umer [...] (01/31/2018) us Documents Scanned SCANNING Final Result [facility] * HEPATITIS C ANTIBODY (10/18/2017 1:14 PM CDT) HEPATITIS C AB NON-REACTI VE NR [facility] TO EPIC CONVERSION 10/18/2017 1:14 PM CDT 10/18/2017 1:14 PM CDT Narrative [facility] TO EPIC CONVERSION - 10/19/2017 8:01 AM CDT Result Communication: No patient communication needed at this time us Fabiano Mosley MD LABORATORY Final Result [facility] TO EPIC CONVERSION from Last 3 Months or Most Recently Relevant to Health Maintenance Insurance [facility] INSURANCE MEDICARE MEDICARE [facility] INSURANCE Advance Directives Documents on File Type Date Recorded Patient Developer Advocate Expl anation Advance Directives and Living Will 01/04/2018 2:41 PM ADVANCE DIRECTIVE 10/11/17 Advance Directives and Living Will 10/11/2017 SADVANCE DIRECTIVES Care Teams Harness Placer Relationship Specialty Start Date End Date Zeina Baptiste DO [facility] [place], [place] [id number] PCP - General FAMILY PRACTICE 02/22/21 Derrick Herrera MD [facility] [address] [place], [place] [address] EP Silver Miner CARDIOVASCULAR DISEASE 12/11/18
--- OUTSIDE RECORDS SUMMARY | 2024-08-11 17:40 | XMS_ITS | Clinical Summary ---
Author Organization [facility] Address [address] [place] [address] Care Team Providers Care Horticultural Agent Name Role Phone Unavailable Primary Care Provider [...] Cologuard 2001 Immunochemical Fecal Occult Blood 2001 Pneumococcal Immunization (5 0+ years) (1 of 1 - PCV) 2001 Zoster Immunization (1 of 2) 2001 Influenza Immunization (#1) 2023 SARS-COV-2 Immunization ( - 2023-25 season) 2023 Respiratory Syncytial Virus (RSV) Immunization (Adult) (1 - 1-dose 75+ series) 2026 Hepatitis B Immunization Aged Out No longer eligible based on patient's age to complete this topic Meningococcal Immunization (ACWY) Aged Out No longer eligible based on patient's age to complete this topic Rotavirus Immunization Aged Out No lo nger eligible based on patient's age to complete this topic
--- OUTSIDE RECORDS SUMMARY | 2024-08-11 17:40 | XMS_ITS | Referral Summary ---
Author Organization [facility] [address] [facility] [address] Address [address] [place] [address] Care Team Providers Care Nonprofit Director Name Role Phone Yolie Solomon MD Primary Care Provider Social History Tobacco Use Types Packs/Day Years Used Date Smoking Tobacco: Never Assessed Personal Safety Answer Date Recorded Getting School Help Needed Not on file 05/31 Sex and Gender Information Value Date Recorded Sex Assigned at Not on file Legal Sex Male 1:47 AM SERVICE STATION ATTENDANT Gender Identity Not on file Sexual Orientation Not on file Last Filed Vital Signs Vital Sign Reading Time Taken Comments Blood Pressure 134/79 02/28/2018 2:49 AM SERVICE STATION ATTENDANT Pulse 86 02/28/2018 2:49 AM SERVICE STATION ATTENDANT Temperature 36.3 C (97.4 F) 02/28/2018 2:49 AM SERVICE STATION ATTENDANT Respiratory Rate - - Oxygen Saturation 98% 02/28/2018 2:49 AM SERVICE STATION ATTENDANT Inhaled Oxygen Concentration - - Weight 72.6 kg (160 lb) 02/28/2018 2:49 AM SERVICE STATION ATTENDANT Height 185.4 cm (6' 1 ) 02/28/2018 2:49 AM SERVICE STATION ATTENDANT Body Mass Index 21.11 02/28/2018 2:49 AM SERVICE STATION ATTENDANT Plan of Treatment Not on file Insurance MEDICARE [employer] INSURANCE [facility] Care Teams Nonprofit Director Relationship Specialty Start Date End Date Yolie Solomon MD [address] [place] [address] PCP - General Family Medicine 08/05/20
--- OUTSIDE RECORDS SUMMARY | 2024-08-11 17:40 | XMS_ITS | Clinical Summary ---
Author Organization [facility] [employer] Address [address] [place] [address] Care Team Providers Care International Relations Teacher Name Role Phone Fabiano Mosley MD Primary Care Provider [phone] Source Comments [facility] [employer],non-owned Affiliates and Associated Physician Practices is amultiple site organization consisting of ambulatory clinics and hospital sitesin [place], [place], [place]. This disclosure is being madepursuant to the Care Everywhere program and may not contain all information available regarding this patient. Last updated 18.[facility] [employer] Allergies No known active allergies Medications * Be aware that medications may not be up to date on this document. Alwaysverify current medications with the patient. SUMAtriptan (Imitrex) 50 MG tablet TAKE 1 TABLET BY MOUTH FOR HEADACHE IF NO RELIEF REPEAT 1 TAB AFTER AT LEAST 2 HOURS, MAX 4 TABLETS PER DAY 11/05/2023 Active atorvastatin (Lipitor) 40 MG tablet Take 1 (one) tablet by mouth once daily 10/31/2023 Active aspirin (Aspirin) 81 MG chew tablet Take 1 (one) tablet by mouth once daily Active aspirin-acetami nophen-caffeine 250-250-65 MG tablet Take 1 (one) tablet by mouth every 4 hours as needed for Headache Active ibuprofen (Motrin) 200 MG tablet Take 1 (one) tablet by mouth as needed for Pain Active multivitamin daily tablet Take 1 (one) tablet by mouth daily with food Active amLODIPine-mundo zepril (Lotrel) 5-20 MG capsule Take 1 (one) [...] Encounters Date Type Department Care Team Description 07/23/2024 12:15 PM CDT Office Visit [facility] - Vascular Surgery [address] [place] [id number] Herminia Howe MD Carotid stenosis, asymptomatic, left (Primary Dx) 07/23/2024 Travel from Last 3 Months Family History Medical [...] and heating? Not hard at all 11/26/2023 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 Gender Identity Not on file Sexual Orientation Not on file Travel History Travel Start Travel End [place] 07/14/2024 07/21/2024 Last Filed Vital Signs Vital Sign Reading Time Taken Comments Blood Pressure 128/86 07/23/2024 12:03 PM CDT Pulse 91 07/23/2024 12:03 PM CDT Temperature 36.7 C (98.1 F) 07/23/2024 12:03 PM CDT Respiratory Rate 14 11/27/2023 12:00 PM CDT Oxygen Saturation 98% 07/23/2024 12:03 PM CDT Inhaled Oxygen Concentration 21% 11/26/2023 1 2:00 PM CDT Weight 73.9 kg (163 lb) 07/23/2024 12:03 PM CDT Height 185.4 cm (6' 1 ) 07/23/2024 12:03 PM CDT Body Mass Index 21.51 07/23/2024 12:03 PM CDT Plan of Treatment Health Maintenance Due Date Last Done Comments COLOGUARD (AGES 45-75) - COL ON CA SCREENING 1950 COLON MONITORING 1951 COLONOSCOPY - COLON CA SCREENING 1951 CT COLONOGRAPHY - COLON CA SCREENING 1950 Colorectal Cancer Screening 1950 FIT - COLON CA SCREENING 1950 FLEX SIG - COLON CA SCREENING 1950 MEDICARE AWV 12 MONTHS 1951 DTAP/TDAP/TD VACCINES (1 - Tdap) 1970 PNEUMOCOCCAL VACCINE 50+ (1 of 2 - PCV) 1970 ZOSTER VACCINE (1 of 2) 2001 Respiratory Syncytial Virus (RSV) Vaccine Pt: or over 60 yrs (1 - Risk 60-74 years 1-dose series) 2011 COVID-19 VACCINE ( - 2023-2 5 season) 2023 DEPRESSION SCREENING 04/16/2024 INFLUENZA VACCINE (Season Ended) 2024 HEPATITIS C SCREENING Completed 10/18/2017 AAA SCREENING Completed 02/04/2024 HEPATITIS B VACCINE Aged Out No longe r eligible based on patient's age to complete this topic HIB VACCINE Aged Out No longer eligi ble based on patient's age to complete this topic HPV VACCINE Aged Out No longer eligi ble based on patient's age to complete this topic MENINGOCOCCAL (Group B) VACC INE SHARED DECISION-MAKING Aged Out No longer eligibl e based on patient's age to complete this topic MENINGOCOCCAL GROUPS A/C/Y/W VACCINE Aged Out No longer eligible b ased on patient's age to complete this topic Goals Goal Patient Goal Type Associated Problems Recent Progress Patient-Stated? Author Patient will adhere to medication regimen General On track( 023 8:59 AM CDT) No Dari Torres RN Medical Devices Implanted Type Area Plate Glass Grinder Device Identifier Shelf Expiration Date Model / Serial / Lot Sphr Embl Ylw Hydropearl 200um Ricky Pg Implanted:Qty: 1 on 08/02/2022 by Calvin Loving MD at [facility] [employer] Medical Alex 06/13/2025 [id number] / / [id number] Patch Cv 6x1cm Vsgrd Bvn Pricrd Strl Implanted:Qty: 1 on 11/26/2023 by Herminia Howe MD at [facility] Left: Carotid [employer] [id number] / / Procedures Procedure Name Priority Date/Time Associated Diagnosis Comments US AAA SCREENING Routine 02/04/2024 2:54 PM CDT Pulsatile abdomen from Last 3 Months or Most Recently Relevant to Health Maintenance Results * US AAA Screening (02/04/2024 2:54 PM CDT) Anatomical Region Laterality Modality Abdomen Ultrasound 02/04/2024 3:28 PM CDT Impressions 02/04/2024 6:06 PM CDT IMPRESSION: 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 > Dictated by Humza Chappell MD > Dictated by Humza Chappell MD (Hazardous Materials Analyst) 02/04/2024 3:28 PM IAgustin MD have personally reviewed and interpreted this examination/study. > Interpreting Provider: Agustin Noriega MD on 02/04/2024 6:06 PM Narrative 02/04/2024 6:06 PM CDT PROCEDURE: US AAA SCREENING, DATE/TIME OF EXAM: 02/04/2024 2:54 PM, LOCATION [facility] INDICATION: R19.8: Pulsatile abdomen ADDITIONAL CLINICAL INFORMATION: [...] DATE/TIME OF EXAM: 02/04/2024 2:54 PM, LOCATION [facility] INDICATION: R19.8: Pulsatile abdomen ADDITIONAL CLINICAL INFORMATION: [...] MD > Dictated by Humza Chappell MD (Hazardous Materials Analyst) 02/04/2024 3:28 PM IAgustin MD have personally reviewed and interpreted this examination/study. > Interpreting Provider: Agustin Noriega MD on 02/04/2024 6:06 PM Viola Browne PENAL OFFICER-BUILDING ENERGY CONSULTANT US ORDERABLES Final Result from Last 3 Months or Most Recently Relevant to Health Maintenance Insurance MEDICARE MEDICARE SUPPLEMENT PAYOR GENERIC Advance Directives * Full Code (Latest Code Status on File) Date Activated Date Inactivated Comments 11/26/2023 11:14 AM 11/27/2023 2:50 PM Care Teams International Relations Teacher Relationship Specialty Start Date End Date Fabiano Mosley MD PCP - General 12/06/18
[2024-08-13 01:48] LABS: Creatinine, Random Urine 48 mg/dL (20-320); Total Protein/Creatinine Ratio 250 mg/g creat (25-148)
[2024-08-13 13:44] LABS: Anti Glomerular Basement Memb <1.0 AI
[2024-08-14 03:28] LABS: ANCA Screen NEGATIVE (NEGATIVE)
[2024-08-15 11:17] LABS: Albumin 4.1; Alpha 1 Globulin 0.3; Alpha 2 Globulin 0.6; Protein, Total 6.5
[2024-08-15 11:18] LABS: Beta 1 Globulin 0.4; Gamma Globulin 0.9
== END 2024-08-11 15:22 | disposition home or self-care (01) ==
PROVIDERS: PCP Family Medicine; Referring Provider Family Medicine; Visit Provider Internal Medicine Nephrology
DX: N52.9 Male erectile dysfunction, unspecified (principal); Z79.899 Other long term (current) drug therapy; R97.20 Elevated prostate specific antigen [PSA]; I63.9 Cerebral infarction, unspecified; R55 Syncope and collapse; M54.50 Low back pain, unspecified; I12.9 Hypertensive chronic kidney disease with stage 1 through stage 4 chronic kidney disease, or unspecified chronic kidney disease; N18.32 Chronic kidney disease, stage 3b; I47.10 Supraventricular tachycardia, unspecified; Z12.5 Encounter for screening for malignant neoplasm of prostate
CPT/HCPCS: 36415; 72100; 80053; 80069; 82306; 82570; 82607; 83520; 83735; 84153; 84155; 84156; 84165; 84166; 85025; 86036; 86038; 86039; 86160; 86225; G0103

== ENCOUNTER 2024-11-01 21:13 | Emergency (ER) | payer MEDICARE, SELFPAY ==
[2024-11-01] VITALS (12 sets, daily range): BP systolic 145–169; BP diastolic 99–111; PULSE 63–85; RESP 12–21; TEMP 36.5; O2SAT 94–100
--- OUTSIDE RECORDS SUMMARY | 2024-11-01 21:15 | XMS_ITS | Clinical Summary ---
Author Organization [facility] Address [address] [place] [address] Care Team Providers Care Scheduling Analyst Name Role Phone Derrick Herrera MD Unavailable [phone] Zeina Baptiste DO Primary Care Provider [phone] Allergies No known active allergies Medications ALPRAZolam 1 MG tablet 02/05/2019 Active escitalopram (LEXAPRO) 20 MG tabletIndication s:Anxiety Take 1 tablet (20 mg total) by mouth daily. 30 tablet 1 09/07/2019 Active Active Problems Problem Noted Date Diagnosed Date Shortness of breath 12/12/2018 Heart palpitations 12/10/2018 Hypotension, unspecified hypotension type 2018 Chronic prostatitis 12/28/2017 Fibrosis, lung ([facility]) 11/27/2017 Lung nodule, solitary 11/05/2017 Elevated [...] 12:22 PM CDT Height 185.4 cm (6' 1) 01/16/2019 12:22 PM CDT Body Mass Index [...] Most Recently Relevant to Health Maintenance Insurance [facility] INSURANCE MEDICARE MEDICARE [facility] INSURANCE Advance Directives Documents on File Type Date Recorded Patient Search Engine Marketing Strategist Expl anation Advance Directives and Living Will 01/04/2018 2:41 PM ADVANCE DIRECTIVE 10/11/17 Advance Directives and Living Will 10/11/2017 SADVANCE DIRECTIVES Care Teams Scheduling Analyst Relationship Specialty Start Date End Date Zeina Baptiste DO [facility] [place], [place] [id number] PCP - General FAMILY PRACTICE 02/22/21 Derrick Herrera MD [facility] [address] [place], [place] [id number] EP Group Burner Machine CARDIOVASCULAR DISEASE 12/11/18
--- OUTSIDE RECORDS SUMMARY | 2024-11-01 21:15 | XMS_ITS | Clinical Summary ---
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 Gender Identity Not on file Sexual Orientation Not on file Last Filed Vital Signs Vital Sign Reading Time Taken Comments Blood Pressure 134/79 02/28/2018 2:49 AM ASSISTANT GROCERY STORE MANAGER Pulse 86 02/28/2018 2:49 AM ASSISTANT GROCERY STORE MANAGER Temperature 36.3 C (97.4 F) 02/28/2018 2:49 AM ASSISTANT GROCERY STORE MANAGER Respiratory Rate - - Oxygen Saturation 98% 02/28/2018 2:49 AM ASSISTANT GROCERY STORE MANAGER Inhaled Oxygen Concentration - - Weight 72.6 kg (160 lb) 02/28/2018 2:49 AM ASSISTANT GROCERY STORE MANAGER Height 185.4 cm (6' 1) 02/28/2018 2:49 AM ASSISTANT GROCERY STORE MANAGER Body Mass Index 21.11 02/28/2018 2:49 AM ASSISTANT GROCERY STORE MANAGER Plan of Treatment Not on file Insurance MEDICARE [employer] INSURANCE [employer] Care Teams Rougher Helper Relationship Specialty Start Date End Date Yolie Solomon MD [address] [place] [address] PCP - General Family Medicine 08/05/20
--- OUTSIDE RECORDS SUMMARY | 2024-11-01 21:15 | XMS_ITS | Clinical Summary ---
Author Organization [facility] Address [address] [place] [address] Care Team Providers Care Nut Sorter Operator Name Role Phone Unavailable Primary Care Provider [...]
--- OUTSIDE RECORDS SUMMARY | 2024-11-01 21:15 | XMS_ITS | Referral Summary ---
Author Organization [facility] [address] [facility] 162 Address [address] [place] [address] Care Team Providers Care Art Objects Supervisor Name Role Phone Yolie Solomon MD Primary Care Provider Social History Tobacco Use Types Packs/Day Years Used Date Smoking Tobacco: Never Assessed Personal Safety Answer Date Recorded Getting School Help Needed Not on file 05/31 Sex and Gender Information Value Date Recorded Sex Assigned at Not on file Legal Sex Male 1:47 AM MANAGER RN CASE Gender Identity Not on file Sexual Orientation Not on file Last Filed Vital Signs Vital Sign Reading Time Taken Comments Blood Pressure 134/79 02/28/2018 2:49 AM MANAGER RN CASE Pulse 86 02/28/2018 2:49 AM MANAGER RN CASE Temperature 36.3 C (97.4 F) 02/28/2018 2:49 AM MANAGER RN CASE Respiratory Rate - - Oxygen Saturation 98% 02/28/2018 2:49 AM MANAGER RN CASE Inhaled Oxygen Concentration - - Weight 72.6 kg (160 lb) 02/28/2018 2:49 AM MANAGER RN CASE Height 185.4 cm (6' 1) 02/28/2018 2:49 AM MANAGER RN CASE Body Mass Index 21.11 02/28/2018 2:49 AM MANAGER RN CASE Plan of Treatment Not on file Insurance MEDICARE [employer] INSURANCE [employer] Care Teams Art Objects Supervisor Relationship Specialty Start Date End Date Yolie Solomon MD [address] [place] [address] PCP - General Family Medicine 08/05/20
--- OUTSIDE RECORDS SUMMARY | 2024-11-01 21:15 | XMS_ITS | Clinical Summary ---
Author Organization [facility] Address [address] [place] [place] [address] Care Team Providers Care Cage Tender Name Role Phone Fabiano Mosley MD Primary Care Provider [phone] Source Comments [facility],non-owned Affiliates and Associated Physician Practices is amultiple site organization consisting of ambulatory clinics and hospital sitesin [place], [place], [place] and [place]. This disclosure is being madepursuant to the Care Everywhere program and may not contain all information available regarding this patient. Last updated 18.[facility] Allergies No known active allergies Medications * [...] Erectile dysfunction 10/11/2017 Fatigue 10/11/2017 Dysuria 10/11/2017 Family History Medical History Relation Name Comments [...] and heating? 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 Arterial [employer] Alex 06/13/2025 [id number] / / [id number] Patch Cv 6x1cm Vsgrd Bvn Pricrd Strl Implanted:Qty: 1 on 11/26/2023 by Herminia Howe MD at [facility] Left: Carotid Synovis [employer] [id number] / / Procedures Procedure Name Priority Date/Time [...] MD > Dictated by Humza Chappell MD (Manager Export) 02/04/2024 3:28 PM IAgustin MD have personally reviewed and interpreted this examination/study. > Interpreting Provider: Agustin Noriega MD on 02/04/2024 6:06 PM Narrative 02/04/2024 6:06 PM CDT PROCEDURE: US AAA SCREENING, DATE/TIME OF EXAM: 02/04/2024 2:54 PM, LOCATION [facility] INDICATION: R19.8: Pulsatile abdomen [...] DATE/TIME OF EXAM: 02/04/2024 2:54 PM, LOCATION [facility] INDICATION: R19.8: Pulsatile abdomen [...] MD > Dictated by Humza Chappell MD (Manager Export) 02/04/2024 3:28 PM IAgustin MD have personally reviewed and interpreted this examination/study. > Interpreting Provider: Agustin Noriega MD on 02/04/2024 6:06 PM us Viola Browne DIRECTOR OF HOUSING-PEARL PELLER US ORDERABLES Final Result from Last 3 Months or Most Recently Relevant to Health Maintenance Insurance MEDICARE MEDICARE SUPPLEMENT PAYOR GENERIC Advance Directives * Full Code (Latest Code Status on File) Date Activated Date Inactivated Comments 11/26/2023 11:14 AM 11/27/2023 2:50 PM Care Teams Cage Tender Relationship Specialty Start Date End Date Fabiano Mosley MD PCP - General 12/06/18
--- OUTSIDE RECORDS SUMMARY | 2024-11-01 21:39 | XMS_ITS | Clinical Summary ---
Author Organization [facility] Address [address] [place] [address] Care Team Providers Care Mask Former Name Role Phone Derrick Herrera MD Unavailable [phone] Zeina Baptiste DO Primary Care Provider [phone] Allergies No known active allergies Medications ALPRAZolam 1 MG tablet 02/05/2019 Active escitalopram (LEXAPRO) 20 MG tabletIndication s:Anxiety Take 1 tablet (20 mg total) by mouth daily. 30 tablet 1 09/07/2019 Active Active Problems Problem Noted Date Diagnosed Date Shortness of breath 12/12/2018 Heart palpitations 12/10/2018 Hypotension, unspecified hypotension type 2018 Chronic prostatitis 12/28/2017 Fibrosis, lung ([facility]) 11/27/2017 Lung nodule, solitary 11/05/2017 Elevated PSA [...] Most Recently Relevant to Health Maintenance Insurance [facility] INSURANCE MEDICARE MEDICARE [facility] INSURANCE Advance Directives Documents on File Type Date Recorded Patient Health Education Specialist Expl anation Advance Directives and Living Will 01/04/2018 2:41 PM ADVANCE DIRECTIVE 10/11/17 Advance Directives and Living Will 10/11/2017 SADVANCE DIRECTIVES Care Teams Mask Former Relationship Specialty Start Date End Date Zeina Baptiste DO [facility] [place], [place] [phone] PCP - General FAMILY PRACTICE 02/22/21 Derrick Herrera MD [facility] [address] [place], [place] [phone] EP Slide Fastener Chain Assembler CARDIOVASCULAR DISEASE 12/11/18
--- OUTSIDE RECORDS SUMMARY | 2024-11-01 21:39 | XMS_ITS | Clinical Summary ---
Author Organization [facility] Address [address] [place] [address] Care Team Providers Care Store Director Name Role Phone Unavailable Primary Care Provider [...]
--- OUTSIDE RECORDS SUMMARY | 2024-11-01 21:39 | XMS_ITS | Clinical Summary ---
Author Organization [facility] Address [address] [place] [address] Care Team Providers Care Laundry Helper Name Role Phone Fabiano Mosley MD Primary Care Provider [phone] Source Comments [facility],non-owned Affiliates and Associated Physician Practices is amultiple site organization consisting of ambulatory clinics and hospital sitesin [place], [place], [place] and [place]. This disclosure is being madepursuant to the Care Everywhere program and may not contain all information available regarding this patient. Last updated 18.[facility] Allergies No known active allergies Medications * [...] and heating? Not hard at all 11/26/2023 [facility] [place] of Occupat ional Health - Occupational Stress [...] place to sleep or slept in a fpc (including now)? 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 Gender Identity Not on file Sexual Orientation [...] Gardner RN Medical Devices Implanted Type Area Material Lister Device Identifier Shelf Expiration Date Model / Serial / Lot Sphr Embl Ylw Hydropearl 200um Ricky Pg Implanted:Qty: 1 on 08/02/2022 by Calvin Loving MD at [facility] Arterial [employer] Alex 06/13/2025 [id number] / / [id number] Patch Cv 6x1cm Vsgrd Bvn Pricrd Strl Implanted:Qty: 1 on 11/26/2023 by Herminia Howe MD at [facility] Left: Carotid [employer] [id number] / / Procedures Procedure Name Priority Date/Time [...] MD > Dictated by Humza Chappell MD (Airport Refueling Handler) 02/04/2024 3:28 PM IAgustin MD have personally reviewed and interpreted this examination/study. > Interpreting Provider: Agustin Noriega MD on 02/04/2024 6:06 PM Narrative 02/04/2024 6:06 PM CDT PROCEDURE: US AAA SCREENING, DATE/TIME OF EXAM: 02/04/2024 2:54 PM, LOCATION [facility] INDICATION: R19.8: Pulsatile abdomen ADDITIONAL CLINICAL INFORMATION: [...] DATE/TIME OF EXAM: 02/04/2024 2:54 PM, LOCATION [facility] INDICATION: R19.8: Pulsatile abdomen ADDITIONAL CLINICAL INFORMATION: [...] MD > Dictated by Humza Chappell MD (Airport Refueling Handler) 02/04/2024 3:28 PM IAgustin MD have personally reviewed and interpreted this examination/study. > Interpreting Provider: Agustin Noriega MD on 02/04/2024 6:06 PM us Viola Browne BUSINESS MANAGEMENT CONSULTANT-INSURANCE CLAIMS CLERK US ORDERABLES Final Result from Last 3 Months or Most Recently Relevant to Health Maintenance Insurance MEDICARE MEDICARE SUPPLEMENT PAYOR GENERIC Advance Directives * Full Code (Latest Code Status on File) Date Activated Date Inactivated Comments 11/26/2023 11:14 AM 11/27/2023 2:50 PM Care Teams Laundry Helper Relationship Specialty Start Date End Date Fabiano Mosley MD PCP - General 12/06/18
--- OUTSIDE RECORDS SUMMARY | 2024-11-01 21:39 | XMS_ITS | Referral Summary ---
Author Organization [facility] [address] [facility] [address] Address [address] [place] [address] Care Team Providers Care Hospitalist Physician Name Role Phone Yolie Solomon MD Primary Care Provider Social History Tobacco Use Types Packs/Day Years Used Date Smoking Tobacco: Never Assessed Personal Safety Answer Date Recorded Getting School Help Needed Not on file 05/31 Sex and Gender Information Value Date Recorded Sex Assigned at Not on file Legal Sex Male 1:47 AM NITROCELLULOSE MAKER Gender Identity Not on file Sexual Orientation Not on file Last Filed Vital Signs Vital Sign Reading Time Taken Comments Blood Pressure 134/79 02/28/2018 2:49 AM NITROCELLULOSE MAKER Pulse 86 02/28/2018 2:49 AM NITROCELLULOSE MAKER Temperature 36.3 C (97.4 F) 02/28/2018 2:49 AM NITROCELLULOSE MAKER Respiratory Rate - - Oxygen Saturation 98% 02/28/2018 2:49 AM NITROCELLULOSE MAKER Inhaled Oxygen Concentration - - Weight 72.6 kg (160 lb) 02/28/2018 2:49 AM NITROCELLULOSE MAKER Height 185.4 cm (6' 1) 02/28/2018 2:49 AM NITROCELLULOSE MAKER Body Mass Index 21.11 02/28/2018 2:49 AM NITROCELLULOSE MAKER Plan of Treatment Not on file Insurance MEDICARE [employer] INSURANCE [employer] Care Teams Hospitalist Physician Relationship Specialty Start Date End Date Yolie Solomon MD [address] [place] [address] PCP - General Family Medicine 08/05/20
--- OUTSIDE RECORDS SUMMARY | 2024-11-01 21:39 | XMS_ITS | Clinical Summary ---
Author Organization [facility] [address] [facility] [address] Address [address] [place] [address] Care Team Providers Care Care Clinician Name Role Phone Yolie Solomon MD Primary Care Provider Social History Tobacco Use Types Packs/Day Years Used Date Smoking Tobacco: Never Assessed Personal Safety Answer Date Recorded Getting School Help Needed Not on file 05/31 Sex and Gender Information Value Date Recorded Sex Assigned at Not on file Legal Sex Male 1:47 AM RUBBER TUBING SPLICER Gender Identity Not on file Sexual Orientation Not on file Last Filed Vital Signs Vital Sign Reading Time Taken Comments Blood Pressure 134/79 02/28/2018 2:49 AM RUBBER TUBING SPLICER Pulse 86 02/28/2018 2:49 AM RUBBER TUBING SPLICER Temperature 36.3 C (97.4 F) 02/28/2018 2:49 AM RUBBER TUBING SPLICER Respiratory Rate - - Oxygen Saturation 98% 02/28/2018 2:49 AM RUBBER TUBING SPLICER Inhaled Oxygen Concentration - - Weight 72.6 kg (160 lb) 02/28/2018 2:49 AM RUBBER TUBING SPLICER Height 185.4 cm (6' 1) 02/28/2018 2:49 AM RUBBER TUBING SPLICER Body Mass Index 21.11 02/28/2018 2:49 AM RUBBER TUBING SPLICER Plan of Treatment Not on file Insurance MEDICARE [employer] INSURANCE Appointuit Care Teams Care Clinician Relationship Specialty Start Date End Date Yolie Solomon MD [address] [place] [id number] PCP - General Family Medicine 08/05/20
[2024-11-01] MEDS: FAMOTIDINE 20 MG/2 ML VIAL IV PUSH (21:50)
[2024-11-01] MEDS: SODIUM CHLORIDE 0.9% IV 1,000 ML 999 ML IV CONT (21:50)
[2024-11-01 22:11] LABS: Hematocrit 40.8 % (42.0-52.0); Hemoglobin 13.8 g/dL (14.0-18.0); Immature Granulocyte Percent A 0.1 % (0-0.5); Lymphocytes Absolute Auto 1.97 K/mm3 (0.9-3.2); Mean Corpuscular HGB Conc 33.8 g/dl (32-36); Mean Corpuscular Hemoglobin 32.6 pg (26-34); Mean Corpuscular Volume 96.5 fl (80-100); Nucleated Red Blood Cells Absolute Auto 0.000 K/mm3 (0.0-0.012); Nucleated Red Blood Cells Perc 0.0 % (0.0-0.2); Platelet Count Result 210 k/mm3 (150-375); Red Blood Count 4.23 M/mm3 (4.6-6.20); White Blood Count 8.5 K/mm3 (4.5-10.0)
[2024-11-01 22:25] LABS: Alanine Aminotransferase 14 U/L (6-50); Albumin Level 4.3 g/dL (3.5-5.1); Alkaline Phosphatase 57 U/L (38-126); Anion Gap 7 mmol/L (4-12); Aspartate Amino Transferase 23 U/L (17-59); Bilirubin,Total 0.4 mg/dL (0.2-1.3); Blood Urea Nitrogen 28 mg/dL (9-20); Calcium 9.8 mg/dL (8.4-10.2); Carbon Dioxide 24 mmol/L (22-30); Chloride 101 mmol/L (98-107); Estimated CRCL calculation 37 ml/min; Estimated Glomerular Filt Rate 40; Glucose 110 mg/dL (65-110); Magnesium 1.9 mg/dL (1.6-2.3); Potassium 4.6 mmol/L (3.4-5.0); Sodium 132 mmol/L (137-145); Total Protein 7.2 g/dL (6.3-8.2)
--- NOTE | 2024-11-01 22:33 | ED_ITS ---
HPI - Allergic Reaction General Chief complaint: Allergic Reaction Stated complaint: lip swelling Time Seen by Provider: 11/01/24 21:29 History of Present Illness HPI narrative: 74-year-old male with history of CKD and hypertension on lisinopril. Patient presents to the emergency department with anterior lip swelling and numbness to his top right lip. This occurred about 1 month ago and resolved spontaneously after several days. It recurred today and he felt like he needed to come to the hospital. He has been taking his lisinopril without any change dosages recently in takes it once at night. Did not take anything tonight but took it yesterday. No diagnosed history of angioedema or history of hereditary angioedema in the family members. No chest pain, shortness a breath, difficulty swallowing and no phonation changes. No trauma or injury. He is otherwise comfortable in the room and not any acute distress. Symptoms started about 1 hour prior to arrival. States that the symptoms were more severe 1 month ago in his entire face and anterior lips, bottom lip swelled and became numb. Feels very similar to that episode but lesser degree of severity. He did not seek medical attention at that time and did not stop taking any medications. Related Data Home Medications ?Medication ?Instructions ?Recorded ?Confirmed ?Last Taken ?Type aspirin 81 mg tablet,delayed 81 mg PO DAILY 02/20/24 08/20/24 Unknown History release gabapentin 100 mg capsule 100 mg PO TID 07/02/24 08/20/24 Unknown History Allergies Allergy/AdvReac Type Severity Reaction Status Date / Time lisinopril AdvReac Severe Swelling Verified 11/02/24 02:28 of Lip/Tongue/Throat Review of Systems 2 Review of Systems: As reviewed above in HPI [facility] Past Medical History Medical History Insufficient sleep syndrome Headache Recurrent syncope Hypertension Benign prostatic hyperplasia Left-sided carotid artery disease Cerebrovascular accident (2022) Colon polyp Tobacco abuse Surgical History Surgical History History of open reduction and internal fixation (ORIF) procedure repair of right wrist fracture History of tonsillectomy History of left-sided carotid endarterectomy 10/2023 Family History Family History Father History of alcoholism Heart disease Cerebrovascular accident Mother Diabetes mellitus Depression Sibling Lung cancer Other Thyroid disorder Social History Social History Social History: Surrogate medical decision maker: Amelia Carreon, sister. Code status: Full code. Smoking packs per day: 0.5 Smoking cigarettes per day: 10.0 Years smoked: 10 Smoking pack-years: 5.00 Smoking status: Current every day smoker Tobacco type: cigarettes Second hand tobacco smoke exposure: Yes Alcohol intake: former Substance use: current Substance use type: marijuana Last use: Pt last usage was last night. 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 Spiritual care concerns: No Exam 2 Narrative: GENERAL: [Well-appearing, well-nourished, and in no acute distress.] HEAD: [Normocephalic, atraumatic.] EYES: [PERRLA and EOMI.] ENT: Angioedema of the anterior lip more so on the right side compared to the left, spares the bottom lip, no tongue swelling, no uvular swelling or edema, no posterior or pharyngeal swelling. No phonation changes or difficulty swallowing. No tenderness to palpation. States he feels is lips are numb and tingling such in the right-sided. NECK: Supple. CHEST: [Clear to auscultation. No respiratory distress.] HEART: [Regular rate and rhythm]. No murmur heard. [Normal peripheral pulses.] ABDOMEN: [Soft, nondistended], [nontender], [No rigidity or guarding] EXTREMITIES: Normal range of motion. [No edema.] SKIN: Warm, dry, no rash. NEURO: [No focal deficits]. Alert and oriented [x3.] PSYCH: [Normal mood and affect.] Course Vital Signs Vital signs: Vital Signs Temperature 36.5 C 11/01/24 21:16 Pulse Rate 85 11/01/24 21:16 Respiratory Rate 13 11/01/24 21:16 Blood Pressure 169/109 H 11/01/24 21:16 Pulse Oximetry 94 11/01/24 21:16 Temperature 36.9 C 11/02/24 02:23 Pulse Rate 76 11/02/24 02:23 Respiratory Rate 16 11/02/24 02:23 Blood Pressure 145/99 H 11/02/24 02:23 Pulse Oximetry 99 11/02/24 02:23 Oxygen Delivery Room Air 11/01/24 21:50 MDM - Allergic Reaction MDM Narrative Medical decision making narrative: 74-year-old male with history of CKD and hypertension on lisinopril. Patient presents to the emergency department with anterior lip swelling and numbness to his top right lip. This occurred about 1 month ago and resolved spontaneously after several days. It recurred today and he felt like he needed to come to the hospital. He has been taking his lisinopril without any change dosages recently in takes it once at night. Did not take anything tonight but took it yesterday. No diagnosed history of angioedema or history of hereditary angioedema in the family members. No chest pain, shortness a breath, difficulty swallowing and no phonation changes. No trauma or injury. He is otherwise comfortable in the room and not any acute distress. Symptoms started about 1 hour prior to arrival. States that the symptoms were more severe 1 month ago in his entire face and anterior lips, bottom lip swelled and became numb. Feels very similar to that episode but lesser degree of severity. He did not seek medical attention at that time and did not stop taking any medications. Examination reveals angioedema of the anterior lip more so on the right side compared to the left, spares the bottom lip, no tongue swelling, no uvular swelling or edema, no posterior or pharyngeal swelling. No phonation changes or difficulty swallowing. No tenderness to palpation. States he feels is lips are numb and tingling such in the right-sided. He is hemodynamically stable and saturating well on room air. 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 He was given IV Pepcid, diphenhydramine, Solu-Medrol and fluid bolus and basic laboratory studies were obtained. Patient placed on nuclear monitoring technician and pulse oximetry and will be observed for numerous hours for symptom improvement or resolution/progression. Patient observed for 4-1/2 hours here in the emergency department with no progression of symptoms and he had some interval improvement. We discussed symptoms to watch out for and return precautions and he felt comfortable going home at this time. We took away lisinopril or any derivatives from his formulary for blood pressure control and switch to 4 amlodipine. He will follow-up with regular doctor and lisinopril was added to his allergy list today. Patient safely discharged home at this time. Medical Records Attestation: I reviewed the patient's medical records. Lab Data Attestation: I reviewed the patient's lab results. 11/01/24 22:02 11/01/24 22:02 Labs: Lab Results 11/01/24 Range/Units 22:02 WBC 8.5 (4.5-10.0) K/mm3 RBC 4.23 L (4.6-6.20) M/mm3 Hgb 13.8 L (14.0-18.0) g/dL Hct 40.8 L (42.0-52.0) % MCV 96.5 (80-100) fl MCH 32.6 (26-34) pg MCHC 33.8 (32-36) g/dl RDW 13.0 (11.5-14.5) % Plt Count 210 (150-375) k/mm3 MPV 10.9 H (7.4-10.4) fl Immature Gran % (Auto) 0.1 (0-0.5) % Neut % (Auto) 64.3 (45.5-73.1) % Lymph % (Auto) 23.3 (18.3-44.2) % [place] % (Auto) 6.3 (2.6-8.5) % Eos % (Auto) 5.2 H (0-4.4) % Baso % (Auto) 0.8 (0.2-1.2) % Lymph # (Auto) 1.97 (0.9-3.2) K/mm3 [place] # (Auto) 0.5 (0.1-0.6) K/mm3 Eos # (Auto) 0.4 H (0-0.3) K/mm3 Baso # (Auto) 0.1 (0.0-0.1) K/mm3 Abs Immat Gran (auto) 0.01 (0.00-0.031) K/mm3 Absolute Neuts (auto) 5.5 (1.3-6.7) K/mm3 Absolute Nucleated RBC 0.000 (0.0-0.012) K/mm3 Nucleated RBC % 0.0 (0.0-0.2) % Sodium 132 L (137-145) mmol/L Potassium 4.6 (3.4-5.0) mmol/L Chloride 101 (98-107) mmol/L Carbon Dioxide 24 (22-30) mmol/L Anion Gap 7 (4-12) mmol/L BUN 28 H (9-20) mg/dL Creatinine 1.68 H (0.7-1.3) mg/dL Estim Creat Clear Calc 37 ml/min Estimated GFR 40 L (59 - ) Glucose 110 (65-110) mg/dL Calcium 9.8 (8.4-10.2) mg/dL Magnesium 1.9 (1.6-2.3) mg/dL Total Bilirubin 0.4 (0.2-1.3) mg/dL AST 23 (17-59) U/L ALT 14 (6-50) U/L Alkaline Phosphatase 57 (38-126) U/L Total Protein 7.2 (6.3-8.2) g/dL Albumin 4.3 (3.5-5.1) g/dL Discharge Plan Discharge Clinical Impression: Angioedema Patient Disposition: Home Condition: Stable Instructions: Antibiotic Form, Angioedema (ED) Additional Instructions: Your symptoms are referred to as angioedema and likely secondary to lisinopril or GINO-inhibitor exposure. This happens regardless of the duration or timeline of when you take this medication and is a common side effect. We will list this as an allergy in your chart and have you switched over to a different antihypertensive regimen. Follow-up with your doctor. Return if you start experiencing worsening symptoms such as profound swelling, difficulty swallowing, phonation changes, breathing discomfort, neck pain or any other emergencies. Patient Language: Turkmen Prescriptions: New amlodipine 10 mg tablet 10 mg PO DAILY Qty: 30 0RF No Action aspirin 81 mg tablet,delayed release (DR/EC) 81 mg PO DAILY sildenafil [Viagra] 50 mg tablet 50 mg PO DAILY PRN (Reason: sexual activity) Qty: 14 1RF Rx Instructions: administer 30 minutes to 4 hours before activity gabapentin 100 mg capsule 100 mg PO TID gabapentin 300 mg capsule 300 mg PO QHS Qty: 90 2RF Rx Instructions: may take 1 capsule at bedtime and increase up to 2 capsule if necessary amlodipine-benazepril 5-20 mg capsule 1 cap PO DAILY Qty: 30 0RF atorvastatin 80 mg tablet 80 mg PO DAILY Qty: 90 2RF Follow-up/Referrals: Theodore Sosa MD [Physician] - 1 Day (Angioedema) Fabiano Mosley MD [Primary Care Provider] - Time of Disposition: 02:08
--- NOTE | 2024-11-01 23:42 | PC.NURSE ---
This RN noticed pt IV was ripped out. Pt states he had to use the restroom so he just took it out. Blood noticed on gown and floor. Blood was cleaned, and dressing was placed on pt arm.
[2024-11-02] VITALS: PULSE 67; RESP 20; O2SAT 100
[2024-11-02 00:30] VITALS: PULSE 64; RESP 14; O2SAT 100
[2024-11-02 00:45] VITALS: PULSE 71; RESP 20; O2SAT 100
[2024-11-02 02:23] VITALS: BP 145/99; PULSE 76; RESP 16; TEMP 36.9; O2SAT 99
== END 2024-11-02 02:18 | disposition home or self-care (01) ==
PROVIDERS: Emergency Provider Student in an Organized Health Care Education/Training Program; PCP Family Medicine
DX: T78.3XXA Angioneurotic edema, initial encounter (principal); T46.4X5A Adverse effect of angiotensin-converting-enzyme inhibitors, initial encounter; I12.9 Hypertensive chronic kidney disease with stage 1 through stage 4 chronic kidney disease, or unspecified chronic kidney disease; N18.9 Chronic kidney disease, unspecified; I25.10 Atherosclerotic heart disease of native coronary artery without angina pectoris; N40.0 Benign prostatic hyperplasia without lower urinary tract symptoms; Z86.0100 Personal history of colon polyps, unspecified; Z86.73 Personal history of transient ischemic attack (TIA), and cerebral infarction without residual deficits; F17.210 Nicotine dependence, cigarettes, uncomplicated; Z79.82 Long term (current) use of aspirin; Z79.899 Other long term (current) drug therapy
CPT/HCPCS: 36415; 80053; 83735; 85025; 96361; 96374; 96375; 99284; J1200; J2919; J7030

== ENCOUNTER 2024-12-19 14:32 | Outpatient (CLI) | payer MEDICARE, SELFPAY ==
--- OUTSIDE RECORDS SUMMARY | 2024-12-19 14:35 | XMS_ITS | Clinical Summary ---
Author Organization [facility] Address [address] [place] [address] Care Team Providers Care Tonnage Compilation Clerk Name Role Phone Fabiano Mosley MD Primary Care Provider [phone] Source Comments [facility],non-owned Affiliates and Associated Physician Practices is amultiple site organization consisting of ambulatory clinics and hospital sitesin [place], [place], [place] and [place]. This disclosure is being madepursuant to the Care Everywhere program and may not contain all information available regarding this patient. Last updated 18.[facility] Allergies No known active allergies Medications * [...] and heating? Not hard at all 11/26/2023 [facility] [place] of Occupat ional Health - Occupational Stress [...] to sleep or slept in a senior care (including now)? 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 Gender Identity Not on file Sexual Orientation [...] Gardner RN Medical Devices Implanted Type Area Transformation Analyst Device Identifier Shelf Expiration Date Model / Serial / Lot Sphr Embl Ylw Hydropearl 200um Ricky Pg Implanted:Qty: 1 on 08/02/2022 by Calvin Loving MD at [facility] Arterial [employer] Alex 06/13/2025 [id number] / / [id number] Patch Cv 6x1cm Vsgrd Bvn Pricrd Strl Implanted:Qty: 1 on 11/26/2023 by Herminia Howe MD at [facility] Left: Carotid [employer] [id number] / / Procedures Procedure Name Priority Date/Time [...] MD > Dictated by Humza Chappell MD (Banquet Chef) 02/04/2024 3:28 PM IAgustin MD have personally reviewed and interpreted this examination/study. > Interpreting Provider: Agustin Noriega MD on 02/04/2024 6:06 PM Narrative 02/04/2024 6:06 PM CDT PROCEDURE: US AAA SCREENING, DATE/TIME OF EXAM: 02/04/2024 2:54 PM, LOCATION [facility] INDICATION: R19.8: Pulsatile abdomen ADDITIONAL [...] DATE/TIME OF EXAM: 02/04/2024 2:54 PM, LOCATION [facility] INDICATION: R19.8: Pulsatile abdomen ADDITIONAL [...] MD > Dictated by Humza Chappell MD (Banquet Chef) 02/04/2024 3:28 PM IAgustin MD have personally reviewed and interpreted this examination/study. > Interpreting Provider: Agustin Noriega MD on 02/04/2024 6:06 PM us Viola Browne EMERGENCY VEHICLE OPERATIONS INSTRUCTOR-MARKETING/SALES PERSON US ORDERABLES Final Result from Last 3 Months or Most Recently Relevant to Health Maintenance Insurance MEDICARE MEDICARE SUPPLEMENT [employer] GENERIC Advance Directives * Full Code (Latest Code Status on File) Date Activated Date Inactivated Comments 11/26/2023 11:14 AM 11/27/2023 2:50 PM Care Teams Tonnage Compilation Clerk Relationship Specialty Start Date End Date Fabiano Mosley MD PCP - General 12/06/18
--- OUTSIDE RECORDS SUMMARY | 2024-12-19 14:35 | XMS_ITS | Clinical Summary ---
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 Gender Identity Not on file Sexual Orientation Not on file Last Filed Vital Signs Vital Sign Reading Time Taken Comments Blood Pressure 134/79 02/28/2018 2:49 AM MATERIAL PLANNER Pulse 86 02/28/2018 2:49 AM MATERIAL PLANNER Temperature 36.3 C (97.4 F) 02/28/2018 2:49 AM MATERIAL PLANNER Respiratory Rate - - Oxygen Saturation 98% 02/28/2018 2:49 AM MATERIAL PLANNER Inhaled Oxygen Concentration - - Weight 72.6 kg (160 lb) 02/28/2018 2:49 AM MATERIAL PLANNER Height 185.4 cm (6' 1) 02/28/2018 2:49 AM MATERIAL PLANNER Body Mass Index 21.11 02/28/2018 2:49 AM MATERIAL PLANNER Plan of Treatment Not on file Insurance MEDICARE [employer] INSURANCE [employer] Care Teams Record Changer Relationship Specialty Start Date End Date Yolie Solomon MD [address] [place] [address] PCP - General Family Medicine 08/05/20
--- OUTSIDE RECORDS SUMMARY | 2024-12-19 14:35 | XMS_ITS | Clinical Summary ---
Author Organization [facility] Address [address] [place] [address] Care Team Providers Care Waiter/Waitress Counter Name Role Phone Unavailable Primary Care Provider [...] Virus (HCV) Screening 1950 TdaP Immunization 1950 Cologuard 1996 Colonoscopy 1996 Colorectal Cancer Screening 1996 Immunochemical Fecal Occult Blood 1996 Pneumococcal Immunization (5 0+ years) (1 of 1 - PCV) 2001 Zoster Immunization (1 of 2) 2001 SARS-COV-2 Immunization (1 - 2023- season) 2023 Influenza Immunization (#1) 2024 Respiratory Syncytial Virus (RSV) Immunization (Adult) (1 - 1-dose 75+ series) 2026 Hepatitis B Immunization Aged Out No longer eligible based on patient's age to complete this topic Human Papillomavirus (HPV) Immunization Aged Out No longer eligible b ased on patient's age to complete this topic Meningococcal Immunization (ACWY) Aged Out No longer eligible based on patient's age to complete this topic Rotavirus Immunization Aged Out No lo nger eligible based on patient's age to complete this topic
[2024-12-19 15:13] LABS: Albumin Level 4.4 g/dL (3.5-5.1); Anion Gap 6 mmol/L (4-12); Blood Urea Nitrogen 19 mg/dL (9-20); Calcium 9.5 mg/dL (8.4-10.2); Carbon Dioxide 27 mmol/L (22-30); Chloride 103 mmol/L (98-107); Estimated Glomerular Filt Rate 53; Glucose 108 mg/dL (65-110); Potassium 4.0 mmol/L (3.4-5.0); Sodium 136 mmol/L (137-145)
[2024-12-19 15:13] LABS: Total Protein Urine Random 22 mg/dL; Ur Ttl Prot Creatinine Ratio 0.21 mg/mg (0-0.20)
[2024-12-19 15:24] LABS: Parathyroid Intact 18.9 pg/mL (14.5-75.2)
== END 2024-12-19 14:33 | disposition home or self-care (01) ==
PROVIDERS: PCP Family Medicine; Visit Provider Internal Medicine Nephrology
DX: I12.9 Hypertensive chronic kidney disease with stage 1 through stage 4 chronic kidney disease, or unspecified chronic kidney disease (principal); N18.32 Chronic kidney disease, stage 3b
CPT/HCPCS: 36415; 80069; 82306; 82570; 83970; 84156

== ENCOUNTER 2025-02-27 03:45 | Emergency (ER) | payer MEDICARE, SELFPAY ==
--- OUTSIDE RECORDS SUMMARY | 2025-02-27 03:47 | XMS_ITS | Clinical Summary ---
Author Organization [facility] Address [facility] [place] [address] Care Team Providers Care Resident Associate Name Role Phone Derrick Herrera MD Unavailable [phone] Zeina Baptiste DO Primary Care Provider [phone] Allergies No known active allergies Medications ALPRAZolam 1 MG tablet 02/05/2019 Active escitalopram (LEXAPRO) 20 MG tabletIndication s:Anxiety Take 1 tablet (20 mg total) by mouth daily. 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 Lung [...] Wellness Visit 2016 COVID-19 Vaccine ( - 2024-2 6 season) 2024 Influenza Adult (#1) 2025 RSV Immunization or 60+ Years (1 - 1-dose 75+ series) 2026 Colorectal Cancer Screening Colonoscopy (10 Years) 02/01/2028 01/31/2018 Hepatitis C Completed 10/18/2017, 10/18/2017 Hepatitis A Vaccines Aged Out No long er eligible based on patient's age to complete this topic Meningococcal B Vaccine Aged Out No l [...] Most Recently Relevant to Health Maintenance Insurance INSURANCE MEDICARE MEDICARE INSURANCE Advance Directives Documents on File Type Date Recorded Patient Computer Instructor Expl anation Advance Directives and Living Will 01/04/2018 2:41 PM ADVANCE DIRECTIVE 10/11/17 Advance Directives and Living Will 10/11/2017 SADVANCE DIRECTIVES Care Teams Resident Associate Relationship Specialty Start Date End Date eZina Baptiste DO [address] [place] [id number] PCP - General FAMILY PRACTICE 02/22/21 Derrick Herrera MD [id number] [place] [address] EP Partnership Development Manager CARDIOVASCULAR DISEASE 12/11/18
--- OUTSIDE RECORDS SUMMARY | 2025-02-27 03:47 | XMS_ITS | Clinical Summary ---
Author Organization [facility] Address [address] [place] [address] Care Team Providers Care Church History Teacher Name Role Phone Unavailable Primary Care Provider [...] (1 of 2) 2001 Influenza Immunization (#1) 2024 SARS-COV-2 Immunization ( - season) 2024 Respiratory Syncytial Virus (RSV) Immunization (Adult) [...]
--- OUTSIDE RECORDS SUMMARY | 2025-02-27 03:47 | XMS_ITS | Clinical Summary ---
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 Gender Identity Not on file Sexual Orientation Not on file Last Filed Vital Signs Vital Sign Reading Time Taken Comments Blood Pressure 134/79 02/28/2018 2:49 AM ACCOUNTS RECEIVABLE MANAGER Pulse 86 02/28/2018 2:49 AM ACCOUNTS RECEIVABLE MANAGER Temperature 36.3 C (97.4 F) 02/28/2018 2:49 AM ACCOUNTS RECEIVABLE MANAGER Respiratory Rate - - Oxygen Saturation 98% 02/28/2018 2:49 AM ACCOUNTS RECEIVABLE MANAGER Inhaled Oxygen Concentration - - Weight 72.6 kg (160 lb) 02/28/2018 2:49 AM ACCOUNTS RECEIVABLE MANAGER Height 185.4 cm (6' 1) 02/28/2018 2:49 AM ACCOUNTS RECEIVABLE MANAGER Body Mass Index 21.11 02/28/2018 2:49 AM ACCOUNTS RECEIVABLE MANAGER Plan of Treatment Not on file Insurance MEDICARE [employer]UR[employer] Care Teams Gi Technician Relationship Specialty Start Date End Date Yolie Solomon MD [address] [place] [id number] PCP - General Family Medicine 08/05/20
--- OUTSIDE RECORDS SUMMARY | 2025-02-27 03:47 | XMS_ITS | Clinical Summary ---
Author Organization [facility] [employer] Address [address] [place] [address] Care Team Providers Care Division Manager Name Role Phone Fabiano Mosley MD Primary Care Provider [phone] Source Comments [facility] [employer],non-owned Affiliates and Associated Physician Practices is amultiple site organization consisting of ambulatory clinics and hospital sitesin [place], [place], [place] and [place]. This disclosure is being madepursuant to the Care Everywhere program and may not contain all information available regarding this patient. Last updated 18.[facility] [employer] Allergies No known active allergies Medications * [...] and heating? Not hard at all 11/26/2023 [facility] [place] of Occupat ional Health - Occupational Stress [...] place to sleep or slept in a snf (including now)? 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 Gender Identity Not on file Sexual Orientation [...] SCREENING 1950 MEDICARE AWV 12 MONTHS 1950 HEPATITIS C SCREENING 05/23/1969 DTAP/TDAP/TD VACCINES (1 - Tdap) 1970 PNEUMOCOCCAL VACCINE 50+ (1 of 2 - PCV) 1970 ZOSTER VACCINE (1 of 2) 2001 Respiratory Syncytial Virus (RSV) Vaccine Pt: or over 60 yrs (1 - Risk 60-74 years 1-dose series) 2011 DEPRESSION SCREENING 04/16/2024 COVID-19 VACCINE (1 - 2023-2 5 season) 2024 INFLUENZA VACCINE (#1) 2024 AAA SCREENING Completed 02/04/2024 HEPATITIS B VACCINE [...] Gardner RN Medical Devices Implanted Type Area Oil Program Compliance Specialist Device Identifier Shelf Expiration Date Model / Serial / Lot Sphr Embl Ylw Hydropearl 200um Ricky Pg Implanted:Qty: 1 on 08/02/2022 by Calvin Loving MD at [facility] Arterial [employer] Alex 06/13/2025 [id number] / / [id number] Patch Cv 6x1cm Vsgrd Bvn Pricrd Strl Implanted:Qty: 1 on 11/26/2023 by Herminia Howe MD at [facility] Left: Carotid [employer] [id number] / / Procedures Procedure Name Priority Date/Time [...] MD > Dictated by Humza Chappell MD (Worm Grower) 02/04/2024 3:28 PM IAgustin MD have personally reviewed and interpreted this examination/study. > Interpreting Provider: Agustin Noriega MD on 02/04/2024 6:06 PM Narrative 02/04/2024 6:06 PM CDT PROCEDURE: US AAA SCREENING, DATE/TIME OF EXAM: 02/04/2024 2:54 PM, LOCATION [facility] INDICATION: R19.8: Pulsatile abdomen ADDITIONAL CLINICAL [...] DATE/TIME OF EXAM: 02/04/2024 2:54 PM, LOCATION [facility] INDICATION: R19.8: Pulsatile abdomen ADDITIONAL CLINICAL [...] MD > Dictated by Humza Chappell MD (Worm Grower) 02/04/2024 3:28 PM IAgustin MD have personally reviewed and interpreted this examination/study. > Interpreting Provider: Agustin Noriega MD on 02/04/2024 6:06 PM us Viola Browne CREDENTIALING ANALYST-AUTOMOTIVE BRAKE TECHNICIAN US ORDERABLES Final Result from Last 3 Months or Most Recently Relevant to Health Maintenance Insurance MEDICARE MEDICARE SUPPLEMENT PAYOR GENERIC Advance Directives * Full Code (Latest Code Status on File) Date Activated Date Inactivated Comments 11/26/2023 11:14 AM 11/27/2023 2:50 PM Care Teams Division Manager Relationship Specialty Start Date End Date Fabiano Mosley MD PCP - General 12/06/18
[2025-02-27 03:48] VITALS: BP 199/124; PULSE 91; RESP 20; TEMP 36.4; O2SAT 99
--- NOTE | 2025-02-27 03:55 | ECG_ITS ---
Test Date: 2025-02-27 03:57:33 Measurements Intervals [place] Rate: 84 P: 84 NC: 169 QRS: 96 QRSD: 129 T: 62 QT: 414 QTc: 491 Interpretive Statements SINUS RHYTHM RIGHT BUNDLE BRANCH BLOCK [120+ ms QRS DURATION, UPRIGHT V1, 40+ ms S IN I/aVL/V4/V5/V6] ABNORMAL ECG NO SIGNIFICANT CHANGE Electronically Signed On 02-27-2025 13:16:48 MONOGRAM AND LETTER PASTER by Derrick Gaitan M.D.
--- OUTSIDE RECORDS SUMMARY | 2025-02-27 06:28 | XMS_ITS | Clinical Summary ---
Author Organization [facility] Address [address] [place] [id number] Care Team Providers Care Editor Department Name Role Phone Unavailable Primary Care Provider [...]
--- OUTSIDE RECORDS SUMMARY | 2025-02-27 06:28 | XMS_ITS | Clinical Summary ---
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 Gender Identity Not on file Sexual Orientation Not on file Last Filed Vital Signs Vital Sign Reading Time Taken Comments Blood Pressure 134/79 02/28/2018 2:49 AM CUSTOMER GREETER Pulse 86 02/28/2018 2:49 AM CUSTOMER GREETER Temperature 36.3 C (97.4 F) 02/28/2018 2:49 AM CUSTOMER GREETER Respiratory Rate - - Oxygen Saturation 98% 02/28/2018 2:49 AM CUSTOMER GREETER Inhaled Oxygen Concentration - - Weight 72.6 kg (160 lb) 02/28/2018 2:49 AM CUSTOMER GREETER Height 185.4 cm (6' 1) 02/28/2018 2:49 AM CUSTOMER GREETER Body Mass Index 21.11 02/28/2018 2:49 AM CUSTOMER GREETER Plan of Treatment Not on file Insurance MEDICARE [employer] * Guarantor: Cruz Carreon Herminio Account Type Relation to Patient Date of Phone Billing Address Personal/Family Self [address] [place] [id number] Care Teams Lean Specialist Relationship Specialty Start Date End Date Yolie Solomon MD [address] [place] [id number] PCP - General Family Medicine 08/05/20
--- OUTSIDE RECORDS SUMMARY | 2025-02-27 06:28 | XMS_ITS | Clinical Summary ---
Author Organization 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
== END 2025-02-27 07:10 | disposition left against medical advice (07) ==
PROVIDERS: Emergency Provider Student in an Organized Health Care Education/Training Program; PCP Family Medicine
DX: R10.13 Epigastric pain (principal)
CPT/HCPCS: 93005; 99199

== ENCOUNTER 2025-03-24 03:43 | Emergency (ER) | payer MEDICARE, SELFPAY ==
[2025-03-24 03:50] VITALS: BP 138/97; PULSE 72; RESP 19; TEMP 36.6; O2SAT 100
[2025-03-24 04:00] VITALS: BP 146/93; PULSE 68; RESP 19; TEMP 36.8; O2SAT 100
--- NOTE | 2025-03-24 04:09 | ED_ITS ---
HPI - General Adult General Chief complaint: Allergic Reaction Stated complaint: allergic reaction Time Seen by Provider: 03/24/25 04:05 History of Present Illness HPI narrative: 74-year-old male presents emergency department for evaluation for swelling of his upper lip. Patient reports symptoms started approximately 7:00 p.m. last night. Patient states he had previously been on lisinopril this medication was stopped due to having some angioedema and Caroline. Patient states the symptoms have been going on for approximately 10 hours at this time. Patient denies any difficulty breathing or swallowing. Patient denies any swelling of his tongue. Related Data Home Medications ?Medication ?Instructions ?Recorded ?Confirmed ?Last Taken ?Type aspirin 81 mg tablet,delayed 81 mg PO DAILY 02/20/24 0 12/22/24 Unknown History release Allergies Allergy/AdvReac Type Severity Reaction Status Date / Time lisinopril AdvReac Severe Swelling Verified 03/24/25 03:44 of Lip/Tongue/Throat Review of Systems Review of Systems: All systems reviewed & are unremarkable except as noted in HPI and below PMFSH Past Medical History Medical History Insufficient sleep syndrome Headache Recurrent syncope Hypertension Benign prostatic hyperplasia Left-sided carotid artery disease Cerebrovascular accident (2022) Colon polyp Tobacco abuse Surgical History Surgical History History of open reduction and internal fixation (ORIF) procedure repair of right wrist fracture History of tonsillectomy History of left-sided carotid endarterectomy 10/2023 Family History Family History Father History of alcoholism Heart disease Cerebrovascular accident Mother Diabetes mellitus Depression Sibling Lung cancer Other Thyroid disorder Social History Social History Social History: Surrogate medical decision maker: Amelia Carreon, sister. Code status: Full code. Smoking packs per day: 0.5 Smoking cigarettes per day: 10.0 Years smoked: 10 Smoking pack-years: 5.00 Smoking status: Current every day smoker Tobacco type: cigarettes Second hand tobacco smoke exposure: Yes Alcohol intake: former Substance use: current Substance use type: marijuana Last use: Pt last usage was last night. 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 Spiritual care concerns: No Exam Narrative: APPEARANCE: Swelling of the upper lip and upper face HEAD: normocephalic, atraumatic. EYES: PERRLA/EOMI, conjunctivae clear. NOSE: Normal no drainage EARS:TMS clear with good light reflex. THROAT: Pharynx clear, no exudate. No posterior pharynx swelling no swelling of tongue no stridor NECK: Supple. No adenopathy, no masses. RESPIRATORY: Airway patent, respirations nonlabored. Clear to auscultation bilaterally, no rales, rhonchi, wheezing. CARDIOVASCULAR: Regular rate and rhythm without murmurs rubs or gallops. ABDOMINAL: Soft, nontender, nondistended, normal bowel sounds MUSCULOSKELETAL: Moves all extremities. Strength/ROM intact, No edema, No calf tenderness. NEURO: Alert. Cranial nerves II through XII intact. Good gait. Good coordination SKIN: Warm, dry. Normal Color Course Vital Signs Vital signs: Vital Signs Temperature 98 F 03/24/25 03:50 Pulse Rate 72 03/24/25 03:50 Respiratory Rate 19 03/24/25 03:50 Blood Pressure 138/97 H 03/24/25 03:50 Pulse Oximetry 100 03/24/25 03:50 Oxygen Delivery Room Air 03/24/25 03:50 Temperature 98.5 F 03/24/25 05:45 Pulse Rate 77 03/24/25 05:45 Respiratory Rate 15 03/24/25 05:45 Blood Pressure 121/93 H 03/24/25 05:45 Pulse Oximetry 100 03/24/25 05:45 Oxygen Delivery Room Air 03/24/25 03:55 MDM MDM Narrative Medical decision making narrative: 74-year-old male presenting to the emergency department for evaluation for worsening facial swelling. Patient denies any swelling of the tongue denies any difficulty breathing or swallowing. Patient does have a recurrent history of this reaction. Patient had previously been on lisinopril but stopped. Swelling started approximately 7:00 p.m. last night. Patient was treated with IM epinephrine, famotidine, Benadryl and Solu-Medrol. Patient was evaluated emergency department for greater than 2 hours and patient felt significant improvement. Patient was requesting to be discharged to home. Patient has been stable. Patient will be started on steroids for the next 5 days. Patient was also encouraged close follow-up with primary care physician. Patient was also very reliable in stating that if he had any symptoms involving difficulty breathing or swallowing or swelling of the tongue that he would return promptly to the emergency department. Differential Diagnosis Differential Diagnosis: Blood reaction, angioedema Discharge Plan Discharge Clinical Impression: Angio-edema Patient Disposition: Home Condition: Stable Instructions: Antibiotic Form Additional Instructions: Have close follow-up with your primary care physician. Prednisone as directed. If you have any worsening symptoms then please call or return to the emergency department. Patient Language: Khmer Prescriptions: New prednisone 50 mg tablet 50 mg PO DAILY 5 Days Qty: 5 0RF No Action aspirin 81 mg tablet,delayed release (DR/EC) 81 mg PO DAILY sildenafil [Viagra] 50 mg tablet 50 mg PO DAILY PRN (Reason: sexual activity) Qty: 14 1RF Rx Instructions: administer 30 minutes to 4 hours before activity tadalafil [Cialis] 5 mg tablet 5 mg PO DAILY Qty: 90 1RF hydralazine 10 mg tablet 10 mg PO BID Qty: 60 6RF omeprazole 40 mg capsule,delayed release(DR/EC) 40 mg PO DAILY Qty: 30 0RF Follow-up/Referrals: Fabiano Mosley MD [Primary Care Provider, Family Practice]
[2025-03-24] MEDS: EPINEPHrine HCL INJ 1 MG/ML AMPUL 0.3 MG IM (04:16)
[2025-03-24] MEDS: FAMOTIDINE 20 MG/2 ML VIAL IV PUSH (04:16)
[2025-03-24 05:00] VITALS: BP 134/87; PULSE 77; RESP 17; TEMP 36.8; O2SAT 100
[2025-03-24 05:45] VITALS: BP 121/93; PULSE 77; RESP 15; TEMP 36.9; O2SAT 100
== END 2025-03-24 05:57 | disposition home or self-care (01) ==
PROVIDERS: Emergency Provider Emergency Medicine; PCP Family Medicine
DX: T78.3XXA Angioneurotic edema, initial encounter (principal); I10 Essential (primary) hypertension; I25.10 Atherosclerotic heart disease of native coronary artery without angina pectoris; N40.0 Benign prostatic hyperplasia without lower urinary tract symptoms; F17.210 Nicotine dependence, cigarettes, uncomplicated; Z86.73 Personal history of transient ischemic attack (TIA), and cerebral infarction without residual deficits; Z86.0100 Personal history of colon polyps, unspecified; Z79.82 Long term (current) use of aspirin; Z79.899 Other long term (current) drug therapy
CPT/HCPCS: 96372; 96374; 96375; 99284; J0166; J1200; J2919

== ENCOUNTER 2025-04-14 14:37 | Outpatient (CLI) | payer MEDICARE, SELFPAY ==
--- OUTSIDE RECORDS SUMMARY | 2025-04-14 14:53 | XMS_ITS | Clinical Summary ---
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 Gender Identity Not on file Sexual Orientation Not on file Last Filed Vital Signs Vital Sign Reading Time Taken Comments Blood Pressure 134/79 02/28/2018 2:49 AM RACING CAR DRIVER Pulse 86 02/28/2018 2:49 AM RACING CAR DRIVER Temperature 36.3 C (97.4 F) 02/28/2018 2:49 AM RACING CAR DRIVER Respiratory Rate - - Oxygen Saturation 98% 02/28/2018 2:49 AM RACING CAR DRIVER Inhaled Oxygen Concentration - - Weight 72.6 kg (160 lb) 02/28/2018 2:49 AM RACING CAR DRIVER Height 185.4 cm (6' 1) 02/28/2018 2:49 AM RACING CAR DRIVER Body Mass Index 21.11 02/28/2018 2:49 AM RACING CAR DRIVER Plan of Treatment Not on file Insurance MEDICARE [employer] Care Teams Electronic Die Maker Relationship Specialty Start Date End Date Yolie Solomon MD [address] [place] [id number] PCP - General Family Medicine 08/05/20
--- OUTSIDE RECORDS SUMMARY | 2025-04-14 14:53 | XMS_ITS | Clinical Summary ---
Author Organization [facility] Address [address] [place] [id number] Care Team Providers Care Otolaryngology Teacher Name Role Phone Unavailable Primary Care [...]
[2025-04-14 15:08] LABS: Hematocrit 41.2 % (42.0-52.0); Hemoglobin 14.0 g/dL (14.0-18.0); Immature Granulocyte Percent A 0.4 % (0-0.5); Lymphocytes Absolute Auto 1.78 K/mm3 (0.9-3.2); Mean Corpuscular HGB Conc 34.0 g/dl (32-36); Mean Corpuscular Hemoglobin 32.4 pg (26-34); Mean Corpuscular Volume 95.4 fl (80-100); Nucleated Red Blood Cells Absolute Auto 0.000 K/mm3 (0.0-0.012); Nucleated Red Blood Cells Perc 0.0 % (0.0-0.2); Platelet Count Result 285 k/mm3 (150-375); Red Blood Count 4.32 M/mm3 (4.6-6.20); White Blood Count 5.3 K/mm3 (4.5-10.0)
[2025-04-14 15:28] LABS: Alanine Aminotransferase 12 U/L (6-50); Albumin Level 4.3 g/dL (3.5-5.1); Alkaline Phosphatase 95 U/L (38-126); Anion Gap 7 mmol/L (4-12); Aspartate Amino Transferase 22 U/L (17-59); Bilirubin,Total 0.9 mg/dL (0.2-1.3); Blood Urea Nitrogen 23 mg/dL (9-20); Calcium 10.3 mg/dL (8.4-10.2); Carbon Dioxide 29 mmol/L (22-30); Chloride 101 mmol/L (98-107); Cholesterol 252 mg/dL (0-200); Estimated Glomerular Filt Rate 47; Glucose 109 mg/dL (65-110); HDL Direct 54 mg/dL; Potassium 4.1 mmol/L (3.4-5.0); Sodium 137 mmol/L (137-145); Total Protein 7.6 g/dL (6.3-8.2); Triglycerides 134 mg/dL (<150)
[2025-04-14 15:31] LABS: Total Protein Urine Random 49 mg/dL; Ur Ttl Prot Creatinine Ratio 0.27 mg/mg (0-0.20)
[2025-04-14 16:04] LABS: Prostate Specific Antigen 12.6 ng/mL (< OR = 4.0)
[2025-04-14 16:30] LABS: Vitamin B12 741.0 pg/mL (239-931)
== END 2025-04-14 14:38 | disposition home or self-care (01) ==
PROVIDERS: PCP Family Medicine; Visit Provider Internal Medicine Nephrology
DX: Z12.5 Encounter for screening for malignant neoplasm of prostate (principal); I12.9 Hypertensive chronic kidney disease with stage 1 through stage 4 chronic kidney disease, or unspecified chronic kidney disease; N18.32 Chronic kidney disease, stage 3b; R97.20 Elevated prostate specific antigen [PSA]; I63.9 Cerebral infarction, unspecified; N52.9 Male erectile dysfunction, unspecified; M54.50 Low back pain, unspecified; R55 Syncope and collapse; F51.12 Insufficient sleep syndrome; R51.9 Headache, unspecified
CPT/HCPCS: 36415; 80053; 80061; 82306; 82570; 82607; 84100; 84153; 84156; 85025; G0103